=== PATIENT | male | born 1945 | race Caucasian/White ===

== ENCOUNTER 2018-05-18 17:16 | Emergency (ER) | payer MEDICARE, SELFPAY ==
[2018-05-18 17:18] VITALS: BP 196/70; PULSE 91; RESP 22; TEMP 36.6; O2SAT 100; BMI 36.6
--- NOTE | 2018-05-18 17:28 | RAD_ITS ---
STUDY: X-RAY - RIGHT RADIUS AND ULNA REASON FOR EXAM: Male, 72 years old. Dogbite. TECHNIQUE: 2 view(s) of the forearm. COMPARISON: None. FINDINGS: Extensive lacerations and soft tissue air is seen consistent with the history of lacerations from dog bites. Normal visualized radius. Normal visualized ulna. There is no demonstrated acute fracture. No radiopaque foreign bodies. RAD/Forearm 2 Views IMPRESSION: Normal x-ray examination of the radius and ulna. Extensive soft tissue air from dog bites. Electronically Signed: Apolinar Salcido MD at 18:46 EDT , Service support ,
--- NOTE | 2018-05-18 17:28 | RAD_ITS ---
STUDY: X-RAY - RIGHT HAND REASON FOR EXAM: Male, 72 years old. Multiple dog bites. TECHNIQUE: 3 view(s) of the hand. COMPARISON: None. FINDINGS: Normal radiocarpal articulation. Normal distal radioulnar joint. Normal visualized carpal bones. Normal carpal articulations Normal carpometacarpal articulation of the thumb. Normal second through fifth carpometacarpal joints. Normal metacarpi. Normal metacarpophalangeal joint of the thumb. Normal interphalangeal joint of the thumb. Normal proximal and distal phalanges of the thumb. Normal metacarpophalangeal joints of the second through fifth fingers. Normal proximal and distal interphalangeal joints of the second through fifth fingers. Normal phalanges of the second through fifth fingers. Soft tissue air is seen consistent with the history of dog bites. No radiopaque foreign bodies. RAD/Hand Min 3 Views IMPRESSION: No fractures or dislocations. Electronically Signed: Apolinar Salcido MD at 18:48 EDT , Service support ,
[2018-05-18] MEDS: Morphine 4 MG/ML Syringe IV ×2 (17:31→21:48)
[2018-05-18] MEDS: Ondansetron 4 MG/2 ML Vial IV (17:32)
[2018-05-18 17:36] VITALS: BP 171/82; PULSE 86; RESP 16
--- NOTE | 2018-05-18 17:43 | RAD_ITS ---
STUDY: X-RAY - LEFT HAND REASON FOR EXAM: Male, 72 years old. Multiple dog bites with puncture wounds in tears. TECHNIQUE: 3 view(s) of the hand. COMPARISON: None. FINDINGS: Normal radiocarpal articulation. Normal distal radioulnar joint. Normal visualized carpal bones. Normal carpal articulations Normal carpometacarpal articulation of the thumb. Normal second through fifth carpometacarpal joints. Normal metacarpi. Normal metacarpophalangeal joint of the thumb. Normal interphalangeal joint of the thumb. Normal proximal and distal phalanges of the thumb. Normal metacarpophalangeal joints of the second through fifth fingers. Mild degenerative changes of the interphalangeal joints. Normal phalanges of the second through fifth fingers. Soft tissue injury around the wrist without underlying foreign body. RAD/Hand Min 3 Views IMPRESSION: Soft tissue injury around the wrist without underlying fracture, dislocation or foreign body. Electronically Signed: Cynthia Ta MD at 20:08 EDT , Service support ,
--- NOTE | 2018-05-18 17:43 | RAD_ITS ---
STUDY: X-RAY - LEFT RADIUS AND ULNA REASON FOR EXAM: Male, 72 years old. Multiple dog bites. TECHNIQUE: 2 view(s) of the forearm. COMPARISON: None. FINDINGS: Extensive soft tissue air is seen consistent with a history of dog bites. No radiopaque foreign bodies are seen. Normal visualized radius. Normal visualized ulna. RAD/Forearm 2 Views IMPRESSION: Normal x-ray examination of the radius and ulna. Extensive soft tissue air. Electronically Signed: Apolinar Salicdo MD at 18:49 EDT , Service support ,
--- NOTE | 2018-05-18 17:49 | ED.RN ---
UNABLE TO ENTER ADACEL ORDER INTO [facility]. MED GIVEN ADACEL 0.5ML LOT [id number], EXP 07/15/2020. LEFT DELT. VACCINE INFORMATION SHEET GIVEN.
[2018-05-18 19:28] VITALS: BP 173/84; PULSE 80; RESP 16; O2SAT 98
[2018-05-18 20:30] VITALS: BP 165/82; PULSE 86; RESP 16; O2SAT 97
[2018-05-18 21:00] VITALS: BP 168/68; PULSE 90; RESP 18; O2SAT 96
--- NOTE | 2018-05-18 21:43 | ED.VISSUMM ---
- ER Visit Summary Date of Service: 05/18/18 Chief Complaint: Dog bites History of Present Illness: The patient is a 72 M with multiple dog bites. A pit bull in his neighborhood attacked him. He put up his forearms and the dog bit his bilateral arms. He is unsure of his tetanus status. Denies any numbness or weakness. Physical Examination: Blood pressure 196/70. Otherwise vitals unremarkable. Afebrile. Alert and oriented. No acute distress, but he appears uncomfortable. Bilateral upper extremities are neurovascularly intact distally. No gross deformities. He has multiple abrasions and lacerations. Left arm reveals a dorsal forearm laceration, approximately 5 cm in length. He also has multiple smaller abrasions over his left forearm and wrist. Right arm shows a 7 cm laceration transverse across his dorsal right wrist. He also has a 5 cm laceration over distal third of his dorsal forearm. He has 2 smaller lacerations over his volar forearm measuring 2 cm and 3 cm approximately. He also has multiple abrasions over his right forearm and wrist. Test Results: X-rays of his forearms and hands were unremarkable for fracture. He does have soft tissue injury. Emergency Department Course and Treatment: Tetanus was updated. Patient was treated with morphine. He also received a dose of Ancef IV. High risk of infection, neurovascular injury, and other complications discussed. Wounds were closed with saline and surgical cleanser using a fruit washer. There was some delay in obtaining x-ray results. Once his x-rays were negative, I anesthetized his left forearm laceration. This was closed loosely with 3 simple interrupted sutures. His abrasions were also cleaned. They were otherwise left open. Dressings applied and antibiotic ointment applied. Right forearm lacerations, on further inspection revealed extensor tendon rupture. This was closed loosely with 1 suture. His volar lacerations were left open. The more proximal laceration over his dorsal forearm was closed with 3 sutures, loosely. Wounds were covered with nonadherent dressings. Patient will need operative washout, tendon repair, and further surgical care. He was discussed with Dr. Kelly. Nonstick dressings applied. The patient was splinted with fingers in extension and wrist extended to about 20?. Patient tolerated this well and was neurovascular intact distally afterwards. Patient treated with Ancef. He received a prescription for Percocet and Augmentin. He should call Dr. Kelly's office tomorrow for follow-up and operative care [phone]. Return for increased pain, bleeding, or any other complications. If he has trouble following up or any other complications, he should return immediately. Do not wait for follow-up. Treatment Plan: As above Disposition: Discharged Impression: 1. Dog bite bilateral arms 2. Right wrist extensor digitorum tendon laceration This note was generated with [employer] dictation software. It may contain incorrect words, spelling, and punctuation that were not noted in review of the chart prior to signing ED Disposition - Plan for ED Patient: Disposition: Home or Assisted Living Chief Complaint: Bite Instructions: ED Bite Dog Prescriptions: Oxycodone HCl/Acetaminophen [Percocet 5/325] 1 tab PO Q6H PRN PRN 3 Days #12 tab PRN Reason: Pain Amox/Clavulanate Tablet [Augmentin Tablet] 875 mg PO Q12H #20 tab Additional Instructions: Call for follow-up with Dr. Kelly in the morning. [phone]. You will need to be seen right away for operative washout of your wounds and extensor tendon repair.
--- NOTE | 2018-05-18 21:48 | ED.DCSUM_ITS ---
- ER Visit Summary Date of Service: 05/18/18 Chief Complaint: Dog bites History of Present Illness: The patient is a 72 M with multiple dog bites. A pit bull in his neighborhood attacked him. He put up his forearms and the dog bit his bilateral arms. He is unsure of his tetanus status. Denies any numbness or weakness. Physical Examination: Blood pressure 196/70. Otherwise vitals unremarkable. Afebrile. Alert and oriented. No acute distress, but he appears uncomfortable. Bilateral upper extremities are neurovascularly intact distally. No gross deformities. He has multiple abrasions and lacerations. Left arm reveals a dorsal forearm laceration, approximately 5 cm in length. He also has multiple smaller abrasions over his left forearm and wrist. Right arm shows a 7 cm laceration transverse across his dorsal right wrist. He also has a 5 cm laceration over distal third of his dorsal forearm. He has 2 smaller lacerations over his volar forearm measuring 2 cm and 3 cm approximately. He also has multiple abrasions over his right forearm and wrist. Test Results: X-rays of his forearms and hands were unremarkable for fracture. He does have soft tissue injury. Emergency Department Course and Treatment: Tetanus was updated. Patient was treated with morphine. He also received a dose of Ancef IV. High risk of infection, neurovascular injury, and other complications discussed. Wounds were closed with saline and surgical cleanser using a cake washer. There was some delay in obtaining x-ray results. Once his x-rays were negative , I anesthetized his left forearm laceration. This was closed loosely with 3 simple interrupted sutures. His abrasions were also cleaned. They were otherwise left open. Dressings applied and antibiotic ointment applied. Right forearm lacerations, on further inspection revealed extensor tendon rupture. This was closed loosely with 1 suture. His volar lacerations were left open. The more proximal laceration over his dorsal forearm was closed with 3 sutures, loosely. Wounds were covered with nonadherent dressings. Patient will need operative washout, tendon repair, and further surgical care. He was discussed with Dr. Kelly. Nonstick dressings applied. The patient was splinted with fingers in extension and wrist extended to about 20?. Patient tolerated this well and was neurovascular intact distally afterwards. Patient treated with Ancef. He received a prescription for Percocet and Augmentin. He should call Dr. Kelly's office tomorrow for follow-up and operative care [phone]. Return for increased pain, bleeding, or any other complications. If he has trouble following up or any other complications, he should return immediately. Do not wait for follow-up. Treatment Plan: As above Disposition: Discharged Impression: 1. Dog bite bilateral arms 2. Right wrist extensor digitorum tendon laceration This note was generated with [employer] dictation software. It may contain incorrect words, spelling, and punctuation that were not noted in review of the chart prior to signing ED Disposition - Plan for ED Patient: Disposition: Home or Assisted Living Chief Complaint: Bite Instructions: ED Bite Dog Prescriptions: Oxycodone HCl/Acetaminophen [Percocet 5/325] 1 tab PO Q6H PRN PRN 3 Days #12 tab PRN Reason: Pain Amox/Clavulanate Tablet [Augmentin Tablet] 875 mg PO Q12H #20 tab Additional Instructions: Call for follow-up with Dr. Kelly in the morning. [phone]. You will need to be seen right away for operative washout of your wounds and extensor tendon repair.
[2018-05-18] MEDS: Cefazolin 1 GM/50 ML BAG IV (21:51)
--- NOTE | 2018-05-18 21:51 | DCINST.ED_ITS ---
ED Disposition - Plan for ED Patient: Chief Complaint: Bite Instructions: ED Bite Dog Prescriptions: Oxycodone HCl/Acetaminophen [Percocet 5/325] 1 tab PO Q6H PRN PRN 3 Days #12 tab PRN Reason: Pain Amox/Clavulanate Tablet [Augmentin Tablet] 875 mg PO Q12H #20 tab Additional Instructions: Call for follow-up with Dr. Kelly in the morning. [phone]. You will need to be seen right away for operative washout of your wounds and extensor tendon repair.
[2018-05-18] MEDS: HYDROcodone Bitartrate/Apap 5/325 Tablet PO (23:04)
[2018-05-18 23:05] VITALS: BP 150/75; PULSE 96; RESP 16; O2SAT 95
== END 2018-05-18 23:06 | disposition home or self-care (01) ==
PROVIDERS: Emergency Provider Emergency Medicine; Family Provider Family Medicine; PCP Family Medicine
DX: S66.329A Laceration of extensor muscle, fascia and tendon of unspecified finger at wrist and hand level, initial encounter (principal); S51.812A Laceration without foreign body of left forearm, initial encounter; S51.811A Laceration without foreign body of right forearm, initial encounter; S50.812A Abrasion of left forearm, initial encounter; S50.811A Abrasion of right forearm, initial encounter; W54.0XXA Bitten by dog, initial encounter; Y93.9 Activity, unspecified; Y92.89 Other specified places as the place of occurrence of the external cause; J45.909 Unspecified asthma, uncomplicated; Z79.899 Other long term (current) drug therapy
CPT/HCPCS: 12005; 73090; 73130; 90715; 96365; 96375; 96376; 99285; J2405

== ENCOUNTER → 2018-08-27 20:18 | Outpatient (CLI) | payer MEDICARE, SELFPAY | PROVIDERS: Family Provider Family Medicine; PCP Family Medicine; Referring Provider Family Medicine; Visit Provider Family Medicine | DX: J02.9 Acute pharyngitis, unspecified (principal) | CPT/HCPCS: 87070 ==

== ENCOUNTER → 2018-09-01 18:09 | Outpatient (CLI) | payer MEDICARE, SELFPAY | PROVIDERS: Family Provider Family Medicine; PCP Family Medicine; Referring Provider Otolaryngology; Visit Provider Otolaryngology | DX: B37.0 Candidal stomatitis (principal) | CPT/HCPCS: 87070; 87205 ==

== ENCOUNTER 2019-04-04 17:39 | Emergency (ER) | payer MEDICARE, SELFPAY ==
[2019-04-04 17:41] VITALS: BP 161/82; PULSE 75; RESP 15; TEMP 36.4; O2SAT 98; BMI 38.2
--- NOTE | 2019-04-04 17:49 | CT_ITS ---
STUDY: CT ABDOMEN AND PELVIS WITH CONTRAST REASON FOR EXAM: Male, 73 years old. Left lower quadrant pain. RADIATION DOSAGE (If Supplied By Facility): CTDIvol = ( 22.06 ) mGy, DLP = ( 1429.37 ) mGycm TECHNIQUE: Transaxial images were obtained from the dome of the diaphragm to the symphysis pubis without oral contrast. 100ML IV Isovue 300 was administered. Sagittal and coronal images were reconstructed. Individualized dose optimization techniques were used for this CT. COMPARISON: None. FINDINGS: The visualized lung bases are unremarkable. The visualized portions of the heart are within normal limits. Normal liver. There are surgical clips in the gallbladder fossa consistent with a prior cholecystectomy. Normal spleen. There is diffuse atrophy of the pancreas. Normal bilateral adrenal glands. There is mild cortical atrophy of the right kidney, consistent with chronic medical renal disease. There is mild cortical atrophy of the left kidney, consistent with chronic medical renal disease. Normal visualized stomach. Normal small intestine. Normal colon. The appendix is visualized and appears normal. There is diffuse atherosclerotic calcification of the abdominal aorta, without a demonstrated aneurysm. Normal inferior vena cava. Normal retroperitoneum. Normal urinary bladder. Normal visualized prostate gland. Normal abdominal wall. There are diffuse degenerative changes of the visualized lumbar spine. CT/Abdomen/Pelvis W IV Cont ONLY IMPRESSION: 1. No evidence of acute intra-abdominal process or focal inflammation. No evidence of bowel wall dilatation or air-fluid levels to suggest ileus versus obstruction. Normal appendix. Electronically Signed: Ace Kirby DO at 19:32 EDT , Service support ,
--- NOTE | 2019-04-04 17:52 | ED.DCSUM_ITS ---
- ER Visit Summary Date of Service: 04/04/19 Chief Complaint: Abdominal pain History of Present Illness: The patient is a 73 M with reported history of Crohn's disease who presents to the emergency department abdominal pain. Patient states that his symptoms began today. He states that he went out for lunch with his family at about noon. He states he had prime rib and salad. About 2 hours later, he began having sharp pain in his left lower quadrant. He states it hurts to move. He denies any diarrhea. He has been moving his bowels normally. He is noticed no blood in his bowel movement. The patient is only on Bentyl for his Crohn's. He does have a history of COPD but is not on home oxygen. He has had prior cholecystectomy, but no other abdominal surgery. He does not follow with GI, but does follow with his physician at the [facility]. Physical Examination: Vital signs reviewed General: Well-nourished, well-developed Head: Normocephalic, atraumatic Eyes: Pupils equal and reactive, extraocular muscles intact Neck, supple, no lymphadenopathy Heart: Regular rate and rhythm Respiratory: No distress, clear bilaterally Abdomen: Soft, mildly distended, tender in the left lower quadrant without rebound or guarding, no peritoneal signs Back: Nontender Extremities: Nontender, no edema, no cords Skin: Normal color no rash Neuro: Alert and oriented, no focal or lateralizing deficits Test Results: [] Emergency Department Course and Treatment: Patient states he has a history of Crohn's, but he is on no immunosuppressive agents. He has had no diarrhea, vomiting, or change in bowel habits. His pain was better acute after eating in his left lower quadrant. However, given his age and tenderness I did obtain imaging. Labs are obtained were unremarkable. Imaging shows really no acute abnormalities. With analgesics and antiemetics, his pain is improved and he is resting comfortably. His repeat exam is soft and nontender. There is a significant amount of stool burden on his CT. I do not suspect acute diverticulitis. At this time. I am going to treat the patient with antispasmodics and magnesium citrate. He is comfortable with this plan of care and will be discharged home. Treatment Plan: [] Disposition: Discharge Impression: 1. Left lower quadrant pain of unclear etiology This note was generated with [employer] software. It may contain incorrect words, spelling, and punctuation that were not noted in review of the chart prior to signing ED Disposition - Plan for ED Patient: Instructions: ED Abdominal Pain Unkn Cause Prescriptions: Dicyclomine HCl [Bentyl] 20 mg PO TIDAC #20 cap Docusate Sodium [Colace] 100 mg PO DAILY #20 cap Referrals: Cale Ansari MD [Primary Care Provider] -
[2019-04-04] MEDS: Morphine 4 MG/ML Syringe IV (18:14)
[2019-04-04] MEDS: 0.9% Normal Saline 1,000 ML 1000 ML IV (18:14)
[2019-04-04] MEDS: Ondansetron 4 MG/2 ML Vial IV (18:15)
[2019-04-04 18:17] LABS: Absolute Neutrophil Count 7.7 X10^3/uL (2.0-7.7); Basophil# 0.04 X10^3/uL; Basophil% 0.4 % (0-1); Eosinophil# 0.21 X10^3/uL; Eosinophils% 2.1 % (0-5); Hematocrit 42.9 % (40-54); Hemoglobin 14.7 g/dl (13.0-16.5); Lymphocyte % 13.7 % (19-41); Mean Corp Hgb Conc 34.3 g/gl (32-36); Mean Corpuscular Volume 90.5 fL (80-94); Mean Platelet Vol. 9.6 fl (6.2-12.0); Monocyte# 0.79 X10^3/uL; Monocyte% 7.8 % (0-10); Neutrophil # 7.73 X10^3/uL (2.7-7.7); Neutrophil % 75.8 % (47-70); Platelet Count 193 K/mm3 (150-450); RBC Distribution Width CV 12.8 % (11.6-14.6); RBC Distribution Width SD 42.2 fl (35.1-43.9); Red Blood Count 4.74 M/mm3 (4.6-6.2); White Blood Count 10.2 K/mm3 (4.4-11.0)
[2019-04-04 18:18] LABS: POSITIVE COUNT NO; POSITIVE DIFFERENTIAL NO; POSITIVE MORPHOLOGY NO
[2019-04-04 18:33] LABS: ALB/GLOB Ratio 1.1 RATIO (0.9-2.4); AST(SGOT) 17 U/L (15-37); Alanine Aminotransfer ALT/SGPT 29 U/L (16-61); Alkaline Phosphatase 105 U/L (45-117); Anion Gap 5 (5-15); BUN 21 mg/dL (7-18); BUN/Creat Ratio 18.6 RATIO (10-20); Calcium,Total 8.8 mg/dL (8.5-10.1); Chloride 106 mmol/L (98-107); Creatinine, Serum 1.13 mg/dL (0.70-1.30); EST Glomerular Filtration Rate 68 mL/min (>60); Est Glom Filt Rate - Afr Amer 82 mL/min (>60); Estimated Creatinine Clearance 61.91 ml/min; Globulin 3.7 g/dL (2.2-4.2); Glucose 96 mg/dL (74-106); Protein, Total 7.7 g/dL (6.4-8.2); Sodium Level 139 mmol/L (136-145)
[2019-04-04] MEDS: Magnesium Citrate 300 ML PO (19:45)
[2019-04-04 19:46] VITALS: BP 145/68; PULSE 64; RESP 18; O2SAT 96
[2019-04-04 19:49] VITALS: PULSE 68
== END 2019-04-04 19:51 | disposition home or self-care (01) ==
LOC: ED 18:00
PROVIDERS: Emergency Provider Emergency Medicine; Family Provider Family Medicine; PCP Family Medicine
DX: R10.32 Left lower quadrant pain (principal); K50.90 Crohn's disease, unspecified, without complications; K21.9 Gastro-esophageal reflux disease without esophagitis; J44.9 Chronic obstructive pulmonary disease, unspecified; Z79.899 Other long term (current) drug therapy; Z87.891 Personal history of nicotine dependence
CPT/HCPCS: 74177; 80053; 85025; 96361; 96374; 96375; 99284; J7030; Q9967; A4216; J2405

== ENCOUNTER → 2019-05-08 11:08 | Outpatient (CLI) | payer MEDICARE, SELFPAY ==
[2019-05-08 11:46] LABS: Hematocrit 42.2 % (40-54); Hemoglobin 14.1 g/dl (13.0-16.5); Mean Corp Hgb Conc 33.4 g/gl (32-36); Mean Corpuscular Hgb 30.5 pg (27.0-32.0); Mean Corpuscular Volume 91.1 fL (80-94); Mean Platelet Vol. 9.9 fl (6.2-12.0); Platelet Count 182 K/mm3 (150-450); RBC Distribution Width CV 13.3 % (11.6-14.6); RBC Distribution Width SD 43.7 fl (35.1-43.9); Red Blood Count 4.63 M/mm3 (4.6-6.2); White Blood Count 9.5 K/mm3 (4.4-11.0)
[2019-05-08 11:47] LABS: Scan Indicated on CBC? Y/N NO
== END ==
PROVIDERS: Family Provider Family Medicine; PCP Family Medicine; Referring Provider Internal Medicine Pulmonary Disease; Visit Provider Internal Medicine Pulmonary Disease
DX: J45.909 Unspecified asthma, uncomplicated (principal); T78.40XA Allergy, unspecified, initial encounter; K50.90 Crohn's disease, unspecified, without complications
CPT/HCPCS: 36415; 85027

== ENCOUNTER → 2019-07-10 11:18 | Outpatient (CLI) | payer MEDICARE, SELFPAY ==
[2019-07-10 13:17] LABS: Absolute Lymphocyte Count 0.98 X10^3/uL (0.83-4.51); Absolute Neutrophil Count 7.8 X10^3/uL (2.0-7.7); Basophil# 0.07 X10^3/uL; Basophil% 0.7 % (0-1); Eosinophil# 0.08 X10^3/uL; Eosinophils% 0.9 % (0-5); Hematocrit 41.5 % (40-54); Hemoglobin 13.7 g/dL (13.0-16.5); Lymphocyte # 0.98 X10^3/ul (4.0); Lymphocyte % 10.4 % (19-41); Mean Corpuscular Hgb 30.8 pg (27.0-32.0); Mean Corpuscular Volume 93.3 fL (80-94); Mean Platelet Vol. 10.4 fl (6.2-12.0); Monocyte# 0.36 X10^3/uL; Monocyte% 3.8 % (0-10); NRBC Flagged by Analyzer 0 % (0-5); Neutrophil # 7.81 X10^3/uL (2.7-7.7); Neutrophil % 83.3 % (47-70); Platelet Count 206 K/mm3 (150-450); RBC Distribution Width CV 13.1 % (11.6-14.6); RBC Distribution Width SD 44.3 fl (35.1-43.9); Red Blood Count 4.45 M/mm3 (4.6-6.2); White Blood Count 9.4 K/mm3 (4.4-11.0)
== END ==
PROVIDERS: Family Provider Family Medicine; PCP Family Medicine; Referring Provider Internal Medicine Pulmonary Disease; Visit Provider Internal Medicine Pulmonary Disease
DX: J45.909 Unspecified asthma, uncomplicated (principal)
CPT/HCPCS: 36415; 85025

== ENCOUNTER → 2019-09-08 12:15 | Outpatient (CLI) | payer MEDICARE, SELFPAY ==
[2019-09-08 12:58] LABS: Absolute Neutrophil Count 7.3 X10^3/uL (2.0-7.7); Basophil# 0.09 X10^3/uL; Eosinophil# 0.18 X10^3/uL; Eosinophils% 1.9 % (0-5); Hematocrit 44.3 % (40-54); Hemoglobin 14.7 g/dL (13.0-16.5); Lymphocyte % 11.9 % (19-41); Mean Corp Hgb Conc 33.2 g/dL (32-36); Mean Corpuscular Hgb 30.7 pg (27.0-32.0); Mean Corpuscular Volume 92.5 fL (80-94); Mean Platelet Vol. 10.2 fl (6.2-12.0); Monocyte# 0.57 X10^3/uL; Monocyte% 6.1 % (0-10); NRBC Flagged by Analyzer 0 % (0-5); Neutrophil # 7.27 X10^3/uL (2.7-7.7); Neutrophil % 78.3 % (47-70); Platelet Count 195 K/mm3 (150-450); RBC Distribution Width CV 12.8 % (11.6-14.6); RBC Distribution Width SD 43.5 fl (35.1-43.9); Red Blood Count 4.79 M/mm3 (4.6-6.2); White Blood Count 9.3 K/mm3 (4.4-11.0)
[2019-09-08 13:10] LABS: Anion Gap 3 (5-15); BUN 23 mg/dL (7-18); BUN/Creat Ratio 20.2 RATIO (10-20); Calcium,Total 8.7 mg/dL (8.5-10.1); Chloride 111 mmol/L (98-107); Creatinine, Serum 1.14 mg/dL (0.70-1.30); EST Glomerular Filtration Rate 67 mL/min (>60); Est Glom Filt Rate - Afr Amer 81 mL/min (>60); Glucose 119 mg/dL (74-106); Potassium 4.1 mmol/L (3.5-5.1); Sodium Level 142 mmol/L (136-145)
== END ==
PROVIDERS: Family Provider Family Medicine; PCP Family Medicine; Referring Provider Family Medicine; Visit Provider Family Medicine
DX: K57.92 Diverticulitis of intestine, part unspecified, without perforation or abscess without bleeding (principal); K50.90 Crohn's disease, unspecified, without complications
CPT/HCPCS: 36415; 80048; 85025

== ENCOUNTER → 2019-09-08 12:46 | Outpatient (CLI) | payer MEDICARE, SELFPAY ==
--- NOTE | 2019-09-08 12:52 | CT_ITS ---
STUDY: CT ABDOMEN AND PELVIS WITH CONTRAST REASON FOR EXAM: Male, 73 years old. Left lower quadrant pain. History of Crohn's disease. RADIATION DOSAGE (If Supplied By Facility): CTDIvol = ( 19.96 ) mGy, DLP = ( 1262.78 ) mGycm TECHNIQUE: Transaxial images were obtained from the dome of the diaphragm to the symphysis pubis with oral contrast. 100mL ml of Isovue 300 contrast was administered. Sagittal and coronal images were reconstructed. Individualized dose optimization techniques were used for this CT. COMPARISON: None. FINDINGS: The visualized lung bases are clear. The visualized portions of the heart and pericardium are within normal limits. The patient is status post cholecystectomy. The liver is within normal limits. There are no suspicious hepatic lesions. The spleen is normal in size. The pancreas is within normal limits. The adrenal glands are within normal limits. There are no renal or ureteral stones. There is no hydronephrosis. There are no focal renal lesions. Normal visualized stomach. There is no bowel obstruction or inflammation. The appendix is visualized and appears normal. The aorta is normal in caliber. There are atherosclerotic calcifications in the aorta. There is no abdominal or pelvic free air, free fluid, fluid collection or lymphadenopathy. The urinary bladder is thick-walled. There are no destructive osseous lesions. CT/Abdomen/Pelvis WITH Contrast IMPRESSION: Thick-walled urinary bladder. Clinical correlation is recommended to evaluate for cystitis. No bowel obstruction or inflammation. Normal appendix. Normal kidneys. No hydronephrosis. Electronically Signed: Michele Grande, at 15:54 EDT Tel , Service support ,
== END ==
PROVIDERS: Family Provider Family Medicine; PCP Family Medicine; Referring Provider Family Medicine; Visit Provider Family Medicine
DX: K57.92 Diverticulitis of intestine, part unspecified, without perforation or abscess without bleeding (principal); K50.90 Crohn's disease, unspecified, without complications
CPT/HCPCS: 36415; 74177; 80048; 85025; Q9967

== ENCOUNTER → 2019-10-13 08:32 | Outpatient (CLI) | payer MEDICARE, SELFPAY ==
--- NOTE | 2019-10-13 08:36 | RAD_ITS ---
STUDY: X-RAY - ESOPHAGUS (BARIUM SWALLOW) WITH FLUOROSCOPY REASON FOR EXAM: Male, 74 years old. Dysphagia for solids. TECHNIQUE: 20 fluoroscopic view(s) of the esophagus were obtained following swallowing of barium. FLUOROSCOPY TIME (if supplied): (0:24) minutes/seconds. COMPARISON: None. FINDINGS: There is no demonstrated esophageal foreign body. There is evidence of a small Zenker's diverticulum at the origin of the esophagus. Normal gastroesophageal junction, without a demonstrated hiatal hernia. The patient ingested a 12 mm tablet of barium without any difficulty. There is atherosclerotic calcification of the aortic arch with tortuosity of the descending aorta. Normal visualized pulmonary parenchyma. There are degenerative changes of the visualized thoracic spine. RAD/Esophagus Only IMPRESSION: Small Zenker's diverticulum at the origin of the esophagus. Electronically Signed: Abhishek Lemus, at 9:33 EST , Service support ,
== END ==
PROVIDERS: Family Provider Family Medicine; PCP Family Medicine; Referring Provider Family Medicine; Visit Provider Family Medicine
DX: K22.5 Diverticulum of esophagus, acquired (principal)
CPT/HCPCS: 74220

== ENCOUNTER → 2019-10-20 10:51 | Outpatient (CLI) | payer MEDICARE, SELFPAY ==
[2019-10-20 12:22] LABS: Absolute Lymphocyte Count 2.26 X10^3/uL (0.83-4.51); Absolute Neutrophil Count 4.3 X10^3/uL (2.0-7.7); Basophil# 0.09 X10^3/uL; Basophil% 1.1 % (0-1); Eosinophil# 0.42 X10^3/uL; Eosinophils% 5.3 % (0-5); Hematocrit 44.4 % (40-54); Hemoglobin 14.5 g/dL (13.0-16.5); Lymphocyte # 2.26 X10^3/ul (4.0); Lymphocyte % 28.6 % (19-41); Mean Corp Hgb Conc 32.7 g/dL (32-36); Mean Corpuscular Hgb 30.6 pg (27.0-32.0); Mean Corpuscular Volume 93.7 fL (80-94); Mean Platelet Vol. 10.2 fl (6.2-12.0); Monocyte# 0.75 X10^3/uL; Monocyte% 9.5 % (0-10); NRBC Flagged by Analyzer 0 % (0-5); Neutrophil # 4.34 X10^3/uL (2.7-7.7); Platelet Count 214 K/mm3 (150-450); RBC Distribution Width CV 12.9 % (11.6-14.6); Red Blood Count 4.74 M/mm3 (4.6-6.2); White Blood Count 7.9 K/mm3 (4.4-11.0)
[2019-10-24 13:32] LABS: Immunoglobulin E 213 IU/mL (6-495)
== END ==
PROVIDERS: Family Provider Family Medicine; PCP Family Medicine; Referring Provider Internal Medicine Pulmonary Disease; Visit Provider Internal Medicine Pulmonary Disease
DX: J45.909 Unspecified asthma, uncomplicated (principal)
CPT/HCPCS: 36415; 82785; 85025

== ENCOUNTER 2019-11-12 11:15 | Outpatient (RCR) | payer MEDICARE, SELFPAY ==
--- NOTE | 2019-11-12 12:02 | HP.PTEVAL ---
Patient's Visit Information LIBRADO GUILLEN is a 74 year old M referred to Physical Therapy by Cale King MD with a diagnosis of vertigo. Date of Evaluation: 11/12/19 Physical Therapist: Barrington Childers, DPT, OCS, CSCS - Visit Plan Frequency: 1x/Week Duration: 4-6 Weeks Plan: weekly x 2-4 as needed for. monitor positional, I treated with Wilber hannon and instruction today on management and minimizing head movement. May need other vestibular if dizzy persists without positive HD. Pt is to call prior to next visit if dizzyness worsens and should be checked for positional. - Subjective Findings: Saw chiropractor on Saturday who stretched him, when he rolled over on his side things started spinning and disorienting. Lasted that hour. Sitting still was OK but tried to pick something up off the floor and spun again. His brother picked him up and felt better. Went home but hard to walk without dizzyness. Went to Dr. King that day and sent for therapy. Pelion better the next morning. Moving head every half hour all day and came out of it. Leaning forward or bending forward can be disoriented. Currently feeling well. Pelion a little off yesterday bending forward disorenting temporarily. No diagnostics at doctor office. Activities back to normal. Sleep OK. - Pain PIÑA Pain Intensity (Out of 10): N/A Comment: pressure at times. - Objective Walks and trasnfers I into PT today. cervical ROM is WFL adn without dizzyness today. Walking VOR not dizzy or challenging for patient. - R hallpike jenny. + L hallpike for up torsional nystagmus 10 seconds. Treated with L parvez - Balance Scores Functional Gait Assessment Score: 29 % Disability: 3.3400 - Goals Goal 1:: abolish vertigo with head movements Goal Time Frame: 2-4 Weeks Goal 2:: - hallpike jenny testing. Goal Time Frame: 2-4 Weeks Goal 3:: Pt feel 100% back to normal Goal Time Frame: 4-6 Weeks Goal 4:: <10% DHI disability Goal Time Frame: 2-4 Weeks - Rehabilitation Potential Physical Therapy Diagnosis: L BPPV Rehabilitation Potential: Good - Anticipated Interventions Patient/Client Instruction: Educate patient on: Condition, Plan of Care For the Purpose of:: To increase tolerance to activity/condition/position Comment: positional treatments adn other vestibular if needed. For the Purpose of:: To increase tolerance to activity/condition/position, To improve ability of physical actions for home/community/work/leisure Thank you for the opportunity to evaluate your patient. For Medicare and Medicare HMO plans, please review the plan of care and approve it. It will need to be FAXED BACK to us at [phone] for Medicare purposes. For Medicare only, by signing this I certify the plan of care. Please let me know if there are questions or concerns regarding this plan of care. Physician Signature: Date:
--- NOTE | 2020-01-01 07:35 | HP.PT.NRP ---
HP - Discharge Summary (1) - Patient Information LIBRADO GUILLEN was seen in my office for initial evaluation on 11/12/19. The following Plan of Care was established for this patient: Initial Frequency: 1x/Week Initial Duration: 4-6 Weeks - Anticipated Interventions Patient/Client Instruction: Educate patient on: Condition, Plan of Care For the Purpose of:: To increase tolerance to activity/condition/position For the Purpose of:: To increase tolerance to activity/condition/position, To improve ability of physical actions for home/community/work/leisure This patient was last seen in our office 11/12/19. Pertinent comments regarding their Physical therapy will appear below: Pt seen one visit of positional treatment. she cancelled her f/u visit due to illness adn neglected to reschedule. At this point, it has been nearly 6 weeks and I will discontinue due to nonattendance. At this point I will be discontinuing this patient from physical therapy. I would be happy to see this patient again in the future if found appropriate by the physician. Thank you! Barrington Childers, DPT, OCS, CSCS
== END 2019-11-12 19:00 | disposition home or self-care (01) ==
LOC: PT 11:15
PROVIDERS: Family Provider Family Medicine; PCP Family Medicine; Referring Provider Family Medicine; Visit Provider Family Medicine
DX: R42 Dizziness and giddiness (principal)
CPT/HCPCS: 97161

== ENCOUNTER 2019-11-28 14:33 | Emergency (ER) | payer MEDICARE, SELFPAY ==
[2019-11-28 14:34] VITALS: BP 173/107; PULSE 86; RESP 16; TEMP 36.8; O2SAT 98; BMI 37.7
[2019-11-28 14:48] VITALS: BP 155/76; PULSE 76; RESP 18; O2SAT 96
--- NOTE | 2019-11-28 14:57 | CT_ITS ---
STUDY: CT BRAIN WITHOUT CONTRAST REASON FOR EXAM: Male, 74 years old. HEAD PRESSURE, PAIN X 2 WEEKS RADIATION DOSAGE (If Supplied By Facility): CTDIvol = ( 44.99 ) mGy, DLP = ( 829.85 ) mGycm TECHNIQUE: Transaxial CT imaging of the brain was performed without administration of intravenous contrast material. Individualized dose optimization techniques were used for this CT. COMPARISON: Report from 11/01/2010 (images not available). FINDINGS: Normal soft tissue structures. Normal calvarium. There is mild cerebral atrophy with widening of the extra-axial spaces and ventricular dilatation. There are areas of decreased attenuation within the white matter tracts of the supratentorial brain, consistent with microvascular disease changes. There is a small round hyperdense extra-axial lesion of the right frontal region measuring 1.1 x 1.1 cm without significant mass effect, likely correlating to probable meningioma described on prior CT report. Expected mild overlying bony remodeling. Normal basal ganglia and thalami. Normal brainstem. Normal cerebellum. There is no intracranial hemorrhage. There are no findings of an acute ischemic infarction. There is atherosclerosis of the carotid siphons and vertebral arteries. There is mucoperiosteal inflammatory disease of the paranasal sinuses consistent with moderate chronic sinusitis. There is soft tissue density in the right external auditory canal, likely representing cerumen. CT/Brain/Head without Contrast IMPRESSION: 1. No acute intracranial hemorrhage or mass effect. Electronically Signed: Zen Parker MD ([place]) at 15:42 EST , Service support ,
[2019-11-28] MEDS: DiphenhydrAMINE 50 MG/ML Syringe 25 MG IV (15:45)
[2019-11-28] MEDS: 0.9% Normal Saline 1,000 ML 999 ML IV (15:47)
[2019-11-28] MEDS: Metoclopramide 10 MG/2 ML Vial IV (15:47)
--- NOTE | 2019-11-28 16:34 | ED.DCSUM_ITS ---
- ER Visit Summary Date of Service: 11/28/19 Chief Complaint: Headache History of Present Illness: The patient is a 74 M who presents with a headache. He said this headache for 2 weeks. He describes a continuous throbbing in his head. Denies any falls or trauma. He has had nausea but no vomiting. He st ates at that time when it started he was having vertigo. He had an Conor maneuver done which helped his symptoms. He his dizziness is now gone but he still has this headache. He has meclizine as needed and he was also put on Augmentin at home. He has no history of migraines. He denies any fevers or any other recent illnesses. He denies any neck pain. Physical Examination: Vital signs reviewed. He does have some bilateral mastoid tenderness to palpation. HEENT exam unremarkable. Heart is regular rate and rhythm without murmurs. Lungs are clear to auscultation. Abdomen is soft and nontender. Extremities reveal no edema. Skin exam normal. Neurologic exam normal. Test Results: CT scan of the head is normal. Emergency Department Course and Treatment: Patient was given Reglan and Benadryl and IV fluids. He states his headache was unchanged so I gave him some Toradol. His blood pressure is 155 systolic. I do not feel that this is the cause. I see no infectious causes for the patient's pain. I feel he can be discharged to use [id number] medications such as Tylenol, Aleve or ibuprofen for his headache at home. He will call his doctor on Saturday for follow-up. Treatment Plan: [] Disposition: Discharge Impression: Headache This note was generated with [employer] dictation software. It may contain incorrect words, spelling, and punctuation that were not noted in review of the chart prior to signing ED Disposition - Plan for ED Patient: Referrals: Cale Raymundo MD [Primary Care Provider] -
--- NOTE | 2019-11-28 16:35 | ED.DEP ---
ED Disposition - Plan for ED Patient: Disposition: Home or Assisted Living Instructions: HEADACHE, Unspecified Referrals: Cale Raymundo MD [Primary Care Provider] -
[2019-11-28] MEDS: Ketorolac 30 MG/ML Syringe IV (16:40)
[2019-11-28 16:42] VITALS: BP 147/80; PULSE 67; RESP 16; O2SAT 98
[2019-11-28 17:14] VITALS: BP 157/78; PULSE 65; RESP 16; O2SAT 98
== END 2019-11-28 17:15 | disposition home or self-care (01) ==
PROVIDERS: Emergency Provider Emergency Medicine; Family Provider Family Medicine; PCP Family Medicine
DX: R51 Headache (principal)
CPT/HCPCS: 70450; 96361; 96374; 96375; 99282; J7030; A4216

== ENCOUNTER 2019-11-30 22:11 | Emergency (ER) | payer MEDICARE, SELFPAY ==
[2019-11-30 22:12] VITALS: BP 162/91; PULSE 93; RESP 20; TEMP 37.1; O2SAT 98; BMI 37.7
--- NOTE | 2019-11-30 22:48 | EKG12_ITS ---
Test Reason : DYSRHYTHMIA Blood Pressure : / mmHG Vent. Rate : 076 BPM Atrial Rate : 076 BPM P-R Int : 152 ms QRS Dur : 086 ms QT Int : 380 ms P-R-T Axes : 060 050 048 degrees QTc Int : 427 ms Normal sinus rhythm Normal ECG Confirmed by NASEEM LOVELL, ALISIA ([id number]), electronic news gathering editor SAM GUILLEN ([id number]) on 12/03/2019 10:30:39 AM Referred By: BB Confirmed By:ALISIA GUSMAN MD
--- NOTE | 2019-11-30 22:48 | RAD_ITS ---
HISTORY: C/O SOB SINCE 2229 EXAMINATION/TECHNIQUE: XR Chest 2 Views: COMPARISON: 04/12/2015 FINDINGS: Cardiac telemetry leads in place. No significant change. Normal heart size. Prominent lung volumes. No vascular congestion, pleural effusion, or acute pulmonary infiltration. No pneumothorax. Atherosclerotic thoracic aorta. Right axillary surgical clips. RAD/Chest PA and Lateral IMPRESSION: No acute cardiopulmonary disease. at 0042 Reported and signed by: Pedro Soto MD Electronically Signed: Pedro Soto, at 0:41 EST Tel , Service support ,
--- NOTE | 2019-11-30 22:49 | ED.VIS.GEN ---
History of Present Illness Chief Complaint: General Illness Detail of Chief Complaint: ilia smolly; see below Informant: Patient Timing: Intermittent, Lasts - minutes Quality: chills Location: from my legs up my body to the top of my stomach Current Severity: Mild Maximum Severity: Severe Worsened by: lying supine/reclined Relieved by: sitting up Associated Symptoms: sob. headache. Narrative: Patient presents complaining of multiple symptoms. He was started on Humira around for Crohn's and states since sometime shortly thereafter he has been having headaches off and on that are bifrontal/temporal, usually more prominent on one side than the other, today it is more prominent on the right. Saw his doctor for it relatively recently, was told he might have a sinus infection put on amoxicillin which she is now taking. He was seen here in the ER 2 days ago for the headaches and had a CT of his head that was negative, and given some medication at that time that took the headache away. Yesterday he had no headache. Today it came back while he was driving, relatively gradually, no thunderclap or loss of consciousness. He has had no focal neurologic symptoms with this, photophobia, vision changes, or vomiting. He does feel nauseated now but does not know if that is associated with a headache or not. He presents not necessarily for that, but for the other symptoms that developed today. He states when he lies back, even if not totally supine, he gets chills that go up his abdomen. They start in his legs. Cannot tell if it actually feels tingly or not, but if it does it is bilateral and symmetric and mild. He does not have any focal weakness when this occurs. He feels short of breath lying back as well, almost to the point of choking/gasping. When he sits up the symptoms resolve. He denies having any discomfort in his chest. The chills go up to his upper abdomen. He denies feeling any Crohn's pain, but states it feels like it wants to flareup but it is not. He has a history of reflux, and states this does not feel like his reflux symptoms have, he has had those off-and-on for years. He denies any pain in his jaw, neck, back when the symptoms occur. Denies any loss of consciousness or near syncope. He noticed he had some mild vertiginous symptomatology a few minutes ago when he got up to move around. Denies any ear pain, ringing, earache, or other upper respiratory infection symptoms. He denies having a cough. Denies any history of heart problems, swelling in his legs, he has asthma but states that does not feel like a factor here. - Past Medical History (1) GERD (gastroesophageal reflux disease) Status: Chronic (2) Bronchial asthma Status: Chronic (3) Crohn's disease Status: Chronic Past Medical History - Allergies and Home Meds Allergies/Adverse Reactions: Allergies escitalopram Adverse Reaction (Verified 11/30/19 22:14) Other SUICIDAL IDEATION Primary Care Physician: Cale Raymundo MD [Primary Care Provider] - Surgical History: cholecystectomy Smoking Status: Former smoker Alcohol: None Review of Systems General: Reports: Malaise. Denies: Chills, Fever, Sweats Eyes: Denies: Visual changes - bilaterally, Diplopia ENT: Denies: Bilateral ear pain, Rhinorrhea, Sore throat Cardiovascular: Denies: Chest pain, Palpitations Respiratory: Reports: Dyspnea, Orthopnea. Denies: Cough, Sputum, Dyspnea on exertion, Paroxysmal nocturnal dyspnea Gastrointestinal: Reports: Nausea. Denies: Abdominal pain, Vomiting, Diarrhea, Melena, Hematochezia Genitourinary: Denies: Dysuria, Hematuria, Frequency Musculoskeletal: Denies: Neck pain, Back pain, Swelling, Extremity Pain Skin: Denies: Rash, Wounds Neurological: Reports: Headache, Parasthesia. Denies: Weakness, Numbness Endocrine: Denies: Polyuria, Polydipsia, Heat intolerance, Cold intolerance Hematologic: Denies: Easy bruising, Easy bleeding Physical Exam Vital Signs/Narrative: Vital Signs Temp Pulse Resp BP Pulse Ox 11/30/19 22:12 98.7 F 93 20 H 162/91 H 98 Inital Vital Signs reviewed: Yes General: Well nourished, Well developed, Obese - trunkal, No Acute Distress Head: Normocephalic, Atraumatic Eyes: Perrl, EOMI ENT: Moist mucous membranes, No rhinorrhea, TM's clear. Negative for: Nasal congestion, Sinus tenderness Neck: Supple, Nontender, No lymphadenopathy, No JVD Cardiovascular: Regular rate, Regular rhythm, No murmurs, Normal S1, Normal S2. Negative for: Tachycardia Respiratory: No distress, CTA bilaterally, Chest nontender Abdomen: Soft, Nontender, Nondistended, Normal bowel sounds. Negative for: Pulsatile mass Back: Nontender, Normal Inspection. Negative for: CVA tenderness Extremities: Nontender, No edema. Negative for: Calf Tenderness Skin: Normal color, No rash, No Trauma Neurological: Alert, Oriented x3, Cranial nerves II-XII grossly intact, Normal Strength, Normal Sensation, Normal DTR, Normal Gait Psychological: Normal affect, Normal Mood Diagnostic/Tx/Re-eval Impressions Chest X-Ray 11/30/19 22:48 IMPRESSION: No acute cardiopulmonary disease. at 0042 Reported and signed by: Pedro Soto MD Electronically Signed: Pedro Soto, at 0:41 EST Tel , Service support , 11/30/19 22:48 Chest PA and Lateral [RAD] Stat Laboratory Results 11/30/19 11/30/19 11/30/19 23:15 23:15 23:15 WBC 7.3 RBC 4.35 L Hgb 13.3 Hct 39.7 L MCV 91.3 MCH 30.6 MCHC 33.5 RDW Std Deviation 42.2 RDW Coeff of Sandra 12.7 Plt Count 174 MPV 10.0 Immature Gran % (Auto) 0.500 Neut % (Auto) 59.6 Lymph % (Auto) 25.5 [place] % (Auto) 10.0 Eos % (Auto) 3.6 Baso % (Auto) 0.8 Absolute Neuts (auto) 4.3 Absolute Lymphs (auto) 1.86 Nucleated RBC % 0 Sodium 142 Potassium 3.8 Chloride 112 H Carbon Dioxide 27.0 Anion Gap 3 L BUN 19 H Creatinine 1.07 Estim Creat Clear Calc 64.43 Est GFR (MDRD) Af Amer 87 Est GFR (MDRD) Non-Af 72 BUN/Creatinine Ratio 17.8 Glucose 120 H Calcium 8.8 Total Bilirubin 0.30 AST 16 ALT 35 Alkaline Phosphatase 81 Troponin I < 0.015 B-Natriuretic Peptide 56.9 Total Protein 6.9 Albumin 3.5 Globulin 3.4 Albumin/Globulin Ratio 1.0 Lipase 132 - Rhythm Strip Rhythm Strip: Sinus Rhythm Rate: 75 Ectopy: None - EKG Initial EKG Interpretation: Sinus Rhythm, No Acute Injury Pattern - normal EKG Prior: Unchanged - Medical Decision Making Labs and chest x-ray and EKG are all very normal including BNP. There is no sign of a pleural effusion. Low BNP in double digits and rules out acute congestive heart failure as cause for his symptoms. There is no electrical alternans, low voltage, or cardiomegaly on his chest x-ray, which is unchanged compared with his prior with regards to the cardiac shadow. Therefore, I gave him a GI cocktail and an injection of Bentyl. He states all of his symptoms resolved and even with lying down he feels much better without dyspnea. For this reason I do not think he needs to have testing for pulmonary embolus or other acute cardiopulmonary pathology right now. His headaches sound like they may be a side effect of Humira, which is described but less frequently, it is possible that the respiratory symptoms could be a side effect of the Humira as well. I do not think he is having a Crohn's exacerbation, his stools have been normal without any blood, he has no diarrhea, and he has no abdominal tenderness, so no CT is indicated at this time. He is reassured advised to follow-up with his doctor, and continue taking his omeprazole. ED Disposition - Plan for ED Patient: Disposition: Home or Assisted Living Diagnosis: Spasm of bowel, Headache, Dyspnea Instructions: ABDOMINAL PAIN, Unkown Cause, (Male) Referrals: Cale Raymundo MD [Primary Care Provider] - 3-5 Days Additional Instructions: Headaches may be a side effect of the Humira, short shallow breathing has also been described; the abdominal symptoms are probably unrelated, but if these are recurrent, follow-up with your doctor.
[2019-11-30] MEDS: Ondansetron 4 MG/2 ML Vial IV (23:18)
[2019-11-30 23:25] LABS: Absolute Lymphocyte Count 1.86 X10^3/uL (0.83-4.51); Absolute Neutrophil Count 4.3 X10^3/uL (2.0-7.7); Basophil# 0.06 X10^3/uL; Basophil% 0.8 % (0-1); Eosinophil# 0.26 X10^3/uL; Eosinophils% 3.6 % (0-5); Hematocrit 39.7 % (40-54); Hemoglobin 13.3 g/dL (13.0-16.5); Lymphocyte # 1.86 X10^3/ul (4.0); Lymphocyte % 25.5 % (19-41); Mean Corp Hgb Conc 33.5 g/dL (32-36); Mean Corpuscular Hgb 30.6 pg (27.0-32.0); Mean Corpuscular Volume 91.3 fL (80-94); Monocyte# 0.73 X10^3/uL; NRBC Flagged by Analyzer 0 % (0-5); Neutrophil # 4.34 X10^3/uL (2.7-7.7); Neutrophil % 59.6 % (47-70); Platelet Count 174 K/mm3 (150-450); RBC Distribution Width CV 12.7 % (11.6-14.6); RBC Distribution Width SD 42.2 fl (35.1-43.9); Red Blood Count 4.35 M/mm3 (4.6-6.2); White Blood Count 7.3 K/mm3 (4.4-11.0)
[2019-11-30 23:42] LABS: AST(SGOT) 16 U/L (15-37); Alanine Aminotransfer ALT/SGPT 35 U/L (16-61); Albumin, Serum 3.5 g/dL (3.2-5.0); Alkaline Phosphatase 81 U/L (45-117); Anion Gap 3 (5-15); BUN 19 mg/dL (7-18); BUN/Creat Ratio 17.8 RATIO (10-20); Calcium,Total 8.8 mg/dL (8.5-10.1); Chloride 112 mmol/L (98-107); Creatinine, Serum 1.07 mg/dL (0.70-1.30); EST Glomerular Filtration Rate 72 mL/min (>60); Est Glom Filt Rate - Afr Amer 87 mL/min (>60); Estimated Creatinine Clearance 64.43 ml/min; Globulin 3.4 g/dL (2.2-4.2); Glucose 120 mg/dL (74-106); Lipase 132 U/L (73-393); Potassium 3.8 mmol/L (3.5-5.1); Protein, Total 6.9 g/dL (6.4-8.2); Sodium Level 142 mmol/L (136-145)
[2019-11-30 23:52] LABS: BNP,B-Type NATRIURETIC PEPTIDE 56.9 pg/mL (0-100)
[2019-12-01 00:40] VITALS: PULSE 72; RESP 12; O2SAT 97
[2019-12-01] MEDS: Mag Hydrox/Al Hydrox/Simeth 30 ML UDC PO (00:40)
[2019-12-01] MEDS: Dicyclomine 20 MG/2 ML Vial 10 MG IM (00:41)
[2019-12-01 01:43] VITALS: BP 131/69; PULSE 70; RESP 13; O2SAT 97
== END 2019-12-01 01:44 | disposition home or self-care (01) ==
PROVIDERS: Emergency Provider Emergency Medicine; Family Provider Family Medicine; PCP Family Medicine
DX: R19.8 Other specified symptoms and signs involving the digestive system and abdomen (principal); R51 Headache; R06.00 Dyspnea, unspecified; K21.9 Gastro-esophageal reflux disease without esophagitis; K50.90 Crohn's disease, unspecified, without complications; J45.909 Unspecified asthma, uncomplicated; Z90.49 Acquired absence of other specified parts of digestive tract; Z87.891 Personal history of nicotine dependence
CPT/HCPCS: 71046; 80053; 83690; 83880; 84484; 85025; 93005; 96372; 96374; 99285; A4216; J2405

== ENCOUNTER 2019-12-02 01:35 | Emergency (ER) | payer MEDICARE, SELFPAY ==
[2019-12-02 01:36] VITALS: BP 177/82; PULSE 81; RESP 18; TEMP 36.6; O2SAT 99; BMI 38.0
--- NOTE | 2019-12-02 01:50 | CT_ITS ---
STUDY: CT ABDOMEN AND PELVIS WITH CONTRAST REASON FOR EXAM: Male, 74 years old. ABDOMEN PAIN -- HX:CROHN''S,ASTHMA,GERD AND CHOLECYSTECTOMY -- * PT HAD PRIOR INJECTION AT ANOTHER HOSPITAL YESTERDAY THAT WE WERE NOT INFORMED ABOUT RADIATION DOSAGE (If Supplied By Facility): CTDIvol = ( 18.64 ) mGy, DLP = ( 1342.29 ) mGycm TECHNIQUE: Transaxial images were obtained from the dome of the diaphragm to the symphysis pubis without oral contrast. IV 100mL Isovue-300 was administered. Sagittal and coronal images were reconstructed. Individualized dose optimization techniques were used for this CT. COMPARISON: 09/08/2019. FINDINGS: There is mild posterior dependent lower lobe atelectasis, remainder of the lung bases are clear. The visualized portions of the heart are within normal limits. Normal liver. There are surgical clips in the gallbladder fossa consistent with a prior cholecystectomy. Normal spleen. Normal pancreas. Normal bilateral adrenal glands. There is a punctate stone versus early accumulation of contrast within the renal collecting system within the middle pole of the right kidney measuring 3 mm in the upper pole of the left kidney measuring 2.7 mm. There is minimal nonspecific bilateral perinephric stranding. Remainder bilateral kidneys within normal limits. The stomach is decompressed otherwise unremarkable. No hiatal hernia. Normal small intestine. There is increased fecal debris within the colon consistent with constipation. The appendix is visualized and appears normal. There is diffuse atherosclerotic calcification of the abdominal aorta, without a demonstrated aneurysm. Normal inferior vena cava. Normal retroperitoneum. Urinary bladder is opacified with contrast with multiple urinary bladder diverticuli present. Normal visualized prostate gland. Normal abdominal wall. Diffuse osteopenia along with mild degenerative disease of the spine, more severe at L4-L5. CT/Abdomen/Pelvis W IV Cont ONLY IMPRESSION: Constipation. No acute appendicitis or bowel obstruction. Status post cholecystectomy, remainder of abdominal viscera are unremarkable. Urinary bladder diverticuli, remainder of the exam unremarkable. Electronically Signed: Ary García MD at 3:02 EST , Service support ,
[2019-12-02] MEDS: Ondansetron 4 MG/2 ML Vial IV (02:01)
[2019-12-02] MEDS: 0.9% Normal Saline 1,000 ML 1000 ML IV (02:01)
[2019-12-02] MEDS: Morphine 4 MG/ML Syringe IV (02:01)
[2019-12-02 02:13] LABS: Absolute Lymphocyte Count 1.73 X10^3/uL (0.83-4.51); Absolute Neutrophil Count 5.2 X10^3/uL (2.0-7.7); Basophil# 0.05 X10^3/uL; Basophil% 0.6 % (0-1); Eosinophils% 2.5 % (0-5); Hematocrit 40.8 % (40-54); Hemoglobin 13.6 g/dL (13.0-16.5); Lymphocyte # 1.73 X10^3/ul (4.0); Lymphocyte % 21.8 % (19-41); Mean Corp Hgb Conc 33.3 g/dL (32-36); Mean Corpuscular Hgb 30.5 pg (27.0-32.0); Mean Corpuscular Volume 91.5 fL (80-94); Monocyte# 0.73 X10^3/uL; Monocyte% 9.2 % (0-10); NRBC Flagged by Analyzer 0 % (0-5); Neutrophil # 5.21 X10^3/uL (2.7-7.7); Neutrophil % 65.5 % (47-70); Platelet Count 185 K/mm3 (150-450); RBC Distribution Width CV 12.9 % (11.6-14.6); RBC Distribution Width SD 42.8 fl (35.1-43.9); Red Blood Count 4.46 M/mm3 (4.6-6.2)
[2019-12-02 02:32] LABS: Anion Gap 4 (5-15); BUN 21 mg/dL (7-18); Calcium,Total 8.9 mg/dL (8.5-10.1); Chloride 112 mmol/L (98-107); Creatinine, Serum 1.31 mg/dL (0.70-1.30); EST Glomerular Filtration Rate 57 mL/min (>60); Est Glom Filt Rate - Afr Amer 69 mL/min (>60); Estimated Creatinine Clearance 52.63 ml/min; Glucose 100 mg/dL (74-106); Sodium Level 142 mmol/L (136-145)
--- NOTE | 2019-12-02 03:44 | ED.DCSUM_ITS ---
History of Present Illness Chief Complaint: Abd Pain Narrative: Patient presenting for evaluation secondary to abdominal pain. Patient reports that he has a underlying history of Crohn's disease and is on Humira. He states that over the course of the last couple of days he has been dealing with left lower quadrant abdominal pain. It is a continuous type sharp pain. Patient reports that he was actually just up at the emergency department at the [facility], and had a work-up that included a head CT, laboratory work-up, and an abdominal ultrasound and he reports that he was discharged at 9 PM. He reports that his pain is severe and worse, and is continuing in his left lower quadrant. He denies any fevers. He denies any nausea or vomiting. He denies any diarrhea or blood in his stools. Patient does have a past history of cholecystectomy. Review of systems otherwise negative. Past Medical History - Allergies and Home Meds Allergies/Adverse Reactions: Allergies escitalopram Adverse Reaction (Verified 12/02/19 01:48) Other SUICIDAL IDEATION Primary Care Physician: Cale Raymundo MD [Primary Care Provider] - Past Medical History: - - GERD, Crohn's Surgical History: cholecystectomy Smoking Status: Never smoker Review of Systems All systems negative except as indicated General: Denies: Chills, Fever, Sweats Eyes: Denies: Visual changes - bilaterally, Diplopia ENT: Denies: Rhinorrhea, Sore throat Cardiovascular: Denies: Chest pain, Palpitations Respiratory: Denies: Dyspnea, Cough, Dyspnea on exertion Gastrointestinal: Reports: Abdominal pain Genitourinary: Denies: Dysuria, Hematuria, Frequency Musculoskeletal: Denies: Back pain, Extremity Pain Skin: Denies: Rash, Wounds Neurological: Reports: Headache Physical Exam Vital Signs/Narrative: Vital Signs Temp Pulse Resp BP Pulse Ox 12/02/19 01:36 97.8 F 81 18 177/82 H 99 Inital Vital Signs reviewed: Yes General: Well nourished, Well developed, Obese Head: Normocephalic, Atraumatic Eyes: Perrl, EOMI ENT: Moist mucous membranes, No rhinorrhea Neck: Supple, Nontender Cardiovascular: Regular rate, Regular rhythm, No murmurs Respiratory: No distress, CTA bilaterally, Chest nontender Abdomen: Tender, Guarding - With palpation of the left lower quadrant, no evidence of rebound tenderness or diffuse rigidity Back: Nontender, Normal Inspection Extremities: Nontender, Edema - Bilateral lower extremity nonpitting edema Skin: Normal color, No rash Neurological: Alert, Oriented x3, Cranial nerves II-XII grossly intact, Normal Strength, Normal Sensation Psychological: Normal affect, Normal Mood Diagnostic/Tx/Re-eval - Medical Decision Making Patient presented for evaluation secondary to abdominal pain. Pain was addressed with morphine and Zofran. CBC and chemistry found to be unremarkable. CT abdomen and pelvis was performed with IV contrast. Patient did tell me that he did not have CT imaging of his abdomen and had not had any contrast load, but his CT of his abdomen shows a large amount of contrast within his bladder which would be consistent with getting a contrast load. CT does not demonstrate any evidence of inflammatory changes abscess or acute pathology and does show some evidence of constipation. Patient was continuing to complain of a significant amount of pain on repeat evaluation at 345 and was given a milligram of Dilaudid and magnesium citrate. Repeat evaluation of the patient at 445 shows him to have improvement of his abdominal pain. Abdominal exam is benign, and shows no reproducible pain at this time. Patient at this point I feel is appropriate for discharge. I reviewed his prescription reporting record which is unremarkable he will be sent home with a short course of Percocet for treatment of his pain. He reports that he has laxatives at home I recommended that he start taking those daily until he starts having a daily soft stool. I recommended follow-up with primary care. Patient understands signs and symptoms for which to return. Disposition: Home ED Disposition - Plan for ED Patient: Disposition: Home or Assisted Living Diagnosis: Abdominal pain, Constipation, History of Crohn's disease Instructions: ABDOMINAL PAIN, Unkown Cause, (Male) Prescriptions: Oxycodone HCl/Acetaminophen [Percocet 5/325] 1 tab PO Q6H PRN PRN 3 Days #12 tab PRN Reason: Pain Prescription Printed Referrals: Cale Raymundo MD [Primary Care Provider] - 1-2 Days if not improving
[2019-12-02] MEDS: HYDROmorphone 1 MG/ML Syringe IV (03:45)
[2019-12-02 03:48] VITALS: BP 173/93; PULSE 81; RESP 20; O2SAT 98
[2019-12-02 04:49] VITALS: BP 142/85; PULSE 80; RESP 16; O2SAT 96
[2019-12-02] MEDS: Magnesium Citrate 300 ML PO (04:50)
== END 2019-12-02 06:42 | disposition home or self-care (01) ==
PROVIDERS: Emergency Provider Emergency Medicine; Family Provider Family Medicine; PCP Family Medicine
DX: K59.00 Constipation, unspecified (principal); K50.90 Crohn's disease, unspecified, without complications; R10.32 Left lower quadrant pain; E66.9 Obesity, unspecified; Z68.38 Body mass index [BMI] 38.0-38.9, adult; K21.9 Gastro-esophageal reflux disease without esophagitis; Z90.49 Acquired absence of other specified parts of digestive tract
CPT/HCPCS: 74177; 80048; 85025; 96361; 96374; 96375; 99285; J7030; Q9967; A4216; J2405

== ENCOUNTER 2019-12-03 22:23 | Emergency (ER) | payer MEDICARE, SELFPAY ==
[2019-12-02 01:36] VITALS: BMI 38.0
[2019-12-03 22:24] VITALS: BP 179/91; PULSE 110; RESP 16; TEMP 36.4; O2SAT 94; BMI 38.2
--- NOTE | 2019-12-03 22:34 | ED.RN ---
PT PRESENTS WITH MEDICATION BOTTLES, OT HAS 8 PERCOCET TABLETS AND 60 NAPROXEN. MEDICATIONS PLACED IN BELONGINGS BAG.
--- NOTE | 2019-12-03 22:41 | ED.DCSUM_ITS ---
- ER Visit Summary Date of Service: 12/03/19 Chief Complaint: Abdominal pain, suicidal ideation History of Present Illness: The patient is a 74 M presenting with abdominal pain. Patient has a history of Crohn's disease and has had daily pain. He was seen in the ED yesterday. He was told he had constipation. He was given magnesium citrate and Percocet. He had a normal bowel movement today. He states this afternoon the pain became severe. He states he had a pistol and was considering suicide. He called his brother who called the police. He states his pain has now subsided. He would like to speak to a counselor. Physical Examination: Vitals are stable. Patient is afebrile. Alert no acute distress. HEENT exam is unremarkable. Neck is supple. Lungs are clear and equal bilaterally. Heart is regular rate and rhythm. Abdomen is soft mild lower quadrant tenderness with no guarding or rebound Extremities are unremarkable. Skin is warm and dry. No focal neurologic deficit. Depressed affect Remainder of exam is unremarkable. Emergency Department Course and Treatment: CBC, chemistries unremarkable. Urinalysis unremarkable. Tox positive for opiates. Alcohol negative. Patient states his pain is at his baseline level and is no worse than usual. Discussed with the counseling center for evaluation. Disposition: Per counseling center Impression: Abdominal pain, suicidal ideation This note was generated with [email or web address] dictation software. It may contain incorrect words, spelling, and punctuation that were not noted in review of the chart prior to signing ED Disposition - Plan for ED Patient: Referrals: Cale Raymundo MD [Primary Care Provider] -
[2019-12-03 23:05] LABS: Absolute Lymphocyte Count 1.82 X10^3/uL (0.83-4.51); Absolute Neutrophil Count 5.3 X10^3/uL (2.0-7.7); Basophil# 0.06 X10^3/uL; Basophil% 0.7 % (0-1); Eosinophil# 0.23 X10^3/uL; Eosinophils% 2.8 % (0-5); Hematocrit 39.9 % (40-54); Hemoglobin 13.4 g/dL (13.0-16.5); Lymphocyte # 1.82 X10^3/ul (4.0); Lymphocyte % 22.1 % (19-41); Mean Corp Hgb Conc 33.6 g/dL (32-36); Mean Corpuscular Hgb 30.3 pg (27.0-32.0); Mean Corpuscular Volume 90.3 fL (80-94); Mean Platelet Vol. 9.6 fl (6.2-12.0); Monocyte# 0.79 X10^3/uL; Monocyte% 9.6 % (0-10); NRBC Flagged by Analyzer 0 % (0-5); Neutrophil # 5.29 X10^3/uL (2.7-7.7); Neutrophil % 64.3 % (47-70); Platelet Count 182 K/mm3 (150-450); RBC Distribution Width CV 12.6 % (11.6-14.6); RBC Distribution Width SD 41.4 fl (35.1-43.9); Red Blood Count 4.42 M/mm3 (4.6-6.2); White Blood Count 8.2 K/mm3 (4.4-11.0)
[2019-12-03 23:16] LABS: Anion Gap 4 (5-15); BUN 22 mg/dL (7-18); BUN/Creat Ratio 19.6 RATIO (10-20); Chloride 109 mmol/L (98-107); Creatinine, Serum 1.12 mg/dL (0.70-1.30); EST Glomerular Filtration Rate 69 mL/min (>60); Est Glom Filt Rate - Afr Amer 83 mL/min (>60); Estimated Creatinine Clearance 61.56 ml/min; Glucose 117 mg/dL (74-106); Potassium 3.9 mmol/L (3.5-5.1); Sodium Level 141 mmol/L (136-145)
[2019-12-03 23:39] LABS: Bacteria 0 SEEN /hpf (None Seen); White Blood Cells 0 SEEN /hpf (0-5)
[2019-12-03 23:42] LABS: Color, Urine Yellow (Yellow); Glucose, Dipstick Normal (Normal); Ketone-Dipstick 5 mg/dl (Negative); Leukocyte Esterase-Dipstick Negative /ul (Negative); Nitrite-Dipstick Negative (Negative); Occult Blood-Urine Negative /ul (Negative); Protein-Dipstick Negative (Negative); Urine Bilirubin Dipstick Negative (Negative); Urine Clarity Clear (Clear); Urine Urobilinogen Normal (Normal)
[2019-12-03 23:47] VITALS: RESP 14
[2019-12-03 23:54] LABS: Amphetamine Urine VISTA NEGATIVE (<1000 ng/mL); Barbiturate Urine VISTA NEGATIVE (< 200 ng/mL); Benzodiazepine Urine VISTA NEGATIVE (< 200 ng/mL); Cocaine Urine VISTA NEGATIVE (< 300 ng/mL); Ecstacy Urine VISTA NEGATIVE (< 500 ng/mL); Methadone Urine VISTA NEGATIVE (< 300 ng/mL); PCP Urine VISTA NEGATIVE (< 25 ng/mL); THC Urine VISTA NEGATIVE (< 50 ng/mL); Vista UDS pH Range 6
[2019-12-03 23:55] LABS: Hyaline Cast 0-5 SEEN /lpf (0-5); Mucous, Urine 3+ /hpf (<or=2+); Red Blood Cells-Urine 0-5 SEEN /hpf (0-5); Squamous Epithelial Cells - UA 0-5 SEEN /hpf (0-5)
[2019-12-04] VITALS (11 sets, daily range): BP systolic 140–155; BP diastolic 68–81; PULSE 75–86; RESP 14–18; O2SAT 95–99
--- NOTE | 2019-12-04 00:47 | ED.RN ---
ATTEMPTED TO FIND TRANSPORTATION [facility] 0030 - 0037 [facility] WE WOULDN[facility]T HAVE ANYONE TILL MORNING [facility] 0040 - 0044 ETA 1 1/2 HOURS
--- NOTE | 2019-12-04 08:01 | NURSING ---
CALLED [facility]. ADRIAN WILL CALL US BACK.
--- NOTE | 2019-12-04 08:03 | NURSING ---
VICTORINO CAMPBELL, CALLED BACK. PATIENT HAS TO GO TO [facility].
[2019-12-04] MEDS: AMOXICILLIN 500 MG CAPSULE PO (10:04)
[2019-12-04] MEDS: Naproxen 500 MG Tablet PO (10:04)
[2019-12-04] MEDS: Pantoprazole Sodium 20 MG Tablet PO (10:04)
--- NOTE | 2019-12-04 10:09 | NURSING ---
KRISTINE, [facility], CALLED. PATIENT ACCEPTED AND THEY ARE WORKING ON HIS TRANSPORTATION
--- NOTE | 2019-12-04 10:32 | ED.RN ---
PT UPDATED ON STATUS. [facility] ACCEPTED PT AND WORKING ON TRANSPORT
[2019-12-04] MEDS: predniSONE 1 MG Tablet 4 MG PO (10:33)
--- NOTE | 2019-12-04 14:54 | NURSING ---
[facility] IS ATTEMPTING TO GET A RIDE FOR THE PATIENT.
--- NOTE | 2019-12-04 15:23 | NURSING ---
TANNA JONAH COMING TO TRANSPORT PATIENT TO [facility]
== END 2019-12-04 16:43 ==
LOC: ED 22:44
PROVIDERS: Emergency Provider Emergency Medicine; Family Provider Family Medicine; PCP Family Medicine
DX: R10.30 Lower abdominal pain, unspecified (principal); R45.851 Suicidal ideations
CPT/HCPCS: 80048; 80307; 80320; 81001; 85025; 99285; A4216; G0480

== ENCOUNTER 2019-12-12 21:16 | Emergency (ER) | payer MEDICARE, SELFPAY ==
[2019-12-12 21:18] VITALS: BP 148/93; PULSE 81; RESP 16; TEMP 36.1; O2SAT 98; BMI 36.4
--- NOTE | 2019-12-12 22:10 | ED.DCSUM_ITS ---
History of Present Illness Chief Complaint: Abd Pain Informant: Patient - Abdominal Pain/Flank Pain Onset: Days - 3 Context: Gradual Onset Timing: Continuous Quality: Burning, Cramping Location: Epigastric - and toward periumbilical area Current Severity: Mild Maximum Severity: Moderate Worsened by: Food - quickly after eating Relieved by: - - dicyclomine helps a little - Nausea/Vomiting/Emesis GI Symptom: Nausea. Negative for: Vomiting Severity: Mild - Diarrhea/Melena/Hematochezia GI Symptom: - - normal BMs, soft, formed; last BM this AM. Negative for: Diarrhea, Melena, Hematochezia Associated Symptoms: Negative for: Dysuria, Hematuria, Urgency Narrative: Patient was here for abdominal pain and seen by myself a week or 2 ago, he states that this is somewhat different than that. He also had a different pain still this past week, that felt more like his Crohn's pain, which was a wrenching pain in his lower abdomen. He was admitted to [facility] in [place] for that and discharged earlier this week about 4 or 5 days ago. He states they mainly treated him with dicyclomine. He is on prednisone daily and he does not think they change that. He states he had no changes in his bowel movements throughout that time they have been fairly normal, he has had no blood or diarrhea. He states that is no different now. He tried Mylanta, Pepto- Bismol, and not get any relief with this pain. Even after taking his PPI that he has been taking every day, 5 minutes later his abdomen feels burning but diffusely. - Past Medical History (1) Crohn's disease Status: Chronic (2) GERD (gastroesophageal reflux disease) Status: Chronic Past Medical History - Allergies and Home Meds Allergies/Adverse Reactions: Allergies No Known Allergies Allergy (Verified 12/12/19 21:17) Primary Care Physician: Cale Raymundo MD [Primary Care Provider] - Surgical History: cholecystectomy Smoking Status: Never smoker Alcohol: None Review of Systems General: Denies: Chills, Fever, Sweats Eyes: Denies: Visual changes - bilaterally, Diplopia ENT: Denies: Bilateral ear pain, Rhinorrhea, Sore throat Cardiovascular: Denies: Chest pain, Palpitations Respiratory: Denies: Dyspnea, Cough, Dyspnea on exertion Gastrointestinal: Reports: Abdominal pain, Nausea - mild. Denies: Vomiting, Diarrhea, Constipation, Melena, Hematochezia Genitourinary: Denies: Dysuria, Hematuria, Frequency Musculoskeletal: Denies: Neck pain, Back pain, Swelling, Extremity Pain Skin: Denies: Rash, Wounds Neurological: Denies: Headache, Weakness, Numbness Physical Exam Vital Signs/Narrative: Vital Signs Temp Pulse Resp BP Pulse Ox 12/12/19 21:18 96.9 F L 81 16 148/93 H 98 Inital Vital Signs reviewed: Yes General: Well nourished, Well developed, Obese - trunkal, No Acute Distress - well-appearing Head: Normocephalic, Atraumatic Eyes: Perrl, EOMI ENT: Moist mucous membranes, No rhinorrhea Neck: Supple, Nontender Cardiovascular: Regular rate, Regular rhythm, No murmurs Respiratory: No distress, CTA bilaterally, Chest nontender Abdomen: Soft, Nondistended, Normal bowel sounds, Tender - mild epigast, mid- abd, LUQ; nonfocal. no lower abd tend or RUQ.. Negative for: Guarding, Rebound tenderness, Pulsatile mass Back: Nontender, Normal Inspection. Negative for: CVA tenderness Extremities: Nontender, No edema Skin: Normal color, No rash Neurological: Alert, Oriented x3, Cranial nerves II-XII grossly intact, Normal Strength, Normal Sensation, Normal Gait Psychological: Normal affect, Normal Mood Diagnostic/Tx/Re-eval Laboratory Tests 12/12/19 12/12/19 Range/Units 22:30 22:30 WBC 8.6 (4.4-11.0) K/mm3 RBC 4.48 L (4.6-6.2) M/mm3 Hgb 14.0 (13.0-16.5) g/dL Hct 41.8 (40-54) % MCV 93.3 (80-94) fL MCH 31.3 (27.0-32.0) pg MCHC 33.5 (32-36) g/dL RDW Std Deviation 43.8 (35.1-43.9) fl RDW Coeff of Sandra 12.8 (11.6-14.6) % Plt Count 196 (150-450) K/mm3 MPV 10.0 (6.2-12.0) fl Immature Gran % (Auto) 0.600 (0.0-0.9) % Neut % (Auto) 60.9 (47-70) % Lymph % (Auto) 25.9 (19-41) % [place] % (Auto) 8.6 (0-10) % Eos % (Auto) 3.3 (0-5) % Baso % (Auto) 0.7 (0-1) % Absolute Neuts (auto) 5.3 (2.0-7.7) X10^3/uL Absolute Lymphs (auto) 2.23 (0.83-4.51) X10^3/uL Nucleated RBC % 0 (0-5) % Sodium 142 (136-145) mmol/L Potassium 4.3 (3.5-5.1) mmol/L Chloride 110 H (98-107) mmol/L Carbon Dioxide 28.0 (21.0-32.0) mmol/L Anion Gap 4 L (5-15) BUN 20 H (7-18) mg/dL Creatinine 1.12 (0.70-1.30) mg/dL Estim Creat Clear Calc 61.56 ml/min Est GFR (MDRD) Af Amer 83 (>60) mL/min Est GFR (MDRD) Non-Af 69 (>60) mL/min BUN/Creatinine Ratio 17.9 (10-20) RATIO Glucose 108 H (74-106) mg/dL Calcium 9.2 (8.5-10.1) mg/dL Total Bilirubin 0.30 (0.20-1.00) mg/dL AST 21 (15-37) U/L ALT 44 (16-61) U/L Alkaline Phosphatase 82 (45-117) U/L Total Protein 7.1 (6.4-8.2) g/dL Albumin 3.9 (3.2-5.0) g/dL Globulin 3.2 (2.2-4.2) g/dL Albumin/Globulin Ratio 1.2 (0.9-2.4) RATIO Lipase 93 (73-393) U/L - Medical Decision Making Labs are normal. He was given a GI cocktail and a small dose of IV Phenergan, his symptoms are resolved afterwards and he feels much better. I do not think he needs another CT scan which did not show anything significant a week or so ago. He agrees with this plan of having him follow-up, he is due to see his [facility] doctor in less than 1 week. I do not think he needs any new prescriptions. ED Disposition - Plan for ED Patient: Disposition: Home or Assisted Living Diagnosis: Epigastric abdominal pain Instructions: GASTRITIS vs. ULCER, DIET, [place] (Adult) Referrals: Cale Raymundo MD [Primary Care Provider] - [facility] appointment (Or your [facility] doctor) Additional Instructions: May try a bland diet to see if that helps with your pain. See attached instructions.
[2019-12-12 22:31] VITALS: BP 103/75; PULSE 63; RESP 17; O2SAT 97
[2019-12-12 22:34] LABS: Absolute Lymphocyte Count 2.23 X10^3/uL (0.83-4.51); Absolute Neutrophil Count 5.3 X10^3/uL (2.0-7.7); Basophil# 0.06 X10^3/uL; Basophil% 0.7 % (0-1); Eosinophil# 0.28 X10^3/uL; Eosinophils% 3.3 % (0-5); Hematocrit 41.8 % (40-54); Lymphocyte # 2.23 X10^3/ul (4.0); Lymphocyte % 25.9 % (19-41); Mean Corp Hgb Conc 33.5 g/dL (32-36); Mean Corpuscular Hgb 31.3 pg (27.0-32.0); Mean Corpuscular Volume 93.3 fL (80-94); Monocyte# 0.74 X10^3/uL; Monocyte% 8.6 % (0-10); NRBC Flagged by Analyzer 0 % (0-5); Neutrophil # 5.25 X10^3/uL (2.7-7.7); Neutrophil % 60.9 % (47-70); Platelet Count 196 K/mm3 (150-450); RBC Distribution Width CV 12.8 % (11.6-14.6); RBC Distribution Width SD 43.8 fl (35.1-43.9); Red Blood Count 4.48 M/mm3 (4.6-6.2); White Blood Count 8.6 K/mm3 (4.4-11.0)
[2019-12-12] MEDS: proMETHazine 25 MG/ML Syringe 6.25 MG IV (22:47)
[2019-12-12] MEDS: Mag Hydrox/Al Hydrox/Simeth 30 ML UDC PO (22:49)
[2019-12-12 22:54] LABS: ALB/GLOB Ratio 1.2 RATIO (0.9-2.4); AST(SGOT) 21 U/L (15-37); Alanine Aminotransfer ALT/SGPT 44 U/L (16-61); Albumin, Serum 3.9 g/dL (3.2-5.0); Alkaline Phosphatase 82 U/L (45-117); Anion Gap 4 (5-15); BUN 20 mg/dL (7-18); BUN/Creat Ratio 17.9 RATIO (10-20); Calcium,Total 9.2 mg/dL (8.5-10.1); Chloride 110 mmol/L (98-107); Creatinine, Serum 1.12 mg/dL (0.70-1.30); EST Glomerular Filtration Rate 69 mL/min (>60); Est Glom Filt Rate - Afr Amer 83 mL/min (>60); Estimated Creatinine Clearance 61.56 ml/min; Globulin 3.2 g/dL (2.2-4.2); Glucose 108 mg/dL (74-106); Lipase 93 U/L (73-393); Potassium 4.3 mmol/L (3.5-5.1); Protein, Total 7.1 g/dL (6.4-8.2); Sodium Level 142 mmol/L (136-145)
[2019-12-13 00:01] VITALS: BP 113/79; PULSE 66; RESP 16
== END 2019-12-13 00:03 | disposition home or self-care (01) ==
PROVIDERS: Emergency Provider Emergency Medicine; PCP Family Medicine
DX: R10.13 Epigastric pain (principal); K50.90 Crohn's disease, unspecified, without complications; K21.9 Gastro-esophageal reflux disease without esophagitis; Z90.49 Acquired absence of other specified parts of digestive tract
CPT/HCPCS: 80053; 83690; 85025; 96374; 99284; A4216

== ENCOUNTER 2019-12-23 21:46 | Emergency (ER) | payer MEDICARE, SELFPAY ==
[2019-12-23 21:48] VITALS: BP 158/65; PULSE 99; RESP 18; TEMP 36.6; O2SAT 97; BMI 35.3
--- NOTE | 2019-12-23 22:13 | ED.RN ---
PT STATED THAT HIS PAIN HAD LET UP AND THAT HE WAS LEAVING.
== END 2019-12-23 22:13 | disposition home or self-care (01) ==
LOC: ED 22:16
PROVIDERS: Emergency Provider Emergency Medicine; PCP Family Medicine
DX: R69 Illness, unspecified (principal); Z53.21 Procedure and treatment not carried out due to patient leaving prior to being seen by health care provider
CPT/HCPCS: 99281

== ENCOUNTER 2019-12-24 07:55 | Emergency (ER) | payer MEDICARE, SELFPAY ==
[2019-12-23 21:48] VITALS: BMI 35.3
[2019-12-24 07:57] VITALS: BP 160/90; PULSE 79; RESP 25; TEMP 36.6; O2SAT 99; BMI 34.4
--- NOTE | 2019-12-24 08:18 | EKG12_ITS ---
Test Reason : CP Blood Pressure : / mmHG Vent. Rate : 091 BPM Atrial Rate : 091 BPM P-R Int : 136 ms QRS Dur : 086 ms QT Int : 358 ms P-R-T Axes : 065 049 043 degrees QTc Int : 440 ms Sinus rhythm with Premature supraventricular complexes Nonspecific ST abnormality Abnormal ECG Confirmed by NASEEM LOVELL, ALISIA ([id number]), graphics editor ALYSSA LONG ([id number]) on 12/29/2019 7:53:29 AM Referred By: KELSI Confirmed By:ALISIA GUSMAN MD
[2019-12-24 08:27] LABS: Absolute Lymphocyte Count 1.35 X10^3/uL (0.83-4.51); Absolute Neutrophil Count 4.6 X10^3/uL (2.0-7.7); Basophil# 0.06 X10^3/uL; Basophil% 0.9 % (0-1); Eosinophil# 0.34 X10^3/uL; Eosinophils% 4.9 % (0-5); Hematocrit 39.6 % (40-54); Hemoglobin 13.7 g/dL (13.0-16.5); Lymphocyte # 1.35 X10^3/ul (4.0); Lymphocyte % 19.3 % (19-41); Mean Corp Hgb Conc 34.6 g/dL (32-36); Mean Corpuscular Volume 89.6 fL (80-94); Mean Platelet Vol. 10.1 fl (6.2-12.0); Monocyte# 0.66 X10^3/uL; Monocyte% 9.4 % (0-10); NRBC Flagged by Analyzer 0 % (0-5); Neutrophil # 4.56 X10^3/uL (2.7-7.7); Neutrophil % 65.2 % (47-70); Platelet Count 179 K/mm3 (150-450); RBC Distribution Width CV 12.5 % (11.6-14.6); RBC Distribution Width SD 40.8 fl (35.1-43.9); Red Blood Count 4.42 M/mm3 (4.6-6.2)
--- NOTE | 2019-12-24 08:27 | ED.VIS.GEN ---
History of Present Illness Chief Complaint: Chest Pain Informant: Patient Onset: Weeks Timing: Intermittent Narrative: Patient is a 74-year-old male with history of Crohn's disease presenting for recurrent epigastric abdominal pain. Patient initially triaged as chest pain however he points to his epigastric region as the area of his pain. He states that is part of his chest. This is his fifth visit for the same abdominal pain this month. In addition patient was just discharged from the [facility] 3 days ago where he was evaluated for the pain. At that time he had a colonoscopy and an EGD. No source of his pain was because found. Patient came to our ER last night but left before being seen because he had to wait 20 minutes in the waiting room. He then went to [facility] where he was given a shot of pain meds and sent home. He did not have any blood work at that time. Patient states he continues to have intermittent spasms of epigastric pain. He states they are excruciating and sharp. They seem be brought on whenever he eats. He had another spasm this morning which is what brought him back to the emergency room. He is tried taking Bentyl and constipation medicine with no improvement of his symptoms. Of note, on 1 of his visits on 12/03/2019, patient says that he was suicidal from the pain and was actually transferred to [facility] for psychiatric evaluation as well. Patient denies any change in the characteristics of his pain. He states he is on chronic prednisone therapy because of his Crohn's, 4 mg a day. He denies any shortness of breath, leg swelling or difficulty breathing. He denies any urinary symptoms. He states his bowel movements have been normal especially since his colonoscopy. He did have some polyps removed and biopsies taken but he does not know from where. Past Medical History - Allergies and Home Meds Allergies/Adverse Reactions: Allergies No Known Allergies Allergy (Verified 12/24/19 08:00) Primary Care Physician: Cale Raymundo MD [Primary Care Provider] - Past Medical History: - - Crohn's disease, asthma Surgical History: cholecystectomy Smoking Status: Unknown if ever smoked Review of Systems General: Denies: Chills, Fever, Sweats Eyes: Denies: Visual changes - bilaterally, Diplopia ENT: Denies: Rhinorrhea, Sore throat Cardiovascular: Reports: Chest pain. Denies: Palpitations Respiratory: Denies: Dyspnea, Cough, Dyspnea on exertion Gastrointestinal: Reports: Abdominal pain, Nausea. Denies: Vomiting, Diarrhea, Melena, Hematochezia Genitourinary: Denies: Dysuria, Hematuria, Frequency Musculoskeletal: Denies: Back pain, Extremity Pain Skin: Denies: Rash, Wounds Neurological: Denies: Headache, Weakness, Numbness Physical Exam Vital Signs/Narrative: Vital Signs Temp Pulse Resp BP Pulse Ox 12/24/19 07:57 97.9 F 79 25 H 160/90 H 99 Inital Vital Signs reviewed: Yes General: Well nourished, Well developed, No Acute Distress Head: Normocephalic, Atraumatic Eyes: Perrl, EOMI ENT: No rhinorrhea, Dry mucous membranes Neck: Supple, Nontender Cardiovascular: Regular rate, Regular rhythm, No murmurs Respiratory: No distress, CTA bilaterally, Chest nontender Abdomen: Soft, Nondistended, Normal bowel sounds, Tender - Epigastric region, significant tenderness with even light palpation. Negative for: Rebound tenderness Back: Nontender, Normal Inspection Extremities: Nontender, No edema Skin: Normal color, No rash Neurological: Alert, Oriented x3, Cranial nerves II-XII grossly intact, Normal Strength, Normal Sensation Psychological: Normal affect, Normal Mood, - - anxious Diagnostic/Tx/Re-eval Chest X-Ray - ED: 2 View, Read by ED Physician, Read by Radiologist, No Acute Disease Clinical Impression(s) from Imaging Studies Chest X-Ray 12/24/19 08:45 IMPRESSION: Hyperinflation. The lungs are clear. Electronically Signed: Abhishek Allan, at 9:00 EST , Service support , Laboratory Data 12/24/19 12/24/19 12/24/19 08:15 08:15 08:20 WBC 7.0 RBC 4.42 L Hgb 13.7 Hct 39.6 L MCV 89.6 MCH 31.0 MCHC 34.6 RDW Std Deviation 40.8 RDW Coeff of Sandra 12.5 Plt Count 179 MPV 10.1 Immature Gran % (Auto) 0.300 Neut % (Auto) 65.2 Lymph % (Auto) 19.3 [place] % (Auto) 9.4 Eos % (Auto) 4.9 Baso % (Auto) 0.9 Absolute Neuts (auto) 4.6 Absolute Lymphs (auto) 1.35 Nucleated RBC % 0 Sodium 142 Potassium 3.7 Chloride 113 H Carbon Dioxide 24.0 Anion Gap 5 BUN 15 Creatinine 1.26 Estim Creat Clear Calc 54.72 Est GFR (MDRD) Af Amer 72 Est GFR (MDRD) Non-Af 60 BUN/Creatinine Ratio 11.9 Glucose 104 Lactic Acid 1.4 Calcium 9.1 Total Bilirubin 0.60 AST 26 ALT 51 Alkaline Phosphatase 88 Troponin I < 0.015 Total Protein 7.0 Albumin 3.7 Globulin 3.3 Albumin/Globulin Ratio 1.1 - Rhythm Strip Rhythm Strip: Sinus Rhythm Rate: 91 Ectopy: None - EKG Initial EKG Interpretation: Sinus Rhythm, - - Normal sinus rhythm at a rate of 91 Normal intervals Normal axis Nonspecific T wave changes No change prior to prior EKG on 11/30/2019 - Medical Decision Making Is evaluated for recurrent episodes abdominal pain. He describes them as spasms. He appears nontoxic in no acute distress however he is anxious about his pain. He is initially treated with Pepcid and Zofran. On my reevaluation he states he is feeling better. Patient recently had a negative CT abdomen and pelvis as well as a recent colonoscopy and EGD. He has had a very thorough GI work-up for this exact same abdominal pain. I do not think repeat imaging is indicated. Chest x-ray is obtained to look for free air under the diaphragm as he did have a recent colonoscopy/EGD. This is not show any acute process. EKG and troponin are normal. EKG was obtained per protocol because patient is she states he had a chest pain. Patient has a follow-up appointment with his GI doctor in 2 weeks. He is instructed to follow-up with his PCP in the next few days. Patient goes on to comment that his pain seems to be better when someone is in the room and worse when he is alone. I do wonder if there is a psychiatric component to his pain. He will be started on Sucralfate in case there is a component of gastritis or ulcer that is causing his pain. Lactate is normal. I do not suspect mesenteric ischemia or other emergent causes of his abdominal pain at this time. I think he is stable for outpatient follow-up. Patient is counseled on signs and symptoms requiring return to the emergency room. Patient verbalizes agreement and understand this plan. Patient discharged home in stable and improved condition. ED Disposition - Plan for ED Patient: Disposition: Home or Assisted Living Diagnosis: Epigastric abdominal pain of unknown etiology Instructions: EPIGASTRIC PAIN (Uncertain cause) Prescriptions: Sucralfate [Carafate] 1 gm PO 4X/DAY #28 tab Prescription Printed Referrals: Cale Raymundo MD [Primary Care Provider] - Additional Instructions: Your work-up was normal today. As you recently had a CT of your abdomen as well as scoping I do not think a repeat CT is needed. The exact cause of your pain is not clear. It is very important that you continue to follow-up with your GI specialist as well as your primary care doctor. Please call your primary care doctor today to arrange follow-up in the next 2 days. You will be started on another medication to hopefully help with your pain. Please take it as prescribed. Continue take all other medications prescribed.
[2019-12-24] MEDS: Ondansetron 4 MG/2 ML Vial IV (08:34)
[2019-12-24] MEDS: 0.9% Normal Saline 1,000 ML 999 ML IV (08:34)
--- NOTE | 2019-12-24 08:45 | RAD_ITS ---
STUDY: X-RAY CHEST REASON FOR EXAM: Male, 74 years old. CHEST PAIN STERNAL WITH RADIATION TO EPIGASTRIC. DESCRIBED SPASM -- HX ASTHMA TECHNIQUE: PA and lateral views of the chest. COMPARISON: Comparison is made with prior study dated November 30, 2019. FINDINGS: EKG lead projects are seen. Once again, surgical clips are seen in the right axillary region. Hyperinflation. The lungs are clear. There is no demonstrated pleural abnormality. Normal size heart. Normal mediastinum and miguel. Normal visualized pulmonary arteries. There is atherosclerotic calcification of the aortic arch with tortuosity. Normal visualized thoracic spine. Normal visualized ribs, clavicles, and shoulders. There is no demonstrated abnormality of the visualized soft tissue structures of the upper abdomen. RAD/Chest PA and Lateral IMPRESSION: Hyperinflation. The lungs are clear. Electronically Signed: Abhishek Lemus, at 9:00 EST , Service support ,
[2019-12-24 08:57] LABS: ALB/GLOB Ratio 1.1 RATIO (0.9-2.4); AST(SGOT) 26 U/L (15-37); Alanine Aminotransfer ALT/SGPT 51 U/L (16-61); Albumin, Serum 3.7 g/dL (3.2-5.0); Alkaline Phosphatase 88 U/L (45-117); Anion Gap 5 (5-15); BUN 15 mg/dL (7-18); BUN/Creat Ratio 11.9 RATIO (10-20); Calcium,Total 9.1 mg/dL (8.5-10.1); Chloride 113 mmol/L (98-107); Creatinine, Serum 1.26 mg/dL (0.70-1.30); EST Glomerular Filtration Rate 60 mL/min (>60); Est Glom Filt Rate - Afr Amer 72 mL/min (>60); Estimated Creatinine Clearance 54.72 ml/min; Globulin 3.3 g/dL (2.2-4.2); Glucose 104 mg/dL (74-106); Potassium 3.7 mmol/L (3.5-5.1); Sodium Level 142 mmol/L (136-145)
[2019-12-24 08:58] LABS: Lactic Acid 1.4 mmol/L (0.4-1.9)
[2019-12-24] MEDS: Famotidine 200 MG/20 ML MDV 20 MG in 0.9% Normal Saline (Pres. free 8 ML 300 MG IV (09:01)
[2019-12-24 09:06] VITALS: BP 133/68; PULSE 62; RESP 16; O2SAT 97
[2019-12-24 10:45] VITALS: BP 126/78; PULSE 62; RESP 18; TEMP 36.6
== END 2019-12-24 10:46 | disposition home or self-care (01) ==
PROVIDERS: Emergency Provider Emergency Medicine; PCP Family Medicine
DX: R10.13 Epigastric pain (principal); K50.90 Crohn's disease, unspecified, without complications; J45.909 Unspecified asthma, uncomplicated; Z79.52 Long term (current) use of systemic steroids
CPT/HCPCS: 71046; 80053; 83605; 84484; 85025; 93005; 96361; 96374; 96375; 99284; J7030; A4216; J2405; J3490

== ENCOUNTER 2019-12-25 16:55 | Emergency (ER) | payer MEDICARE, SELFPAY ==
[2019-12-24 07:57] VITALS: BMI 34.4
[2019-12-25 16:56] VITALS: BP 143/70; PULSE 63; RESP 16; TEMP 36.5; O2SAT 99; BMI 34.9
--- NOTE | 2019-12-25 17:12 | ED.VIS.GEN ---
History of Present Illness Chief Complaint: Abd Pain Informant: Patient Onset: Weeks Context: Sudden Onset Timing: Intermittent Quality: Colicky pain Location: Neurolysed and left lower quadrant most severe Current Severity: Mild Maximum Severity: Severe Worsened by: Nothing Relieved by: Nothing Associated Symptoms: Nothing Narrative: Patient is a 74-year-old male who presents with abdominal pain. He was seen by Dr. Andujar. He was offered pain medicine. He is presently on dicyclomine. He went to his PCP. His PCP sent him to the emergency room. This is his eighth visit this month alone. He had a 3-day stay at the [facility]. He underwent colonoscopy with polypectomy and biopsies. He has had multiple CAT scans. Patient states no one is told him why he is having abdominal pain. He denies fever, chills night sweats. He denies weight gain or weight loss. He does report nausea with severe pain. Had no vomiting or diarrhea. Denies constipation. Nu[place] black or maroon stool. He does report flatus. He is status post cholecystectomy. He denies cardiac or respiratory symptoms. Prior similar symptoms: Yes Recent Illness/Hospitalization: Yes - Past Medical History (1) Bronchial asthma Status: Chronic (2) Crohn's disease Status: Chronic (3) GERD (gastroesophageal reflux disease) Status: Chronic Past Medical History - Allergies and Home Meds Allergies/Adverse Reactions: Allergies No Known Allergies Allergy (Verified 12/24/19 08:00) Primary Care Physician: Raheel Whiteside Chi, MD [Primary Care Provider] - Prior records reviewed: Yes Surgical History: cholecystectomy, - - Colonoscopy Lives: Alone Smoking Status: Former smoker Alcohol: None Drugs: None Review of Systems General: Denies: Chills, Fever, Sweats Eyes: Denies: Visual changes - bilaterally, Blurred Vision - bilaterally, Diplopia ENT: Denies: Rhinorrhea, Sore throat Cardiovascular: Denies: Chest pain, Palpitations Respiratory: Denies: Dyspnea, Cough, Dyspnea on exertion Gastrointestinal: Reports: Abdominal pain, Nausea. Denies: Vomiting, Diarrhea, Constipation, Melena, Hematochezia Genitourinary: Denies: Dysuria, Hematuria, Frequency Musculoskeletal: Denies: Myalgias, Arthralgias, Neck pain, Back pain, Swelling, Extremity Pain Skin: Denies: Rash, Wounds Neurological: Denies: Headache, Weakness, Numbness Psych: Denies: Depression, Anxiety Hematologic: Denies: Easy bruising Physical Exam Vital Signs/Narrative: Vital Signs Temp Pulse Resp BP Pulse Ox 12/25/19 16:56 97.7 F L 63 16 143/70 H 99 Inital Vital Signs reviewed: Yes General: Well nourished, Well developed, No Acute Distress Head: Normocephalic, Atraumatic Eyes: Perrl, EOMI ENT: Moist mucous membranes, No rhinorrhea Neck: Supple, Nontender Cardiovascular: Regular rate, Regular rhythm, No murmurs Respiratory: No distress, CTA bilaterally, Chest nontender Abdomen: Soft, Nontender, Normal bowel sounds. Negative for: Nondistended, Hepatomegaly, Splenomegaly Back: Nontender, Normal Inspection Extremities: Nontender, No edema Skin: Normal color, No rash Neurological: Alert, Oriented x3, Cranial nerves II-XII grossly intact, Normal Strength, Normal Sensation Psychological: Normal affect, Normal Mood Diagnostic/Tx/Re-eval Chest X-Ray - ED: Read by ED Physician, - - Interpretation under diagnostic testing. 12/25/19 17:36 Acute Abdomen Inc Chest [RAD] Stat Laboratory Results 12/25/19 12/25/19 17:15 17:15 WBC 7.8 RBC 4.58 L Hgb 13.7 Hct 41.2 MCV 90.0 MCH 29.9 MCHC 33.3 RDW Std Deviation 41.2 RDW Coeff of Sandra 12.7 Plt Count 180 MPV 10.2 Immature Gran % (Auto) 0.400 Neut % (Auto) 72.4 H Lymph % (Auto) 17.9 L [place] % (Auto) 6.7 Eos % (Auto) 1.8 Baso % (Auto) 0.8 Absolute Neuts (auto) 5.7 Absolute Lymphs (auto) 1.40 Nucleated RBC % 0 Sodium 143 Potassium 3.9 Chloride 114 H Carbon Dioxide 20.0 L Anion Gap 9 BUN 24 H Creatinine 1.18 Estim Creat Clear Calc 58.43 Est GFR (MDRD) Af Amer 78 Est GFR (MDRD) Non-Af 64 BUN/Creatinine Ratio 20.3 H Glucose 98 Calcium 9.4 CBC and basic metabolic panel are unremarkable and essentially unchanged. Three-view x-ray of the abdomen was interpreted by me as unremarkable. There is massive gas pattern. There are surgical clips noted secondary to cholecystectomy. There is no calcification aorta or enlargement the aorta. The osseous structures appear normal. The bladder is full. - Medical Decision Making Since patient has history of Crohn's will obtain baseline blood work. Since he has had multiple CAT scans recent colonoscopy and no etiology is known patient was informed that 50% at times when the patient comes in with abdominal pain the cause may not be known. He is upset because a physician does not examine him when he has pain. He is presently not having severe pain. His work-up was unremarkable. Prior records were reviewed. Since he has had extensive work-up with no etiology he was discharged to follow-up with his primary care physician. ED Disposition - Plan for ED Patient: Disposition: Home or Assisted Living Diagnosis: Abdominal pain of unknown etiology Instructions: ABDOMINAL PAIN, Unkown Cause, (Male) Referrals: Raheel Whiteside Chi, MD [Primary Care Provider] - As Needed
[2019-12-25 17:29] LABS: Absolute Neutrophil Count 5.7 X10^3/uL (2.0-7.7); Basophil# 0.06 X10^3/uL; Basophil% 0.8 % (0-1); Eosinophil# 0.14 X10^3/uL; Eosinophils% 1.8 % (0-5); Hematocrit 41.2 % (40-54); Hemoglobin 13.7 g/dL (13.0-16.5); Lymphocyte % 17.9 % (19-41); Mean Corp Hgb Conc 33.3 g/dL (32-36); Mean Corpuscular Hgb 29.9 pg (27.0-32.0); Mean Platelet Vol. 10.2 fl (6.2-12.0); Monocyte# 0.52 X10^3/uL; Monocyte% 6.7 % (0-10); NRBC Flagged by Analyzer 0 % (0-5); Neutrophil # 5.66 X10^3/uL (2.7-7.7); Neutrophil % 72.4 % (47-70); Platelet Count 180 K/mm3 (150-450); RBC Distribution Width CV 12.7 % (11.6-14.6); RBC Distribution Width SD 41.2 fl (35.1-43.9); Red Blood Count 4.58 M/mm3 (4.6-6.2); White Blood Count 7.8 K/mm3 (4.4-11.0)
--- NOTE | 2019-12-25 17:36 | RAD_ITS ---
STUDY: X-RAY - ACUTE ABDOMINAL SERIES REASON FOR EXAM: Male, 74 years old. Flareup of left lower quadrant pain. Pain every day recently worsening. TECHNIQUE: Single view of the chest. Supine, and erect view(s) of the abdomen were obtained. COMPARISON: Chest, December 24, 2019. CT of the abdomen and pelvis, December 02, 2019 FINDINGS: The lungs are clear and expanded. Normal size heart. Normal mediastinum and miguel. Normal visualized pulmonary arteries. There is atherosclerotic calcification of the aortic arch with tortuosity. There is a non-specific bowel gas pattern. . Air and feces are seen throughout nondistended colon. There is no small bowel dilatation or evidence of obstruction. No free air. The soft tissue structures of the abdomen and pelvis are unremarkable. Surgical clips are seen in the right upper quadrant. There are diffuse degenerative changes of the visualized lumbar spine. RAD/Acute Abdomen Inc Chest IMPRESSION: 1. No acute cardiopulmonary disease. 2. No evidence of acute intra-abdominal process. Electronically Signed: Tyshawn Silva DO at 17:56 EST Tel [phone], Service support ,
[2019-12-25 17:45] LABS: Anion Gap 9 (5-15); BUN 24 mg/dL (7-18); BUN/Creat Ratio 20.3 RATIO (10-20); Calcium,Total 9.4 mg/dL (8.5-10.1); Chloride 114 mmol/L (98-107); Creatinine, Serum 1.18 mg/dL (0.70-1.30); EST Glomerular Filtration Rate 64 mL/min (>60); Est Glom Filt Rate - Afr Amer 78 mL/min (>60); Estimated Creatinine Clearance 58.43 ml/min; Glucose 98 mg/dL (74-106); Potassium 3.9 mmol/L (3.5-5.1); Sodium Level 143 mmol/L (136-145)
[2019-12-25 18:06] VITALS: BP 148/80; PULSE 74; RESP 16
--- NOTE | 2019-12-25 18:06 | ED.RN ---
IV DC'ED, CATHETER INTACT, SMALL GAUZE DRESSING PLACED. WHEN DISCHARGING PATIENT HE STATES I FEEL SORRY FOR THIS HOSPITAL, A RADHA COMES IN HERE IN SO MUCH PAIN AND YOU GUYS SAY THERE AIN'T NOTHING YOU CAN DO! THIS RN ASKED THE PAIN HIS PAIN LEVEL 0/10, TO WHICH HE STATES ZERO. THIS RN TOLD PATIENT TO FOLLOW UP WITH HIS PRIMARY CARE RN AND HIS CATEGORY DIRECTOR. PATIENT AMBULATES OUT OF ROOM WITHOUT DIFFICULTY.
== END 2019-12-25 18:09 | disposition home or self-care (01) ==
PROVIDERS: Emergency Provider Emergency Medicine; PCP Family Medicine Geriatric Medicine
DX: R10.32 Left lower quadrant pain (principal); K50.90 Crohn's disease, unspecified, without complications; K21.9 Gastro-esophageal reflux disease without esophagitis; J45.909 Unspecified asthma, uncomplicated; Z90.49 Acquired absence of other specified parts of digestive tract; Z87.891 Personal history of nicotine dependence
CPT/HCPCS: 74022; 80048; 85025; 99285; J7030

== ENCOUNTER → 2019-12-28 12:08 | Outpatient (CLI) | payer MEDICARE, SELFPAY ==
[2019-12-25 16:56] VITALS: BMI 34.9
== END ==
PROVIDERS: PCP Family Medicine Geriatric Medicine; Referring Provider Internal Medicine Gastroenterology; Visit Provider Internal Medicine Gastroenterology
DX: K50.10 Crohn's disease of large intestine without complications (principal)

== ENCOUNTER → 2020-06-14 09:53 | Outpatient (CLI) | payer MEDICARE, SELFPAY ==
[2020-06-14 12:43] LABS: Anion Gap 3 (5-15); BUN 24 mg/dL (7-18); BUN/Creat Ratio 27.2 RATIO (10-20); Calcium,Total 8.3 mg/dL (8.5-10.1); Chloride 107 mmol/L (98-107); Creatinine, Serum 0.88 mg/dL (0.70-1.30); EST Glomerular Filtration Rate 90 mL/min (>60); Est Glom Filt Rate - Afr Amer 109 mL/min (>60); Glucose 83 mg/dL (74-106); PSA,Total - Annual Screen 2.78 ng/mL (0.00-4.00); Potassium 4.3 mmol/L (3.5-5.1); Sodium Level 141 mmol/L (136-145)
== END ==
PROVIDERS: PCP Family Medicine; Referring Provider Family Medicine
DX: N40.1 Benign prostatic hyperplasia with lower urinary tract symptoms (principal); R33.8 Other retention of urine; R60.0 Localized edema
CPT/HCPCS: 36415; 80048; 84153; G0103

== ENCOUNTER → 2020-06-27 09:12 | Outpatient (CLI) | payer MEDICARE, SELFPAY ==
[2020-06-27 09:48] LABS: Absolute Lymphocyte Count 1.54 X10^3/uL (0.83-4.51); Absolute Neutrophil Count 6.5 X10^3/uL (2.0-7.7); Basophil# 0.05 X10^3/uL; Basophil% 0.6 % (0-1); Eosinophil# 0.07 X10^3/uL; Eosinophils% 0.8 % (0-5); Hematocrit 41.5 % (40-54); Hemoglobin 13.5 g/dL (13.0-16.5); Lymphocyte # 1.54 X10^3/ul (4.0); Mean Corp Hgb Conc 32.5 g/dL (32-36); Mean Corpuscular Hgb 32.2 pg (27.0-32.0); Mean Platelet Vol. 9.7 fl (6.2-12.0); Monocyte# 0.62 X10^3/uL; Monocyte% 6.8 % (0-10); NRBC Flagged by Analyzer 0 % (0-5); Neutrophil # 6.45 X10^3/uL (2.7-7.7); Neutrophil % 71.1 % (47-70); Platelet Count 124 K/mm3 (150-450); RBC Distribution Width CV 13.6 % (11.6-14.6); RBC Distribution Width SD 49.5 fl (35.1-43.9); Red Blood Count 4.19 M/mm3 (4.6-6.2); White Blood Count 9.1 K/mm3 (4.4-11.0)
[2020-06-27 10:41] LABS: Anion Gap 5 (5-15); BUN 21 mg/dL (7-18); BUN/Creat Ratio 20.8 RATIO (10-20); Calcium,Total 8.7 mg/dL (8.5-10.1); Chloride 107 mmol/L (98-107); Creatinine, Serum 1.01 mg/dL (0.70-1.30); EST Glomerular Filtration Rate 77 mL/min (>60); Est Glom Filt Rate - Afr Amer 93 mL/min (>60); Glucose 153 mg/dL (74-106); Sodium Level 141 mmol/L (136-145)
== END ==
PROVIDERS: PCP Family Medicine; Referring Provider Podiatrist Foot & Ankle Surgery; Visit Provider Podiatrist Foot & Ankle Surgery
DX: R60.9 Edema, unspecified (principal)
CPT/HCPCS: 36415; 80048; 85025

== ENCOUNTER → 2020-07-11 | Outpatient (CLI) | payer MEDICARE, SELFPAY ==
--- NOTE | 2020-07-11 14:42 | VDLE_ITS ---
Reason For Study: Swelling RIGHT LEFT CFV is compressible, spontaneous, phasic, GSV is normal. competent and demonstrates normal CFV is compressible, spontaneous, phasic, augmentation. competent, and demonstrates normal Procedure augmentation. Exam performed in department. FV is compressible, spontaneous, phasic, Pt sent to pharmacy for Eliquis perscription. competent and demonstrates normal A preliminary report was called and/or faxed augmentation. to Dr. King. POP V is compressible, spontaneous, phasic, competent and demonstrates normal augmentation. T/P Trunk is compressible. PTV is compressible. LT PerV is compressible. Lt GastrocV is dilated and non compressible consistent with acute DVT. Interpretation Summary Acute deep vein thrombosis is noted in the left gastrocnemius vein. The remainder of the left lower extremity deep venous system is patent and compressible. Valvular competence appears intact within the proximal deep venous system on the left . The left great saphenous vein appears patent and compressible segmentally. Ordering Physician: Cale King Referring Physician: Cale King Performed By: Marissa Joshi, JEFFY, RVT
== END | disposition home or self-care (01) ==
LOC: CVS 14:41
PROVIDERS: PCP Family Medicine; Referring Provider Family Medicine; Visit Provider Family Medicine
DX: M79.89 Other specified soft tissue disorders (principal); D69.6 Thrombocytopenia, unspecified
CPT/HCPCS: 36415; 80053; 85025; 93971

== ENCOUNTER → 2020-07-11 | Outpatient (CLI) | payer MEDICARE, SELFPAY ==
[2020-07-11 15:33] LABS: Absolute Lymphocyte Count 1.09 X10^3/uL (0.83-4.51); Absolute Neutrophil Count 10.7 X10^3/uL (2.0-7.7); Basophil# 0.08 X10^3/uL; Basophil% 0.6 % (0-1); Eosinophil# 0.02 X10^3/uL; Eosinophils% 0.2 % (0-5); Hemoglobin 14.2 g/dL (13.0-16.5); Lymphocyte # 1.09 X10^3/ul (4.0); Lymphocyte % 8.3 % (19-41); Mean Corp Hgb Conc 31.6 g/dL (32-36); Mean Corpuscular Hgb 31.4 pg (27.0-32.0); Mean Corpuscular Volume 99.6 fL (80-94); Mean Platelet Vol. 9.7 fl (6.2-12.0); Monocyte# 0.88 X10^3/uL; Monocyte% 6.7 % (0-10); NRBC Flagged by Analyzer 0 % (0-5); Neutrophil # 10.65 X10^3/uL (2.7-7.7); Neutrophil % 80.7 % (47-70); Platelet Count 189 K/mm3 (150-450); RBC Distribution Width CV 13.4 % (11.6-14.6); RBC Distribution Width SD 49.1 fl (35.1-43.9); Red Blood Count 4.52 M/mm3 (4.6-6.2); White Blood Count 13.2 K/mm3 (4.4-11.0)
[2020-07-11 16:36] LABS: AST(SGOT) 25 U/L (15-37); Alanine Aminotransfer ALT/SGPT 97 U/L (16-61); Albumin, Serum 3.6 g/dL (3.2-5.0); Alkaline Phosphatase 86 U/L (45-117); Anion Gap 7 (5-15); BUN 19 mg/dL (7-18); BUN/Creat Ratio 19.2 RATIO (10-20); Calcium,Total 8.8 mg/dL (8.5-10.1); Chloride 105 mmol/L (98-107); Creatinine, Serum 0.99 mg/dL (0.70-1.30); EST Glomerular Filtration Rate 79 mL/min (>60); Est Glom Filt Rate - Afr Amer 95 mL/min (>60); Globulin 3.7 g/dL (2.2-4.2); Glucose 115 mg/dL (74-106); Potassium 4.2 mmol/L (3.5-5.1); Protein, Total 7.3 g/dL (6.4-8.2); Sodium Level 141 mmol/L (136-145)
== END | disposition home or self-care (01) ==
LOC: MFPLAB 14:17
PROVIDERS: PCP Family Medicine; Referring Provider Family Medicine; Visit Provider Family Medicine
DX: D69.6 Thrombocytopenia, unspecified (principal)
CPT/HCPCS: 36415; 80053; 85025

== ENCOUNTER → 2020-10-28 12:46 | Outpatient (CLI) | payer MEDICARE, SELFPAY ==
--- NOTE | 2020-10-28 12:48 | VDLE_ITS ---
Reason For Study: DVT RIGHT LEFT GSV is normal. GSV is normal. CFV is compressible, spontaneous, phasic, CFV is compressible, spontaneous, phasic, competent and demonstrates normal competent, and demonstrates normal augmentation. augmentation. FV is compressible, spontaneous, phasic, FV is compressible, spontaneous, phasic, competent and demonstrates normal competent and demonstrates normal augmentation. augmentation. POP V is compressible, spontaneous, phasic, POP V is compressible, spontaneous, phasic, competent and demonstrates normal competent and demonstrates normal augmentation. augmentation. T/P Trunk is compressible. T/P Trunk is compressible. PTV is compressible. PTV is compressible. RT PerV is compressible. LT PerV is compressible. Procedure This is a venous duplex using B-mode, color flow and spectral Doppler. Exam performed in department. Compared to 07/11/2020. A preliminary report was called and/or faxed to Christine. Interpretation Summary Deep veins of the lower extremities are bilaterally patent and compressible segmentally. There is no evidence of deep vein thrombosis on either side. Valvular competence appears intact within the proximal deep venous systems bilaterally. The great saphenous veins appear bilaterally patent and compressible segmentally. Ordering Physician: Cale King Referring Physician: Cale King Performed By: Chantelle Davis RVT
== END ==
PROVIDERS: PCP Family Medicine; Referring Provider Family Medicine; Visit Provider Family Medicine
DX: I82.409 Acute embolism and thrombosis of unspecified deep veins of unspecified lower extremity (principal); M79.662 Pain in left lower leg; M79.661 Pain in right lower leg
CPT/HCPCS: 93970

== ENCOUNTER → 2020-11-11 14:43 | Outpatient (CLI) | payer MEDICARE, SELFPAY ==
--- NOTE | 2020-11-11 14:46 | RAD_ITS ---
STUDY: X-RAY - ABDOMEN/PELVIS REASON FOR EXAM: Male, 75 years old. left lower quadrant pain, hx of crohn''s disease. TECHNIQUE: 2 COMPARISON: 25 December 2019 FINDINGS: Normal visualized lung bases. There is cholecystectomy. There is an unremarkable bowel gas pattern. There is no demonstrated free abdominal air. The visualized liver, spleen and kidneys are grossly normal in size and morphology. Normal soft tissue structures. Normal visualized osseous structures. RAD/Abd Inc Decub and/or Erect IMPRESSION: Normal x-ray examination of the abdomen and pelvis. Electronically Signed: Richard Orellana, at 16:48 EST Tel , Service support ,
== END ==
PROVIDERS: PCP Family Medicine; Referring Provider Family Medicine; Visit Provider Family Medicine
DX: R10.32 Left lower quadrant pain (principal)
CPT/HCPCS: 74019

== ENCOUNTER → 2021-02-03 14:14 | Outpatient (CLI) | payer MEDICARE, SELFPAY | PROVIDERS: PCP Family Medicine; Referring Provider Internal Medicine Gastroenterology; Visit Provider Internal Medicine Gastroenterology | DX: Z11.59 Encounter for screening for other viral diseases (principal) | CPT/HCPCS: 87635; C9803; U0002 ==

== ENCOUNTER → 2021-04-04 12:07 | Outpatient (CLI) | payer MEDICARE, SELFPAY ==
--- NOTE | 2021-04-04 13:29 | VDLE_ITS ---
Reason For Study: Leg swelling RIGHT LEFT GSV is normal. GSV is normal. CFV is compressible, spontaneous, phasic, CFV is compressible, spontaneous, phasic, competent and demonstrates normal competent, and demonstrates normal augmentation. augmentation. FV is compressible, spontaneous, phasic, FV is compressible, spontaneous, phasic, competent and demonstrates normal competent and demonstrates normal augmentation. augmentation. POP V is compressible, spontaneous, phasic, POP V is compressible, spontaneous, phasic, competent and demonstrates normal competent and demonstrates normal augmentation. augmentation. T/P Trunk is compressible. T/P Trunk is compressible. PTV is compressible. PTV is compressible. RT PerV is compressible. LT PerV is compressible. Procedure This is a venous duplex using B-mode, color flow and spectral Doppler. Exam performed in department. A preliminary report was called and/or faxed to Zackary. VL/Venous Duplex US - Elliott Extrem Interpretation Summary Deep veins of the lower extremities are bilaterally patent and compressible seg mentally. There is no evidence of deep vein thrombosis on either side. Valvular competence appears in tact within the proximal deep venous systems bilaterally. The great saphenous veins appear bila terally patent and compressible segmentally. Ordering Physician: Cale Raymundo Referring Physician: Cale King Performed By: Chantelle Davis RVT
[2021-04-04 15:45] LABS: AST(SGOT) 21 U/L (15-37); Alanine Aminotransfer ALT/SGPT 48 U/L (16-61); Albumin, Serum 3.6 g/dL (3.2-5.0); Alkaline Phosphatase 97 U/L (45-117); Anion Gap 4 (5-15); BUN 21 mg/dL (7-18); BUN/Creat Ratio 19.8 RATIO (10-20); Calcium,Total 8.9 mg/dL (8.5-10.1); Chloride 109 mmol/L (98-107); Creatinine, Serum 1.06 mg/dL (0.70-1.30); EST Glomerular Filtration Rate 73 mL/min (>60); Est Glom Filt Rate - Afr Amer 88 mL/min (>60); Globulin 3.7 g/dL (2.2-4.2); Glucose 92 mg/dL (74-106); Magnesium 2.2 mg/dL (1.6-2.6); Potassium 3.8 mmol/L (3.5-5.1); Protein, Total 7.3 g/dL (6.4-8.2); Sodium Level 139 mmol/L (136-145); Thyroid Stim Hormone (TSH) 1.95 uIU/mL (0.358-3.74)
== END ==
PROVIDERS: Family Medicine; PCP Family Medicine; Referring Provider Family Medicine; Visit Provider Family Medicine
DX: M79.89 Other specified soft tissue disorders (principal); R25.2 Cramp and spasm
CPT/HCPCS: 36415; 80053; 83735; 84443; 93970

== ENCOUNTER 2021-04-19 20:11 | Observation (INO) | payer OTHER, MEDICARE, SELFPAY ==
[2021-04-19] VITALS (9 sets, daily range): BP systolic 110–192; BP diastolic 61–81; PULSE 73–93; RESP 16–20; TEMP 35.9–36.9; O2SAT 95–99; BMI 17.0; BMI 35.6
--- NOTE | 2021-04-19 20:14 | ED.RN ---
CALLED FOR EKG PER RN REQUEST, PULLED OLD EKGS FOR
--- NOTE | 2021-04-19 20:25 | EKG12_ITS ---
Test Reason : CP Blood Pressure : / mmHG Vent. Rate : 088 BPM Atrial Rate : 088 BPM P-R Int : 146 ms QRS Dur : 084 ms QT Int : 366 ms P-R-T Axes : 058 049 044 degrees QTc Int : 442 ms Sinus rhythm with Premature atrial complexes Otherwise normal ECG Confirmed by NASEEM LOVELL, ALISIA ([id number]), editorial manager PHOENIX RÍOS ([id number]) on 04/20/2021 11:31:58 AM Referred By: KENYATTA Confirmed By:ALISIA GUSMAN MD
--- NOTE | 2021-04-19 20:27 | EDS_ITS ---
HPI History of Present Illness Chief Complaint: Chest Pain Detail of Chief Complaint: Patient presents with chest pain x4 days Informant: patient Onset/Context/Timing Timing: Continuous Quality: Positive for Aching Current Severity: 10 Maximum Severity: /10 Worsened By: Nothing Narrative Narrative: Patient presents with chest discomfort that started 4 days ago. Patient initially thought it was heartburn he has been using Mylanta which seems to help the discomfort a little bit but never goes away. He describes pain in both sides of the chest and describes it as a achy pain. Said no nausea or vomiting. Does describe some shortness of breath. Has had a mild cough. Pain does not radiate into the arm or neck or jaw. Prior Similar Symptoms: No PE Risk Factors: Positive for Prior DVT or PE PFSH PFSH Medical History (Updated 04/19/21 @ 21:[address] Camilo Ge, DO) Asthma Crohn's disease IBS (irritable bowel syndrome) Home Medications fluticasone furoate-vilanterol [Breo Ellipta 200-25 Mcg INH] 1 ea IH DAILY 04/04/19 [History Last Taken Unknown] albuterol sulfate 1 puff INHALATION Q4H PRN PRN 11/30/19 [History Last Taken Unknown] prednisone 4 mg PO DAILY 11/30/19 [History Last Taken Unknown] omeprazole 40 mg PO DAILY 04/19/21 [History Last Taken Unknown] polyethylene glycol 3350 17 g PO DAILY 04/19/21 [History Last Taken Unknown] Allergy/AdvReac Type Severity Reaction Status Date / Time No Known Allergies Allergy Verified 04/19/21 20:14 Surgical History (Updated 04/19/21 @ 20:16 by Rosi Krueger) Hx of cholecystectomy Social History Smoking Status: Former smoker ROS ROS ED Review of Systems ROS Unobtainable: other Constitutional Constitutional ED: Reports lethargy; Denies chills, fever(s), sweats or weight loss Eyes Eyes: Denies blurry vision, change in vision or diplopia ENT ENT ED: Denies rhinorrhea or sore throat Cardiovascular Cardiovascular: Reports chest pain; Denies orthopnea or racing heartbeat Respiratory/Chest Respiratory/Chest: Reports cough, dyspnea and dyspnea on exertion; Denies orthopnea or sputum Gastrointestinal Gastrointestinal: Denies abdominal pain, diarrhea, nausea or vomiting Genitourinary Genitourinary ED: Denies dysuria, hematuria or urinary frequency Musculoskeletal Musculoskeletal: Denies arthralgias, back pain, myalgias or neck pain Integumentary Denies abscess, Abrasions or rash Neurologic Neurologic: Denies headache(s) or weakness Psychiatric Psychiatric: Denies anxiety, depression or suicidal thoughts Endocrine Endocrinology: Denies polydipsia, polyphagia or polyuria Hematologic/Lymphatic Hematologic/Lymphatic: Denies easy bleeding, easy bruising or lymphadenopathy Allergic/Immunologic Allergic/Immunologic ED: Denies mouth swelling, tongue swelling or urticaria EXAM Physical Exam Const Vital Signs: 04/19/21 20:11 04/19/21 20:14 04/19/21 20:30 Temperature 97 F L 97 F L Temperature Source Temporal Temporal Pulse Rate 93 93 Respiratory Rate 20 H 20 H Blood Pressure 192/81 H 192/81 H Blood Pressure Mean 118 118 Pulse Ox 98 98 98 Oxygen Delivery Method Room Air Room Air Room Air 04/19/21 20:41 04/19/21 21:15 Temperature Temperature Source Pulse Rate 85 85 Respiratory Rate 18 Blood Pressure 192/81 H 110/61 Blood Pressure Mean 77 Pulse Ox 95 Oxygen Delivery Method Room Air Positive well nourished and well developed General Appearance ED: well developed and NAD HEENT Reports TM's clear and moist mucous membranes normocephalic and atraumatic; Negative for trauma or tenderness Tympanic Membrane ED: Yes TM's clear Eyes PERRL and EOMs intact bilaterally General Eye ED: Negative for pale conjunctiva or scleral icterus Neck no lymphadenopathy, supple and no JVD General: Negative for tenderness Chest Wall inspection of chest normal and palpation of chest normal Chest: Negative for tenderness Resp normal respiratory effort and clear to auscultation bilaterally Effort and Inspection: Negative for respiratory distress or pain with movement Auscultation: Negative for rhonchi, wheezes or diminished lung sounds Cardio regular rate, regular rhythm, S1 normal heart sound, S2 normal heart sound and no murmurs Peripheral Pulses: pulses 2+ throughout GI normal to inspection, nondistended, normoactive bowel sounds, soft to palpation, non-tender, non-distended and no masses Back/Spine no CVA tenderness and no thoracic nor lumbar tenderness Extremity normal to inspection General Extremety ED: Negative for edema General Extremity: Negative for edema Neuro oriented x3, CN's II-XII intact bilaterally, no sensory deficits noted and gait normal Sensorium / Orientation: awake, alert, oriented to person, oriented to place and oriented to time Motor Exam: strength 5/5 throughout and strength abnormal Psych mental status grossly normal Skin no rashes or lesions noted and no wounds Heart Score History: Moderately Suspicious ECG: Normal Age: >/= 65 years Risk Factors: 1 or 2 Risk Factors Troponin: </= Normal Limit Score: 4 MDM MDM MDM Narrative Medical decision making narrative: Patient placed on a disease education specialist on arrival an IV line established. Patient was given aspirin. Patient received 1 sublingual nitroglycerin which dropped his blood pressure from the 190 systolic though 110 systolic range. Patient's chest pressure resolved with 1 nitro. Patient stated that his discomfort started to come back and get an inch of Nitropaste placed the anterior chest wall. Lab Data Attestation: I reviewed the patient's lab results. Labs: Laboratory Results - last 24 hr 04/19/21 04/19/21 04/19/21 20:20 20:20 20:20 WBC 10.5 RBC 4.82 Hgb 15.0 Hct 44.9 MCV 93.2 MCH 31.1 MCHC 33.4 RDW Std Deviation 43.8 RDW Coeff of Sandra 12.8 Plt Count 230 MPV 9.9 Immature Gran % (Auto) 0.600 Neut % (Auto) 73.4 H Lymph % (Auto) 15.9 L [place] % (Auto) 7.0 Eos % (Auto) 2.3 Baso % (Auto) 0.8 Absolute Neuts (auto) 7.7 Absolute Lymphs (auto) 1.66 Nucleated RBC % 0 D-Dimer Quant (PE/DVT) 0.66 H* Sodium 142 Potassium 4.2 Chloride 107 Carbon Dioxide 29.0 Anion Gap 6 BUN 23 H Creatinine 1.50 H Estim Creat Clear Calc 33.49 Est GFR (MDRD) Af Amer 59 L Est GFR (MDRD) Non-Af 49 L BUN/Creatinine Ratio 15.3 Glucose 112 H Calcium 9.4 Troponin I < 0.015 Radiography Chest X-Ray - ED: 1 View Diagnostic Testing: . Pain interpreted by myself as no acute disease process. EKG Initial EKG: Comments: This rhythm with a ventricular rate of 80 bpm occasional PACs. Prior EKG tracings: available for review Prior: Unchanged Discharge Plan Dx/Rx/DC Orders Clinical Impression: Chest pain Disposition Disposition: Acute Care Hospital [facility]
[2021-04-19] MEDS: Nitroglycerin SL (ED/IMG/CATH) 0.4 MG TABLET SL (20:41)
[2021-04-19] MEDS: Aspirin 81 MG TAB.CHEW 324 MG PO (20:41)
[2021-04-19] MEDS: 0.9% Normal Saline 1,000 ML 150 ML IV (20:41)
[2021-04-19 20:48] LABS: Absolute Lymphocyte Count 1.66 X10^3/uL (0.83-4.51); Absolute Neutrophil Count 7.7 X10^3/uL (2.0-7.7); Basophil# 0.08 X10^3/uL; Basophil% 0.8 % (0-1); Eosinophil# 0.24 X10^3/uL; Eosinophils% 2.3 % (0-5); Hematocrit 44.9 % (40-54); Lymphocyte # 1.66 X10^3/ul (0.83-4.51); Lymphocyte % 15.9 % (19-41); Mean Corp Hgb Conc 33.4 g/dL (32-36); Mean Corpuscular Hgb 31.1 pg (27.0-32.0); Mean Corpuscular Volume 93.2 fL (80-94); Mean Platelet Vol. 9.9 fl (6.2-12.0); Monocyte# 0.73 X10^3/uL; NRBC Flagged by Analyzer 0 % (0-5); Neutrophil % 73.4 % (47-70); Platelet Count 230 K/mm3 (150-450); RBC Distribution Width CV 12.8 % (11.6-14.6); RBC Distribution Width SD 43.8 fl (35.1-43.9); Red Blood Count 4.82 M/mm3 (4.6-6.2); White Blood Count 10.5 K/mm3 (4.4-11.0)
[2021-04-19 20:58] LABS: Anion Gap 6 (5-15); BUN 23 mg/dL (7-18); BUN/Creat Ratio 15.3 RATIO (10-20); Calcium,Total 9.4 mg/dL (8.5-10.1); Chloride 107 mmol/L (98-107); EST Glomerular Filtration Rate 49 mL/min (>60); Est Glom Filt Rate - Afr Amer 59 mL/min (>60); Estimated Creatinine Clearance 33.49 ml/min; Glucose 112 mg/dL (74-106); Potassium 4.2 mmol/L (3.5-5.1); Sodium Level 142 mmol/L (136-145)
--- NOTE | 2021-04-19 21:03 | RAD_ITS ---
HISTORY: chest pain EXAMINATION/TECHNIQUE: XR Chest 1 View: Portable upright AP chest x-ray COMPARISON: 12/25/19 FINDINGS: LINES/DEVICES: None. LUNGS: No consolidation, edema or effusion. No pneumothorax. MEDIASTINUM AND CARDIOVASCULAR STRUCTURES: Cardiac silhouette not enlarged. Central airways and mediastinal contour are unremarkable. BONES AND SOFT TISSUES: No acute bony abnormalities. RAD/Chest 1 View (Portable) IMPRESSION: No radiographic evidence of acute cardiopulmonary disease. at 2154 Reported and signed by: Mitchell Foster MD Electronically Signed: Mitchell Foster MD at 21:53 EDT Tel , Service support ,
[2021-04-19 21:04] LABS: D-Dimer Quantitative (DVT/PE) 0.66 FEU/ug/m (0.27-0.49)
[2021-04-19] MEDS: Nitroglycerin Oint 1 INCH PACKET TD (21:24)
--- NOTE | 2021-04-19 21:33 | HP.PCM.HOS_ITS ---
[facility] - General General Date of Admission: 04/19/21 Date of Service: 04/19/21 Chief Complaint: Chest pain. [facility] Narrative LIBRADO GUILLEN, is a 75 M with past medical history as mentioned below presented to the emergency room because of chest pain. Symptoms started 3 days ago with chest pain, across his chest, squeezing type pain, 7 out of 10 in severity, constant, associated with shortness of breath as well as mild cough and no aggravating or relieving factors. He mentioned that the pain has been constant and persistent since the start. Initially, he thought it might be due to reflux disease and he took Mylanta which helped only for short relief, but the pain came back. Upon arrival to ED, blood pressure was high elevated, was given sublingual nitro and blood pressure improved and his chest pain improved as well. Currently, blood pressure stable, other vital signs are stable. Routine blood work was remarkable for BUN of 23 and creatinine of 1.50. D-dimer was 0.66 and it is normal when adjusted to age. Chest x-ray showed no acute findings. EKG revealed normal sinus rhythm with PACs, no acute acute changes. First troponin is negative. Patient is being admitted for chest pain for evaluation also found to have mild acute kidney injury. [facility] Medical History (Updated 04/19/21 @ 21:[address] Jeannine Rivera MD) Asthma Crohn's disease IBS (irritable bowel syndrome) Home Medications fluticasone furoate-vilanterol [Breo Ellipta 200-25 Mcg INH] 1 ea IH DAILY 04/04/19 [History Last Taken Unknown] albuterol sulfate 1 puff INHALATION Q4H PRN PRN 11/30/19 [History Last Taken Unknown] prednisone 4 mg PO DAILY 11/30/19 [History Last Taken Unknown] omeprazole 40 mg PO DAILY 04/19/21 [History Last Taken Unknown] polyethylene glycol 3350 17 g PO DAILY 04/19/21 [History Last Taken Unknown] Allergy/AdvReac Type Severity Reaction Status Date / Time No Known Allergies Allergy Verified 04/19/21 20:14 no significant family history Surgical History Hx of cholecystectomy Social History Smoking Status: Former smoker ROS Constitutional Constitutional: Denies anorexia, chills, fatigue, fever(s) or malaise Eyes Eyes: Denies blurry vision, change in eye color, change in vision, double vision or eye pain ENT HEENT: Denies ear pain, epistaxis, headache(s), nasal congestion, post nasal drip or sore throat Cardiovascular Cardiovascular: Reports chest pain and dyspnea on exertion; Denies edema, lightheadedness, orthopnea, palpitations, paroxysmal nocturnal dyspnea or syncope Respiratory/Chest Respiratory/Chest: Reports cough, dyspnea and shortness of breath with exertion; Denies hemoptysis, productive cough or wheezing Gastrointestinal Gastrointestinal: Denies abdominal pain, constipation, diarrhea, hematemesis, hematochezia, melena, nausea or vomiting Genitourinary Genitourinary: Denies burning urination, dysuria, hematuria, urinary hesitancy or urinary urgency Musculoskeletal Musculoskeletal: Denies arthralgias, back pain, joint pain, joint swelling, myalgias or neck pain Neurologic Neurologic: Denies confusion, dizziness, focal weakness, headache(s), numbness, paresthesias, seizures, tingling or tremor(s) Psychiatric Psychiatric: Denies anxiety, depression, hallucinations, homicidal ideation or suicidal ideation Endocrine Endocrinology: Denies change in body appearance, cold intolerance, heat intolerance, polydipsia or polyuria Hematologic/Lymphatic Hematologic/Lymphatic: Denies easy bleeding, easy bruising or lymphadenopathy Allergic/Immunologic Allergic/Immunologic: Denies itchy eyes, rhinitis, throat swelling, tongue swelling, hives, urticaria or wheezing Vital Signs Vital Signs Vital Signs: 04/19/21 20:11 04/19/21 20:14 04/19/21 20:30 Temperature 97 F L 97 F L Temperature Source Temporal Temporal Pulse Rate 93 93 Respiratory Rate 20 H 20 H Blood Pressure 192/81 H 192/81 H Blood Pressure Mean 118 118 Pulse Ox 98 98 98 Oxygen Delivery Method Room Air Room Air Room Air 04/19/21 20:41 04/19/21 21:15 04/19/21 21:24 Temperature Temperature Source Pulse Rate 85 85 80 Respiratory Rate 18 Blood Pressure 192/81 H 110/61 110/61 Blood Pressure Mean 77 Pulse Ox 95 Oxygen Delivery Method Room Air 04/19/21 21:25 Temperature 98.4 F Temperature Source Oral Pulse Rate 80 Respiratory Rate 16 Blood Pressure 110/61 Blood Pressure Mean 77 Pulse Ox 96 Oxygen Delivery Method Room Air Weight Weight: 119 lb Body Mass Index (BMI) 17.0 Physical Exam Const alert, oriented x3, no apparent distress and no limitations General Appearance: cooperative, comfortable and well kempt HEENT normocephalic, head/scalp atraumatic and moist oral mucous membranes Head and Scalp: normocephalic and atraumatic Eyes PERRL, EOMs intact bilaterally, conjunctivae normal and no scleral icterus General Eye: normal appearance of both eyes Periorbital: periorbital findings normal Neck no lymphadenopathy, supple, no meningeal signs, no JVD and no carotid bruits General: trachea midline Thyroid: thyroid normal Resp normal respiratory effort, normal air movement and clear to auscultation bilaterally Auscultation: Negative for crackles, rales, rhonchi or wheezes Cardio regular rate, regular rhythm, S1 normal heart sound, S2 normal heart sound, no murmurs and no JVD Peripheral Pulses: pulses 2+ throughout GI normal to inspection, nondistended, normoactive bowel sounds, soft to palpation, non-tender and non-distended; Negative for hepatosplenomegaly Auscultation: normoactive bowel sounds Extremity normal to inspection, full ROM and no clubbing, cyanosis or edema Skin no rashes or lesions noted, no wounds and no petechiae Neuro oriented x3, CN's II-XII intact bilaterally and moves all extremities Sensorium / Orientation: alert Speech: speech normal Motor Exam: strength 5/5 throughout Psych mental status grossly normal, affect normal and denies hallucinations Lab / Micro Data Result Diagrams: 04/19/21 20:20 04/19/21 20:20 Labs: Laboratory Results - last 24 hr 04/19/21 04/19/21 04/19/21 20:20 20:20 20:20 WBC 10.5 RBC 4.82 Hgb 15.0 Hct 44.9 MCV 93.2 MCH 31.1 MCHC 33.4 RDW Std Deviation 43.8 RDW Coeff of Sandra 12.8 Plt Count 230 MPV 9.9 Immature Gran % (Auto) 0.600 Neut % (Auto) 73.4 H Lymph % (Auto) 15.9 L [place] % (Auto) 7.0 Eos % (Auto) 2.3 Baso % (Auto) 0.8 Absolute Neuts (auto) 7.7 Absolute Lymphs (auto) 1.66 Nucleated RBC % 0 D-Dimer Quant (PE/DVT) 0.66 H* Sodium 142 Potassium 4.2 Chloride 107 Carbon Dioxide 29.0 Anion Gap 6 BUN 23 H Creatinine 1.50 H Estim Creat Clear Calc 33.49 Est GFR (MDRD) Af Amer 59 L Est GFR (MDRD) Non-Af 49 L BUN/Creatinine Ratio 15.3 Glucose 112 H Calcium 9.4 Troponin I < 0.015 Assessment & Plan Assessment/Plan (1) JUAN PABLO (acute kidney injury): (2) Chest pain: (3) Bronchial asthma: (4) Crohn's disease: (5) GERD (gastroesophageal reflux disease): PLAN: This is a 75 years old male patient presented to the emergency room because of chest pain and he is being admitted for evaluation and also found to have mild acute kidney injury. #1 chest pain: Risk factors are age and being a former smoker. No family history of premature CAD. Patient has been on prednisone for a long time. Initial EKG was unremarkable, no acute ischemic changes. Chest x-ray reviewed a s above. Troponin is negative. D-dimer was 0.66 which is elevated but age- adjusted D-dimer is 0.73 which is normal to his age. Patient is not tachycardic or hypoxic. Plan: Admit to PCU for observation, cardiac monitoring, serial cardiac enzymes, sublingual nitro as needed for chest pain, Tylenol as needed, Zofran as needed, IV fluids, lipid profile, nuclear stress test tomorrow morning cardiac enzymes are negative. #2 mild acute kidney injury: BUN has been slightly elevated at baseline but creatinine has been normal, admission creatinine is 1.50. Plan: Gentle IV fluids for hydration, input output chart, repeat BMP tomorrow morning. #3 elevated blood pressure: Without history of hypertension. Upon arrival to ED, blood pressure was in the 190 systolic. After nitroglycerin, blood pressure is down to 110 systolic, slightly improved. Plan to monitor, IV hydralazine as needed. #4 bronchial asthma: Stable, on room air. Chest x-ray was unremarkable. Patient has been on long-term steroids for more than 20 years. Plan for albuterol as needed, continue Breo Ellipta, continue prednisone daily. #5 Crohn's disease: Stable, no acute issues. #6 GERD: Continue PPI. #6 DVT prophylaxis: Subcu heparin. This note was generated with LogRhythmation software. It may contain incorrect words, spelling, and punctuation that were not noted in checking the note before signing. Visit Charges OBSV E&M: 16746 Initial observation care L3
[2021-04-19] MEDS: Heparin Injection (Vial) 5,000 UNIT/ML VIAL 5000 UNIT SC (22:40)
--- NOTE | 2021-04-19 23:26 | EKG12_ITS ---
Test Reason : AM EKG Blood Pressure : / mmHG Vent. Rate : 069 BPM Atrial Rate : 069 BPM P-R Int : 166 ms QRS Dur : 096 ms QT Int : 388 ms P-R-T Axes : 061 049 050 degrees QTc Int : 415 ms Normal sinus rhythm Normal ECG When compared with ECG of 19-APR-2021 22:29, MANUAL COMPARISON REQUIRED, DATA IS UNCONFIRMED Confirmed by JOHN LOVELL, JERICA ([id number]), editor house organ PHOENIX RÍOS ([id number]) on 04/21/2021 10:24:58 AM Referred By: LUIS Confirmed By:JERICA LOPEZ MD
[2021-04-20] VITALS (8 sets, daily range): BP systolic 123–137; BP diastolic 63–74; PULSE 64–88; RESP 18–20; TEMP 36.1–36.8; O2SAT 96–99
[2021-04-20 02:30] LABS: Anion Gap 3 (5-15); BUN 24 mg/dL (7-18); BUN/Creat Ratio 19.5 RATIO (10-20); Calcium,Total 8.6 mg/dL (8.5-10.1); Chloride 111 mmol/L (98-107); Cholesterol 158 mg/dL (200); Creatinine, Serum 1.23 mg/dL (0.70-1.30); EST Glomerular Filtration Rate 61 mL/min (>60); Est Glom Filt Rate - Afr Amer 74 mL/min (>60); Estimated Creatinine Clearance 55.23 ml/min; Glucose 124 mg/dL (74-106); High Density Lipoprotein 43 mg/dL; Potassium 3.9 mmol/L (3.5-5.1); Sodium Level 142 mmol/L (136-145); Triglycerides 77 mg/dL; Very Low Density Lipoprotein 15 mg/dL (5-40)
--- NOTE | 2021-04-20 05:55 | EKG12_ITS ---
Test Reason : ADM EKG Blood Pressure : / mmHG Vent. Rate : 078 BPM Atrial Rate : 078 BPM P-R Int : 162 ms QRS Dur : 086 ms QT Int : 380 ms P-R-T Axes : 058 045 044 degrees QTc Int : 433 ms Normal sinus rhythm Normal ECG When compared with ECG of 24-DEC-2019 07:55, Premature supraventricular complexes are no longer Present ST elevation has replaced ST depression in Anterior leads Confirmed by JOHN LOVELL, JERICA ([id number]), acquisition editor PHOENIX RÍOS ([id number]) on 04/21/2021 10:25:26 AM Referred By: LUIS Confirmed By:JERICA LOPEZ MD
[2021-04-20] MEDS: 0.9% Normal Saline 1,000 ML 100 ML IV (06:39)
--- NOTE | 2021-04-20 06:56 | EKG12_ITS ---
Test Reason : Blood Pressure : / mmHG Vent. Rate : 061 BPM Atrial Rate : 061 BPM P-R Int : 158 ms QRS Dur : 094 ms QT Int : 410 ms P-R-T Axes : 050 051 050 degrees QTc Int : 412 ms Normal sinus rhythm Normal ECG Confirmed by NASEEM LOVELL, ALISIA ([id number]), fan mail editor PHOENIX RÍOS ([id number]) on 04/21/2021 10:33:14 AM Referred By: RUBIA Confirmed By:ALISIA GSUMAN MD
[2021-04-20] MEDS: Albuterol 2.5 MG/3 ML VIAL.NEB. INHALATION ×2 (07:12→13:00)
[2021-04-20] MEDS: oxyCODONE 5 MG Tablet PO (09:22)
[2021-04-20] MEDS: Pantoprazole Sodium 40 MG Tablet PO (09:22)
[2021-04-20] MEDS: predniSONE 1 MG Tablet 4 MG PO (11:24)
[2021-04-20] MEDS: Polyethylene Glycol 3350 17 GM PACKET PO (11:24)
--- NOTE | 2021-04-20 13:39 | PCM.DC ---
Discharge Instructions Diet Discharge Diet: No restrictions Activity Discharge Activity: Return to Normal Activity Follow Up Care Please Follow Up With: Primary care provider When: On your scheduled appointment March 28, 2021. Test Results: Test results from this visit will be discussed in further detail at your follow-up appointment, if applicable. Discharge Plan Admission Admit Date/Time: 04/19/21 21:31 Primary Reason for Your Visit: Chest pain Attending Provider: Barrington Rasmussen Primary Care Provider: Cale King Instructions Patient Instructions: ED Chest Pain, Noncardiac, ED GERD (Adult), ED Chest Pain, Uncertain Cause Discharge Orders/Prescriptions Prescriptions: Continued Breo Ellipta 1 EACH blister with device 1 ea IH DAILY RF: 0 albuterol sulfate 2.5 MG/3ML solution for nebulization 1 puff inhalation Q4H PRN PRN (Reason: Sob &/Or Wheezing) RF: 0 prednisone 1 MG tablet 4 mg PO DAILY RF: 0 polyethylene glycol 3350 17 gram Powder In Packet 17 g PO DAILY RF: 0 omeprazole 40 mg Capsule,Delayed Release(Dr/Ec) 40 mg PO BID RF: 0 bisacodyl 5 mg Tablet 10 mg PO DAILY RF: 0 mesalamine 400 mg Capsule,Delayed Release(Dr/Ec) 2,400 mg PO DAILY RF: 0 Referrals / Follow Up: Cale King MD [Primary Care Provider] - Disposition Disposition (needs filled in before D/C Order can be placed): Home, self care
--- NOTE | 2021-04-20 13:42 | PCM.DC.SUM ---
Providers Date of Admission: 04/19/21 Date of Discharge: 04/20/21 Primary Care Physician: Dr. Cale King MD Reason For Visit: CHEST PAIN Diagnosis Discharge Diagnosis (1) JUAN PABLO (acute kidney injury): Status: Acute Code(s): N17.9 - Acute kidney failure, unspecified (2) Chest pain: Status: Acute Code(s): R07.9 - Chest pain, unspecified (3) Bronchial asthma: Status: Chronic Code(s): J45.909 - Unspecified asthma, uncomplicated (4) Crohn's disease: Status: Chronic Code(s): K50.90 - Crohn's disease, unspecified, without complications (5) GERD (gastroesophageal reflux disease): Status: Chronic Code(s): K21.9 - Gastro-esophageal reflux disease without esophagitis Medications at Discharge Home Medications Breo Ellipta 1 ea IH DAILY 04/04/19 albuterol sulfate 1 puff INHALATION Q4H PRN PRN 11/30/19 prednisone 4 mg PO DAILY 11/30/19 bisacodyl 10 mg PO DAILY 04/19/21 mesalamine 2,400 mg PO DAILY 04/19/21 omeprazole 40 mg PO BID 04/19/21 polyethylene glycol 3350 17 g PO DAILY 04/19/21 Hospital Course Summary of Care Provided Minutes Spent on Discharge: 35 Hospital Course: 1) Chest pain Patient endorses a mild chest pain, which he reports feels more like heartburn, which he does have a history of. Patient already on max dose of PPI. Initial EKG was unremarkable, no acute ischemic changes. Chest x-ray reviewed demonstrates no acute cardiopulmonary disease. Troponin is negative. Lipid panel within normal limits. D-dimer was 0.66 which is elevated but age-adjusted D-dimer is 0.73 which is normal to his age. Stress test negative. Plan; follow-up with primary care provider on your scheduled appointment on March 28, 2021 for refractory GERD. 2) Acute kidney injury Currently 1.23, down from admission. 3) Elevated blood pressure Elevated on admission, currently stable. 4) Bronchial asthma: Stable. Patient has been on long-term steroids for more than 20 years. Plan; continue Brio Ellipta, steroids, albuterol. 5) Crohn's disease Stable, no acute issues. 6) GERD Continue PPI. Follow-up with primary care provider as above for refractory GERD. Physical Exam Narrative Patient is a 75-year-old male comfortably resting in bed, alert and oriented x3. Patient reports no change or progression in symptoms from admission. Patient does endorse mild chest pain, but she feels it is more like heartburn which she does have a history of. Denies shortness of breath, sputum production, hemoptysis, leg pain, palpitations, fever, chills, N/V/D. Const alert, oriented x3 and no apparent distress HEENT normocephalic, head/scalp atraumatic and hearing grossly normal bilaterally Eyes PERRL and EOMs intact bilaterally Neck no lymphadenopathy, supple and no JVD Resp normal respiratory effort, no retractions, no use of accessory muscles and clear to auscultation bilaterally Cardio regular rate and regular rhythm GI normal to inspection, nondistended, normoactive bowel sounds, soft to palpation, non-tender and non-distended Extremity normal to inspection, full ROM and no clubbing, cyanosis or edema Skin no rashes or lesions noted and no wounds Neuro CN's II-XII intact bilaterally Psych affect normal ABG / Lab / Microbiology Data Result Diagrams: 04/19/21 20:20 04/20/21 02:05 Laboratory: Laboratory Results - last 24 hr 04/19/21 04/19/21 04/19/21 20:20 20:20 20:20 WBC 10.5 RBC 4.82 Hgb 15.0 Hct 44.9 MCV 93.2 MCH 31.1 MCHC 33.4 RDW Std Deviation 43.8 RDW Coeff of Sandra 12.8 Plt Count 230 MPV 9.9 Immature Gran % (Auto) 0.600 Neut % (Auto) 73.4 H Lymph % (Auto) 15.9 L [place] % (Auto) 7.0 Eos % (Auto) 2.3 Baso % (Auto) 0.8 Absolute Neuts (auto) 7.7 Absolute Lymphs (auto) 1.66 Nucleated RBC % 0 D-Dimer Quant (PE/DVT) 0.66 H* Sodium 142 Potassium 4.2 Chloride 107 Carbon Dioxide 29.0 Anion Gap 6 BUN 23 H Creatinine 1.50 H Estim Creat Clear Calc 33.49 Est GFR (MDRD) Af Amer 59 L Est GFR (MDRD) Non-Af 49 L BUN/Creatinine Ratio 15.3 Glucose 112 H Calcium 9.4 Troponin I < 0.015 Triglycerides Cholesterol LDL Cholesterol VLDL Cholesterol HDL Cholesterol 04/19/21 04/19/21 04/20/21 20:20 23:05 02:05 WBC RBC Hgb Hct MCV MCH MCHC RDW Std Deviation RDW Coeff of Sandra Plt Count MPV Immature Gran % (Auto) Neut % (Auto) Lymph % (Auto) [place] % (Auto) Eos % (Auto) Baso % (Auto) Absolute Neuts (auto) Absolute Lymphs (auto) Nucleated RBC % D-Dimer Quant (PE/DVT) Sodium 142 Potassium 3.9 Chloride 111 H Carbon Dioxide 28.0 Anion Gap 3 L BUN 24 H Creatinine 1.23 Estim Creat Clear Calc 55.23 Est GFR (MDRD) Af Amer 74 Est GFR (MDRD) Non-Af 61 BUN/Creatinine Ratio 19.5 Glucose 124 H Calcium 8.6 Troponin I < 0.015 < 0.015 Triglycerides Cancelled 77 Cholesterol Cancelled 158 LDL Cholesterol Cancelled 100 VLDL Cholesterol Cancelled 15 HDL Cholesterol Cancelled 43 Radiography Diagnostic Testing: Radiology Impression Chest X-Ray 04/19/21 21:03 IMPRESSION: No radiographic evidence of acute cardiopulmonary disease. at 2154 Reported and signed by: Mitchell Foster MD Electronically Signed: Mitchell Foster MD at 21:53 EDT Tel , Service support , D/C Instructions Discharge Diet: No restrictions Discharge Activity: Return to Normal Activity Please Follow Up With: Primary care provider When: On your scheduled appointment March 28, 2021. Meaningful Use Info Meaningful Use Diagnoses (Choose all that apply): None applicable Discharge Plan Admission Admit Date/Time: 04/19/21 21:31 Primary Reason for Your Visit: Chest pain Attending Provider: Barrington Rasmussen Primary Care Provider: Cale King Instructions Patient Instructions: ED Chest Pain, Noncardiac, ED Chest Pain, Uncertain Cause, ED GERD (Adult) Discharge Orders/Prescriptions Prescriptions: Continued Breo Ellipta 1 EACH blister with device 1 ea IH DAILY RF: 0 albuterol sulfate 2.5 MG/3ML solution for nebulization 1 puff inhalation Q4H PRN PRN (Reason: Sob &/Or Wheezing) RF: 0 prednisone 1 MG tablet 4 mg PO DAILY RF: 0 polyethylene glycol 3350 17 gram Powder In Packet 17 g PO DAILY RF: 0 omeprazole 40 mg Capsule,Delayed Release(Dr/Ec) 40 mg PO BID RF: 0 bisacodyl 5 mg Tablet 10 mg PO DAILY RF: 0 mesalamine 400 mg Capsule,Delayed Release(Dr/Ec) 2,400 mg PO DAILY RF: 0 Referrals / Follow Up: Cale King MD [Primary Care Provider] - Disposition Disposition (needs filled in before D/C Order can be placed): Home, self care
--- NOTE | 2021-04-20 13:48 | STRESSREP ---
Stress Test Report Regadenoson myocardial perfusion stress test. Indication; 75-year-old patient presented with symptoms of chest pain Has negative series of troponin I Patient had a history of Crohn's disease, irritable bowel syndrome and gastroesophageal reflux disease. Stress protocol: Resting EKG demonstrates. Normal sinus rhythm. 0.4 mg of regadenoson was infused per usual protocol followed by rapid intravenous saline flush injection continuous EKG monitoring was performed. The maximum heart rate attained was 100 bpm which was 68% of maximum predicted heart . Stress EKG normal sinus, no significant change from the resting EKG, with maximum heart rate of 100 bpm. Arrhythmia: No arrhythmia demonstrated Symptoms: Patient had no symptoms of chest pain Blood pressure at rest: 124/68 mmHg, blood pressure at the end of stress 144/62 mmHg Myocardial perfusion protocol. 15 mCi ]of Technetium 99m Sestamibi was injected at rest. [ 0.4 mg ]of Regadenoson was infused per usual protocol peak infusion 45 mCi ]of Technetium 99m sestamibi was injected. Stress images were obtained stress and rest images were reconstructed and compared in the short axis vertical and horizontal long axis. Gated images were also obtained Perfusion SPECT analysis: Review of the images demonstrate normal uptake of sestamibi at rest, post stress images demonstrate similar uptake of sestamibi to the resting images, homogeneous tracer uptake With no evidence of reversible myocardial ischemia. Reduced tracer uptake in the inferior myocardium consistent with attenuation artifact Gated SPECT analysis: The gated ejection fraction is 71%, normal left ventricular wall motion and normal LV systolic function Conclusion: Negative regadenoson sestamibi myocardial perfusion study for reversible myocardial ischemia Normal LV systolic function Kati Mauricio MD,FACC,[facility]
[2021-04-20] MEDS: Heparin Injection (Vial) 5,000 UNIT/ML VIAL 5000 UNIT SC (14:31)
== END 2021-04-20 13:41 | disposition home or self-care (01) ==
LOC: ED 21:22 → PCU 22:17
PROVIDERS: Admitting Provider Hospitalist; Emergency Provider Emergency Medicine; PCP Family Medicine
DX: R07.89 Other chest pain (principal); J45.909 Unspecified asthma, uncomplicated; N17.9 Acute kidney failure, unspecified; K50.90 Crohn's disease, unspecified, without complications; K21.9 Gastro-esophageal reflux disease without esophagitis; Z86.718 Personal history of other venous thrombosis and embolism; Z79.52 Long term (current) use of systemic steroids; Z79.899 Other long term (current) drug therapy; Z79.51 Long term (current) use of inhaled steroids; Z87.891 Personal history of nicotine dependence; R03.0 Elevated blood-pressure reading, without diagnosis of hypertension; I49.1 Atrial premature depolarization
CPT/HCPCS: 36415; 71045; 78452; 80048; 80061; 84484; 85025; 85379; 93005; 93017; 94640; 96360; 96361; 96372; 99218; 99284; A9500; J7030; A4216; G0378; J2785

== ENCOUNTER → 2021-08-01 15:08 | Outpatient (CLI) | payer MEDICARE, SELFPAY ==
[2021-08-01 18:08] LABS: PSA,Total - Annual Screen 5.68 ng/mL (0.00-4.00)
== END ==
PROVIDERS: PCP Family Medicine; Visit Provider Family Medicine
DX: Z12.5 Encounter for screening for malignant neoplasm of prostate (principal)
CPT/HCPCS: 36415; 84153; G0103

== ENCOUNTER 2021-08-07 02:48 | Emergency (ER) | payer OTHER, MEDICARE, SELFPAY ==
[2021-08-07 02:49] VITALS: BP 162/73; PULSE 87; RESP 16; TEMP 36.6; O2SAT 98; BMI 35.9
--- NOTE | 2021-08-07 03:14 | CT_ITS ---
STUDY: CT ABDOMEN AND PELVIS WITH CONTRAST REASON FOR EXAM: Male, 75 years old. Left lower quadrant abdominal pain RADIATION DOSAGE (If Supplied By Facility): CTDIvol = ( 21.68 ) mGy, DLP = ( 1286.17 ) mGycm TECHNIQUE: Transaxial images were obtained from the dome of the diaphragm to the symphysis pubis without oral contrast. IV 100mL Isovue-370 was administered. Sagittal and coronal images were reconstructed. Individualized dose optimization techniques were used for this CT. COMPARISON: 12/02/2019 FINDINGS: The visualized lung bases are unremarkable. The visualized portions of the heart are within normal limits. Normal liver. There are surgical clips in the gallbladder fossa consistent with a prior cholecystectomy. Normal spleen. Normal pancreas. Normal bilateral adrenal glands. Normal right kidney. Normal left kidney. Normal visualized stomach. Normal small intestine. There are areas of chronic mesenteric haziness. There is focal fat haziness anterior to the distal descending colon. The appendix is visualized and appears normal. Normal abdominal aorta. Normal inferior vena cava. Normal retroperitoneum. Normal urinary bladder. Normal visualized prostate gland. Normal abdominal wall. Lumbar spine degenerative disease most prominent at L4-5. CT/Abdomen/Pelvis W IV Cont ONLY IMPRESSION: Focal fat haziness anterior to the distal descending colon suggests epiploic appendagitis. Electronically Signed: Markus Forrest MD at 5:13 EDT Tel , Service support ,
--- NOTE | 2021-08-07 03:15 | EDS_ITS ---
HPI HPI - GI History of Present Illness Chief Complaint: Abd Pain Narrative Narrative: Patient presents with left-sided abdominal pain that has had for over 24 hours. He states his symptoms began Saturday evening at around midnight. He thought that it would go away, but it has worsened. His pain and tender to touch in the left lower quadrant of his abdomen. He denies other symptoms. No dysuria or hematuria. No fevers or chills. He may be slightly nauseated but has not vomited. He has past medical history of Crohn disease. [facility] Medical History (Updated 08/07/21 @ 06:52 by Zane Ulloa MD) Asthma Chest pain Crohn's disease Former smoker GERD (gastroesophageal reflux disease) IBS (irritable bowel syndrome) Sleep apnea Home Medications Breo Ellipta 1 ea IH DAILY 04/04/19 [History Last Taken 04/19/21 09:00] albuterol sulfate 1 puff INHALATION Q4H PRN PRN 11/30/19 [History Last Taken Unknown] prednisone 4 mg PO DAILY 11/30/19 [History Last Taken 04/19/21] bisacodyl 10 mg PO DAILY 04/19/21 [History Last Taken Unknown] mesalamine 2,400 mg PO DAILY 04/19/21 [History Last Taken 04/19/21] omeprazole 40 mg PO BID 04/19/21 [History Last Taken 04/19/21 16:00] polyethylene glycol 3350 17 g PO DAILY 04/19/21 [History Last Taken 04/19/21] hydrocodone-acetaminophen 1 tab PO Q6H PRN 3 Days #12 tab 08/07/21 [Rx Last T aken Unknown] Allergy/AdvReac Type Severity Reaction Status Date / Time ibuprofen AdvReac Upset Verified 08/07/21 02:52 Stomach Surgical History Hx of cholecystectomy Social History Smoking Status: Former smoker ROS ROS ED ROS Narrative Constitutional: No fever, no chills. HEENT: No sore throat. No neck pain. No loss of vision. No rhinorrhea. Cardiovascular: No chest pain. No palpitations. No pedal edema. Respiratory: No cough, no shortness of breath. Abdominal: Left lower quadrant abdominal pain. Slight nausea. No vomiting. Genitourinary: No dysuria. No hematuria. Musculoskeletal: No myalgias. No arthralgias. Neurologic: No headaches. No dizziness. No lightheadedness. Skin: No rash. No change in color. Psychiatric: No depression. No anxiety. EXAM Physical Exam Narrative Exam Narrative: Afebrile. Vital signs noted. HEENT: Normocephalic. Atraumatic. PERRL, EOMI. Neck soft and supple. No point tenderness or step off. Cardiovascular: Regular rate and rhythm. No murmurs, rubs, or gallops appreciated. Respiratory: No tachypnea. Lungs clear to auscultation bilaterally. Gastrointestinal: Abdomen soft, with tenderness to palpation in the left lower quadrant to suprapubic area, with normoactive bowel sounds. No rebound or guarding. Neurological: Awake. Alert. Nonfocal, nonlateralizing. Skin: No rash. Normal color. No pallor. Musculoskeletal: No pedal edema. Full range of motion extremities. Const Vital Signs: 08/07/21 02:49 08/07/21 06:08 Temperature 97.9 F Temperature Source Oral Pulse Rate 87 75 Respiratory Rate 16 16 Blood Pressure 162/73 H 133/67 H Blood Pressure Mean 102 89 Pulse Ox 98 98 Oxygen Delivery Method Room Air Room Air Positive obese Nutritional Appearance: obese MDM MDM MDM Narrative Medical decision making narrative: Comprehensive work-up was pursued. Baseline laboratory work shows normal white count of 9.5, hemoglobin stable at 14.8. He has normal platelet count of 192. His electrolytes show chloride slightly elevated at 111 with a sodium of 141, normal. Glucose appropriately elevated at 98. Lactic acid is normal at 1.1. Lipase is slightly low at 52. LFTs are grossly unremarkable. CT of the abdomen and pelvis with IV contrast was obtained. His CT shows focal fat haziness anterior to the distal descending colon suggesting epiploic appendagitis. Upon repeat examination, patient is having pain whenever he moves. He was redosed morphine. I did discuss the patient with the hospitalist for possible observation, but there are no available beds. And rediscussion with the patient, as this is a self-limiting entity, he will be given a prescription for 3 days worth of [place] tablets to help control his pain. He will be discharged home in stable condition. Return instructions to the emergency department were reviewed. Lab Data Attestation: I reviewed the patient's lab results. Labs: Laboratory Results - last 24 hr 08/07/21 08/07/21 08/07/21 02:59 02:59 03:30 WBC 9.5 RBC 4.83 Hgb 14.8 Hct 44.5 MCV 92.1 MCH 30.6 MCHC 33.3 RDW Std Deviation 43.2 RDW Coeff of Sandra 12.8 Plt Count 192 MPV 10.7 Immature Gran % (Auto) 0.500 Neut % (Auto) 62.7 Lymph % (Auto) 24.1 [place] % (Auto) 8.2 Eos % (Auto) 3.6 Baso % (Auto) 0.9 Absolute Neuts (auto) 6.0 Absolute Lymphs (auto) 2.29 Nucleated RBC % 0 Sodium 141 Potassium 3.8 Chloride 111 H Carbon Dioxide 22.0 Anion Gap 8 BUN 18 Creatinine 1.06 Estim Creat Clear Calc 64.09 Est GFR (MDRD) Af Amer 88 Est GFR (MDRD) Non-Af 73 BUN/Creatinine Ratio 17.0 Glucose 98 Lactic Acid 1.1 Calcium 8.6 Total Bilirubin 0.60 AST 21 ALT 33 Alkaline Phosphatase 99 Total Protein 7.1 Albumin 3.2 Globulin 3.9 Albumin/Globulin Ratio 0.8 L Lipase 52 L Urine Color Urine Clarity Urine pH Ur Specific [place] Urine Protein Urine Glucose (UA) Urine Ketones Urine Occult Blood Urine Nitrite Urine Bilirubin Urine Urobilinogen Ur Leukocyte Esterase Urine RBC Urine WBC Ur Squamous Epith Cells Urine Bacteria Urine Mucus 08/07/21 05:19 WBC RBC Hgb Hct MCV MCH MCHC RDW Std Deviation RDW Coeff of Sandra Plt Count MPV Immature Gran % (Auto) Neut % (Auto) Lymph % (Auto) [place] % (Auto) Eos % (Auto) Baso % (Auto) Absolute Neuts (auto) Absolute Lymphs (auto) Nucleated RBC % Sodium Potassium Chloride Carbon Dioxide Anion Gap BUN Creatinine Estim Creat Clear Calc Est GFR (MDRD) Af Amer Est GFR (MDRD) Non-Af BUN/Creatinine Ratio Glucose Lactic Acid Calcium Total Bilirubin AST ALT Alkaline Phosphatase Total Protein Albumin Globulin Albumin/Globulin Ratio Lipase Urine Color Yellow Urine Clarity Clear Urine pH 5.0 Ur Specific [place] 1.010 Urine Protein Negative Urine Glucose (UA) Normal Urine Ketones Negative Urine Occult Blood Negative Urine Nitrite Negative Urine Bilirubin Negative Urine Urobilinogen Normal Ur Leukocyte Esterase Negative Urine RBC 0 SEEN Urine WBC 0 SEEN Ur Squamous Epith Cells 0 SEEN Urine Bacteria 0 SEEN Urine Mucus 0 SEEN Radiography Diagnostic Testing: Radiology Impression Abdomen/Pelvis CT 08/07/21 03:14 IMPRESSION: Focal fat haziness anterior to the distal descending colon suggests epiploic appendagitis. Electronically Signed: Markus Forrest MD at 5:13 EDT Tel , Service support , Discharge Plan Triage Chief Complaint: Abd Pain ED Provider: Zane Ulloa Dx/Rx/DC Orders Clinical Impression: Abdominal pain, Epiploic appendagitis Instructions: Anatomy of the Digestive System, ED Understanding Colitis, ED Abdominal Pain Unkn Cause Male... Prescriptions: New hydrocodone-acetaminophen 2.5-325 mg tablet 1 tab PO Q6H PRN (Reason: pain) 3 Days Qty: 12 RF: 0 No Action Breo Ellipta 1 EACH blister with device 1 ea IH DAILY RF: 0 albuterol sulfate 2.5 MG/3ML solution for nebulization 1 puff inhalation Q4H PRN PRN (Reason: Sob &/Or Wheezing) RF: 0 prednisone 1 MG tablet 4 mg PO DAILY RF: 0 polyethylene glycol 3350 17 gram Powder In Packet 17 g PO DAILY RF: 0 omeprazole 40 mg Capsule,Delayed Release(Dr/Ec) 40 mg PO BID RF: 0 bisacodyl 5 mg Tablet 10 mg PO DAILY RF: 0 mesalamine 400 mg Capsule,Delayed Release(Dr/Ec) 2,400 mg PO DAILY RF: 0 Primary Care Provider: Cale King Referrals: Cale King MD [Primary Care Provider] -
[2021-08-07 03:24] LABS: Absolute Lymphocyte Count 2.29 X10^3/uL (0.83-4.51); Basophil# 0.09 X10^3/uL; Basophil% 0.9 % (0-1); Eosinophil# 0.34 X10^3/uL; Eosinophils% 3.6 % (0-5); Hematocrit 44.5 % (40-54); Hemoglobin 14.8 g/dL (13.0-16.5); Lymphocyte # 2.29 X10^3/ul (0.83-4.51); Lymphocyte % 24.1 % (19-41); Mean Corp Hgb Conc 33.3 g/dL (32-36); Mean Corpuscular Hgb 30.6 pg (27.0-32.0); Mean Corpuscular Volume 92.1 fL (80-94); Mean Platelet Vol. 10.7 fl (6.2-12.0); Monocyte# 0.78 X10^3/uL; Monocyte% 8.2 % (0-10); NRBC Flagged by Analyzer 0 % (0-5); Neutrophil # 5.97 X10^3/uL (2.7-7.7); Neutrophil % 62.7 % (47-70); POSITIVE COUNT YES; Platelet Count 192 K/mm3 (150-450); RBC Distribution Width CV 12.8 % (11.6-14.6); RBC Distribution Width SD 43.2 fl (35.1-43.9); Red Blood Count 4.83 M/mm3 (4.6-6.2); White Blood Count 9.5 K/mm3 (4.4-11.0)
[2021-08-07 03:25] LABS: Differential Indicated SCAN CRITERIA MET
[2021-08-07] MEDS: Ondansetron 4 MG/2 ML Vial IV (03:25)
[2021-08-07] MEDS: 0.9% Normal Saline 1,000 ML 1000 ML IV (03:25)
[2021-08-07] MEDS: Morphine 4 MG/ML Syringe IV ×2 (03:26→06:05)
[2021-08-07 03:41] LABS: ALB/GLOB Ratio 0.8 RATIO (0.9-2.4); AST(SGOT) 21 U/L (15-37); Alanine Aminotransfer ALT/SGPT 33 U/L (16-61); Albumin, Serum 3.2 g/dL (3.2-5.0); Alkaline Phosphatase 99 U/L (45-117); Anion Gap 8 (5-15); BUN 18 mg/dL (7-18); Calcium,Total 8.6 mg/dL (8.5-10.1); Chloride 111 mmol/L (98-107); Creatinine, Serum 1.06 mg/dL (0.70-1.30); EST Glomerular Filtration Rate 73 mL/min (>60); Est Glom Filt Rate - Afr Amer 88 mL/min (>60); Estimated Creatinine Clearance 64.09 ml/min; Globulin 3.9 g/dL (2.2-4.2); Glucose 98 mg/dL (74-106); Lipase 52 U/L (73-393); Potassium 3.8 mmol/L (3.5-5.1); Protein, Total 7.1 g/dL (6.4-8.2); Sodium Level 141 mmol/L (136-145)
[2021-08-07 03:56] LABS: Lactic Acid 1.1 mmol/L (0.4-1.9)
[2021-08-07 05:42] LABS: Bacteria 0 SEEN /hpf (None Seen); Mucous, Urine 0 SEEN /hpf (<or=2+); Red Blood Cells-Urine 0 SEEN /hpf (0-5); Squamous Epithelial Cells - UA 0 SEEN /hpf (0-5); White Blood Cells 0 SEEN /hpf (0-5)
[2021-08-07 05:43] LABS: Color, Urine Yellow (Yellow); Glucose, Dipstick Normal (Normal); Ketone-Dipstick Negative (Negative); Leukocyte Esterase-Dipstick Negative /ul (Negative); Nitrite-Dipstick Negative (Negative); Occult Blood-Urine Negative /ul (Negative); Protein-Dipstick Negative (Negative); Urine Bilirubin Dipstick Negative (Negative); Urine Clarity Clear (Clear); Urine Urobilinogen Normal (Normal)
[2021-08-07 06:08] VITALS: BP 133/67; PULSE 75; RESP 16; O2SAT 98
== END 2021-08-07 07:11 | disposition home or self-care (01) ==
LOC: ED 04:40
PROVIDERS: Emergency Provider Emergency Medicine; PCP Family Medicine
DX: K63.89 Other specified diseases of intestine (principal); K21.9 Gastro-esophageal reflux disease without esophagitis; K50.90 Crohn's disease, unspecified, without complications; Z79.52 Long term (current) use of systemic steroids; Z79.899 Other long term (current) drug therapy; Z87.891 Personal history of nicotine dependence
CPT/HCPCS: 74177; 80053; 81001; 83605; 83690; 85025; 96361; 96374; 96375; 96376; 99284; J7030; Q9967; A4216; J2405

== ENCOUNTER → 2021-09-01 12:47 | Outpatient (CLI) | payer MEDICARE, SELFPAY | PROVIDERS: PCP Family Medicine; Referring Provider Internal Medicine Pulmonary Disease; Visit Provider Internal Medicine Pulmonary Disease | DX: R05.9 Cough, unspecified (principal); J32.9 Chronic sinusitis, unspecified; R06.00 Dyspnea, unspecified | CPT/HCPCS: 87635; C9803; U0005; U0003 ==

== ENCOUNTER → 2021-09-14 11:27 | Outpatient (CLI) | payer MEDICARE, SELFPAY ==
[2021-09-14 15:45] LABS: Absolute Lymphocyte Count 1.69 X10^3/uL (0.83-4.51); Absolute Neutrophil Count 6.5 X10^3/uL (2.0-7.7); Basophil# 0.08 X10^3/uL; Basophil% 0.9 % (0-1); Eosinophil# 0.21 X10^3/uL; Eosinophils% 2.3 % (0-5); Hematocrit 40.9 % (40-54); Hemoglobin 13.4 g/dL (13.0-16.5); Lymphocyte # 1.69 X10^3/ul (0.83-4.51); Lymphocyte % 18.2 % (19-41); Mean Corp Hgb Conc 32.8 g/dL (32-36); Mean Corpuscular Hgb 31.3 pg (27.0-32.0); Mean Corpuscular Volume 95.6 fL (80-94); Mean Platelet Vol. 9.9 fl (6.2-12.0); Monocyte# 0.74 X10^3/uL; NRBC Flagged by Analyzer 0 % (0-5); Neutrophil # 6.49 X10^3/uL (2.7-7.7); Neutrophil % 69.7 % (47-70); Platelet Count 209 K/mm3 (150-450); RBC Distribution Width CV 13.1 % (11.6-14.6); RBC Distribution Width SD 45.7 fl (35.1-43.9); Red Blood Count 4.28 M/mm3 (4.6-6.2); White Blood Count 9.3 K/mm3 (4.4-11.0)
[2021-09-14 15:58] LABS: ALB/GLOB Ratio 0.8 RATIO (0.9-2.4); AST(SGOT) 40 U/L (15-37); Alanine Aminotransfer ALT/SGPT 83 U/L (16-61); Albumin, Serum 3.1 g/dL (3.2-5.0); Alkaline Phosphatase 122 U/L (45-117); Anion Gap 3 (5-15); BUN 19 mg/dL (7-18); BUN/Creat Ratio 17.8 RATIO (10-20); Chloride 108 mmol/L (98-107); Creatinine, Serum 1.07 mg/dL (0.70-1.30); EST Glomerular Filtration Rate 72 mL/min (>60); Est Glom Filt Rate - Afr Amer 87 mL/min (>60); Glucose 109 mg/dL (74-106); Potassium 4.5 mmol/L (3.5-5.1); Protein, Total 7.1 g/dL (6.4-8.2); Sodium Level 140 mmol/L (136-145)
[2021-09-14 16:11] LABS: Vitamin B12 500 pg/mL (211-911)
== END ==
PROVIDERS: PCP Family Medicine; Referring Provider Family Medicine; Visit Provider Family Medicine
DX: K14.6 Glossodynia (principal)
CPT/HCPCS: 36415; 80053; 82607; 85025

== ENCOUNTER → 2021-09-20 10:45 | Outpatient (CLI) | payer MEDICARE, SELFPAY ==
--- NOTE | 2021-09-20 10:48 | CT_ITS ---
STUDY: CT ABDOMEN AND PELVIS WITH CONTRAST REASON FOR EXAM: Male, 76 years old. Generalized abdominal pain. RADIATION DOSAGE (If Supplied By Facility): CTDIvol = ( 24.68 ) mGy, DLP = ( 1264.29 ) mGycm TECHNIQUE: Transaxial images were obtained from the dome of the diaphragm to the symphysis pubis with oral contrast. Oral and amp; IV Gastrografin and amp; 100mL Isovue-300 was administered. Sagittal and coronal images were reconstructed. Individualized dose optimization techniques were used for this CT. COMPARISON: Comparison is made with prior study dated 08/07/2021. FINDINGS: The visualized lung bases are unremarkable. The visualized portions of the heart are within normal limits. There is decreased attenuation of the liver consistent with steatosis. There are surgical clips in the gallbladder fossa consistent with a prior cholecystectomy. Normal spleen. There is diffuse atrophy of the pancreas. Normal bilateral adrenal glands. Normal right kidney. Normal left kidney. Normal visualized stomach. Normal small intestine. Normal colon. The appendix is visualized and appears normal. There is diffuse atherosclerotic calcification of the abdominal aorta and its major visceral branches, without a demonstrated aneurysm. Normal inferior vena cava. Normal retroperitoneum. Minimal residual increased markings in the left of the mesentery anterior to the distal descending colon. Diffuse bladder wall thickening. There is evidence of a 1.4 cm x 1.5 cm diverticulum along the posterior right side of the bladder base. The prostate measures 4.9 cm x 4.4 cm. Normal abdominal wall. There are degenerative changes of the visualized lumbar spine. CT/Abdomen/Pelvis WITH Contrast IMPRESSION: Fatty infiltration of the liver. Bladder wall thickening. Minimal residual haziness in the mesenteric fat anterior to the distal descending colon. Electronically Signed: Abhishek Lemus MD at 13:46 EDT , Service support ,
[2021-09-20 12:00] LABS: Absolute Lymphocyte Count 1.43 X10^3/uL (0.83-4.51); Absolute Neutrophil Count 3.9 X10^3/uL (2.0-7.7); Basophil# 0.09 X10^3/uL; Basophil% 1.4 % (0-1); Eosinophil# 0.27 X10^3/uL; Eosinophils% 4.3 % (0-5); Hematocrit 41.5 % (40-54); Hemoglobin 13.8 g/dL (13.0-16.5); Lymphocyte # 1.43 X10^3/ul (0.83-4.51); Lymphocyte % 22.7 % (19-41); Mean Corp Hgb Conc 33.3 g/dL (32-36); Mean Corpuscular Hgb 31.2 pg (27.0-32.0); Mean Corpuscular Volume 93.9 fL (80-94); Mean Platelet Vol. 9.9 fl (6.2-12.0); Monocyte# 0.62 X10^3/uL; Monocyte% 9.8 % (0-10); NRBC Flagged by Analyzer 0 % (0-5); Neutrophil # 3.85 X10^3/uL (2.7-7.7); Neutrophil % 61.2 % (47-70); Platelet Count 223 K/mm3 (150-450); RBC Distribution Width CV 12.9 % (11.6-14.6); RBC Distribution Width SD 44.3 fl (35.1-43.9); Red Blood Count 4.42 M/mm3 (4.6-6.2); White Blood Count 6.3 K/mm3 (4.4-11.0)
[2021-09-20 12:43] LABS: Anion Gap 6 (5-15); BUN 17 mg/dL (7-18); BUN/Creat Ratio 14.2 RATIO (10-20); Calcium,Total 9.2 mg/dL (8.5-10.1); Chloride 109 mmol/L (98-107); EST Glomerular Filtration Rate 63 mL/min (>60); Est Glom Filt Rate - Afr Amer 76 mL/min (>60); Glucose 101 mg/dL (74-106); Potassium 4.2 mmol/L (3.5-5.1); Sodium Level 141 mmol/L (136-145)
== END ==
PROVIDERS: PCP Family Medicine; Referring Provider Family Medicine; Visit Provider Family Medicine
DX: K76.0 Fatty (change of) liver, not elsewhere classified (principal); N40.0 Benign prostatic hyperplasia without lower urinary tract symptoms; R10.9 Unspecified abdominal pain
CPT/HCPCS: 36415; 74177; 80048; 85025; Q9967

== ENCOUNTER → 2021-09-29 | Outpatient (CLI) | payer MEDICARE, SELFPAY | END | disposition home or self-care (01) | LOC: LABSPEC 15:33 | PROVIDERS: PCP Family Medicine; Referring Provider Otolaryngology; Visit Provider Otolaryngology | DX: K14.6 Glossodynia (principal) | CPT/HCPCS: 87070; 87205 ==

== ENCOUNTER → 2021-10-03 13:43 | Outpatient (CLI) | payer MEDICARE, SELFPAY ==
--- NOTE | 2021-10-03 13:46 | US_ITS ---
STUDY: SCROTUM ULTRASOUND REASON FOR EXAM: Male, 76 years old. Groin pain. TECHNIQUE: Ultrasound evaluation of the scrotum was performed with color Doppler and static go-scale imaging. COMPARISON: None. FINDINGS: RIGHT TESTICLE INTRATESTICULAR: There is a normal size of the right testicle. The right testicle measures 3.4 cm x 2.7 cm x 1.9 cm. There is a heterogeneous echotexture. There is normal arterial and normal venous vascularity. There is no demonstrated right testicular mass or cyst. EXTRATESTICULAR: The epididymis is normal in size. The epididymis head measures 0.6 cm x 1 cm x 0.7 cm. There is normal vascularity of the epididymis. There is no demonstrated epididymal cystic structure. There is no demonstrated hydrocele. There is no demonstrated varicocele. There is no demonstrated extratesticular mass or cyst. LEFT TESTICLE INTRATESTICULAR: There is a normal size of the left testicle. The left testicle measures 3 cm x 2.2 cm x 1.8 cm. There is a heterogeneous echotexture. There is normal arterial and normal venous vascularity. There is no demonstrated left testicular mass or cyst. EXTRATESTICULAR: The epididymis is normal in size. The epididymis head measures 0.8 cm x 1.1 cm x 0.9 cm. There is normal vascularity of the epididymis. There is no demonstrated epididymal cystic structure. There is no demonstrated hydrocele. There is no demonstrated varicocele. There is no demonstrated extratesticular mass or cyst. Incidental note is made of a left inguinal hernia. US/Testicular with Arterial Flow IMPRESSION: Heterogeneous appearance of both testicles. Left-sided inguinal hernia. Electronically Signed: Abhishek Lemus MD at 15:29 EST , Service support ,
== END ==
PROVIDERS: PCP Family Medicine; Referring Provider Family Medicine; Visit Provider Family Medicine
DX: N50.819 Testicular pain, unspecified (principal); K40.90 Unilateral inguinal hernia, without obstruction or gangrene, not specified as recurrent
CPT/HCPCS: 76870; 93976

== ENCOUNTER → 2021-10-26 14:10 | Outpatient (CLI) | payer MEDICARE, SELFPAY ==
[2021-10-26 14:52] LABS: Absolute Lymphocyte Count 2.15 X10^3/uL (0.83-4.51); Absolute Neutrophil Count 4.6 X10^3/uL (2.0-7.7); Basophil# 0.11 X10^3/uL; Basophil% 1.4 % (0-1); Eosinophil# 0.51 X10^3/uL; Eosinophils% 6.3 % (0-5); Hematocrit 44.7 % (40-54); Hemoglobin 14.7 g/dL (13.0-16.5); Lymphocyte # 2.15 X10^3/ul (0.83-4.51); Lymphocyte % 26.4 % (19-41); Mean Corp Hgb Conc 32.9 g/dL (32-36); Mean Corpuscular Hgb 30.6 pg (27.0-32.0); Mean Corpuscular Volume 93.1 fL (80-94); Mean Platelet Vol. 9.2 fl (6.2-12.0); Monocyte# 0.73 X10^3/uL; NRBC Flagged by Analyzer 0 % (0-5); Neutrophil # 4.59 X10^3/uL (2.7-7.7); Neutrophil % 56.3 % (47-70); Platelet Count 216 K/mm3 (150-450); RBC Distribution Width CV 12.9 % (11.6-14.6); RBC Distribution Width SD 43.9 fl (35.1-43.9); White Blood Count 8.1 K/mm3 (4.4-11.0)
== END ==
PROVIDERS: PCP Family Medicine; Visit Provider Internal Medicine Pulmonary Disease
DX: J45.50 Severe persistent asthma, uncomplicated (principal)
CPT/HCPCS: 36415; 85025

== ENCOUNTER 2021-11-26 09:47 | Emergency (ER) | payer MEDICARE, SELFPAY ==
[2021-11-26] VITALS (8 sets, daily range): BP systolic 147–208; BP diastolic 75–87; PULSE 74–90; RESP 10–20; TEMP 36.6; O2SAT 94–99; BMI 35.6
--- NOTE | 2021-11-26 10:23 | EKG12_ITS ---
Test Reason : CP Blood Pressure : / mmHG Vent. Rate : 089 BPM Atrial Rate : 089 BPM P-R Int : 152 ms QRS Dur : 084 ms QT Int : 362 ms P-R-T Axes : 070 056 068 degrees QTc Int : 440 ms Normal sinus rhythm Nonspecific ST abnormality Abnormal ECG Confirmed by NASEEM LOVELL, ALISAI ([id number]), material expeditor KRYSTIN CORTÉS ([id number]) on 11/29/2021 10:35:08 AM Referred By: MIHAI Confirmed By:ALISIA GUSMAN MD
--- NOTE | 2021-11-26 10:25 | RAD_ITS ---
STUDY: X-RAY CHEST REASON FOR EXAM: Male, 76 years old. Chest pain TECHNIQUE: Single AP portable view of the chest. COMPARISON: 04/19/2021. FINDINGS: Mild hypoventilatory changes and elevation of the right hemidiaphragm. No focal infiltrate is seen. There is no demonstrated pleural abnormality. Normal size heart. Normal mediastinum and miguel. Normal visualized pulmonary arteries. There is atherosclerotic calcification of the aortic arch. No demonstrated acute osseous changes. There is no demonstrated abnormality of the visualized soft tissue structures of the upper abdomen. RAD/Chest 1 View (Portable) IMPRESSION: No active pulmonary disease. Electronically Signed: Willie Meneses, at 10:50 EST Tel , Service support ,
[2021-11-26 10:32] LABS: Absolute Lymphocyte Count 1.78 X10^3/uL (0.83-4.51); Absolute Neutrophil Count 3.1 X10^3/uL (2.0-7.7); Basophil# 0.06 X10^3/uL; Eosinophil# 0.27 X10^3/uL; Eosinophils% 4.7 % (0-5); Hematocrit 43.5 % (40-54); Hemoglobin 14.7 g/dL (13.0-16.5); Lymphocyte # 1.78 X10^3/ul (0.83-4.51); Lymphocyte % 31.1 % (19-41); Mean Corp Hgb Conc 33.8 g/dL (32-36); Mean Corpuscular Hgb 30.4 pg (27.0-32.0); Mean Corpuscular Volume 90.1 fL (80-94); Monocyte# 0.52 X10^3/uL; Monocyte% 9.1 % (0-10); NRBC Flagged by Analyzer 0 % (0-5); Neutrophil # 3.06 X10^3/uL (2.7-7.7); Neutrophil % 53.4 % (47-70); Platelet Count 208 K/mm3 (150-450); RBC Distribution Width CV 12.6 % (11.6-14.6); RBC Distribution Width SD 41.7 fl (35.1-43.9); Red Blood Count 4.83 M/mm3 (4.6-6.2); White Blood Count 5.7 K/mm3 (4.4-11.0)
[2021-11-26 10:44] LABS: Anion Gap 6 (5-15); BUN 16 mg/dL (7-18); BUN/Creat Ratio 14.2 RATIO (10-20); Calcium,Total 9.3 mg/dL (8.5-10.1); Chloride 110 mmol/L (98-107); Creatinine, Serum 1.13 mg/dL (0.70-1.30); EST Glomerular Filtration Rate 67 mL/min (>60); Est Glom Filt Rate - Afr Amer 82 mL/min (>60); Estimated Creatinine Clearance 59.22 ml/min; Glucose 91 mg/dL (74-106); Potassium 3.7 mmol/L (3.5-5.1); Sodium Level 142 mmol/L (136-145); Troponin-I HS 17 pg/mL (3.0-78.0)
[2021-11-26 10:46] LABS: D-Dimer Quantitative (DVT/PE) 3.29 FEU/ug/m (0.27-0.49)
[2021-11-26 10:51] LABS: BNP,B-Type NATRIURETIC PEPTIDE 30.3 pg/mL (0-100)
--- NOTE | 2021-11-26 10:55 | CT_ITS ---
STUDY: CTA CHEST REASON FOR EXAM: Male, 76 years old. Chest pain RADIATION DOSAGE (If Supplied By Facility): CTDIvol = ( 12.59 ) mGy, DLP = ( 487.19 ) mGycm TECHNIQUE: The examination was performed with the intravenous administration of IV 100mL Isovue-370. Post-processing of the angiographic images was performed, with multiplanar reformation and 3D reconstruction. Individualized dose optimization techniques were used for this CT. COMPARISON: None. FINDINGS: Normal enhancement of the main pulmonary artery and right and left pulmonary arteries. Normal enhancement of the bilateral peripheral pulmonary arteries. There is no demonstrated pulmonary embolism. There is atherosclerotic calcification of the aortic arch. There is no demonstrated aortic dissection. Normal heart and pericardium. Normal mediastinum. Normal hilar regions. Normal visualized trachea and bronchi. There are no pulmonary infiltrates. 5 mm right lower lobe nodule. There are no pleural effusions. Normal chest wall structures. No demonstrated acute osseous changes. No demonstrated acute process in the visualized upper abdomen. Status post cholecystectomy. CT/CTA Chest W/WO Contrast IMPRESSION: 1. No evidence of pulmonary embolism or aortic dissection. 2. No mass, adenopathy or focal acute infiltrate. 3. 5 mm right lower lobe nodule for which follow-up exam in one year is recommended. Electronically Signed: Willie Meneses, at 12:53 EST Tel , Service support ,
--- NOTE | 2021-11-26 10:55 | ED.VIS.DYS ---
HPI History of Present Illness Chief Complaint: Shortness of Breath Narrative Narrative: 76-year-old male presenting with chest pain which feels like burning. He admits to some dyspepsia. Patient has a history of GERD. He does not have chest pressure or sharp pleuritic chest pain. Patient admits to some shortness of breath as well. He describes is worse with ambulation. He has a history of asthma and is on 5 mg of prednisone daily. Patient states he had an asthma exacerbation about a month ago and was on a prednisone burst of 40 mg p.o. daily x4 days. Patient states he recently had his Covid booster shot and since then he has had this chest pain and shortness of breath. Patient denies fever, chills, nausea, vomiting. Patient has not had COVID-19 previously. Patient has no history of cardiac disease. He does have history of DVT but does not have history of PE. He states he believes his DVT was due to sedentary lifestyle. This was not provoked. Patient previously on blood thinners but is no longer on these. PFSH [facility] Medical History Asthma BPH (benign prostatic hyperplasia) Chest pain Crohn's disease Former smoker GERD (gastroesophageal reflux disease) History of DVT (deep vein thrombosis) IBS (irritable bowel syndrome) Sleep apnea Home Medications Breo Ellipta 1 ea IH DAILY 04/04/19 [History Last Taken 04/19/21 09:00] albuterol sulfate 1 puff INHALATION Q4H PRN PRN 11/30/19 [History Last Taken Unknown] bisacodyl 10 mg PO DAILY 04/19/21 [History Last Taken Unknown] mesalamine 2,400 mg PO DAILY 04/19/21 [History Last Taken 04/19/21] omeprazole 40 mg PO BID 04/19/21 [History Last Taken 04/19/21 16:00] polyethylene glycol 3350 17 g PO DAILY 04/19/21 [History Last Taken 04/19/21] prednisone 50 mg PO DAILY 5 Days #25 tab 11/26/21 [Rx Last Taken Unknown] Allergy/AdvReac Type Severity Reaction Status Date / Time adalimumab [From Humira] Allergy Mild itching Verified 11/26/21 09:50 ibuprofen AdvReac Upset Verified 11/26/21 09:50 Stomach Family History Mother CHF (congestive heart failure) Father Cancer unsure Surgical History History of colonoscopy (~06/2021) Hx of cholecystectomy Social History Smoking Status: Former smoker ROS ROS ED Constitutional Constitutional ED: Denies chills, fever(s) or sweats Eyes Eyes: Denies blurry vision or change in vision ENT ENT ED: Denies ear pain or sore throat Cardiovascular Cardiovascular: Reports chest pain; Denies palpitations or racing heartbeat Respiratory/Chest Respiratory/Chest: Reports dyspnea; Denies cough or sputum Gastrointestinal Gastrointestinal: Reports other Details: Dyspepsia ; Denies abdominal pain, constipation, diarrhea, nausea or vomiting Genitourinary Genitourinary ED: Denies dysuria, hematuria or urinary frequency Musculoskeletal Musculoskeletal: Denies arthralgias, myalgias or neck pain Integumentary Denies abscess, Abrasions or rash Neurologic Neurologic: Denies headache(s), paresthesias or weakness Psychiatric Psychiatric: Denies anxiety, depression, suicidal ideation or suicidal thoughts Endocrine Endocrinology: Denies polydipsia or polyuria EXAM Physical Exam Const Vital Signs: 11/26/21 09:48 11/26/21 09:50 11/26/21 09:56 Temperature 97.9 F 97.9 F Temperature Source Temporal Temporal Pulse Rate 90 90 Respiratory Rate 20 H 20 H Respiratory Effort Short of Breath Labored Respiratory Depth Normal Respiratory Pattern Blood Pressure 208/86 H 208/86 H Blood Pressure Mean 126 126 Pulse Ox 99 99 Oxygen Delivery Method Room Air Room Air Room Air 11/26/21 10:28 11/26/21 10:47 11/26/21 11:03 Temperature Temperature Source Pulse Rate 79 80 Respiratory Rate 16 Respiratory Effort Respiratory Depth Respiratory Pattern Normal Blood Pressure 147/87 H Blood Pressure Mean 107 Pulse Ox 95 96 Oxygen Delivery Method Room Air Room Air 11/26/21 12:00 Temperature Temperature Source Pulse Rate 81 Respiratory Rate 12 Respiratory Effort Respiratory Depth Respiratory Pattern Blood Pressure Blood Pressure Mean Pulse Ox 94 Oxygen Delivery Method Room Air Positive well nourished General Appearance ED: Negative for pallor HEENT Reports moist mucous membranes atraumatic Eyes PERRL and EOMs intact bilaterally Neck no lymphadenopathy and supple Resp normal respiratory effort Auscultation: wheezes scattered wheezes Cardio regular rhythm GI non-tender and non-distended Palpation: soft Neuro oriented x3 and CN's II-XII intact bilaterally Sensorium / Orientation: alert Psych mental status grossly normal Thought Process: normal thought process Skin General Skin Exam: Negative for jaundice or pallor Lesions: no lesions Rashes: no rashes MDM MDM MDM Narrative Medical decision making narrative: Patient presenting with dyspepsia, chest pain, shortness of breath. He is found to be having scattered wheezes on examination. He has a history of asthma. Was given Solu-Medrol and breathing treatments. EKG is obtained which shows a sinus rhythm at 89 bpm without sign of ischemic change. Chest x-ray on my interpretation shows no acute cardiopulmonary process and radiologist does agree. Patient CBC shows a white blood cell count of 5.7. Patient not lymphopenic or leukopenic. Hemoglobin hematocrit are stable. Renal function and electrolytes are normal. High-sensitivity troponin is 17. Delta troponin is 16 and therefore this is unlikely ACS. BNP is 30. Patient found to have elevated D-dimer at 3.29. CTA of the chest was negative except for 5 mm pulmonary nodule which needs follow-up in 1 year. Patient's wheezing is improved after treatments. We will send him home with a prednisone burst since his work-up is ultimately negative. Impression: 1. Pulmonary nodule 2. Asthma exacerbation 3. Chest pain noncardiac Lab Data Attestation: I reviewed the patient's lab results. Labs: Laboratory Results - last 24 hr 11/26/21 11/26/21 11/26/21 10:05 10:05 10:05 WBC 5.7 RBC 4.83 Hgb 14.7 Hct 43.5 MCV 90.1 MCH 30.4 MCHC 33.8 RDW Std Deviation 41.7 RDW Coeff of Sandra 12.6 Plt Count 208 MPV 10.0 Immature Gran % (Auto) 0.700 Neut % (Auto) 53.4 Lymph % (Auto) 31.1 [place] % (Auto) 9.1 Eos % (Auto) 4.7 Baso % (Auto) 1.0 Absolute Neuts (auto) 3.1 Absolute Lymphs (auto) 1.78 Nucleated RBC % 0 D-Dimer Quant (PE/DVT) 3.29 H* Sodium 142 Potassium 3.7 Chloride 110 H Carbon Dioxide 26.0 Anion Gap 6 BUN 16 Creatinine 1.13 Estim Creat Clear Calc 59.22 Est GFR (MDRD) Af Amer 82 Est GFR (MDRD) Non-Af 67 BUN/Creatinine Ratio 14.2 Glucose 91 Calcium 9.3 Troponin I High Sens 17 B-Natriuretic Peptide 11/26/21 11/26/21 10:05 12:05 WBC RBC Hgb Hct MCV MCH MCHC RDW Std Deviation RDW Coeff of Sandra Plt Count MPV Immature Gran % (Auto) Neut % (Auto) Lymph % (Auto) [place] % (Auto) Eos % (Auto) Baso % (Auto) Absolute Neuts (auto) Absolute Lymphs (auto) Nucleated RBC % D-Dimer Quant (PE/DVT) Sodium Potassium Chloride Carbon Dioxide Anion Gap BUN Creatinine Estim Creat Clear Calc Est GFR (MDRD) Af Amer Est GFR (MDRD) Non-Af BUN/Creatinine Ratio Glucose Calcium Troponin I High Sens 16 B-Natriuretic Peptide 30.3 Radiography Diagnostic Testing: Clinical Impression(s) from Imaging Studies Chest X-Ray 11/26/21 10:25 IMPRESSION: No active pulmonary disease. Electronically Signed: Willie Gideon, at 10:50 EST Tel , Service support , Chest CTA 11/26/21 10:55 IMPRESSION: 1. No evidence of pulmonary embolism or aortic dissection. 2. No mass, adenopathy or focal acute infiltrate. 3. 5 mm right lower lobe nodule for which follow-up exam in one year is recommended. Electronically Signed: Willie Meneses, at 12:53 EST Tel , Service support , Discharge Plan Triage Chief Complaint: Shortness of Breath ED Provider: Rudolph Bernal Dx/Rx/DC Orders Instructions: ED Asthma, Acute (Adult), ED Chest Pain, Noncardiac Prescriptions: New prednisone 10 mg tablet 50 mg PO DAILY 5 Days Qty: 25 RF: 0 No Action Breo Ellipta 1 EACH blister with device 1 ea IH DAILY RF: 0 albuterol sulfate 2.5 MG/3ML solution for nebulization 1 puff inhalation Q4H PRN PRN (Reason: Sob &/Or Wheezing) RF: 0 polyethylene glycol 3350 17 gram Powder In Packet 17 g PO DAILY RF: 0 omeprazole 40 mg Capsule,Delayed Release(Dr/Ec) 40 mg PO BID RF: 0 bisacodyl 5 mg Tablet 10 mg PO DAILY RF: 0 mesalamine 400 mg Capsule,Delayed Release(Dr/Ec) 2,400 mg PO DAILY RF: 0 Primary Care Provider: Cale Raymundo Referrals: Cale Raymundo MD [Primary Care Provider] - Disposition Disposition: Home, Self Care
[2021-11-26] MEDS: Ipratropium/Albuterol Sulfate 3 ML AMPUL.NEB INHALATION (11:02)
[2021-11-26] MEDS: Albuterol 2.5 MG/3 ML VIAL.NEB. INHALATION (11:02)
[2021-11-26] MEDS: MethylPREDNISolone 125 MG/2 ML Vial IV (11:39)
[2021-11-26 12:28] LABS: Troponin-I HS 16 pg/mL (3.0-78.0)
== END 2021-11-26 13:37 | disposition home or self-care (01) ==
PROVIDERS: Emergency Provider Student in an Organized Health Care Education/Training Program; PCP Family Medicine; Visit Provider Student in an Organized Health Care Education/Training Program
DX: J45.901 Unspecified asthma with (acute) exacerbation (principal); K50.90 Crohn's disease, unspecified, without complications; R91.1 Solitary pulmonary nodule; R07.89 Other chest pain; R06.02 Shortness of breath; K21.9 Gastro-esophageal reflux disease without esophagitis; Z79.899 Other long term (current) drug therapy; Z86.718 Personal history of other venous thrombosis and embolism; Z87.891 Personal history of nicotine dependence
CPT/HCPCS: 71045; 71275; 80048; 83880; 84484; 85025; 85379; 87426; 93005; 94640; 96374; 99285; Q9967; A4216

== ENCOUNTER 2021-12-26 13:01 | Emergency (ER) | payer OTHER, SELFPAY ==
[2021-12-26 13:02] VITALS: BP 186/72; PULSE 99; RESP 18; TEMP 36; O2SAT 99; BMI 35.9
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
[2021-12-26] MEDS: Diphth,Pertuss(Acell),Tet Vac 0.5 ML Vial IM (14:25)
[2021-12-26] MEDS: Lidocaine 1% (20 ml mdv) 20 ML Vial 8 ML INFILT (14:25)
== END 2021-12-26 23:59 | disposition home or self-care (01) ==
PROVIDERS: Emergency Provider Emergency Medicine; PCP Family Medicine; Visit Provider Emergency Medicine
DX: S51.812A Laceration without foreign body of left forearm, initial encounter (principal); W26.8XXA Contact with other sharp object(s), not elsewhere classified, initial encounter; Y93.89 Activity, other specified; Y99.8 Other external cause status; Y92.818 Other transport vehicle as the place of occurrence of the external cause; J45.909 Unspecified asthma, uncomplicated; K21.9 Gastro-esophageal reflux disease without esophagitis; K58.9 Irritable bowel syndrome, unspecified; Z79.51 Long term (current) use of inhaled steroids; Z79.899 Other long term (current) drug therapy; Z87.891 Personal history of nicotine dependence
CPT/HCPCS: 12002; 90471; 90715; 99285

== ENCOUNTER 2022-01-31 12:11 | Outpatient (CLI) | payer OTHER, MEDICARE, SELFPAY ==
--- NOTE | 2022-01-31 12:31 | RAD_ITS ---
STUDY: X-RAY CHEST REASON FOR EXAM: Male, 76 years old. ASTHMA TECHNIQUE: PA and lateral views of the chest. COMPARISON: 11/26/2021 FINDINGS: Status post right axillary lymph node dissection. The lungs are clear and expanded. There is no demonstrated pleural abnormality. Normal size heart. Normal mediastinum and miguel. Normal visualized pulmonary arteries. Normal visualized aortic arch and descending thoracic aorta. Normal visualized thoracic spine. Normal visualized ribs, clavicles, and shoulders. There is no demonstrated abnormality of the visualized soft tissue structures of the upper abdomen. RAD/Chest PA and Lateral IMPRESSION: Normal x-ray examination of the chest. Electronically Signed: Tomás Murphy MD at 13:52 EST ,
[2022-01-31 15:07] LABS: Absolute Neutrophil Count 5.1 X10^3/uL (2.0-7.7); Basophil% 1.4 % (0-1); Eosinophil# 0.26 X10^3/uL; Eosinophils% 3.5 % (0-5); Hematocrit 44.7 % (40-54); Hemoglobin 14.9 g/dL (13.0-16.5); Mean Corp Hgb Conc 33.3 g/dL (32-36); Mean Corpuscular Hgb 31.4 pg (27.0-32.0); Mean Corpuscular Volume 94.1 fL (80-94); Monocyte# 0.75 X10^3/uL; Monocyte% 10.2 % (0-10); NRBC Flagged by Analyzer 0 % (0-5); Neutrophil # 5.07 X10^3/uL (2.7-7.7); Neutrophil % 69.2 % (47-70); Platelet Count 218 K/mm3 (150-450); RBC Distribution Width CV 13.1 % (11.6-14.6); RBC Distribution Width SD 45.1 fl (35.1-43.9); Red Blood Count 4.75 M/mm3 (4.6-6.2); White Blood Count 7.3 K/mm3 (4.4-11.0)
[2022-01-31 15:35] LABS: ALB/GLOB Ratio 1.1 RATIO (0.9-2.4); AST(SGOT) 24 U/L (15-37); Alanine Aminotransfer ALT/SGPT 44 U/L (16-61); Albumin, Serum 3.8 g/dL (3.2-5.0); Alkaline Phosphatase 112 U/L (45-117); Anion Gap 6 (5-15); BUN 21 mg/dL (7-18); BUN/Creat Ratio 19.8 RATIO (10-20); Calcium,Total 8.9 mg/dL (8.5-10.1); Chloride 108 mmol/L (98-107); Creatinine, Serum 1.06 mg/dL (0.70-1.30); EST Glomerular Filtration Rate 73 mL/min (>60); Est Glom Filt Rate - Afr Amer 88 mL/min (>60); Ferritin 49 ng/mL (26-388); Globulin 3.6 g/dL (2.2-4.2); Glucose 71 mg/dL (74-106); Magnesium 2.5 mg/dL (1.6-2.6); Potassium 3.9 mmol/L (3.5-5.1); Protein, Total 7.4 g/dL (6.4-8.2); Sodium Level 140 mmol/L (136-145); Thyroid Stim Hormone (TSH) 1.89 uIU/mL (0.358-3.74)
== END 2022-01-31 23:59 | disposition home or self-care (01) ==
PROVIDERS: PCP Family Medicine; Referring Provider Family Medicine; Visit Provider Family Medicine
DX: J45.909 Unspecified asthma, uncomplicated (principal); R25.2 Cramp and spasm
CPT/HCPCS: 36415; 71046; 80053; 82728; 83735; 84443; 85025

== ENCOUNTER 2022-02-16 08:50 | Outpatient (CLI) | payer MEDICARE, SELFPAY ==
--- NOTE | 2022-02-16 08:53 | RAD_ITS ---
STUDY: X-RAY - ESOPHAGUS (BARIUM SWALLOW) WITH FLUOROSCOPY REASON FOR EXAM: Male, 76 years old. His anchors diverticulum follow-up. Dysphagia. TECHNIQUE: 17 view(s) of the esophagus were obtained following swallowing of barium. FLUOROSCOPY TIME (if supplied): (27 seconds) minutes/seconds COMPARISON: None. FINDINGS: There is no demonstrated esophageal foreign body. There is evidence of a 7 mm x 5 mm is increased diverticulum in the proximal portion of the esophagus. Normal gastroesophageal junction, without a demonstrated hiatal hernia. There is atherosclerotic calcification of the aortic arch with tortuosity of the descending aorta. Normal visualized pulmonary parenchyma. Normal visualized osseous structures of the thorax. RAD/Esophagus Dual Contrast IMPRESSION: 7 mm x 5 mm Zenker''s diverticulum in the proximal esophagus. This is enlarged as compared to prior study. Electronically Signed: Abhishek Lemus MD at 9:53 EDT ,
== END 2022-02-16 23:59 | disposition home or self-care (01) ==
LOC: RAD 08:52
PROVIDERS: PCP Family Medicine; Referring Provider Otolaryngology; Visit Provider Otolaryngology
DX: K22.9 Disease of esophagus, unspecified (principal)
CPT/HCPCS: 74221

== ENCOUNTER 2022-03-29 12:26 | Emergency (ER) | payer OTHER, SELFPAY ==
[2022-03-29 12:27] VITALS: BP 135/85; PULSE 104; RESP 24; TEMP 36.1; O2SAT 98; BMI 36.2
[2022-03-29 13:55] VITALS: BP 156/82; PULSE 71; RESP 18; TEMP 36.7; O2SAT 99
--- NOTE | 2022-03-29 14:18 | RAD_ITS ---
STUDY: X-RAY - SOFT TISSUE NECK REASON FOR EXAM: Male, 76 years old. Gagging TECHNIQUE: 2 view(s) of the neck were obtained. COMPARISON: None. FINDINGS: Normal visualized nasopharynx, oropharynx, hypopharynx. Normal epiglottis. Normal visualized subglottic tracheal air column. Normal prevertebral soft tissue structures. There are degenerative changes of the cervical spine with cervical spondylosis. There is no demonstrated radiopaque foreign body. There are atherosclerotic calcifications of the carotid arteries. RAD/Neck for Soft Tissue IMPRESSION: No acute abnormality is seen. Electronically Signed: Abhishek Lemus MD at 15:04 EDT ,
[2022-03-29 14:26] VITALS: BP 158/72; PULSE 71; RESP 18; O2SAT 98
[2022-03-29] MEDS: Morphine 4 MG/ML Syringe IM (14:36)
[2022-03-29 15:52] VITALS: BP 158/72; PULSE 72; O2SAT 98
--- NOTE | 2022-03-29 16:13 | ED.VIS.GI ---
HPI HPI - GI History of Present Illness Chief Complaint: Other, Pain/Inj Narrative Narrative: 76-year-old male presenting with throat pain. He states he had surgery with Dr. Lofton earlier this week at [facility] and states that he tried to operate on a Zenker diverticulum and some ulcerations in the throat. Patient states that he failed miserably. He was on [place] initially but states he had trouble swallowing the pills and then after calling the doctor's office today he was given hydrocodone syrup which he states he gagged on immediately after trying to swallow it. He has been having difficulty eating but has been able to eat yogurt at home. He states that yogurt is usually ending the pills. He does believe that the liquid was difficult for him to swallow. He does not have any shortness of breath. He states that he is constantly bringing up secretions however. [facility] Medical History Asthma BPH (benign prostatic hyperplasia) Chest pain Crohn's disease Former smoker GERD (gastroesophageal reflux disease) History of DVT (deep vein thrombosis) IBS (irritable bowel syndrome) Sleep apnea Zenkers diverticulum Home Medications Breo Ellipta 1 ea IH DAILY 04/04/19 [History Last Taken 04/19/21 09:00] albuterol sulfate 1 puff INHALATION Q4H PRN PRN 11/30/19 [History Last Taken Unknown] bisacodyl 10 mg PO DAILY 04/19/21 [History Last Taken Unknown] mesalamine 2,400 mg PO DAILY 04/19/21 [History Last Taken 04/19/21] omeprazole 40 mg PO BID 04/19/21 [History Last Taken 04/19/21 16:00] polyethylene glycol 3350 17 g PO DAILY 04/19/21 [History Last Taken 04/19/21] hydrocodone-acetaminophen 1 tab PO Q6H PRN 3 Days #12 tab 03/29/22 [Rx Last Taken Unknown] Allergy/AdvReac Type Severity Reaction Status Date / Time adalimumab [From Humira] Allergy Mild itching Verified 12/26/21 13:03 ibuprofen AdvReac Upset Verified 12/26/21 13:03 Stomach Family History Mother CHF (congestive heart failure) Father Cancer unsure Surgical History History of colonoscopy (~06/2021) Hx of cholecystectomy Social History Smoking Status: Former smoker ROS ROS ED Constitutional Constitutional ED: Denies chills or fever(s) ENT ENT ED: Reports sore throat; Denies rhinorrhea Cardiovascular Cardiovascular: Denies chest pain or palpitations Respiratory/Chest Respiratory/Chest: Denies cough or dyspnea Gastrointestinal Gastrointestinal: Denies abdominal pain, nausea or vomiting Genitourinary Genitourinary ED: Denies dysuria or hematuria Musculoskeletal Musculoskeletal: Denies arthralgias or myalgias Integumentary Denies abscess or rash Neurologic Neurologic: Denies headache(s) or weakness Psychiatric Psychiatric: Denies anxiety or depression EXAM Physical Exam Const Vital Signs: 03/29/22 12:27 03/29/22 13:52 03/29/22 13:55 Temperature 97 F L 98.0 F Temperature Source Temporal Temporal Pulse Rate 104 H 71 Respiratory Rate 24 H 18 Respiratory Effort Normal Non-Labored Respiratory Pattern Normal Blood Pressure 135/85 H 156/82 H Blood Pressure Mean 101 106 Pulse Ox 98 99 Oxygen Delivery Method Room Air Room Air 03/29/22 14:26 03/29/22 15:52 Temperature Temperature Source Pulse Rate 71 72 Respiratory Rate 18 Respiratory Effort Respiratory Pattern Blood Pressure 158/72 H 158/72 H Blood Pressure Mean 100 Pulse Ox 98 98 Oxygen Delivery Method Room Air Positive well nourished General Appearance ED: NAD; Negative for pallor HEENT Reports moist mucous membranes HEENT Narrative: No stridor. Airway patent. Tolerating his own secretions. No crepitance palpated throughout the throat and neck. normocephalic and atraumatic Eyes PERRL and EOMs intact bilaterally Neck no lymphadenopathy and supple Cardio regular rate and regular rhythm GI non-tender and non-distended Auscultation: normoactive bowel sounds Palpation: soft Neuro CN's II-XII intact bilaterally, moves all extremities and no sensory deficits noted Sensorium / Orientation: oriented to person, oriented to place and oriented to time Psych mental status grossly normal and thought process normal Skin General Skin Exam: Negative for jaundice or pallor Lesions: no lesions Rashes: no rashes MDM MDM MDM Narrative Medical decision making narrative: Patient given a shot of IM morphine for pain and this did significantly help his pain. I obtained a soft tissue x-ray of the neck which on my interpretation shows no acute abnormality. The radiologist agree. I do have concern that the patient's liquid hydrocodone which is a very thin liquid was difficult to him to swallow. I do not believe it was allergic because he is taking [place] pills. He states that the pills are hard to swallow but not as hard as a liquid. He states that he has 3 pills left and has a whole bottle of hydrocodone liquid. He will be given a prescription for [place] for when his 3 pills are finished. I did recommend that he try and mix his liquid hydrocodone with something thicker so that he can swallow with ease. He states he can mix it with yogurt as he has been tolerating this. If he cannot tolerate this he can tolerate pills and will be given a prescription to use as needed. He will follow-up with surgery. Impression: 1. Postop wound check?pain Lab Data Attestation: I reviewed the patient's lab results. Radiography Diagnostic Testing: Clinical Impression(s) from Imaging Studies Soft Tissue Neck X-Ray 03/29/22 14:18 IMPRESSION: No acute abnormality is seen. Electronically Signed: Abhishek Lemus MD at 15:04 EDT , Discharge Plan Triage Chief Complaint: Other, Pain/Inj ED Provider: Rudolph Bernal Dx/Rx/DC Orders Instructions: ED Post Op Wound Check, General Prescriptions: New hydrocodone-acetaminophen 5-325 mg tablet 1 tab PO Q6H PRN (Reason: pain) 3 Days Qty: 12 RF: 0 No Action Breo Ellipta 1 EACH blister with device 1 ea IH DAILY RF: 0 albuterol sulfate 2.5 MG/3ML solution for nebulization 1 puff inhalation Q4H PRN PRN (Reason: Sob &/Or Wheezing) RF: 0 polyethylene glycol 3350 17 gram Powder In Packet 17 g PO DAILY RF: 0 omeprazole 40 mg Capsule,Delayed Release(Dr/Ec) 40 mg PO BID RF: 0 bisacodyl 5 mg Tablet 10 mg PO DAILY RF: 0 mesalamine 400 mg Capsule,Delayed Release(Dr/Ec) 2,400 mg PO DAILY RF: 0 Primary Care Provider: Cale Raymundo Referrals: Cale Raymundo MD [Primary Care Provider] - Disposition Disposition: Home, Self Care Discharge Date/Time: 03/29/22 15:53
== END 2022-03-29 15:53 | disposition home or self-care (01) ==
PROVIDERS: Emergency Provider Student in an Organized Health Care Education/Training Program; PCP Family Medicine; Visit Provider Student in an Organized Health Care Education/Training Program
DX: R07.0 Pain in throat (principal); K50.90 Crohn's disease, unspecified, without complications; G89.18 Other acute postprocedural pain; J45.909 Unspecified asthma, uncomplicated; K21.9 Gastro-esophageal reflux disease without esophagitis; Z79.899 Other long term (current) drug therapy; Z87.891 Personal history of nicotine dependence
CPT/HCPCS: 70360; 96372; 99285

== ENCOUNTER → 2022-08-08 | Outpatient (CLI) | payer MEDICARE, SELFPAY | END | disposition home or self-care (01) | PROVIDERS: PCP Family Medicine; Visit Provider Family Medicine | DX: R39.9 Unspecified symptoms and signs involving the genitourinary system (principal) | CPT/HCPCS: 87086 ==

== ENCOUNTER 2022-10-12 18:41 | Emergency (ER) | payer MEDICARE, SELFPAY ==
--- NOTE | 2022-10-12 18:40 | EKG12_ITS ---
Test Reason : CP Blood Pressure : / mmHG Vent. Rate : 081 BPM Atrial Rate : 081 BPM P-R Int : 150 ms QRS Dur : 084 ms QT Int : 366 ms P-R-T Axes : 051 065 064 degrees QTc Int : 425 ms Normal sinus rhythm Normal ECG Confirmed by JOHN LOVELL, JERICA ([id number]), video editor PHOENIX RÍOS ([id number]) on 10/16/2022 7:29:29 AM Referred By: KENYATTA Confirmed By:JERICA LOPEZ MD
[2022-10-12 18:42] VITALS: BP 173/84; PULSE 91; RESP 18; TEMP 36.2; O2SAT 97; BMI 36.3
--- NOTE | 2022-10-12 18:58 | EDS_ITS ---
HPI <KEILY Javed - Last Filed: 10/12/22 20:58> History of Present Illness Chief Complaint: Chest Pain Narrative Narrative: 77-year-old male with history of Crohn's disease, asthma, acid reflux, irritable bowel syndrome presents to the emergency department with ongoing chest pain. Patient states that this chest pain is chronic however he has been under a great deal of stress and is here to rule out anything wrong with his heart. Patient's lost his twin brother 3 days ago, patient is dealing with the , patient states that he is having periods of uncontrollable crying, stress. He states that his chest pain has been getting worse secondary to the stress and he is here for evaluation. He denies any diaphoresis, shortness of breath. Patient states he has had this chest pain before and usually acid reflux however he is just nervous because of all the stress he is under. PFS <KEILY Javed - Last Filed: 10/12/22 20:58> [facility] Medical History Asthma BPH (benign prostatic hyperplasia) Chest pain Crohn's disease Former smoker GERD (gastroesophageal reflux disease) History of DVT (deep vein thrombosis) IBS (irritable bowel syndrome) Sleep apnea Zenkers diverticulum Home Medications fluticasone furoate 200 mcg-vilanterol 25 mcg/dose inhalation powder (Breo Ellipta) 1 ea IH DAILY 04/04/19 [History Last Taken 04/19/21 09:00] albuterol sulfate 2.5 mg/3 mL (0.083 %) solution for nebulization 1 puff inhalation Q4H PRN PRN Sob &/Or Wheezing 11/30/19 [History Last Taken Unknown] bisacodyl 5 mg tablet 10 mg PO DAILY constipation 04/19/21 [History Last Taken Unknown] mesalamine 400 mg capsule,delayed release 2,400 mg PO DAILY Crohns 04/19/21 [History Last Taken 04/19/21] omeprazole 40 mg capsule,delayed release 40 mg PO BID reflux 04/19/21 [History Last Taken 04/19/21 16:00] polyethylene glycol 3350 17 gram oral powder packet 17 g PO DAILY constipation 04/19/21 [History Last Taken 04/19/21] hydrocodone-acetaminophen 5-325mg 5mg-325mg 1 tab PO Q6H PRN pain 3 days #12 tabs 03/29/22 [Rx Last Taken Unknown] Allergy/AdvReac Type Severity Reaction Status Date / Time adalimumab [From Humira] Allergy itching Verified 10/12/22 18:42 ibuprofen AdvReac Upset Verified 10/12/22 18:42 Stomach Family History Mother CHF (congestive heart failure) Father Cancer unsure Surgical History History of colonoscopy (~06/2021) Hx of cholecystectomy Social History Smoking Status: Former smoker ROS <KEILY Javed - Last Filed: 10/12/22 20:58> ROS ED ROS Narrative Constitutional: Negative for fever, chills, weight loss, weakness Eyes: Negative for vision loss, vision change, double vision ENT: Negative for any sore throat, ear pain, congestion Cardiovascular: Negative for any tightness, palpitations. Positive chest pain Respiratory: Negative for any cough, sputum production, hemoptysis, dyspnea, dyspnea on exertion, orthopnea Gastrointestinal: Negative for any abdominal pain, nausea, vomiting, diarrhea, constipation, blood in stool, blood in vomit. Positive epigastric pain : Negative for any urinary frequency, dysuria, retention, blood in urine Muscle skeletal: Negative for any muscle joint pain, stiffness, myalgias, arthralgias, neck pain, back pain Neurological: Negative for any headache, syncope, numbness or tingling, dizziness Skin: Negative for any rashes, lumps, itching, abrasions, lacerations Psychiatric: Negative for any depression, anxiety, stress, suicidal ideation, homicidal ideation Hematologic: Negative for any easy bruising, excessive bruising, easy bleeding Allergies: Negative for any eczema, hives, rash EXAM <KEILY Javed - Last Filed: 10/12/22 20:58> Physical Exam Narrative Exam Narrative: Vital signs reviewed. HEET: Head normocephalic atraumatic, TMs clear bilaterally. Posterior pharynx is clear, moist mucous membranes. Nares clear bilaterally. Neck: Supple with no lymphadenopathy or tenderness. No signs of meningismus, negative jolt sign. Cardiac: Regular rate and rhythm no murmurs gallops or rubs, equal peripheral pulses bilaterally. Respiratory: Lungs clear to auscultation bilaterally, slight expiratory wheeze the lower lobe on the left. No chest tenderness. Abdomen: Soft, nontender, nondistended. No abdominal bruit or pulsatile masses. No hepatosplenomegaly Extremities: No peripheral edema, no signs of gross trauma or deformity. Active full range of motion of all extremities. Neuro: Cranial nerves II through XII intact, no focal neurological deficits. Skin: Clean dry and intact with no rash, purpura, petechiae, vesicles or pustules. Backs/flank: No CVA tenderness, no midline spinal tenderness, no deformity. Psych: Normal mood and affect. No SI, HI or acute psychosis. Const Vital Signs: 10/12/22 18:42 10/12/22 19:05 10/12/22 19:48 Temperature 97.1 F L Temperature Source Temporal Pulse Rate 91 79 Respiratory Rate 18 12 Blood Pressure 173/84 H 134/64 H Blood Pressure Mean 113 87 Pulse Ox 97 99 98 Oxygen Delivery Method Room Air Room Air Room Air 10/12/22 20:03 10/12/22 21:13 Temperature Temperature Source Pulse Rate 78 73 Respiratory Rate 11 L 9 L Blood Pressure 134/64 H 121/67 H Blood Pressure Mean 87 85 Pulse Ox 98 100 Oxygen Delivery Method Room Air Room Air <Dr. Camilo Ge DO - Last Filed: 10/12/22 21:44> Physical Exam Const Vital Signs: 10/12/22 18:42 10/12/22 19:05 10/12/22 19:48 Temperature 97.1 F L Temperature Source Temporal Pulse Rate 91 79 Respiratory Rate 18 12 Blood Pressure 173/84 H 134/64 H Blood Pressure Mean 113 87 Pulse Ox 97 99 98 Oxygen Delivery Method Room Air Room Air Room Air 10/12/22 20:03 10/12/22 21:13 Temperature Temperature Source Pulse Rate 78 73 Respiratory Rate 11 L 9 L Blood Pressure 134/64 H 121/67 H Blood Pressure Mean 87 85 Pulse Ox 98 100 Oxygen Delivery Method Room Air Room Air MDM <KEILY Javed - Last Filed: 10/12/22 20:58> [facility] Lab Data Labs: Laboratory Results - last 24 hr 10/12/22 10/12/22 10/12/22 18:50 18:50 18:50 WBC 8.3 RBC 4.70 Hgb 14.5 Hct 44.6 MCV 94.9 H MCH 30.9 MCHC 32.5 RDW Std Deviation 45.2 H RDW Coeff of Sandra 12.9 Plt Count 206 MPV 9.8 Immature Gran % (Auto) 0.800 Neut % (Auto) 70.7 H Lymph % (Auto) 19.1 Whitfield % (Auto) 8.9 Eos % (Auto) 0.0 Baso % (Auto) 0.5 Absolute Neuts (auto) 5.8 Absolute Lymphs (auto) 1.58 Nucleated RBC % 0 D-Dimer Quant (PE/DVT) Sodium 144 Potassium 4.1 Chloride 110 H Carbon Dioxide 26.0 Anion Gap 8 BUN 21 H Creatinine 1.10 Estim Creat Clear Calc 59.91 Est GFR (MDRD) Af Amer 84 Est GFR (MDRD) Non-Af 69 BUN/Creatinine Ratio 19.1 Glucose 108 H Calcium 9.0 Total Bilirubin 0.40 Direct Bilirubin 0.16 AST 26 ALT 53 Alkaline Phosphatase 97 Troponin I High Sens 16 B-Natriuretic Peptide 23.1 Total Protein 7.3 Albumin 3.7 Globulin 3.6 Lipase 65 L 10/12/22 10/12/22 19:27 21:14 WBC RBC Hgb Hct MCV MCH MCHC RDW Std Deviation RDW Coeff of Sandra Plt Count MPV Immature Gran % (Auto) Neut % (Auto) Lymph % (Auto) Whitfield % (Auto) Eos % (Auto) Baso % (Auto) Absolute Neuts (auto) Absolute Lymphs (auto) Nucleated RBC % D-Dimer Quant (PE/DVT) 0.56 H* Sodium Potassium Chloride Carbon Dioxide Anion Gap BUN Creatinine Estim Creat Clear Calc Est GFR (MDRD) Af Amer Est GFR (MDRD) Non-Af BUN/Creatinine Ratio Glucose Calcium Total Bilirubin Direct Bilirubin AST ALT Alkaline Phosphatase Troponin I High Sens 17 B-Natriuretic Peptide Total Protein Albumin Globulin Lipase Radiography Diagnostic Testing: Clinical Impression(s) from Imaging Studies Chest X-Ray 10/12/22 19:15 IMPRESSION: No acute disease. Electronically Signed: Otis Moulton MD at 19:34 EST , Treatment and Re-Evaluation Narrative: Patient appears well, patient appears nontoxic, vital signs are stable. Patient presents to the emergency department with complaints of chest pain that is chronic for him however over the last few days, he has been very stressed and he is concerned. Patient did receive a full cardiac work-up. Patient's CBC was unremarkable, patient's chemistries were unremarkable, patient's troponin was 16 which is negative, repeat will be drawn. Patient did receive a D-dimer, this was 0.56, with age adjustment, this is negative. He did receive a two-view chest x-ray, this was negative for any acute process, patient's EKG shows normal sinus rhythm. There is no indication of any ACS, NC, PE. Patient will receive a second troponin. If this is negative he will be able to be discharged. He will be instructed to return for any worsening symptoms. He is instructed to follow-up with his PCP. <Dr. Camilo Ge, DO - Last Filed: 10/12/22 21:44> [facility] Narrative Medical decision making narrative: I have personally performed a face to face assessment of the patient and have reviewed the ALEXSANDER Note. I performed a substantive portion of the visit including all aspects of the following. My gardner findings include: History is [patient presents with chest discomfort off and on over the last several days. Patient states that his twin brother 2 nights ago and he has been very upset. Patient developed chest pain when he found out his brother . Patient had more chest pain at the weight yesterday. Chest pain just would not go away and seemed different than his heartburn so he comes in for evaluation. Patient also has had some aching in his legs and his sister told him to get checked for blood clots. Patient has no history of PE or DVT. Patient with no history of coronary artery disease. Pain really does not seem to radiate anywhere. He just describes a pain in the center of his chest. He denies shortness of breath.] Exam is [HEENT-PERRLA, EOMI. Cranial nerves II through XII grossly intact. TMs clear. Mucous membranes moist. No adenopathy. Cardiovascular-regular rate and rhythm without murmur or ectopy Lungs-clear to auscultation, chest wall stable without crepitus or subcu emphysema Abdomen-normoactive bowel sounds, soft, nontender, no rebound or rigidity, no peritoneal signs. Extremities-intact ?4, normal range of motion, normal pulses, atraumatic] Medical Decison Making [patient's work-up essentially unremarkable. Patient had a normal initial troponin followed by a normal delta troponin. His D-dimer also was normal.] Do not feel he is having acute coronary syndrome. His heart score is a 2. I feel he safe for discharge. Patient to follow-up with his primary care physician in 3 to 5 days as needed. Other additions or changes: [None] Lab Data Labs: Laboratory Results - last 24 hr 10/12/22 10/12/22 10/12/22 18:50 18:50 18:50 WBC 8.3 RBC 4.70 Hgb 14.5 Hct 44.6 MCV 94.9 H MCH 30.9 MCHC 32.5 RDW Std Deviation 45.2 H RDW Coeff of Sandra 12.9 Plt Count 206 MPV 9.8 Immature Gran % (Auto) 0.800 Neut % (Auto) 70.7 H Lymph % (Auto) 19.1 Whitfield % (Auto) 8.9 Eos % (Auto) 0.0 Baso % (Auto) 0.5 Absolute Neuts (auto) 5.8 Absolute Lymphs (auto) 1.58 Nucleated RBC % 0 D-Dimer Quant (PE/DVT) Sodium 144 Potassium 4.1 Chloride 110 H Carbon Dioxide 26.0 Anion Gap 8 BUN 21 H Creatinine 1.10 Estim Creat Clear Calc 59.91 Est GFR (MDRD) Af Amer 84 Est GFR (MDRD) Non-Af 69 BUN/Creatinine Ratio 19.1 Glucose 108 H Calcium 9.0 Total Bilirubin 0.40 Direct Bilirubin 0.16 AST 26 ALT 53 Alkaline Phosphatase 97 Troponin I High Sens 16 B-Natriuretic Peptide 23.1 Total Protein 7.3 Albumin 3.7 Globulin 3.6 Lipase 65 L 10/12/22 10/12/22 19:27 21:14 WBC RBC Hgb Hct MCV MCH MCHC RDW Std Deviation RDW Coeff of Sandra Plt Count MPV Immature Gran % (Auto) Neut % (Auto) Lymph % (Auto) Whitfield % (Auto) Eos % (Auto) Baso % (Auto) Absolute Neuts (auto) Absolute Lymphs (auto) Nucleated RBC % D-Dimer Quant (PE/DVT) 0.56 H* Sodium Potassium Chloride Carbon Dioxide Anion Gap BUN Creatinine Estim Creat Clear Calc Est GFR (MDRD) Af Amer Est GFR (MDRD) Non-Af BUN/Creatinine Ratio Glucose Calcium Total Bilirubin Direct Bilirubin AST ALT Alkaline Phosphatase Troponin I High Sens 17 B-Natriuretic Peptide Total Protein Albumin Globulin Lipase Radiography Chest X-Ray - ED: 1 View Diagnostic Testing: Clinical Impression(s) from Imaging Studies Chest X-Ray 10/12/22 19:15 IMPRESSION: No acute disease. Electronically Signed: Otis Moulton MD at 19:34 EST , 1 view chest x-ray obtained interpreted by myself no acute disease process. Radiology in agreement. EKG Initial EKG: Attestation: I personally reviewed and interpreted this EKG as follows: Comments: Sinus rhythm with a rate of 81 bpm with no acute ST segment changes Discharge Plan Triage Chief Complaint: Chest Pain ED Midlevel Provider: Markus Hugo ED Provider: Camilo Ge Dx/Rx/DC Orders Clinical Impression: Chest pain, Gastroesophageal reflux disease, Anxiety Instructions: ED Anxiety Reaction, ED Chest Pain, Uncertain Cause Prescriptions: No Action Breo Ellipta 1 EACH blister with device 1 ea IH DAILY albuterol sulfate 2.5 MG/3ML solution for nebulization 1 puff inhalation Q4H PRN PRN (Reason: Sob &/Or Wheezing) polyethylene glycol 3350 17 gram Powder In Packet 17 g PO DAILY omeprazole 40 mg Capsule,Delayed Release(Dr/Ec) 40 mg PO BID bisacodyl 5 mg Tablet 10 mg PO DAILY mesalamine 400 mg Capsule,Delayed Release(Dr/Ec) 2,400 mg PO DAILY hydrocodone-acetaminophen 5-325 mg tablet 1 tab PO Q6H PRN (Reason: pain) 3 Days Qty: 12 0RF Primary Care Provider: Marlene Corea Referrals: Marlene Corea, DO [Primary Care Provider] - Activity Restrictions/Additional Instructions: Please return for any worsening symptoms. You had a negative chest pain work-up today. Best of luck in the upcoming weeks Disposition Disposition: Home, Self Care
[2022-10-12 19:05] VITALS: O2SAT 99
[2022-10-12] MEDS: Mag Hydrox/Al Hydrox/Simeth 30 ML UDC PO (19:06)
[2022-10-12 19:11] LABS: Absolute Lymphocyte Count 1.58 X10^3/uL (0.83-4.51); Absolute Neutrophil Count 5.8 X10^3/uL (2.0-7.7); Basophil# 0.04 X10^3/uL; Basophil% 0.5 % (0-1); Hematocrit 44.6 % (40-54); Hemoglobin 14.5 g/dL (13.0-16.5); Lymphocyte # 1.58 X10^3/ul (0.83-4.51); Lymphocyte % 19.1 % (19-41); Mean Corp Hgb Conc 32.5 g/dL (32-36); Mean Corpuscular Hgb 30.9 pg (27.0-32.0); Mean Corpuscular Volume 94.9 fL (80-94); Mean Platelet Vol. 9.8 fl (6.2-12.0); Monocyte# 0.74 X10^3/uL; Monocyte% 8.9 % (0-10); NRBC Flagged by Analyzer 0 % (0-5); Neutrophil # 5.84 X10^3/uL (2.7-7.7); Neutrophil % 70.7 % (47-70); Platelet Count 206 K/mm3 (150-450); RBC Distribution Width CV 12.9 % (11.6-14.6); RBC Distribution Width SD 45.2 fl (35.1-43.9); White Blood Count 8.3 K/mm3 (4.4-11.0)
--- NOTE | 2022-10-12 19:15 | RAD_ITS ---
EXAM: XR CHEST, 2 VIEWS CLINICAL INDICATION: chest pain TECHNIQUE: Frontal and lateral views of the chest. This report was created using [employer] report generation technology. COMPARISON: January 31, 2022 FINDINGS: LUNGS AND PLEURAL SPACES: Unremarkable. No consolidation or edema. No pneumothorax. No effusion. HEART: Unremarkable. Cardiac silhouette not enlarged. MEDIASTINUM: Central airways and mediastinal contour are unremarkable. BONES/JOINTS: Unremarkable. SOFT TISSUES: Unremarkable. VASCULATURE: Atherosclerotic calcifications of the nonenlarged thoracic aortic arch. UPPER ABDOMEN: Grouping of surgical clips project over the right upper quadrant and also the peripheral aspect of the right upper hemithorax. RAD/Chest PA and Lateral IMPRESSION: No acute disease. Electronically Signed: Otis Moulton MD at 19:34 EST ,
[2022-10-12] MEDS: Famotidine 200 MG/20 ML MDV 20 MG in 0.9% Normal Saline (Pres. free 8 ML 300 MG IV (19:25)
[2022-10-12 19:31] LABS: AST(SGOT) 26 U/L (15-37); Alanine Aminotransfer ALT/SGPT 53 U/L (16-61); Albumin, Serum 3.7 g/dL (3.2-5.0); Alkaline Phosphatase 97 U/L (45-117); Anion Gap 8 (5-15); BUN 21 mg/dL (7-18); BUN/Creat Ratio 19.1 RATIO (10-20); Bilirubin, Direct 0.16 mg/dL (0.00-0.30); Chloride 110 mmol/L (98-107); EST Glomerular Filtration Rate 69 mL/min (>60); Est Glom Filt Rate - Afr Amer 84 mL/min (>60); Estimated Creatinine Clearance 59.91 ml/min; Globulin 3.6 g/dL (2.2-4.2); Glucose 108 mg/dL (74-106); Lipase 65 U/L (73-393); Potassium 4.1 mmol/L (3.5-5.1); Protein, Total 7.3 g/dL (6.4-8.2); Sodium Level 144 mmol/L (136-145); Troponin-I HS (w/2H Reflex) 16 pg/mL (3.0-78.0)
[2022-10-12 19:48] VITALS: BP 134/64; PULSE 79; RESP 12; O2SAT 98
[2022-10-12 19:48] LABS: BNP,B-Type NATRIURETIC PEPTIDE 23.1 pg/mL (0-100)
[2022-10-12 20:03] VITALS: BP 134/64; PULSE 78; RESP 11; O2SAT 98
[2022-10-12 20:16] LABS: D-Dimer Quantitative (DVT/PE) 0.56 FEU/ug/m (0.27-0.49)
[2022-10-12 21:07] LABS: Reflex Troponin-HS? (from REC) Y
[2022-10-12 21:13] VITALS: BP 121/67; PULSE 73; RESP 9; O2SAT 100
[2022-10-12 21:40] LABS: Troponin-I HS 17 pg/mL (3.0-78.0)
[2022-10-12 21:45] VITALS: BP 121/71; PULSE 70; RESP 12; O2SAT 98
== END 2022-10-12 21:51 | disposition home or self-care (01) ==
PROVIDERS: Nurse Practitioner; Emergency Provider Emergency Medicine; PCP Family Medicine; Visit Provider Emergency Medicine
DX: R07.9 Chest pain, unspecified (principal); K50.90 Crohn's disease, unspecified, without complications; F41.9 Anxiety disorder, unspecified; K21.9 Gastro-esophageal reflux disease without esophagitis; Z87.891 Personal history of nicotine dependence; J45.909 Unspecified asthma, uncomplicated; G89.29 Other chronic pain; Z63.4 Disappearance and death of family member
CPT/HCPCS: 71046; 80048; 80076; 83690; 83880; 84484; 85025; 85379; 93005; 96374; 99285; A4216; J3490

== ENCOUNTER 2023-01-07 12:29 | Emergency (ER) | payer OTHER, SELFPAY ==
[2023-01-07 12:30] VITALS: BP 153/83; PULSE 81; RESP 18; TEMP 36.4; O2SAT 97; BMI 34.2
--- NOTE | 2023-01-07 13:18 | EKG12_ITS ---
Test Reason : CP Blood Pressure : / mmHG Vent. Rate : 074 BPM Atrial Rate : 074 BPM P-R Int : 162 ms QRS Dur : 084 ms QT Int : 376 ms P-R-T Axes : 047 052 053 degrees QTc Int : 417 ms Normal sinus rhythm Normal ECG Confirmed by NASEEM LOVELL, ALISIA ([id number]), editor school photograph PHOENIX RÍOS ([id number]) on 01/08/2023 10:17:56 AM Referred By: MENA/RENNY Confirmed By:ALISIA GUSMAN MD
[2023-01-07 13:29] VITALS: BP 139/80; PULSE 76; RESP 15; O2SAT 98
--- NOTE | 2023-01-07 13:30 | RAD_ITS ---
STUDY: X-RAY CHEST REASON FOR EXAM: Male, 77 years old. Chest pain, shortness of breath TECHNIQUE: PA and lateral views of the chest. COMPARISON: Comparison is made with prior study dated 10/12/2002. FINDINGS: EKG electrodes are seen. Surgical clips are once again seen in the upper lateral right chest wall. There has been no change. The lungs are clear and expanded. There is no demonstrated pleural abnormality. Normal size heart. Normal mediastinum and miguel. Normal visualized pulmonary arteries. There is atherosclerotic calcification of the aortic arch with tortuosity. Normal visualized thoracic spine. Normal visualized ribs, clavicles, and shoulders. Surgical clips are seen in the right upper quadrant. RAD/Chest PA and Lateral IMPRESSION: Stable examination. Electronically Signed: Abhishek Lemus MD at 13:45 EST ,
[2023-01-07 13:40] LABS: Absolute Lymphocyte Count 1.07 X10^3/uL (0.83-4.51); Basophil# 0.01 X10^3/uL; Basophil% 0.1 % (0-1); Hematocrit 42.6 % (40-54); Hemoglobin 14.5 g/dL (13.0-16.5); Lymphocyte # 1.07 X10^3/ul (0.83-4.51); Lymphocyte % 13.9 % (19-41); Mean Corpuscular Hgb 31.9 pg (27.0-32.0); Mean Corpuscular Volume 93.8 fL (80-94); Mean Platelet Vol. 9.6 fl (6.2-12.0); Monocyte# 0.53 X10^3/uL; Monocyte% 6.9 % (0-10); NRBC Flagged by Analyzer 0 % (0-5); Neutrophil # 6.02 X10^3/uL (2.7-7.7); Neutrophil % 78.4 % (47-70); Platelet Count 187 K/mm3 (150-450); RBC Distribution Width CV 12.8 % (11.6-14.6); RBC Distribution Width SD 44.3 fl (35.1-43.9); Red Blood Count 4.54 M/mm3 (4.6-6.2); White Blood Count 7.7 K/mm3 (4.4-11.0)
[2023-01-07 13:53] LABS: Anion Gap 3 (5-15); BUN 17 mg/dL (7-18); BUN/Creat Ratio 16.5 RATIO (10-20); Calcium,Total 9.3 mg/dL (8.5-10.1); Chloride 110 mmol/L (98-107); Creatinine, Serum 1.03 mg/dL (0.70-1.30); EST Glomerular Filtration Rate 75 mL/min (>60); Est Glom Filt Rate - Afr Amer 91 mL/min (>60); Estimated Creatinine Clearance 63.98 ml/min; Glucose 112 mg/dL (74-106); Potassium 4.4 mmol/L (3.5-5.1); Sodium Level 142 mmol/L (136-145); Troponin-I HS 10 pg/mL (3.0-78.0)
--- NOTE | 2023-01-07 15:19 | EDS_ITS ---
HPI History of Present Illness Chief Complaint: Chest Pain Informant: patient Onset/Context/Timing Onset: Weeks (1) Timing: Continuous (for past 4 days) Quality: Positive for Indigestion Location: Substernal (and epigastric) Current Severity: Mild Maximum Severity: Moderate Worsened By: Eating and - (food) Relieved By: Antacids (Were helping but not now) Narrative Narrative: Patient presents with chest discomfort, he states this feels like his reflux. Has been having this off and on for 1 week, but constant for the past 4 days, worse when he eats, nonpleuritic. Starts in his epigastrium and radiates up into both sides of his chest. No other radiation. No significant dyspnea, no palpitations or syncope/near syncope, no leg swelling. No orthopnea. Lying down does not necessarily make it worse but eating does. He has been on a PPI twice daily, he has a history of reflux, and states 3 weeks ago at the [place] he had surgery/procedure for a Zenker diverticulum. He states he does not think this is related to that, he was having issues swallowing high in the esophagus/throat with that, and he states that has been going fine. All of this discomfort is lower. [facility] Medical History Asthma BPH (benign prostatic hyperplasia) Chest pain Crohn's disease Former smoker GERD (gastroesophageal reflux disease) History of DVT (deep vein thrombosis) IBS (irritable bowel syndrome) Sleep apnea Zenkers diverticulum Home Medications fluticasone furoate 200 mcg-vilanterol 25 mcg/dose inhalation powder (Breo Ellipta) 1 ea IH DAILY 04/04/19 [History Last Taken 04/19/21 09:00] albuterol sulfate 2.5 mg/3 mL (0.083 %) solution for nebulization 1 puff inhala tion Q4H PRN PRN Sob &/Or Wheezing 11/30/19 [History Last Taken Unknown] bisacodyl 5 mg tablet 10 mg PO DAILY constipation 04/19/21 [History Last Taken Unknown] mesalamine 400 mg capsule,delayed release 2,400 mg PO DAILY Crohns 04/19/21 [History Last Taken 04/19/21] omeprazole 40 mg capsule,delayed release 40 mg PO BID reflux 04/19/21 [History Last Taken 04/19/21 16:00] polyethylene glycol 3350 17 gram oral powder packet 17 g PO DAILY constipation 04/19/21 [History Last Taken 04/19/21] hydrocodone-acetaminophen 5-325mg 5mg-325mg 1 tab PO Q6H PRN pain 3 days #12 tabs 03/29/22 [Rx Last Taken Unknown] Allergy/AdvReac Type Severity Reaction Status Date / Time adalimumab [From Humira] Allergy itching Verified 01/07/23 12:30 ibuprofen AdvReac Upset Verified 01/07/23 12:30 Stomach Family History Mother CHF (congestive heart failure) Father Cancer unsure Surgical History History of colonoscopy (~06/2021) Hx of cholecystectomy Social History Smoking Status: Former smoker ROS ROS ED Constitutional Constitutional ED: Denies chills or fever(s) Eyes Eyes: Denies change in vision or diplopia ENT ENT ED: Denies rhinorrhea or sore throat Cardiovascular Cardiovascular: Reports chest pain; Denies palpitations Respiratory/Chest Respiratory/Chest: Denies cough or dyspnea Gastrointestinal Gastrointestinal: Reports abdominal pain; Denies diarrhea, nausea or vomiting Genitourinary Genitourinary ED: Denies dysuria or hematuria Musculoskeletal Musculoskeletal: Denies back pain or neck pain Integumentary Denies abscess or rash Neurologic Neurologic: Denies headache(s), paresthesias or weakness Psychiatric Psychiatric: Denies anxiety or suicidal thoughts EXAM Physical Exam Const Vital Signs: 01/07/23 12:30 01/07/23 12:51 01/07/23 13:29 Temperature 97.5 F L Temperature Source Temporal Pulse Rate 81 76 Respiratory Rate 18 15 Respiratory Effort Normal Non-Labored Blood Pressure 153/83 H 139/80 H Blood Pressure Mean 106 99 Pulse Ox 97 98 Oxygen Delivery Method Room Air Room Air 01/07/23 15:42 Temperature Temperature Source Pulse Rate Respiratory Rate Respiratory Effort Blood Pressure 147/69 H Blood Pressure Mean Pulse Ox Oxygen Delivery Method Positive well nourished and well developed General Appearance ED: well developed and NAD HEENT Reports moist mucous membranes normocephalic and atraumatic Eyes PERRL and EOMs intact bilaterally Neck full ROM and supple Resp normal respiratory effort and clear to auscultation bilaterally Cardio regular rate, regular rhythm and no murmurs Rate: Negative for tachycardic GI non-distended GI Narrative: Mild epigastric tenderness, no guarding or rebound, no pulsatile mass. Auscultation: normoactive bowel sounds Palpation: soft Back/Spine no CVA tenderness General Back: other FROM Extremity normal to inspection General Extremety ED: Negative for edema, pulses abnormal or tenderness General Extremity: Negative for edema or pulses abnormal Neuro oriented x3, CN's II-XII intact bilaterally and no sensory deficits noted Sensorium / Orientation: awake and alert Motor Exam: strength 5/5 throughout Psych mental status grossly normal Skin no rashes or lesions noted and no wounds MDM MDM MDM Narrative Medical decision making narrative: Patient's work-up is negative, with consistent discomfort for the past 4 days and a negative troponin and a normal EKG I feel confident telling this patient h e is not having acute coronary syndrome. Chest x-ray 2 views of my interpretation normal, no sign of a pneumomediastinum radiology in agreement. He was given a GI cocktail this helped a little, I recommend follow-up with GI he is comfortable with that plan Lab Data Attestation: I reviewed the patient's lab results. Labs: Laboratory Results - last 24 hr 01/07/23 01/07/23 12:50 12:50 WBC 7.7 RBC 4.54 L Hgb 14.5 Hct 42.6 MCV 93.8 MCH 31.9 MCHC 34.0 RDW Std Deviation 44.3 H RDW Coeff of Sandra 12.8 Plt Count 187 MPV 9.6 Immature Gran % (Auto) 0.700 Neut % (Auto) 78.4 H Lymph % (Auto) 13.9 L [place] % (Auto) 6.9 Eos % (Auto) 0.0 Baso % (Auto) 0.1 Absolute Neuts (auto) 6.0 Absolute Lymphs (auto) 1.07 Nucleated RBC % 0 Sodium 142 Potassium 4.4 Chloride 110 H Carbon Dioxide 29.0 Anion Gap 3 L BUN 17 Creatinine 1.03 Estim Creat Clear Calc 63.98 Est GFR (MDRD) Af Amer 91 Est GFR (MDRD) Non-Af 75 BUN/Creatinine Ratio 16.5 Glucose 112 H Calcium 9.3 Troponin I High Sens 10 Radiography Diagnostic Testing: Clinical Impression(s) from Imaging Studies Chest X-Ray 01/07/23 13:30 IMPRESSION: Stable examination. Electronically Signed: Abhishek Lemus MD at 13:45 EST , Rhythm Strip Rhythm Strip: Sinus Rhythm Rate: 70 Ectopy: None EKG Initial EKG: Attestation: I personally reviewed and interpreted this EKG as follows: Interpretation: Sinus Rhythm and No Acute Injury Pattern Comments: normal EKG Prior EKG tracings: available for review Prior: Unchanged Discharge Plan Triage Chief Complaint: Chest Pain Other Complaint: Shortness of Breath ED Provider: Zurdo Alcala Dx/Rx/DC Orders Clinical Impression: Chest pain, GERD (gastroesophageal reflux disease) Instructions: ED GERD (Adult) Prescriptions: No Action Breo Ellipta 1 EACH blister with device 1 ea IH DAILY albuterol sulfate 2.5 MG/3ML solution for nebulization 1 puff inhalation Q4H PRN PRN (Reason: Sob &/Or Wheezing) polyethylene glycol 3350 17 gram Powder In Packet 17 g PO DAILY omeprazole 40 mg Capsule,Delayed Release(Dr/Ec) 40 mg PO BID bisacodyl 5 mg Tablet 10 mg PO DAILY mesalamine 400 mg Capsule,Delayed Release(Dr/Ec) 2,400 mg PO DAILY hydrocodone-acetaminophen 5-325 mg tablet 1 tab PO Q6H PRN (Reason: pain) 3 Days Qty: 12 0RF Primary Care Provider: Marlene Corea Referrals: Marlene Corea DO [Primary Care Provider] - Geovani Ramirez DO [Med Staff - Active Staff] - As soon as possible Disposition Disposition: Home, Self Care Discharge Date/Time: 01/07/23 15:45
[2023-01-07 15:42] VITALS: BP 147/69
[2023-01-07] MEDS: Mag Hydrox/Al Hydrox/Simeth 30 ML UDC PO (15:42)
== END 2023-01-07 15:45 | disposition home or self-care (01) ==
PROVIDERS: Emergency Provider Emergency Medicine; PCP Family Medicine; Visit Provider Emergency Medicine
DX: R07.9 Chest pain, unspecified (principal); K21.9 Gastro-esophageal reflux disease without esophagitis; G47.30 Sleep apnea, unspecified; Z86.718 Personal history of other venous thrombosis and embolism; Z87.891 Personal history of nicotine dependence
CPT/HCPCS: 71046; 80048; 84484; 85025; 93005; 99285; A4216

== ENCOUNTER → 2023-04-25 | Outpatient (CLI) | payer OTHER, SELFPAY ==
[2023-04-25 18:23] LABS: Absolute Lymphocyte Count 1.38 X10^3/uL (0.83-4.51); Absolute Neutrophil Count 6.9 X10^3/uL (2.0-7.7); Basophil# 0.03 X10^3/uL; Basophil% 0.3 % (0-1); Hematocrit 44.7 % (40-54); Hemoglobin 14.1 g/dL (13.0-16.5); Lymphocyte # 1.38 X10^3/ul (0.83-4.51); Lymphocyte % 15.5 % (19-41); Mean Corp Hgb Conc 31.5 g/dL (32-36); Mean Corpuscular Hgb 30.8 pg (27.0-32.0); Mean Corpuscular Volume 97.6 fL (80-94); Mean Platelet Vol. 10.4 fl (6.2-12.0); Monocyte# 0.57 X10^3/uL; Monocyte% 6.4 % (0-10); NRBC Flagged by Analyzer 0 % (0-5); Neutrophil # 6.85 X10^3/uL (2.7-7.7); Neutrophil % 77.2 % (47-70); Platelet Count 208 K/mm3 (150-450); RBC Distribution Width CV 12.8 % (11.6-14.6); RBC Distribution Width SD 45.7 fl (35.1-43.9); Red Blood Count 4.58 M/mm3 (4.6-6.2); White Blood Count 8.9 K/mm3 (4.4-11.0)
[2023-04-25 18:45] LABS: Vitamin B12 353 pg/mL (211-911); Vitamin D,25 Hydroxy 34.4 ng/mL
[2023-04-25 19:11] LABS: ALB/GLOB Ratio 1.1 RATIO (0.9-2.4); AST(SGOT) 19 U/L (15-37); Alanine Aminotransfer ALT/SGPT 34 U/L (16-61); Albumin, Serum 3.8 g/dL (3.2-5.0); Alkaline Phosphatase 82 U/L (45-117); Anion Gap 6 (5-15); BUN 18 mg/dL (7-18); BUN/Creat Ratio 16.1 RATIO (10-20); Calcium,Total 8.8 mg/dL (8.5-10.1); Chloride 109 mmol/L (98-107); Creatinine, Serum 1.12 mg/dL (0.70-1.30); EST Glomerular Filtration Rate 68 mL/min (>60); Est Glom Filt Rate - Afr Amer 82 mL/min (>60); Globulin 3.5 g/dL (2.2-4.2); Glucose 98 mg/dL (74-106); Magnesium 2.5 mg/dL (1.6-2.6); Potassium 4.6 mmol/L (3.5-5.1); Protein, Total 7.3 g/dL (6.4-8.2); Sodium Level 142 mmol/L (136-145)
== END | disposition home or self-care (01) ==
LOC: MFPLAB 15:11
PROVIDERS: PCP Family Medicine; Visit Provider Family Medicine
DX: R25.2 Cramp and spasm (principal)
CPT/HCPCS: 36415; 80053; 82306; 82607; 83735; 84443; 85025

== ENCOUNTER → 2023-04-30 | Outpatient (CLI) | payer MEDICARE, SELFPAY ==
--- NOTE | 2023-04-30 13:01 | VDLE_ITS ---
Reason For Study: Pain in right leg RIGHT LEFT GSV is normal. CFV is compressible, spontaneous, phasic, CFV is compressible, spontaneous, phasic, competent, and demonstrates normal competent and demonstrates normal augmentation. augmentation. FV is compressible, spontaneous, phasic, competent and demonstrates normal augmentation. POP V is compressible, spontaneous, phasic, competent and demonstrates normal augmentation. T/P Trunk is compressible. PTV is compressible. RT PerV is compressible. SoleusV is partially compressible with bright intraluminal echoes and venous flow. Procedure This is a venous duplex using B-mode, color flow and spectral Doppler. Exam performed in department. A preliminary report was called and/or faxed to Dr. Conklin. 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 Possible component of acute d isease cannot be determined. No evidence for more proximal extension. Patent and compressible right great saphenous vein Normal flow patterns left common femoral vein Ordering Physician: Valerie Conklin Referring Physician: Marlene Corea Performed By: Ilda Reyes RVT and Student
== END | disposition home or self-care (01) ==
LOC: CVS 12:59
PROVIDERS: PCP Family Medicine; Referring Provider Family Medicine; Visit Provider Family Medicine
DX: M79.604 Pain in right leg (principal)
CPT/HCPCS: 93971

== ENCOUNTER 2023-12-09 13:27 | Emergency (ER) | payer OTHER, SELFPAY ==
[2023-12-09 13:29] VITALS: BP 223/88; PULSE 104; RESP 22; TEMP 35.9; O2SAT 94; BMI 35.3
--- NOTE | 2023-12-09 13:31 | EKG12_ITS ---
Test Reason : CP Blood Pressure : / mmHG Vent. Rate : 091 BPM Atrial Rate : 091 BPM P-R Int : 146 ms QRS Dur : 086 ms QT Int : 360 ms P-R-T Axes : 060 062 058 degrees QTc Int : 442 ms Normal sinus rhythm Nonspecific ST abnormality Abnormal ECG Confirmed by JOHN LOVELL, JERICA ([id number]), editor house organ PHOENIX RÍOS ([id number]) on 12/11/2023 9:10:16 AM Referred By: KENYATTA/TESSIE Confirmed By:JERICA LOPEZ MD
--- NOTE | 2023-12-09 13:31 | RAD_ITS ---
STUDY: X-RAY CHEST REASON FOR EXAM: Male, 78 years old. Chest pain TECHNIQUE: Single AP portable view of the chest. COMPARISON: Comparison is made with prior study of January 07, 2023. FINDINGS: EKG electrodes are seen. Surgical clips are once again seen in the upper lateral right side of the chest wall. The lungs are clear and expanded. There is no demonstrated pleural abnormality. Normal size heart. Normal mediastinum and miguel. Normal visualized pulmonary arteries. There is atherosclerotic calcification of the aortic arch with tortuosity. Normal visualized thoracic spine. Normal visualized ribs, clavicles, and shoulders. There is no demonstrated abnormality of the visualized soft tissue structures of the upper abdomen. RAD/Chest 1 View (Portable) IMPRESSION: Stable examination. No acute abnormality is seen. Electronically Signed: Abhishek Lemus MD at 14:31 EST ,
[2023-12-09 13:53] LABS: Absolute Lymphocyte Count 1.54 X10^3/uL (0.83-4.51); Basophil# 0.04 X10^3/uL; Basophil% 0.4 % (0-1); Hematocrit 44.6 % (40-54); Hemoglobin 14.7 g/dL (13.0-16.5); Lymphocyte # 1.54 X10^3/ul (0.83-4.51); Lymphocyte % 16.4 % (19-41); Mean Corpuscular Hgb 30.8 pg (27.0-32.0); Mean Corpuscular Volume 93.5 fL (80-94); Mean Platelet Vol. 9.8 fl (6.2-12.0); Monocyte# 0.67 X10^3/uL; Monocyte% 7.2 % (0-10); NRBC Flagged by Analyzer 0 % (0-5); Neutrophil # 7.04 X10^3/uL (2.7-7.7); Neutrophil % 75.1 % (47-70); Platelet Count 194 K/mm3 (150-450); RBC Distribution Width CV 12.9 % (11.6-14.6); RBC Distribution Width SD 44.6 fl (35.1-43.9); Red Blood Count 4.77 M/mm3 (4.6-6.2); White Blood Count 9.4 K/mm3 (4.4-11.0)
--- NOTE | 2023-12-09 14:03 | EX.ED.DYSGE1 ---
HPI <CANDACE Don - Last Filed: 12/09/23 16:38> History of Present Illness Chief Complaint: Chest Pain Narrative Narrative: 78 old male with PMH of asthma, Crohn's disease, remote DVT presents with sharp left-sided chest pain lasting about 4 seconds that occurred an hour prior to arrival. After the sharp pain resolved he felt pressure in his left arm. He had no associated shortness of breath, nausea, vomiting, or diaphoresis. No chest pain since that clinical event. No history of similar symptoms. No exertional or pleuritic pain. He has chronic cough and wheezing from asthma but denies increase in symptoms. No recent fever or chills. No leg pain or swelling. Has a remote history of left leg DVT in 2018 from immobility and was on anticoagulation for several months. PFSH <CANDACE Don - Last Filed: 12/09/23 16:38> [facility] Medical History Asthma BPH (benign prostatic hyperplasia) Chest pain Crohn's disease Former smoker GERD (gastroesophageal reflux disease) History of DVT (deep vein thrombosis) IBS (irritable bowel syndrome) Sleep apnea Zenkers diverticulum Home Medications fluticasone furoate 200 mcg-vilanterol 25 mcg/dose inhalation powder (Breo Ellipta) 1 ea IH DAILY 04/04/19 [History Last Taken 04/19/21 09:00] albuterol sulfate 2.5 mg/3 mL (0.083 %) solution for nebulization 1 puff inhalation Q4H PRN PRN Sob &/Or Wheezing 11/30/19 [History Last Taken Unknown] bisacodyl 5 mg tablet 10 mg PO DAILY constipation 04/19/21 [History Last Taken Unknown] mesalamine 400 mg capsule,delayed release 2,400 mg PO DAILY Crohns 04/19/21 [History Last Taken 04/19/21] omeprazole 40 mg capsule,delayed release 40 mg PO BID reflux 04/19/21 [History Last Taken 04/19/21 16:00] polyethylene glycol 3350 17 gram oral powder packet 17 g PO DAILY constipation 04/19/21 [History Last Taken 04/19/21] hydrocodone-acetaminophen 5-325mg 5mg-325mg 1 tab PO Q6H PRN pain 3 days #12 tabs 03/29/22 [Rx Last Taken Unknown] Allergy/AdvReac Type Severity Reaction Status Date / Time adalimumab [From Humira] Allergy itching Verified 12/09/23 13:28 ibuprofen AdvReac Upset Verified 12/09/23 13:28 Stomach Family History Mother CHF (congestive heart failure) Father Cancer unsure Surgical History History of colonoscopy (~06/2021) Hx of cholecystectomy Social History Smoking Status: Former smoker ROS <CANDACE Don - Last Filed: 12/09/23 16:38> ROS ED ROS Narrative Constitutional: Negative for fever, chills, malaise. CVS: Positive for chest pain. Negative for palpitations, syncope. Respiratory: Negative for shortness of breath, cough, orthopnea. GI: Negative for abdominal pain, nausea, vomiting. EXAM <CANDACE Don - Last Filed: 12/09/23 16:38> Physical Exam Narrative Exam Narrative: CONST: Patient sitting in no acute distress. EYES: Normal inspection. NECK: Normal inspection. RESP: No respiratory distress, CTAB. CVS: Regular rate and rhythm, no murmur, no gallop. ABD: Soft and nontender, no guarding or rebound, nondistended. SKIN: Color normal, no rash, warm, dry, intact. EXTREMITIES: Normal appearance, no pedal edema. NEURO: Oriented x4. PSYCH: Normal affect. Const Vital Signs: 12/09/23 13:29 12/09/23 14:07 12/09/23 14:07 Temperature 96.7 F L Temperature Source Temporal Pulse Rate 104 H 80 Respiratory Rate 22 H Blood Pressure 223/88 H 158/90 H Blood Pressure Mean 133 112 Pulse Ox 94 98 Oxygen Delivery Method Room Air Room Air Room Air 12/09/23 16:36 Temperature Temperature Source Pulse Rate Respiratory Rate Blood Pressure 140/76 H Blood Pressure Mean 97 Pulse Ox Oxygen Delivery Method <Dr. Rudi Best DO - Last Filed: 12/10/23 00:10> Physical Exam Const Vital Signs: 12/09/23 13:29 12/09/23 14:07 12/09/23 14:07 Temperature 96.7 F L Temperature Source Temporal Pulse Rate 104 H 80 Respiratory Rate 22 H Blood Pressure 223/88 H 158/90 H Blood Pressure Mean 133 112 Pulse Ox 94 98 Oxygen Delivery Method Room Air Room Air Room Air 12/09/23 16:36 Temperature Temperature Source Pulse Rate Respiratory Rate Blood Pressure 140/76 H Blood Pressure Mean 97 Pulse Ox Oxygen Delivery Method [facility] <CANDACE Don - Last Filed: 12/09/23 16:38> [facility] Narrative Medical decision making narrative: Patient had sharp left-sided chest pain lasting seconds and now has left hand pressure. This occurred at rest. He appears well and nontoxic. He was hypertensive and tachycardic in triage but when rechecked vital signs are normal. He has a normal cardiopulmonary exam. Abdomen soft and nontender. No lower extremity edema or calf tenderness. Distal pulses intact. EKG is sinus rhythm with no ischemic changes and troponin x 2 negative. Basic labs unremarkable. D-dimer negative. CXR shows no acute process. His heart score is 3 making him lower risk. Patient has not had a reoccurrence of pain while here and is comfortable following up outpatient for stress test at the [place]. If the symptoms return or worsen he should be seen again in the ER. He was discharged in stable condition. Differential: GERD, ACS, PE Lab Data Attestation: I reviewed the patient's lab results. Labs: Laboratory Results - last 24 hr 12/09/23 12/09/23 12/09/23 13:40 14:24 15:44 WBC 9.4 RBC 4.77 Hgb 14.7 Hct 44.6 MCV 93.5 MCH 30.8 MCHC 33.0 RDW Std Deviation 44.6 H RDW Coeff of Sandra 12.9 Plt Count 194 MPV 9.8 Immature Gran % (Auto) 0.900 Neut % (Auto) 75.1 H Lymph % (Auto) 16.4 L [place] % (Auto) 7.2 Eos % (Auto) 0.0 Baso % (Auto) 0.4 Absolute Neuts (auto) 7.0 Absolute Lymphs (auto) 1.54 Nucleated RBC % 0 D-Dimer Quant (PE/DVT) 0.47 Sodium 142 Potassium 4.1 Chloride 109 H Carbon Dioxide 24.0 Anion Gap 9 BUN 26 H Creatinine 1.14 Estim Creat Clear Calc 69.10 Est GFR (MDRD) Af Amer 80 Est GFR (MDRD) Non-Af 66 BUN/Creatinine Ratio 22.8 H Glucose 102 Calcium 9.1 Troponin I High Sens 14 15 Radiography Diagnostic Testing: Clinical Impression(s) from Imaging Studies Chest X-Ray 12/09/23 13:31 IMPRESSION: Stable examination. No acute abnormality is seen. Electronically Signed: Abhishek Lemus MD at 14:31 EST , <Dr. Rudi Best, DO - Last Filed: 12/10/23 00:10> [facility] Lab Data Labs: Laboratory Results - last 24 hr 12/09/23 12/09/23 12/09/23 13:40 14:24 15:44 WBC 9.4 RBC 4.77 Hgb 14.7 Hct 44.6 MCV 93.5 MCH 30.8 MCHC 33.0 RDW Std Deviation 44.6 H RDW Coeff of Sandar 12.9 Plt Count 194 MPV 9.8 Immature Gran % (Auto) 0.900 Neut % (Auto) 75.1 H Lymph % (Auto) 16.4 L [place] % (Auto) 7.2 Eos % (Auto) 0.0 Baso % (Auto) 0.4 Absolute Neuts (auto) 7.0 Absolute Lymphs (auto) 1.54 Nucleated RBC % 0 D-Dimer Quant (PE/DVT) 0.47 Sodium 142 Potassium 4.1 Chloride 109 H Carbon Dioxide 24.0 Anion Gap 9 BUN 26 H Creatinine 1.14 Estim Creat Clear Calc 69.10 Est GFR (MDRD) Af Amer 80 Est GFR (MDRD) Non-Af 66 BUN/Creatinine Ratio 22.8 H Glucose 102 Calcium 9.1 Troponin I High Sens 14 15 Radiography Chest X-Ray - ED: Read by ED Physician Diagnostic Testing: Clinical Impression(s) from Imaging Studies Chest X-Ray 12/09/23 13:31 IMPRESSION: Stable examination. No acute abnormality is seen. Electronically Signed: Abhishek Lemus MD at 14:31 EST , I have personally reviewed the patient's chest x-ray. Chest x-ray is unremarkable for pulmonary edema, pneumothorax, pneumonia or focal cardiopulmonary abnormality. Treatment and Re-Evaluation :: ED attending note: I evaluated the patient in conjunction with the ALEXSANDER. I agree with his/her statements and above findings. I have personally performed a face to face assessment of the patient and have reviewed the ALEXSANDER Note. I performed a substantive portion of the visit including all aspects of the following. I personally saw the patient performed chart review, physical exam, reviewed labs, imaging (if obtained), and formulated a treatment and management plan. Brief history: 78-year-old male here with transient sharp chest pain. It is not pressure-like is not exertional without associated shortness of breath. Notes history of DVT but denies any other PE risk factors. Patient denies sudden onset of pain, no tearing sensation, no migratory symptoms, no new numbness, weakness or loss of sensation. Patient denies family history or personal history of Connective tissue disorders (Marfan's Syndrome, Naveen Danlos etc) no recent illnesses. Pain has resolved and has not returned Exam: Nursing triage notes reviewed, Vital signs reviewed Constitutional: please see mdm HENT: MMM Eyes: Pupils equal round and reactive to light, Extraocular muscles intact Neck: No stridor, no JVD, full neck ROM Lungs: Clear to auscultation, No wheezing or rales. No increased work of breathing, no conversational dyspnea, no accessory muscle use, no nasal flaring. No respiratory distress noted Heart: Regular rate and rhythm, No murmurs, No rubs and No gallops, 2+ distal pulses (radial, femoral, posterior tibial) in all extremities Abdomen: Soft, there is no tenderness, rigidity, rebound or guarding, no obvious peritoneal signs, no palpable pulsatile abdominal masses, no auscultated abdominal bruit : No CVAT Extremities: No edema Neuro: No focal neurological deficits, cranial nerves II through XII intact, 5/5 strength in all extremities. Intact sensation to light touch in all extremities, 2+ reflexes bilateral patella dens. Normal gait. No ataxia. Skin: No rash or lesions noted MDM/plan: Chief Complaint: Chest pain External records reviewed: No recent cardiac catheterizations, stress test or echocardiograms noted in the Factors affecting care: IBS, Zenker's diverticulum, Crohn's disease Social determinants of health: Denies tobacco use, cocaine or methamphetamine History obtained from others: None Consults: None MDM narrative: Patient was initially hypertensive but his blood pressure resolved without intervention. We obtained a broad lab and imaging workup to further elucidate the etiology patient complaints I considered the following differential diagnosis: Patient's initial EKG was nonischemic, was normal sinus rhythm, normal axis, normal intervals, no STEMI. Initial D-dimer negative making VTE less likely, initial troponin was negative, CBC without significant anemia or leukocytosis, BMP without significant acute kidney injury. Patient's heart score is low risk. He was comfortable asymptomatic with low risk heart score and negative troponin he is a candidate for outpatient evaluation. Will await second troponin and make final disposition decision based on the study if it is normal we will likely discharge patient with outpatient follow-up with his primary care physician for prompt stress testing. PE less likely given low risk Wells score. Aortic dissection is thought to be less likely given no sudden ripping or tearing pain, migratory pain, palpable pulse inequalities, no focal neurologic deficits concurrent with chest pain. Chance of dissection less than 11/1999. Pericarditis less likely given no pathognomonic EKG changes (no diffuse ST elevations, MO depressions). GI etiology (i.e. Boerhaave syndrome) less likely given no chest or neck crepitus, no vomiting or forced retching. Shared decision making: I will have a discussion with the patient and or visitors regarding risk/benefits of further testing or admission. They will be made aware of of the risk/benefits inherent in this decision they will be given the opportunity to voice understanding. Discharge Plan Triage Chief Complaint: Chest Pain ED Midlevel Provider: Beata Blancas ED Provider: Rudi Best Dx/Rx/DC Orders Clinical Impression: Atypical chest pain Instructions: Chest Pain [facility] Prescriptions: No Action Breo Ellipta 1 EACH blister with device 1 ea IH DAILY albuterol sulfate 2.5 MG/3ML solution for nebulization 1 puff inhalation Q4H PRN PRN (Reason: Sob &/Or Wheezing) polyethylene glycol 3350 17 gram Powder In Packet 17 g PO DAILY omeprazole 40 mg Capsule,Delayed Release(Dr/Ec) 40 mg PO BID bisacodyl 5 mg Tablet 10 mg PO DAILY mesalamine 400 mg Capsule,Delayed Release(Dr/Ec) 2,400 mg PO DAILY hydrocodone-acetaminophen 5-325 mg tablet 1 tab PO Q6H PRN (Reason: pain) 3 Days Qty: 12 0RF Primary Care Provider: Marlene Corea Referrals: Marlene Corea, DO [Primary Care Provider] - Activity Restrictions/Additional Instructions: Please follow-up for an outpatient stress test. In the meantime if symptoms worsen return to the ER for reevaluation. Disposition Disposition: Home, Self Care Discharge Date/Time: 12/09/23 16:37 Capacity <CANDACE Don - Last Filed: 12/09/23 16:38> Legal Respooler Reflex Medical hold order details:: IF a medical hold is selected below, a suggested order for a MEDICAL HOLD will reflex upon signing the document. Next of kin: [place] law dictates a PRIORITY LIST for identifying legal decision-maker/legal next of kin in the following order (LNOK): 1st: The patient?s legal guardian, if any 2nd: The patient's spouse (if status is questionable, consult Risk Management) 3rd: The patient?s adult child(davis) (majority, if multiple children) 4th: The patient?s parents 5th: The patient?s adult siblings (majority, if multiple children siblings)
[2023-12-09 14:07] VITALS: BP 158/90; PULSE 80; O2SAT 98
[2023-12-09 14:14] LABS: Anion Gap 9 (5-15); BUN 26 mg/dL (7-18); BUN/Creat Ratio 22.8 RATIO (10-20); Calcium,Total 9.1 mg/dL (8.5-10.1); Chloride 109 mmol/L (98-107); Creatinine, Serum 1.14 mg/dL (0.70-1.30); EST Glomerular Filtration Rate 66 mL/min (>60); Est Glom Filt Rate - Afr Amer 80 mL/min (>60); Glucose 102 mg/dL (74-106); Potassium 4.1 mmol/L (3.5-5.1); Sodium Level 142 mmol/L (136-145); Troponin-I HS (w/2H Reflex) 14 pg/mL (3.0-78.0)
[2023-12-09 14:37] LABS: D-Dimer Quantitative (DVT/PE) 0.47 FEU/ug/m (0.27-0.49)
--- OUTSIDE RECORDS SUMMARY | 2023-12-09 15:02 | XMS RPT_ITS | CCD ---
Author Name Unknown Address [address] [place] [address] Organization [facility] Care Team Providers Care Trim Technician Name Role Phone LANZINGER JR, TOLU DONALDSON Unavailable Unav ailable LANZINGER JR, TOLU DONALDSON Unavailable Unav ailable LANZINGER JR, TOLU DONALDSON Unavailable Unav ailable LANZINGER JR, TOLU DONALDSON Unavailable Unav ailable LANZINGER JR, TOLU DONALDSON Unavailable Unav ailable GURAN, YURI Unavailable Unavailable LANZINGER JR, TOLU DONALDSON Unavailable Unav ailable LANZINGER JR, TOLU DONALDSON Unavailable Unav ailable LANZINGER JR, TOLU DONALDSON Unavailable Unav ailable LANZINGER JR, TOLU DONALDSON Unavailable Unav ailable LANZINGER JR, TOLU DONALDSON Unavailable Unav ailable LANZINGER JR, TOLU DONALDSON Unavailable Unav ailable LANZINGER JR, TOLU DONALDSON Unavailable Unav ailable LANZINGER JR, TOLU DONALDSON Unavailable Unav ailable LANZINGER, TOLU Unavailable Unavailable [facility] Unavailable Unavailable Ansari, Shannan H Unavailable Unavailable LANZINGER, TOLU Unavailable Unavailable Ansari, Shannan H Unavailable Unavailable LANZINGER, TOLU Unavailable Unavailable LANZINGER, TOLU Unavailable Unavailable Ansari, Shannan H Unavailable Unavailable LANZINGER, TOLU Unavailable Unavailable LANZINGER, TOLU Unavailable Unavailable Ansari, Shannan H Unavailable Unavailable LANZINGER, TOLU Unavailable Unavailable LANZINGER, TOLU Unavailable Unavailable Ansari, Shannan H Unavailable Unavailable LANZINGER, TOLU Unavailable Unavailable [facility] Unavailable Unavailable Ansari, Shannan H Unavailable Unavailable GURAN, YURI Unavailable Unavailable LANZINGER, TOLU Unavailable Unavailable Ansari, Shannan H Unavailable Unavailable LANZINGER, TOLU Unavailable Unavailable IMCA Unavailable Unavailable Ansari, Shannan H Unavailable Unavailable LANZINGER, TOLU Unavailable Unavailable LANZINGER, TOLU Unavailable Unavailable Ansari, Shannan H Unavailable Unavailable LANZINGER, TOLU Unavailable Unavailable LANZINGER, TOLU Unavailable Unavailable Ansari, Shannan H Unavailable Unavailable DOMINIQUE HERRERA Attending Unavailable SCHINNER, SHANNAN E Consulting Unavailable DOMINIQUE HERRERA Admitting Unavailable DOMINIQUE HERRERA Primary Care Unavailable PROVIDER, UNKNOWN Consulting Unavailable DOMINIQUE HERRERA Attending Unavailable DOMINIQUE HERRERA Admitting Unavailable LATIA SHANNAN E Consulting Unavailable DOMINIQUE HERRERA Primary Care Unavailable PROVIDER, UNKNOWN Consulting Unavailable DOMINIQUE HERRERA Attending Unavailable DOMINIQUE HERRERA Admitting Unavailable LATIA SHANNAN E Consulting Unavailable DOMINIQUE HERRERA Primary Care Unavailable PROVIDER, UNKNOWN Consulting Unavailable Allergies Allergy Classification Reported Allergen(s) Allergy Type Date of Onset Reaction(s) Facility (1 source) Ibuprofen Drug Allergy [facility] Repository Problems Active Problems Problem Classification Problem Date Documented Date Episodic/Chronic Esophageal disorders (3 sources) Disease of esophagus, unspecified; Translations: [Disease of esophagus, unspecified] Onset: 03-16-2022 Episodic External cause codes: Natural/environment (2 sources) Bitten by dog, subsequent encounter; Translations: [Bitten by dog, initial encounter] Onset: 05-21-2018 Other nervous system disorders (1 source) Other lesions of median nerve, right upper limb; Translations: [Other lesions of median nerve, right upper limb] Onset: 07-08-2018 Chronic Other nervous system disorders (1 source) Carpal tunnel syndrome, right upper limb; Translations: [Carpal tunnel syndrome, right upper limb] Onset: 08-29-2018 Chronic Residual codes; unclassified (1 source) Other specified postprocedural states Onset: 11-05-2018 Episodic Residual codes; unclassified (1 source) Other specified postprocedural states; Translations: [Other specified postprocedural states] Onset: 11-05-2018 Unclassified (2 sources) Unknown / UNK(Unknown) Onset: 05-22-2018 Past or Other Problems Problem Classification Problem Date Documented Da te Episodic/Chronic Open wounds of extremities (4 sources) Open bite of right forearm, subsequent encounter; Translations: [Laceration without foreign body of right forearm, initial encounter] Onset: 05-21-2018 Episodic Open wounds of extremities (1 source) Open bite of left forearm, initial encounter; Translations: [Open bite of left forearm, initial encounter] Onset: 05-21-2018 Episodic Other connective tissue disease (1 source) Other synovitis and tenosynovitis, right hand; Translations: [Other synovitis and tenosynovitis, right hand] Onset: 07-08-2018 Episodic Other connective tissue disease (1 source) Pain in right arm; Translations: [Pain in right arm] Onset: 08-15-2018 Episodic Results Test Name Value Interpretation Reference Range Facil ity Encounters Encounter Date Encounter Type Care Provider Facility Start: 03-27-2022 End: 03-27-2022 ambulatory DOMINIQUE Slade [facility] Start: 03-16-2022 End: 03-16-2022 ambulatory DOMINIQUE Slade [facility] Start: 02-21-2022 End: 02-21-2022 ambulatory DOMINIQUE Slade [facility] Start: 11-05-2018 End: 11-05-2018 Patient encounter procedure TOLU KELLY JR [facility] Start: 10-23-2018 End: 10-23-2018 Evaluation and management of inpatient TOLU KELLY Facility:[facility] Start: 10-23-2018 End: 10-23-2018 Patient encounter procedure TOLU KELLY JR [facility] Start: 08-15-2018 End: 08-15-2018 Patient encounter procedure TOLU ANIKA MELVITOD SANTAMARIA [facility] Start: 07-08-2018 End: 07-08-2018 Patient encounter procedure TOLU KELLY JR [facility] Start: 06-10-2018 End: 06-10-2018 Patient encounter procedure TOLU DONALDSON MELVITOD SANTAMARIA [facility] Start: 06-06-2018 Patient encounter procedure TOLU ROIBN Facility:[facility] Start: 05-23-2018 End: 05-23-2018 Evaluation and management of inpatient TOLU KELLY Facility:[facility] Start: 05-23-2018 End: 05-23-2018 Patient encounter procedure TOLU KELLY JR [facility] Start: 05-22-2018 End: 05-22-2018 Patient encounter procedure TOLU KELLY JR [facility] Start: 05-21-2018 End: 05-21-2018 Patient encounter procedure TOLU KELLY JR [facility] Procedures Date Procedure Procedure Detail Performing Clinician Start: 05-04-2021 Ecg routine ecg w/le ast 12 lds i&r only Payers Date Payer Category Payer Unknown [id number] 2.16.8 [id number] 1945 Unknown [id number] 2.16.8 [id number] 1945 Unknown [id number] 2.16.8 [id number] 1947 Unknown [id number] 2.16.8 [id number] 1947 Unknown [id number] 2.16.8 [id number] 1947 Unknown [id number] 2.16.8 [id number] 1947 Unknown [id number] 2.16.8 [id number] 1947 Unknown [id number] 2.16.8 [id number] 1947 Unknown [id number] 2.16.8 [id number] 1947 Unknown [id number] 2.16.8 [id number] 1947 Unknown [id number] 2.16.84 [id number] 1945 Unknown [id number] 2.16.84 [id number] 1945 Unknown [id number] 2.16.84 [id number] Private Health Insurance [id number] Unknown [id number] Unknown [id number] Summary Purpose Family History No Family History Records FoundNo Family History Records FoundNo Family History Records FoundNo Family History Records FoundNo Family History Records Found Advance Directives No Advanced Directives Records FoundNo Advanced Directives Records FoundNo Advanced Directives Records FoundNo Advanced Directives Records FoundNo Advanced Directives Records Found Procedure Findings Note HNO ID: [id number]: Donald Kelly Jr.Service: Hand SurgeryAuthor Type: PhysicianType: Operative ReportFiled: 10/23/2018 2:09 PMNote Text:OPERATIVE NOTESURGERY DATE: 10/23/2018Incision/Procedure Start Time: 1353Incision Close/Procedure End Time: 1405Surgeon(s)/Proceduralist(s) and Mail Weigher(s):Robin/ Shnatel PGY-2Procedures:Right Carpal Tunnel Release, CPT 17721Tboulvtdhf: MAC and LocalFindings: See belowEstimated Blood Loss: Minimal mlsSpecimens: NoneComplications: NonePreop Diagnosis: Right Carpal Tunnel SyndromePostop Diagnosis: SameCLINICAL SCENARIO: This is a 73 year oldwep-evzo-oct male, who presented [facility] office with signs and symptoms consistent with right carpal tunnelsyndrome. I did offer her right carpal tunnel release. I explained therisks, benefits, options, and potential complications of surgery. Heunderstood these risks and agreed to proceed.DETAILS OF OPERATION: The patient's right palm was marked with indelibleink in the preoperative holding area. He w (more content not included)... Additional Source Comments (unrecognized sect ion and content) No Status Records FoundNo Status Records FoundNo Status Records FoundNo Status Records FoundNo Status Records Found INFORMATION SOURCE (unrecogn ized section and content) DATE CREATED AUTHOR AUTHOR'S ORGANIZ ATION 11/17/2018 [facility] DATE CREATED AUTHOR AUTHOR'S ORGANIZ ATION 07/16/2020 [facility] DATE CREATED AUTHOR AUTHOR'S ORGANIZ ATION 12/26/2021 [facility] DATE CREATED AUTHOR AUTHOR'S ORGANIZ ATION 03/28/2022 [facility] FOR RECORDS PERTAINING TO PATIENTS WHO ARE OR HAVE BEEN ENROLLED IN A CHEMICAL DEPENDENCY/SUBSTANCEABUSE PROGRAM, SOME INFORMATION MAY BE OMITTED. This clinical summary was aggregated from multiple sources. Caution should be exercised in using it in the provision of clinical care. This summary normalizes information from multiple sources, and as a consequence, information in this document may materially change the coding, format and clinical context of patient data. In addition, data may be omitted in some cases. CLINICAL DECISIONS SHOULD BE BASED ON THE PRIMARY CLINICAL RECORDS. [facility]. provides no warranty or guarantee of the accuracy or completeness of information in this document.
[2023-12-09 15:52] LABS: Reflex Troponin-HS? (from REC) Y
[2023-12-09 16:29] LABS: Troponin-I HS 15 pg/mL (3.0-78.0)
[2023-12-09 16:36] VITALS: BP 140/76
== END 2023-12-09 16:37 | disposition home or self-care (01) ==
PROVIDERS: Physician Assistant; Emergency Provider Emergency Medicine; PCP Family Medicine; Visit Provider Emergency Medicine
DX: R07.89 Other chest pain (principal); G47.30 Sleep apnea, unspecified; Z86.718 Personal history of other venous thrombosis and embolism; Z87.891 Personal history of nicotine dependence
CPT/HCPCS: 71045; 80048; 84484; 85025; 85379; 93005; 99284; A4216

== ENCOUNTER 2024-06-03 18:37 | Emergency (ER) | payer OTHER, SELFPAY ==
[2024-06-03 18:38] VITALS: BP 192/77; PULSE 86; RESP 22; TEMP 36.1; O2SAT 99; BMI 36.3
--- NOTE | 2024-06-03 18:42 | EKG12_ITS ---
Test Reason : CP Blood Pressure : / mmHG Vent. Rate : 080 BPM Atrial Rate : 080 BPM P-R Int : 160 ms QRS Dur : 082 ms QT Int : 372 ms P-R-T Axes : 049 053 053 degrees QTc Int : 429 ms Normal sinus rhythm Normal ECG Confirmed by PHIL LOVELL, DAMIAN ([id number]), editorial manager PHOENIX RÍOS ([id number]) on 06/10/2024 10:34:04 A M Referred By: IMELDA Confirmed By:AJIT VILLARREAL MD
[2024-06-03 18:53] LABS: Absolute Lymphocyte Count 1.69 X10^3/uL (0.83-4.51); Absolute Neutrophil Count 6.9 X10^3/uL (2.0-7.7); Basophil# 0.05 X10^3/uL; Basophil% 0.5 % (0-1); Hematocrit 42.7 % (40-54); Hemoglobin 14.3 g/dL (13.0-16.5); Lymphocyte # 1.69 X10^3/ul (0.83-4.51); Lymphocyte % 17.8 % (19-41); Mean Corp Hgb Conc 33.5 g/dL (32-36); Mean Corpuscular Hgb 30.2 pg (27.0-32.0); Mean Corpuscular Volume 90.1 fL (80-94); Mean Platelet Vol. 9.3 fl (6.2-12.0); Monocyte# 0.84 X10^3/uL; Monocyte% 8.8 % (0-10); NRBC Flagged by Analyzer 0 % (0-5); Neutrophil # 6.86 X10^3/uL (2.7-7.7); Neutrophil % 72.3 % (47-70); Platelet Count 211 K/mm3 (150-450); RBC Distribution Width CV 12.9 % (11.6-14.6); RBC Distribution Width SD 42.5 fl (35.1-43.9); Red Blood Count 4.74 M/mm3 (4.6-6.2); White Blood Count 9.5 K/mm3 (4.4-11.0)
--- NOTE | 2024-06-03 18:55 | RAD_ITS ---
STUDY: XR Chest 1 View 06/03/2024 6:54 PM REASON FOR EXAM: Male, 78 years old. chest pain COMPARISON: 12.09.23 TECHNIQUE: XR Chest 1 View FINDINGS: There is no demonstrated pleural abnormality. Normal heart size. Normal mediastinum. Normal miguel. Prominent appearing increased interstitial lung markings. Normal visualized pulmonary arteries. There is atherosclerotic calcification of the aortic arch with tortuosity. There are diffuse degenerative changes of the visualized thoracic spine. There is degenerative osteoarthritis of the bilateral shoulders. There are no acute findings of the upper abdomen. RAD/Chest 1 View (Portable) IMPRESSION: There are no acute findings. Electronically Signed: Lefty Laguna MD at 20:24 EDT ,
[2024-06-03 19:02] LABS: Prothrombin Time (Protime)PT. 13.2 SECONDS (11.7-14.9)
[2024-06-03 19:11] LABS: Anion Gap 2 (5-15); BUN 18 mg/dL (7-18); Calcium,Total 9.3 mg/dL (8.5-10.1); Chloride 107 mmol/L (98-107); EST Glomerular Filtration Rate 62 mL/min (>60); Est Glom Filt Rate - Afr Amer 76 mL/min (>60); Estimated Creatinine Clearance 66.46 ml/min; Glucose 86 mg/dL (74-106); Potassium 4.2 mmol/L (3.5-5.1); Sodium Level 140 mmol/L (136-145); Troponin-I HS (w/2H Reflex) 10 pg/mL (3.0-78.0)
--- NOTE | 2024-06-03 19:40 | EDS_ITS ---
HPI History of Present Illness Chief Complaint: Chest Pain Informant: patient Narrative Narrative: 78-year-old male presenting to the emergency room for evaluation of chest pain. Patient notes a history of Crohn's and asthma. He states he was getting ready to make dinner he developed a sharp zinging like pain first on the left side of his chest and then his lower midsternal region. He states that it would last seconds and go away but it kept coming on. About mcc to the hospital it resolved. It lasted less than 30 minutes. He states he did not feel particular short of breath or sweaty. Notes a history of reflux and states that this seems somewhat different than his reflux which seems to be more upper chest. He states he maybe had something like this a year ago and has not had it since. Patient takes daily prednisone as well as Nexium. He is also on mesalamine. [facility] Medical History Zenkers diverticulum BPH (benign prostatic hyperplasia) History of DVT (deep vein thrombosis) GERD (gastroesophageal reflux disease) Former smoker Sleep apnea Chest pain Asthma IBS (irritable bowel syndrome) Crohn's disease Home Medications ?Medication ?Instructions ?Recorded ?Last Taken ?Type fluticasone furoate 200 1 ea IH DAILY 04/04/19 04/19/21 09:00 History mcg-vilanterol 25 mcg/dose inhalation powder (Breo Ellipta) albuterol sulfate 2.5 mg/3 mL 1 puff inhalation Q4H PRN PRN Sob 11/30/19 Unknown History (0.083 %) solution for nebulization &/Or Wheezing bisacodyl 5 mg tablet 10 mg PO DAILY constipation 04/19/21 Unknown History mesalamine 400 mg capsule,delayed 2,400 mg PO DAILY Crohns 04/19/21 04/19/21 History release omeprazole 40 mg capsule,delayed 40 mg PO BID reflux 04/19/21 04/19/21 16:00 History release polyethylene glycol 3350 17 gram 17 g PO DAILY constipation 04/19/21 04/19/21 History oral powder packet hydrocodone-acetaminophen 5-325mg 1 tab PO Q6H PRN pain 3 days #12 03/29/22 Unknown Rx 5mg-325mg tabs Allergy/AdvReac Type Severity Reaction Status Date / Time adalimumab (From Humira) Allergy itching Verified 06/03/24 18:38 Family History Mother CHF (congestive heart failure) Father Cancer unsure Surgical History History of colonoscopy (~06/2021) Hx of cholecystectomy Social History Smoking Status: Former smoker ROS ROS ED Constitutional Constitutional ED: Denies chills, fever(s) or weight loss Eyes Eyes: Denies change in vision or diplopia ENT ENT ED: Denies ear pain, rhinorrhea or sore throat Cardiovascular Cardiovascular: Reports chest pain; Denies orthopnea, palpitations or racing heartbeat Respiratory/Chest Respiratory/Chest: Denies cough, dyspnea or orthopnea Gastrointestinal Gastrointestinal: Denies abdominal pain, diarrhea, nausea or vomiting Genitourinary Genitourinary ED: Denies dysuria, hematuria or urinary frequency Musculoskeletal Musculoskeletal: Denies arthralgias or myalgias Integumentary Denies abscess or rash Neurologic Neurologic: Denies headache(s) or weakness Psychiatric Psychiatric: Denies anxiety, depression, suicidal ideation or suicidal thoughts Endocrine Endocrinology: Denies polydipsia, polyphagia or polyuria Allergic/Immunologic Allergic/Immunologic ED: Denies mouth swelling, tongue swelling or urticaria EXAM Physical Exam Const Vital Signs: 06/03/24 18:38 06/03/24 18:42 06/03/24 18:48 Temperature 97 F L Temperature Source Temporal Pulse Rate 86 Respiratory Rate 22 H Respiratory Effort Short of Breath Blood Pressure 192/77 H Blood Pressure Mean 115 Pulse Ox 99 Oxygen Delivery Method Room Air Room Air 06/03/24 19:50 06/03/24 20:00 06/03/24 21:00 Temperature Temperature Source Pulse Rate 72 71 66 Respiratory Rate 10 L 16 14 Respiratory Effort Blood Pressure 141/69 H 114/74 121/76 H Blood Pressure Mean 93 87 91 Pulse Ox 96 97 98 Oxygen Delivery Method Room Air Room Air Room Air 06/03/24 21:22 Temperature 98.2 F Temperature Source Pulse Rate 76 Respiratory Rate 18 Respiratory Effort Blood Pressure 118/64 Blood Pressure Mean 82 Pulse Ox 97 Oxygen Delivery Method Positive well nourished and well developed General Appearance ED: well developed HEENT Reports normocephalic, head/scalp atraumatic and moist mucous membranes Eyes PERRL and EOMs intact bilaterally Neck no lymphadenopathy, supple and no JVD Resp normal respiratory effort and clear to auscultation bilaterally Cardio regular rate, regular rhythm and no murmurs GI normal to inspection, nondistended, normoactive bowel sounds and non-tender Palpation: soft Back/Spine no CVA tenderness and normal ROM Extremity normal to inspection General Extremety ED: Negative for edema General Extremity: Negative for edema Neuro oriented x3 and CN's II-XII intact bilaterally Sensorium / Orientation: alert Motor Exam: strength 5/5 throughout Psych mental status grossly normal Mood & Affect: Negative for depressed or tearful Skin no rashes or lesions noted and no wounds MDM MDM MDM Narrative Medical decision making narrative: Differential diagnosis includes but not limited to PE ACS pneumothorax GERD esophageal spasm pleurisy pleural effusion. Initial EKG demonstrates a normal sinus rhythm at a rate of 80 bpm. CBC shows white count 9.5 hemoglobin 14.3 platelet count 211. 2 sets of cardiac enzymes are normal at 10 each. Glucose is 86. My independent interpretation of the chest x-ray is no acute process. Based on the patient's clinical description and the fact that he has remained asymptomatic I doubt that this is pulmonary embolism or dissection. Not seeing evidence of ACS. I think his symptoms are pretty atypical could be related to reflux. Will have him follow-up with primary care History & Record Review Discussion w/independent historian: Patient Lab Data Attestation: I reviewed the patient's lab results. Labs: Laboratory Results - last 24 hr 06/03/24 06/03/24 18:46 20:47 WBC 9.5 RBC 4.74 Hgb 14.3 Hct 42.7 MCV 90.1 MCH 30.2 MCHC 33.5 RDW Std Deviation 42.5 RDW Coeff of Sandra 12.9 Plt Count 211 MPV 9.3 Immature Gran % (Auto) 0.600 Neut % (Auto) 72.3 H Lymph % (Auto) 17.8 L Green % (Auto) 8.8 Eos % (Auto) 0.0 Baso % (Auto) 0.5 Absolute Neuts (auto) 6.9 Absolute Lymphs (auto) 1.69 Nucleated RBC % 0 PT 13.2 INR 1.0 Sodium 140 Potassium 4.2 Chloride 107 Carbon Dioxide 31.0 Anion Gap 2 L BUN 18 Creatinine 1.20 Estim Creat Clear Calc 66.46 Est GFR (MDRD) Af Amer 76 Est GFR (MDRD) Non-Af 62 BUN/Creatinine Ratio 15.0 Glucose 86 Calcium 9.3 Troponin I High Sens 10 10 Radiography Diagnostic Testing: Clinical Impression(s) from Imaging Studies Chest X-Ray 06/03/24 18:55 IMPRESSION: There are no acute findings. Electronically Signed: Lefty Laguna MD at 20:24 EDT , EKG Initial EKG: Attestation: I personally reviewed and interpreted this EKG as follows: Comments: Normal sinus rhythm ventricular rate of [address] segments Discharge Plan Triage Chief Complaint: Chest Pain ED Provider: Alexx Carlton Dx/Rx/DC Orders Clinical Impression: Chest pain, GERD (gastroesophageal reflux disease) Instructions: ED Chest Pain, Uncertain Cause Prescriptions: No Action Breo Ellipta 1 EACH blister with device 1 ea IH DAILY albuterol sulfate 2.5 MG/3ML solution for nebulization 1 puff inhalation Q4H PRN PRN (Reason: Sob &/Or Wheezing) polyethylene glycol 3350 17 gram Powder In Packet 17 g PO DAILY omeprazole 40 mg Capsule,Delayed Release(Dr/Ec) 40 mg PO BID bisacodyl 5 mg Tablet 10 mg PO DAILY mesalamine 400 mg Capsule,Delayed Release(Dr/Ec) 2,400 mg PO DAILY hydrocodone-acetaminophen 5-325 mg tablet 1 tab PO Q6H PRN (Reason: pain) 3 Days Qty: 12 0RF Primary Care Provider: Jaycob Yang Referrals: Jaycob Yang MD [Primary Care Provider] - 1 Week Print Language: Montserratian Disposition Disposition: Home, Self Care Discharge Date/Time: 06/03/24 21:25
[2024-06-03 19:50] VITALS: BP 141/69; PULSE 72; RESP 10; O2SAT 96
[2024-06-03 20:00] VITALS: BP 114/74; PULSE 71; RESP 16; O2SAT 97
[2024-06-03 20:49] LABS: Reflex Troponin-HS? (from REC) Y
[2024-06-03 21:00] VITALS: BP 121/76; PULSE 66; RESP 14; O2SAT 98
[2024-06-03 21:12] LABS: Troponin-I HS 10 pg/mL (3.0-78.0)
[2024-06-03 21:22] VITALS: BP 118/64; PULSE 76; RESP 18; TEMP 36.8; O2SAT 97
== END 2024-06-03 21:25 | disposition home or self-care (01) ==
PROVIDERS: Emergency Provider Emergency Medicine; PCP Family Medicine; Visit Provider Emergency Medicine
DX: R07.9 Chest pain, unspecified (principal); K21.9 Gastro-esophageal reflux disease without esophagitis; Z79.899 Other long term (current) drug therapy; Z87.891 Personal history of nicotine dependence
CPT/HCPCS: 71045; 80048; 84484; 85025; 85610; 93005; 99284; J7030; A4216

== ENCOUNTER → 2024-06-30 | Outpatient (CLI) | payer OTHER, SELFPAY ==
--- NOTE | 2024-07-02 13:27 | STRESSREP_ITS ---
Stress Test Report Date: 06/30/2024 Procedure: Pharmacologic stress nuclear imaging study Indications: Chest pain Consent: Per the patient Procedure: The patient underwent pharmacologic (Regadenoson) evaluation with a peak heart rate of 89 beats per minute (61%predicted maximal heart rate) and a peak blood pressure of 126/68 mmHg. The baseline ECG demonstrated normal sinus rhythm. EKG during lexiscan infusion revealed no significant ischemic changes. EKG post infusion revealed no significant ischemic changes [There were no cardiac dysrhythmias pretest, during pharmacologic infusion, or recovery]. [There was no complaint of chest discomfort during pharmacologic infusion or recovery]. The examination was discontinued secondary to completion of protocol. Impression: 1. Lexiscan stress test test is negative for Lexiscan infusion induced EKG changes of ischemia. 2. Lexiscan stress test test is negative for Lexiscan infusion induced chest pain. 3. Results of the nuclear portion of the test is as below Myocardial perfusion imaging study: Technique: The patient was injected with 14.2 millicuries of technetium 99m Cardiolite and subsequently rest SPECT Cardiolite nuclear imaging was obtained in the horizontal long, vertical long, and short axis views. The patient underwent pharmacologic [Regadenoson 0.4mg] evaluation. Please see above for details. The patient was injected with 44.6 millicuries of technetium 99m Cardiolite and subsequently stress SPECT Cardiolite nuclear imaging was obtained in the horizontal long, vertical long, and short axis views. A gated Cardiolite study at peak stress was obtained. Interpretation: Rest and stress SPECT Cardiolite nuclear imaging status post realignment, normalization, and attenuation correction demonstrate no evidence of significant ischemia or infarction. Gated images reveal no significant regional wall motion abnormalities. The reported LVEF is 69%. Impression: 1. There is no evidence of significant ischemia or infarction. 2. Estimated ejection fraction is 69%. This note was generated with [employer] software. It may contain incorrect words, spelling, and punctuation that were not noted in checking the note before signing.
== END | disposition home or self-care (01) ==
PROVIDERS: PCP Family Medicine; Referring Provider Internal Medicine; Visit Provider Internal Medicine
DX: R07.89 Other chest pain (principal)
CPT/HCPCS: 78452; 93017; A9500; A4216; J2785

== ENCOUNTER → 2024-11-03 | Outpatient (CLI) | payer OTHER, SELFPAY | END | disposition home or self-care (01) | PROVIDERS: PCP Family Medicine; Referring Provider Family Medicine; Visit Provider Family Medicine | DX: R39.9 Unspecified symptoms and signs involving the genitourinary system (principal) | CPT/HCPCS: 87086 ==

== ENCOUNTER 2025-02-03 14:31 | Emergency (ER) | payer OTHER, SELFPAY ==
[2025-02-03 14:31] VITALS: BP 192/72; PULSE 74; RESP 14; TEMP 36.6; O2SAT 98; BMI 36.1
--- NOTE | 2025-02-03 14:34 | ED.RN ---
PT DID NOT WANT TO WAIT
== END 2025-02-03 14:34 | disposition left against medical advice (07) ==
LOC: ED 14:38
PROVIDERS: PCP Family Medicine
DX: Z53.21 Procedure and treatment not carried out due to patient leaving prior to being seen by health care provider (principal)

== ENCOUNTER 2025-03-08 14:06 | Day surgery (SDC) | payer OTHER, SELFPAY ==
[2025-03-08] VITALS (12 sets, daily range): BP systolic 107–167; BP diastolic 67–92; PULSE 74–96; RESP 16–18; TEMP 36.1–37.1; O2SAT 96–99; BMI 35.3
--- NOTE | 2025-03-08 14:27 | EX.ED.DYSGE1 ---
HPI History of Present Illness Chief Complaint: Foreign Body Informant: patient Onset/Context/Timing Onset: Today (Approximately 40 minutes prior to arrival) Context: Sudden Onset Timing: Continuous Quality: Feels like something is stuck Location: Throat Worsened by: Swallowing Relieved by: Nothing Narrative Narrative: Patient presents with esophageal food impaction that occurred today. Patient states he was eating lunch approximately 40 minutes prior to arrival. Patient states he was eating some chicken and it felt like it got stuck in his throat. Patient states it still feels like it is stuck. Patient states he is unable to swallow water. Patient states he feels the water going part way down and then he has to spit it back up. Patient denies any difficulty breathing. Patient denies any fevers or chills. Patient denies any chest pain. Patient states he has a history of Zenker's diverticulum and had surgery. Patient states that they opened it up but did not remove it. [facility] Medical History Zenkers diverticulum BPH (benign prostatic hyperplasia) History of DVT (deep vein thrombosis) GERD (gastroesophageal reflux disease) Former smoker Sleep apnea Chest pain Asthma IBS (irritable bowel syndrome) Crohn's disease Home Medications ?Medication ?Instructions ?Recorded ?Last Taken ?Type fluticasone furoate 200 1 ea IH DAILY 04/04/19 04/19/21 09:00 History mcg-vilanterol 25 mcg/dose inhalation powder (Breo Ellipta) albuterol sulfate 2.5 mg/3 mL 1 puff inhalation Q4H PRN PRN Sob 11/30/19 Unknown History (0.083 %) solution for nebulization &/Or Wheezing bisacodyl 5 mg tablet 10 mg PO DAILY constipation 04/19/21 Unknown History mesalamine 400 mg capsule,delayed 2,400 mg PO DAILY Crohns 04/19/21 04/19/21 History release omeprazole 40 mg capsule,delayed 40 mg PO BID reflux 04/19/21 04/19/21 16:00 History release polyethylene glycol 3350 17 gram 17 g PO DAILY constipation 04/19/21 04/19/21 History oral powder packet hydrocodone-acetaminophen 5-325mg 1 tab PO Q6H PRN pain 3 days #12 03/29/22 Unknown Rx 5mg-325mg tabs Allergy/AdvReac Type Severity Reaction Status Date / Time adalimumab (From Humira) Allergy itching Verified 03/08/25 14:11 Family History Mother CHF (congestive heart failure) Father Cancer unsure Surgical History History of colonoscopy (~06/2021) Hx of cholecystectomy Social History Smoking Status: Former smoker ROS ROS ED Constitutional Constitutional ED: Denies chills or fever(s) Eyes Eyes: Denies blurry vision or change in vision ENT ENT ED: Denies rhinorrhea or sore throat Cardiovascular Cardiovascular: Denies chest pain or palpitations Respiratory/Chest Respiratory/Chest: Denies cough or dyspnea Gastrointestinal Gastrointestinal: Denies nausea or vomiting Genitourinary Genitourinary ED: Denies dysuria or hematuria Musculoskeletal Musculoskeletal: Denies back pain or neck pain Integumentary Denies abscess or rash Neurologic Neurologic: Denies headache(s) or weakness Allergic/Immunologic Allergic/Immunologic ED: Denies mouth swelling or urticaria EXAM Physical Exam Const Vital Signs: 03/08/25 14:08 03/08/25 14:19 Temperature 97.9 F Temperature Source Temporal Pulse Rate 96 Respiratory Rate 18 Respiratory Effort Normal Non-Labored Blood Pressure 167/78 H Blood Pressure Mean 107 Pulse Ox 96 Oxygen Delivery Method Room Air Positive well nourished and well developed Constitutional Narrative: BMI is 35.3 General Appearance ED: well developed and NAD HEENT Reports moist mucous membranes Neck supple and no JVD Resp normal respiratory effort and clear to auscultation bilaterally Cardio regular rate and regular rhythm GI non-tender and non-distended Palpation: soft Neuro oriented x3, CN's II-XII intact bilaterally and no sensory deficits noted Sensorium / Orientation: alert Motor Exam: strength 5/5 throughout Psych mental status grossly normal MDM MDM MDM Narrative Medical decision making narrative: Patient was given a dose of glucagon here. Treatment and Re-Evaluation :: Patient had no improvement of his symptoms after glucagon. Case was discussed with Dr. Ramirez. He will take patient to the endoscopy for removal of the esophageal food impaction. Patient understands and is agreeable with the plan. All questions were answered. Discharge Plan Triage Chief Complaint: Foreign Body ED Provider: Barrington Sanchez Dx/Rx/DC Orders Clinical Impression: Esophageal obstruction due to food impaction, Crohn's disease Prescriptions: No Action Breo Ellipta 1 EACH blister with device 1 ea IH DAILY albuterol sulfate 2.5 MG/3ML solution for nebulization 1 puff inhalation Q4H PRN PRN (Reason: Sob &/Or Wheezing) polyethylene glycol 3350 17 gram Powder In Packet 17 g PO DAILY omeprazole 40 mg Capsule,Delayed Release(Dr/Ec) 40 mg PO BID bisacodyl 5 mg Tablet 10 mg PO DAILY mesalamine 400 mg Capsule,Delayed Release(Dr/Ec) 2,400 mg PO DAILY hydrocodone-acetaminophen 5-325 mg tablet 1 tab PO Q6H PRN (Reason: pain) 3 Days Qty: 12 0RF Primary Care Provider: Jaycob Yang Referrals: Jaycob Yang MD [Primary Care Provider] - Print Language: Slovenian
[2025-03-08] MEDS: Glucagon 1 MG/ML Syringe IV (14:31)
--- NOTE | 2025-03-08 16:37 | PRE.ANES_ITS ---
ASA Classification* ASA Classification ASA Classification: 2 and E Assessment & Plan Anesthesia* Anesthesia Assessment Anesthesia Assessment: Discussed sedation and/or anesthesia options, risks, benefits, and alternatives with patient/parents/legal guardian/POA. Questions invited. The patient/parents/legal guardian/POA seems to understand and agrees to proceed with anesthesia plan. Reviewed the physical assessment, medical history, allergy history and patient home medications list prior to surgery/procedure/anesthetic and documented any changes. Performed airway and anesthesia risk assessments. Anesthesia Type Anesthesia Type: MAC Anesthesia Focused Assessment* Temperature: 98.7 F Pulse Rate: 78 Blood Pressure: 158/68 Respiratory Rate: 16 Pulse Ox: 99 Airway Assessment Mouth opens: >3 cm Mallampati Score: II Focused Labs Anesthesia Preop lab: CBC WBC 9.5 K/mm3 (4.4-11.0) 06/03/24 18:46 06/03/24 RBC 4.74 M/mm3 (4.6-6.2) 06/03/24 18:46 06/03/24 Hgb 14.3 g/dL (13.0-16.5) 06/03/24 18:46 06/03/24 Hct 42.7 % (40-54) 06/03/24 18:46 06/03/24 Plt Count 211 K/mm3 (150-450) 06/03/24 18:46 06/03/24 CHEMISTRY Potassium 4.2 mmol/L (3.5-5.1) 06/03/24 18:46 06/03/24 Sodium 140 mmol/L (136-145) 06/03/24 18:46 06/03/24 Magnesium 2.5 mg/dL (1.6-2.6) 04/25/23 15:12 04/25/23 BUN 18 mg/dL (7-18) 06/03/24 18:46 06/03/24 Creatinine 1.20 mg/dL (0.70-1.30) 06/03/24 18:46 06/03/24 Glucose 86 mg/dL (74-106) 06/03/24 18:46 06/03/24 TSH 1.10 uIU/mL (0.358-3.74) 04/25/23 15:12 COAG PT 13.2 SECONDS (11.7-14.9) 06/03/24 18:46 Pre-Assessment Diagnosis/Proposed Procedure Planned Operative Procedure(s): EGD, remove FB Esophagous Anesthesia History 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 When Was Last Pacemaker Check QUESTION #4 FULL TEXT: You/Your Family Experience fever (hyperthermia) with Anesthesia Last Oral Intake Last Oral intake: Last Oral Intake NPO since 13:30 03/08/25 16:10 Meds taken in AM with sips of water? Meds patient instructed to take am of surgery PONV PONV - transit authority police officer: PONV - transit authority police officer Female HX of Motion Sickness HX of N/V After Surgery Non-Smoker Duration of Surgery greater than 60 minutes Number of Risk Factors PONV Score Height & Weight Height & Weight: Anesthesia: Height & Weight Height 5 ft 10 in 03/08/25 16:10 Weight: 111.6 kg 03/08/25 16:10 Body Mass Index (BMI) 35.3 03/08/25 16:10 Respiratory Assessment Respiratory Assessment - transit authority police officer: Respiratory Tract Infection Hx - transit authority police officer Hx Respiratory Tract Infection No 03/08/25 16:10 STOP Sleep Apnea STOP Sleep Apnea - transit authority police officer: STOP Sleep Apnea - transit authority police officer Hx Hypertension No 04/19/21 22:38 Hx Sleep Apnea Yes 03/08/25 16:10 CPAP Yes 03/08/25 16:10 BIPAP No 03/08/25 16:10 Do you snore loudly (louder than talking or can be heard Do you often feel tired/ fatigued/ sleepy during daytime? Has anyone observed you stop breathing during sleep? STOP Results Positive 03/08/25 16:10 QUESTION #5 FULL TEXT : Do you snore loudly (louder than talking or can be heard through closed doors)? Tobacco Use History Tobacco Use History - transit authority police officer: Tobacco Use History - transit authority police officer Tobacco Use Smoking Status Former smoker 03/08/25 14:34 Hx Tobacco Use No 12/25/19 17:02 Years Smoking Packs Smoked per Day Smoking Cessation Date was No - quit smoking greater 03/08/25 14:34 within the last 15 years than 15 years ago Hx Smoking Cessation Date 04/18/94 03/08/25 14:34 Hx Smoking Cessation No 03/08/25 14:34 Counseling Hematologic Medial History Hematologic Hx - transit authority police officer: Hematologic Medical Hx - documentation coordinator Hx of Blood Transfusion Hx of Transfusion in last 3 Months Date of Last Transfusion (if within last 3 months) Ever experience any problems with transfusion(s)? Specify any problems Hx of Preganancy in last 3 Months Nurse Filling Out Transfusion & Questions: Date: Time: Patient unable to answer at this time (ie. confused, unrespo /Reproduction History /Reproductive History - transit authority police officer: /Reproductive Hx- transit authority police officer Hx Now No 03/08/25 16:10 Gestational Age (in weeks): EDC: Hx Hx Para Hx Section SAB No 03/08/25 16:10 PFS Medical History Zenkers diverticulum BPH (benign prostatic hyperplasia) History of DVT (deep vein thrombosis) GERD (gastroesophageal reflux disease) Former smoker Sleep apnea Chest pain Asthma IBS (irritable bowel syndrome) Crohn's disease Home Medications ?Medication ?Instructions ?Recorded ?Last Taken ?Type fluticasone furoate 200 1 ea IH DAILY 04/04/1904/19 09:00 History mcg-vilanterol 25 mcg/dose inhalation powder (Breo Ellipta) albuterol sulfate 2.5 mg/3 mL 1 puff inhalation Q4H MN N PRN Sob 11/30/19 Unknown History (0.083 %) solution for nebulization &/Or Wheezing bisacodyl 5 mg tablet 10 mg PO DAILY constipation 04/19/21 Unknown History mesalamine 400 mg capsule,delayed 2,400 mg PO DAILY Cr ohns 04/19/21 04/19/21 History release omeprazole 40 mg capsule,delayed 40 mg PO BID reflux 0 04/19/21 04/19/21 16:00 History release polyethylene glycol 3350 17 gram 17 g PO DAILY constip ation 04/19/21 04/19/21 History oral powder packet hydrocodone-acetaminophen 5-325mg 1 tab PO Q6H PRN david n 3 days #12 03/29/22 Unknown Rx 5mg-325mg tabs Allergy/AdvReac Type Severity Reaction Status Date / Time adalimumab (From Humira) Allergy itching Verified 03/08/25 14:11 Family History Mother CHF (congestive heart failure) Father Cancer unsure Surgical History History of colonoscopy (~06/2021) Hx of cholecystectomy Social History Smoking Status: Former smoker Review of Systems (Anesthesia) ROS Narrative System reviewed and no additional complaints, except as documented.
--- NOTE | 2025-03-08 16:55 | ED.RN ---
REPORT CALLED TO OR NURSE ROSAURA AT THIS TIME.
[2025-03-08] MEDS: Ipratropium/Albuterol Sulfate 3 ML AMPUL.NEB INHALATION (17:17)
--- NOTE | 2025-03-08 17:26 | PCM.HP.STD ---
HPI - General General Date of Admission: 03/08/25 Date of Service: 03/08/25 Chief Complaint: food impaction HPI Narrative LIBRADO GUILLEN, is a 79 M who presents with esophageal food impaction that occurred today. Patient states he was eating lunch approximately 40 minutes prior to arrival. Patient states he was eating some chicken and it felt like it got stuck in his throat. Patient states it still feels like it is stuck. Patient states he is unable to swallow water. Patient states he feels the water going part way down and then he has to spit it back up. Patient denies any difficulty breathing. Patient denies any fevers or chills. Patient denies any chest pain. Patient states he has a history of Zenker's diverticulum and had surgery. Patient states that they opened it up but did not remove it. [facility] Medical History Zenkers diverticulum BPH (benign prostatic hyperplasia) History of DVT (deep vein thrombosis) GERD (gastroesophageal reflux disease) Former smoker Sleep apnea Chest pain Asthma IBS (irritable bowel syndrome) Crohn's disease Home Medications ?Medication ?Instructions ?Recorded ?Last Taken ?Type fluticasone furoate 200 1 ea IH DAILY 04/04/19 04/19/21 09:00 History mcg-vilanterol 25 mcg/dose inhalation powder (Breo Ellipta) albuterol sulfate 2.5 mg/3 mL 1 puff inhalation Q4H PRN PRN Sob 11/30/19 Unknown History (0.083 %) solution for nebulization &/Or Wheezing bisacodyl 5 mg tablet 10 mg PO DAILY constipation 04/19/21 Unknown History mesalamine 400 mg capsule,delayed 2,400 mg PO DAILY Crohns 04/19/21 04/19/21 History release omeprazole 40 mg capsule,delayed 40 mg PO BID reflux 04/19/21 04/19/21 16:00 History release polyethylene glycol 3350 17 gram 17 g PO DAILY constipation 04/19/21 04/19/21 History oral powder packet hydrocodone-acetaminophen 5-325mg 1 tab PO Q6H PRN pain 3 days #12 03/29/22 Unknown Rx 5mg-325mg tabs Allergy/AdvReac Type Severity Reaction Status Date / Time adalimumab (From Humira) Allergy itching Verified 03/08/25 14:11 Family History Mother CHF (congestive heart failure) Father Cancer unsure Surgical History History of colonoscopy (~06/2021) Hx of cholecystectomy Social History Smoking Status: Former smoker ROS Constitutional Constitutional: Denies fatigue, fever(s), poor appetite, weight gain or weight loss Gastrointestinal Gastrointestinal: Denies belching, bloating, change in bowel habits, change in stool character, chewing difficulty, coffee ground emesis, constipation, cramping, diarrhea, dyspepsia, dysphagia, early satiety, excessive flatus, fecal incontinence, heartburn, hematemesis, hematochezia, hemorrhoids, loose stools, melena, nausea, odynophagia, rectal bleeding, tenesmus, vomiting or weight changes Vital Signs Vital Signs Vital Signs: 03/08/25 14:08 03/08/25 14:19 03/08/25 15:11 Temperature 97.9 F Temperature Source Temporal Pulse Rate 96 85 Respiratory Rate 18 16 Respiratory Effort Normal Non-Labored Blood Pressure 167/78 H 126/73 H Blood Pressure Mean 107 90 Blood Pressure Source Blood Pressure Position Blood Pressure Location Pulse Ox 96 99 Oxygen Delivery Method Room Air Room Air 03/08/25 16:10 03/08/25 16:16 03/08/25 16:37 Temperature 98.7 F 98.7 F 98.7 F Temperature Source Oral Pulse Rate 74 78 78 Respiratory Rate 16 16 16 Respiratory Effort Blood Pressure 155/68 H 158/68 H 158/68 H Blood Pressure Mean 97 98 Blood Pressure Source Monitor Blood Pressure Position Semi-Fowlers Blood Pressure Location Right Arm Pulse Ox 97 99 99 Oxygen Delivery Method Room Air Weight Weight: 246 lb 0.574 oz Body Mass Index (BMI) 35.3 Physical Exam Const alert, oriented x3, no apparent distress and healthy appearing General Appearance: cooperative GI normal to inspection, nondistended, normoactive bowel sounds, soft to palpation, non-tender and non-distended Percussion: normal to percussion Rectal Exam: deferred Assessment & Plan Assessment/Plan (1) Esophageal obstruction due to food impaction: PLAN: Patient will undergo EGD with food impaction removal and possible esophageal dilation. He was explained alternatives, risk and benefits include understanding bleeding, infection, sepsis, perforation, need for charge and . He will have an ASA of 3..
--- NOTE | 2025-03-08 18:25 | OP.EGD_ITS ---
Patient Name: Vipul Ansari Procedure Date: 03/08/2025 5:48 PM Date of : 1945 Age: 79 Procedure: Upper GI endoscopy Indications: Foreign body in the esophagus Providers: Geovani Ramirez DO Medicines: Monitored Anesthesia Care Patient Profile: This is a 79 year old male. Refer to note in patient chart for documentation of history and physical. Patient has symptoms of dysphagia with solids. Complications: No immediate complications. Procedure: Pre-Anesthesia Assessment: - Prior to the procedure, a History and Physical was performed, and patient medications and allergies were reviewed. The patient is competent. The risks and benefits of the procedure and the sedation options and risks were discussed with the patient. All questions were answered and informed consent was obtained. Patient identification and proposed procedure were verified by the physician in the pre-procedure area. Mental Status Examination: alert and oriented. Airway Examination: normal oropharyngeal airway and neck mobility. Respiratory Examination: clear to auscultation. CV Examination: normal. Prophylactic Antibiotics: The patient does not require prophylactic antibiotics. Prior Anticoagulants: The patient has taken no anticoagulant or antiplatelet agents except for NSAID medication. ASA Grade Assessment: III - A patient with severe systemic disease. After reviewing the risks and benefits, the patient was deemed in satisfactory condition to undergo the procedure. The anesthesia plan was to use monitored anesthesia care (MAC). Immediately prior to administration of medications, the patient was re-assessed for adequacy to receive sedatives. The heart rate, respiratory rate, oxygen saturations, blood pressure, adequacy of pulmonary ventilation, and response to care were monitored throughout the procedure. The physical status of the patient was re-assessed after the procedure. After obtaining informed consent, the endoscope was passed under direct vision. Throughout the procedure, the patient's blood pressure, pulse, and oxygen saturations were monitored continuously. The gastroscope was introduced through the mouth, and advanced to the second part of duodenum. The upper GI endoscopy was accomplished without difficulty. The patient tolerated the procedure well. Scope In: 6:09:13 PM Scope Out: 6:20:47 PM Total Procedure Duration Time 0 hours 11 minutes 34 seconds Findings: Food was found at the cricopharyngeus. Removal was accomplished with a regular forceps and Nunez net. A non-bleeding Zenker's diverticulum with a large opening, impacted food and no stigmata of recent bleeding was found. The exam of the esophagus was otherwise normal. No gross lesions were noted in the stomach. No gross lesions were noted in the entire examined duodenum. Impression: - Food at the cricopharyngeus. Removal was successful. - Zenker's diverticulum. - No gross lesions in the stomach. - No gross lesions in the entire examined duodenum. Recommendation: - Discharge patient to home. - Resume previous diet. - Continue present medications. Procedure Code(s): --- Professional --- 03017, Esophagogastroduodenoscopy, flexible, transoral; with removal of foreign body(s) CPT copyright 2021 [employer]. All rights reserved. The codes documented in this report are preliminary and upon vessel traffic officer review may be revised to meet current compliance requirements. Geovani Ramirez DO 03/08/2025 6:24:36 PM This report has been signed electronically. Number of Addenda: 0 Note Initiated On: 03/08/2025 5:48 PM
--- NOTE | 2025-03-08 18:25 | OP.CCLET_ITS ---
03/08/2025 Jaycob Yang Md Re : Upper GI endoscopy procedure for Vipul Ansari Dear Trey This procedure was performed on Saturday, March 08, 2025. My impressions and recommendations are as follows: Impressions : - Food at the cricopharyngeus. Removal was successful. - Zenker's diverticulum. - No gross lesions in the stomach. - No gross lesions in the entire examined duodenum. Recommendations : - Discharge patient to home. - Resume previous diet. - Continue present medications. My findings are described in the full procedure note, which is enclosed. If I can be of further assistance, please feel free to contact me at . Sincerely, Geovani Ramirez, 03/08/2025 6:24:36 PM This report has been signed electronically.
--- NOTE | 2025-03-08 18:29 | PCM.POST.ANE ---
Anesthesia: Postop Eval I Current Vital Signs Temperature: 97.6 F Pulse Rate: 82 Blood Pressure: 131/67 Respiratory Rate: 16 Pulse Ox: 98 Oxygen Delivery Method: Room Air Assessment Airway patent: Yes Spontaneous unlabored respirations: Yes Mental status: Awake and Calm nausea: No Vomiting: No Anesthesia Complication: No Fluid Hydration Crystalloid volume administer (ml): 10 Total IV fluid infused: 10 Progress Note Anesthesia document: Postop Eval 1 completed: Yes
--- NOTE | 2025-03-08 18:30 | PCM.POSTANE2 ---
Anesthesia Postop Eval I Sum Postop Eval Completion status Anesthesia document: Postop Eval 1 completed: Yes Anesthesia Postop Eval I Summary Anesthesia Postop Eval I Summary: Anesthesia Postop Eval I: Assessment Summary Airway patent Yes 03/08/25 18:30 Spontaneous unlabored Yes 03/08/25 18:30 respirations Mental status Awake,Calm 03/08/25 18:30 nausea No 03/08/25 18:30 Vomiting No 03/08/25 18:30 Anesthesia Postop Eval I: Fluid Summary Crystalloid volume administer 10 03/08/25 18:30 (ml) Colloids volume administered ( ml) Blood Product volume administered (ml) Total IV fluid infused 10 03/08/25 18:30 Anesthesia Postop Eval I: Summary Notes Anesthesia Complication No 03/08/25 18:30 Anesthesia Complication Comment: Post-operative progress note Anesthesia: Postop Eval II Evaluation Mental status: Awake Pain Level: 0 nausea: No Vomiting: No
== END 2025-03-08 19:00 | disposition home or self-care (01) ==
LOC: ED 16:14 → EN 16:34 → ACINP 16:35
PROVIDERS: Emergency Provider Emergency Medicine; PCP Family Medicine; Referring Provider Family Medicine; Visit Provider Internal Medicine Gastroenterology
PROC: 0DJ08ZZ Inspection of Upper Intestinal Tract, Via Natural or Artificial Opening Endoscopic (ICD-10-PCS; CPT 43235; principal; 2025-03-08 16:40)
DX: K22.2 Esophageal obstruction (principal); K50.90 Crohn's disease, unspecified, without complications; K22.5 Diverticulum of esophagus, acquired; K21.9 Gastro-esophageal reflux disease without esophagitis; Z79.899 Other long term (current) drug therapy; Z87.891 Personal history of nicotine dependence
CPT/HCPCS: 43247; 94640; 99284; A4216; J1610

== ENCOUNTER → 2025-05-19 | Outpatient (CLI) | payer MEDICARE, SELFPAY | END | disposition home or self-care (01) | LOC: LABSPEC 15:13 | PROVIDERS: PCP Family Medicine | DX: J02.9 Acute pharyngitis, unspecified (principal) | CPT/HCPCS: 87070 ==

== ENCOUNTER → 2025-05-27 | Outpatient (CLI) | payer MEDICARE, SELFPAY ==
[2025-05-27 18:38] LABS: AST(SGOT) 28 U/L (<=37); Alanine Aminotransfer ALT/SGPT 43 U/L (<=46); Albumin, Serum 4.2 g/dL (3.4-4.8); Alkaline Phosphatase 93 U/L (40-129); Anion Gap 13 (5-15); BUN 17 mg/dL (4-19); BUN/Creat Ratio 18.9 RATIO (10-20); Calcium,Total 9.3 mg/dL (7.6-11.0); Carbon Dioxide 20.6 mmol/L (21.0-32.0); Chloride 106 mmol/L (98-108); Globulin 2.9 g/dL (2.2-4.2); Glucose 105 mg/dL (70-99); Potassium 4.1 mmol/L (3.3-5.1)
[2025-05-27 18:53] LABS: Hematocrit 42.1 % (40-54); Hemoglobin 14.1 g/dL (13.0-16.5); Immature Granulocytes Count 0.130 X10^3/uL (0.0-0.0); Mean Corp Hgb Conc 33.5 g/dL (32-36); Mean Corpuscular Volume 95.0 fL (80-94); Mean Platelet Vol. 9.8 fl (6.2-12.0); NRBC Flagged by Analyzer 0 % (0-5); Platelet Count 235 K/mm3 (150-450); RBC Distribution Width CV 13.7 % (11.6-14.6); RBC Distribution Width SD 47.3 fl (35.1-43.9); Red Blood Count 4.43 M/mm3 (4.6-6.2); White Blood Count 9.0 K/mm3 (4.4-11.0)
[2025-06-01 02:07] LABS: Zinc, Plasma or Serum 71 ug/dL (44-115)
== END | disposition home or self-care (01) ==
LOC: MFPLAB 15:19
PROVIDERS: PCP Family Medicine; Referring Provider Family Medicine; Visit Provider Family Medicine
DX: R53.83 Other fatigue (principal)
CPT/HCPCS: 36415; 80053; 84443; 84630; 85025

== ENCOUNTER 2025-05-31 07:23 | Emergency (ER) | payer OTHER, SELFPAY ==
[2025-05-31 07:25] VITALS: BP 143/72; PULSE 94; RESP 18; TEMP 36.6; O2SAT 98; BMI 35.3
[2025-05-31] MEDS: 0.9% Normal Saline (1000mL) 1,000 ML 999 ML IV ×2 (07:56→09:18)
[2025-05-31 08:06] LABS: Hematocrit 42.0 % (40-54); Hemoglobin 14.1 g/dL (13.0-16.5); Immature Granulocytes Count 0.090 X10^3/uL (0.0-0.0); Mean Corp Hgb Conc 33.6 g/dL (32-36); Mean Corpuscular Volume 94.0 fL (80-94); Mean Platelet Vol. 9.3 fl (6.2-12.0); NRBC Flagged by Analyzer 0 % (0-5); Platelet Count 219 K/mm3 (150-450); RBC Distribution Width CV 13.6 % (11.6-14.6); RBC Distribution Width SD 46.4 fl (35.1-43.9); Red Blood Count 4.47 M/mm3 (4.6-6.2); White Blood Count 7.5 K/mm3 (4.4-11.0)
[2025-05-31 08:26] LABS: Red Blood Cells-Urine 0 SEEN /hpf (0-5); Squamous Epithelial Cells - UA 0 SEEN /hpf (0-5)
[2025-05-31 08:46] LABS: Color, Urine Yellow (Yellow); Glucose, Dipstick Normal (Normal); Ketone-Dipstick Negative (Negative); Leukocyte Esterase-Dipstick Negative /ul (Negative); Nitrite-Dipstick Negative (Negative); Occult Blood-Urine Negative /ul (Negative); Protein-Dipstick 30 mg/dl (Negative); Specific Gravity, Urine 1.020 (1.002-1.030); Urine Bilirubin Dipstick Negative (Negative)
[2025-05-31 09:03] LABS: AST(SGOT) 35 U/L (<=37); Alanine Aminotransfer ALT/SGPT 41 U/L (<=46); Albumin, Serum 4.0 g/dL (3.4-4.8); Alkaline Phosphatase 90 U/L (40-129); Anion Gap 14 (5-15); BUN 14 mg/dL (4-19); BUN/Creat Ratio 13.6 RATIO (10-20); Calcium,Total 9.0 mg/dL (7.6-11.0); Carbon Dioxide 16.6 mmol/L (21.0-32.0); Chloride 107 mmol/L (98-108); Estimated Creatinine Clearance 73.06 ml/min (50-250); Globulin 2.9 g/dL (2.2-4.2); Glucose 109 mg/dL (70-99); Potassium 3.9 mmol/L (3.3-5.1)
[2025-05-31] MEDS: BMX LIQUID 180 ML 10 ML PO (09:18)
[2025-05-31 09:41] LABS: Mucous, Urine 2+ /hpf (<or=2+)
[2025-05-31 11:25] VITALS: BP 138/77; PULSE 74; RESP 16; O2SAT 99
[2025-05-31 11:55] VITALS: BP 138/77; PULSE 74; RESP 16; TEMP 36.6; O2SAT 99
== END 2025-05-31 11:55 | disposition home or self-care (01) ==
PROVIDERS: Emergency Provider Emergency Medicine; PCP Family Medicine; Visit Provider Emergency Medicine
DX: B37.0 Candidal stomatitis (principal); Z87.891 Personal history of nicotine dependence
CPT/HCPCS: 80053; 81001; 85025; 96360; 96361; 99283; A4216

== ENCOUNTER → 2025-06-04 | Outpatient (CLI) | payer MEDICARE, SELFPAY ==
[2025-06-04 18:20] LABS: AST(SGOT) 41 U/L (<=37); Alanine Aminotransfer ALT/SGPT 53 U/L (<=46); Albumin, Serum 4.1 g/dL (3.4-4.8); Alkaline Phosphatase 79 U/L (40-129); Anion Gap 13 (5-15); BUN 20 mg/dL (4-19); BUN/Creat Ratio 17.7 RATIO (10-20); Calcium,Total 9.2 mg/dL (7.6-11.0); Carbon Dioxide 21.4 mmol/L (21.0-32.0); Chloride 106 mmol/L (98-108); Globulin 2.9 g/dL (2.2-4.2); Glucose 92 mg/dL (70-99); Potassium 3.8 mmol/L (3.3-5.1); Vitamin B12 393 pg/mL (180-914)
[2025-06-04 18:25] LABS: FOLATES,SERUM (FOLIC ACID) 8.44 ng/mL (4.60-34.80)
[2025-06-08 13:08] LABS: Vitamin D 1,25-Dihydroxy 58.6 pg/mL (24.8-81.5)
[2025-06-08 14:11] LABS: Vitamin D,25 Hydroxy 23.5 ng/mL (30-100)
[2025-06-08 16:09] LABS: Zinc, Plasma or Serum 106 ug/dL (44-115)
== END | disposition home or self-care (01) ==
LOC: MFPLAB 13:52
PROVIDERS: PCP Family Medicine; Referring Provider Family Medicine; Visit Provider Family Medicine
DX: K50.90 Crohn's disease, unspecified, without complications (principal)
CPT/HCPCS: 36415; 80053; 82306; 82607; 82652; 82746; 84630

== ENCOUNTER 2025-06-08 17:39 | Observation (INO) | payer OTHER, SELFPAY ==
[2025-06-08 17:44] VITALS: BP 135/81; PULSE 78; RESP 20; TEMP 36.6; O2SAT 99; BMI 35.9
--- NOTE | 2025-06-08 18:36 | ED.VIS.LOWEX ---
HPI History of Present Illness HPI Narrative: Patient presents with bilateral foot pain that has been getting worse over the past 3 weeks. Patient states it is gradually getting worse. Patient states his feet feel like they are . Patient describes the pain as sharp. Patient states it is worse with weightbearing. 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 Patient states he was started on gabapentin. Patient states he took 1 dose of that. Patient states he went home and took a nap. Patient states that when he woke up he felt disoriented and weak. Patient denies any trauma or injury. Chief Complaint: Lower Extremity Injury Onset/Context/Timing Onset: Weeks (3) Context: Gradual Onset Quality of Pain: Sharp Location: Bilateral feet Worsened by: Nothing Relieved by: Nothing Associated Symptoms Associated Symptoms: Positive for Parasthesia; Negative for Weakness or Loss of Funtion [facility] Medical History Zenkers diverticulum BPH (benign prostatic hyperplasia) History of DVT (deep vein thrombosis) GERD (gastroesophageal reflux disease) Former smoker Sleep apnea Chest pain Asthma IBS (irritable bowel syndrome) Crohn's disease Home Medications ?Medication ?Instructions ?Recorded ?Last Taken ?Type benralizumab 10 mg/0.5 mL 30 mg subcut Q8W 05/29/25 04/06/25 History subcutaneous syringe (Fasenra) polyethylene glycol 3350 17 4 g PO ONCE 05/29/25 05/30/25 History gram/dose oral powder (Miralax) vedolizumab 300 mg intravenous mg .Route 05/29/25 05/03/25 History solution (Entyvio) albuterol sulfate 90 mcg/actuation 2 inh inhalation Q4H PRN shortness 05/31/25 05/17/25 History breath activated powder inhaler of breath bisacodyl 5 mg tablet 5 mg PO DAILY 05/31/25 05/30/25 History clotrimazole 10 mg alexandra 10 mg mucous membrane 4X/DAY 05/31/25 Unknown History dicyclomine 20 mg tablet 20 mg PO 4X/DAY 05/31/25 05/31/25 History diphenhydramine HCl 12.5 mg/5 mL 6.25 mg PO BID 05/31/25 Unknown History oral liquid esomeprazole magnesium 40 mg 40 mg PO DAILY 05/31/25 05/31/25 History capsule,delayed release famotidine 20 mg tablet (Acid 20 mg PO DAILY 05/31/25 05/30/25 History Controller) fluconazole 100 mg tablet 100 mg PO Q24H 05/31/25 Unknown History fluconazole 200 mg tablet 200 mg PO DAILY 10 days #10 tabs 05/31/25 Unknown Rx ipratropium bromide 42 mcg (0.06 2 spray intranasal TID PRN allergy 05/31/25 05/30/25 History %) nasal spray symptoms lidocaine HCl 2 % mucosal solution 2.5 ml PO BID 05/31/25 Unknown History (Lidocaine Viscous) prednisone 1 mg tablet 4 mg PO DAILY 05/31/25 05/30/25 History ibuprofen 600 mg tablet 600 mg PO Q8H PRN PRN pain #20 06/08/25 Unknown Rx TABLETS Allergy/AdvReac Type Severity Reaction Status Date / Time adalimumab (From Humira) Allergy itching Verified 06/08/25 17:43 Family History Mother CHF (congestive heart failure) Father Cancer unsure Surgical History History of colonoscopy (~06/2021) Hx of cholecystectomy Social History Smoking Status: Former smoker ROS ROS ED Constitutional Constitutional ED: Denies chills or fever(s) Eyes Eyes: Reports blurry vision; Denies diplopia ENT ENT ED: Denies rhinorrhea or sore throat Cardiovascular Cardiovascular: Denies chest pain or palpitations Respiratory/Chest Respiratory/Chest: Denies cough or dyspnea Gastrointestinal Gastrointestinal: Denies nausea or vomiting Genitourinary Genitourinary ED: Denies dysuria or hematuria Musculoskeletal Musculoskeletal: Denies back pain or neck pain Integumentary Denies abscess or rash Neurologic Neurologic: Reports headache(s); Denies weakness Allergic/Immunologic Allergic/Immunologic ED: Denies mouth swelling or urticaria EXAM Physical Exam Const Vital Signs: 06/08/25 17:44 06/08/25 19:40 06/08/25 21:00 Temperature 98 F Temperature Source Oral Pulse Rate 78 78 70 Respiratory Rate 20 H 18 Blood Pressure 135/81 H 119/68 138/70 H Blood Pressure Mean 99 85 92 Pulse Ox 99 96 98 Oxygen Delivery Method Room Air 06/08/25 21:38 Temperature 98.6 F Temperature Source Pulse Rate 70 Respiratory Rate 18 Blood Pressure 138/70 H Blood Pressure Mean 92 Pulse Ox 98 Oxygen Delivery Method Positive well nourished and well developed General Appearance ED: well developed and NAD HEENT Reports moist mucous membranes Neck full ROM and supple Resp normal respiratory effort and clear to auscultation bilaterally Cardio regular rate and regular rhythm GI non-tender and non-distended Palpation: soft Extremity Extremity Narrative: There is mild tenderness and edema of the bilateral feet. There is no erythema or warmth. There is no discharge or drainage. There is good range of motion of the feet. Sensation was intact to light touch in all digits. Capillary refill was less than 2 seconds in all digits. Pedal pulses are equal bilaterally. General Extremety ED: Yes weight-bearing difficulty General Extremity: weight-bearing difficulty Neuro oriented x3, CN's II-XII intact bilaterally, moves all extremities and no sensory deficits noted Sensorium / Orientation: alert Motor Exam: strength 5/5 throughout Skin no wounds MDM MDM MDM Narrative Medical decision making narrative: Differential diagnosis includes arthritis, neuropathy, electrolyte abnormality, fracture, and tendinitis. X-rays of the bilateral foot will be obtained to assess for fracture and degenerative arthritis. CBC will be obtained to assess for leukocytosis and anemia. Basic metabolic profile will be obtained to assess for electrolyte abnormality renal function. Sed rate and CRP will be obtained to assess for acute phase reactants. Lab Data Attestation: I reviewed the patient's lab results. Lab results narrative: CBC was reviewed and was within normal. Basic metabolic profile was reviewed and was within normal limits. C-reactive protein was reviewed and was less than 3.0. Sed rate was reviewed and was normal at 15. Urinalysis was reviewed. There is no evidence of urinary tract infection or hematuria. Labs: Laboratory Results - last 24 hr 06/08/25 06/08/25 18:44 20:26 WBC 10.0 RBC 4.14 L Hgb 13.3 Hct 38.2 L MCV 92.3 MCH 32.1 H MCHC 34.8 RDW Std Deviation 45.4 H RDW Coeff of Sandra 13.3 Plt Count 191 MPV 9.2 Immature Gran % (Auto) 0.800 Neut % (Auto) 75.9 H Lymph % (Auto) 14.7 L [place] % (Auto) 8.2 Eos % (Auto) 0.0 Baso % (Auto) 0.4 Absolute Neuts (auto) 7.6 Absolute Lymphs (auto) 1.48 Nucleated RBC % 0 ESR 15 Sodium 140 Potassium 4.2 Chloride 107 Carbon Dioxide 21.9 Anion Gap 11 BUN 17 Creatinine 1.00 Estim Creat Clear Calc 78.09 Est GFR (MDRD) Non-Af 78 BUN/Creatinine Ratio 17.3 Glucose 90 Calcium 9.2 C-React Prot Ext Range < 3.00 Urine Color Yellow Urine Clarity Clear Urine pH 5.0 Ur Specific [place] 1.025 Urine Protein Negative Urine Glucose (UA) Normal Urine Ketones 5 H Urine Occult Blood Negative Urine Nitrite Negative Urine Bilirubin Negative Urine Urobilinogen Normal Ur Leukocyte Esterase Negative Urine RBC 0 SEEN Urine WBC 0 SEEN Ur Squamous Epith Cells 0 SEEN Urine Bacteria 0 SEEN Urine Mucus 0 SEEN Radiography Diagnostic Testing: Clinical Impression(s) from Imaging Studies Foot X-Ray 06/08/25 18:50 IMPRESSION: No acute osseous abnormality of either foot. Moderate osteoarthritis bilaterally. Reading Location: [facility] Foot X-Ray 06/08/25 18:50 IMPRESSION: No acute osseous abnormality of either foot. Moderate osteoarthritis bilaterally. Reading Location: [facility] X-rays of the left foot were obtained. There are 3 views. On my independent interpretation, there is no acute fracture. There is no dislocation. There is no soft tissue swelling. Radiologist also interpreted the x-rays and agrees. X-rays of the right foot were obtained. There are 3 views. On my independent interpretation, there is no acute fracture. There is no dislocation. There is no soft tissue swelling. Radiologist also interpreted the x-rays and agrees. Treatment and Re-Evaluation Narrative: Patient was given a dose of morphine and Zofran here. Patient was advised of his findings. Patient was instructed to ice and elevate his feet. Patient was given a prescription for a short course of ibuprofen. Patient was instructed to follow-up with his primary care physician in 5 to 7 days. Patient was instructed to return if worse in any way. Patient understood and was agreeable with the plan. All questions were answered. Prior to discharge, the patient felt that he was unsafe to take care of himself at home. Patient was able to ambulate but states his feet were very painful when he ambulated. Patient is concerned that he may fall at home. Case was discussed with the hospitalist. He will admit the patient for observation. Patient understood and was agreeable with the plan. All questions were answered. Discharge Plan Dx/Rx/DC Orders Clinical Impression: Adult failure to thrive, Bilateral foot pain, Elevated blood pressure reading Disposition Disposition: Acute Care Hospital [facility]
--- NOTE | 2025-06-08 18:50 | RAD_ITS ---
PROCEDURE: FOOT MIN 3 VIEWS 06/08/2025 REASON FOR EXAM: INJURY/PAIN TECHNIQUE: FOOT MIN 3 VIEWS COMPARISON: None FINDINGS: No acute fracture or traumatic malalignment in either foot. Joint space narrowing and osteophyte formation at the 1st metatarsophalangeal joints and throughout the interphalangeal joints bilaterally. Bone mineral density is subjectively normal. Vascular calcifications in the right ankle soft tissues.. RAD/Foot min 3 Views IMPRESSION: No acute osseous abnormality of either foot. Moderate osteoarthritis bilateral ly. Reading Location: [id number]
--- NOTE | 2025-06-08 18:50 | RAD_ITS ---
PROCEDURE: FOOT MIN 3 VIEWS 06/08/2025 REASON FOR EXAM: INJURY/PAIN TECHNIQUE: FOOT MIN 3 VIEWS COMPARISON: None FINDINGS: No acute fracture or traumatic malalignment in either foot. Joint space narrowing and osteophyte formation at the 1st metatarsophalangeal joints and throughout the interphalangeal joints bilaterally. Bone mineral density is subjectively normal. Vascular calcifications in the right ankle soft tissues.. RAD/Foot min 3 Views IMPRESSION: No acute osseous abnormality of either foot. Moderate osteoarthritis bilateral ly. Reading Location: [id number]
[2025-06-08 18:54] LABS: Hematocrit 38.2 % (40-54); Hemoglobin 13.3 g/dL (13.0-16.5); Immature Granulocytes Count 0.080 X10^3/uL (0.0-0.0); Mean Corp Hgb Conc 34.8 g/dL (32-36); Mean Corpuscular Volume 92.3 fL (80-94); Mean Platelet Vol. 9.2 fl (6.2-12.0); NRBC Flagged by Analyzer 0 % (0-5); Platelet Count 191 K/mm3 (150-450); RBC Distribution Width CV 13.3 % (11.6-14.6); RBC Distribution Width SD 45.4 fl (35.1-43.9); Red Blood Count 4.14 M/mm3 (4.6-6.2); White Blood Count 10.0 K/mm3 (4.4-11.0)
[2025-06-08 19:14] LABS: Anion Gap 11 (5-15); BUN 17 mg/dL (4-19); BUN/Creat Ratio 17.3 RATIO (10-20); CRP < 3.00 mg/L (0.0-3.0); Calcium,Total 9.2 mg/dL (7.6-11.0); Carbon Dioxide 21.9 mmol/L (21.0-32.0); Chloride 107 mmol/L (98-108); Estimated Creatinine Clearance 78.09 ml/min (50-250); Glucose 90 mg/dL (70-99); Potassium 4.2 mmol/L (3.3-5.1)
[2025-06-08 19:40] VITALS: BP 119/68; PULSE 78; O2SAT 96
[2025-06-08 20:32] LABS: Mucous, Urine 0 SEEN /hpf (<or=2+); Red Blood Cells-Urine 0 SEEN /hpf (0-5); Squamous Epithelial Cells - UA 0 SEEN /hpf (0-5)
[2025-06-08 20:34] LABS: Color, Urine Yellow (Yellow); Glucose, Dipstick Normal (Normal); Ketone-Dipstick 5 mg/dl (Negative); Leukocyte Esterase-Dipstick Negative /ul (Negative); Nitrite-Dipstick Negative (Negative); Occult Blood-Urine Negative /ul (Negative); Protein-Dipstick Negative (Negative); Specific Gravity, Urine 1.025 (1.002-1.030); Urine Bilirubin Dipstick Negative (Negative)
[2025-06-08 21:00] VITALS: BP 138/70; PULSE 70; RESP 18; O2SAT 98
[2025-06-08 21:38] VITALS: BP 138/70; PULSE 70; RESP 18; TEMP 37; O2SAT 98
--- NOTE | 2025-06-08 21:38 | HP.PCM.HOS_ITS ---
[facility] - General General Date of Admission: 06/08/25 Date of Service: 06/08/25 Chief Complaint: Pain in Feet with Inability to Ambulate. 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 Crohn's disease (with B-12 level of 515 pg/mLthis admission); with patient started on gabapentin earlier today, history of DVT, history of Zenker's diverticulum, history of esophageal obstruction due to food impaction, history of epiploic appendagitis, history of cholecystectomy,history of bronchial asthma; on as needed albuterol, BPH, history of IBS; of constipation-type; on polyethylene glycol, history of oral thrush; on fluconazole plus clotrimazole, GERD; on famotidine and esomeprazole and OA; on ibuprofen every 8 hours as needed who presents to [facility] ER complaining of pain in both of his feet with inability to ambulate. Mr. Guillen reports his symptoms began ~3 weeks prior to admission with the gradual-onset of progressively worsening bilateral foot pain that is made worse with weight-bearing and walking. He states the pain from his heels up through his arches and into his toes. He denies associated injury to his feet, recent trauma or similar previous episodes. He states he was recently evaluated by his physician at the [facility], started on gabapentin for presumed neuropathic pain in his feet with patient was taking his first dose and then waking up feeling worse with dizziness and disorientation in addition to ongoing unrelenting pain in his feet so he decided to come in for further evaluation and treatment. He was treated with ondansetron IV plus morphine IV in the ER with continued pain and feeling unsafe to go home with patient subsequently requesting admission to the ER physician with called and made to the hospitalist service. He underwent x- rays of both feet in the ER which were negative for acute fracture, dislocation or soft tissue swelling. He also had a CRP less than 3 and an ESR of 15 with no leukocytosis or obvious signs of infection. He admits to nausea and severe bilateral foot pain made worse with activity but not fully relieved by rest. He denies associated fever, chills, vomiting, diarrhea, constipation, abdominal pain, chest pain, palpitations, heart racing, shortness of breath, cough, headache or rash. In the ER he was diagnosed with severe Bilateral Foot Pain; presumably due to Severe Neuropathy with no signs of acute traumatic injury or infection but causing Generalized Weakness with Ambulatory Dysfunction and he was then admitted to the general medical floor under observation status for a stay that is expected to be less than 2 midnights. [facility] Medical History (Updated 06/09/25 @ 04:[address] Diomedes Fitzpatrick, DO) Depression Former smoker CPAP (continuous positive airway pressure) dependence Zenkers diverticulum BPH (benign prostatic hyperplasia) History of DVT (deep vein thrombosis) GERD (gastroesophageal reflux disease) Former smoker Sleep apnea Chest pain Asthma IBS (irritable bowel syndrome) Crohn's disease Home Medications ?Medication ?Instructions ?Recorded ?Last Taken ?Type benralizumab 10 mg/0.5 mL 30 mg subcut Q8W 05/29/25 History subcutaneous syringe (Fasenra) polyethylene glycol 3350 17 4 g PO ONCE 05/29/2505/30 History gram/dose oral powder (Miralax) vedolizumab 300 mg intravenous mg .Route 05/29/2508/19 History solution (Entyvio) albuterol sulfate 90 mcg/actuation 2 inh inhalation Q4 H PRN shortness 05/31/25 05/17/25 History breath activated powder inhaler of breath bisacodyl 5 mg tablet 5 mg PO QODAY 05/31/2505/30 History dicyclomine 20 mg tablet 20 mg PO 4X/DAY 05/31/2506/18 History esomeprazole magnesium 40 mg 40 mg PO DAILY 05/31/25 0 05/31/25 History capsule,delayed release famotidine 20 mg tablet (Acid 20 mg PO QHS 05/31/25 History Controller) ipratropium bromide 42 mcg (0.06 2 spray intranasal TI D PRN allergy 05/31/25 05/30/25 History %) nasal spray symptoms prednisone 1 mg tablet 4 mg PO DAILY 05/31/2505/30 History fluticasone furoate 200 1 inh inhalation DAILY 06/08 Unknown History mcg-vilanterol 25 mcg/dose inhalation powder (Breo Ellipta) ibuprofen 600 mg tablet 600 mg PO Q8H PRN PRN pain # 20 06/08/25 Unknown Rx TABLETS Allergy/AdvReac Type Severity Reaction Status Date / Time adalimumab (From Humira) Allergy itching Verified 06/08/25 17:43 Family History Mother CHF (congestive heart failure) Father Cancer unsure Surgical History History of colonoscopy (~06/2021) Hx of cholecystectomy Social History Smoking Status: Former smoker ROS ROS Narrative Review of Systems: Constitutional: Patient denies fever or chills. Eyes: Patient denies changes in vision or discharge from eyes. ENT: Patient denies runny nose, sore throat or ear pain. Resp: Patient denies shortness of breath or cough. CV: Patient denies chest pain, palpitations, heart racing or LE edema. GI: Patient admits to nausea but he denies vomiting, abdominal pain, diarrhea or constipation. : Patient denies dysuria or hematuria. MSK: Patient admits to severe bilateral foot pain as per HPI. Skin: Patient denies rash, abscess, wounds or jaundice. Psych: Patient denies symptoms of uncontrolled depression or anxiety. Neuro: Patient admits to bilateral foot pain as per HPI but he denies headache or focal neurologic deficits. Allergy: Patient denies lip swelling, tongue swelling or urticaria. Hematology: Patient denies easy bleeding or easy bruisability. Endocrinology: Patient denies polyuria, polydipsia, polyphagia or heat/cold intolerance. 14 point ROS otherwise negative except for positives noted above in HPI. Vital Signs Vital Signs Vital Signs: 06/08/25 17:44 06/08/25 19:40 Temperature 98 F Temperature Source Oral Pulse Rate 78 78 Respiratory Rate 20 H Blood Pressure 135/81 H 119/68 Blood Pressure Mean 99 85 Pulse Ox 99 96 Oxygen Delivery Method Room Air Weight Weight: 250 lb 7.122 oz Body Mass Index (BMI) 35.9 Physical Exam Const alert and oriented x3 Constitutional Narrative: Obese with mild distress noted made worse with activity. General Appearance: cooperative HEENT normocephalic, head/scalp atraumatic, hearing grossly normal bilaterally and moist oral mucous membranes Eyes PERRL and EOMs intact bilaterally Neck no lymphadenopathy, supple and no JVD Resp normal respiratory effort, no retractions, no use of accessory muscles and clear to auscultation bilaterally Cardio regular rate and regular rhythm GI normal to inspection, nondistended, normoactive bowel sounds, soft to palpation, non-tender and non-distended GI Narrative: Obese. Extremity Extremity Narrative: Patient is complaining of bilateral foot pain with no signs of trauma, infection or acute dislocation. Skin Skin Narrative: Patient has no evidence of rash, abscess, wounds or jaundice. Neuro oriented x3, CN's II-XII intact bilaterally, moves all extremities and no focal motor deficits Neuro Narrative: Patient is complaining of bilateral foot pain with no signs of trauma, infection or acute dislocation. Sensorium / Orientation: awake, alert, oriented to person, oriented to place and oriented to time Speech: speech normal Psych affect normal Results Medical Records Data Attestation: I reviewed the patient's medical records Lab / Micro Data Attestation: I reviewed the patient's lab results. 06/08/25 18:44 06/08/25 18:44 Labs: Laboratory Results - last 24 hr 06/08/25 18:44: WBC 10.0, RBC 4.14 L, Hgb 13.3, Hct 38.2 L, MCV 92.3, MCH 32.1 H , MCHC 34.8, RDW Std Deviation 45.4 H, RDW Coeff of Sandra 13.3, Plt Count 191, MPV 9.2, Immature Gran % (Auto) 0.800, Neut % (Auto) 75.9 H, Lymph % (Auto) 14.7 L, [place] % (Auto) 8.2, Eos % (Auto) 0.0, Baso % (Auto) 0.4, Absolute Neuts (auto) 7.6, Absolute Lymphs (auto) 1.48, Nucleated RBC % 0, ESR 15, Sodium 140, Potassium 4.2, Chloride 107, Carbon Dioxide 21.9, Anion Gap 11, BUN 17, Creatinine 1.00, Estim Creat Clear Calc 78.09, Est GFR (MDRD) Non-Af 78, BUN/Creatinine Ratio 17.3, Glucose 90, Calcium 9.2, C-React Prot Ext Range < 3.00 06/08/25 20:26: Urine Color Yellow, Urine Clarity Clear, Urine pH 5.0, Ur Specific [place] 1.025, Urine Protein Negative, Urine Glucose (UA) Normal, Urine Ketones 5 H, Urine Occult Blood Negative, Urine Nitrite Negative, Urine Bilirubin Negative, Urine Urobilinogen Normal, Ur Leukocyte Esterase Negative, Urine RBC 0 SEEN, Urine WBC 0 SEEN, Ur Squamous Epith Cells 0 SEEN, Urine Bacteria 0 SEEN, Urine Mucus 0 SEEN Imaging Radiology Impression Foot X-Ray 06/08/25 18:50 IMPRESSION: No acute osseous abnormality of either foot. Moderate osteoarthritis bilaterally. Reading Location: [facility] Foot X-Ray 06/08/25 18:50 IMPRESSION: No acute osseous abnormality of either foot. Moderate osteoarthritis bilaterally. Reading Location: [id number] Assessment & Plan Assessment/Plan (1) Bilateral foot pain: (2) Neuropathy: (3) Adverse drug reaction: QUALIFIERS: Encounter type: initial encounter Qualified Code(s): T50.905A - Adverse effect of unspecified drugs, medicaments and biological substances, initial encounter (4) Generalized weakness: (5) Ambulatory dysfunction: (6) Obesity (BMI 30-39.9): (7) History of Crohn's disease: PLAN: Plan 1. Bilateral foot pain; presumably due to severe neuropathy (not from B-12 deficiency with level of 515 pg/mL present on admission) with patient recently started on gabapentin with subsequent Adverse Drug Reaction - Admit to general medical floor under observation status. Hold gabapentin in case of adverse drug reaction worsening his symptoms. Start pregabalin 50 mg p.o. 3 times daily and titrate as needed to control symptoms. Give acetaminophen as needed for [id number] (level 1-5/10) pain or fever. Give morphine IV as needed for severe (level 6-10/10) pain. 2. Generalized Weakness with Ambulatory Dysfunction attributable to #1 - PT/OT and Case Management consult and treat on rounds in a.m. as patient may likely require rehabilitation, with help appreciated advance. 3. Obesity (class II); with BMI of 35.9 this admission plus FABIANO; on CPAP adding to the burden of disease outlined #1 & #2 - Weight loss will be recommended. Check TSH. Maintain nocturnal CPAP as before. This complicates his case and may hamper recovery. 4. History of Crohn's disease; on benralizumab, vedolizumab and prednisone adding to the medical complexity of #1 - #3 - Resume home regimen to prevent acute flare. 5. History of DVT - Noted. Check D-dimer. 6. History of bronchial asthma; on as needed albuterol - Stable with no evidence of acute flare at this time. Continue as needed albuterol. 7. History of Zenker's diverticulum - Noted with no complaints related to this issue at this time. 8. History of esophageal obstruction due to food impaction - Noted. 9. History of epiploic appendagitis - Noted. 10. History of cholecystectomy - Noted. 11. BPH - Stable. 12. History of IBS; of constipation-type; on polyethylene glycol - Continue present therapy. 13. History of oral thrush; on fluconazole plus clotrimazole - Maintain current treatment. 14. GERD; on famotidine and esomeprazole - Resume H2-ambrosio and PPI. 15. OA; on ibuprofen every 8 hours as needed - We will follow pain regimen and scales outlined in #1. 16. DVT prophylaxis - Enoxaparin 40 mg subcu daily. Total time: Approximately (but not less than) 70 minutes. Charges/Coding Visit Charges OBSV E&M: 09867 Observ/hosp same date L2
--- NOTE | 2025-06-08 21:58 | CASEMGMT ---
Care Management Face to Face with patient for initial transition planning/care coordination assessment in the ED. This service writer introduced self and role at [facility]. Patient alert and oriented. Patient willing to participate in assessment and is able to answer all questions appropriately. Care providers, pharmacy, and demographics verified. Admitting Diagnosis: Bilateral foot pain; presumably due to severe neuropathy Other diagnosis history: Crohn's disease, neuropathy in feet, DVT, GERD PCP: Trey Specialists: none [facility]erred [facility]acy: [facility] Insurance: [place] Prescription Benefit: yes Living Will/HPOA: yes, but not on file. Believes sisterTiana, is primary with daughter, Fredrick, as secondary. States sister intends to bring in documents. LNOK: sisterTiana. DaughterFredrick. Living Arrangements: lives alone in a one story home with one step to enter; independent with all ADLs/IADLs, but that has been decreasing over the last 3 weeks with increasing foot pain. Transportation: patient drives. DME: CPAP HHC: none SNF/Rehab: none Community Resources: none Patient goals: Patient wishes to discharge home with possible HHC desired. Patient denies any further needs or concerns at this time. Disposition Plan: admission to acute; RN CM/SW to follow for discharge planning needs that may arise. Randa Hamm, [employer] STATISTICAL PROGRAMMER, PATIENT CARE DIRECTOR
--- OUTSIDE RECORDS SUMMARY | 2025-06-08 22:25 | XMS RPT_ITS | CCD ---
Author Organization [facility] ion [facility] Care Team Providers Care Cable Assembler Name Role Phone LANZINGER , TONIO DONALDSON Unavailable Unav ailable LANZINGER JR, TONIO DONALDSON Unavailable Unav ailable LANZINGER JR, TONIO DONALDSON Unavailable Unav ailable LANZINGER JR, TONIO DONALDSON Unavailable Unav ailable LANZINGER JR, TONIO DONALDSON Unavailable Unav ailable GURAN, BRIDGET Unavailable Unavailable LANZINGER JR, TONIO DONALDSON Unavailable Unav ailable LANZINGER JR, TONIO DONALDSON Unavailable Unav ailable LANZINGER JR, TONIO DONALDSON Unavailable Unav ailable LANZINGER JR, TONIO DONALDSON Unavailable Unav ailable LANZINGER JR, TONIO DONALDSON Unavailable Unav ailable LANZINGER JR, TONIO DONALDSON Unavailable Unav ailable LANZINGER JR, TONIO DONALDSON Unavailable Unav ailable LANZINGER JR, TONIO DONALDSON Unavailable Unav ailable LANZINGER, TONIO Unavailable Unavailable IMCA Unavailable Unavailable Guillen, Shannan H Unavailable Unavailable LANZINGER, TONIO Unavailable Unavailable Guillen, Shannan H Unavailable Unavailable LANZINGER, TONIO Unavailable Unavailable LANZINGER, TONIO Unavailable Unavailable Guillen, Shannan H Unavailable Unavailable LANZINGER, TONIO Unavailable Unavailable LANZINGER, TONIO Unavailable Unavailable Guillen, Shannan H Unavailable Unavailable LANZINGER, TONIO Unavailable Unavailable LANZINGER, TONIO Unavailable Unavailable Guillen, Shannan H Unavailable Unavailable LANZINGER, TONIO Unavailable Unavailable IMCA Unavailable Unavailable Guillen, Shannan H Unavailable Unavailable GURAN, BRIDGET Unavailable Unavailable LANZINGER, TONIO Unavailable Unavailable Guillen, Shannan H Unavailable Unavailable LANZINGER, TONIO Unavailable Unavailable IMCA Unavailable Unavailable Guillen, Shannan H Unavailable Unavailable LANZINGER, TONIO Unavailable Unavailable LANZINGER, TONIO Unavailable Unavailable Guillen, Shannan H Unavailable Unavailable LANZINGER, TONIO Unavailable Unavailable LANZINGER, TONIO Unavailable Unavailable Guillen, Shannan H Unavailable Unavailable DOMINIQUE HERRERA Attending Unavailable SHANNAN RAYMUNDO Consulting Unavailable JAVIER, DOMINIQUE C Admitting Unavailable JAVIER, DOMINIQUE C Primary Care Unavailable PROVIDER, UNKNOWN Consulting Unavailable JAVIER, DOMINIQUE C Attending Unavailable JAVIER, DOMINIQUE C Admitting Unavailable SCHINNER, SHANNAN E Consulting Unavailable JAVIER, DOMINIQUE C Primary Care Unavailable PROVIDER, UNKNOWN Consulting Unavailable JAVIER, DOMINIQUE C Attending Unavailable JAVIER, DOMINIQUE C Admitting Unavailable SCHINNER, SHANNAN E Consulting Unavailable JAVIER, DOMINIQUE C Primary Care Unavailable PROVIDER, UNKNOWN Consulting Unavailable DO Marlene Corea Primary Care Provider [phone] Dr. He Diaz Attending Provider Jaycob Yang MD Primary Care Provider [phone] SHANNAN GUILLEN Primary Care Unavailable MALOU VILLAGOMEZ Attending Unavailable GREG CADENA DO Attending Unavailable PHYSICIAN, NOT RECORDED Primary Care Unavaila eulogio Yang MD, Jaycob Primary Care Provider [phone] Katerin LOVELL, Dr. Valerie Deutsch Attending Provider [phone] Valerie Conklin MD Referring Provider Provider, Ed Physician Emergency Provider Jaycob Cornell MD Primary Care Provider [phone] Provider, Ed Physician Attending Provider Jaycob Cornell MD Referring Provider [phone] Dr. Barrington Sanchez DO Emergency Provider [phone] Dr. Geovani Ramirez DO Attending Provider Dr. Geovani Ramirez DO Other Provider [phone] Barrington Mclaughlin Attending Provider Barrington Mclaughlin Referring Provider Jaycob Yang MD Attending Provider [phone] Lashawn Gutierrez Attending Provider Dr. Lewis Turpin DO Emergency Provider [phone] Lewis Turpin Attending Unavailable Trey, Chalon Primary Care Unavailable Geovani Ramirez Attending Unavailable Trey, Jaycob Referring Unavailable Trey, Chalon Primary Care Unavailable Holguin, Eric Attending Unavailable Barrington Holguin Referring Unavailable Trey, Chalon Primary Care Unavailable TreyAlenaon Attending Unavailable Trey, Chalon Referring Unavailable Trey, Chalon Primary Care Unavailable Provider, Ed Physician Attending Unavailab le Trey, Chalon Primary Care Unavailable Trey, Chalon Primary Care Unavailable Jane Resendizadee Attending Unavailabl e Downs, Parwaiz Referring Unavailable Trey, Chalon Primary Care Unavailable NagaJane shermanadee Attending Unavailabl e Downs, Parwaiz Consulting Unavailable Downs, Parwaiz Referring Unavailable Friend, Geovani Consulting Unavailable Friend, Geovani Attending Unavailable Trey, Chalon Referring Unavailable Trey, Chalon Primary Care Unavailable Lashawn Castillo Attending Unavailable Trey, Chalon Referring Unavailable Trey, Chalon Primary Care Unavailable Trey, Chalon Attending Unavailable Trey, Chalon Referring Unavailable Trey, Chalon Primary Care Unavailable Trey, Chalon Primary Care Unavailable Jolliff, Valerie S Attending Unavailable Jolliff, Valerie S Referring Unavailable Trey, Chalon Primary Care Unavailable Downs, Parwaiz Attending Unavailable Downs, Parwaiz Referring Unavailable Barrington Sanchez Attending Unavailable Trey, Chalon Primary Care Unavailable Allergies Allergy Classification Reported Allergen(s) Allergy Type Date of Onset Reaction(s) Facility (15 sources) adalimumab; Translations: [ADALIMUMAB] Drug Allergy 1 Itching [facility] (8 sources) Ibuprofen; Translations: [IBUPROFEN] Drug Allergy 1 GI Upset [facility] (1 source) Ibuprofen Drug Allergy [facility] (2 sources) azaTHIOprine; Translations: [AZATHIOPRINE] Drug Allergy 4 GI Upset, Vomiting [facility] (2 sources) Escitalopram; Translations: [ESCITALOPRAM] Drug Allergy 0 Other: See Comments [facility] (1 source) adalimumab Drug Allergy 5 [facility] Medications Current Medications Medication Drug Class(es) Dates Sig (Normalized) Sig (Original) acetaminophen 24 mg/ml / codeine phosphate 2.4 mg/ml oral solution (1 source) Opioid Agonist take 5 mL by mouth every eight hours as needed acetaminophen with codeine (ACETAMINOPHEN-CODE INE) 120 mg-12 mg /5 mL (5 mL) Take 5 mL by mouth every 8 hours as needed. Active 200 actuat albuterol 0.09 mg/actuat dry powder inhaler (18 sources) beta2-Adrenergic Agonist Start: 05-31-2025 Albuterol Sulfate 90 mcg/actuation aerosol powdr breath activated Active 2 NMA INHALATION Q4H as needed for shortness of breath May 31, 2025 12:00am Start: 11-30-2019 take 1 puff(s) by in halation every four hours as needed Albuterol Sulfate Active 1 PUFF INHALATION EVERY 4 HOURS NEEDED November 30, 2019 12:00am Start: 07-19-2016 End: 05-29-2025 Albuterol Sulfate 2.5 MG/3ML solution for nebulization Discontinued 1 NMA INHALATION EVERY 4 HOURS NEEDED as needed for Sob &/Or Wheezing November 30, 2019 1:00am May 29, 2025 1:05pm take 2 puff(s) by in halation every six hours as needed for wheezing albuterol HFA (PROVENTIL HFA, VENTOLIN HFA) 90 mcg/actuation inhaler Inhale 2 Puffs as instructed every 6 hours as needed for wheezing/shortness of breath. Active ALBUTEROL INHALA TION Inhale 2 Puffs as instructed as needed. Active aluminum hydroxide 80 mg/ml / magnesium hydroxide 80 mg/ml / simethicone 8 mg/ml oral suspension (1 source) take 10 mL by mouth every six hours as needed aluminum & magnesium hydroxide-simethicone (MAALOX PLUS EXTRA STRENGTH) 400-400-40 mg/5 mL suspension Take 10 mL by mouth every 6 hours as needed (heartburn/indigestion). Active 1 ml benralizumab 30 mg/ml prefilled syringe (1 source) Interleukin-5 Receptor alpha-directed Cytolytic Antibody benralizumab (FASENR A) 30 mg/mL injection Inject 30 mg subcutaneously every 8 weeks. Active Benralizumab (3 sources) Start: Benralizumab (Fasenra) 10 mg/0.5 mL syringe Active 30 mg SC every 8 weeks May 29, 2025 12:00am start week 16 of treatment bisacodyl 5 mg delayed release oral tablet (16 sources) Stimulant Laxative Start: take 1 tablet by mouth once daily Bisacodyl 5 mg tablet Active 5 mg PO DAILY May 31, 2025 12:00am Start: 04-19-2021 End: 05-29-2025 take 2 tablets by mouth once daily Bisacodyl 5 mg Tablet Discontinued 10 mg PO DAILY April 19, 2021 12:00am May 29, 2025 1:05pm constipation Start: 04-19-2021 take 10 mg by mouth once daily Bisacodyl Active 10 MG PO DAILY April 18, 2021 11:00pm budesonide 0.25 mg/ml inhalation suspension (2 sources) Corticosteroid Start: 07-19-2016 budesonide (PU LMICORT) 0.5 mg/2 mL nebulizer solution Use 2 mL via nebulizer twice daily. 07/19/2016 Active budesonide, ente fabio coated (ENTOCORT EC) 3 mg 24 hr capsule Take 3 mg by mouth once daily. 3 capsules by mouth every day for 30 days then, 2 capsules by mouth every day for 30 days then, 1 capsule by mouth every day for 30 days for Crohn's disease. Active cetirizine hydrochloride 10 mg oral tablet (1 source) Histamine-1 Receptor Antagonist Start: 10-02-2004 ZYRTEC 10MG TABLET NEEDED 0 0 10/02/2004 Active clotrimazole 10 mg oral lozenge (2 sources) Azole Antifungal Start: 05-31-2025 Clotrimazole 10 mg alexandra Active 10 mg MUCOUS MEM 4 TIMES DAILY May 31, 2025 12:00am dicyclomine hydrochloride 20 mg oral tablet (6 sources) Anticholinergic Start: 05-31-2025 take 1 tablet by mouth four times daily Dicyclomine 20 mg tablet Active 20 mg PO 4 TIMES DAILY May 31, 2025 12:00am Start: 05-29-2025 End: 05-31-2025 take 1 capsule by mouth twice daily Dicyclomine 10 mg capsule Discontinued 10 mg PO TWICE A DAY May 29, 2025 12:00am May 31, 2025 9:27am take 1 tablet by elzbieta th every six hours as needed dicyclomine (BENTYL) 20 mg tablet Take 20 mg by mouth four times a day as needed (abdominal pain). Active diphenhydrAMINE hydrochloride 2.5 mg/ml oral solution (2 sources) Histamine-1 Receptor Antagonist Start: 05-31-2025 take 6.25 mg by mouth twice daily Diphenhydramine Hcl 12.5 mg/5 mL liquid Active 6.25 mg PO TWICE A DAY May 31, 2025 12:00am escitalopram 5 mg oral tablet (1 source) Serotonin Reuptake Inhibitor take 1 tablet by mouth once daily escitalopram oxalate (LEXAPRO) 5 mg tablet Take 5 mg by mouth once daily. Active esomeprazole 40 mg delayed release oral capsule (3 sources) Proton Pump Inhibitor Start: 05-31-2025 take 1 capsule by mouth once daily Esomeprazole Magnesium 40 mg capsule,delayed release(DR/EC) Active 40 mg PO DAILY May 31, 2025 12:00am take [address] [facility] twice daily before mealtime esomeprazole (NEXIUM) 40 mg capsule Take 40 mg by mouth two times a day before meals. Active famotidine 20 mg oral tablet (3 sources) Histamine-2 Receptor Antagonist Start: 05-31-2025 take 1 tablet by mouth once daily Famotidine (Acid Controller) 20 mg tablet Active 20 mg PO DAILY May 31, 2025 12:00am End: 08-17-2024 take 1 tablet by mouth once daily at bedtime famotidine (PEPCID) 20 mg tablet Take 20 mg by mouth daily at bedtime. 08/17/2024 Discontinued (Discontinued by Patient) fluconazole 100 mg oral tablet (4 sources) Azole Antifungal Start: 05-31-2025 take 1 tablet by mouth every twenty-four hours Fluconazole 100 mg tablet Active 100 mg PO Q24H May 31, 2025 12:00am Start: 05-31-2025 take 1 tablet by elzbieta once daily Fluconazole 200 mg tablet Active 200 mg PO DAILY 10 10 0 May 31, 2025 12:00am Fluticasone Furoate-Vilanterol (14 sources) Corticosteroid, beta2-Adrenergic Agonist Start: 04-04-2019 take 1 dose by inhalation once daily Fluticasone Furoate-Vilanterol (Breo Ellipta) 1 EACH blister with device Active 1 EACH IH DAILY April 04, 2019 5:49pm Start: 04-04-2019 End: 05-31-2025 take 1 dose by inhalation once daily Fluticasone Furoate-Vilanterol (Breo Ellipta) 1 EACH blister with device Discontinued 1 NMA IH DAILY April 04, 2019 12:00am May 31, 2025 9:30am Start: 04-04-2019 take 1 dose by inhal ation once daily Fluticasone Furoate-Vilanterol (Breo Ellipta) 1 EACH blister with device Active 1 NMA IH DAILY April 04, 2019 12:00am Start: 04-04-2019 take 1 dose by inhal ation once daily Fluticasone Furoate-Vilanterol (Breo Ellipta) 1 EACH blister with device Active 1 EACH IH DAILY April 03, 2019 11:00pm Start: 04-04-2019 take 1 dose by inhal ation once daily Fluticasone Furoate-Vilanterol (Breo Ellipta) 1 EACH blister with device Active 1 EACH IH DAILY April 04, 2019 12:00am fluticasone-edel nterol (BREO ELLIPTA) 200-25 mcg/dose inhaler Inhale 1 Inhalation as instructed once daily. Active ipratropium bromide 0.042 mg/actuat metered dose nasal spray (2 sources) Anticholinergic Start: 05-31-2025 Ipratropium [place] 42 mcg (0.06 %) spray,non-aerosol Active 2 NMA INTRANASAL THREE TIMES A DAY as needed for allergy symptoms May 31, 2025 12:00am Lidocaine (2 sources) Antiarrhythmic, Amide Local Anesthetic Start: 05-31-2025 take 1 mL by mouth twice daily Lidocaine Hcl (Lidocaine Viscous) 2 % solution Active 2.5 mL PO TWICE A DAY May 31, 2025 12:00am mesalamine (7 sources) Aminosalicylate Start: 04-19-2021 take 2400 mg by mouth once daily Mesalamine Active 2400 MG PO DAILY April 19, 2021 10:30pm Start: 04-19-2021 take 2400 mg by mout h once daily Mesalamine Active 2400 MG PO DAILY April 18, 2021 11:00pm Start: 04-19-2021 take 2400 mg by mout h once daily Mesalamine Active 2400 MG PO DAILY April 19, 2021 12:00am Mesalamine (LIAL DA) 1.2 gram EC tablet Take 2,400 mg by mouth two times a day with meals. Active nystatin 315808 unt/ml oral suspension (2 sources) Polyene Antifungal Start: 05-29-2025 Nystatin 10 0,000 unit/mL suspension Active 712500 U BUCCAL .qid 250 7 0 May 29, 2025 12:00am June 04, 2025 12:00am By mouth 4 times daily; swish in the mouth and retain for as long as possible (several minutes) before swallowing- once symptoms resolve continue to use for 48 hours polyethylene glycol 3350 03804 mg powder for oral solution (17 sources) Osmotic Laxative Start: 05-29-2025 Polyethylene Glycol 3350 (Miralax) 17 gram/dose powder Active 4 g PO ONCE May 29, 2025 12:00am Start: 04-19-2021 End: 05-29-2025 take 17 g by mouth once daily Polyethylene Glycol 3350 17 gram Powder In Packet Discontinued 17 g PO DAILY April 19, 2021 12:00am May 29, 2025 1:04pm constipation polyethylene gly col 3350 17 gram packet Take 17 g by mouth two times a day. Dissolve dose in 4 - 8 ounces of liquid and take as directed. Active predniSONE 1 mg oral tablet (20 sources) Start: 05-31-2025 take 4 tablets by mouth once daily Prednisone 1 mg tablet Active 4 mg PO DAILY May 31, 2025 12:00am Start: 05-29-2025 End: 05-31-2025 Prednisone 20 mg tablet Disc ontinued 40 mg PO As Directed May 29, 2025 12:00am May 31, 2025 9:29am Start: 11-30-2019 End: 10-10-2021 take 4 tablets by mouth once daily Prednisone 1 MG tablet Discontinued 4 mg PO DAILY November 30, 2019 1:00am October 10, 2021 2:08pm inflammation Start: 11-30-2019 End: 10-10-2021 take 4 mg by mouth once daily Prednisone Discontinued 4 MG PO DAILY November 30, 2019 12:00am October 10, 2021 1:08pm Start: 07-19-2016 take 1 tablet by elzbieta th once daily predniSONE (DELTASONE) 10 mg tablet Take 1 tablet by mouth once daily. 18 tablet 0 07/19/2016 Active Start: 04-12-2015 End: 08-13-2016 take 3 tablets by mouth once daily Prednisone 20 MG tablet Discontinued 60 mg PO DAILY April 12, 2015 12:00am August 13, 2016 9:11am Start: 04-12-2015 End: 08-13-2016 take 60 mg by mouth once daily Prednisone Discontinued 60 MG PO DAILY April 11, 2015 11:00pm August 13, 2016 8:11am vedolizumab 300 mg injection (3 sources) Integrin Receptor Antagonist Start: 05-29-2025 Vedolizumab (Entyvio ) 300 mg recon soln Active mg .Route May 29, 2025 12:00am every 8 weeks Completed/Discontinued Medications Medication Drug Class(es) Dates Sig (Normalized) Sig (Original) acetaminophen 325 mg / HYDROcodone bitartrate 5 mg oral tablet (20 sources) Opioid Agonist Start: 03-29-2022 End: 05-29-2025 Hydrocodone-Acetamino phen 5-325 mg tablet Discontinued 1 {tbl} PO EVERY 6 HOURS as needed for pain 12 3 0 March 29, 2022 May 29, 2025 1:04pm Postoperative pain Other acute postprocedural pain Start: 03-29-2022 take 1 tablet by elzbieta th every six hours Hydrocodone-Acetaminophen Active 1 TABLE T PO EVERY 6 HOURS 12 3 March 29, 2022 Start: 08-07-2021 End: 10-10-2021 Hydrocodone-Acetaminophen 5- 325 mg tablet Discontinued 1 {tbl} PO EVERY 6 HOURS NEEDED as needed for Pain 12 3 0 August 07, 2021 October 10, 2021 2:08pm Abdominal pain Unspecified abdominal pain Start: 08-07-2021 End: 10-10-2021 Hydrocodone-Acetaminophen 2. 5-325 mg tablet Discontinued 1 {tbl} PO EVERY 6 HOURS as needed for pain 12 3 0 August 07, 2021 October 10, 2021 2:08pm Epiploic appendagitis Other specified diseases of intestine Start: 08-07-2021 End: 10-10-2021 take 1 tablet by mouth every six hours as needed Hydrocodone-Acetaminophen Discontinued 1 TABLET PO EVERY 6 HOURS NEEDED 10 27August 07, 2021 October 10, 2021 1:08pm Start: 08-07-2021 End: 10-10-2021 take 1 tablet by mouth every six hours Hydrocodone-Acetaminophen Discontinued 1 TABLET PO EVERY 6 HOURS 12 August 07, 2021 October 10, 2021 1:08pm acetaminophen 325 mg / oxyCODONE hydrochloride 5 mg oral tablet (13 sources) Opioid Agonist Start: 12-02-2019 End: 12-05-2019 Oxycodone-Acetaminophen 1 TABLET tablet Discontinued 1 {tbl} PO EVERY 6 HOURS NEEDED as needed for Pain 12 3 0 December 02, 2019 December 04, 2019 1:00am December 05, 2019 1:09am Abdominal pain Unspecified abdominal pain Start: 12-02-2019 End: 12-05-2019 take 1 tablet by mouth every six hours as needed Oxycodone-Acetaminophen Discontinued 1 TABLET PO EVERY 6 HOURS NEEDED 12 3 December 02, 2019 December 05, 2019 12:09am gabapentin 300 mg oral capsule (1 source) Anti-epileptic Agent End: 08-17-2024 take 1 capsule by mouth three times daily gabapentin (NEURONTIN) 300 mg capsule Take 300 mg by mouth three times daily. 08/17/2024 Discontinued (Discontinued by Patient) meloxicam 15 mg oral tablet (1 source) Nonsteroidal Anti-inflammatory Drug Start: 07-08-2018 End: 08-17-2024 take 1 tablet by mouth once daily at mealtime meloxicam (MOBIC) 15 mg tablet Take 1 tablet by mouth daily with food. 30 tablet 07/08/2018 08/17/2024 Discontinued (Discontinued by Patient) Mesalamine 400 mg Capsule,Delayed Release(Dr/Ec) (7 sources) Start: 04-19-2021 End: 05-29-2025 Mesalamine 400 mg Capsule,Delayed Release(Dr/Ec) Discontinued 2400 mg PO DAILY April 19, 2021 12:00am May 29, 2025 1:13pm Crohns Start: 04-19-2021 Mesalamine 400 mg Capsule,Delayed Release(Dr/Ec) Active 2400 mg PO DAILY April 19, 2021 12:00am Crohns Start: 04-19-2021 Mesalamine 400 mg Capsule,Delayed Release(Dr/Ec) Active 2400 mg PO DAILY April 19, 2021 12:00am Mesalamine 400 mg capsule,delayed release(DR/EC) (3 sources) Start: 05-29-2025 End: 05-31-2025 Mesalamine 400 mg capsule,delayed release(DR/EC) Discontinued 2400 mg PO DAILY May 29, 2025 1:04pm May 31, 2025 9:30am Crohns Start: 05-29-2025 Mesalamine 400 mg capsule,delayed release(DR/EC) Active 2400 mg PO DAILY May 29, 2025 1:04pm Crohns omeprazole 40 mg delayed release oral capsule (14 sources) Proton Pump Inhibitor Start: 04-19-2021 End: 05-29-2025 take 1 capsule by mouth twice daily Omeprazole 40 mg Capsule,Delayed Release(Dr/Ec) Discontinued 40 mg PO TWICE A DAY April 19, 2021 12:00am May 29, 2025 1:04pm reflux Start: 05-18-2018 take 2 capsules by m outh twice daily omeprazole (PRILOSEC) 20 mg capsule Take 40 mg by mouth twice daily. 05/18/2018 Active raNITIdine 300 mg oral tablet (1 source) Histamine-2 Receptor Antagonist Start: 07-03-2016 End: 08-17-2024 take 1 tablet by mouth once daily at bedtime Ranitidine HCl (ZANTAC) 300 mg tablet Take 1 tablet by mouth daily at bedtime. 30 tablet 6 07/03/2016 08/17/2024 Discontinued (Discontinued by Patient) Problems Active Problems Problem Classification Problem Date Documented Da te Episodic/Chronic Abdominal pain (20 sources) Epigastric pain; Translations: [Epigastric pain] Onset: 4 12-14-2019 Episodic Acute and unspecified renal failure (14 sources) Injury of kidney; Translations: [Acute kidney failure, unspecified] Onset: 4 04-19-2021 Episodic Anxiety disorders (12 sources) Anxiety; Translations: [Anxiety disorder, unspecified] Onset: 4 10-20-2022 Chronic Asthma (17 sources) Asthma; Translations: [Unspecified asthma, uncomplicated] Onset: 6 Resolved: 6 11-30-2019 Chronic Esophageal disorders (20 sources) Gastroesophageal reflux disease; Translations: [Gastro-esophageal reflux disease without esophagitis] Onset: 6 12-02-2019 Chronic Esophageal disorders (3 sources) Disease of esophagus, unspecified; Translations: [Disease of esophagus, unspecified] Onset: 2 Episodic External cause codes: Natural/environment (2 sources) Bitten by dog, subsequent encounter; Translations: [Bitten by dog, initial encounter] Onset: 8 Headache; including migraine (14 sources) Headache; Translations: [Headache] Onset: 4 12-02-2019 Episodic Malaise and fatigue (1 source) Other fatigue; Translations: [Other fatigue] Onset: 5 Episodic Mycoses (7 sources) Candidiasis of mouth; Translations: [Candidal stomatitis] Onset: 5 05-29-2025 Episodic Open wounds of extremities (20 sources) Open bite of right forearm, subsequent encounter; Translations: [Laceration without foreign body of right forearm, initial encounter] Onset: 8 01-03-2022 Episodic Other gastrointestinal disorders (14 sources) Bowel spasm; Translations: [Irritable bowel syndrome without diarrhea] Onset: 4 12-02-2019 Chronic Other gastrointestinal disorders (20 sources) Epiploic appendagitis; Translations: [Other specified diseases of intestine] Onset: 4 08-07-2021 Episodic Other gastrointestinal disorders (14 sources) History of Crohns disease; Translations: [Personal history of other diseases of the digestive system] Onset: 4 12-03-2019 Episodic Other gastrointestinal disorders (14 sources) Constipation; Translations: [Constipation, unspecified] Onset: 4 12-03-2019 Episodic Other injuries and conditions due to external causes (12 sources) Obstruction of esophagus; Translations: [Food in esophagus causing other injury, initial encounter] 03-08-2025 Episodic Other injuries and conditions due to external causes (1 source) Food in esophagus causing other injury, initial encounter; Translations: [Food in esophagus causing other injury, initial encounter] Onset: 5 Episodic Other lower respiratory disease (14 sources) Dyspnea; Translations: [Dyspnea, unspecified] Onset: 4 12-02-2019 Episodic Other nervous system disorders (1 source) Other lesions of median nerve, right upper limb; Translations: [Other lesions of median nerve, right upper limb] Onset: 8 Chronic Other nervous system disorders (1 source) Carpal tunnel syndrome, right upper limb; Translations: [Carpal tunnel syndrome, right upper limb] Onset: 8 Chronic Other nervous system disorders (1 source) Disorder of right median nerve; Translations: [Other lesions of median nerve, right upper limb] Onset: 8 07-08-2018 Chronic Other nervous system disorders (1 source) Carpal tunnel syndrome of right wrist; Translations: [Carpal tunnel syndrome, right upper limb] Onset: 8 08-29-2018 Chronic Other nervous system disorders (13 sources) Postoperative pain ; Translations: [Other acute postprocedural pain] Onset: 4 03-29-2022 Episodic Other nutritional; endocrine; and metabolic disorders (1 source) Obese class II; Translations: [Obesity, unspecified] Onset: 8 05-23-2018 Chronic Other screening for suspected conditions (not mental disorders or infectious disease) (1 source) Patient encounter status; Translations: [Encounter for screening for malignant neoplasm of colon] 08-17-2024 Episodic Other upper respiratory infections (1 source) Acute pharyngitis, unspecified; Translations: [Acute pharyngitis, unspecified] Onset: 5 Episodic Regional enteritis and ulcerative colitis (15 sources) Crohn's disease; Translations: [Crohn's disease, unspecified, without complications] Onset: 4 11-30-2019 Chronic Residual codes; unclassified (1 source) Other specified postprocedural states Onset: 8 Episodic Residual codes; unclassified (1 source) Procedure and treatment not carried out due to patient leaving prior to being seen by health care provider; Translations: [Procedure and treatment not carried out due to patient leaving prior to being seen by health care provider] Onset: 5 Episodic Residual codes; unclassified (1 source) Other specified postprocedural states; Translations: [Other specified postprocedural states] Onset: 8 Unclassified (2 sources) Unknown / UNK(Unknown) Onset: 8 Unclassified (1 source) Food entering into or through a natural orifice, initial encounter; Translations: [Food entering into or through a natural orifice, initial encounter] Onset: 5 Past or Other Problems Problem Classification Problem Date Documented Date Episodic/Chronic Genitourinary symptoms and ill-defined conditions (1 source) Unspecified symptoms and signs involving the genitourinary system; Translations: [Unspecified symptoms and signs involving the genitourinary system] Onset: 02-16-2025 Episodic Nonspecific chest pain (20 sources) Chest pain; Translations: [Chest pain, unspecified] Onset: 06-19-2024 04-19-2021 Episodic Open wounds of extremities (2 sources) Open bite of left forearm, initial encounter; Translations: [Dog bite of forearm] Onset: 05-21-2018 05-21-2018 Episodic Other connective tissue disease (1 source) Other synovitis and tenosynovitis, right hand; Translations: [Other synovitis and tenosynovitis, right hand] Onset: 07-08-2018 Episodic Other connective tissue disease (1 source) Pain in right arm; Translations: [Pain in right arm] Onset: 08-15-2018 Episodic Other connective tissue disease (1 source) Extensor tenosynovitis of wrist; Translations: [Other synovitis and tenosynovitis, right forearm] Onset: 07-08-2018 07-08-2018 Episodic Other lower respiratory disease (1 source) Dyspnea on exertion; Translations: [Other forms of dyspnea] Onset: 05-09-2016 05-09-2016 Episodic Results Test Name Value Interpretation Reference Range Facility Basic Metabolic Profile (BMP )on 06-08-2025 BUN/CRE 17.3 RATIO Normal 10-20 [facility] Comment on above: Performed By: #### L 101.9900, L500.2500, L501.6710, L100.0100 ####[facility] [address] [place], [address] Calcium [Mass/Vol] 9.2 mg/dL Normal 7.6-11.0 [facility] Comment on above: Performed By: #### L 101.9900, L500.2500, L501.6710, L100.0100 ####[facility] [address] [place], [address] Chloride [Moles/Vol] 107 mmol/L Normal 98-108 [facility] Comment on above: Performed By: #### L 101.9900, L500.2500, L501.6710, L100.0100 ####[facility] [address] [place], [address] CO2 [Moles/Vol] 21.9 mmol/L Normal 21.0-32.0 [facility] Comment on above: Performed By: #### L 101.9900, L500.2500, L501.6710, L100.0100 ####[facility] [address] [place], [address] Creatinine [Mass/Vol] 1.00 mg/dL Normal 0.70-1.20 [facility] Comment on above: Performed By: #### L 101.9900, L500.2500, L501.6710, L100.0100 ####[facility] [address] [place], [address] ECRCL 78.09 ml/min Normal 50-250 [facility] Comment on above: Performed By: #### L 101.9900, L500.2500, L501.6710, L100.0100 ####[facility] [address] [place], [address] GAP 11 Normal 5-15 [facility] Comment on above: Performed By: #### L 101.9900, L500.2500, L501.6710, L100.0100 ####[facility] [address] [place], [address] GFR/1.73 sq M.predicted among non-blacks MDRD (S/P/Bld) [Vol rate/Area] 78 mL/min/{1.73_m2} Normal >60 [facility] Comment on above: Result Comment: mL/m in/1.73m2 CKD-EPI Creatinine Equation (2020) Performed By: #### L 101.9900, L500.2500, L501.6710, L100.0100 ####[facility] [address] [place], [address] Glucose [Mass/Vol] 90 mg/dL Normal 70-99 [facility] Comment on above: Performed By: #### L 101.9900, L500.2500, L501.6710, L100.0100 ####[facility] [address] [place], [address] Potassium [Moles/Vol] 4.2 mmol/L Normal 3.3-5.1 [facility] Comment on above: Result Comment: Hemo lysis present, Results??could be affected. ?? Performed By: #### L 101.9900, L500.2500, L501.6710, L100.0100 ####[facility] [address] [place], [address] Sodium [Moles/Vol] 140 mmol/L Normal 133-145 [facility] Comment on above: Performed By: #### L 101.9900, L500.2500, L501.6710, L100.0100 ####[facility] [address] [place], [address] Urea nitrogen [Mass/Vol] 17 mg/dL Normal 4-19 [facility] Comment on above: Performed By: #### L 101.9900, L500.2500, L501.6710, L100.0100 ####[facility] [address] [place], [address] CBC W/Diff, Automatedon 07-1 -2024 Absolute Lymph 1.48 X10 3/uL Normal 0.83-4.51 [facility] Comment on above: Performed By: #### L 101.9900, L500.2500, L501.6710, L100.0100 ####[facility] [address] [place], [address] Absolute Neut 7.6 X10 3/uL Normal 2.0-7.7 [facility] Comment on above: Performed By: #### L 101.9900, L500.2500, L501.6710, L100.0100 ####[facility] [address] [place], [address] Basophils/100 WBC (Bld) 0.4 % Normal 0-1 [facility] Comment on above: Performed By: #### L 101.9900, L500.2500, L501.6710, L100.0100 ####[facility] [address] [place], [address] Eosinophils/100 WBC (Bld) 0.0 % Normal 0-5 [facility] Comment on above: Performed By: #### L 101.9900, L500.2500, L501.6710, L100.0100 ####[facility] [address] [place], [address] Erythrocyte distribution width (RBC) [Ratio] 13.3 % Normal 11.6-14.6 [facility] Comment on above: Performed By: #### L 101.9900, L500.2500, L501.6710, L100.0100 ####[facility] [address] [place], [address] Hematocrit (Bld) [Volume fraction] 38.2 % Low 40-54 [facility] Comment on above: Performed By: #### L 101.9900, L500.2500, L501.6710, L100.0100 ####[facility] [address] [place], [address] Hemoglobin (Bld) [Mass/Vol] 13.3 g/dL Normal 13.0-16.5 [facility] Comment on above: Performed By: #### L 101.9900, L500.2500, L501.6710, L100.0100 ####[facility] [address] [place], [address] IG% 0.800 Normal 0.0-0.9 [facility] Comment on above: Result Comment: IG% - Immature Granulocytes (promyelocytes, myelocytes and metamyelocytes) > 1% indicates that a LEFT SHIFT is Present. Performed By: #### L 101.9900, L500.2500, L501.6710, L100.0100 ####[facility] [address] [place], [address] Lymphocytes/100 WBC (Bld) 14.7 % Low 19-41 [facility] Comment on above: Performed By: #### L 101.9900, L500.2500, L501.6710, L100.0100 ####[facility] [address] [place], [address] MCH (RBC) [Entitic mass] 32.1 pg High 27.0-32.0 [facility] Comment on above: Performed By: #### L 101.9900, L500.2500, L501.6710, L100.0100 ####[facility] [address] [place], [address] MCHC (RBC) [Mass/Vol] 34.8 g/dL Normal 32-36 [facility] Comment on above: Performed By: #### L 101.9900, L500.2500, L501.6710, L100.0100 ####[facility] [address] [place], [address] MCV (RBC) [Entitic vol] 92.3 fL Normal 80-94 [facility] Comment on above: Performed By: #### L 101.9900, L500.2500, L501.6710, L100.0100 ####[facility] [address] [place], [address] Monocytes/100 WBC (Bld) 8.2 % Normal 0-10 [facility] Comment on above: Performed By: #### L 101.9900, L500.2500, L501.6710, L100.0100 ####[facility] [address] [place], [address] Neutrophils/100 WBC (Bld) 75.9 % High 47-70 [facility] Comment on above: Performed By: #### L 101.9900, L500.2500, L501.6710, L100.0100 ####[facility] [address] [place], [address] Nucleated RBC (Bld) [#/Vol] 0 10*3/uL Normal 0-5 [facility] Comment on above: Performed By: #### L 101.9900, L500.2500, L501.6710, L100.0100 ####[facility] [address] [place], [address] Platelet mean volume (Bld) [Entitic vol] 9.2 fL Normal 6.2-12.0 [facility] Comment on above: Performed By: #### L 101.9900, L500.2500, L501.6710, L100.0100 ####[facility] [address] [place], [address] Platelets (Bld) [#/Vol] 191 10*3/uL Normal 150-450 [facility] Comment on above: Performed By: #### L 101.9900, L500.2500, L501.6710, L100.0100 ####[facility] [address] [place], [address] RBC (Bld) [#/Vol] 4.14 10*6/uL Low 4.6-6.2 [facility] Comment on above: Performed By: #### L 101.9900, L500.2500, L501.6710, L100.0100 ####[facility] [address] [place], [address] RDW SD 45.4 fl High 35.1-43.9 [facility] Comment on above: Performed By: #### L 101.9900, L500.2500, L501.6710, L100.0100 ####[facility] [address] [place], [address] WBC (Bld) [#/Vol] 10.0 10*3/uL Normal 4.4-11.0 [facility] Comment on above: Performed By: #### L 101.9900, L500.2500, L501.6710, L100.0100 ####[facility] [address] [place], [address] CRPon 06-08-2025 C-REACTIVE PROT < 3.00 Normal 0.0-3.0 [facility] Comment on above: Performed By: #### L 101.9900, L500.2500, L501.6710, L100.0100 ####[facility] [address] [place], [address] Erythrocyte Sed Rateon 06-08 SED RATE 15 mm/hr Normal 0-20 [facility] Comment on above: Performed By: #### L 101.9900, L500.2500, L501.6710, L100.0100 ####[facility] [address] [place], [address] Foot min 3 Viewson Foot min 3 Views [facility] Imaging Services [address] [place] [address] Foot min 3 Views MR#: [id number] Acct: [id number] Name: MINDYLIBRADO D Rep #: [id number] : 1945 M 79 From: Gunnar Rooney MD PCP: Dr. Jaycob Yang MD Status: [facility] ER Study: Foot min 3 Views Date of Exam: 06/08/25 Exam# [id number] Ordering Dr: Barrington Sanchez DO PROCEDURE: FOOT MIN 3 VIEWS 06/08/2025 REASON FOR EXAM: INJURY/PAIN TECHNIQUE: FOOT MIN 3 VIEWS COMPARISON: None FINDINGS: No acute fracture or traumatic malalignment in either foot. Joint space narrowing and osteophyte formation at the 1st metatarsophalangeal joints and throughout the interphalangeal joints bilaterally. Bone mineral density is subjectively normal. Vascular calcifications in the right ankle soft tissues.. RAD/Foot min 3 Views IMPRESSION: No acute osseous abnormality of either foot. Moderate osteoarthritis bilaterally. Reading Location: [id number] CC: Dr. Jaycob Yang MD; Dr. Barrington Sanchez DO Heat Treat Inspector: Signed Normal [facility] Foot min 3 Views [facility] Imaging Services [address] [place], [place] [address] Foot min 3 Views MR#: [id number] Acct: [id number] Name: LIBRADO GUILLEN Rep #: [id number] : 1945 79 From: Gunnar Rooney MD PCP: Dr. Jaycob Yang MD Status: REG ER Study: Foot min 3 Views Date of Exam: 06/08/25 Exam# [id number] Ordering Dr: Barrington Sanchez DO PROCEDURE: FOOT MIN 3 VIEWS 06/08/2025 REASON FOR EXAM: INJURY/PAIN TECHNIQUE: FOOT MIN 3 VIEWS COMPARISON: None FINDINGS: No acute fracture or traumatic malalignment in either foot. Joint space narrowing and osteophyte formation at the 1st metatarsophalangeal joints and throughout the interphalangeal joints bilaterally. Bone mineral density is subjectively normal. Vascular calcifications in the right ankle soft tissues.. RAD/Foot min 3 Views IMPRESSION: No acute osseous abnormality of either foot. Moderate osteoarthritis bilaterally. Reading Location: [id number] CC: Dr. Jaycob Yang MD; Dr. Barrington Sanchez DO Heat Treat Inspector: Signed Normal [facility] Urinalysis, Completeon 06-08 BACTERIA 0 SEEN Normal None Seen [facility] Comment on above: Order Comment: CLEAN CATCH Performed By: #### L 400.0001 #### [facility] [address] [place], [address] EPI,SQUAMOUS 0 SEEN Normal 0-5 [facility] Comment on above: Order Comment: CLEAN CATCH Performed By: #### L 400.0001 #### [facility] [address] [place], [address] Mucus Ql (Urine sed) 0 SEEN Normal [facility] Comment on above: Order Comment: CLEAN CATCH Performed By: #### L 400.0001 #### [facility] [address] [place], [address] RBC 0 SEEN Normal 0-5 [facility] Comment on above: Order Comment: CLEAN CATCH Performed By: #### L 400.0001 #### [facility] [address] [place], [address] WBC 0 SEEN Normal 0-5 [facility] Comment on above: Order Comment: CLEAN CATCH Performed By: #### L 400.0001 #### [facility] [address] [place], [address] Vitamin D 1,25-Dihydroxyon 0 06-08-2025 VIT D 1,25 DIHY 58.6 pg/mL Normal 24.8-81.5 [facility] Comment on above: Order Comment: Order Date: 06/04/25Order Info: [id number] - [id number] Result Comment: Perf ormed at: [address] [id number] Health Type Technician: Jamari Mariee MD, Phone: [phone] Performed By: #### L 500.4051, L5484.4544, W3863.6957 ####[facility] [address] [place], [address] Vitamin D,25 Hydroxyon 06-08 Vitamin D 25-OH 23.5 ng/mL Low 30-100 [facility] Comment on above: Order Comment: CARRINGTON Watson ADD VITD TO BLOOD DRAWN 06/04/25 PER Order Date: 06/04/25Order Info: [id number] - CMPOrder Info: [id number] - FOLS Result Comment: Ankita min D Status Deficiency: <20 ng/mL (50nmol/L) Insufficiency: 20-30 ng/mL (50-75 nmol/L) Sufficiency: 30-100 ng/mL (75-250 nmol/L) Toxicity: >100 ng/mL (>250 nmol/L) Performed By: #### L 506.0200, L503.0106, L506.1001 ####[facility] [address] [place], [place], [address] Zinc, Plasma or Serumon 05-25 ZINC,PLASMA/SER 106 ug/dL Normal 44-115 [facility] Comment on above: Order Comment: Test( s) 451260-Axcy, Plasma or Serumwas developed and its performance characteristicsdetermined by [employer]. It has not been cleared or approvedby the Food and Drug Administration. Result Comment: Dete ction Limit = 5 Performed at: [address] [id number] Health Type Technician: Jamari Mariee MD, Phone: [phone] Performed By: #### L 500.4050, L3300.9900, L3300.0960 ####[facility] [address] [place], [place], [address] Comprehensive Metabolic Prof ilon 06-04-2025 Albumin [Mass/Vol] 4.1 g/dL Normal 3.4-4.8 [facility] Comment on above: Order Comment: Order Date: 06/04/25Order Info: [id number] - CMPOrder Info: [id number] - FOLS Performed By: #### L 500.4050, L3300.9900, L3300.0960 ####[facility] [address] [place], [place], [address] Albumin/Globulin [Mass ratio] 1.4 {ratio} Normal 0.9-2.4 [facility] Comment on above: Order Comment: Order Date: 06/04/25Order Info: [id number] - CMPOrder Info: [id number] - FOLS Performed By: #### L 500.4050, L3300.9900, L3300.0960 ####[facility] [address] [place], [address] ALK PHOS 79 U/L Normal 40-129 [facility] Comment on above: Order Comment: Order Date: 06/04/25Order Info: [id number] - CMPOrder Info: [id number] - FOLS Performed By: #### L 500.4050, L3300.9900, L3300.0960 ####[facility] [address] [place], [address] ALT [Catalytic activity/Vol] 53 U/L High <=46 [facility] Comment on above: Order Comment: Order Date: 06/04/25Order Info: 86-1 - CMPOrder Info: 2284-8 - FOLS Performed By: #### L 500.4050, L3300.9900, L3300.0960 ####[facility] [address] [place], [address] AST [Catalytic activity/Vol] 41 U/L High <=37 [facility] Comment on above: Order Comment: Order Date: 06/04/25Order Info: 07- - CMPOrder Info: 2284-8 - FOLS Performed By: #### L 500.4050, L3300.9900, L3300.0960 ####[facility] [address] [place], [address] Bilirubin [Mass/Vol] 0.31 mg/dL Normal 0.00-1.30 [facility] Comment on above: Order Comment: Order Date: 06/04/25Order Info: 0786-1 - CMPOrder Info: 2284-8 - FOLS Performed By: #### L 500.4050, L3300.9900, L3300.0960 ####[facility] [address] [place], [address] BUN/CRE 17.7 RATIO Normal 10-20 [facility] Comment on above: Order Comment: Order Date: 06/04/25Order Info: [id number] - CMPOrder Info: 2284-8 - FOLS Performed By: #### L 500.4050, L3300.9900, L3300.0960 ####[facility] [address] [place], [address] Calcium [Mass/Vol] 9.2 mg/dL Normal 7.6-11.0 [facility] Comment on above: Order Comment: Order Date: 06/04/25Order Info: 785- - CMPOrder Info: 2284-8 - FOLS Performed By: #### L 500.4050, L3300.9900, L3300.0960 ####[facility] [address] [place], [address] Chloride [Moles/Vol] 106 mmol/L Normal 98-108 [facility] Comment on above: Order Comment: Order Date: 06/04/25Order Info: 785-11 - CMPOrder Info: [id number] - FOLS Performed By: #### L 500.4050, L3300.9900, L3300.0960 ####[facility] [address], [address] CO2 [Moles/Vol] 21.4 mmol/L Normal 21.0-32.0 [facility] Comment on above: Order Comment: Order Date: 06/04/25Order Info: 07 - CMPOrder Info: 2284-8 - FOLS Performed By: #### L 500.4050, L3300.9900, L3300.0960 ####[facility] [address] [place], [address] Creatinine [Mass/Vol] 1.10 mg/dL Normal 0.70-1.20 [facility] Comment on above: Order Comment: Order Date: 06/04/25Order Info: 07- - CMPOrder Info: [id number] - FOLS Performed By: #### L 500.4050, L3300.9900, L3300.0960 ####[facility] [address] [place], [address] GAP 13 Normal 5-15 [facility] Comment on above: Order Comment: Order Date: 06/04/25Order Info: 0786-1 - CMPOrder Info: 228-8 - FOLS Performed By: #### L 500.4050, L3300.9900, L3300.0960 ####[facility] [address] [place], [address] GFR/1.73 sq M.predicted among non-blacks MDRD (S/P/Bld) [Vol rate/Area] 69 mL/min/{1.73_m2} Normal >60 [facility] Comment on above: Order Comment: Order Date: 06/04/25Order Info: 0786- - CMPOrder Info: 228-8 - FOLS Result Comment: mL/m in/1.73m2 CKD-EPI Creatinine Equation (2020) Performed By: #### L 500.4050, L3300.9900, L3300.0960 ####[facility] [address] [place], [address] Globulin (S) [Mass/Vol] 2.9 g/dL Normal 2.2-4.2 [facility] Comment on above: Order Comment: Order Date: 06/04/25Order Info: 0786- - CMPOrder Info: 2284-8 - FOLS Performed By: #### L 500.4050, L3300.9900, L3300.0960 ####[facility] [address] [place], [address] Glucose [Mass/Vol] 92 mg/dL Normal 70-99 [facility] Comment on above: Order Comment: Order Date: 06/04/25Order Info: 0786-1 - CMPOrder Info: 2284-8 - FOLS Performed By: #### L 500.4050, L3300.9900, L3300.0960 ####[facility] [address] [place], [address] Potassium [Moles/Vol] 3.8 mmol/L Normal 3.3-5.1 [facility] Comment on above: Order Comment: Order Date: 06/04/25Order Info: 0786-1 - CMPOrder Info: 2284-8 - FOLS Performed By: #### L 500.4050, L3300.9900, L3300.0960 ####[facility] [address] [place], [address] Sodium [Moles/Vol] 141 mmol/L Normal 133-145 [facility] Comment on above: Order Comment: Order Date: 06/04/25Order Info: 0786- - CMPOrder Info: 2284-8 - FOLS Performed By: #### L 500.4050, L3300.9900, L3300.0960 ####[facility] [address] [place], [address] T PROT 6.9 g/dL Normal 5.9-8.4 [facility] Comment on above: Order Comment: Order Date: 06/04/25Order Info: 0786- - CMPOrder Info: 2284-8 - FOLS Performed By: #### L 500.4050, L3300.9900, L3300.0960 ####[facility] [address] [place], [address] Urea nitrogen [Mass/Vol] 20 mg/dL High 4-19 [facility] Comment on above: Order Comment: Order Date: 06/04/25Order Info: 0786-1 - CMPOrder Info: 2284-8 - FOLS Performed By: #### L 500.4050, L3300.9900, L3300.0960 ####[facility] [address] [place], [address] Folates,Serum (Folic Acid)on 06-04-2025 FOLATES,SERUM 8.44 ng/mL Normal 4.60-34.80 [facility] Comment on above: Order Comment: N Performed By: #### L 506.0200, L503.0106, L506.1001 ####[facility] [address] [place], [address] Vitamin B12on 06-04-2025 Cobalamin (Vitamin B12) [Mass/Vol] 393 pg/mL Normal 180-914 [facility] Comment on above: Order Comment: Order Date: 06/04/25Order Info: 0786-1 - CMPOrder Info: 2284-8 - FOLS Performed By: #### L 506.0200, L503.0106, L506.1001 ####[facility] [address] [place], [address] Zinc, Plasma or Serumon ZINC,PLASMA/SER 71 ug/dL Normal 44-115 [facility] Comment on above: Order Comment: Test( s) 452202-Rmkz, Plasma or Serum was developed and its performance characteristics determined by [employer]. It has not been cleared or approved by the Food and Drug Administration. Result Comment: Dete ction Limit = 5 Performed at: [address] [id number] Health Type Technician: Jamari Mariee MD, Phone: [phone] Performed By: #### L 100.0100, L3300.9900, L501.9590 #### [facility] [address] [place], [place], [address] Absolute lymphocyte countOrd ered By: Lewis Turpin on 05-31-2025 Lymphocytes Auto (Unsp spec) [#/Vol] 2.10 10*3/uL 0.83-4.51 [facility] Absolute neutrophil countOrd ered By: Lewis Turpin on 05-31-2025 Neutrophils (Bld) [#/Vol] 4.5 10*3/uL 2.0-7.7 [facility] Anion gap in Serum or Plasma Ordered By: Lewis Turpin on 05-31-2025 Anion gap [Moles/Vol] 14 mmol/L 5-15 [facility] Automated lymphocyte count a s percentage of total leukocytesOrdered By: Lewis Turpin on 05-31-2025 Lymphocytes/100 WBC Auto (Unsp spec) 28.0 % 19-41 [facility] BUN/creatinine ratioOrdered By: Lewis Turpin on 05-31-2025 Urea nitrogen/Creatinine [Mass ratio] 13.6 mg/mg 10-20 [facility] Basophil percentageOrdered B y: Lewis Turpin on 05-31-2025 Basophils/100 WBC (Bld) 0.8 % 0-1 [facility] Bilirubin Test strip Ql (U)O rdered By: Lewis Turpin on 05-31-2025 Bilirubin Ql (U) Negative Negative [facility] Bilirubin, totalOrdered By: Lewis Turpin on 05-31-2025 Bilirubin [Mass/Vol] 0.63 mg/dL 0.00-1.30 [facility] CBC W/Diff, Automatedon Absolute Lymph 2.10 X10 3/uL Normal 0.83-4.51 [facility] Comment on above: Performed By: #### L 500.4050, L100.0100 #### [facility] [address] [place], [address] Absolute Neut 4.5 X10 3/uL Normal 2.0-7.7 [facility] Comment on above: Performed By: #### L 500.4050, L100.0100 #### [facility] [address] [place], [address] Basophils/100 WBC (Bld) 0.8 % Normal 0-1 [facility] Comment on above: Performed By: #### L 500.4050, L100.0100 #### [facility] [address] [place], [address] Eosinophils/100 WBC (Bld) 0.0 % Normal 0-5 [facility] Comment on above: Performed By: #### L 500.4050, L100.0100 #### [facility] [address] [place], [address] Erythrocyte distribution width (RBC) [Ratio] 13.6 % Normal 11.6-14.6 [facility] Comment on above: Performed By: #### L 500.4050, L100.0100 #### [facility] [address] [place], [address] Hematocrit (Bld) [Volume fraction] 42.0 % Normal 40-54 [facility] Comment on above: Performed By: #### L 500.4050, L100.0100 #### [facility] [address] [place], [address] Hemoglobin (Bld) [Mass/Vol] 14.1 g/dL Normal 13.0-16.5 [facility] Comment on above: Performed By: #### L 500.4050, L100.0100 #### [facility] [address] [place], [address] IG% 1.200 High 0.0-0.9 [facility] Comment on above: Result Comment: IG% - Immature Granulocytes (promyelocytes, myelocytes and metamyelocytes) > 1% indicates that a LEFT SHIFT is Present. Performed By: #### L 500.4050, L100.0100 #### [facility] [address] [place], [address] Lymphocytes/100 WBC (Bld) 28.0 % Normal 19-41 [facility] Comment on above: Performed By: #### L 500.4050, L100.0100 #### [facility] [address] [place], [address] MCH (RBC) [Entitic mass] 31.5 pg Normal 27.0-32.0 [facility] Comment on above: Performed By: #### L 500.4050, L100.0100 #### [facility] [address] [place], [address] MCHC (RBC) [Mass/Vol] 33.6 g/dL Normal 32-36 [facility] Comment on above: Performed By: #### L 500.4050, L100.0100 #### [facility] [address] [place], [address] MCV (RBC) [Entitic vol] 94.0 fL Normal 80-94 [facility] Comment on above: Performed By: #### L 500.4050, L100.0100 #### [facility] [address] [place], [address] Monocytes/100 WBC (Bld) 9.6 % Normal 0-10 [facility] Comment on above: Performed By: #### L 500.4050, L100.0100 #### [facility] [address] [place], [address] Neutrophils/100 WBC (Bld) 60.4 % Normal 47-70 [facility] Comment on above: Performed By: #### L 500.4050, L100.0100 #### [facility] [address] [place], [address] Nucleated RBC (Bld) [#/Vol] 0 10*3/uL Normal 0-5 [facility] Comment on above: Performed By: #### L 500.4050, L100.0100 #### [facility] [address] [place], [address] Platelet mean volume (Bld) [Entitic vol] 9.3 fL Normal 6.2-12.0 [facility] Comment on above: Performed By: #### L 500.4050, L100.0100 #### [facility] [address] [place], [address] Platelets (Bld) [#/Vol] 219 10*3/uL Normal 150-450 [facility] Comment on above: Performed By: #### L 500.4050, L100.0100 #### [facility] [address] [place], [address] RBC (Bld) [#/Vol] 4.47 10*6/uL Low 4.6-6.2 [facility] Comment on above: Performed By: #### L 500.4050, L100.0100 #### [facility] [address] [place], [address] RDW SD 46.4 fl High 35.1-43.9 [facility] Comment on above: Performed By: #### L 500.4050, L100.0100 #### [facility] [address] [place], [address] WBC (Bld) [#/Vol] 7.5 10*3/uL Normal 4.4-11.0 [facility] Comment on above: Performed By: #### L 500.4050, L100.0100 #### [facility] [address] [place], [address] Carbon dioxide, total [Moles /volume] in Central venous bloodOrdered By: Lewis Turpin on 05-31-2025 CO2 [Moles/Vol] 16.6 mmol/L Low 21.0-32.0 [facility] Chloride assayOrdered By: Kenneth Turpin on 05-31-2025 Chloride [Moles/Vol] 107 mmol/L 98-108 [facility] Comprehensive Metabolic Prof ilon 05-31-2025 Albumin [Mass/Vol] 4.0 g/dL Normal 3.4-4.8 [facility] Comment on above: Performed By: #### L 500.4050, L100.0100 #### [facility] [address] [place], [address] Albumin/Globulin [Mass ratio] 1.4 {ratio} Normal 0.9-2.4 [facility] Comment on above: Performed By: #### L 500.4050, L100.0100 #### [facility] [address] [place], [address] ALK PHOS 90 U/L Normal 40-129 [facility] Comment on above: Performed By: #### L 500.4050, L100.0100 #### [facility] [address] [place], [address] ALT [Catalytic activity/Vol] 41 U/L Normal <=46 [facility] Comment on above: Performed By: #### L 500.4050, L100.0100 #### [facility] [address] [place], [address] AST [Catalytic activity/Vol] 35 U/L Normal <=37 [facility] Comment on above: Result Comment: Hemo lysis present, Results??could be affected. ?? Performed By: #### L 500.4050, L100.0100 #### [facility] [address] [place], [address] Bilirubin [Mass/Vol] 0.63 mg/dL Normal 0.00-1.30 [facility] Comment on above: Performed By: #### L 500.4050, L100.0100 #### [facility] [address] [place], [address] BUN/CRE 13.6 RATIO Normal 10-20 [facility] Comment on above: Performed By: #### L 500.4050, L100.0100 #### [facility] [address] [place], [address] Calcium [Mass/Vol] 9.0 mg/dL Normal 7.6-11.0 [facility] Comment on above: Performed By: #### L 500.4050, L100.0100 #### [facility] [address] [place], [address] Chloride [Moles/Vol] 107 mmol/L Normal 98-108 [facility] Comment on above: Performed By: #### L 500.4050, L100.0100 #### [facility] [address] [place], [address] CO2 [Moles/Vol] 16.6 mmol/L Low 21.0-32.0 [facility] Comment on above: Performed By: #### L 500.4050, L100.0100 #### [facility] [address] [place], [address] Creatinine [Mass/Vol] 1.06 mg/dL Normal 0.70-1.20 [facility] Comment on above: Performed By: #### L 500.4050, L100.0100 #### [facility] [address] [place], [address] ECRCL 73.06 ml/min Normal 50-250 [facility] Comment on above: Performed By: #### L 500.4050, L100.0100 #### [facility] [address] [place], [address] GAP 14 Normal 5-15 [facility] Comment on above: Performed By: #### L 500.4050, L100.0100 #### [facility] [address] [place], [address] GFR/1.73 sq M.predicted among non-blacks MDRD (S/P/Bld) [Vol rate/Area] 72 mL/min/{1.73_m2} Normal >60 [facility] Comment on above: Result Comment: mL/m in/1.73m2 CKD-EPI Creatinine Equation (2020) Performed By: #### L 500.4050, L100.0100 #### [facility] [address] [place], [address] Globulin (S) [Mass/Vol] 2.9 g/dL Normal 2.2-4.2 [facility] Comment on above: Performed By: #### L 500.4050, L100.0100 #### [facility] [address] [place], [address] Glucose [Mass/Vol] 109 mg/dL High 70-99 [facility] Comment on above: Performed By: #### L 500.4050, L100.0100 #### [facility] [address] [place], [address] Potassium [Moles/Vol] 3.9 mmol/L Normal 3.3-5.1 [facility] Comment on above: Result Comment: Hemo lysis present, Results??could be affected. ?? Performed By: #### L 500.4050, L100.0100 #### [facility] [address] [place], [address] Sodium [Moles/Vol] 138 mmol/L Normal 133-145 [facility] Comment on above: Performed By: #### L 500.4050, L100.0100 #### [facility] [address] [place], [address] T PROT 7.0 g/dL Normal 5.9-8.4 [facility] Comment on above: Performed By: #### L 500.4050, L100.0100 #### [facility] [address] [place], [address] Urea nitrogen [Mass/Vol] 14 mg/dL Normal 4-19 [facility] Comment on above: Performed By: #### L 500.4050, L100.0100 #### [facility] [address] [place], [address] Emergency Department Summary on 05-31-2025 Emergency Department Summary [facility] Medical Records Department [address] [place] [address] Emergency Department Summary 05/31/25 MR#: [id number] Acct: [id number] Name: LIBRADO GUILLEN Rep #: [id number] : 1945 79 From: Lewis Turpin DO PCP: Dr. Jaycob Yang MD Status:REG ER Location: ED HPI History of Present Illness Chief Complaint: Other, Pain/Inj Narrative Narrative: Patient is a 79-year-old male with past medical history of Crohn's, IBS, asthma, GERD, Zenker's diverticulum who presents to the emergency department chief complaint of oral thrush with pain in his mouth. He states that this has been going on since last week and notes that he originally went to the ears nose and throat had a nurse practitioner and states he really did not know what he was looking at he states that he sent him home and he states that the neck several days his pain is severe to the [facility] the emergency department and he states that the doctor there said require you. This is an emergency room go see your doctor he states that he followed up with his PCP and he was given some medication with fungal properties as well as lidocaine as he states that his lips and his tongue on fire and he could not take the pain anymore therefore he came here for further evaluation management [facility] Medical History Zenkers diverticulum BPH (benign prostatic hyperplasia) History of DVT (deep vein thrombosis) GERD (gastroesophageal reflux disease) Former smoker Sleep apnea Chest pain Asthma IBS (irritable bowel syndrome) Crohn's disease Home Medications ???Medication ???Instructions ???Recorded ???Last Taken ???Type benralizumab 10 mg/0.5 mL 30 mg subcut Q8W 05/29/25 04/06/25 History subcutaneous syringe (Fasenra) nystatin 100,000 unit/mL oral 400,000 unit (4 mL) buccal .qid 7 05/29/25 Unknown Rx suspension days #250 mL polyethylene glycol 3350 17 4 g PO ONCE 05/29/25 05/30/25 Hist ory gram/dose oral powder (Miralax) vedolizumab 300 mg intravenous mg .Route 05/29/25 05/03/25 Histor y solution (Entyvio) albuterol sulfate 90 mcg/actuation 2 inh inhalation Q4H PRN shortne ss 05/31/25 05/17/25 History breath activated powder inhaler of breath bisacodyl 5 mg tablet 5 mg PO DAILY 05/31/25 05/30/25 Hi story clotrimazole 10 mg alexandra 10 mg mucous membrane 4X/DAY 05/31 Unknown History dicyclomine 20 mg tablet 20 mg PO 4X/DAY 05/31/25 05/31/25 History diphenhydramine HCl 12.5 mg/5 mL 6.25 mg PO BID 05/31/25 Unknown Hi story oral liquid esomeprazole magnesium 40 mg 40 mg PO DAILY 05/31/25 05/31/25 H istory capsule,delayed release famotidine 20 mg tablet (Acid 20 mg PO DAILY 05/31/25 05/30/25 H istory Controller) fluconazole 100 mg tablet 100 mg PO Q24H 05/31/25 Unknown Hi story fluconazole 200 mg tablet 200 mg PO DAILY 10 days #10 tabs 0 05/31/25 Unknown Rx ipratropium bromide 42 mcg (0.06 2 spray intranasal TID PRN allergy 05/31/25 05/30/25 History %) nasal spray symptoms lidocaine HCl 2 % mucosal solution 2.5 ml PO BID 05/31/25 Unknown H istory (Lidocaine Viscous) prednisone 1 mg tablet 4 mg PO DAILY 05/31/25 05/30/25 Hi story Allergy/AdvReac Type Severity Reaction Status Date / Time adalimumab (From Humira) Allergy itching Verified 05/31/25 07:28 Family History Mother CHF (congestive heart failure) Father Cancer unsure Surgical History History of colonoscopy ( 06/2021) Hx of cholecystectomy Social History Smoking Status: Former smoker ROS ROS ED ROS Narrative Constitutional: Denies fever, chills, headaches, lightness, dizziness Eyes, ears, nose, throat: Complains of thrush and pain in his mouth as noted above denies change in vision double vision blurry vision Cardiovascular: Denies chest pain Respiratory: Shortness of breath Abdomen: Denies nausea vomit diarrhea : Denies urinary symptoms Neurological: Denies numbness, wheeze, tingling Musculoskeletal: Denies back pain Skin: Denies any rashes or lesions EXAM Physical Exam Narrative Exam Narrative: General: Patient lying in bed did appear to be uncomfortable secondary to pain of his mouth Head: Atraumatic, normocephalic Eyes, ears, nose and throat: Patient has what appears to be thrush on his tongue and along the back posterior pharynx Neck: Soft, supple, trachea midline Cardiovascular: Regular rate and rhythm Respiratory: Clear to auscultation bilaterally Extremities: +5/5 strength of the bilateral upper and lower extremities Neurological: Patient follow commands knew that she was at [facility] years 2024 Skin: Wa (more content not included)... Normal [facility] Eosinophil percentageOrdered By: Lewis Turpin on 05-31-2025 Eosinophils/100 WBC (Bld) 0.0 % 0-5 [facility] Erythrocyte distribution wid th ratioOrdered By: Lewis Turpin on 05-31-2025 Erythrocyte distribution width (RBC) [Ratio] 13.6 % 11.6-14.6 [facility] Erythrocyte distribution wid th standard deviationOrdered By: Lewis Turpin on 05-31-2025 Erythrocyte distribution width (RBC) [Ratio] 46.4 fl High 35.1-43.9 [facility] Glomerular filtration rate ( GFR) estimation/1.73 sq m using serum, plasma, or whole bOrdered By: Lewis Turpin on 05-31-2025 GFR/1.73 sq M.predicted among non-blacks MDRD (S/P/Bld) [Vol rate/Area] 72 mL/min/{1.73_m2} >60 [facility] Comment on above: mL/min/1.73m2 CKD-EP I Creatinine Equation (2020) Hematocrit Auto (Bld) [Volum e fraction]Ordered By: Lewis Turpin on 05-31-2025 Hematocrit (Bld) [Volume fraction] 42.0 % 40-54 [facility] Hemoglobin measurementOrdere d By: Lewis Turpin on 05-31-2025 Hemoglobin (Bld) [Mass/Vol] 14.1 g/dL 13.0-16.5 [facility] Hyaline casts LM.LPF (Urine sed) [#/Area]Ordered By: Lewis Turpin on 05-31-2025 Hyaline casts (Urine sed) [#/Area] 0 /[LPF] 0-5 [facility] Immature granulocytes/100 WB C Auto (Bld)Ordered By: Lewis Turpin on 05-31-2025 Immature granulocytes/100 WBC (Bld) 1.200 % High 0.0-0.9 [facility] Comment on above: IG% - Immature Granu locytes (promyelocytes, myelocytes and metamyelocytes) > 1% indicates that a LEFT SHIFT is Present. Ketones Test strip Ql (U)Ord ered By: Lewis Turpin on 05-31-2025 Ketones Ql (U) Negative Negative [facility] - Chemistry and C hemistry - challengeOrdered By: Lewis Turpin on 05-31-2025 AST [Catalytic activity/Vol] 35 U/L <38 [facility] Comment on above: Hemolysis present, R esults could be affected. MCV (mean corpuscular volume ) determinationOrdered By: Lewis Turpin on 05-31-2025 MCV (RBC) [Entitic vol] 94.0 fL 80-94 [facility] Mean corpuscular hemoglobin (MCH) determinationOrdered By: Lewis Turpin on 05-31-2025 MCH (RBC) [Entitic mass] 31.5 pg 27.0-32.0 [facility] Mean corpuscular hemoglobin concentration (MCHC) determinationOrdered By: Lewis Turpin on 05-31-2025 MCHC (RBC) [Mass/Vol] 33.6 g/dL 32-36 [facility] Mean platelet volume determi nationOrdered By: Lewis Turpin on 05-31-2025 Platelet mean volume (Bld) [Entitic vol] 9.3 fL 6.2-12.0 [facility] Microscopic analysis of urin e for red blood cells (RBC)Ordered By: Lewis Turpin on 05-31-2025 Microscopic analysis of urine for red blood cells (RBC) 0 SEEN /hpf 0-5 [facility] Monocyte percentageOrdered B y: Lewis Turpin on 05-31-2025 Monocytes/100 WBC (Bld) 9.6 % 0-10 [facility] Mucus LM Ql (Urine sed)Order ed By: Lewis Turpin on 05-31-2025 Mucus Ql (Urine sed) 2+ /hpf [facility] Neutrophil percentageOrdered By: Lewis Turpin on 05-31-2025 Neutrophils/100 WBC (Bld) 60.4 % 47-70 [facility] Nitrite Test strip Ql (U)Ord ered By: Lewis Turpin on 05-31-2025 Nitrite Ql (U) Negative Negative [facility] Nucleated red blood cell per centageOrdered By: Lewis Turpin on 05-31-2025 Nucleated RBC/100 WBC (Bld) [Ratio] 0 % 0-5 [facility] Platelet countOrdered By: Kenneth Turpin on 05-31-2025 Platelets (Bld) [#/Vol] 219 10*3/uL 150-450 [facility] Potassium measurement (mass/ volume)Ordered By: Lewis Turpin on 05-31-2025 Potassium (Unsp spec) [Mass/Vol] 3.9 mmol/L 3.3-5.1 [facility] Comment on above: Hemolysis present, R esults could be affected. Protein Test strip Ql (U)Ord ered By: Lewis Turpin on 05-31-2025 Protein Ql (U) 30 mg/dl High Negative [facility] RBC Auto (Bld) [#/Vol]Ordere d By: Lewis Turpin on 05-31-2025 RBC (Bld) [#/Vol] 4.47 10*6/uL Low 4.6-6.2 [facility] Serum creatinine measurement (mass/volume)Ordered By: Lewis Turpin on 05-31-2025 Creatinine [Mass/Vol] 1.06 mg/dL 0.70-1.20 [facility] Serum globulin measurementOr dered By: Lewis Turpin on 05-31-2025 Globulin (S) [Mass/Vol] 2.9 g/dL 2.2-4.2 [facility] Serum glucose measurement (m ass/volume)Ordered By: Lewis Turpin on 05-31-2025 Glucose [Mass/Vol] 109 mg/dL High 70-99 [facility] Serum or plasma alanine alston otransferase (ALT) measurementOrdered By: Lewis Turpin on 05-31-2025 ALT [Catalytic activity/Vol] 41 U/L <47 [facility] Serum or plasma albumin rell urement (mass/volume)Ordered By: Lewis Turpin on 05-31-2025 Albumin [Mass/Vol] 4.0 g/dL 3.4-4.8 [facility] Serum or plasma albumin/glob ulin mass ratioOrdered By: Lewis Turpin on 05-31-2025 Albumin/Globulin [Mass ratio] 1.4 {ratio} 0.9-2.4 [facility] Serum or plasma alkaline carlin sphatase measurementOrdered By: Lewis Turpin on 05-31-2025 ALP [Catalytic activity/Vol] 90 U/L 40-129 [facility] Serum or plasma calcium rell urement (mass/volume)Ordered By: Lewis Turpin on 05-31-2025 Calcium [Mass/Vol] 9.0 mg/dL 7.6-11.0 [facility] Serum or plasma urea nitroge n measurement (mass/volume)Ordered By: Lewis Turpin on 05-31-2025 Urea nitrogen [Mass/Vol] 14 mg/dL 4-19 [facility] Sodium levelOrdered By: Remy Turpin on 05-31-2025 Sodium [Moles/Vol] 138 mmol/L 133-145 [facility] Squamous epithelial cells de tection in urine sediment by light microscopyOrdered By: Lewis Turpin on 05-31-2025 Epithelial cells.squamous LM Ql (Urine sed) 0 SEEN /hpf 0-5 [facility] Total proteinOrdered By: Richard Turpin on 05-31-2025 Protein [Mass/Vol] 7.0 g/dL 5.9-8.4 [facility] Urinalysis, Completeon 05-31 CAST,HYALINE 0-5 SEEN Normal 0-5 [facility] Comment on above: Order Comment: CLEAN CATCH Performed By: #### L 400.0001 #### [facility] [address] [place], [place], [id number] Mucus Ql (Urine sed) 2+ /hpf Normal [facility] Comment on above: Order Comment: CLEAN CATCH Performed By: #### L 400.0001 #### [facility] [address] [place], [place], [id number] BACTERIA RARE Normal None Seen [facility] Comment on above: Order Comment: CLEAN CATCH Performed By: #### L 400.0001 #### [facility] [address] [place], [address] WBC 0-5 SEEN Normal 0-5 [facility] Comment on above: Order Comment: CLEAN CATCH Performed By: #### L 400.0001 #### [facility] [facility] [address] [place], [address] EPI,SQUAMOUS 0 SEEN Normal 0-5 [facility] Comment on above: Order Comment: CLEAN CATCH Performed By: #### L 400.0001 #### [facility] [address] [place], [address] RBC 0 SEEN Normal 0-5 [facility] Comment on above: Order Comment: CLEAN CATCH Performed By: #### L 400.0001 #### [facility] [address] [place], [place], [address] Urine clarityOrdered By: Richard Turpin on 05-31-2025 Clarity (U) Clear Clear [facility] Urine color determinationOrd ered By: Lewis Turpin on 05-31-2025 Color (U) Yellow Yellow [facility] Urine glucose detectionOrder ed By: Lewis Turpin on 05-31-2025 Glucose Ql (U) Normal mg/dl Normal [facility] Urine leukocyte esterase det ection by dipstickOrdered By: Lewis Turpin on 05-31-2025 Leukocyte esterase Test strip Ql (U) Negative Negative [facility] Urine pHOrdered By: Lewis richey on 05-31-2025 pH (U) 6.0 [pH] 5.0 - 8.0 [facility] Urine sediment bacteria coun t by microscopy (number/high power field)Ordered By: Lewis Turpin on 05-31-2025 Bacteria LM.HPF (Urine sed) [#/Area] RARE /hpf None Seen [facility] Urine specific gravity measu rementOrdered By: Lewis Turpin on 05-31-2025 Specific gravity (U) [Rel density] 1.020 1.002-1.03 0 [facility] Urine urobilinogen measureme ntOrdered By: Lewis Turpin on 05-31-2025 Urobilinogen Ql (U) Normal mg/dl Normal [facility] White blood cell (WBC) count Ordered By: Lewis Turpin on 05-31-2025 WBC (Bld) [#/Vol] 7.5 10*3/uL 4.4-11.0 [facility] White blood cell countOrdere d By: Lewis Turpin on 05-31-2025 White blood cell count 0-5 SEEN /hpf 0-5 [facility] Urgent Care Visit Reporton 0 05-29-2025 Urgent Care Visit Report [facility] [address], [address] [place] [address] OFFICE VISIT Date of Service: 05/29/25 MR#: [id number] Acct: [id number] Name: LIBRADO GUILLEN Rep #: [id number] : 1945 Provider: KEILY Castillo Age/Sex: 79/M Location: [facility] Status: Signed Intake Vital Signs 03/08/25 16:10 05/29/25 13:13 Height 5 ft 10 in BP 122/78 H Position Sitting Respiration 17 Pulse 81 Temp 98.1 F Pulse Oximetry (%) 97 Oxygen Delivery Method room air Intake Visit Reasons: CONCERN FOR THRUSH Accompanied by: Self Allergies adalimumab (From Humira) Allergy (Verified 05/29/25 13:13) itching Medications ???Medication ???Instructions ???Recorded ???Confirmed ???Type fluticasone furoate 200 1 ea IH DAILY 04/04/19 12/26/21 Hi story mcg-vilanterol 25 mcg/dose inhalation powder (Breo Ellipta) benralizumab 10 mg/0.5 mL 30 mg subcut Q8W 05/29/25 History subcutaneous syringe (Fasenra) dicyclomine 10 mg capsule 10 mg PO BID 05/29/25 History mesalamine 400 mg capsule,delayed 2,400 mg PO DAILY Crohns 05/29/25 History release nystatin 100,000 unit/mL oral 400,000 unit (4 mL) buccal .qid 7 05/29/25 05/29/25 Rx suspension days #250 mL polyethylene glycol 3350 17 4 g PO ONCE 05/29/25 History gram/dose oral powder (Miralax) prednisone 20 mg tablet 40 mg PO DIRECTED 05/29/25 His tory vedolizumab 300 mg intravenous mg .Route 05/29/25 History solution (Entyvio) Have you fallen in the past year?: No Nurse's Note: Patient has concerns for thrush. Patient states he has had this since May 14 and was put on a dose of medication. Patient states it didn't help him. [facility] Medical History [place] diverticulum BPH (benign prostatic hyperplasia) History of DVT (deep vein thrombosis) GERD (gastroesophageal reflux disease) Former smoker Sleep apnea Chest pain Asthma IBS (irritable bowel syndrome) Crohn's disease Surgical History History of colonoscopy ( 06/2021) Hx of cholecystectomy Family History Mother CHF (congestive heart failure) Father Cancer unsure Social History Smoking Status: Former smoker HPI HPI Details: LIBRADO GUILLEN, is a 79 M who presents to the office today for thrush -states was given Diflucan for oral thrush and it did not get rid of it -on doxycycline currently- states for his bowels -on Breo inhaler- states is compliant with rinsing mouth after use -no fever, chills or difficulty swallowing -tongue is sore ROS Const Constitutional: Positive for other (ROS negative x6 except what was placed in HPI) Exam Const General: cooperative and no acute distress Orientation: alert and oriented x3 HENMT Other: -oral mucosa and lips dry -tongue with thick white coating- not easily scrapped off with gloved finger- appears to be confined to tongue Resp Effort Inspection: normal respiratory effort, able to speak in complete sentences and symmetric chest movement Auscultation: Bilateral: Clear to Auscultation, Left: Clear to Auscultation and Right: Clear to Auscultation Cardio Rate: regular rate Rhythm: regular rhythm Heart Sounds: S1 normal and S2 normal GI Auscultation: normal bowel sounds Palpation: soft and no hepatosplenomegaly Neuro General: patient alert, patient awake and patient oriented x3 Extrem General: normal to inspection and full ROM Psych Appearance: grossly normal Mental Status: mental status grossly normal Attitude: cooperative Thought Process: normal Thought Content: normal Judgment: judgment good Coding Level of Care Code Off vis,est,level 3 Diagnoses Oral thrush B37.0 Assessment and Plan Assessment and Plan (1) Oral thrush: Status: Acute Plan: -stay well hydrated- good oral care -nystatin as instructed -while on atb should take an otc probiotic or eat a yogurt daily -Please follow up with your Primary Care Physician for ongoing chronic problems. If symptoms change or worsen, please present to Emergency Room for further evaluation 1. See visit diagnoses, disposition, and orders. 2. Reviewed and updated medication list; Discussed probable diagnosis, test results if available in office today and management options with patient/guardian: agreed to the medical plan above 3. Education provided regarding visit today, see after visit summary. Instruction provided in the use of fluids, vaporizer, acetaminophen, and/or other OTC medication for symptom control. Explained use of antibiotics only for proven or strongly suspected bacterial infections. 4. Preventio (more content not included)... Normal [facility] Absolute lymphocyte countOrd ered By: Jaycob Yang on 05-27-2025 Lymphocytes Auto (Unsp spec) [#/Vol] 2.04 10*3/uL 0.83-4.51 [facility] Absolute neutrophil countOrd ered By: Jaycob Yang on 05-27-2025 Neutrophils (Bld) [#/Vol] 5.8 10*3/uL 2.0-7.7 [facility] Anion gap in Serum or Plasma Ordered By: Jaycob Yang on 05-27-2025 Anion gap [Moles/Vol] 13 mmol/L 5-15 [facility] Automated lymphocyte count a s percentage of total leukocytesOrdered By: Jaycob Yang on 05-27-2025 Lymphocytes/100 WBC Auto (Unsp spec) 22.8 % 19-41 [facility] BUN/creatinine ratioOrdered By: Jaycob Yang on 05-27-2025 Urea nitrogen/Creatinine [Mass ratio] 18.9 mg/mg 10-20 [facility] Basophil percentageOrdered B y: Jaycob Yang on 05-27-2025 Basophils/100 WBC (Bld) 0.9 % 0-1 [facility] Bilirubin, totalOrdered By: Jaycob Yang on 05-27-2025 Bilirubin [Mass/Vol] 0.42 mg/dL 0.00-1.30 [facility] CBC W/Diff, Automatedon Absolute Lymph 2.04 X10 3/uL Normal 0.83-4.51 [facility] Comment on above: Order Comment: Order Date: 05/27/25 Order Info: 0184-1 - CBCD Performed By: #### L 100.0100, L3300.9900, L501.9520 #### [facility] [address] [place], [address] Absolute Neut 5.8 X10 3/uL Normal 2.0-7.7 [facility] Comment on above: Order Comment: Order Date: 05/27/25 Order Info: 0184-1 - CBCD Performed By: #### L 100.0100, L3300.9900, L501.9520 #### [facility] [address] [place], [address] Basophils/100 WBC (Bld) 0.9 % Normal 0-1 [facility] Comment on above: Order Comment: Order Date: 05/27/25 Order Info: 0184-1 - CBCD Performed By: #### L 100.0100, L3300.9900, L501.9520 #### [facility] [address] [place], [address] Eosinophils/100 WBC (Bld) 0.0 % Normal 0-5 [facility] Comment on above: Order Comment: Order Date: 05/27/25 Order Info: 0184-1 - CBCD Performed By: #### L 100.0100, L3300.9900, L501.9520 #### [facility] [address] [place], [address] Erythrocyte distribution width (RBC) [Ratio] 13.7 % Normal 11.6-14.6 [facility] Comment on above: Order Comment: Order Date: 05/27/25 Order Info: 0184-1 - CBCD Performed By: #### L 100.0100, L3300.9900, L501.9520 #### [facility] [address] [place], [address] Hematocrit (Bld) [Volume fraction] 42.1 % Normal 40-54 [facility] Comment on above: Order Comment: Order Date: 05/27/25 Order Info: 0184-1 - CBCD Performed By: #### L 100.0100, L3300.9900, L501.9520 #### [facility] [address] [place], [address] Hemoglobin (Bld) [Mass/Vol] 14.1 g/dL Normal 13.0-16.5 [facility] Comment on above: Order Comment: Order Date: 05/27/25 Order Info: 0184- - CBCD Performed By: #### L 100.0100, L3300.9900, L501.9520 #### [facility] [address] [place], [address] IG% 1.500 High 0.0-0.9 [facility] Comment on above: Order Comment: Order Date: 05/27/25 Order Info: 0184-1 - CBCD Result Comment: IG% - Immature Granulocytes (promyelocytes, myelocytes and metamyelocytes) > 1% indicates that a LEFT SHIFT is Present. Performed By: #### L 100.0100, L3300.9900, L501.9520 #### [facility] [address] [place], [address] Lymphocytes/100 WBC (Bld) 22.8 % Normal 19-41 [facility] Comment on above: Order Comment: Order Date: 05/27/25 Order Info: 0184-1 - CBCD Performed By: #### L 100.0100, L3300.9900, [id number] #### [facility] [address] [place], [address] MCH (RBC) [Entitic mass] 31.8 pg Normal 27.0-32.0 [facility] Comment on above: Order Comment: Order Date: 05/27/25 Order Info: 0184-1 - CBCD Performed By: #### L 100.0100, L3300.9900, L501.9520 #### [facility] [address] [place], [address] MCHC (RBC) [Mass/Vol] 33.5 g/dL Normal 32-36 [facility] Comment on above: Order Comment: Order Date: 05/27/25 Order Info: 0184-1 - CBCD Performed By: #### L 100.0100, L3300.9900, L501.9520 #### [facility] [address] [place], [address] MCV (RBC) [Entitic vol] 95.0 fL High 80-94 [facility] Comment on above: Order Comment: Order Date: 05/27/25 Order Info: 0184-1 - CBCD Performed By: #### L 100.0100, L3300.9900, L501.9520 #### [facility] [address] [place], [address] Monocytes/100 WBC (Bld) 9.6 % Normal 0-10 [facility] Comment on above: Order Comment: Order Date: 05/27/25 Order Info: 0184-1 - CBCD Performed By: #### L 100.0100, L3300.9900, [id number] #### [facility] [address] [place], [address] Neutrophils/100 WBC (Bld) 65.2 % Normal 47-70 [facility] Comment on above: Order Comment: Order Date: 05/27/25 Order Info: 0184-1 - CBCD Performed By: #### L 100.0100, L3300.9900, L501.9520 #### [facility] [address] [place], [address] Nucleated RBC (Bld) [#/Vol] 0 10*3/uL Normal 0-5 [facility] Comment on above: Order Comment: Order Date: 05/27/25 Order Info: 0184-1 - CBCD Performed By: #### L 100.0100, L3300.9900, L501.9520 #### [facility] [address] [place], [address] Platelet mean volume (Bld) [Entitic vol] 9.8 fL Normal 6.2-12.0 [facility] Comment on above: Order Comment: Order Date: 05/27/25 Order Info: 0184-1 - CBCD Performed By: #### L 100.0100, L3300.9900, [id number] #### [facility] [address] [place], [address] Platelets (Bld) [#/Vol] 235 10*3/uL Normal 150-450 [facility] Comment on above: Order Comment: Order Date: 05/27/25 Order Info: 0184-1 - CBCD Performed By: #### L 100.0100, L3300.9900, [id number] #### [facility] [address] [place], [address] RBC (Bld) [#/Vol] 4.43 10*6/uL Low 4.6-6.2 [facility] Comment on above: Order Comment: Order Date: 05/27/25 Order Info: 0184-1 - CBCD Performed By: #### L 100.0100, L3300.9900, [id number] #### [facility] [address] [place], [address] RDW SD 47.3 fl High 35.1-43.9 [facility] Comment on above: Order Comment: Order Date: 05/27/25 Order Info: 0184-1 - CBCD Performed By: #### L 100.0100, L3300.9900, [id number] #### [facility] [address] [place], [address] WBC (Bld) [#/Vol] 9.0 10*3/uL Normal 4.4-11.0 [facility] Comment on above: Order Comment: Order Date: 05/27/25 Order Info: 0184-1 - CBCD Performed By: #### L 100.0100, L3300.9900, L501.9520 #### [facility] [address] [place], [address] Carbon dioxide, total [Moles /volume] in Central venous bloodOrdered By: Jaycob Yang on 05-27-2025 CO2 [Moles/Vol] 20.6 mmol/L Low 21.0-32.0 [facility] Chloride assayOrdered By: Jessica Yang on 05-27-2025 Chloride [Moles/Vol] 106 mmol/L 98-108 [facility] Comprehensive Metabolic Prof ilon 05-27-2025 Albumin [Mass/Vol] 4.2 g/dL Normal 3.4-4.8 [facility] Comment on above: Order Comment: Order Date: 05/27/25Order Info: 0786-1 - CMPOrder Info: 3016-3 - TSH Performed By: #### M 100.1000 #### [facility] [address] [place], [address] Albumin/Globulin [Mass ratio] 1.5 {ratio} Normal 0.9-2.4 [facility] Comment on above: Order Comment: Order Date: 05/27/25Order Info: 0786-1 - CMPOrder Info: 3016-3 - TSH Performed By: #### M 100.1000 #### [facility] [address] [place], [address] ALK PHOS 93 U/L Normal 40-129 [facility] Comment on above: Order Comment: Order Date: 05/27/25Order Info: 0786-1 - CMPOrder Info: 6-3 - TSH Performed By: #### M 100.1000 #### [facility] [address] [place], [address] ALT [Catalytic activity/Vol] 43 U/L Normal <=46 [facility] Comment on above: Order Comment: Order Date: 05/27/25Order Info: 86-1 - CMPOrder Info: 6-3 - TSH Performed By: #### M 100.1000 #### [facility] [address] [place], [address] AST [Catalytic activity/Vol] 28 U/L Normal <=37 [facility] Comment on above: Order Comment: Order Date: 05/27/25Order Info: 86-1 - CMPOrder Info: 6-3 - TSH Performed By: #### M 100.1000 #### [facility] [address] [place], [address] Bilirubin [Mass/Vol] 0.42 mg/dL Normal 0.00-1.30 [facility] Comment on above: Order Comment: Order Date: 05/27/25Order Info: 86-1 - CMPOrder Info: 6-3 - TSH Performed By: #### M 100.1000 #### [facility] [address] [place], [address] BUN/CRE 18.9 RATIO Normal 10-20 [facility] Comment on above: Order Comment: Order Date: 05/27/25Order Info: 0786-1 - CMPOrder Info: 3016-3 - TSH Performed By: #### M 100.1000 #### [facility] [address] [place], [address] Calcium [Mass/Vol] 9.3 mg/dL Normal 7.6-11.0 [facility] Comment on above: Order Comment: Order Date: 05/27/25Order Info: 0786-1 - CMPOrder Info: 6-3 - TSH Performed By: #### M 100.1000 #### [facility] [address] [place], [address] Chloride [Moles/Vol] 106 mmol/L Normal 98-108 [facility] Comment on above: Order Comment: Order Date: 05/27/25Order Info: 785-1 - CMPOrder Info: 3015-3 - TSH Performed By: #### M 100.1000 #### [facility] [address] [place], [address] CO2 [Moles/Vol] 20.6 mmol/L Low 21.0-32.0 [facility] Comment on above: Order Comment: Order Date: 05/27/25Order Info: 785-1 - CMPOrder Info: 3015-3 - TSH Performed By: #### M 100.1000 #### [facility] [address] [place], [address] Creatinine [Mass/Vol] 0.92 mg/dL Normal 0.70-1.20 [facility] Comment on above: Order Comment: Order Date: 05/27/25Order Info: 785- - CMPOrder Info: 3015-3 - TSH Performed By: #### M 100.1000 #### [facility] [address] [place], [address] GAP 13 Normal 5-15 [facility] Comment on above: Order Comment: Order Date: 05/27/25Order Info: 86-1 - CMPOrder Info: 6-3 - TSH Performed By: #### M 100.1000 #### [facility] [address] [place], [address] GFR/1.73 sq M.predicted among non-blacks MDRD (S/P/Bld) [Vol rate/Area] 86 mL/min/{1.73_m2} Normal >60 [facility] Comment on above: Order Comment: Order Date: 05/27/25Order Info: 86-1 - CMPOrder Info: 3016-3 - TSH Result Comment: mL/m in/1.73m2 CKD-EPI Creatinine Equation (2020) Performed By: #### M 100.1000 #### [facility] [address] [place], [address] Globulin (S) [Mass/Vol] 2.9 g/dL Normal 2.2-4.2 [facility] Comment on above: Order Comment: Order Date: 05/27/25Order Info: 86-1 - CMPOrder Info: 3 - TSH Performed By: #### M 100.1000 #### [facility] [address] [place], [address] Glucose [Mass/Vol] 105 mg/dL High 70-99 [facility] Comment on above: Order Comment: Order Date: 05/27/25Order Info: 785-1 - CMPOrder Info: 3016-01 - TSH Performed By: #### M 100.1000 #### [facility] [address] [place], [address] Potassium [Moles/Vol] 4.1 mmol/L Normal 3.3-5.1 [facility] Comment on above: Order Comment: Order Date: 05/27/25Order Info: 785-1 - CMPOrder Info: 3016-01 - TSH Performed By: #### M 100.1000 #### [facility] [address] [place], [address] Sodium [Moles/Vol] 140 mmol/L Normal 133-145 [facility] Comment on above: Order Comment: Order Date: 05/27/25Order Info: 07-1 - CMPOrder Info: 3 - TSH Performed By: #### M 100.1000 #### [facility] [address] [place], [address] T PROT 7.1 g/dL Normal 5.9-8.4 [facility] Comment on above: Order Comment: Order Date: 05/27/25Order Info: 0786-1 - CMPOrder Info: 3016- - TSH Performed By: #### M 100.1000 #### [facility] [address] [place], [place], [address] Urea nitrogen [Mass/Vol] 17 mg/dL Normal 4-19 [facility] Comment on above: Order Comment: Order Date: 05/27/25Order Info: 0786-1 - CMPOrder Info: [id number] - TSH Performed By: #### M 100.1000 #### [facility] [address] [place], [place], [address] Eosinophil percentageOrdered By: Jaycob Yang on 05-27-2025 Eosinophils/100 WBC (Bld) 0.0 % 0-5 [facility] Erythrocyte distribution wid th ratioOrdered By: Jaycob Yang on 05-27-2025 Erythrocyte distribution width (RBC) [Ratio] 13.7 % 11.6-14.6 [facility] Erythrocyte distribution wid th standard deviationOrdered By: Jaycob Yang on 05-27-2025 Erythrocyte distribution width (RBC) [Ratio] 47.3 fl High 35.1-43.9 [facility] Glomerular filtration rate ( GFR) estimation/1.73 sq m using serum, plasma, or whole bOrdered By: Jaycob Yang on 05-27-2025 GFR/1.73 sq M.predicted among non-blacks MDRD (S/P/Bld) [Vol rate/Area] 86 mL/min/{1.73_m2} >60 [facility] Comment on above: mL/min/1.73m2 CKD-EP I Creatinine Equation (2020) Hematocrit Auto (Bld) [Volum e fraction]Ordered By: Jaycob Yang on 05-27-2025 Hematocrit (Bld) [Volume fraction] 42.1 % 40-54 [facility] Hemoglobin measurementOrdere d By: Jaycob Yang on 05-27-2025 Hemoglobin (Bld) [Mass/Vol] 14.1 g/dL 13.0-16.5 [facility] Immature granulocytes/100 WB C Auto (Bld)Ordered By: Jaycob Yang on 05-27-2025 Immature granulocytes/100 WBC (Bld) 1.500 % High 0.0-0.9 [facility] Comment on above: IG% - Immature Granu locytes (promyelocytes, myelocytes and metamyelocytes) > 1% indicates that a LEFT SHIFT is Present. Laboratory - Chemistry and C hemistry - challengeOrdered By: Jaycob Yang on 05-27-2025 AST [Catalytic activity/Vol] 28 U/L <38 [facility] MCV (mean corpuscular volume ) determinationOrdered By: Jaycob Yang on 05-27-2025 MCV (RBC) [Entitic vol] 95.0 fL High 80-94 [facility] Mean corpuscular hemoglobin (MCH) determinationOrdered By: Jaycob Yang on 05-27-2025 MCH (RBC) [Entitic mass] 31.8 pg 27.0-32.0 [facility] Mean corpuscular hemoglobin concentration (MCHC) determinationOrdered By: Jaycob Yang on 05-27-2025 MCHC (RBC) [Mass/Vol] 33.5 g/dL 32-36 [facility] Mean platelet volume determi nationOrdered By: Jaycob Yang on 05-27-2025 Platelet mean volume (Bld) [Entitic vol] 9.8 fL 6.2-12.0 [facility] Monocyte percentageOrdered B y: Jaycob Yang on 05-27-2025 Monocytes/100 WBC (Bld) 9.6 % 0-10 [facility] Neutrophil percentageOrdered By: Jaycob Yang on 05-27-2025 Neutrophils/100 WBC (Bld) 65.2 % 47-70 [facility] Nucleated red blood cell per centageOrdered By: Jaycob Yang on 05-27-2025 Nucleated RBC/100 WBC (Bld) [Ratio] 0 % 0-5 [facility] Platelet countOrdered By: Jessica Yang on 05-27-2025 Platelets (Bld) [#/Vol] 235 10*3/uL 150-450 [facility] Potassium measurement (mass/ volume)Ordered By: Jaycob Yang on 05-27-2025 Potassium (Unsp spec) [Mass/Vol] 4.1 mmol/L 3.3-5.1 [facility] RBC Auto (Bld) [#/Vol]Ordere d By: Jaycob Yang on 05-27-2025 RBC (Bld) [#/Vol] 4.43 10*6/uL Low 4.6-6.2 [facility] Serum creatinine measurement (mass/volume)Ordered By: Jaycob Yang on 05-27-2025 Creatinine [Mass/Vol] 0.92 mg/dL 0.70-1.20 [facility] Serum globulin measurementOr dered By: Jaycob Yang on 05-27-2025 Globulin (S) [Mass/Vol] 2.9 g/dL 2.2-4.2 [facility] Serum glucose measurement (m ass/volume)Ordered By: Jaycob Yang on 05-27-2025 Glucose [Mass/Vol] 105 mg/dL High 70-99 [facility] Serum or plasma alanine alston otransferase (ALT) measurementOrdered By: Jaycob Yang on 05-27-2025 ALT [Catalytic activity/Vol] 43 U/L <47 [facility] Serum or plasma albumin rell urement (mass/volume)Ordered By: Jaycob Yang on 05-27-2025 Albumin [Mass/Vol] 4.2 g/dL 3.4-4.8 [facility] Serum or plasma albumin/glob ulin mass ratioOrdered By: Jaycob Yang on 05-27-2025 Albumin/Globulin [Mass ratio] 1.5 {ratio} 0.9-2.4 [facility] Serum or plasma alkaline carlin sphatase measurementOrdered By: Jaycob Yang on 05-27-2025 ALP [Catalytic activity/Vol] 93 U/L 40-129 [facility] Serum or plasma calcium rell urement (mass/volume)Ordered By: Jaycob Yang on 05-27-2025 Calcium [Mass/Vol] 9.3 mg/dL 7.6-11.0 [facility] Serum or plasma urea nitroge n measurement (mass/volume)Ordered By: Jaycob Yang on 05-27-2025 Urea nitrogen [Mass/Vol] 17 mg/dL 4-19 [facility] Serum or plasma zinc measure ment (mass/volume)Ordered By: Jaycob Yang on 05-27-2025 Zinc [Mass/Vol] 71 ug/dL 44-115 [facility] Comment on above: Detection Limit = 5P erformed at: - [facility] [address] [place], [place] [id number] Director: Jamari Mariee MD, Phone: [phone] Sodium levelOrdered By: Alena Hanke on 05-27-2025 Sodium [Moles/Vol] 140 mmol/L 133-145 [facility] TSH DL <= 0.005 mIU/L QnOrde red By: Jaycob Hanke on 05-27-2025 TSH Qn 2.650 uIU/mL 0.300-4.20 0 [facility] Thyroid Stim Hormone (TSH)on 05-27-2025 TSH 2.650 uIU/mL Normal 0.300-4.20 0 [facility] Comment on above: Order Comment: Order Date: 05/27/25 Order Info: [id number] - CMP Order Info: [id number] - TSH Performed By: #### L 100.0100, L3300.9900, L501.9520 #### [facility] Laboratory [address] [place], [place], [id number] Total proteinOrdered By: Cassia joey Hanke on 05-27-2025 Protein [Mass/Vol] 7.1 g/dL 5.9-8.4 [facility] White blood cell (WBC) count Ordered By: Jaycob Trey on 05-27-2025 WBC (Bld) [#/Vol] 9.0 10*3/uL 4.4-11.0 [facility] Culture, Throaton 05-21-2025 CUT Normal throat mariajose isolated. No beta-hemolytic streptococcus isolated. Normal [facility] Comment on above: Performed By: #### M 100.1000 #### [facility] [address] [place], [address] Throat specimen bacteria jose ntification by cultureOrdered By: Barrington Holguin on 05-19-2025 Bacteria identified Cx Nom (Throat) streptococcus isolated. [facility] EGD Reporton 03-08-2025 EGD Report [facility] Medical Records Department [address] [place] [address] EGD Report MR#: [id number] Acct: [id number] Name: LIBRADO GUILLEN Rep #: [id number] : 1945 79 From: Geovani Ramirez DO PCP: Dr. Jaycob Yang MD Status:[facility] Patient Name: Librado Guillen Procedure Date: 03/08/2025 5:48 PM Date of : 1945 Age: 79 Procedure: Upper GI endoscopy Indications: Foreign body in the esophagus Providers: Geovani Ramirez DO Medicines: Monitored Anesthesia Care Patient Profile: This is a 79 year old male. Refer to note in patient chart for documentation of history and physical. Patient has symptoms of dysphagia with solids. Complications: No immediate complications. Procedure: Pre-Anesthesia Assessment: - Prior to the procedure, a History and Physical was performed, and patient medications and allergies were reviewed. The patient is competent. The risks and benefits of the procedure and the sedation options and risks were discussed with the patient. All questions were answered and informed consent was obtained. Patient identification and proposed procedure were verified by the physician in the pre-procedure area. Mental Status Examination: alert and oriented. Airway Examination: normal oropharyngeal airway and neck mobility. Respiratory Examination: clear to auscultation. CV Examination: normal. Prophylactic Antibiotics: The patient does not require prophylactic antibiotics. Prior Anticoagulants: The patient has taken no anticoagulant or antiplatelet agents except for NSAID medication. ASA Grade Assessment: III - A patient with severe systemic disease. After reviewing the risks and benefits, the patient was deemed in satisfactory condition to undergo the procedure. The anesthesia plan was to use monitored anesthesia care (MAC). Immediately prior to administration of medications, the patient was re-assessed for adequacy to receive sedatives. The heart rate, respiratory rate, oxygen saturations, blood pressure, adequacy of pulmonary ventilation, and response to care were monitored throughout the procedure. The physical status of the patient was re-assessed after the procedure. After obtaining informed consent, the endoscope was passed under direct vision. Throughout the procedure, the patient's blood pressure, pulse, and oxygen saturations were monitored continuously. The gastroscope was introduced through the mouth, and advanced to the second part of duodenum. The upper GI endoscopy was accomplished without difficulty. The patient tolerated the procedure well. Scope In: 6:09:13 PM Scope Out: 6:20:47 PM Total Procedure Duration Time 0 hours 11 minutes 34 seconds Findings: Food was found at the cricopharyngeus. Removal was accomplished with a regular forceps and Nunez net. A non-bleeding Zenker's diverticulum with a large opening, impacted food and no stigmata of recent bleeding was found. The exam of the esophagus was otherwise normal. No gross lesions were noted in the stomach. No gross lesions were noted in the entire examined duodenum. Impression: - Food at the cricopharyngeus. Removal was successful. - Zenker's diverticulum. - No gross lesions in the stomach. - No gross lesions in the entire examined duodenum. Recommendation: - Discharge patient to home. - Resume previous diet. - Continue present medications. Procedure Code(s): --- Professional --- 78008, Esophagogastroduodenoscopy, flexible, transoral; with removal of foreign body(s) CPT copyright 2021 [employer]. All rights reserved. The codes documented in this report are preliminary and upon locker attendant review may be revised to meet current compliance requirements. Geovani Ramirez DO 03/08/2025 6:24:36 PM This report has been signed electronically. Number of Addenda: 0 Note Initiated On: 03/08/2025 5:48 PM 03/08/25 1824 Date Geovani Thomas Signature: Date (if indicated) CC: Dr. Jaycob Yang MD; Geovani Ramirez DO Date Dictated: 03/08/25 1748 Date Transcribed: Heat Treat Inspector: HALEY Signed Normal [facility] Emergency Department Summary on 03-08-2025 Emergency Department Summary [facility] Medical Records Department [address] [place] [address] Emergency Department Summary 03/08/25 MR#: [id number] Acct: [id number] Name: LIBRADO GUILLEN Rep #: [id number] : 1945 79 From: Barrington Sanchez DO PCP: Dr. Jaycob Yang MD Status:DEP [facility] Location: EN HPI History of Present Illness Chief Complaint: Foreign Body Informant: patient Onset/Context/Timing Onset: Today (Approximately 40 minutes prior to arrival) Context: Sudden Onset Timing: Continuous Quality: Feels like something is stuck Location: Throat Worsened by: Swallowing Relieved by: Nothing Narrative Narrative: Patient presents with esophageal food impaction that occurred today. Patient states he was eating lunch approximately 40 minutes prior to arrival. Patient states he was eating some chicken and it felt like it got stuck in his throat. Patient states it still feels like it is stuck. Patient states he is unable to swallow water. Patient states he feels the water going part way down and then he has to spit it back up. Patient denies any difficulty breathing. Patient denies any fevers or chills. Patient denies any chest pain. Patient states he has a history of Zenker's diverticulum and had surgery. Patient states that they opened it up but did not remove it. [facility] Medical History Zenkers diverticulum BPH (benign prostatic hyperplasia) History of DVT (deep vein thrombosis) GERD (gastroesophageal reflux disease) Former smoker Sleep apnea Chest pain Asthma IBS (irritable bowel syndrome) Crohn's disease Home Medications ???Medication ???Instructions ???Recorded ???Last Taken ???Type fluticasone furoate 200 1 ea IH DAILY 04/04/19 04/19/21 09 :00 History mcg-vilanterol 25 mcg/dose inhalation powder (Breo Ellipta) albuterol sulfate 2.5 mg/3 mL 1 puff inhalation Q4H PRN PRN Sob 11/30/19 Unknown History (0.083 %) solution for nebulization /Or Wheezing bisacodyl 5 mg tablet 10 mg PO DAILY constipation Unknown History mesalamine 400 mg capsule,delayed 2,400 mg PO DAILY Crohns 04/19/21 04/19/21 History release omeprazole 40 mg capsule,delayed 40 mg PO BID reflux 04/19/2104/19 16:00 History release polyethylene glycol 3350 17 gram 17 g PO DAILY constipation 1 04/19/21 History oral powder packet hydrocodone-acetaminophen 5-325mg 1 tab PO Q6H PRN pain 3 days #12 03/29/22 Unknown Rx 5mg-325mg tabs Allergy/AdvReac Type Severity Reaction Status Date / Time adalimumab (From Humira) Allergy itching Verified 03/08/25 14:11 Family History Mother CHF (congestive heart failure) Father Cancer unsure Surgical History History of colonoscopy ( 06/2021) Hx of cholecystectomy Social History Smoking Status: Former smoker ROS ROS ED Constitutional Constitutional ED: Denies chills or fever(s) Eyes Eyes: Denies blurry vision or change in vision ENT ENT ED: Denies rhinorrhea or sore throat Cardiovascular Cardiovascular: Denies chest pain or palpitations Respiratory/Chest Respiratory/Chest: Denies cough or dyspnea Gastrointestinal Gastrointestinal: Denies nausea or vomiting Genitourinary Genitourinary ED: Denies dysuria or hematuria Musculoskeletal Musculoskeletal: Denies back pain or neck pain Integumentary Denies abscess or rash Neurologic Neurologic: Denies headache(s) or weakness Allergic/Immunologic Allergic/Immunologic ED: Denies mouth swelling or urticaria EXAM Physical Exam Const Vital Signs: 03/08/25 14:08 03/08/25 14:19 Temperature 97.9 F Temperature Source Temporal Pulse Rate 96 Respiratory Rate 18 Respiratory Effort Normal Non-Labored Blood Pressure 167/78 H Blood Pressure Mean 107 Pulse Ox 96 Oxygen Delivery Method Room Air Positive well nourished and well developed Constitutional Narrative: BMI is 35.3 General Appearance ED: well developed and NAD HEENT Reports moist mucous membranes Neck supple and no JVD Resp normal respiratory effort and clear to auscultation bilaterally Cardio regular rate and regular rhythm GI non-tender and non-distended Palpation: soft Neuro oriented x3, CN's II-XII intact bilaterally and no sensory deficits noted Sensorium / Orientation: alert Motor Exam: strength 5/5 throughout Psych mental status grossly normal MDM MDM MDM Narrative Medical decision making narrative: Patient was given a dose of glucagon here. Treatment and Re-Evaluation :: Patient had no improvement of his symptoms after glucagon. Case was discussed with Dr. Ramirez. He (more content not included)... [facility] MR/[email or web address].ANEon 03-08-2025 MR/POSTOP.[facility] Medical Records Department [address] [place] [address] Anesthesia Postop Eval I 03/08/25 1829 MR#: [id number] Acct: [id number] Name: LIBRADO GUILLEN Rep #: [id number] : 1945 79 From: Barry Kline MD PCP: Dr. Jaycob Yang MD Status:REG [facility] Y Race: C Location: [place] [address] Anesthesia: Postop Eval I Current Vital Signs Temperature: 97.6 F Pulse Rate: 82 Blood Pressure: 131/67 Respiratory Rate: 16 Pulse Ox: 98 Oxygen Delivery Method: Room Air Assessment Airway patent: Yes Spontaneous unlabored respirations: Yes Mental status: Awake and Calm nausea: No Vomiting: No Anesthesia Complication: No Fluid Hydration Crystalloid volume administer (ml): 10 Total IV fluid infused: 10 Progress Note Anesthesia document: Postop Eval 1 completed: Yes 03/08/251829 Date [facility]line [facility] Signature: Date CC: Signed [facility] MR/[id number] 03-08-2025 MR/POSTOPAN2 [facility] Medical Records Department [address] [place] [address] Anesthesia Postop Eval II 03/08/251829 MR#: [id number] Acct: [id number] Name: LIBRADO GUILLEN Rep #: [id number] : 1945 79 From: Barry Kline MD PCP: Dr. Jaycob Yang MD Status:REG SDC Y Race: C Location: [facility] Anesthesia Postop Eval I Sum Postop Eval Completion status Anesthesia document: Postop Eval 1 completed: Yes Anesthesia Postop Eval I Summary Anesthesia Postop Eval I Summary: Anesthesia Postop Eval I: Assessment Summary Airway patent Yes 03/08/25 18:30 Spontaneous unlabored Yes 03/08/25 18:30 respirations Mental status Awake,Calm 03/08/25 18:30 nausea No 03/08/25 18:30 Vomiting No 03/08/25 18:30 Anesthesia Postop Eval I: Fluid Summary Crystalloid volume administer 10 03/08/25 18:30 (ml) Colloids volume administered ( ml) Blood Product volume administered (ml) Total IV fluid infused 10 03/08/25 18:30 Anesthesia Postop Eval I: Summary Notes Anesthesia Complication No 03/08/25 18:30 Anesthesia Complication Comment: Post-operative progress note Anesthesia: Postop Eval II Evaluation Mental status: Awake Pain Level: 0 nausea: No Vomiting: No 03/08/25 1830 Date Barry Kline MD Cosigner Signature: Date CC: Signed Normal [facility] .Auto Diffon 02-03-2025 Basophil, Absolute 0.0 10 3/mcL Normal 0.0-0.2 [facility] Comment on above: Performed By: #### G , YOEL, ADIFF, ANEU, TROPHS, LIP, CMP, CBC #### [facility] [address] [place], [place] [address] Basophils/100 WBC (Bld) 0.3 % Normal 0.0-2.5 [facility] Comment on above: Performed By: #### G , YOEL, ADIFF, ANEU, TROPHS, LIP, CMP, CBC #### [address] [address] Eosinophil, Absolute 0.0 10 3/mcL Normal 0.0-0.7 [facility] Comment on above: Performed By: #### G , YOEL, ADIFF, ANEU, TROPHS, LIP, CMP, CBC #### [address] [address] Eosinophils/100 WBC (Bld) 0.0 % Normal 0.0-7.0 [facility] Comment on above: Performed By: #### G , YOEL, ADIFF, ANEU, TROPHS, LIP, CMP, CBC #### [address] [address] Lymphocyte, Absolute 1.3 10 3/mcL Normal 0.9-4.3 [facility] Comment on above: Performed By: #### G , YOEL, ADIFF, ANEU, TROPHS, LIP, CMP, CBC #### [address] [address] Lymphocytes/100 WBC (Bld) 15.5 % Low 20.0-40.0 [facility] Comment on above: Performed By: #### G , YOEL, ADIFF, ANEU, TROPHS, LIP, CMP, CBC #### [address] [address] Monocyte, Absolute 0.6 10 3/mcL Normal 0.1-1.4 [facility] Comment on above: Performed By: #### G , YOEL, ADIFF, ANEU, TROPHS, LIP, CMP, CBC #### [address] [address] Monocytes/100 WBC (Bld) 7.2 % Normal 2.0-13.0 [facility] Comment on above: Performed By: #### G , YOEL, ADIFF, ANEU, TROPHS, LIP, CMP, CBC #### [address] [address] Neutrophils/100 WBC (Bld) 77.0 % High 50.0-75.0 [facility] Comment on above: Performed By: #### G YOEL YANES, ADANDREW, ANEU, TROPHS, LIP, CMP, CBC #### [address] [address] .GFRon 02-03-2025 Estimated Glomerular Filtration Rate 67 ml/min/1.73sqm Normal [facility] Comment on above: Result Comment: Stages of Chronic Kidney Disease (CKD) Stage Description eGFR(ml/min/1.73 sq.m.) CKD 1 Normal kidney function or >=90 normal kindney function with possible kidney damage (ex. Proteinuria) CKD 2 Kidney damage with mild loss 60-89 of kidney function CKD 3a Mild to moderate loss of kidney 45-59 function CKD 3b Moderate to severe loss of 30-44 of kindey function CKD 4 Severe loss of kidney function 15-29 CKD 5 Kidney failure <15 Note: (go live 2024) the eGFR calculation was updated to the 2020 CKD-EPI creatinine equation without a race factor to calculate the eGFR results. Performed By: #### G YOEL YANES, GIOVANA, ANEU, TROPHS, LIP, CMP, CBC #### [address] [address] .MDWon 02-03-2025 Monocyte Distribution Width 18.09 Normal 0.00-20.00 [facility] Comment on above: Result Comment: For ED adult patients suspected of sepsis, MDW<=20.0 does not rule out sepsis or risk of sepsis Performed By: #### G YOEL YANES, GIOVANA, ANEU, TROPHS, LIP, CMP, CBC #### [address] [address] .NEUABSon 02-03-2025 Neutrophil, Absolute 6.3 10 3/mcL Normal 2.3-8.1 [facility] Comment on above: Performed By: #### G YOEL YANES, ADIFF, ANEU, TROPHS, LIP, CMP, CBC #### [address] [address] CBCon 02-03-2025 Erythrocyte distribution width (RBC) [Ratio] 13.4 % Normal 11.5-15.5 [facility] Comment on above: Performed By: #### G YOEL YANES, GIOVANA, ANEU, TROPHS, LIP, CMP, CBC #### [place] [address] Hematocrit (Bld) [Volume fraction] 40.4 % Normal 40.0-52.0 [facility] Comment on above: Performed By: #### G YOEL YANES, GIOVANA, ANEU, TROPHS, LIP, CMP, CBC #### [place] [address] Hgb 14.2 G/dL Normal 13.0-17.5 [facility] Comment on above: Performed By: #### G YOEL YANES, GIOVANA, ANEU, TROPHS, LIP, CMP, CBC #### [place] [address] MCH (RBC) [Entitic mass] 32.1 pg Normal 27.0-33.0 [facility] Comment on above: Performed By: #### G YOEL YANES ADIFF, ANEU, TROPHS, LIP, CMP, CBC #### [place] [address] MCHC 35.1 G/dL Normal 32.0-36.0 [facility] Comment on above: Performed By: #### G YOEL YANES, GIOVANA, ANEU, TROPHS, LIP, CMP, CBC #### [place] [address] MCV (RBC) [Entitic vol] 91.3 fL Normal 81.0-100.0 [facility] Comment on above: Performed By: #### G YOEL YANES, GIOVANA, ANEU, TROPHS, LIP, CMP, CBC #### [place] [address] Platelet 190 10 3/mcL Normal 150-450 [facility] Comment on above: Performed By: #### G YOEL YANES, ADIFF, ANEU, TROPHS, LIP, CMP, CBC #### [address] [address] Platelet mean volume (Bld) [Entitic vol] 7.5 fL Normal 6.4-10.5 [facility] Comment on above: Performed By: #### G YOEL YANES, ADIFF, ANEU, TROPHS, LIP, CMP, CBC #### [address] [address] RBC 4.42 10 6/mcL Low 4.50-6.00 [facility] Comment on above: Performed By: #### G YOEL YANES, ABDIFATAHIFF, ANEU, TROPHS, LIP, CMP, CBC #### [address] [address] WBC 8.2 10 3/mcL Normal 4.5-10.8 [facility] Comment on above: Performed By: #### G YOEL YANES, ABDIFATAHIFF, ANEU, TROPHS, LIP, CMP, CBC #### [address] [address] CMPon 02-03-2025 Albumin Level 4.0 G/dL Normal 3.4-4.8 [facility] Comment on above: Performed By: #### G YOEL YANES, GIOVANA, ANEU, TROPHS, LIP, CMP, CBC #### [address] [address] Albumin/Globulin [Mass ratio] 1.2 {ratio} Normal 1.1-2.5 [facility] Comment on above: Performed By: #### G YOEL YANES, GIOVANA, ANEU, TROPHS, LIP, CMP, CBC #### [address] [address] ALP [Catalytic activity/Vol] 100 U/L Normal 40-135 [facility] Comment on above: Performed By: #### G YOEL YANES, ABDIFATAHIFF, ANEU, TROPHS, LIP, CMP, CBC #### [address] [address] ALT [Catalytic activity/Vol] 47 U/L Normal 16-63 [facility] Comment on above: Performed By: #### G YOEL YANES, GIOVANA, ANEU, TROPHS, LIP, CMP, CBC #### [address] [address] AST [Catalytic activity/Vol] 22 U/L Normal 10-40 [facility] Comment on above: Performed By: #### G YOEL YANES, GIOVANA, ANEU, TROPHS, LIP, CMP, CBC #### [address] [address] Bili Total 0.5 mg/dL Normal 0.2-1.0 [facility] Comment on above: Result Comment: Use of this assay is not recommended for patients undergoing treatment with eltrombopag due to the potential for falsely elevated results. Performed By: #### G YOEL YANES, GIOVANA, ANEU, TROPHS, LIP, CMP, CBC #### [place] [address] BUN/Creatinine Ratio 14 ratio Normal 7-27 [facility] Comment on above: Performed By: #### G YOEL YANES ADIFF, ANEU, TROPHS, LIP, CMP, CBC #### [address] [address] Calcium [Mass/Vol] 8.9 mg/dL Normal 8.4-10.[address] [facility] Comment on above: Performed By: #### G YOEL YANES ADIFF, ANEU, TROPHS, LIP, CMP, CBC #### [address] [address] Chloride [Moles/Vol] 107 mmol/L Normal 98-107 [facility] Comment on above: Performed By: #### G YOEL YANES ADIFF, ANEU, TROPHS, LIP, CMP, CBC #### [address] [address] CO2 [Moles/Vol] 27 mmol/L Normal 23-31 [facility] Comment on above: Performed By: #### G YOEL YANES, ADIFF, ANEU, TROPHS, LIP, CMP, CBC #### [address] [address] Creatinine [Mass/Vol] 1.13 mg/dL Normal 0.70-1.30 [facility] Comment on above: Result Comment: Test ing performed on Siemens Dimension EXL analyzer using a modified kinetic Henrry technique. Performed By: #### G YOEL YANES, ABDIFATAHIFF, ANEU, TROPHS, LIP, CMP, CBC #### [address] [address] Electrolyte Balance 6.0 mEq/L Normal 4.0-15.0 [facility] Comment on above: Performed By: #### G YOEL YANES, GIOVANA, ANEU, TROPHS, LIP, CMP, CBC #### [address] [address] Globulin 3.3 G/dL Normal 1.5-3.8 [facility] Comment on above: Performed By: #### G YOEL YANES, GIOVANA, ANEU, TROPHS, LIP, CMP, CBC #### [address] [address] Glucose [Mass/Vol] 106 mg/dL Normal 83-[address] [facility] Comment on above: Performed By: #### G YOEL YANES, GIOVANA, ANEU, TROPHS, LIP, CMP, CBC #### [address] [address] Potassium [Moles/Vol] 4.3 mmol/L Normal 3.5-5.1 [facility] Comment on above: Performed By: #### G YOEL YANES, GIOVANA, ANEU, TROPHS, LIP, CMP, CBC #### [address] [address] Sodium [Moles/Vol] 140 mmol/L Normal 136-[address] [facility] Comment on above: Performed By: #### G YOEL YANES, ABDIFATAHIFF, ANEU, TROPHS, LIP, CMP, CBC #### [address] [address] Total Protein 7.3 G/dL Normal 6.4-8.2 [facility] Comment on above: Performed By: #### G YOEL YANES, GIOVANA, ANEU, TROPHS, LIP, CMP, CBC #### [facility] [address] [place], [place] [address] Urea nitrogen [Mass/Vol] 16 mg/dL Normal 7-18 [facility] Comment on above: Performed By: #### G YOEL YANES, GIOVANA, ANEU, TROPHS, LIP, CMP, CBC #### [facility] [address] [place], [place] [address] CT ABD/PELVIS W/ IV CONTRAST ONLYon 02-03-2025 CT ABD/PELVIS W/ IV CONTRAST ONLY ORIGINAL EXAMINATION: CT OF THE ABDOMEN AND PELVIS WITH CONTRAST 02/03/2025 5:08 pm TECHNIQUE: CT of the abdomen and pelvis was performed with the administration of intravenous contrast. Multiplanar reformatted images are provided for review. Automated exposure control, iterative reconstruction, and/or weight based adjustment of the mA/kV was utilized to reduce the radiation dose to as low as reasonably achievable. COMPARISON: CT abdomen-pelvis 12/26/2019 HISTORY: ORDERING SYSTEM PROVIDED HISTORY: Reason for Exam: pain FINDINGS: Lower Chest: Visualized lower thorax demonstrates no consolidation or pleural effusion. Organs: The liver demonstrates no biliary duct dilatation or gross mass. There is diffuse hypoattenuation of the liver compatible with steatosis. Correlation with clinical findings may be useful. Prior cholecystectomy noted. The common bile duct is grossly normal in caliber. There are multiple clips at the liver hilum with partially obscuring metallic streak artifact. Pancreas demonstrates moderate diffuse volume loss and fatty replacement, without gross mass, ductal dilatation or inflammatory process. Spleen is normal in size. Adrenal glands are normal in size. The kidneys enhance symmetrically without evidence of hydronephrosis. There are no gross renal calculi. Ureters are normal in caliber bilaterally. GI/Bowel: Stomach is decompressed and suboptimally evaluated. The duodenum is grossly within normal limits. Small bowel and colon are normal in caliber. Appendix is normal in caliber without gross wall thickening or inflammatory change. There is no ascites. Pelvis: The urinary bladder demonstrates mild diffuse wall thickening, and small diverticuli again seen. Prostate gland appears normal size. Seminal vesicles are grossly normal in morphology. Peritoneum/Retroperitoneum: Aorta is normal in caliber without acute abnormality. There are moderate calcified plaques of the aorta. Bones/Soft Tissues: Osseous structures are intact with degenerative changes. There is no evidence of obstructive uropathy. Kidneys demonstrate no hydronephrosis or renal calculi. IMPRESSION: 1. No acute intra-abdominal or pelvic process. 2. Hepatic steatosis. Correlation with clinical findings may be useful. 3. Mild diffuse urinary bladder wall thickening and small diverticuli again seen. Correlation with clinical findings and follow-up urinalysis may be useful to exclude cystitis. Interpreted by: Igor Bennett Preliminary Report By: Igor Bennett Electronically signed By Igor Bennett Dictated Date: 02/03/2025 5:11:36 PM Prelim Date: 02/03/2025 5:28:58 PM Sign Date: 02/03/2025 5:28:58 PM Ordering Provider: SUNNY CRUZ Normal [facility] LIPon 02-03-2025 Lipase Level 16 U/L Normal 16-77 [facility] Comment on above: Performed By: #### G YOEL YANES, GIOVANA, ANEU, TROPHS, LIP, CMP, CBC #### [id number] [place], [place] [address] [facility] 02-03-2025 High Sensitivity Troponin I 10 ng/L Normal 0-76 [facility] Comment on above: Result Comment: High Sensitive Troponin I Reference Ranges: Female: 0-51 ng/L Male: 0-76 ng/L Testing performed on Cognea using a homogeneous sandwich chemiluminescent immunoassay based on FLIP4NEW technology. Performed By: #### G YOEL YANES, GIOVANA, UMBERTO, TROPHS, LIP, CMP, CBC #### [id number] [place], [place] [address] [facility] 02-03-2025 Color (U) Yellow Normal [facility] Comment on above: Performed By: #### U A ####[facility] [place], [place] [address] Glucose (U) [Mass/Vol] Negative Normal Negative [facility] Comment on above: Performed By: #### U A ####[address] [place] [address] Ketones Ql (U) Negative Normal Negative [facility] Comment on above: Performed By: #### U A ####[address] [place] [address] UA Appear Clear Normal Clear [facility] Comment on above: Performed By: #### U A ####[address] [place] [address] UA Blood Negative Normal Negative [facility] Comment on above: Performed By: #### U A ####[address] [place] [address] UA Leuk Est Negative Normal Negative [facility] Comment on above: Performed By: #### U A ####[address] [place] [address] UA Nitrite Negative Normal Negative [facility] Comment on above: Performed By: #### U A ####[address] [place] [address] UA pH 7.5 Normal 5.0 - 8.0 [facility] Comment on above: Performed By: #### U A ####[address] [address] UA Protein Negative Normal Negative [facility] Comment on above: Performed By: #### U A ####[address] [place] [address] UA Spec Grav 1.015 Normal 1.015-1.02 5 [facility] Comment on above: Performed By: #### U A ####[address] [place] [address] UA Specimen Type Clean Catch Normal [facility] Comment on above: Performed By: #### U A ####[address] [place] [address] UA Urobilinogen 0.2 E.U./dL Normal 0.2-1.0 [facility] Comment on above: Performed By: #### U A ####[address] [place] [address] Urobilinogen (U) [Mass/Vol] Negative Normal Negative [facility] Comment on above: Performed By: #### U A ####[facility] [place], [place] [address] XR CHEST 1 VIEWon 02-03-2025 XR CHEST 1 VIEW ORIGINAL EXAMINATION: ONE XRAY VIEW OF THE CHEST 02/03/2025 4:47 pm COMPARISON: Radiograph of the chest December 26, 2019 HISTORY: ORDERING SYSTEM PROVIDED HISTORY: Reason for Exam: chest pain FINDINGS: Cardiomediastinal silhouette is unchanged in size. Low lung volumes. Costophrenic angles are unchanged. No radiographic pneumothorax. No focal consolidation. Similar appearing vascular and interstitial markings. IMPRESSION: Low lung volumes. Interpreted by: Maximiliano Lopez Preliminary Report By: Maximiliano Lopez Electronically signed By Maximiliano Lopez Dictated Date: 02/03/2025 4:54:43 PM Prelim Date: 02/03/2025 4:55:32 PM Sign Date: 02/03/2025 4:55:32 PM Ordering Provider: SUNNY CRUZ Normal [facility] SURGICAL PATHOLOGYon 025 CASE REPORT Normal [facility] Comment on above: Order Comment: Speci men Type: TISSUE SPECIMEN Ordering Facility: [facility] Address: ATTN: [place] [address] Result Comment: Surg ica Pathology Report Case: [id number] Authorizing Provider: Gloria Moses MD Collected: 12/10/2024 10:46 AM Ordering Location: [facility] Received: 12/11/2024 10:32 AM [facility] Pathologist: Lorenzo Marinelli MD Specimen: Esophagogastric Junction, Biopsy, Gastroesophageal SP-CL [id number] Performed By: #### S #### [facility] [place] [facility] CLIA [id number] [address] [place] [address] [place] CLINICAL HISTORY 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 due for surveillance. Hx of Zenker's repair. Persistent GERD and dypepsia despite max acid supression. R/O Patel's. Normal [facility] Comment on above: Order Comment: Speci men Type: TISSUE SPECIMEN Ordering Facility: [facility] Address: ATTN: LABORATORY, [place] [address] Performed By: #### S #### [facility] [place] [facility] CLIA [id number] [address] [place] [address] [place] FINAL DIAGNOSIS Normal [facility] Comment on above: Order Comment: Speci men Type: TISSUE SPECIMEN Ordering Facility: [facility] Address: ATTN: LABORATORY, [place] [address] Result Comment: A. E sophagogastric junction, biopsy: -Squamo-gastric junctional mucosa with reactive epithelial changes -Negative for intestinal metaplasia Performed By: #### S #### [facility] [place] [facility] CLIA [id number] [address] [place] [address] [place] FINAL PERFORMING LAB Normal [facility] Comment on above: Order Comment: Speci men Type: TISSUE SPECIMEN Ordering Facility: [facility] Address: ATTN: LABORATORY, [place] [address] Result Comment: Diag nostic interpretation performed at: [facility], [address] [place] [address] CLIA# [id number] Keypunch Operator: Anton Mclean MD Performed By: #### S #### [facility] [place] [facility] CLIA [id number] [address] [place] [address] [place] GROSS DESCRIPTION Normal [facility] Comment on above: Order Comment: Speci men Type: TISSUE SPECIMEN Ordering Facility: [facility] Address: ATTN: LABORATORY, [place] [address] Result Comment: A. E sophagogastric Junction, Biopsy Received in formalin are multiple pieces of wray, soft tissue aggregating to 1.6 x 0.6 x 0.1 cm. Totally submitted in two cassettes. Gross examination performed at [facility], [address] [place] [address] December 11, 2024 10:57 AM Performed By: #### S #### [facility] [place] [facility] CLIA [id number] [address] [address] [place] Urine Cultureon 11-04-2024 [facility] Order Date: 11/03/24 Order Info: 630-4 - CUUR Culture exhibits no growth. Normal [facility] Comment on above: Performed By: #### M 100.1000 #### [facility] [place], [address] Urine cultureOrdered By: Valerie Conklin on 11-03-2024 Bacteria identified Cx Nom (U) Culture exhibits no growth. [facility] CNOVon 08-17-2024 CNOV Office Visit (GENSWS ) LIBRADO GUILLEN ([id number]) 1945 Date Time Provider Department 08/17/24 11:00 AM MALOU VILLAGOMEZ During your visit today, we recorded the following information about you: Temperature Pulse Blood pressure Weight 97.1 degrees 84/minute 122/80 117.6 kg Height 1.778 m Malou Villagomez APRN.CNP 08/17/2024 11:42 AM Signed HISTORY AND PHYSICAL Librado Guillen : 1945 REFERRING PHYSICIAN[facility] CHIEF COMPLAINT: Patient presents with: Consult: EGD and colonoscopy consultation. HPI: Librado is a 78 year old male referred for endoscopy. Librado notes continued reflux symptoms despite PPI, hx of barretts with HGD s/p RFA. Librado denies abdominal pain. Librado notes diarrhea. D/t crohns but well controlled with mesalamine Librado denies constipation. Librado denies a change in bowel habits. Librado denies melena. Librado denies bright red blood per rectum. Librado denies hemorrhoids. Hx of Crohn's Dx- PO mesalamine BID Jonas was supposed to complete colonoscopy at the end of June, however his ride fell through and it was never completed. Librado notes heartburn. 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 Jonas refers he had this procedure done 3 times and the final time they had to enter through the neck. He still refers difficulty swallowing +Having retrosternal burning pain Librado denies a history of ulcers/ peptic ulcer disease. Jonas presented to [facility] ED for CP. Cardiac work up was negative. Had stress test with completed 06/30/24 no evidence of ischemia. EF is 69% Jonas follows with Dr. Arriola for asthma. Denies recent exacerbations, rescue inhaler, wheezing, SOB, recent hospitalizations Denies family history of colon issues. Librado has undergone prior endoscopy. EGD 09/2022 @ [facility] COL[facility] 07/2021 @ [facility] - Ascending colon: HP - Descending colon: TA - Descending biopsy: nonspecific focal colitis Current Outpatient Medications Medication Sig benralizumab (FASENRA) 30 mg/mL injection Inject 30 mg subcutaneously every 8 weeks. dicyclomine (BENTYL) 20 mg tablet Take 20 mg by mouth four times a day as needed (abdominal pain). escitalopram oxalate (LEXAPRO) 5 mg tablet Take 5 mg by mouth once daily. esomeprazole (NEXIUM) 40 mg capsule Take 40 mg by mouth two times a day before meals. Mesalamine (LIALDA) 1.2 gram EC tablet Take 2,400 mg by mouth two times a day with meals. predniSONE (DELTASONE) 1 mg tablet Take 4 mg by mouth once daily. fluticasone-vilanterol (BREO ELLIPTA) 200-25 mcg/dose inhaler Inhale 1 Inhalation as instructed once daily. albuterol HFA (PROVENTIL HFA, VENTOLIN HFA) 90 mcg/actuation inhaler Inhale 2 Puffs as instructed every 6 hours as needed for wheezing/shortness of breath. Bisacodyl (DULCOLAX) 5 mg tab Take 10 mg by mouth as needed for constipation. budesonide, enteric coated (ENTOCORT EC) 3 mg 24 hr capsule Take 3 mg by mouth once daily. 3 capsules by mouth every day for 30 days then, 2 capsules by mouth every day for 30 days then, 1 capsule by mouth every day for 30 days for Crohn's disease. polyethylene glycol 3350 17 gram packet Take 17 g by mouth two times a day. Dissolve dose in 4 - 8 ounces of liquid and take as directed. aluminum AND magnesium hydroxide-simethicone (MAALOX PLUS EXTRA STRENGTH) 400-400-40 mg/5 mL suspension Take 10 mL by mouth every 6 hours as needed (heartburn/indigestion). acetaminophen with codeine (ACETAMINOPHEN-CODEINE) 120 mg-12 mg /5 mL (5 mL) Take 5 mL by mouth every 8 hours as needed. omeprazole (PRILOSEC) 20 mg capsule Take 40 mg by mouth twice daily. albuterol (PROVENTIL) 2.5 mg /3 mL (0.083 %) nebulizer solution Use 3 mL via nebulizer every 4 hours. predniSONE (DELTASONE) 10 mg tablet Take 1 tablet by mouth once daily. (Patient taking differently: Take 5 mg by mouth once daily.) budesonide (PULMICORT) 0.5 mg/2 mL nebulizer solution Use 2 mL via nebulizer twice daily. ALBUTEROL INHALATION Inhale 2 Puffs as instructed as needed. ZYRTEC 10MG TABLET NEEDED No current facility-administered medications for this visit. 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 Normal [facility] Stress Reporton 07-02-2024 Stress Report [facility] [address] [place] [address] MR#: [id number] Acct: [id number] Name: LIBRADO GUILLEN Rep #: [id number] : 1945 78 From: Caron Resendiz MD Primary Care: Dr. Jaycob Yang MD Status: REG CLI Referring Dr: Elia Downs MD Sex: Naomi Slade Stress Test Report Date: 06/30/2024 Procedure: Pharmacologic stress nuclear imaging study Indications: Chest pain Consent: Per the patient Procedure: The patient underwent pharmacologic (Regadenoson) evaluation with a peak heart rate of 89 beats per minute (61%predicted maximal heart rate) and a peak blood pressure of 126/68 mmHg. The baseline ECG demonstrated normal sinus rhythm. EKG during lexiscan infusion revealed no significant ischemic changes. EKG post infusion revealed no significant ischemic changes [There were no cardiac dysrhythmias pretest, during pharmacologic infusion, or recovery]. [There was no complaint of chest discomfort during pharmacologic infusion or recovery]. The examination was discontinued secondary to completion of protocol. Impression: 1. Lexiscan stress test test is negative for Lexiscan infusion induced EKG changes of ischemia. 2. Lexiscan stress test test is negative for Lexiscan infusion induced chest pain. 3. Results of the nuclear portion of the test is as below Myocardial perfusion imaging study: Technique: The patient was injected with 14.2 millicuries of technetium 99m Cardiolite and subsequently rest SPECT Cardiolite nuclear imaging was obtained in the horizontal long, vertical long, and short axis views. The patient underwent pharmacologic [Regadenoson 0.4mg] evaluation. Please see above for details. The patient was injected with 44.6 millicuries of technetium 99m Cardiolite and subsequently stress SPECT Cardiolite nuclear imaging was obtained in the horizontal long, vertical long, and short axis views. A gated Cardiolite study at peak stress was obtained. Interpretation: Rest and stress SPECT Cardiolite nuclear imaging status post realignment, normalization, and attenuation correction demonstrate no evidence of significant ischemia or infarction. Gated images reveal no significant regional wall motion abnormalities. The reported LVEF is 69%. Impression: 1. There is no evidence of significant ischemia or infarction. 2. Estimated ejection fraction is 69%. This note was generated with Kranem software. It may contain incorrect words, spelling, and punctuation that were not noted in checking the note before signing. 07/02/24 1338 Date Nagapradee Nagajothi MD CC: Dr. Jaycob Yang MD; Elia Downs MD Date Dictated: 07/02/241326 Date Transcribed: 07/02/241326 Heat Treat Inspector: JIM Signed Normal [facility] Absolute lymphocyte countOrd ered By: ED PROVIDER on 12-09-2023 Lymphocytes Auto (Unsp spec) [#/Vol] 1.54 10*3/uL 0.83-4.51 [facility] Basophil percentageOrdered B y: ED PROVIDER on 12-09-2023 Basophils/100 WBC (Bld) 0.4 % 0-1 [facility] Chloride [Moles/Vol] 109 mmol/L 98-107 [facility] Eosinophils/100 WBC (Bld) 0.0 % 0-5 [facility] Glucose [Mass/Vol] 102 mg/dL 74-106 [facility] Comment on above: Fasting Glucose resu lt from 100 to 125 mg/dL suggests IMPAIRED HOMEOSTASIS per A.D.A. criteria. Neutrophils (Bld) [#/Vol] 7.0 10*3/uL 2.0-7.7 [facility] Neutrophils/100 WBC (Bld) 75.1 % 47-70 [facility] Potassium [Moles/Vol] 4.1 mmol/L 3.5-5.1 [facility] [place] [facility] Sodium [Moles/Vol] 142 mmol/L 136-145 [facility] WBC (Bld) [#/Vol] 9.4 10*3/uL 4.4-11.0 [facility] Blood erythrocytes count (nu mber/volume)Ordered By: ED PROVIDER on 12-09-2023 RBC (Bld) [#/Vol] 4.77 10*6/uL 4.6-6.2 [facility] Blood hemoglobin measurement (mass/volume)Ordered By: ED PROVIDER on 12-09-2023 Hemoglobin (Bld) [Mass/Vol] 14.7 g/dL 13.0-16.5 [facility] Blood lymphocytes/100 leukoc ytesOrdered By: ED PROVIDER on 12-09-2023 Lymphocytes/100 WBC (Bld) 16.4 % 19-41 [facility] Blood monocytes/100 leukocyt esOrdered By: ED PROVIDER on 12-09-2023 Monocytes/100 WBC (Bld) 7.2 % 0-10 [facility] Blood platelet mean volumeOr dered By: ED PROVIDER on 12-09-2023 Platelet mean volume (Bld) [Entitic vol] 9.8 fL 6.2-12.0 [facility] Determination of erythrocyte mean corpuscular volume (MCV)Ordered By: ED PROVIDER on 12-09-2023 MCV (RBC) [Entitic vol] 93.5 fL 80-94 [facility] Hematocrit Auto (Bld) [Volum e fraction]Ordered By: ED PROVIDER on 12-09-2023 Hematocrit (Bld) [Volume fraction] 44.6 % 40-54 [facility] Laboratory - Chemistry and C hemistry - challengeOrdered By: ED PROVIDER on 12-09-2023 CO2 [Moles/Vol] 24.0 mmol/L 21.0-32.0 [facility] Urea nitrogen/Creatinine [Mass ratio] 22.8 mg/mg 10-20 [facility] Laboratory - Hematology and Cell countsOrdered By: ED PROVIDER on 12-09-2023 Erythrocyte distribution width (RBC) [Entitic vol] 44.6 fL 35.1-43.9 [facility] Erythrocyte distribution width (RBC) [Ratio] 12.9 % 11.6-14.6 [facility] Immature granulocytes/100 WBC (Bld) 0.900 % 0.0-0.9 [facility] Comment on above: IG% - Immature Granu locytes (promyelocytes, myelocytes and metamyelocytes) > 1% indicates that a LEFT SHIFT is Present. MCH (RBC) [Entitic mass] 30.8 pg 27.0-32.0 [facility] Nucleated RBC/100 WBC (Bld) [Ratio] 0 % 0-5 [facility] MCHC Auto (RBC) [Mass/Vol]Or dered By: ED PROVIDER on 12-09-2023 MCHC (RBC) [Mass/Vol] 33.0 g/dL 32-36 [facility] [place] [facility] No Panel InformationOrdered By: ED PROVIDER on 12-09-2023 Troponin I High Sensitivity 15 pg/mL 3.0-78.0 [facility] Comment on above: Please Note: New [place] t Units and Gender Specific Reference Ranges. For more information see Policy Stat Procedure [place] High Sensitivity Troponin (TNIH) and attachments. Estimated Creatinine Clearance Calc 69.10 ml/min [facility] Estimated GFR (MDRD) Amer 80 mL/min >60 [facility] Comment on above: GFR Calc Estimated GFR (MDRD) Non-Af Amer 66 mL/min >60 [facility] Comment on above: Non- GFR Calc No Panel InformationOrdered By: Beata Blancas on 12-09-2023 D-Dimer Quantitative (PE/DVT) 0.47 FEU/ug/m 0.27-0.49 [facility] Comment on above: NORMAL D-Dimer level (<0.50) indicates no DVT or PE. Platelets bldOrdered By: ED PROVIDER on 12-09-2023 Platelets (Bld) [#/Vol] 194 10*3/uL 150-450 [facility] Serum or plasma calcium rell urement (mass/volume)Ordered By: ED PROVIDER on 12-09-2023 Calcium [Mass/Vol] 9.1 mg/dL 8.5-10.1 [facility] Serum or plasma creatinine m easurement (mass/volume)Ordered By: ED PROVIDER on 12-09-2023 Creatinine [Mass/Vol] 1.14 mg/dL 0.70-1.30 [facility] [place] [facility] Comment on above: The validity of the calculated GFR & GFRAA in patients over 70 years has not been determined. Clinical correlation is essential. Serum or plasma urea nitroge n measurement (mass/volume)Ordered By: ED PROVIDER on 12-09-2023 Urea nitrogen [Mass/Vol] 26 mg/dL 7-18 [facility] Thin prep Papanicolaou smear with manual screeningOrdered By: ED PROVIDER on 12-09-2023 Thin prep Papanicolaou smear with manual screening 9 5-15 [facility] Absolute lymphocyte countOrd ered By: Marlene Corea on 04-25-2023 Lymphocytes Auto (Unsp spec) [#/Vol] 1.38 10*3/uL 0.83-4.51 [facility] Basophil percentageOrdered B y: Marlene Corea on 04-25-2023 Basophils/100 WBC (Bld) 0.3 % 0-1 [facility] Bilirubin [Mass/Vol] 0.40 mg/dL 0.20-1.00 [facility] Comment on above: For patients on eltr ombopag therapy, use of Dimension [place] TBIL is not recommended. Chloride [Moles/Vol] 109 mmol/L 98-107 [facility] Eosinophils/100 WBC (Bld) 0.0 % 0-5 [facility] Glucose [Mass/Vol] 98 mg/dL 74-106 [facility] Neutrophils (Bld) [#/Vol] 6.9 10*3/uL 2.0-7.7 [facility] Neutrophils/100 WBC (Bld) 77.2 % 47-70 [facility] Potassium [Moles/Vol] 4.6 mmol/L 3.5-5.1 [facility] [place] [facility] Protein [Mass/Vol] 7.3 g/dL 6.4-8.2 [facility] Sodium [Moles/Vol] 142 mmol/L 136-145 [facility] WBC (Bld) [#/Vol] 8.9 10*3/uL 4.4-11.0 [facility] Blood erythrocytes count (nu mber/volume)Ordered By: Marlene Corea on 04-25-2023 RBC (Bld) [#/Vol] 4.58 10*6/uL 4.6-6.2 [facility] Blood hemoglobin measurement (mass/volume)Ordered By: Marlene Corea on 04-25-2023 Hemoglobin (Bld) [Mass/Vol] 14.1 g/dL 13.0-16.5 [facility] Blood lymphocytes/100 leukoc ytesOrdered By: Marlene Corea on 04-25-2023 Lymphocytes/100 WBC (Bld) 15.5 % 19-41 [facility] Blood monocytes/100 leukocyt esOrdered By: Marlene Corea on 04-25-2023 Monocytes/100 WBC (Bld) 6.4 % 0-10 [facility] Blood platelet mean volumeOr dered By: Marlene Corea on 04-25-2023 Platelet mean volume (Bld) [Entitic vol] 10.4 fL 6.2-12.0 [facility] Determination of erythrocyte mean corpuscular volume (MCV)Ordered By: Marlene Corea on 04-25-2023 MCV (RBC) [Entitic vol] 97.6 fL 80-94 [facility] Hematocrit Auto (Bld) [Volum e fraction]Ordered By: Marlene Corea on 04-25-2023 Hematocrit (Bld) [Volume fraction] 44.7 % 40-54 [facility] Laboratory - Chemistry and C hemistry - challengeOrdered By: Marlene Corea on 04-25-2023 ALP [Catalytic activity/Vol] 82 U/L 45-117 [facility] ALT [Catalytic activity/Vol] 34 U/L 16-61 [facility] CO2 [Moles/Vol] 27.0 mmol/L 21.0-32.0 [facility] Cobalamin (Vitamin B12) [Mass/Vol] 353 pg/mL 211-911 [facility] Globulin (S) [Mass/Vol] 3.5 g/dL 2.2-4.2 [facility] Magnesium [Mass/Vol] 2.5 mg/dL 1.6-2.6 [facility] [facility] Urea nitrogen/Creatinine [Mass ratio] 16.1 mg/mg 10-20 [facility] Laboratory - Hematology and Cell countsOrdered By: Marlene Corea on 04-25-2023 Erythrocyte distribution width (RBC) [Entitic vol] 45.7 fL 35.1-43.9 [facility] Erythrocyte distribution width (RBC) [Ratio] 12.8 % 11.6-14.6 [facility] Immature granulocytes/100 WBC (Bld) 0.600 % 0.0-0.9 [facility] Comment on above: IG% - Immature Granu locytes (promyelocytes, myelocytes and metamyelocytes) > 1% indicates that a LEFT SHIFT is Present. MCH (RBC) [Entitic mass] 30.8 pg 27.0-32.0 [facility] Nucleated RBC/100 WBC (Bld) [Ratio] 0 % 0-5 [facility] MCHC Auto (RBC) [Mass/Vol]Or dered By: Marlene Corea on 04-25-2023 MCHC (RBC) [Mass/Vol] 31.5 g/dL 32-36 [facility] No Panel InformationOrdered By: Marlene Corea on 04-25-2023 Estimated GFR (MDRD) Amer 82 mL/min >60 [facility] Comment on above: GFR Calc Estimated GFR (MDRD) Non-Af Amer 68 mL/min >60 [facility] Comment on above: Non- GFR Calc Thyroid Stimulating Hormone (TSH) 1.10 uIU/mL 0.358-3.74 [facility] Vitamin D 25-Hydroxy 34.4 ng/mL [facility] Comment on above: Vitamin D 25(OH) Sta tus Range Deficiency <20 ng/mL (50nmol/L) Insufficiency 20 - 30 ng/mL (50 - 75 nmol/L) Sufficiency 30 - 100 ng/mL (75 - 250 nmol/L) Toxicity >100 ng/mL (>250 nmol/L) Platelets bldOrdered By: Nestor Corea on 04-25-2023 Platelets (Bld) [#/Vol] 208 10*3/uL 150-450 [facility] Serum or plasma albumin rell urement (mass/volume)Ordered By: Marlene Corea on 04-25-2023 Albumin [Mass/Vol] 3.8 g/dL 3.2-5.0 [facility] Serum or plasma albumin/glob ulin mass ratioOrdered By: Marlene Corea on 04-25-2023 Albumin/Globulin [Mass ratio] 1.1 {ratio} 0.9-2.4 [facility] Serum or plasma calcium rell urement (mass/volume)Ordered By: Marlene Corea on 04-25-2023 Calcium [Mass/Vol] 8.8 mg/dL 8.5-10.1 [facility] Serum or plasma creatinine m easurement (mass/volume)Ordered By: Marlene Corea on 04-25-2023 Creatinine [Mass/Vol] 1.12 mg/dL 0.70-1.30 [facility] Comment on above: The validity of the calculated GFR & GFRAA in patients over 70 years has not been determined. Clinical correlation is essential. Serum or plasma urea nitroge n measurement (mass/volume)Ordered By: Marlene Corea on 04-25-2023 Urea nitrogen [Mass/Vol] 18 mg/dL 7-18 [facility] Thin prep Papanicolaou smear with manual screeningOrdered By: Marlene Corea on 04-25-2023 Thin prep Papanicolaou smear with manual screening 19 U/L 15-37 [facility] Thin prep Papanicolaou smear with manual screening 6 5-15 [facility] Absolute lymphocyte countOrd ered By: Dr. Alcala on 01-07-2023 Lymphocytes Auto (Unsp spec) [#/Vol] 1.07 10*3/uL 0.83-4.51 [facility] Basophil percentageOrdered B y: Dr. Alcala on 01-07-2023 Basophils/100 WBC (Bld) 0.1 % 0-1 [facility] Chloride [Moles/Vol] 110 mmol/L 98-107 [facility] Eosinophils/100 WBC (Bld) 0.0 % 0-5 [facility] Glucose [Mass/Vol] 112 mg/dL 74-106 [facility] Comment on above: Fasting Glucose resu lt from 100 to 125 mg/dL suggests IMPAIRED HOMEOSTASIS per A.D.A. criteria. Neutrophils (Bld) [#/Vol] 6.0 10*3/uL 2.0-7.7 [facility] Neutrophils/100 WBC (Bld) 78.4 % 47-70 [facility] Potassium [Moles/Vol] 4.4 mmol/L 3.5-5.1 [facility] Sodium [Moles/Vol] 142 mmol/L 136-145 [facility] WBC (Bld) [#/Vol] 7.7 10*3/uL 4.4-11.0 [facility] Blood erythrocytes count (nu mber/volume)Ordered By: Dr. Alcala on 01-07-2023 RBC (Bld) [#/Vol] 4.54 10*6/uL 4.6-6.2 [facility] Blood hemoglobin measurement (mass/volume)Ordered By: Dr. Alcala on 01-07-2023 Hemoglobin (Bld) [Mass/Vol] 14.5 g/dL 13.0-16.5 [facility] Blood lymphocytes/100 leukoc ytesOrdered By: Dr. Alcala on 01-07-2023 Lymphocytes/100 WBC (Bld) 13.9 % 19-41 [facility] Blood monocytes/100 leukocyt esOrdered By: Dr. Alcala on 01-07-2023 Monocytes/100 WBC (Bld) 6.9 % 0-10 [facility] Blood platelet mean volumeOr dered By: Dr. Alcala on 01-07-2023 Platelet mean volume (Bld) [Entitic vol] 9.6 fL 6.2-12.0 [facility] Determination of erythrocyte mean corpuscular volume (MCV)Ordered By: Dr. Alcala on 01-07-2023 MCV (RBC) [Entitic vol] 93.8 fL 80-94 [facility] Hematocrit Auto (Bld) [Volum e fraction]Ordered By: Dr. Alcala on 01-07-2023 Hematocrit (Bld) [Volume fraction] 42.6 % 40-54 [facility] Laboratory - Chemistry and C hemistry - challengeOrdered By: Dr. Alcala on 01-07-2023 CO2 [Moles/Vol] 29.0 mmol/L 21.0-32.0 [facility] Urea nitrogen/Creatinine [Mass ratio] 16.5 mg/mg 10-20 [facility] Laboratory - Hematology and Cell countsOrdered By: Dr. Alcala on 01-07-2023 Erythrocyte distribution width (RBC) [Entitic vol] 44.3 fL 35.1-43.9 [facility] Erythrocyte distribution width (RBC) [Ratio] 12.8 % 11.6-14.6 [facility] Immature granulocytes/100 WBC (Bld) 0.700 % 0.0-0.9 [facility] Comment on above: IG% - Immature Granu locytes (promyelocytes, myelocytes and metamyelocytes) > 1% indicates that a LEFT SHIFT is Present. MCH (RBC) [Entitic mass] 31.9 pg 27.0-32.0 [facility] Nucleated RBC/100 WBC (Bld) [Ratio] 0 % 0-5 [facility] MCHC Auto (RBC) [Mass/Vol]Or dered By: Dr. Alcala on 01-07-2023 MCHC (RBC) [Mass/Vol] 34.0 g/dL 32-36 [facility] No Panel InformationOrdered By: Dr. Alcala on 01-07-2023 Estimated Creatinine Clearance Calc 63.98 ml/min [facility] Estimated GFR (MDRD) Amer 91 mL/min >60 [facility] Comment on above: GFR Calc Estimated GFR (MDRD) Non-Af Amer 75 mL/min >60 [facility] Comment on above: Non- GFR Calc Troponin I High Sensitivity 10 pg/mL 3.0-78.0 [facility] Comment on above: Please Note: New [place] t Units and Gender Specific Reference Ranges. For more information see Policy Stat Procedure [place] High Sensitivity Troponin (TNIH) and attachments. Platelets bldOrdered By: Dr. Alcala on 01-07-2023 Platelets (Bld) [#/Vol] 187 10*3/uL 150-450 [facility] Serum or plasma calcium rell urement (mass/volume)Ordered By: Dr. Alcala on 01-07-2023 Calcium [Mass/Vol] 9.3 mg/dL 8.5-10.1 [facility] Serum or plasma creatinine m easurement (mass/volume)Ordered By: Dr. Alcala on 01-07-2023 Creatinine [Mass/Vol] 1.03 mg/dL 0.70-1.30 [facility] Comment on above: The validity of the calculated GFR & GFRAA in patients over 70 years has not been determined. Clinical correlation is essential. Serum or plasma urea nitroge n measurement (mass/volume)Ordered By: Dr. Alcala on 01-07-2023 Urea nitrogen [Mass/Vol] 17 mg/dL 7-18 [facility] Thin prep Papanicolaou smear with manual screeningOrdered By: Dr. Alcala on 01-07-2023 Thin prep Papanicolaou smear with manual screening 3 5-15 [facility] Absolute lymphocyte countOrd ered By: Markus Hugo on 10-12-2022 Lymphocytes Auto (Unsp spec) [#/Vol] 1.58 10*3/uL 0.83-4.51 [facility] Basophil percentageOrdered B y: Markus Hugo on 10-12-2022 Basophils/100 WBC (Bld) 0.5 % 0-1 [facility] Bilirubin [Mass/Vol] 0.40 mg/dL 0.20-1.00 [facility] Comment on above: For patients on eltr ombopag therapy, use of Dimension [place] TBIL is not recommended. Chloride [Moles/Vol] 110 mmol/L 98-107 [facility] Eosinophils/100 WBC (Bld) 0.0 % 0-5 [facility] Glucose [Mass/Vol] 108 mg/dL 74-106 [facility] Comment on above: Fasting Glucose resu lt from 100 to 125 mg/dL suggests IMPAIRED HOMEOSTASIS per A.D.A. criteria. Neutrophils (Bld) [#/Vol] 5.8 10*3/uL 2.0-7.7 [facility] Neutrophils/100 WBC (Bld) 70.7 % 47-70 [facility] Potassium [Moles/Vol] 4.1 mmol/L 3.5-5.1 [facility] Protein [Mass/Vol] 7.3 g/dL 6.4-8.2 [facility] Sodium [Moles/Vol] 144 mmol/L 136-145 [facility] WBC (Bld) [#/Vol] 8.3 10*3/uL 4.4-11.0 [facility] Blood erythrocytes count (nu mber/volume)Ordered By: Markus Hugo on 10-12-2022 RBC (Bld) [#/Vol] 4.70 10*6/uL 4.6-6.2 [facility] Blood hemoglobin measurement (mass/volume)Ordered By: Markus Hugo on 10-12-2022 Hemoglobin (Bld) [Mass/Vol] 14.5 g/dL 13.0-16.5 [facility] Blood lymphocytes/100 leukoc ytesOrdered By: Markus Hugo on 10-12-2022 Lymphocytes/100 WBC (Bld) 19.1 % 19-41 [facility] Blood monocytes/100 leukocyt esOrdered By: Markus Hugo on 10-12-2022 Monocytes/100 WBC (Bld) 8.9 % 0-10 [facility] Blood platelet mean volumeOr dered By: Markus Hugo on 10-12-2022 Platelet mean volume (Bld) [Entitic vol] 9.8 fL 6.2-12.0 [facility] Determination of erythrocyte mean corpuscular volume (MCV)Ordered By: Markus Hugo on 10-12-2022 MCV (RBC) [Entitic vol] 94.9 fL 80-94 [facility] Direct bilirubinOrdered By: Markus Hugo on 10-12-2022 Bilirubin.direct [Mass/Vol] 0.16 mg/dL 0.00-0.30 [facility] Hematocrit Auto (Bld) [Volum e fraction]Ordered By: Markus Hugo on 10-12-2022 Hematocrit (Bld) [Volume fraction] 44.6 % 40-54 [facility] Laboratory - Chemistry and C hemistry - challengeOrdered By: Markus Hugo on 10-12-2022 ALP [Catalytic activity/Vol] 97 U/L 45-117 [facility] ALT [Catalytic activity/Vol] 53 U/L 16-61 [facility] CO2 [Moles/Vol] 26.0 mmol/L 21.0-32.0 [facility] Globulin (S) [Mass/Vol] 3.6 g/dL 2.2-4.2 [facility] Lipase [Catalytic activity/Vol] 65 U/L 73-393 [facility] Natriuretic peptide B (Bld) [Mass/Vol] 23.1 pg/mL 0-100 [facility] Urea nitrogen/Creatinine [Mass ratio] 19.1 mg/mg 10-20 [facility] Laboratory - Hematology and Cell countsOrdered By: Markus Hugo on 10-12-2022 Erythrocyte distribution width (RBC) [Entitic vol] 45.2 fL 35.1-43.9 [facility] Erythrocyte distribution width (RBC) [Ratio] 12.9 % 11.6-14.6 [facility] Immature granulocytes/100 WBC (Bld) 0.800 % 0.0-0.9 [facility] Comment on above: IG% - Immature Granu locytes (promyelocytes, myelocytes and metamyelocytes) > 1% indicates that a LEFT SHIFT is Present. MCH (RBC) [Entitic mass] 30.9 pg 27.0-32.0 [facility] Nucleated RBC/100 WBC (Bld) [Ratio] 0 % 0-5 [facility] MCHC Auto (RBC) [Mass/Vol]Or dered By: Markus Hugo on 10-12-2022 MCHC (RBC) [Mass/Vol] 32.5 g/dL 32-36 [facility] No Panel InformationOrdered By: Markus Hugo on 10-12-2022 Troponin I High Sensitivity 17 pg/mL 3.0-78.0 [facility] Comment on above: Please Note: New [place] t Units and Gender Specific Reference Ranges. For more information see Policy Stat Procedure [place] High Sensitivity Troponin (TNIH) and attachments. D-Dimer Quantitative (PE/DVT) 0.56 FEU/ug/m 0.27-0.49 [facility] Comment on above: CRITICAL VALUE VERIF IED. CALLED TO JUDITH STUBBS RN [id number] Ar Cotto.RESULTS READ BACK BY SAME . D-Dimer ELEVATED (>0.49): Additional studies and clinicalassessments are indicated to conclude diagnosis of:Deep Vein Thrombosis (DVT) or Pulmonary Embolism (PE) Estimated Creatinine Clearance Calc 59.91 ml/min [facility] Estimated GFR (MDRD) Amer 84 mL/min >60 [facility] Comment on above: GFR Calc Estimated GFR (MDRD) Non-Af Amer 69 mL/min >60 [facility] Comment on above: Non- GFR Calc Platelets bldOrdered By: Selene Hugo on 10-12-2022 Platelets (Bld) [#/Vol] 206 10*3/uL 150-450 [facility] Serum or plasma albumin rell urement (mass/volume)Ordered By: Markus Hugo on 10-12-2022 Albumin [Mass/Vol] 3.7 g/dL 3.2-5.0 [facility] Serum or plasma calcium rell urement (mass/volume)Ordered By: Markus Hugo on 10-12-2022 Calcium [Mass/Vol] 9.0 mg/dL 8.5-10.1 [facility] Serum or plasma creatinine m easurement (mass/volume)Ordered By: Markus Hugo on 10-12-2022 Creatinine [Mass/Vol] 1.10 mg/dL 0.70-1.30 [facility] Comment on above: The validity of the calculated GFR & GFRAA in patients over 70 years has not been determined. Clinical correlation is essential. Serum or plasma urea nitroge n measurement (mass/volume)Ordered By: Markus Hugo on 10-12-2022 Urea nitrogen [Mass/Vol] 21 mg/dL 06-11 [facility] Thin prep Papanicolaou smear with manual screeningOrdered By: Markus Hugo on 10-12-2022 Thin prep Papanicolaou smear with manual screening 26 U/L 15 [facility] Thin prep Papanicolaou smear with manual screening 8 5-15 [facility] CBC + DIFFon 03-16-2022 Baso # 0.00 x10EE3/UL Normal 0.00 - 0.10 [facility] Comment on above: Performed By: #### 2 [id number] #### [facility],[address] [place] [address]24 Basophils/100 WBC (Bld) 0.3 % Normal 0.0 - 2.0 [facility] Comment on above: Performed By: #### 2 11241 #### [facility],[address] [place] [address] CBC + DIFF Normal [facility] Comment on above: Result Comment: CBC- COMPLETE BLOOD COUNT Performed By: #### 2 43677 #### [facility],[address] [place] [address] 89462 EO # 0.00 x10EE3/UL Normal 0.00 - 0.50 [facility] Comment on above: Performed By: #### 2 25186 #### [facility],[address] [place] [address] 63202 Eosinophils/100 WBC (Bld) 0.0 % Normal 0.0 - 7.0 [facility] Comment on above: Performed By: #### 2 97911 #### [facility],[address] [place] [address] 47053 Erythrocyte distribution width (RBC) [Ratio] 13.0 % Normal 12.0 - 15.6 [facility] Comment on above: Performed By: #### 2 55764 #### [facility],[address] [place] [address] Hematocrit (Bld) [Volume fraction] 41.6 % Normal 40.0 - 52.0 [facility] Comment on above: Performed By: #### 2 14588 #### [facility],[address] [place] [address] Hemoglobin (Bld) [Mass/Vol] 14.3 g/dL Normal 13.0 - 17.5 [facility] Comment on above: Performed By: #### 2 97155 #### [facility],[address] [place] [address] Lymph # 1.70 x10EE3/UL Normal 0.80 - 2.80 [facility] Comment on above: Performed By: #### 2 33390 #### [place] [address] Lymphocytes/100 WBC (Bld) 25.0 % Normal 20.0 - 45.0 [facility] Comment on above: Performed By: #### 2 19267 #### [facility],[address] [place] [address] MANUAL DIFF N/A Normal [facility] Comment on above: Performed By: #### 2 61149 #### [place] [address] MCH (RBC) [Entitic mass] 31 pg Normal 27 - 33 [facility] Comment on above: Performed By: #### 2 30608 #### [place] [address] MCHC 34 X10 3 Normal 32 - 36 [facility] Comment on above: Performed By: #### 2 25534 #### [place] [address] MCV (RBC) [Entitic vol] 91 fL Normal 81 - 98 [facility] Comment on above: Performed By: #### 2 36322 #### [place] [address] [place] # 0.60 x10EE3/UL Normal 0.20 - 1.00 [facility] Comment on above: Performed By: #### 2 78895 #### [facility],[address] [place] [address]74 MONOS % 8.6 % Normal 0.0 - 10.0 [facility] Comment on above: Performed By: #### 2 96314 #### [facility],[address] [place] [address] Morphology Jeronimo (Bld) [Interp] N/A Normal [facility] Comment on above: Performed By: #### 2 16021 #### [facility],[address] [place] [address] Neut # 4.40 x10EE3/UL Normal 1.50 - 7.10 [facility] Comment on above: Performed By: #### 2 16705 #### [facility],[address] [place] [address] Neutrophils/100 WBC (Bld) 66.1 % Normal 46.0 - 76.0 [facility] Comment on above: Performed By: #### 2 69144 #### [facility],[address] [place] [address] PLATELET 209 x10EE3/UL Normal 150 - 450 [facility] Comment on above: Performed By: #### 2 49412 #### [facility],[address] [place] [address] Platelet mean volume (Bld) [Entitic vol] 8.2 fL Normal 6.4 - 10.5 [facility] Comment on above: Result Comment: AUTO MATED DIFFERENTIAL Performed By: #### 2 60817 #### [place] [id number] RBC 4.59 x 10EE6/UL Normal 4.50 - 6.00 [facility] Comment on above: Performed By: #### 2 81832 #### [facility],[address] [place], [place] [id number] WBC 6.7 x 10EE3/UL Normal 4.5 - 10.8 [facility] Comment on above: Performed By: #### 2 46049 #### [facility],[address] [place] [address] 42046 CMP with eGFRon 03-16-2022 AGE 76 years Normal [facility] Comment on above: Performed By: #### 2 61483 #### [facility],[address] [place] [address] 65339 Albumin [Mass/Vol] 3.6 g/dL Normal 3.4 - 5.0 [facility] Comment on above: Performed By: #### 2 11032 #### [facility],[address] [place] [address] Albumin/Globulin [Mass ratio] 1.1 {ratio} Normal 0.9 - 1.6 [facility] Comment on above: Performed By: #### 2 24496 #### [facility],[address] [place] [address] 67667 ALK PHOS 100 U/L Normal 46 - 116 [facility] Comment on above: Performed By: #### 2 52055 #### [facility],[address] [place] [address] 52646 ALT [Catalytic activity/Vol] 34 U/L Normal 16 - 63 [facility] Comment on above: Performed By: #### 2 16769 #### [facility],[address] [place] [address] 64938 Anion gap [Moles/Vol] 11 mmol/L Normal 10 - 20 [facility] Comment on above: Performed By: #### 2 52296 #### [facility],[address] [place] [address] 62731 AST [Catalytic activity/Vol] 20 U/L Normal 15 - 37 [facility] Comment on above: Performed By: #### 2 92904 #### [facility],[address] [place] [address] 69264 B/C RATIO 16 ratio Normal 0 - 30 [facility] Comment on above: Performed By: #### 2 82706 #### [facility],[address] [place], [place] [id number] Bilirubin [Mass/Vol] 0.7 mg/dL Normal 0.2 - 1.0 [facility] Comment on above: Performed By: #### 2 73486 #### [facility],[address] [place] [address] Calcium [Mass/Vol] 8.6 mg/dL Normal 8.5 - 10.1 [facility] Comment on above: Performed By: #### 2 78272 #### [facility],[address] [place] [address] Chloride [Moles/Vol] 105 mmol/L Normal 98 - 107 [facility] Comment on above: Performed By: #### 2 19654 #### [facility],[address] [place] [address] CMP with eGFR Normal [facility] Comment on above: Result Comment: COMP REHENSIVE METABOLIC PANEL Performed By: #### 2 37646 #### [facility],[address] [place] [address] CO2 [Moles/Vol] 28.0 mmol/L Normal 21.0 - 32.0 [facility] Comment on above: Performed By: #### 2 97150 #### [facility],[address] [place], [place] [id number] Creatinine [Mass/Vol] 1.11 mg/dL Normal 0.70 - 1.30 [facility] Comment on above: Performed By: #### 2 82994 #### [facility],[address] [place], [place] [id number] GFR/1.73 sq M.predicted among non-blacks MDRD (S/P/Bld) [Vol rate/Area] mL/min/{1.73_m2} Normal 60 - 999 [facility] Comment on above: Performed By: #### 2 74549 #### [facility],[address] [place] [address] 74299 Result Comment: ACCO RDING TO THE NATIONAL KIDNEY DISEASE EDUCATION PROGRAM(NKDE), A NORMAL eGFR IS A VALUE GREATER THAN OR EQUAL TO 60 ML/MIN/1.73 SQ METERS. CHRONIC KIDNEY DISEASE: <60mL/MIN/1.73 SQ METERS KIDNEY FAILURE: <15mL/MIN/1.73 SQ METERS THIS TEST SHOULD ONLY BE USED FOR PATIENTS 18 YEARS OF AGE AND OLDER. Globulin (S) [Mass/Vol] 3.3 g/dL Normal 1.5 - 3.8 [facility] Comment on above: Performed By: #### 2 56070 #### [facility],[address] [place] [address] 47227 Glucose [Mass/Vol] 96 mg/dL Normal 74 - 106 [facility] Comment on above: Performed By: #### 2 79970 #### [facility],[address] [place] [address] 34784 Potassium [Moles/Vol] 4.0 mmol/L Normal 3.5 - 5.1 [facility] Comment on above: Performed By: #### 2 81142 #### [facility],[address] [place] [address] 37722 Protein [Mass/Vol] 6.9 g/dL Normal 6.4 - 8.2 [facility] Comment on above: Performed By: #### 2 79124 #### [facility],[address] [place] [address] 24416 Sodium [Moles/Vol] 140 mmol/L Normal 136 - 145 [facility] Comment on above: Performed By: #### 2 37428 #### [facility],[address] [place] [address] 82671 Urea nitrogen [Mass/Vol] 18 mg/dL Normal 7 - 18 [facility] Comment on above: Performed By: #### 2 10107 #### [facility],[address] [place] [address] 55723 CBC + DIFFon 02-21-2022 Baso # 0.00 x10EE3/UL Normal 0.00 - 0.10 [facility] Comment on above: Performed By: #### 2 93610 #### [facility],[address] [place] [address] 21621 Basophils/100 WBC (Bld) 0.2 % Normal 0.0 - 2.0 [facility] Comment on above: Performed By: #### 2 97319 #### [facility],[address] [place] [address] 46156 CBC + DIFF Normal [facility] Comment on above: Result Comment: CBC- COMPLETE BLOOD COUNT Performed By: #### 2 75751 #### [facility],[address] [place] [address] 11186 EO # 0.00 x10EE3/UL Normal 0.00 - 0.50 [facility] Comment on above: Performed By: #### 2 69074 #### [facility],[address] [place] [address] 62274 Eosinophils/100 WBC (Bld) 0.0 % Normal 0.0 - 7.0 [facility] Comment on above: Performed By: #### 2 90191 #### [facility],[address] [place] [address] 39009 Erythrocyte distribution width (RBC) [Ratio] 13.2 % Normal 12.0 - 15.6 [facility] Comment on above: Performed By: #### 2 10882 #### [facility],[address] [place] [address] 23393 Hematocrit (Bld) [Volume fraction] 41.4 % Normal 40.0 - 52.0 [facility] Comment on above: Performed By: #### 2 98975 #### [facility],[address] [place] [address] 97238 Hemoglobin (Bld) [Mass/Vol] 14.0 g/dL Normal 13.0 - 17.5 [facility] Comment on above: Performed By: #### 2 82445 #### [facility],[address] [place] [address] Lymph # 1.40 x10EE3/UL Normal 0.80 - 2.80 [facility] Comment on above: Performed By: #### 2 56752 #### [facility],[address] [place] [address] Lymphocytes/100 WBC (Bld) 24.1 % Normal 20.0 - 45.0 [facility] Comment on above: Performed By: #### 2 18641 #### [facility],[address] [place] [address] MANUAL DIFF N/A Normal [facility] Comment on above: Performed By: #### 2 34953 #### [facility],[address] [place] [address] MCH (RBC) [Entitic mass] 31 pg Normal 27 - 33 [facility] Comment on above: Performed By: #### 2 68171 #### [facility],[address] [place] [address] MCHC 34 X10 3 Normal 32 - 36 [facility] Comment on above: Performed By: #### 2 45918 #### [facility],[address] [place] [address] MCV (RBC) [Entitic vol] 91 fL Normal 81 - 98 [facility] Comment on above: Performed By: #### 2 66194 #### [facility],[address] [place] [address] [place] # 0.50 x10EE3/UL Normal 0.20 - 1.00 [facility] Comment on above: Performed By: #### 2 94686 #### [facility],[address] [place] [address] MONOS % 8.6 % Normal 0.0 - 10.0 [facility] Comment on above: Performed By: #### 2 23144 #### [facility],[address] [place] [address] 09777 Morphology Jeronimo (Bld) [Interp] N/A Normal [facility] Comment on above: Performed By: #### 2 36129 #### [facility],[address] [place] [address] 32139 Neut # 4.00 x10EE3/UL Normal 1.50 - 7.10 [facility] Comment on above: Performed By: #### 2 48694 #### [facility],[address] [place] [address] 46959 Neutrophils/100 WBC (Bld) 67.1 % Normal 46.0 - 76.0 [facility] Comment on above: Performed By: #### 2 02071 #### [address] [address] PLATELET 202 x10EE3/UL Normal 150 - 450 [facility] Comment on above: Performed By: #### 2 65510 #### [facility],[address] [place] [address] 28867 Platelet mean volume (Bld) [Entitic vol] 8.0 fL Normal 6.4 - 10.5 [facility] Comment on above: Result Comment: AUTO MATED DIFFERENTIAL Performed By: #### 2 74180 #### [facility],[address] [place] [address] 45039 RBC 4.54 x 10EE6/UL Normal 4.50 - 6.00 [facility] Comment on above: Performed By: #### 2 18859 #### [facility],[address] [place] [address] 75396 WBC 5.9 x 10EE3/UL Normal 4.5 - 10.8 [facility] Comment on above: Performed By: #### 2 67477 #### [facility],[address] [place] [address] 43755 CHEST 2 VIEWSon 02-21-2022 CHEST 2 VIEWS [place] [address] Patient: LIBRADO GUILLEN Phone#: : [phone] Age: 76 Gender: M Pt. Type: Out Account: [id number] Location: Ordering: DOMINIQUE HERRERA Exam Date: 02/21/2022/11:19 Family Phys: SHANNAN RAYMUNDO Charge Code: 618681 Physician: Haralson Order #: [id number] DLP Dose#: PROCEDURE: X-RAY CHEST 2 VIEWS COMPARISON: None. INDICATIONS: Pre-operative evaluation. FINDINGS: LUNGS: Normal. No significant pulmonary parenchymal abnormalities. VASCULATURE: Normal. Unremarkable pulmonary vasculature. CARDIAC: Normal. No cardiac silhouette abnormality or cardiomegaly. MEDIASTINUM: Aortic calcifications PLEURA: Normal. No effusion or pleural thickening. BONES: Normal. No fracture or visible bony lesion. OTHER: Surgical clips project at the right upper thorax. Surgical clips in the right upper quadrant. CONCLUSION: No acute disease. Dictated by: Leigh Ann Sal MD on 02/21/2022 at 11:29 Approved by: Leigh Ann Sal MD on 02/21/2022 at 11:31 Normal [facility] CMP with eGFRon 02-21-2022 AGE 76 years Normal [facility] Comment on above: Performed By: #### 2 31226 #### [facility],[address] [place] [address] 52844 Albumin [Mass/Vol] 3.5 g/dL Normal 3.4 - 5.0 [facility] Comment on above: Performed By: #### 2 19518 #### [facility],[address] [place] [address] 22523 Albumin/Globulin [Mass ratio] 1.0 {ratio} Normal 0.9 - 1.6 [facility] Comment on above: Performed By: #### 2 43188 #### [facility],[address] [place] [address] 02932 ALK PHOS 101 U/L Normal 46 - 116 [facility] Comment on above: Performed By: #### 2 55526 #### [facility],[address] [place] [address] 11800 ALT [Catalytic activity/Vol] 38 U/L Normal 16 - 63 [facility] Comment on above: Performed By: #### 2 19372 #### [facility],[address] [place] [address] 72601 Anion gap [Moles/Vol] 11 mmol/L Normal 10 - 20 [facility] Comment on above: Performed By: #### 2 40781 #### [facility],[address] [place] [address] AST [Catalytic activity/Vol] 22 U/L Normal 15 - 37 [facility] Comment on above: Performed By: #### 2 83599 #### [facility],[address] [place], [place] [address] B/C RATIO 18 ratio Normal 0 - 30 [facility] Comment on above: Performed By: #### 2 82959 #### [facility],[address] [place] [address] 41773 Bilirubin [Mass/Vol] 0.5 mg/dL Normal 0.2 - 1.0 [facility] Comment on above: Performed By: #### 2 79966 #### [facility],[address] [place] [address] 07831 Calcium [Mass/Vol] 8.9 mg/dL Normal 8.5 - 10.1 [facility] Comment on above: Performed By: #### 2 74185 #### [facility],[address] [place] [address] 94751 Chloride [Moles/Vol] 106 mmol/L Normal 98 - 107 [facility] Comment on above: Performed By: #### 2 93654 #### [facility],[address] [place] [address] 27918 CMP with eGFR Normal [facility] Comment on above: Result Comment: COMP REHENSIVE METABOLIC PANEL Performed By: #### 2 54004 #### [facility],[address] [place] [address] 45755 CO2 [Moles/Vol] 28.1 mmol/L Normal 21.0 - 32.0 [facility] Comment on above: Performed By: #### 2 93283 #### [facility],[address] [place] [address] 71573 Creatinine [Mass/Vol] 1.13 mg/dL Normal 0.70 - 1.30 [facility] Comment on above: Performed By: #### 2 58626 #### [facility],[address] [place], [place] [address] GFR/1.73 sq M.predicted among non-blacks MDRD (S/P/Bld) [Vol rate/Area] mL/min/{1.73_m2} Normal 60 - 999 [facility] Comment on above: Performed By: #### 2 85264 #### [facility],[address] [place] [address] Result Comment: ACCO RDING TO THE NATIONAL KIDNEY DISEASE EDUCATION PROGRAM(NKDE), A NORMAL eGFR IS A VALUE GREATER THAN OR EQUAL TO 60 ML/MIN/1.73 SQ METERS. CHRONIC KIDNEY DISEASE: <60mL/MIN/1.73 SQ METERS KIDNEY FAILURE: <15mL/MIN/1.73 SQ METERS THIS TEST SHOULD ONLY BE USED FOR PATIENTS 18 YEARS OF AGE AND OLDER. Globulin (S) [Mass/Vol] 3.5 g/dL Normal 1.5 - 3.8 [facility] Comment on above: Performed By: #### 2 33587 #### [facility],[address] [place] [address] 17141 Glucose [Mass/Vol] 106 mg/dL Normal 74 - 106 [facility] Comment on above: Performed By: #### 2 43626 #### [facility],[address] [place] [address] 29503 Potassium [Moles/Vol] 3.8 mmol/L Normal 3.5 - 5.1 [facility] Comment on above: Performed By: #### 2 32289 #### [facility],[address] [place] [address] 53949 Protein [Mass/Vol] 7.0 g/dL Normal 6.4 - 8.2 [facility] Comment on above: Performed By: #### 2 67086 #### [facility],[address] [place] [address] 23108 Sodium [Moles/Vol] 141 mmol/L Normal 136 - 145 [facility] Comment on above: Performed By: #### 2 99806 #### [facility],[address] [place] [address] 74507 Urea nitrogen [Mass/Vol] 20 mg/dL High 7 - 18 [facility] Comment on above: Performed By: #### 2 45908 #### [facility],[address] [place] [address] 02531 Absolute lymphocyte counton 01-31-2022 Lymphocytes Auto (Unsp spec) [#/Vol] 1.10 10*3/uL 0.83-4.51 [facility] Work Phone: Basophil percentageon 2021 Basophils/100 WBC (Bld) 1.4 % 0-1 [facility] Work Phone: Bilirubin [Mass/Vol] 0.50 mg/dL 0.20-1.00 [facility] Work Phone: Comment on above: For patients on eltr ombopag therapy, use of Dimension [place] TBIL is not recommended. Chloride [Moles/Vol] 108 mmol/L 98-107 [facility] Work Phone: Eosinophils/100 WBC (Bld) 3.5 % 0-5 [facility] Work Phone: Glucose [Mass/Vol] 71 mg/dL 74-106 [facility] Work Phone: Neutrophils (Bld) [#/Vol] 5.1 10*3/uL 2.0-7.7 [facility] Work Phone: Neutrophils/100 WBC (Bld) 69.2 % 47-70 [facility] Work Phone: Potassium [Moles/Vol] 3.9 mmol/L 3.5-5.1 [facility] Work Phone: Protein [Mass/Vol] 7.4 g/dL 6.4-8.2 [facility] Work Phone: Sodium [Moles/Vol] 140 mmol/L 136-145 [facility] Work Phone: WBC (Bld) [#/Vol] 7.3 10*3/uL 4.4-11.0 [facility] Work Phone: Blood erythrocytes count (nu mber/volume)on 01-31-2022 RBC (Bld) [#/Vol] 4.75 10*6/uL 4.6-6.2 [facility] Work Phone: Blood hemoglobin measurement (mass/volume)on 01-31-2022 Hemoglobin (Bld) [Mass/Vol] 14.9 g/dL 13.0-16.5 [facility] Work Phone: Blood lymphocytes/100 leukoc yteson 01-31-2022 Lymphocytes/100 WBC (Bld) 15.0 % 19-41 [facility] Work Phone: Blood monocytes/100 leukocyt eson 01-31-2022 Monocytes/100 WBC (Bld) 10.2 % 0-10 [facility] Work Phone: [phone] Blood platelet mean volumeon 01-31-2022 Platelet mean volume (Bld) [Entitic vol] 10.0 fL 6.2-12.0 [facility] Work Phone: Determination of erythrocyte mean corpuscular volume (MCV)on 01-31-2022 MCV (RBC) [Entitic vol] 94.1 fL 80-94 [facility] Work Phone: Hematocrit Auto (Bld) [Volum e fraction]on 01-31-2022 Hematocrit (Bld) [Volume fraction] 44.7 % 40-54 [facility] Work Phone: Laboratory - Chemistry and C hemistry - challengeon 01-31-2022 ALP [Catalytic activity/Vol] 112 U/L 45-117 [facility] Work Phone: ALT [Catalytic activity/Vol] 44 U/L 16-61 [facility] Work Phone: CO2 [Moles/Vol] 26.0 mmol/L 21.0-32.0 [facility] Work Phone: Globulin (S) [Mass/Vol] 3.6 g/dL 2.2-4.2 [facility] Work Phone: Magnesium [Mass/Vol] 2.5 mg/dL 1.6-2.6 [facility] Work Phone: Urea nitrogen/Creatinine [Mass ratio] 19.8 mg/mg 10-20 [facility] Work Phone: Laboratory - Hematology and Cell countson 01-31-2022 Erythrocyte distribution width (RBC) [Entitic vol] 45.1 fL 35.1-43.9 [facility] Work Phone: Erythrocyte distribution width (RBC) [Ratio] 13.1 % 11.6-14.6 [facility] Work Phone: Immature granulocytes/100 WBC (Bld) 0.700 % 0.0-0.9 [facility] Work Phone: Comment on above: IG% - Immature Granu locytes (promyelocytes, myelocytes and metamyelocytes) > 1% indicates that a LEFT SHIFT is Present. MCH (RBC) [Entitic mass] 31.4 pg 27.0-32.0 [facility] Work Phone: Nucleated RBC/100 WBC (Bld) [Ratio] 0 % 0-5 [facility] Work Phone: MCHC Auto (RBC) [Mass/Vol]on 01-31-2022 MCHC (RBC) [Mass/Vol] 33.3 g/dL 32-36 [facility] Work Phone: No Panel Informationon 01-31 Estimated GFR (MDRD) Amer 88 mL/min >60 [facility] Work Phone: Comment on above: GFR Calc Estimated GFR (MDRD) Non-Af Amer 73 mL/min >60 [facility] Work Phone: Comment on above: Non- GFR Calc Thyroid Stimulating Hormone (TSH) 1.89 uIU/mL 0.358-3.74 [facility] Work Phone: Platelets bldon 01-31-2022 Platelets (Bld) [#/Vol] 218 10*3/uL 150-450 [facility] Work Phone: Serum or plasma albumin rell urement (mass/volume)on 01-31-2022 Albumin [Mass/Vol] 3.8 g/dL 3.2-5.0 [facility] Work Phone: Serum or plasma albumin/glob ulin mass ratioon 01-31-2022 Albumin/Globulin [Mass ratio] 1.1 {ratio} 0.9-2.4 [facility] Work Phone: Serum or plasma calcium rell urement (mass/volume)on 01-31-2022 Calcium [Mass/Vol] 8.9 mg/dL 8.5-10.1 [facility] Work Phone: Serum or plasma creatinine m easurement (mass/volume)on 01-31-2022 Creatinine [Mass/Vol] 1.06 mg/dL 0.70-1.30 [facility] Work Phone: Comment on above: The validity of the calculated GFR & GFRAA in patients over 70 years has not been determined. Clinical correlation is essential. Serum or plasma ferritin james surement (mass/volume)on 01-31-2022 Ferritin [Mass/Vol] 49 ng/mL 26-388 [facility] Work Phone: Serum or plasma urea nitroge n measurement (mass/volume)on 01-31-2022 Urea nitrogen [Mass/Vol] 21 mg/dL 7-18 [facility] Work Phone: Thin prep Papanicolaou smear with manual screeningon 01-31-2022 Thin prep Papanicolaou smear with manual screening 24 U/L 15-37 [facility] Work Phone: Thin prep Papanicolaou smear with manual screening 6 5-15 [facility] Work Phone: Absolute lymphocyte counton 11-26-2021 Lymphocytes Auto (Unsp spec) [#/Vol] 1.78 10*3/uL 0.83-4.51 [facility] Work Phone: Basophil percentageon 2021 Basophils/100 WBC (Bld) 1.0 % 0-1 [facility] Work Phone: Chloride [Moles/Vol] 110 mmol/L 98-107 [facility] Work Phone: Eosinophils/100 WBC (Bld) 4.7 % 0-5 [facility] Work Phone: Glucose [Mass/Vol] 91 mg/dL 74-106 [facility] Work Phone: Comment on above: Please note revised GLUCOSE reference range effective 2017. Neutrophils (Bld) [#/Vol] 3.1 10*3/uL 2.0-7.7 [facility] Work Phone: Neutrophils/100 WBC (Bld) 53.4 % 47-70 [facility] Work Phone: Potassium [Moles/Vol] 3.7 mmol/L 3.5-5.1 [facility] Work Phone: Sodium [Moles/Vol] 142 mmol/L 136-145 [facility] Work Phone: WBC (Bld) [#/Vol] 5.7 10*3/uL 4.4-11.0 [facility] Work Phone: Blood erythrocytes count (nu mber/volume)on 11-26-2021 RBC (Bld) [#/Vol] 4.83 10*6/uL 4.6-6.2 [facility] Work Phone: Blood hemoglobin measurement (mass/volume)on 11-26-2021 Hemoglobin (Bld) [Mass/Vol] 14.7 g/dL 13.0-16.5 [facility] Work Phone: Blood lymphocytes/100 leukoc yteson 11-26-2021 Lymphocytes/100 WBC (Bld) 31.1 % 19-41 [facility] Work Phone: Blood monocytes/100 leukocyt eson 11-26-2021 Monocytes/100 WBC (Bld) 9.1 % 0-10 [facility] Work Phone: Blood platelet mean volumeon 11-26-2021 Platelet mean volume (Bld) [Entitic vol] 10.0 fL 6.2-12.0 [facility] Work Phone: Determination of erythrocyte mean corpuscular volume (MCV)on 11-26-2021 MCV (RBC) [Entitic vol] 90.1 fL 80-94 [facility] Work Phone: Hematocrit Auto (Bld) [Volum e fraction]on 11-26-2021 Hematocrit (Bld) [Volume fraction] 43.5 % 40-54 [facility] Work Phone: Laboratory - Chemistry and C hemistry - challengeon 11-26-2021 CO2 [Moles/Vol] 26.0 mmol/L 21.0-32.0 [facility] Work Phone: Natriuretic peptide B (Bld) [Mass/Vol] 30.3 pg/mL 0-100 [facility] Work Phone: Urea nitrogen/Creatinine [Mass ratio] 14.2 mg/mg 10-20 [facility] Work Phone: Laboratory - Hematology and Cell countson 11-26-2021 Erythrocyte distribution width (RBC) [Entitic vol] 41.7 fL 35.1-43.9 [facility] Work Phone: Erythrocyte distribution width (RBC) [Ratio] 12.6 % 11.6-14.6 [facility] Work Phone: Immature granulocytes/100 WBC (Bld) 0.700 % 0.0-0.9 [facility] Work Phone: Comment on above: IG% - Immature Granu locytes (promyelocytes, myelocytes and metamyelocytes) > 1% indicates that a LEFT SHIFT is Present. MCH (RBC) [Entitic mass] 30.4 pg 27.0-32.0 [facility] Work Phone: Nucleated RBC/100 WBC (Bld) [Ratio] 0 % 0-5 [facility] Work Phone: MCHC Auto (RBC) [Mass/Vol]on 11-26-2021 MCHC (RBC) [Mass/Vol] 33.8 g/dL 32-36 [facility] Work Phone: No Panel Informationon 11-26 Troponin I High Sensitivity 16 pg/mL 3.0-78.0 [facility] Work Phone: Comment on above: Please Note: New [place] t Units and Gender Specific Reference Ranges. For more information see Policy Stat Procedure [place] High Sensitivity Troponin (TNIH) and attachments. SARS-CoV-2 Antigen (Rapid) [facility] Work Phone: D-Dimer Quantitative (PE/DVT) 3.29 FEU/ug/m 0.27-0.49 [facility] Work Phone: Comment on above: D-Dimer ELEVATED (>0 .49): Additional studies and clinicalassessments are indicated to conclude diagnosis of:Deep Vein Thrombosis (DVT) or Pulmonary Embolism (PE)CRITICAL VALUE VERIFIED. CALLED TO PEDRO KIM11/26/21 Rosana Jean.RESULTS READ BACK BY SAME . Estimated Creatinine Clearance Calc 59.22 ml/min [facility] Work Phone: Estimated GFR (MDRD) Amer 82 mL/min >60 [facility] Work Phone: Comment on above: GFR Calc Estimated GFR (MDRD) Non-Af Amer 67 mL/min >60 [facility] Work Phone: Comment on above: Non- GFR Calc Platelets bldon 11-26-2021 Platelets (Bld) [#/Vol] 208 10*3/uL 150-450 [facility] Work Phone: Serum or plasma calcium rell urement (mass/volume)on 11-26-2021 Calcium [Mass/Vol] 9.3 mg/dL 8.5-10.1 [facility] Work Phone: Serum or plasma creatinine m easurement (mass/volume)on 11-26-2021 Creatinine [Mass/Vol] 1.13 mg/dL 0.70-1.30 [facility] Work Phone: Comment on above: The validity of the calculated GFR & GFRAA in patients over 70 years has not been determined. Clinical correlation is essential. Serum or plasma urea nitroge n measurement (mass/volume)on 11-26-2021 Urea nitrogen [Mass/Vol] 16 mg/dL 7-18 [facility] Work Phone: Thin prep Papanicolaou smear with manual screeningon 11-26-2021 Thin prep Papanicolaou smear with manual screening 6 5-15 [facility] Work Phone: BMPon 05-04-2021 Anion gap [Moles/Vol] 6 mmol/L Normal 5-16 [facility] Comment on above: Order Comment: Campu s: M Performed By: #### L 500.23076, L500.39601 #### [facility] [address] [place] [address] Calcium [Mass/Vol] 9.6 mg/dL Normal 8.5-10.5 [facility] Comment on above: Order Comment: Campu s: M Result Comment: NOTE NEW NORMAL RANGE DUE TO REAGENT CHANGE Performed By: #### L 500.10115, L500.61003 #### [facility] [address] [place] [id number] Chloride [Moles/Vol] 109 mmol/L High 98-107 [facility] Comment on above: Order Comment: Campu s: M Performed By: #### L 500.95814, L500.91545 #### [facility] [address] [place] [id number] CO2 [Moles/Vol] 26.0 mmol/L Normal 21-32 [facility] Comment on above: Order Comment: Campu s: M Performed By: #### L 500.05020, L500.44232 #### [facility] [address] [place] [address] Creatinine [Mass/Vol] 1.04 mg/dL Normal 0.5-1.4 [facility] Comment on above: Order Comment: Campu s: M Result Comment: NOTE NEW NORMAL RANGE DUE TO REAGENT CHANGE Patients receiving either N-Acetylcysteine (NAC) or Metamizole prior to venipuncture, may have falsely depressed results. Performed By: #### L 500.33128, L5.27897 #### [facility] [address] [place] [address] Glucose [Mass/Vol] 102 mg/dL High 70-100 [facility] Comment on above: Order Comment: Campu s: M Result Comment: 70-1 00- Normal Fasting; 100-125 Impaired Fasting; greater than 126 on more than one result- Diabetes. ADA guidelines. Results may be falsely elevated after the administration of Sulfapyridine. Results may be falsely depressed after the administration of Sulfasalazine. Performed By: #### L 500.53394, L500.90483 #### [facility] [place] [id number] Potassium [Moles/Vol] 4.4 mmol/L Normal 3.5-5.1 [facility] Comment on above: Order Comment: Campu s: M Performed By: #### L 500.19295, L500.09850 #### [facility] [address] [place] [address] Sodium [Moles/Vol] 141 mmol/L Normal 136-145 [facility] Comment on above: Order Comment: Campu s: M Performed By: #### L 500.42113, L500.62103 #### [facility] [address] [place] [address] Urea nitrogen [Mass/Vol] 24 mg/dL Normal 7-26 [facility] Comment on above: Order Comment: Campu s: M Performed By: #### L 500.79293, L500.63176 #### [facility] [address] [place] [address] Urea nitrogen/Creatinine [Mass ratio] 23 mg/mg Normal 15-24 [facility] Comment on above: Order Comment: Campu s: M Performed By: #### L 500.86427, L500.55182 #### [facility] [address] [place] [address] CBC W/DIFFon 05-04-2021 BASO ABS 0.10 K/CU MM Normal 0-0.2 [facility] Comment on above: Order Comment: Campu s: M Performed By: #### L 200.67423 #### [facility] [address] [place] [address] Basophils/100 WBC (Bld) 0.9 % Normal 0-2 [facility] Comment on above: Order Comment: Campu s: M Performed By: #### L 200.13691 #### [facility] [address] [place] [address] EOS ABS 0.20 K/CU MM Normal 0-0.5 [facility] Comment on above: Order Comment: Campu s: M Performed By: #### L 200.30995 #### [facility] [address] [place] [address] Eosinophils/100 WBC (Bld) 1.7 % Normal 0-5 [facility] Comment on above: Order Comment: Campu s: M Performed By: #### L 200.41169 #### [facility] [address] [place] [address] Erythrocyte distribution width (RBC) [Ratio] 13.0 % Normal 11-14.5 [facility] Comment on above: Order Comment: Campu s: M Performed By: #### L 200.41311 #### [facility] [address] [place] [address] Hematocrit (Bld) [Volume fraction] 42.8 % Normal 41.0-53.0 [facility] Comment on above: Order Comment: Campu s: M Performed By: #### L 200.80679 #### [facility] [address] [place] [address] Hemoglobin (Bld) [Mass/Vol] 14.2 g/dL Normal 13.5-17.5 [facility] Comment on above: Order Comment: Campu s: M Performed By: #### L 200.77886 #### [facility] [address] [place] [address] IMMATR GRAN ABS 0.10 K/CU MM Normal Less than 2 [facility] Comment on above: Order Comment: Campu s: M Performed By: #### L 200.09207 #### [facility] [address] [place] [address] IMMATURE GRAN % 0.8 % Normal Less than 2 [facility] Comment on above: Order Comment: Campu s: M Performed By: #### L [id number] #### [facility] [address] [place] [address] LYMPH ABS 1.10 K/CU MM Normal 0.9-4.4 [facility] Comment on above: Order Comment: Campu s: M Performed By: #### L [id number] #### [facility] [address] [place] [address] Lymphocytes/100 WBC (Bld) 11.9 % Low 20-40 [facility] Comment on above: Order Comment: Campu s: M Performed By: #### L [id number] #### [facility] [address] [place] [address] MCHC (RBC) [Mass/Vol] 33.2 g/dL Normal 32.0-36.0 [facility] Comment on above: Order Comment: Campu s: M Performed By: #### L [id number] #### [facility] [address] [place] [address] MCV (RBC) [Entitic vol] 92.8 fL Normal 80.0-99.0 [facility] Comment on above: Order Comment: Campu s: M Performed By: #### L [id number] #### [facility] [address] [place] [address] MONO ABS 0.50 K/CU MM Normal 0.1-1.1 [facility] Comment on above: Order Comment: Campu s: M Performed By: #### L [id number] #### [facility] [address] [place] [address] Monocytes/100 WBC (Bld) 6.0 % Normal 2-10 [facility] Comment on above: Order Comment: Campu s: M Performed By: #### L [id number] #### [facility] [address] [place] [address] NEUTROPHIL ABS 7.00 K/CU MM Normal 2.0-8.3 [facility] Comment on above: Order Comment: Campu s: M Performed By: #### L [id number] #### [facility] [address] [place] [address] Neutrophils/100 WBC (Bld) 78.7 % High 45-75 [facility] Comment on above: Order Comment: Campu s: M Performed By: #### L [id number] #### [facility] [address] [place] [address] Nucleated RBC/100 WBC (Bld) [Ratio] 0.0 % Normal Less than 1 [facility] Comment on above: Order Comment: Campu s: M Performed By: #### L [id number] #### [facility] [address] [place] [address] Platelet mean volume (Bld) [Entitic vol] 9.8 fL Normal 9.4-12.4 [facility] Comment on above: Order Comment: Campu s: M Performed By: #### L [id number] #### [facility] [address] [place] [address] PLT 199 K/CU MM Normal 150-450 [facility] Comment on above: Order Comment: Campu s: M Performed By: #### L [id number] #### [facility] [address] [place] [address] RBC 4.61 M/CU MM Normal 4.50-6.00 [facility] Comment on above: Order Comment: Campu s: M Performed By: #### L [id number] #### [facility] [address] [place] [address] WBC 8.9 K/CUMM Normal 4.5-11.0 [facility] Comment on above: Order Comment: Campu s: M Performed By: #### L [id number] #### [facility] [address] [place] [address] EKGon 05-04-2021 Electrocardiogram Procedure Date and T tesfaye: 05/04/21 1534 Test Reason : REPEAT Blood Pressure : / mmHG Vent. Rate : 072 BPM Atrial Rate : 072 BPM P-R Int : 170 ms QRS Dur : 080 ms QT Int : 394 ms P-R-T Axes : 050 037 048 degrees QTc Int : 431 ms Normal sinus rhythm Normal ECG When compared with ECG of 04-MAY-2021 12:41, No significant change was found Confirmed by PEACE GRIGSBY A. ([id number]) on 05/04/2021 10:25:42 PM Referred By: Parish Henry Confirmed By:Denis GRIGSBY M.D.FACC Frankie DDandT: 05/04/21 1534 TDandT: [facility] [address] MEDICAL REC #: [id number] [place] [address] ADMIT DATE: DISCHARGE DATE: ATTENDING PHY: Yohana Franz,Emergency Physi ELECTROCARDIOGRAM REPORT CLB cc: [facility] PATIENT NAME: [facility] [address] [place] MEDICAL REC #: [id number] [place] [address] ADMIT DATE: DISCHARGE DATE: ATTENDING PHY: Yohana Franz,Emergency Physi ELECTROCARDIOGRAM REPORT Normal [facility] Electrocardiogram Procedure Date and T tesfaye: 05/04/21 1241 Test Reason : STAT Blood Pressure : / mmHG Vent. Rate : 077 BPM Atrial Rate : 077 BPM P-R Int : 148 ms QRS Dur : 088 ms QT Int : 376 ms P-R-T Axes : 030 047 044 degrees QTc Int : 425 ms Normal sinus rhythm Normal ECG No previous ECGs available Confirmed by PEACE GRIGSBY A. ([id number]) on 05/04/2021 10:04:49 PM Referred By: Parish Henry Confirmed By:Denis GRIGSBY M.D.FACC Frankie DDandT: 05/04/21 1241 TDandT: [facility] PATIENT NAME: LIBRADO GUILLEN [facility] [address] MEDICAL REC #: [id number] [place] [address] ADMIT DATE: DISCHARGE DATE: ATTENDING PHY: Yohana Franz,Emergency Physi ELECTROCARDIOGRAM REPORT CLB cc: [facility] PATIENT [facility]: [facility] MEDICAL REC #: [id number] [place] [address] ADMIT DATE: DISCHARGE DATE: ATTENDING PHY: Yohana Franz,Emergency Physi ELECTROCARDIOGRAM REPORT Normal [facility] Susan 05-04-2021 EMERGENCY PHYSICIAN REPORT This is a preliminary report only, as the practitioner review and authentication has not occurred. Normal [facility] ER PHYSICIAN ASSESSMENT RECORDS : FlexChartData Event Time: 05/04/2021 13:15 Status: Signed [facility] Librado Guillen [[id number]] Attending Physician / 1945 Chart (V2b) Chart created at 05/04/2021 13:08 by Parish Henry Chart closed at 05/04/2021 16:28 Entry in Emergency Department at 05/04/2021 12:24, departure at 05/04/2021 16:54 Patient Name: Librado Guillen Record Number: [id number] Date: 05/04/2021 13:08 Entered Department at: 05/04/2021 12:24 Patient Seen at: 05/04/2021 12:37 Historian: Patient PCP: ABILIO OLVERA Chief Complaint:CP/LIGHTHEADED/ NO HX OF COVID Triage Note reviewed and Initial Vital Signs reviewed. Pulse: 77. Respiratory Rate: 18. Blood-pressure: 157/74. Oxygen Saturation: 96% room air; Normal. History of Present Illness: 75-Year-old male sent here for further evaluation. Over the last several months patient have been having what he calls GERD. He gets some pain in the chest somewhat sharp in nature. He has been seen by his doctors the [facility]. He is on PPI. He states that the only thing he knows that really gives him some relief is Pepto-Bismol. This is a symptoms that he has very regularly. Today he was going for outpatient lab at the [facility] and when he got there he started get dizzy and [facility] PATIENT NAME: LIBRADO GUILLEN [address] [facility] 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 He felt weak as if he might pass out. He was having this chest discomfort. They called EMS to bring him here to the emergency department. He was admitted at [place] several weeks ago for his chest pain. He states that he had a stress test done while there and that was negative. No history of CAD. Review of Systems. All other systems reviewed and negative.. Past History, Medications, Allergies, Social History and Family History reviewed in nurses note. Past Medical History:No history of: CAD, NIDDM, High Cholesterol or Hypertension. Crohns disease Medications: Reviewed RN Note. OMEPRAZOLE 40MG BID, BISACODYL 5MG DELAYED-RELEASE TABLET - PO BID, POLYETHYLENE GLYCOL DAILY, PREDNISONE 4MG PO DAILY, FLUTIC INHALER DAILY, ALBUTEROL INHALER PRN, ESCITALOPRAM 5MG PO DAILY, MESALAMINE 1200MG EC 2 TABS ONCE DAILY Allergies: Reviewed RN Note No Known Allergies Social History: Reviewed RN Note. Tobacco: None. Family History: Reviewed RN Note Physical Examination: General: Alert; Patient sitting up in the bed. Looks well and jovial. Neck: Supple Respiratory: No Resp Distress and Normal Breath Sounds Cardio-Vascular: RRR Abdomen: Non-tender and Soft Extremity: No edema Neurological: Alert, Oriented X3 and No Gross Weakness Skin: Warm and Dry Psychological: Mood/Affect Normal CBC W/DIFF, information as of 05/04/2021, 12:33 pm 92.8 [facility] PATIENT NAME: LIBRADO GUILLEN [facility] [address] MEDICAL REC #: [id number] [place] [address] EMERGENCY DEPARTMENT REPORT EMERGENCY DEPARTMENT PHYSICIAN / 14.2 / 8.9 andgt;------andlt; 199 / 42.8 / N:78.7* BASO ABS: 0.10 K/Cu Mm; BASOPHIL %: 0.9 %; EOS ABS: 0.20 K/Cu Mm; EOSINOPHIL %: 1.7 %; IMMATR GRAN ABS: 0.10 K/Cu Mm; IMMATURE GRAN %: 0.8 %; LYMPH %: 11.9 %; LYMPH ABS: 1.10 K/Cu Mm; MCHC: 33.2 Gm/Dl; MONO ABS: 0.50 K/Cu Mm; MONOCYTE %: 6.0 %; MPV: 9.8; NEUTROPHIL ABS: 7.00 K/Cu Mm; NRBC: 0.0 %; RBC: 4.61 M/Cu Mm; RDW: 13.0 BMP, information as of 05/04/2021, 12:38 pm 141 --------+--------+--------an nini; 102* Anion Gap = 6 4.4 BUN/CREA: 23; CALCIUM TOTAL: 9.6 Mg/Dl TROPONIN I, information as of 05/04/2021, 12:33 pm TROPONIN I: Less Than 2.5 Pg/Ml TROPONIN I, information as of 05/04/2021, 1:18 pm TROPONIN I: Less Than 2.5 Pg/Ml Cardiogram: Interpreted by me. Rate: 77 bpm. Rate NormalRhythm Sinus RhythmAxis NormalIntervals NormalQRS NormalST/T Normal Interpretation: Normal. Comparison: No old Cardiogram available for comparison Repeat: Unchanged: Interpretation: Normal sinus rhythm, heart 72, intervals are reviewed, no acute signs of ischemia. No acute change in previous Monitor / Rhythm Strip: NSR Medical Decision Making 75-Year-old gentleman sent in for evaluation as he had episode of lightheadedness and dizziness. He is been having some chest pain this has been going on for several months. He was admitted to another facility several weeks ago he said had cardiac testing that was unremarkable. Right now he feels back to where he is his baseline. Is placed on satellite project site monitor. Has been in sinus rhythm. Cardiac testing here included EKG x2 which has been sinus rhythm without ischemic findings (more content not included)... Normal [facility] GFR ESTon 05-04-2021 IF AMER Greater than 60 Normal [facility] Comment on above: Order Comment: Polo s: M Performed By: #### L 500.58963, L500.19290 #### [facility] [address] [place] [address] IF non-AFR AMER Greater than 60 Normal [facility] Comment on above: Order Comment: Polo s: M Performed By: #### L 500.69553, L500.97671 #### [facility] [address] [place] [address] TROPONIN Ion 05-04-2021 Troponin I.cardiac [Mass/Vol] 2.5 ng/mL Normal 0-54 [facility] Comment on above: Order Comment: Polo s: M Result Comment: NOTE NEW NORMAL RANGE DUE TO REAGENT CHANGE This assay uses different antibodies than our current assay, and assays, even by the same food tester may recognize different regions of the antibody and cannot be used interchangeably. Expect results of this assay to run higher than the previous assay. Performed By: #### L 550.19449 #### [facility] [address] [place] [id number] Troponin I.cardiac [Mass/Vol] 2.5 ng/mL Normal 0-54 [facility] Comment on above: Order Comment: Polo s: M Result Comment: NOTE NEW NORMAL RANGE DUE TO REAGENT CHANGE This assay uses different antibodies than our current assay, and assays, even by the same food tester may recognize different regions of the antibody and cannot be used interchangeably. Expect results of this assay to run higher than the previous assay. Performed By: #### L 550.23541 #### [facility] [address] [place], [place] [id number] MRI SPINE LUMBAR W/O CONTRAS Ton 01-04-2020 MRI SPINE LUMBAR W/O CONTRAST ORIGINAL Lumbar spine MR 01/04/2020 4:28 PM INDICATION: low back pain COMPARISON: No TECHNIQUE: 1. Sagittal T1-weighted images. 2. Sagittal T2-weighted images with and without fat saturation. 3. Axial T1-weighted images. 4. Axial T2-weighted images. FINDINGS: There are 5 lumbar type vertebral bodies for the purposes of this dictation. Alignment is within normal limits. The individual vertebral bodies are intact. There is disc desiccation and disc space narrowing, most prominently at L4-L5 where there are degenerative endplate changes. The tip of the conus is at the L1-L2 level. Air is no abnormal signal within the visualized spinal cord. There is no stenosis. Specific findings by level: L2-L3: There is a mild posterior disc bulge with a small annular tear. L3-L4: There is a mild posterior disc bulge. L4-L5: There is mild spondylosis. There is a small annular tear. L5-S1: There is a mild posterior disc bulge. IMPRESSION: Multilevel degenerative changes, generally mild and most prominent at L4-L5. No stenosis at any level. Interpreted By: Remy Harkins MD Preliminary Report By: Remy Harkins MD Electronically Signed By: Remy Harkins MD Dictated Date: 01/04/2020 4:38:36 PM Prelim Date: 01/04/2020 4:38:36 PM Sign Date: 01/04/2020 4:42:29 PM Ordering Provider:Philippe Whal [facility] ([place]) Rona 12-29-2019 EFRA Mcdowell MICRO - Microbiology PROCEDURE: Urine Culture [*1] SOURCE: Urine, Clean Catch BODY SITE: COLLECTED DATE/TIME: 12/26/2019 15:33 EST RECEIVED DATE/TIME: 12/27/2019 17:05 EST START DATE/TIME: 12/27/2019 17:06 EST FREE TEXT SOURCE: FINAL REPORTS Final Report [] Verified Date/Time/Personnel: 12/29/2019 07:37 EST No growth at 48 hours. PRELIMINARY REPORTS Preliminary Report [] Verified Date/Time/Personnel: 12/28/2019 07:42 EST No growth to date Performing Locations *1: This test was performed at: [facility], [address] [place] [address], [address] , [facility] ([place]) Comment on above: Performed By: #### C GIOVANA RIZVI, ANEU #### [address] [address] #### TROP, LIP, CMP, GFR #### [address] [address] .Auto Diffon 12-26-2019 Ammonia (P) [Mass/Vol] 0.60 10 3/mcL Normal 0.15-1.00 [facility] ([place]) Comment on above: Performed By: #### GIOVANA SILVEIRA, ANEU #### [address] [address] #### TROP, LIP, CMP, GFR, LAC #### [address] [address] Basophils (Bld) [#/Vol] 0.10 10 3/mcL Normal 0.00-0.19 [facility] ([place]) Comment on above: Performed By: #### GIOVANA SILVEIRA, ANEU #### [place] [address] #### TROP, LIP, CMP, GFR, LAC #### [address] [address] Basophils/100 WBC (Bld) 1.3 % Normal 0.0-2.5 [facility] ([place]) Comment on above: Performed By: #### GIOVANA SILVEIRA, ANEU #### [address] [address] #### TROP, LIP, CMP, GFR, LAC #### [address] [address] Eosinophils (Bld) [#/Vol] 0.40 10 3/mcL Normal 0.00-0.40 [facility] ([place]) Comment on above: Performed By: #### C BC, ADIFF, ANEU #### [address] [address] #### TROP, LIP, CMP, GFR, LAC #### [address] [address] Eosinophils/100 WBC (Bld) 5.3 % Normal 0.0-7.0 [facility] ([place]) Comment on above: Performed By: #### C BC, ADIFF, ANEU #### [place] [address] #### TROP, LIP, CMP, GFR, LAC #### [address] [address] Lymphocytes (Bld) [#/Vol] 1.90 10 3/mcL Normal 0.77-3.85 [facility] ([place]) Comment on above: Performed By: #### C BC, ADIFF, ANEU #### [place] [address] #### TROP, LIP, CMP, GFR, LAC #### [address] [address] Lymphocytes/100 WBC (Bld) 26.5 % Normal 10.0-50.0 [facility] ([place]) Comment on above: Performed By: #### C BC, ADIFF, ANEU #### [place] [address] #### TROP, LIP, CMP, GFR, LAC #### [address] [address] Monocytes/100 WBC (Bld) 8.4 % Normal 1.7-13.0 [facility] ([place]) Comment on above: Performed By: #### C BC, ADIFF, ANEU #### [place] [address] #### TROP, LIP, CMP, GFR, LAC #### [address] [address] Neutrophils/100 WBC (Bld) 58.5 % Normal 37.0-80.0 [facility] ([place]) Comment on above: Performed By: #### C GIOVANA RIZVI, ANEU #### [place] [address] [address] #### TROP, LIP, CMP, GFR, LAC #### [address] [address] .GFRon 12-26-2019 GFR Non- 60 ml/min/1.73sqm Normal [facility] ([place]) Comment on above: Result Comment: GFR Population mean for , Non- Americans Ages 20-29 = 116 mL/min/1.73 sq.m. Ages 30-39 = 107 mL/min/1.73 sq.m. Ages 40-49 = 99 mL/min/1.73 sq.m. Ages 50-59 = 93 mL/min/1.73 sq.m. Ages 60-69 = 85 mL/min/1.73 sq.m. Ages 70+ = 75 mL/min/1.73 sq.m. Chronic Kidney Disease: Less than 60 mL/min/1.73 square meters End Stage Renal Disease: Less than 15 mL/min/1.73 square meters Performed By: #### C GIOVANA RIZVI, ANEU #### [place] [address] [address] #### TROP, LIP, CMP, GFR #### [address] [address] GFR 72 ml/min/1.73sqm Normal [facility] ([place]) Comment on above: Result Comment: GFR Population mean for , Non- Americans Ages 20-29 = 116 mL/min/1.73 sq.m. Ages 30-39 = 107 mL/min/1.73 sq.m. Ages 40-49 = 99 mL/min/1.73 sq.m. Ages 50-59 = 93 mL/min/1.73 sq.m. Ages 60-69 = 85 mL/min/1.73 sq.m. Ages 70+ = 75 mL/min/1.73 sq.m. Chronic Kidney Disease: Less than 60 mL/min/1.73 square meters End Stage Renal Disease: Less than 15 mL/min/1.73 square meters Performed By: #### C BC, ADIFF, ANEU #### [place] [address] #### TROP, LIP, CMP, GFR #### [place] [address] .NEUABSon 12-26-2019 Neutrophils (Bld) [#/Vol] 4.20 10 3/mcL Normal 2.85-6.16 [facility] ([place]) Comment on above: Performed By: #### C BC, ADIFF, ANEU #### [place] [address] #### TROP, LIP, CMP, GFR, LAC #### [place] [address] .Urinalysis Microscopic (AO) on 12-26-2019 RBC (U) [#/Vol] None Seen Normal None Seen [facility] ([place]) Comment on above: Performed By: #### C BC, ADIFF, ANEU #### [place] [address] #### TROP, LIP, CMP, GFR #### [place] [address] UA Mucous 2+ /hpf Normal [facility] ([place]) Comment on above: Performed By: #### C BC, ADIFF, ANEU #### [place] [address] #### TROP, LIP, CMP, GFR #### [place] [address] UA Squam Epithelial None Seen Normal None Seen [facility] ([place]) Comment on above: Performed By: #### C BC, ADIFF, ANEU #### [place] [address] #### TROP, LIP, CMP, GFR #### [place] [address] UA WBC 0-5 Abnormal None Seen [facility] ([place]) Comment on above: Performed By: #### C BC, ADIFF, ANEU #### [address] [address] #### TROP, LIP, CMP, GFR #### [address] [address] CBCon 12-26-2019 Erythrocyte distribution width (RBC) [Ratio] 13.1 % Normal 11.5-14.5 [facility] ([place]) Comment on above: Performed By: #### C BC, ADIFF, ANEU #### [place] [address] #### TROP, LIP, CMP, GFR, LAC #### [place] [address] Hematocrit (Bld) [Volume fraction] 43.1 % Normal 42.0-52.0 [facility] ([place]) Comment on above: Performed By: #### C DMITRI, ADIFF, ANEU #### [place] [address] #### TROP, LIP, CMP, GFR, LAC #### [place] [address] Hemoglobin (Bld) [Mass/Vol] 14.8 G/dL Normal 14.0-18.0 [facility] ([place]) Comment on above: Performed By: #### C BC, ADIFF, ANEU #### [place] [address] #### TROP, LIP, CMP, GFR, LAC #### [place] [address] MCH (RBC) [Entitic mass] 31.6 pg High 27.0-31.2 [facility] ([place]) Comment on above: Performed By: #### C BC, ADIFF, ANEU #### [place] [address] #### TROP, LIP, CMP, GFR, LAC #### [address] [address] MCHC (RBC) [Mass/Vol] 34.5 G/dL Normal 31.8-35.4 [facility] ([place]) Comment on above: Performed By: #### C BC, ADIFF, ANEU #### [place] [address] #### TROP, LIP, CMP, GFR, LAC #### [address] [address] MCV (RBC) [Entitic vol] 91.7 fL Normal 80.0-94.0 [facility] ([place]) Comment on above: Performed By: #### C BC, ADIFF, ANEU #### [place] [address] #### TROP, LIP, CMP, GFR, LAC #### [address] [address] Platelet mean volume (Bld) [Entitic vol] 8.5 fL Normal 7.4-10.4 [facility] ([place]) Comment on above: Performed By: #### C BC, ADIFF, ANEU #### [place] [address] #### TROP, LIP, CMP, GFR, LAC #### [address] [address] Platelets (Bld) [#/Vol] 180 10 3/mcL Normal 130-400 [facility] ([place]) Comment on above: Performed By: #### C BC, ADIFF, ANEU #### [place] [address] #### TROP, LIP, CMP, GFR, LAC #### [address] [address] RBC (Bld) [#/Vol] 4.70 10 6/mcL Normal 4.04-6.13 [facility] ([place]) Comment on above: Performed By: #### C BC, ADIFF, ANEU #### [place] [address] #### TROP, LIP, CMP, GFR, LAC #### [address] [address] WBC (Bld) [#/Vol] 7.20 10 3/mcL Normal 4.60-10.80 [facility] ([place]) Comment on above: Performed By: #### C BC, ADIFF, ANEU #### [address] [address] #### TROP, LIP, CMP, GFR, LAC #### [address] [address] CMPon 12-26-2019 Albumin [Mass/Vol] 4.2 G/dL Normal 3.4-4.8 [facility] ([place]) Comment on above: Performed By: #### C BC, ADIFF, ANEU #### [place] [address] #### TROP, LIP, CMP, GFR #### [address] [address] Albumin/Globulin [Mass ratio] 1.4 {ratio} Normal 1.1-2.5 [facility] ([place]) Comment on above: Performed By: #### C BC, ADIFF, ANEU #### [place] [address] #### TROP, LIP, CMP, GFR #### [address] [address] ALP [Catalytic activity/Vol] 103 U/L Normal 40-135 [facility] ([place]) Comment on above: Performed By: #### C BC, ADIFF, ANEU #### [place] [address] #### TROP, LIP, CMP, GFR #### [address] [address] ALT [Catalytic activity/Vol] 70 U/L High 10-35 [facility] ([place]) Comment on above: Performed By: #### C BC, ADIFF, ANEU #### [place] [address] #### TROP, LIP, CMP, GFR #### [address] [address] AST [Catalytic activity/Vol] 38 U/L Normal 10-40 [facility] ([place]) Comment on above: Performed By: #### C BC, ADIFF, ANEU #### [address] [address] #### TROP, LIP, CMP, GFR #### [address] [address] Bili Total 0.7 mg/dL Normal 0.2-1.0 [facility] ([place]) Comment on above: Performed By: #### C BC, ADIFF, ANEU #### [place] [address] #### TROP, LIP, CMP, GFR #### [address] [address] Calcium [Mass/Vol] 9.1 mg/dL Normal 8.4-10.2 [facility] ([place]) Comment on above: Performed By: #### C BC, ADIFF, ANEU #### [place] [address] #### TROP, LIP, CMP, GFR #### [address] [address] Chloride [Moles/Vol] 106 mmol/L Normal 98-107 [facility] ([place]) Comment on above: Performed By: #### C BC, ADIFF, ANEU #### [place] [address] #### TROP, LIP, CMP, GFR #### [address] [address] CO2 [Moles/Vol] 26 mmol/L Normal 23-31 [facility] ([place]) Comment on above: Performed By: #### C BC, ADIFF, ANEU #### [address] [address] #### TROP, LIP, CMP, GFR #### [address] [address] Creatinine [Mass/Vol] 1.20 mg/dL Normal 0.70-1.30 [facility] ([place]) Comment on above: Performed By: #### C BC, ADIFF, ANEU #### [address] [place] [address] #### TROP, LIP, CMP, GFR #### [address] [address] Electrolyte Balance 13.0 mEq/L Normal [facility] ([place]) Comment on above: Performed By: #### C BC, ADIFF, ANEU #### [address] [address] #### TROP, LIP, CMP, GFR #### [address] [address] Globulin (S) [Mass/Vol] 3.1 G/dL Normal [facility] ([place]) Comment on above: Performed By: #### C BC, ADIFF, ANEU #### [place] [address] #### TROP, LIP, CMP, GFR #### [address] [address] Glucose [Mass/Vol] 105 mg/dL Normal 83-110 [facility] ([place]) Comment on above: Performed By: #### C BC, ADIFF, ANEU #### [address] [address] #### TROP, LIP, CMP, GFR #### [address] [address] Potassium [Moles/Vol] 4.2 mmol/L Normal 3.5-5.1 [facility] ([place]) Comment on above: Performed By: #### C BC, ADIFF, ANEU #### [place] [id number] #### TROP, LIP, CMP, GFR #### [address] [address] Protein [Mass/Vol] 7.3 G/dL Normal 6.4-8.2 [facility] ([place]) Comment on above: Performed By: #### C BC, ADIFF, ANEU #### [address] [address] #### TROP, LIP, CMP, GFR #### [address] [address] Sodium [Moles/Vol] 145 mmol/L Normal 136-145 [facility] ([place]) Comment on above: Performed By: #### C BC, ADIFF, ANEU #### [address] [address] #### TROP, LIP, CMP, GFR #### [address] [address] Urea nitrogen [Mass/Vol] 19 mg/dL High 7-18 [facility] ([place]) Comment on above: Performed By: #### C BC, ADIFF, ANEU #### [address] [address] #### TROP, LIP, CMP, GFR #### [address] [address] Urea nitrogen/Creatinine [Mass ratio] 16 ratio Normal 7-27 [facility] ([place]) Comment on above: Performed By: #### C BC, ADIFF, ANEU #### [address] [address] #### TROP, LIP, CMP, GFR #### [address] [address] [address] ABD/PELVIS W/ IV CONTRAST ONLYon 12-26-2019 CT ABD/PELVIS W/ IV CONTRAST ONLY ORIGINAL CT ABD/PELVIS W/ IV CONTRAST ONLY CLINICAL STATEMENT: painhistory of Crohn's. Generalized abdominal pain. COMPARISON: None TECHNIQUE: Axial images were obtained from the lung bases through the pubic symphysis after the administration of IV contrast. Coronal reformatted images were generated from the axial dataset. This exam was performed according to our departmental dose optimization program, and includes the following measures where applicable: automated exposure control, adjustment of the mAs and/or kVp according to patient size and/or exam, and an iterative reconstruction algorithm. Findings: the included lung bases are clear. The heart is normal in size. The spleen, adrenal glands, kidneys, and pancreas are within normal limits. There are post surgical changes of a cholecystectomy. The liver is decreased in attenuation with normal size and contour, consistent with hepatic steatosis. There is an indeterminant 1 cm RIGHT hepatic lobe hypodensity (image 66 of series 3). Multiple bladder diverticula are seen. There is asymmetric thickening of the anterior RIGHT lateral urinary bladder fundal wall. The small bowel is nondilated without wall thickening. The large bowel is nondilated without wall thickening. The appendix is normal. No free intraperitoneal fluid or air is identified. The aorta is normal in caliber. There are atherosclerotic calcifications of the aorta. There is no lymphadenopathy. There is mild haziness of the root of the small bowel mesentery. The prostate is unremarkable. Phleboliths are seen within the pelvis. There is no visible fracture or aggressive osseous lesion. There are multilevel degenerative changes of the visualized spine. IMPRESSION: 1. No acute finding. 2. Asymmetric wall thickening of the RIGHT anterolateral urinary bladder wall superiorly. Correlation with urinalysis and cystoscopy is recommended. 3. Indeterminate RIGHT hepatic lobe hypodensity. Further evaluation with nonemergent MRI of the liver is recommended. 4. Haziness within the root of the small bowel mesentery may represent panniculitis. Continued surveillance is recommended to evaluate for underlying lymphoproliferative disease. I have personally reviewed the images of this examination and agree with the resident's findings and interpretation. Interpreted By: Latanya Jackson MD Preliminary Report By: Jason Beauchamp MD Electronically Signed By: Latanya Jackson MD Dictated Date: 12/26/2019 3:09:17 PM Prelim Date: 12/26/2019 3:14:14 PM Sign Date: 12/26/2019 4:29:03 PM Ordering Provider:Paddy Wahl [facility] ([place]) Perkins 12-26-2019 Lactic Acid Lvl 1.1 mmol/L Normal 0.4-2.0 [facility] ([place]) Comment on above: Performed By: #### C BCGIOVANA, ANEU #### [address] [address] #### TROP, LIP, CMP, GFR #### [address] [address] Lactic Acid Lvl 2.4 mmol/L High 0.4-2.0 [facility] ([place]) Comment on above: Performed By: #### C BC, ADIFF, ANEU #### [address] [address] #### TROP, LIP, CMP, GFR #### [address] [address] LIPon 12-26-2019 Lipase Level 81 U/L Normal 73-393 [facility] ([place]) Comment on above: Performed By: #### C BC, ADIFF, ANEU #### [address] [address] #### TROP, LIP, CMP, GFR #### [place] [address] TROPon 12-26-2019 Troponin I.cardiac [Mass/Vol] 0.027 ng/mL Normal 0.000-0.04 0 [facility] ([place]) Comment on above: Result Comment: Trop onin I reference range: 0.00-0.040 ng/mL Negative and non-diagnostic. >0.040 ng/mL Consistent with cardiac damage, increased clinical risk and possibility of myocardial infarction. Serial measurements, a rise & fall in test results, clinical history, appropriate symptoms and/or ECG changes may help assess possibility of MO. *Other non-acute coronary syndrome conditions such as CHF, myocarditis, pulmonary emboli, sepsis and cardiac surgery could result in myocardial damage and increased troponin levels. Performed By: #### C BC, ADIFF, ANEU #### [place] [address] #### TROP, LIP, CMP, GFR #### [place] [address] UA 12-26-2019 Color (U) Dark yellow Normal [facility] ([place]) Comment on above: Performed By: #### C BC, ADIFF, ANEU #### [address] [address] #### TROP, LIP, CMP, GFR #### [place] [address] Glucose (U) [Mass/Vol] Negative Normal Negative [facility] ([place]) Comment on above: Performed By: #### C BC, ADIFF, ANEU #### [place] [id number] #### TROP, LIP, CMP, GFR #### [place] [address] Ketones Ql (U) >=160 Abnormal Negative [facility] ([place]) Comment on above: Performed By: #### C BC, ADIFF, ANEU #### [address] [address] #### TROP, LIP, CMP, GFR #### [place] [address] UA Appear Slightly Cloudy Abnormal Clear [facility] ([place]) Comment on above: Performed By: #### C BC, ADIFF, ANEU #### [place] [address] #### TROP, LIP, CMP, GFR #### [place] [address] UA Blood Trace Abnormal Negative [facility] ([place]) Comment on above: Performed By: #### C BC, ADIFF, ANEU #### [place] [address] #### TROP, LIP, CMP, GFR #### [place] [address] UA Leuk Est Negative Normal Negative [facility] ([place]) Comment on above: Performed By: #### C BC, ADIFF, ANEU #### [place] [address] #### TROP, LIP, CMP, GFR #### [place] [address] UA Nitrite Negative Normal Negative [facility] ([place]) Comment on above: Performed By: #### C BC, ADIFF, ANEU #### [place] [address] #### TROP, LIP, CMP, GFR #### [place] [address] UA pH 7.5 Normal 5.0 - 8.0 [facility] ([place]) Comment on above: Performed By: #### C BC, ADIFF, ANEU #### [place] [address] #### TROP, LIP, CMP, GFR #### [address] [address] UA Protein Negative Normal Negative [facility] ([place]) Comment on above: Performed By: #### C BC, ADIFF, ANEU #### [address] [address] #### TROP, LIP, CMP, GFR #### [place] [address] UA Spec Grav 1.015 Normal 1.015-1.02 5 [facility] ([place]) Comment on above: Performed By: #### C BC, ADIFF, ANEU #### [place] [address] #### TROP, LIP, CMP, GFR #### [place] [address] UA Specimen Type Clean Catch Normal [facility] ([place]) Comment on above: Performed By: #### C BC, ADIFF, ANEU #### [place] [address] #### TROP, LIP, CMP, GFR #### [place] [address] UA Urobilinogen 0.2 E.U./dL Normal 0.2-1.0 [facility] ([place]) Comment on above: Performed By: #### C BC, ADIFF, ANEU #### [place] [address] #### TROP, LIP, CMP, GFR #### [place] [address] Urobilinogen Qn (U) Small Abnormal Negative [facility] ([place]) Comment on above: Performed By: #### C BC, ADIFF, ANEU #### [place] [address] #### TROP, LIP, CMP, GFR #### [place] [address] XR CHEST 1 VIEWon 12-26-2019 XR CHEST 1 VIEW ORIGINAL XR CHEST 1 VIEW CLINICAL STATEMENT: chest pain. COMPARISON: None FINDINGS: Exam is limited by patient body habitus. The heart is enlarged. There are bibasilar hypoventilatory changes. The lungs are otherwise predominantly clear. No overt central vascular congestion, large pleural effusion or pneumothorax. No acute osseous abnormality. IMPRESSION: Bibasilar atelectasis. Interpreted By: Latanya Jackson MD Preliminary Report By: Latanya Jackson MD Electronically Signed By: Latanya Jackson MD Dictated Date: 12/26/2019 3:11:20 PM Prelim Date: 12/26/2019 3:11:20 PM Sign Date: 12/26/2019 3:12:24 PM Ordering Provider:Paddy Wahl [facility] ([place]) .Auto Diffon 12-16-2019 Ammonia (P) [Mass/Vol] 0.90 10 3/mcL Normal 0.15-1.00 [facility] ([place]) Comment on above: Performed By: #### C GIOVANA RIZVI, ANEU #### [place] [address] #### TROP, LIP, CMP, GFR #### [address] [address] Basophils (Bld) [#/Vol] 0.20 10 3/mcL High 0.00-0.19 [facility] ([place]) Comment on above: Performed By: #### C GIOVANA RIZVI, ANEU #### [place] [address] #### TROP, LIP, CMP, GFR #### [address] [address] Basophils/100 WBC (Bld) 2.1 % Normal 0.0-2.5 [facility] ([place]) Comment on above: Performed By: #### C BC ADANDREW, ANEU #### [place] [address] #### TROP, LIP, CMP, GFR #### [address] [address] Eosinophils (Bld) [#/Vol] 0.30 10 3/mcL Normal 0.00-0.40 [facility] ([place]) Comment on above: Performed By: #### C BC, ADIFF, ANEU #### [address] [address] #### TROP, LIP, CMP, GFR #### [address] [address] Eosinophils/100 WBC (Bld) 3.0 % Normal 0.0-7.0 [facility] ([place]) Comment on above: Performed By: #### C BC, ADIFF, ANEU #### [place] [address] #### TROP, LIP, CMP, GFR #### [address] [address] Lymphocytes (Bld) [#/Vol] 2.20 10 3/mcL Normal 0.77-3.85 [facility] ([place]) Comment on above: Performed By: #### C BC, ADIFF, ANEU #### [place] [address] #### TROP, LIP, CMP, GFR #### [address] [address] Lymphocytes/100 WBC (Bld) 21.5 % Normal 10.0-50.0 [facility] ([place]) Comment on above: Performed By: #### C BC, ADIFF, ANEU #### [place] [address] #### TROP, LIP, CMP, GFR #### [address] [address] Monocytes/100 WBC (Bld) 8.4 % Normal 1.7-13.0 [facility] ([place]) Comment on above: Performed By: #### C BC, ADIFF, ANEU #### [place] [address] #### TROP, LIP, CMP, GFR #### [address] [address] Neutrophils/100 WBC (Bld) 65.0 % Normal 37.0-80.0 [facility] ([place]) Comment on above: Performed By: #### C BC, ADIFF, ANEU #### [address] [address] #### TROP, LIP, CMP, GFR #### [address] [address] .GFRon 12-16-2019 GFR 78 ml/min/1.73sqm Normal [facility] ([place]) Comment on above: Result Comment: GFR Population mean for , Non- Americans Ages 20-29 = 116 mL/min/1.73 sq.m. Ages 30-39 = 107 mL/min/1.73 sq.m. Ages 40-49 = 99 mL/min/1.73 sq.m. Ages 50-59 = 93 mL/min/1.73 sq.m. Ages 60-69 = 85 mL/min/1.73 sq.m. Ages 70+ = 75 mL/min/1.73 sq.m. Chronic Kidney Disease: Less than 60 mL/min/1.73 square meters End Stage Renal Disease: Less than 15 mL/min/1.73 square meters Performed By: #### C BC, ADIFF, ANEU #### [address] [address] #### TROP, LIP, CMP, GFR #### [address] [address] GFR Non- 64 ml/min/1.73sqm Normal [facility] ([place]) Comment on above: Result Comment: GFR Population mean for , Non- Americans Ages 20-29 = 116 mL/min/1.73 sq.m. Ages 30-39 = 107 mL/min/1.73 sq.m. Ages 40-49 = 99 mL/min/1.73 sq.m. Ages 50-59 = 93 mL/min/1.73 sq.m. Ages 60-69 = 85 mL/min/1.73 sq.m. Ages 70+ = 75 mL/min/1.73 sq.m. Chronic Kidney Disease: Less than 60 mL/min/1.73 square meters End Stage Renal Disease: Less than 15 mL/min/1.73 square meters Performed By: #### C BC, ADIFF, ANEU #### [place] [address] #### TROP, LIP, CMP, GFR #### [address] [address] .NEUABSon 12-16-2019 Neutrophils (Bld) [#/Vol] 6.60 10 3/mcL High 2.85-6.16 [facility] ([place]) Comment on above: Performed By: #### C GIOVANA RIZVI, ANEU #### [place] [address] #### TROP, LIP, CMP, GFR #### [address] [address] CBCon 12-16-2019 Erythrocyte distribution width (RBC) [Ratio] 13.6 % Normal 11.5-14.5 [facility] ([place]) Comment on above: Performed By: #### C GIOVANA RIZVI, ANEU #### [place] [address] #### TROP, LIP, CMP, GFR #### [place] [address] Hematocrit (Bld) [Volume fraction] 42.7 % Normal 42.0-52.0 [facility] ([place]) Comment on above: Performed By: #### C GIOVANA RIZVI, ANEU #### [place] [address] #### TROP, LIP, CMP, GFR #### [place] [address] Hemoglobin (Bld) [Mass/Vol] 14.3 G/dL Normal 14.0-18.0 [facility] ([place]) Comment on above: Performed By: #### C GIOVANA RIZVI, ANEU #### [place] [address] #### TROP, LIP, CMP, GFR #### [place] [address] MCH (RBC) [Entitic mass] 31.1 pg Normal 27.0-31.2 [facility] ([place]) Comment on above: Performed By: #### C GIOVANA RIZVI, ANEU #### [address] [address] #### TROP, LIP, CMP, GFR #### [address] [address] MCHC (RBC) [Mass/Vol] 33.5 G/dL Normal 31.8-35.4 [facility] ([place]) Comment on above: Performed By: #### C ABDIFATAH RIZVIIFF, ANEU #### [place] [address] #### TROP, LIP, CMP, GFR #### [address] [address] MCV (RBC) [Entitic vol] 92.7 fL Normal 80.0-94.0 [facility] ([place]) Comment on above: Performed By: #### GIOVANA SILVEIRA, ANEU #### [place] [address] #### TROP, LIP, CMP, GFR #### [place] [address] Platelet mean volume (Bld) [Entitic vol] 9.5 fL Normal 7.4-10.4 [facility] ([place]) Comment on above: Performed By: #### GIOVANA SILVEIRA, ANEU #### [place] [address] #### TROP, LIP, CMP, GFR #### [place] [id number] Platelets (Bld) [#/Vol] 263 10 3/mcL Normal 130-400 [facility] ([place]) Comment on above: Performed By: #### C DMITRI, ADIFF, ANEU #### [place] [address] #### TROP, LIP, CMP, GFR #### [place] [id number] RBC (Bld) [#/Vol] 4.60 10 6/mcL Normal 4.04-6.13 [facility] ([place]) Comment on above: Performed By: #### C BC, ADIFF, ANEU #### [address] [address] #### TROP, LIP, CMP, GFR #### [address] [address] WBC (Bld) [#/Vol] 10.20 10 3/mcL Normal 4.60-10.80 [facility] ([place]) Comment on above: Performed By: #### C BC, ADIFF, ANEU #### [place] [address] #### TROP, LIP, CMP, GFR #### [address] [address] CMPon 12-16-2019 Albumin [Mass/Vol] 3.9 G/dL Normal 3.4-4.8 [facility] ([place]) Comment on above: Performed By: #### C BC, ADIFF, ANEU #### [place] [address] #### TROP, LIP, CMP, GFR #### [address] [address] Albumin/Globulin [Mass ratio] 1.3 {ratio} Normal 1.1-2.5 [facility] ([place]) Comment on above: Performed By: #### C BC, ADIFF, ANEU #### [place] [address] #### TROP, LIP, CMP, GFR #### [address] [address] ALP [Catalytic activity/Vol] 84 U/L Normal 40-135 [facility] ([place]) Comment on above: Performed By: #### C BC, ADIFF, ANEU #### [place] [address] #### TROP, LIP, CMP, GFR #### [address] [address] ALT [Catalytic activity/Vol] 59 U/L High 10-35 [facility] ([place]) Comment on above: Performed By: #### C BC, ADIFF, ANEU #### [address] [address] #### TROP, LIP, CMP, GFR #### [address] [address] AST [Catalytic activity/Vol] 25 U/L Normal 10-40 [facility] ([place]) Comment on above: Performed By: #### C BC, ADIFF, ANEU #### [address] [address] #### TROP, LIP, CMP, GFR #### [address] [address] Bili Total 0.4 mg/dL Normal 0.2-1.0 [facility] ([place]) Comment on above: Performed By: #### C BC, ADIFF, ANEU #### [address] [address] #### TROP, LIP, CMP, GFR #### [address] [address] Calcium [Mass/Vol] 9.1 mg/dL Normal 8.4-10.2 [facility] ([place]) Comment on above: Performed By: #### C BC, ADIFF, ANEU #### [address] [address] #### TROP, LIP, CMP, GFR #### [address] [address] Chloride [Moles/Vol] 106 mmol/L Normal 98-107 [facility] ([place]) Comment on above: Performed By: #### C BC, ADIFF, ANEU #### [address] [address] #### TROP, LIP, CMP, GFR #### [address] [address] CO2 [Moles/Vol] 31 mmol/L Normal 23-31 [facility] ([place]) Comment on above: Performed By: #### C BC, ADIFF, ANEU #### [address] [address] #### TROP, LIP, CMP, GFR #### [address] [address] Creatinine [Mass/Vol] 1.12 mg/dL Normal 0.70-1.30 [facility] ([place]) Comment on above: Performed By: #### C BC, ADIFF, ANEU #### [address] [address] #### TROP, LIP, CMP, GFR #### [address] [address] Electrolyte Balance 7.0 mEq/L Normal [facility] ([place]) Comment on above: Performed By: #### C BC, ADIFF, ANEU #### [address] [address] #### TROP, LIP, CMP, GFR #### [address] [address] Globulin (S) [Mass/Vol] 3.0 G/dL Normal [facility] ([place]) Comment on above: Performed By: #### C BC, ADIFF, ANEU #### [address] [address] #### TROP, LIP, CMP, GFR #### [address] [address] Glucose [Mass/Vol] 113 mg/dL High 83-110 [facility] ([place]) Comment on above: Performed By: #### C BC, ADIFF, ANEU #### [address] [address] #### TROP, LIP, CMP, GFR #### [address] [address] Potassium [Moles/Vol] 4.8 mmol/L Normal 3.5-5.1 [facility] ([place]) Comment on above: Performed By: #### C BC, ADIFF, ANEU #### [address] [address] #### TROP, LIP, CMP, GFR #### [address] [address] Protein [Mass/Vol] 6.9 G/dL Normal 6.4-8.2 [facility] ([place]) Comment on above: Performed By: #### C BC, ADIFF, ANEU #### [address] [address] #### TROP, LIP, CMP, GFR #### [address] [address] Sodium [Moles/Vol] 144 mmol/L Normal 136-145 [facility] ([place]) Comment on above: Performed By: #### C BC, ADIFF, ANEU #### [address] [address] #### TROP, LIP, CMP, GFR #### [address] [address] Urea nitrogen [Mass/Vol] 16 mg/dL Normal 7-18 [facility] ([place]) Comment on above: Performed By: #### C BC, ADIFF, ANEU #### [place] [address] #### TROP, LIP, CMP, GFR #### [address] [address] Urea nitrogen/Creatinine [Mass ratio] 14 ratio Normal 7-27 [facility] ([place]) Comment on above: Performed By: #### C BC, ADIFF, ANEU #### [address] [address] #### TROP, LIP, CMP, GFR #### [address] [address] LIPon 12-16-2019 Lipase Level 76 U/L Normal 73-393 [facility] ([place]) Comment on above: Performed By: #### C BC, ADIFF, ANEU #### [address] [address] #### TROP, LIP, CMP, GFR #### [address] [address] TROPon 12-16-2019 Troponin I.cardiac [Mass/Vol] ng/mL Normal 0.000-0.04 0 [facility] ([place]) Comment on above: Result Comment: Trop onin I reference range: 0.00-0.040 ng/mL Negative and non-diagnostic. >0.040 ng/mL Consistent with cardiac damage, increased clinical risk and possibility of myocardial infarction. Serial measurements, a rise & fall in test results, clinical history, appropriate symptoms and/or ECG changes may help assess possibility of MO. *Other non-acute coronary syndrome conditions such as CHF, myocarditis, pulmonary emboli, sepsis and cardiac surgery could result in myocardial damage and increased troponin levels. Performed By: #### C BC, ADIFF, ANEU #### [facility] [address] [place], [place] [address] #### TROP, LIP, CMP, GFR #### [address] [address] CNOVon 11-05-2018 CNOV Office Visit ([id number]) ----LIBRADO GUILLEN ([id number]) 1945 [facility] Izaszuevml74/12/18 9:45 AM TONIO TERAN JR [id number] During your visit today, we recorded the following information about you: Respiration Weight Height 14/minute 116.1 kg 1.778 Moy Mckinney Tech 11/13/2018 3:30 PM SignedREVIEW OF SYSTEMS:GENERAL: Well developed, well nourished. No acute distressPAIN: Negative for pain, history of chronic pain or current treatment forchronic pain conditionsCARDIOVASCULAR: Negative for chest pain, leg swelling and palpations.MSK: Negative for joint pain, swelling, back pain, muscle pain.SKIN: Negative for lesions, rash, itching, metal sensitivityNEURO: Negative for seizure, trauma, numbness/tingling of extremities.ENDOCRINE: Negative for Diabetes Type 1 and Type 2HEMATOLOGY: Negative for excessive bleeding, clots, bleeding disorders.Tonio Teran MD 11/13/2018 3:30 PM SignedPatient presents with:Surgical Followup: Right CTSPROCEDURERight carpal tunnel releaseHISTORY OF PRESENT ILLNESSLibrado Guillen presents for post operative follow up 2 weeks from surgery.Current Concerns: nonePain control:well controlledCurrently taking pain medication:NoFever, chills or other signs of infection: noPHYSICAL EXAMINATIONno erythema, cellulitis or drainageIncision lines are intact, no drainage noted. Scars are maturing nicely andSutures removed without difficulty. Patient tolerated procedure wellROM: not testedSensation:Normal sensationBrisk cap refillIMAGINGnoneASSESSMENT AND PLAN:Carpal tunnel syndrome of right wrist (primary encounter diagnosis)S/p carpal tunnel releaseExam shows routine improvement of the right wrist following right carpal tunnelrelease. Follow restrictions for next 1 week. Advised patient that sorenesswill be there over the next few months. Return to see me as needed.Pt education provided on lifting restrictionsPatient was instructed to call the office with any questions and/or concerns -Scribe Attestation Statement:Scribe Statement: I, James Mittal, am scribing for, and in the presence ofAngela Akbar: James Mittal C linician Attestation Statement: The information in this document, created bythe medical management trainer for me, accurately reflects the services I personallyperformed and the decisions made by me. I have reviewed and approved thisdocument for accuracy.JAVIER Akbarlease note: This note has been produced using speech recognition software andmay contain errors related to that system including grammar, punctuation,spelling, gender and words and phrases that may be inappropriate.Referring Provider: TONIO TERAN JR [[id number]]Allergies As of Date: 11/05/2018(No Known Allergies)Date Reviewed: 11/05/2018Reviewed by: Moy Carreon (Tech) - Fully AssessedReason for Visit: Surgical Followup [104] Cmt: Right CTSPrimary Visit Diagnosis:Carpal tunnel syndrome of right wrist [G56.01] Other Visit Diagnosis:S/P carpal tunnel release [Z98.890]Prescriptions as of 11/05/2018 Sig: ACETAMINOPHEN 120 MG-CODEINE * Take 5 mL by mouth every 8 ho* ALBUTEROL SULFATE 2.5 MG/3 ML* Use 3 mL via nebulizer every * ALBUTEROL INHALATION Inhale 2 Puffs as instructed * BUDESONIDE 0.5 MG/2 ML SUSPEN* Use 2 mL via nebulizer twice * FLUTICASONE 200 MCG-VILANTERO* Inhale 1 Inhalation as instru* GABAPENTIN 300 MG CAPSULE Take 300 mg by mouth three ti* MELOXICAM 15 MG TABLET Take 1 tablet by mouth daily * OMEPRAZOLE 20 MG CAPSULE,LIDA* Take 40 mg by mouth twice chelsey* PREDNISONE 10 MG TABLET Take 1 tablet by mouth once d* Patient taking differently: Take 5 mg by mouth once daily* RANITIDINE 300 MG TABLET Take 1 tablet by mouth daily * Patient taking differently: Take 300 mg by mouth as neede* * ZYRTEC 10 MG TABLET NEEDEDProblem List As Of Date 11/05/2018 Noted Resolved Asthma, severe persistent [J45.50] INVALID FOR*05/09/2016 Asthma [J45.909] INVALID FOR*05/09/2016 Uncomplicated severe persistent asthma [J45.50] INVALID FOR* Dyspnea on exertion [R06.09] INVALID FOR* GERD (gastroesophageal reflux disease) [K21.9] INVALID FOR* Asthma [J45.909] INVALID FOR* Laceration of right forearm with tendon involve*INVALID FOR* Dog bite of left forearm [S51.852A, W54.0XXA] INVALID FOR* Forearm laceration involving tendon, right, ini*INVALID FOR* More... 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 S/P carpal tunnel release [Z98.890] INVALID FOR*Disposition: Return if symptoms worsen or fail to improve.Follow-up and Disposition History RecordedEncounter Number: [id number] Status:Closed by TONIO TERAN MD on 11/13/18 [facility] PROGRESSon 11-05-2018 Protein mass conc HNO ID: [id number] thor: Tonio Teran Jr.Service: (none)Author Type: PhysicianType: Progress NotesFiled: 11/13/2018 3:30 PMNote Text:Patient presents with:Surgical Followup: Right CTSPROCEDURERight carpal tunnel releaseHISTORY OF PRESENT ILLNESSLibrado Guillen presents for post operative follow up 2 weeks fromsurgery.Current Concerns: nonePain control:well controlledCurrently taking pain medication:NoFever, chills or other signs of infection: noPHYSICAL EXAMINATIONno erythema, cellulitis or drainageIncision lines are intact, no drainage noted. Scars are maturing nicelyand Sutures removed without difficulty. Patient tolerated procedure wellROM: not testedSensation:Normal sensationBrisk cap refillIMAGINGnoneASSESSMENT AND PLAN:Carpal tunnel syndrome of right wrist (primary encounter diagnosis)S/p carpal tunnel releaseExam shows routine improvement of the right wrist following right carpaltunnel release. Follow restrictions for next 1 week. Advised patient thatsoreness will be there over the next few months. Return to see me asneeded.Pt education provided on lifting restrictionsPatient was instructed to call the office with any questions and/orconcerns -------Scribe Attestation Statement:Scribe Statement: I, James Mittal, am scribing for, and in the presence ofLetty Akbarribe: James Mittal C linician Attestation Statement: The information in this document, createdby the medical management trainer for me, accurately reflects the services Ipersonally performed and the decisions made by me. I have reviewed andapproved this document for accuracy.Rolando Akbar note: This note has been produced using speech recognition softwareand may contain errors related to that system including grammar,punctuation, spelling, gender and words and phrases that may beinappropriate. [facility] Protein mass conc HNO ID: [id number] thor: Wendi (Tech) Gerry Granger: (none)Author Type: Monitor TechType: Progress NotesFiled: 11/13/2018 3:30 PMNote Text:REVIEW OF SYSTEMS:GENERAL: Well developed, well nourished. No acute distressPAIN: Negative for pain, history of chronic pain or current treatment forchronic pain conditionsCARDIOVASCULAR: Negative for chest pain, leg swelling and palpations.MSK: Negative for joint pain, swelling, back pain, muscle pain.SKIN: Negative for lesions, rash, itching, metal sensitivityNEURO: Negative for seizure, trauma, numbness/tingling of extremities.ENDOCRINE: Negative for Diabetes Type 1 and Type 2HEMATOLOGY: Negative for excessive bleeding, clots, bleeding disorders. [facility] ANES Asha 10-23-2018 ANES POST HNO ID: [id number] thor: Alexx OronaoService: AnesthesiologyAuthor Type: PhysicianType: Anesthesia PostOpFiled: 10/23/2018 3:01 PMNote Text:POST ANESTHESIA EVALUATION NOTESERVICE DATE: 10/23/2018SERVICE TIME: 3:01 PMDOB: 1945Vitals: 10/23/1814Temp: 36.2 ?C (97.2 ?F) 36.4 ?C (97.5 ?F) 10/23/1814P: 176/88 145/78 126/74 10/23/1814Pulse: 88 74 91 10/23/1814Resp: 16 16 20 10/23/1814SpO2: 97% 95% 95%Validated Vital Signs: YesPOST ANES STATUS: No apparent anesthetic complications. The patient isappropriately hydrated with stable respiratory and cardiovascular status.Patient has safe and adequate airway control. The patient has appropriatepain relief and no significant post operative nausea or vomiting. Thepatient has achieved baseline mental status.Intra-Operative Events: No Significant Anesthesia EventsFurther assessment by Anesthesia Service: NoneOther Remarks:SIGNATURE: Alexx Davis MD PATIENT NAME: Librado GuillenDATE: October 23, 2018 : 3:01 PM PAGER/CONTACT #: [facility] ANES PREOPon 10-23-2018 ANES PREOP HNO ID: [id number] thor: Alexx OronaoService: AnesthesiologyAuthor Type: PhysicianType: Anesthesia PreOpFiled: 10/23/2018 1:35 PMNote Text: ANESTHESIOLOGY DAY OF SURGERY NOTESERVICE DATE: 10/23/2018SERVICE TIME: 1:34 PMDOB: 1945Procedure(s) (LRB):DECOMPRESSION NERVE MEDIAN CARPAL TUNNEL (Right)Surgeon(s):Tonio Reyes (Shaun) ShantelEstimated body mass index is 36.73 kg/m? as calculated from the following: Height as of this encounter: 177.8 cm (5' 10). Weight as of this encounter: 116.1 kg (256 lb).Most recent hematocrit and potassium results:Hematocrit 38.8 07/19/2016Potassium 4.2 07/19/2016ANES DOS/PREOP NOTE:Vitals: 2BP: 176/88Pulse: 88Resp: 16Temp: 36.2 ?C (97.2 ?F)SpO2: 97%Weight: 116.1 kg (256 lb)Height: 177.8 cm (5' 10)ACTIVE PROBLEM LISTUncomplicated Severe Persistent AsthmaDyspnea On ExertionGerd (Gastroesophageal Reflux Disease)AsthmaLaceration of Right Forearm With Tendon InvolvementDog Bite of Left ForearmForearm Laceration Involving Tendon, Right, Initial EncounterObesity, Class II, Bmi 35-39.9Right Median Nerve NeuropathyExtensor Tenosynovitis of Right WristDog Bite of Right ForearmCarpal Tunnel Syndrome of Right WristPAST MEDICAL HISTORYDiagnosis Date- Asthma Asthma- Diaphragmatic hernia without mention of obstruction or gangrene Hiatal hernia- Esophageal cancer (HCC)- Esophageal reflux Gastroesophageal reflux- Unspecified sinusitis (chronic) Chronic sinusitis- Unspecified sleep apnea Sleep apnea - uses cpap at nightPAST SURGICAL HISTORYProcedure Laterality Date- PAST SURGICAL HISTORY OF 1973 gallbladder removed- PAST SURGICAL HISTORY OF 1974 right rib removed- PAST SURGICAL HISTORY OF esophageal burnings- PAST SURGICAL HISTORY OF bronchotheroplasty- PAST SURGICAL HISTORY OF Right 05/23/2018 R Forearm Laceration Involving TendonFAMILY HISTORYProblem Relation Age of Onset- Heart Mother CHF- Cancer Father lung CASocial History:Social HistorySubstance Use Topics- Smoking status: Former Smoker Packs/day: 0.50 Years: 15.00 Types: Cigarettes Quit date: 12/06/1993- Smokeless tobacco: Never Used- Alcohol use Yes Comment: SOCIAL DRINKER 1-2 DRINKS PER MONTHNo current facility-administered medications on file prior to encounter.Current Outpatient Prescriptions on File Prior to Encounter:omeprazole (PRILOSEC) 20 mg capsule Take 40 mg by mouth twice daily.fluticasone-vilanterol (BREO ELLIPTA) 200-25 mcg/dose inhaler Inhale 1Inhalation as instructed once daily.predniSONE (DELTASONE) 10 mg tablet Take 1 tablet by mouth once daily.(Patient taking differently: Take 5 mg by mouth once daily.)ZYRTEC 10MG TABLET NEEDEDgabapentin (NEURONTIN) 300 mg capsule Take 300 mg by mouth three timesdaily.meloxicam (MOBIC) 15 mg tablet Take 1 tablet by mouth daily with food.acetaminophen with codeine (ACETAMINOPHEN-CODEINE) 120 mg-12 mg /5 mL (5mL) Take 5 mL by mouth every 8 hours as needed.albuterol (PROVENTIL) 2.5 mg /3 mL (0.083 %) nebulizer solution Use 3 mLvia nebulizer every 4 hours.budesonide (PULMICORT) 0.5 mg/2 mL nebulizer solution Use 2 mL vianebulizer twice daily.Ranitidine HCl (ZANTAC) 300 mg tablet Take 1 tablet by mouth daily atbedtime. (Patient taking differently: Take 300 mg by mouth as needed.)ALBUTEROL INHALATION Inhale 2 Puffs as instructed as needed.Current Facility-Administered Medications:lidocaine 10 mg/mL (1 %) 1-2 mg injection (XYLOCAINE) 0.1-0.2 mLINTRADERMAL PRN Tonio Teran Jr.lactated ringers infusion 5-30 mL/hr INTRAVENOUS CONTINUOUS Tonio Pierre Jr.ceFAZolin iv piggyback 2 g in D5W (iso-osmotic) 100 mL (ANCEF) 2 gINTRAVENOUS Pre-Op Once Tonio Teran Jr.Allergies: ALLERGIESNo Known AllergiesDOS EXAM: Adequate NPO status: YesAnesthetic risks, benefits, alternatives, personnel and consent discussed:YesPatient agrees to proceed: YesPrevious Anesthesia: No history of adverse event.Airway Assessment: MP 3; Neck ROM: Limited Flexion and Extension; AirwayEvaluation: No significant abnormalitiesSymptoms of Sleep Apnea: NoneDentition: Dentures: bothAdditional Physical Exam:Lungs: Patient health status unchanged since recent history and physical.See history and physical for exam findings.Cardiac: Patient health status unchanged since recent history andphysical. See history and physical for exam findings.Additional Pertinent Findings: N/ABlood Products: Not anticipated for this procedure.Anesthetic Plan: MAC with SedationPain Management Plan: Parenteral or OralASA Class: 3Other Medical Problems: NoneChronic Beta Callie medication administered within 24 hours: N/AI have interviewed and examined the patient. I have reviewed the medicalrecord and/or the pre-anesthesia evaluation, pertinent labs, and testresults.Significant changes in the patient's condition since the History andPhysical, not otherwise documented in primary service progress notes: [facility] updated information obtained within 48 hours ofSurgery/Procedure.SIGNATUR E: Alexx Davis MD PATIENT NAME: Librado GuillenDATE: October 23, 2018 : 1:34 PM CSN: [id number] [facility] HISTORY PHYSICALon 8 HISTORY PHYSICAL HNO ID: [id number] thor: Nancy Justin) SedlackoService: (none)Author Type: Physician AssistantType: HANDPFiled: 10/23/2018 1:48 PMNote Text:HISTORY AND PHYSICAL EXAMINATIONLibrado Smith Ybknbr1609/17/1945SERVICE DATE: 10/23/2018SERVICE TIME: 1:13 [facility] PH[facility]IAN: SONYA NairURGEON: Surgeon(s) and Role: * Tonio Teran Jr. - Primary * Ar (Res) Shantel - Resident - AssistingANESTHESIA: Monitored Anesthesia CareDIAGNOSIS: Carpal tunnel syndrome of right wrist [G56.01]PROCEDURE: Procedure(s):DECOMPRESSION NERVE MEDIAN CARPAL TUNNEL (Right)SubjectiveCHIEF COMPLAINT: Carpal tunnel in my right handHPI: This is a 73 year old male who presents with persistent intermittentpain in the palm and wrist of the right hand. Pain increases and isaccompanied by paresthesias involving the entire hand when patient useshis computer. Pt denies weakness or difficulty grasping objects.PROBLEMS WITH ANESTHESIA:no history of adverse anesthetic eventFAMILY PROBLEMS WITH ANESTHESIA:no history of adverse anesthetic eventMETS:Climb a flight of stairs or walk up a hill (5.50 METs)FUNCTIONAL STATUS: IndependentPAST MEDICAL HISTORYDiagnosis Date- Asthma maintained on low dose Prednisone x 20 years- Patel's esophagus- Diaphragmatic hernia without mention of obstruction or gangrene Hiatal hernia- Esophageal reflux Gastroesophageal reflux- FABIANO (obstructive sleep apnea) compliant with CPAP at nightPAST SURGICAL HISTORYProcedure Laterality Date- PAST SURGICAL HISTORY OF 1973 gallbladder removed- PAST SURGICAL HISTORY OF 1974 right rib removed; TOS- PAST SURGICAL HISTORY OF Multiple EGDs for Barretts esopagus- PAST SURGICAL HISTORY OF bronchotheroplasty- PAST SURGICAL HISTORY OF Right 05/23/2018 R Forearm Laceration Involving TendonFAMILY HISTORYProblem Relation Age of Onset- Heart Mother CHF- Cancer Father lung CASocial HistorySubstance Use Topics- Smoking status: Former Smoker Packs/day: 0.50 Years: 15.00 Types: Cigarettes Quit date: 12/06/1993- Smokeless tobacco: Never Used- Alcohol use Yes Comment: SOCIAL DRINKER 1-2 DRINKS PER MONTHPrior to Admission medications as of 10/23/18 1341Medication Sig Last Dose Takingomeprazole (PRILOSEC) 20 mg capsule Take 40 mg by mouth twice daily. 10/23/2018 at 0730 Yesfluticasone-vilanterol (BREO ELLIPTA) 200-25 mcg/dose inhaler Inhale 1Inhalation as instructed once daily. 10/23/2018 at 0700 Yesalbuterol (PROVENTIL) 2.5 mg /3 mL (0.083 %) nebulizer solution Use 3 mLvia nebulizer every 4 hours. YespredniSONE (DELTASONE) 10 mg tablet Take 1 tablet by mouth once daily.Patient taking differently: Take 5 mg by mouth once daily. 10/23/2018 at 0730 YesALBUTEROL INHALATION Inhale 2 Puffs as instructed as needed. YesZYRTEC 10MG TABLET NEEDED Yesgabapentin (NEURONTIN) 300 mg capsule Take 300 mg by mouth three timesdaily.meloxicam (MOBIC) 15 mg tablet Take 1 tablet by mouth daily with food.acetaminophen with codeine (ACETAMINOPHEN-CODEINE) 120 mg-12 mg /5 mL (5mL) Take 5 mL by mouth every 8 hours as needed.budesonide (PULMICORT) 0.5 mg/2 mL nebulizer solution Use 2 mL vianebulizer twice daily.Ranitidine HCl (ZANTAC) 300 mg tablet Take 1 tablet by mouth daily atbedtime.Patient taking differently: Take 300 mg by mouth as needed.ALLERGIESNo Known AllergiesCOMPLETE REVIEW OF SYSTEMS:GENERAL: No weight loss, malaise or feversRESPIRATORY: Positive hx of asthma; maintained on low-dose Prednisone x 20years, uses maintenance Breo daily; positive for FABIANO, compliant with CPAPat nightCARDIOVASCULAR: Negative for chest pain, leg swelling, hypertension, CHFor palpitationsGI: Positive for GERD and Barretts esophagusGU: No history of dysuria, frequency or incontinenceMUSCULOSKELETAL: Negative for joint pain or swelling, back pain or musclepainPSYCH: Negative for sleep disturbance, mood disorder and recentpsychosocial stressorsENDOCRINE: Negative for cold or heat intolerance, polyuria, polydipsia andgoiterNEURO: No history of headaches, syncope, paralysis, seizures or tremorsNegative for stroke, seizures or headaches.ObjectivePHYSICAL EXAM:MENTAL STATUS: alert, oriented to person, place and timeHEENT: Normocephalic/atraumatic, no lymphadenopathy, thyroid non-tender,without palpable masses/nodules or enlargementLUNGS: Lungs clear to auscultation, Good diaphragmatic excursionCARDIAC: Normal S1 and S2; no rubs, murmurs, or gallopsABDOMEN: Abdomen soft, non-tender, BS normal, No masses or organomegalyEXTREMITIES: Extremities normal, no deformities, edema, clubbing or skindiscoloration. Good capillary refill., No ulcers; +3 tulio radial pulses; noweakness on hand grasp tulio} 332BP: 176/88Pulse: 88Resp: 16Temp: 36.2 ?C (97.2 ?F)SpO2: 97%Weight: 116.1 kg (256 lb)Height: 177.8 cm (5' 10)Body mass index is 36.73 kg/m?.SIGNATURE: Nancy Scales PA-C PATIENT NAME: Librado GuillenDATE: October 23, 2018 : 1:13 PM PAGER/CONTACT #: [facility] PT EDon 10-23-2018 PT ED HNO ID: [id number] thor: Jaja (Rn) CRUZ Clintonervice: (none)Author Type: Registered NurseType: Patient EducationFiled: 10/23/2018 1:35 PMNote Text:ONGOING PATIENT EDUCATION TOPIC Reinforced: pain scalePatient Name: Librado GuillenMRN: [id number] [facility] To LearnMotivation To Learn: EagerInstruction Provided To: PatientLearning ResponsePatient/Family Response: Verbalizes understanding of: PAINMANAGEMENT-Effective strategies to manage pain in addition to painmedicationMethod of Instruction: Individual instructionFollow-Up Plan: Complete - No need for follow-upElectronically signed by: Jaja Clinton RN [facility] HOSPon 08-29-2018 HOSP Patient:Humza Guillen DMRN: Height:5' 10(1.778 m)Weight:No patient weight recorded within the last 30 days.Outpatient Medications as of 10/23/18:gabapentin (NEURONTIN) 300 mg capsulemeloxicam (MOBIC) 15 mg tabletacetaminophen with codeine (ACETAMINOPHEN-CODEINE) 120 mg-12 mg /5 mL (5 mL)omeprazole (PRILOSEC) 20 mg capsulefluticasone-vilantero l (BREO ELLIPTA) 200-25 mcg/dose inhaleralbuterol (PROVENTIL) 2.5 mg /3 mL (0.083 %) nebulizer solutionpredniSONE (DELTASONE) 10 mg tabletbudesonide (PULMICORT) 0.5 mg/2 mL nebulizer solutionRanitidine HCl (ZANTAC) 300 mg tabletALBUTEROL INHALATIONZYRTEC 10MG TABLETAdmission/Clinic Administered Medications as of 10/23/18:lactated ringers infusionceFAZolin iv piggyback 2 g in D5W (iso-osmotic) 100 mL (ANCEF)lactated ringers infusionfentaNYL 50 mcg/mL 25 mcg injection (SUBLIMAZE)HYDROmorphone 0.5 mg injection (DILAUDID)ondansetron (PF) 4 mg injection (ZOFRAN)oxyCODONE IR 5 mg tab(s) (ROXICODONE)Problem List:Uncomplicated severe persistent asthma [J45.50]Dyspnea on exertion [R06.09]GERD (gastroesophageal reflux disease) [K21.9]Asthma [J45.909]Laceration of right forearm with tendon involvement [S51.811A, S56.921A]Dog bite of left forearm [S51.852A, W54.0XXA]Forearm laceration involving tendon, right, initial encounter [S51.811A,S56.921A]Obesity, Class II, BMI 35-39.9 [E66.9]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]Extensor tenosynovitis of right wrist [M65.841]Dog bite of right forearm [S51.851A, W54.0XXA]Carpal tunnel syndrome of right wrist [G56.01]Allergies:No Known AllergiesDate Verified:10/23/18Lab ValuesNo results within the last 30 days for the following basenames: Bill Burger progress notes entered within the past 30 days [facility] CNOVon 08-15-2018 CNOV Office Visit (AGHWG1) ----LIBRADO GUILLEN ([id number]) 1945 [facility] Time Provider Department08/15/18 9:45 AM TONIO TERAN JR AGHWG1 During your visit today, we recorded the following information about you: Respiration Weight Height 16/minute 116.1 kg 1.778 Felixchristiekaiden Moy Giraldo 08/15/2018 10:08 AM SignedREVIEW OF SYSTEMS:GENERAL: Well developed, well nourished. No acute distressPAIN: Negative for pain, history of chronic pain or current treatment forchronic pain conditionsCARDIOVASCULAR: Negative for chest pain, leg swelling and palpations.MSK: Negative for joint pain, swelling, back pain, muscle pain.SKIN: Negative for lesions, rash, itching, metal sensitivityNEURO: Negative for seizure, trauma, numbness/tingling of extremities.ENDOCRINE: Negative for Diabetes Type 1 and Type 2HEMATOLOGY: Negative for excessive bleeding, clots, bleeding disorders.Tonio Teran MD 08/15/2018 10:08 AM SignedCARPAL TUNNEL08/15/2018DOB: 1945HISTORY OF CHIEF COMPLAINT: Librado Guillen is a 72 year old male who is seeingme today for Carpal Tunnel Syndrome.HPI:Numbness and tingling in the median nerve distribution: rightDURATION: 2-6 monthsCHARACTER: IntermittentSEVERITY: ModerateTIMING: All timesDAILY ACTIVITIES: moderatelyPREVIOUS TREATMENT: NonePAST MEDICAL HISTORYDiagnosis Date- Asthma Asthma- Diaphragmatic hernia without mention of obstruction or gangrene Hiatal hernia- Esophageal cancer (HCC)- Esophageal reflux Gastroesophageal reflux- Unspecified sinusitis (chronic) Chronic sinusitis- Unspecified sleep apnea Sleep apnea - uses cpap at nightPAST SURGICAL HISTORYProcedure Laterality Date- PAST SURGICAL HISTORY OF 1973 gallbladder removed- PAST SURGICAL HISTORY OF 1974 right rib removed- PAST SURGICAL HISTORY OF esophageal burnings- PAST SURGICAL HISTORY OF bronchotheroplasty- PAST SURGICAL HISTORY OF Right 05/23/2018 R Forearm Laceration Involving TendonSocial History Marital status: Spouse name: Years of education: Number of children:Occupational HistoryOccupation Employer CommentRetiredSocial History Main Topics Smoking status: Former Smoker Packs/day: 0.50 Years: 15.00 Types: Cigarettes Quit date: 12/06/1993 Smokeless tobacco: Never Used Alcohol use: Yes Comment: SOCIAL DRINKER 1-2 DRINKS PER MONTH Drug use: NoOther Topics ConcernCaffeine Concern YesSpecial Diet NoExercise YesMedications:Current Outpatient Prescriptions:gabapentin (NEURONTIN) 300 mg capsule Take 300 mg by mouth three times daily.Disp: Rfl:acetaminophen with codeine (ACETAMINOPHEN-CODEINE) 120 mg-12 mg /5 mL (5 mL)Take 5 mL by mouth every 8 hours as needed. Disp: Rfl:omeprazole (PRILOSEC) 20 mg capsule Take 40 mg by mouth twice daily. Disp:Rfl:fluticasone-vilante rol (BREO ELLIPTA) 200-25 mcg/dose inhaler Inhale 1Inhalation as instructed once daily. Disp: Rfl:albuterol (PROVENTIL) 2.5 mg /3 mL (0.083 %) nebulizer solution Use 3 mL vianebulizer every 4 hours. Disp: Rfl: 0predniSONE (DELTASONE) 10 mg tablet Take 1 tablet by mouth once daily. (Patienttaking differently: Take 5 mg by mouth once daily.) Disp: 18 tablet Rfl: 0budesonide (PULMICORT) 0.5 mg/2 mL nebulizer solution Use 2 mL via nebulizertwice daily. Disp: Rfl:Ranitidine HCl (ZANTAC) 300 mg tablet Take 1 tablet by mouth daily at bedtime.(Patient taking differently: Take 300 mg by mouth as needed.) Disp: 30 tablet Rfl: 6ALBUTEROL INHALATION Inhale 2 Puffs as instructed as needed. Disp: Rfl:ZYRTEC 10MG TABLET NEEDED Disp: 0 Rfl: 0meloxicam (MOBIC) 15 mg tablet Take 1 tablet by mouth daily with food. Disp: 30tablet Rfl: 0No current facility-administered medications for this visit.ALLERGIESNo Known AllergiesResp 16 Ht 177.8 cm (5' 10) Wt 116.1 kg (256 lb) BMI 36.73 kg/m?PHYSICAL EXAMINATION:General: he is a well developed, well nourished malePsyche: he is alert and oriented and cooperative to our examinationSkin: Skin condition is healthy without rashes or erythema.Cadiovascular: Palpable radial pulse with brisk cap refill distallyNeck: Supple with no JVDLymph: There is no palpable epitrochlearPulmonary: There is non labored breathing. There is no evidence of cyanosis.There is no clubbing of his fingernails. he has no pursed lips.Neuro: he is alert and oriented x3. There are no focal neurologic deficits. Seesensation exam below.Head: Normocephalic and atraumaticMusculoskeletal:Hogan nd:NERVOUS SYSTEM:Tinel at wrist:negativeTinel at elbow:negativeMedian nerve compression test:postivePhalen's maneuver:postiveElbow flexion test:negativeThenar Atrophy R:negativeThenar Atrophy L:negativeSensation: Intact to light touchAPB strength:5/5Review of Studies: Nerve conduction study and EMG show a moderate right carpaltunnel syndromeAssessment:Carpal Tunnel Syndrome rightRECOMMENDATIONS:Surgery Splints: Wear splints at night.Plan:I did offer him Right carpal tunnel release. I explained the risk, benefits,and potential complications of surgery. he understands these risks and agreeswith the plan. We will schedule this at our earliest mutual convenience.Please note: This note has been produced using speech recognition software andmay contain errors related to that system including grammar, punctuation,spelling, gender and words and phrases that may be inappropriate.Referring Provider: SELF [[id number]]Allergies As of Date: 08/15/2018(No Known Allergies)Date Reviewed: 08/15/2018Reviewed by: Tonio Teran Jr. - Fully AssessedReason for Visit: Follow Up [171] Cmt: f/u status post EMG/NCSPrimary Visit Diagnosis:Carpal tunnel syndrome of right wrist [G56.01]Prescriptions as of 08/15/2018 Sig: GABAPENTIN 300 MG CAPSULE Take 300 mg by mouth three ti* ACETAMINOPHEN 120 MG-CODEINE * Take 5 mL by mouth every 8 ho* OMEPRAZOLE 20 MG CAPSULE,LIDA* Take 40 mg by mouth twice chelsey* FLUTICASONE 200 MCG-VILANTERO* Inhale 1 Inhalation as instru* ALBUTEROL SULFATE 2.5 MG/3 ML* Use 3 mL via nebulizer every * PREDNISONE 10 MG TABLET Take 1 tablet by mouth once d* Patient taking differently: Take 5 mg by mouth once daily* BUDESONIDE 0.5 MG/2 ML SUSPEN* Use 2 mL via nebulizer twice * RANITIDINE 300 MG TABLET Take 1 tablet by mouth daily * Patient taking differently: Take 300 mg by mouth as neede* ALBUTEROL INHALATION Inhale 2 Puffs as instructed * * ZYRTEC 10 MG TABLET NEEDED MELOXICAM 15 MG TABLET Take 1 tablet by mouth daily *Problem List As Of Date 08/15/2018 Noted Resolved Asthma, severe persistent [J45.50] INVALID FOR*05/09/2016 Asthma [J45.909] INVALID FOR*05/09/2016 Uncomplicated severe persistent asthma [J45.50] INVALID FOR* Dyspnea on exertion [R06.09] INVALID FOR* GERD (gastroesophageal reflux disease) [K21.9] INVALID FOR* Asthma [J45.909] INVALID FOR* Laceration of right forearm with tendon involve*INVALID FOR* Dog bite of left forearm [S51.852A, W54.0XXA] INVALID FOR* Forearm laceration involving tendon, right, ini*INVALID FOR* More... 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] INVALID FOR* Extensor tenosynovitis of right wrist [M65.841] INVALID FOR* Dog bite of right forearm [S51.851A, W54.0XXA] INVALID FOR*Disposition: Return for surgery.Follow-up and Disposition History RecordedEncounter Number: [id number] Status:Closed by TONIO TERAN MD on 08/15/18 [facility] OBSOLETEon 08-15-2018 OBSOLETE Procedure (AGSPHWG) -----LIBRADO GUILLEN ([id number]) 1945 MDate Time Provider Department08/15/18 9:00 AM BRIDGET NARANJO AGSPHWG During your visit today, we recorded the following information about you: Pulse Blood pressure Weight Height 75/minute 152/82 116.1 kg 1.778 Darlene Naranjo MD 08/15/2018 9:01 AM AddendumExplanation of EMG and NCV ProcedureNerve conduction studies (NCS) and electromyography (EMG) are utilized toevaluate damage sustained to the peripheral nervous system. NCS are performedto measure the nerve response to electrical stimulation across a given segment.EMG evaluates the passive and active electrical discharges of the muscle, asspecific nerves and roots innervate muscles of the body. Often times, more thanone muscle motor nerve and sensory nerve must be studied to determine thepresences of disease. Further, nerves are often tested in a espt-[id number], as well as, additional extremities and are crucial in isolating thearea of the spine and/or distal nerve that has been damaged so that thediagnosis and treatment of the patient can be achieved. Therefore, the musclesand nerves examined were medically necessary.Bridget Naranjo MD 08/15/2018 9:19 AM SignedPatient Name: Librado GuillenDate: August 15, 2018Patient : 1945 Patient Age: 72 year oldCC: Patient presents with:EMG: right upperVitals: BP 152/82 Pulse 75 Ht 177.8 cm (5' 10) Wt 116.1 kg (256 lb) BMI 36.73 kg/m?The HANDP completed. He had a dog bite to the right arm 10 weeks ago with surgeryto IANDD. He has been getting tingling tohte right hand waking him up at nightand pain on the dorsal side.I have reviewed the history and physical and examined the patient and there areno changes unless noted below:Heart and lungs exam benign No atrophy of APBTimeout was performed to verify patient name, , allergies and [facility]being [facility] is aware of potential risks and benefits of this procedure. Patientwishes to proceed.Procedure start time: 900Procedure end time: 915Electrodiagnostic testing was performed today was significant for moderatecarpal tunnel on the right.Full report and data will be scanned into the chart.Return if symptoms worsen or fail to improve.ASSESSMENT/PLAN:1. Right upper limb pain - ICD9: 729.5, ICD10: M79.601- NEEDLE EMG EA EXTREMTY W/PARASPINL AREA COMPLETE- MOTOR AND/SENS 5-6 NRV CNDJ PRECONF ELTRODE LIMBJohana Saucedo MA 08/15/2018 9:05 AM SignedReview of SystemsEyes: Negative for blurred vision.Respiratory: Positive for shortness of breath.?Cardiovascular: Negative for chest pain. Negative for leg swelling.Gastrointestinal: Negative for constipation, diarrhea, nausea?and vomiting.Genitourinary: Negative for dysuria.Skin: Negative for itching.Neurological: Negative for headaches. Negative for dizziness, tingling?andweakness.Endo/He me/Allergies: Positive for bruising/bleeding easily.Psychiatric/Behaviora l: Negative for depression?and suicidal ideas.ROS entered by: Rashida Burrows Provider: TONIO TERAN JR [[id number]]Allergies As of Date: 08/15/2018(No Known Allergies)Date Reviewed: 08/15/2018Reviewed by: Bridget Naranjo - Fully AssessedReason for Visit: EMG [2011] Cmt: right upperPrimary Visit Diagnosis:Right upper limb pain [M79.601]Order(s):NEEDLE EMG EA EXTREMTY W/PARASPINL AREA COMPLETE [17484SIW] Order #: [id number] MOTOR AND/SENS 5-6 NRV CNDJ PRECONF ELTRODE LIMB [69324CJS] Order #: [id number] as of 08/15/2018 Sig: GABAPENTIN 300 MG CAPSULE Take 300 mg by mouth three ti* ACETAMINOPHEN 120 MG-CODEINE * Take 5 mL by mouth every 8 ho* OMEPRAZOLE 20 MG CAPSULE,LIDA* Take 40 mg by mouth twice chelsey* FLUTICASONE 200 MCG-VILANTERO* Inhale 1 Inhalation as instru* ALBUTEROL SULFATE 2.5 MG/3 ML* Use 3 mL via nebulizer every * PREDNISONE 10 MG TABLET Take 1 tablet by mouth once d* Patient taking differently: Take 5 mg by mouth once daily* BUDESONIDE 0.5 MG/2 ML SUSPEN* Use 2 mL via nebulizer twice * RANITIDINE 300 MG TABLET Take 1 tablet by mouth daily * Patient taking differently: Take 300 mg by mouth as neede* ALBUTEROL INHALATION Inhale 2 Puffs as instructed * * ZYRTEC 10 MG TABLET NEEDED MELOXICAM 15 MG TABLET Take 1 tablet by mouth daily *Medication notes this encounter ACETAMINOPHEN 120 MG-CODEINE 12 MG/5 ML (5 ML) ORAL SOLUTION >> Navi Prince MA 08/15/2018 9:03 AM >> NAVI PRINCE MA SatAug 15, 2018 9:03 AM MELOXICAM 15 MG TABLET >> Navi Prince MA 08/15/2018 9:04 AM >> NAVI PRINCE MA SatAug 15, 2018 9:04 AM Patient states not takingProblem List As Of Date 08/15/2018 Noted Resolved Asthma, severe persistent [J45.50] INVALID FOR*05/09/2016 Asthma [J45.909] INVALID FOR*05/09/2016 Uncomplicated severe persistent asthma [J45.50] INVALID FOR* Dyspnea on exertion [R06.09] INVALID FOR* GERD (gastroesophageal reflux disease) [K21.9] INVALID FOR* Asthma [J45.909] INVALID FOR* Laceration of right forearm with tendon involve*INVALID FOR* Dog bite of left forearm [S51.852A, W54.0XXA] INVALID FOR* Forearm laceration involving tendon, right, ini*INVALID FOR* More... 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 NCS are performed to measure the nerve response to electrical stimulation across a given segment. EMG evaluates the passive and active electrical discharges of the muscle, as specific nerves and roots innervate muscles of the body. Often times, more than one muscle motor nerve and sensory nerve must be studied to determine the presences of disease. Further, nerves are often tested in a mbwy-gt-lkek comparison, as well as, additional extremities and are crucial in isolating the area of the spine and/or distal nerve that has been damaged so that the diagnosis and treatment of the patient can be achieved. Therefore, the muscles and nerves examined were medically necessary.Visit Notes:>> Navi Prince Fri Aug 15, 2018 9:04 AM Status: SignedReview of SystemsEyes: Negative for blurred vision.Respiratory: Positive for shortness of breath.?Cardiovascular: Negative for chest pain. Negative for leg swelling.Gastrointestinal: Negative for constipation, diarrhea, nausea?andvomiting.Genitouri nary: Negative for dysuria.Skin: Negative for itching.Neurological: Negative for headaches. Negative for dizziness, tingling?andweakness.Endo/He me/Allergies: Positive for bruising/bleeding easily.Psychiatric/Behaviora l: Negative for depression?and suicidal ideas.ROS entered by: KENYA Burrowsisposition: Return if symptoms worsen or fail to improve.Follow-up and Disposition History RecordedEncounter Number: [id number] Status:Closed by BRIDGET NARANJO MD on 08/15/18 [facility] PROCEDUREon 08-15-2018 Protein mass conc HNO ID: [id number] thor: Bridget Nicolas: (none)Author Type: PhysicianType: ProceduresFiled: 08/15/2018 9:19 AMNote Text:Patient Name: Librado GuillenDate: August 15, 2018Patient : 1945 Patient Age: 72 year oldCC: Patient presents with:EMG: right upperVitals: BP 152/82 Pulse 75 Ht 177.8 cm (5' 10) Wt 116.1 kg (256lb) BMI 36.73 kg/m?The HANDP completed. He had a dog bite to the right arm 10 weeks ago withsurgery to IANDD. He has been getting tingling tohte right hand waking himup at night and pain on the dorsal side.I have reviewed the history and physical and examined the patient andthere are no changes unless noted below:Heart and lungs exam benign No atrophy of APBTimeout was performed to verify patient name, , allergies and procedurebeing performed at [facility] is aware of potential risks and benefits of this procedure.Patient wishes to proceed.Procedure start time: 900Procedure end time: 915Electrodiagnostic testing was performed today was significant for moderatecarpal tunnel on the right.Full report and data will be scanned into the chart.Return if symptoms worsen or fail to improve.ASSESSMENT/PLAN:1. Right upper limb pain - ICD9: 729.5, ICD10: M79.601- NEEDLE EMG EA EXTREMTY W/PARASPINL AREA COMPLETE- MOTOR AND/SENS 5-6 NRV CNDJ PRECONF ELTRODE LIMBBridget Naranjo MD [facility] PROGRESSon 08-15-2018 Protein mass conc HNO ID: [id number] thor: Tonio Teran Jr.Service: (none)Author Type: PhysicianType: Progress NotesFiled: 08/15/2018 10:08 AMNote Text:CARPAL TUNNEL08/15/2018DOB: 1945HISTORY OF CHIEF COMPLAINT: Librado Guillen is a 72 year old male who isseeing me today for Carpal Tunnel Syndrome.HPI:Numbness and tingling in the median nerve distribution: rightDURATION: 2-6 monthsCHARACTER: IntermittentSEVERITY: ModerateTIMING: All timesDAILY ACTIVITIES: moderatelyPREVIOUS TREATMENT: NonePAST MEDICAL HISTORYDiagnosis Date- Asthma Asthma- Diaphragmatic hernia without mention of obstruction or gangrene Hiatal hernia- Esophageal cancer (HCC)- Esophageal reflux Gastroesophageal reflux- Unspecified sinusitis (chronic) Chronic sinusitis- Unspecified sleep apnea Sleep apnea - uses cpap at nightPAST SURGICAL HISTORYProcedure Laterality Date- PAST SURGICAL HISTORY OF 1973 gallbladder removed- PAST SURGICAL HISTORY OF 1974 right rib removed- PAST SURGICAL HISTORY OF esophageal burnings- PAST SURGICAL HISTORY OF bronchotheroplasty- PAST SURGICAL HISTORY OF Right 05/23/2018 R Forearm Laceration Involving TendonSocial History Marital status: Spouse name: Years of education: Number of children:Occupational HistoryOccupation Employer CommentRetiredSocial History Main Topics Smoking status: Former Smoker Packs/day: 0.50 Years: 15.00 Types: Cigarettes Quit date: 12/06/1993 Smokeless tobacco: Never Used Alcohol use: Yes Comment: SOCIAL DRINKER 1-2 DRINKS PER MONTH Drug use: NoOther Topics ConcernCaffeine Concern YesSpecial Diet NoExercise YesMedications:Current Outpatient Prescriptions:gabapentin (NEURONTIN) 300 mg capsule Take 300 mg by mouth three timesdaily. Disp: Rfl:acetaminophen with codeine (ACETAMINOPHEN-CODEINE) 120 mg-12 mg /5 mL (5mL) Take 5 mL by mouth every 8 hours as needed. Disp: Rfl:omeprazole (PRILOSEC) 20 mg capsule Take 40 mg by mouth twice daily.Disp: Rfl:fluticasone-vilanterol (BREO ELLIPTA) 200-25 mcg/dose inhaler Inhale 1Inhalation as instructed once daily. Disp: Rfl:albuterol (PROVENTIL) 2.5 mg /3 mL (0.083 %) nebulizer solution Use 3 mLvia nebulizer every 4 hours. Disp: Rfl: 0predniSONE (DELTASONE) 10 mg tablet Take 1 tablet by mouth once daily.(Patient taking differently: Take 5 mg by mouth once daily.) Disp: 18 tablet Rfl: 0budesonide (PULMICORT) 0.5 mg/2 mL nebulizer solution Use 2 mL vianebulizer twice daily. Disp: Rfl:Ranitidine HCl (ZANTAC) 300 mg tablet Take 1 tablet by mouth daily atbedtime. (Patient taking differently: Take 300 mg by mouth as needed.) Disp: 30 tablet Rfl: 6ALBUTEROL INHALATION Inhale 2 Puffs as instructed as needed. Disp: Rfl:ZYRTEC 10MG TABLET NEEDED Disp: 0 Rfl: 0meloxicam (MOBIC) 15 mg tablet Take 1 tablet by mouth daily with food.Disp: 30 tablet Rfl: 0No current facility-administered medications for this visit.ALLERGIESNo Known AllergiesResp 16 Ht 177.8 cm (5' 10) Wt 116.1 kg (256 lb) BMI 36.73 kg/m?PHYSICAL EXAMINATION:General: he is a well developed, well nourished malePsyche: he is alert and oriented and cooperative to our examinationSkin: Skin condition is healthy without rashes or erythema.Cadiovascular: Palpable radial pulse with brisk cap refill distallyNeck: Supple with no JVDLymph: There is no palpable epitrochlearPulmonary: There is non labored breathing. There is no evidence ofcyanosis. There is no clubbing of his fingernails. he has no pursed lips.Neuro: he is alert and oriented x3. There are no focal neurologicdeficits. See sensation exam below.Head: Normocephalic and atraumaticMusculoskeletal:Hogan nd:NERVOUS SYSTEM:Tinel at wrist:negativeTinel at elbow:negativeMedian nerve compression test:postivePhalen's maneuver:postiveElbow flexion test:negativeThenar Atrophy R:negativeThenar Atrophy L:negativeSensation: Intact to light touchAPB strength:5/5Review of Studies: Nerve conduction study and EMG show a moderate rightcarpal tunnel syndromeAssessment:Carpal Tunnel Syndrome rightRECOMMENDATIONS:Surgery Splints: Wear splints at night.Plan:I did offer him Right carpal tunnel release. I explained the risk,benefits, and potential complications of surgery. he understands theserisks and agrees with the plan. We will schedule this at our earliestmutual convenience.Please note: This note has been produced using speech recognition softwareand may contain errors related to that system including grammar,punctuation, spelling, gender and words and phrases that may beinappropriate. [facility] Protein mass conc HNO ID: [id number] thor: [employer]) Rip: (none)Author Type: TechnicianType: Progress NotesFiled: 08/15/2018 10:08 AMNote Text:REVIEW OF SYSTEMS:GENERAL: Well developed, well nourished. No acute distressPAIN: Negative for pain, history of chronic pain or current treatment forchronic pain conditionsCARDIOVASCULAR: Negative for chest pain, leg swelling and palpations.MSK: Negative for joint pain, swelling, back pain, muscle pain.SKIN: Negative for lesions, rash, itching, metal sensitivityNEURO: Negative for seizure, trauma, numbness/tingling of extremities.ENDOCRINE: Negative for Diabetes Type 1 and Type 2HEMATOLOGY: Negative for excessive bleeding, clots, bleeding disorders. [facility] CNOVon 07-08-2018 CNOV Office Visit (AGPOB3) ----LIBRADO GUILLEN ([id number]) 1945 MDate Time Provider Department07/08/18 8:00 AM TONIO TERAN JR AGPOB3 During your visit today, we recorded the following information about you: Respiration Weight Height 16/minute 117 kg 1.778 Lary Tang [employer] 07/08/2018 8:21 AM SignedREVIEW OF SYSTEMS:GENERAL: Well developed, well nourished. No acute distressPAIN: Pain right forearmCARDIOVASCULAR: Negative for chest pain, leg swelling and palpations.MSK: Negative for joint pain, swelling, back pain, muscle pain.SKIN: Negative for lesions, rash, itching, metal sensitivityNEURO: Trauma 4-85-00OPUAHBOJN: Negative for Diabetes Type 1 and Type 2HEMATOLOGY: Negative for excessive bleeding, clots, bleeding disorders.Tonio Teran MD 07/08/2018 8:21 AM SignedPatient presents with:Follow Up: Right wrist/forearmPROCEDUREIrriga tion and debridement right forearm laceration from dog biteHISTORY OF PRESENT ILLNESSLibrado Guillen presents for post operative follow up 6 weeks from surgery.He complains of pain on the dorsal aspect of his right hand. He has weakness aswell with the right hand. He also complains of numbness and tingling in theright hand. Sometimes this wakes him up at night and he has to shake his handout to try to get the sensation back.Current Concerns: As abovePain control: ControlledCurrently taking pain medication:NoFever, chills or other signs of infection: NonePHYSICAL EXAMINATIONNo erythema, cellulitis or drainageIncision lines are intact, no drainage noted. Scars are maturing nicelyROM: He has near full range of motion with the elbow wrist and fingersSensation:Normal sensationHe is tender to palpation over the fourth dorsal compartment at the wrist andhand.He is a positive Tinel sign over the median nerve at the wrist and positivemedian nerve compression test. He is unable to tolerate a Phalen's maneuver.Brisk cap refillIMAGINGNoneASSESSMENT AND PLAN:Dog bite of right forearm, subsequent encounter (primary encounter diagnosis)Extensor tenosynovitis of right wristRight median nerve neuropathyI believe he has an extensor tenosynovitis from the inflammation of the dogbite and surgery. He does have a wrist cock-up splint at home but this causesmore pain when he takes the splint off. He would rather avoid using the wristsplint. I also believe he's developed a median neuropathy or even carpal tunnelsyndrome from increased inflammation in the flexor tendons as a result of hisinjury. I would like to get a nerve conduction study and EMG to evaluate themedian nerve. I'll see him back once the nerve test is completed. In themeantime we will start him on meloxicam. He is already on steroids for hisasthma. I spoke with him at length about avoiding strenuous or repetitiveactivities with the right upper extremity. I'll see him back once the nervetest is completed.Pt education provided on lifting restrictionsPatient was instructed to call the office with any questions and/or concernsPlease note: This note has been produced using speech recognition software andmay contain errors related to that system including grammar, punctuation,spelling, gender and words and phrases that may be inappropriate.Referring Provider: SELF [[id number]]Allergies As of Date: 07/08/2018(No Known Allergies)Date Reviewed: 07/08/2018Reviewed by: Clover MOREL - Fully AssessedReason for Visit: Follow Up [171] Cmt: Right wrist/forearmPrimary Visit Diagnosis:Dog bite of right forearm, subsequent encounter [S51.851D, W54.0XXD] Other Visit Diagnoses:Extensor tenosynovitis of right wrist [M65.841] 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]Order(s):CONSULT TO PAIN MGT ANESTHESIA [20000301] Order #: [id number]: 1 meloxicam (MOBIC) 15 mg tabletTake 1 tablet by mouth daily with food.Disp: 30 tabletRfl: 0Prescriptions as of 07/08/2018 Sig: GABAPENTIN 300 MG CAPSULE Take 300 mg by mouth three ti* OMEPRAZOLE 20 MG CAPSULE,LIDA* Take 40 mg by mouth twice chelsey* FLUTICASONE 200 MCG-VILANTERO* Inhale 1 Inhalation as instru* ALBUTEROL SULFATE 2.5 MG/3 ML* Use 3 mL via nebulizer every * PREDNISONE 10 MG TABLET Take 1 tablet by mouth once d* Patient taking differently: Take 5 mg by mouth once daily* RANITIDINE 300 MG TABLET Take 1 tablet by mouth daily * Patient taking differently: Take 300 mg by mouth as neede* ALBUTEROL INHALATION Inhale 2 Puffs as instructed * * ZYRTEC 10 MG TABLET NEEDED MELOXICAM 15 MG TABLET Take 1 tablet by mouth daily * ACETAMINOPHEN 120 MG-CODEINE * Take 5 mL by mouth every 8 ho* BUDESONIDE 0.5 MG/2 ML SUSPEN* Use 2 mL via nebulizer twice * Patient not taking: Reported on 05/21/2018Medication notes this encounter ACETAMINOPHEN 120 MG-CODEINE 12 MG/5 ML (5 ML) ORAL SOLUTION >> Clover MOREL 07/08/2018 7:59 AM >> CLOVER SEPULVEDA Jul 08, 2018 7:59 AM No longer takingProblem List As Of Date 07/08/2018 Noted Resolved Asthma, severe persistent [J45.50] INVALID FOR*05/09/2016 Asthma [J45.909] INVALID FOR*05/09/2016 Uncomplicated severe persistent asthma [J45.50] INVALID FOR* Dyspnea on exertion [R06.09] INVALID FOR* GERD (gastroesophageal reflux disease) [K21.9] INVALID FOR* Asthma [J45.909] INVALID FOR* Laceration of right forearm with tendon involve*INVALID FOR* Dog bite of left forearm [S51.852A, W54.0XXA] INVALID FOR* Forearm laceration involving tendon, right, ini*INVALID FOR* More... 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] INVALID FOR* Extensor tenosynovitis of right wrist [M65.841] INVALID FOR* Dog bite of right forearm [S51.851A, W54.0XXA] INVALID FOR*Prescriptions ordered this encounter Disp Refills Start End MELOXICAM 15 MG TABLET 30 t* 0 07/08/2018 Route: ORAL Sig: Take 1 tablet by mouth daily with food.Disposition: Return for after nerve test.Follow-up and Disposition History RecordedEncounter Number: [id number] Status:Closed by TONIO TERAN MD on 07/08/18 [facility] PROGRESSon 07-08-2018 Protein mass conc HNO ID: [id number] thor: Tonio Teran Jr.Service: (none)Author Type: PhysicianType: Progress NotesFiled: 07/08/2018 8:21 AMNote Text:Patient presents with:Follow Up: Right wrist/forearmPROCEDUREIrriga tion and debridement right forearm laceration from dog biteHISTORY OF PRESENT ILLNESSLibrado Guillen presents for post operative follow up 6 weeks fromsurgery.He complains of pain on the dorsal aspect of his right hand. He hasweakness as well with the right hand. He also complains of numbness andtingling in the right hand. Sometimes this wakes him up at night and hehas to shake his hand out to try to get the sensation back.Current Concerns: As abovePain control: ControlledCurrently taking pain medication:NoFever, chills or other signs of infection: NonePHYSICAL EXAMINATIONNo erythema, cellulitis or drainageIncision lines are intact, no drainage noted. Scars are maturing nicelyROM: He has near full range of motion with the elbow wrist and fingersSensation:Normal sensationHe is tender to palpation over the fourth dorsal compartment at the wristand hand.He is a positive Tinel sign over the median nerve at the wrist andpositive median nerve compression test. He is unable to tolerate aPhalen's maneuver.Brisk cap refillIMAGINGNoneASSESSMENT AND PLAN:Dog bite of right forearm, subsequent encounter (primary encounterdiagnosis)Extensor tenosynovitis of right wristRight median nerve neuropathyI believe he has an extensor tenosynovitis from the inflammation of thedog bite and surgery. He does have a wrist cock-up splint at home but thiscauses more pain when he takes the splint off. He would rather avoid usingthe wrist splint. I also believe he's developed a median neuropathy oreven carpal tunnel syndrome from increased inflammation in the flexortendons as a result of his injury. I would like to get a nerve conductionstudy and EMG to evaluate the median nerve. I'll see him back once thenerve test is completed. In the meantime we will start him on meloxicam.He is already on steroids for his asthma. I spoke with him at length aboutavoiding strenuous or repetitive activities with the right upperextremity. I'll see him back once the nerve test is completed.Pt education provided on lifting restrictionsPatient was instructed to call the office with any questions and/orconcernsPlease note: This note has been produced using speech recognition softwareand may contain errors related to that system including grammar,punctuation, spelling, gender and words and phrases that may beinappropriate. [facility] Protein mass conc HNO ID: [id number] thor: Clover Tang TECHService: (none)Author Type: (none)Type: Progress NotesFiled: 07/08/2018 8:21 AMNote Text:REVIEW OF SYSTEMS:GENERAL: Well developed, well nourished. No acute distressPAIN: Pain right forearmCARDIOVASCULAR: Negative for chest pain, leg swelling and palpations.MSK: Negative for joint pain, swelling, back pain, muscle pain.SKIN: Negative for lesions, rash, itching, metal sensitivityNEURO: Trauma 4-18-99EGPCPFLOE: Negative for Diabetes Type 1 and Type 2HEMATOLOGY: Negative for excessive bleeding, clots, bleeding disorders. [facility] CNOVon 06-10-2018 CNOV Office Visit (AGPOB3) ----LIBRAD[facility]LLEN ([id number]) 1945 [facility]06/10/18 1:15 PM TONIO TERAN JR AGPOB3 During your visit today, we recorded the following information about you: Respiration Weight Height 18/minute 116.1 kg 1.778 mWmara Teran MD 06/10/2018 2:11 PM SignedPatient presents with:Surgical Followup: R Forearm DOS 05/23/2018PROCEDUREIrrigation and debridement right forearm woundHISTORY OF PRESENT ILLNESSLibrado Guillen presents for post operative follow up 2-1/2 weeks from surgery.He is doing well. He has no complaints today.Current Concerns: NonePain control: Well-controlledCurrently taking pain medication:NoFever, chills or other signs of infection: NonePHYSICAL EXAMINATIONNo erythema, cellulitis or drainageIncision lines are intact, no drainage noted. Scars are maturing nicely andSutures removed without difficulty. Patient tolerated procedure wellROM: FullSensation:Normal sensationBrisk cap refillIMAGINGNoneASSESSMENT AND PLAN:Laceration of right forearm with tendon involvement, initial encounter(primary encounter diagnosis)Dog bite of left forearm, initial encounterI want him to avoid any heavy lifting or heavy activity for another 2 weeks. Hewill then have no restrictions. I'll see him back on an as-needed basis.Pt education provided on lifting restrictionsPatient was instructed to call the office with any questions and/or concernsPlease note: This note has been produced using speech recognition software andmay contain errors related to that system including grammar, punctuation,spelling, gender and words and phrases that may be inappropriate.Referring Provider: TONIO TERAN JR [[id number]]Allergies As of Date: 06/10/2018(No Known Allergies)Date Reviewed: 06/10/2018Reviewed by: oTnio Teran Jr. - Fully AssessedReason for Visit: Surgical Followup [104] Cmt: R Forearm DOS 05/23/2018Primary Visit Diagnosis:Laceration of right forearm with tendon involvement, initial encounter [S51.811A, S56.921A] Other Visit Diagnosis:Dog bite of left forearm, initial encounter [S51.852A, W54.0XXA]Prescriptions as of 06/10/2018 Sig: ACETAMINOPHEN 120 MG-CODEINE * Take 5 mL by mouth every 8 ho* OMEPRAZOLE 20 MG CAPSULE,LIDA* Take 40 mg by mouth twice chelsey* FLUTICASONE 200 MCG-VILANTERO* Inhale 1 Inhalation as instru* ALBUTEROL SULFATE 2.5 MG/3 ML* Use 3 mL via nebulizer every * PREDNISONE 10 MG TABLET Take 1 tablet by mouth once d* Patient taking differently: Take 5 mg by mouth once daily* RANITIDINE 300 MG TABLET Take 1 tablet by mouth daily * Patient taking differently: Take 300 mg by mouth as neede* ALBUTEROL INHALATION Inhale 2 Puffs as instructed * * ZYRTEC 10 MG TABLET NEEDED BUDESONIDE 0.5 MG/2 ML SUSPEN* Use 2 mL via nebulizer twice * Patient not taking: Reported on 05/21/2018Problem List As Of Date 06/10/2018 Noted Resolved Asthma, severe persistent [J45.50] INVALID FOR*05/09/2016 Asthma [J45.909] INVALID FOR*05/09/2016 Uncomplicated severe persistent asthma [J45.50] INVALID FOR* Dyspnea on exertion [R06.09] INVALID FOR* GERD (gastroesophageal reflux disease) [K21.9] INVALID FOR* Asthma [J45.909] INVALID FOR* Laceration of right forearm with tendon involve*INVALID FOR* Dog bite of left forearm [S51.852A, W54.0XXA] INVALID FOR* Forearm laceration involving tendon, right, ini*INVALID FOR* More... Obesity, Class II, BMI 35-39.9 [E66.9] INVALID FOR*Disposition: Return if symptoms worsen or fail to improve.Follow-up and Disposition History RecordedEncounter Number: [id number] Status:Closed by TONIO TERAN MD on 06/10/18 [facility] PROGRESSon 06-10-2018 Protein mass conc HNO ID: [id number] thor: Tonio Teran Jr.Service: (none)Author Type: PhysicianType: Progress NotesFiled: 06/10/2018 2:11 PMNote Text:Patient presents with:Surgical Followup: R Forearm DOS 05/23/2018PROCEDUREIrrigation and debridement right forearm woundHISTORY OF PRESENT ILLNESSLibrado Guillen presents for post operative follow up 2-1/2 weeks fromsurgery.He is doing well. He has no complaints today.Current Concerns: NonePain control: Well-controlledCurrently taking pain medication:NoFever, chills or other signs of infection: NonePHYSICAL EXAMINATIONNo erythema, cellulitis or drainageIncision lines are intact, no drainage noted. Scars are maturing nicelyand Sutures removed without difficulty. Patient tolerated procedure wellROM: FullSensation:Normal sensationBrisk cap refillIMAGINGNoneASSESSMENT AND PLAN:Laceration of right forearm with tendon involvement, initial encounter(primary encounter diagnosis)Dog bite of left forearm, initial encounterI want him to avoid any heavy lifting or heavy activity for another 2weeks. He will then have no restrictions. I'll see him back on anas-needed basis.Pt education provided on lifting restrictionsPatient was instructed to call the office with any questions and/orconcernsPlease note: This note has been produced using speech recognition softwareand may contain errors related to that system including grammar,punctuation, spelling, gender and words and phrases that may beinappropriate. [facility] OPERATIVE NOon 05-30-2018 OPERATIVE NO HNO ID: [id number] thor: Tonio Teran Jr.Service: Hand SurgeryAuthor Type: PhysicianType: Operative ReportFiled: 05/30/2018 10:47 AMNote Text:[facility] - Operative ReportSURGEON: JAVIER DouglasATIENT NAME: LIBRADO GUILLEN DMRN: [id number] CSN: [id number] OF SURGERY: 05/23/2018DATE OF : 1945 SEX/AGE: M/72PATIENT TYPE: A HOSP SVC: OROR LOCATION: [id number] OF SURGERY: 05/23/2018SURGEON: JAVIER DouglasREOPERATIVE DIAGNOSIS: Forearm laceration involving tendon, right.POSTOPERATIVE DIAGNOSIS: Forearm laceration.PROCEDURE PERFORMED: Exploration of penetrating wound, right forearm.ETL APPLICATION DEVELOPER: Dominguez Brown MD, PGY-3.ANESTHESIA: MAC local.ESTIMATED BLOOD LOSS: Minimal.COMPLICATIONS: None.CLINICAL SUMMARY: This is a 72-year-old male, who was molded by a pitbull, sustained a laceration in the right dorsal mid forearm. Accordingto the ER report, there was a tendon injury. Clinically, the patientcould fire all of finger extensors and wrist extensors. Because of this,I did offer himexploration of penetrating wound, right forearm. I explained the risks,benefits, and potential complications of surgery. He understood theserisks and agreed to proceed.DETAILS OF OPERATION: The patient's right forearm was marked withindelible ink in the preop holding area. He was then brought to theoperating room area and placed in a supine position. A padded tourniquetwas placed in the right upper extremity. Time-out procedure performedand appropriate preop antibiotics were given. After adequate IV sedationwas given, I infiltrated the right forearm with a total 20 mL of 1:1solution of 0.5% Marcaine and 1% lidocaine plain. We then prepped anddraped the right upper extremity in a sterile fashion. We used anEsmarch bandage to exsanguinate the right upper extremity and insufflatedtourniquet to 250 mmHg. Total tourniquet time was less than 60 minutes.We then removed the sutures from his wound. There was a large wound thatextended all the way across to his dorsal forearm transversely. Weopened the wound and debrided the skin edges. The skin edges were jaggedand consistent with more of a ripping tear than a clean cut. His fourthdorsal compartment tendon sheath was exposed; however, none of thetendons were injured. We brought the finger through a full range ofmotion, and I opened the antebrachial fascia in order to expose theentirety of the tendons, and there was no injury. The second and thirdcompartments were also explored and there was no injury. The lacerationdid not cut down to the fifth or sixth dorsal compartments. The firstdorsal compartment tendon sheaths were unfettered. We then deflated thetourniquet. Hemostasis was achieved, and the wound was copiouslyirrigated. We loosely reapproximated the wound with multiple interruptedsutures of 4-0 nylon. Dry sterile dressing was applied. The patient wasplaced in a short-arm splint. All sponge and needle counts were correctat the end the case.DISPOSITION: The patient was discharged to home. He was givenprescription of pain medication and instructed to call my office orreturn to the emergency room for any increasing pain, questions, orconcerns.Tonio Teran MDOrthopedic SurgeryWDL:modlD: 05/30/2018 08:04:49T: 05/30/2018 08:20:15Job #: [id number] [facility] CNCOon 05-26-2018 CNCO Letter Text Tonio Teran MD [id number] [facility] [address], [facility] [id number] [address], [address], [facility] [id number] [facility], [address], [facility] [id number], [facility] [id number] [facility] [phone] ([id number]) akformerly [facility].org.05/26/2018Librado Guillen1945To whom it may concern:This is to certify that Librado Guillen is under my care and underwent righthand surgery on 05/23/18. Please excuse his daughter, Coby Calle, fromwork as she is assisting him in his recovery.Please feel free to contact my office if you have any questions or concerns.Thank you for your assistance in this matter.Tonio Teran MD(Electronically signed to expedite care) [facility] ANES Asha 05-23-2018 ANES POST HNO ID: [id number] thor: Nick Aggarwal TalmageService: AnesthesiologyAuthor Type: PhysicianType: Anesthesia PostOpFiled: 05/23/2018 10:01 PMNote Text:POST ANESTHESIA EVALUATION NOTESERVICE DATE: 05/23/2018SERVICE TIME: 10:01 PMDOB: 1945Vitals: 05/23/1819Temp: (!) 35.3 ?C (95.5 ?F) 36 ?C (96.8 ?F) 36.3 ?C (97.3 ?F) 05/23/1819BP: 131/72 135/71 141/78 140/73 05/23/1819Pulse: 70 71 65 65 05/23/1819Resp: 14 16 12 13 05/23/1819SpO2: 98% 99% 99% 99%Validated Vital Signs: YesPOST ANES STATUS: No apparent anesthetic complications. The patient isappropriately hydrated with stable respiratory and cardiovascular status.Patient has safe and adequate airway control. The patient has appropriatepain relief and no significant post operative nausea or vomiting. Thepatient has achieved baseline mental status.Further assessment by Anesthesia Service: NoneOther Remarks:SIGNATURE: Nick Vizcarra MD PATIENT NAME: Librado KhanTE: May 23, 2018 : 10:01 PM PAGER/CONTACT #: [phone] [facility] ANES PREOPon 05-23-2018 ANES PREOP HNO ID: [id number] thor: Nick Quispeervice: AnesthesiologyAuthor Type: PhysicianType: Anesthesia PreOpFiled: 05/23/2018 9:58 PMNote Text:POST ANESTHESIA EVALUATION NOTESERVICE DATE: 05/23/2018SERVICE TIME: 9:58 PMDOB: 1945Vitals: 05/23/1819Temp: (!) 35.3 ?C (95.5 ?F) 36 ?C (96.8 ?F) 36.3 ?C (97.3 ?F) 05/23/1819BP: 131/72 135/71 141/78 140/73 05/23/1819Pulse: 70 71 65 65 05/23/1819Resp: 14 16 12 13 05/23/1819SpO2: 98% 99% 99% 99%Validated Vital Signs: YesPOST ANES STATUS: No apparent anesthetic complications. The patient isappropriately hydrated with stable respiratory and cardiovascular status.Patient has safe and adequate airway control. The patient has appropriatepain relief and no significant post operative nausea or vomiting. Thepatient has achieved baseline mental status.Further assessment by Anesthesia Service: NoneOther Remarks:SIGNATURE: Nick Vizcarra MD PATIENT NAME: Librado KhanTE: May 23, 2018 : 9:58 PM PAGER/CONTACT #: [phone] [facility] ANES PREOP HNO ID: [id number] thor: Nick Quispeervice: AnesthesiologyAuthor Type: PhysicianType: Anesthesia PreOpFiled: 05/23/2018 4:22 PMNote Text: ANESTHESIOLOGY DAY OF SURGERY NOTESERVICE DATE: 05/23/2018SERVICE TIME: 4:18 PMDOB: 1945Procedure(s) (LRB):EXPLORATION OF PENETRATING WOUND RIGHT FOREARM (Right)POSSIBLE REPAIR RIGHT EXTENSOR TENDONS (Right)Surgeon(s):Tonio Teran Jr.Estimated body mass index is 36.73 kg/m? as calculated from the following: Height as of 05/22/18: 177.8 cm (5' 10). 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 mention of obstruction or gangrene Hiatal hernia- Esophageal cancer (HCC)- Esophageal reflux Gastroesophageal reflux- Unspecified sinusitis (chronic) Chronic sinusitis- Unspecified sleep apnea Sleep apnea - uses cpap at nightPAST SURGICAL HISTORYProcedure Laterality Date- PAST SURGICAL HISTORY OF 1973 gallbladder removed- PAST SURGICAL HISTORY OF 1974 right rib removed- PAST SURGICAL HISTORY OF esophageal burnings- PAST SURGICAL HISTORY OF bronchotheroplastyFAMILY HISTORYProblem Relation Age of Onset- Heart Mother CHF- Cancer Father lung CASocial History:Social HistorySubstance Use Topics- Smoking status: Former Smoker Packs/day: 0.50 Years: 15.00 Types: Cigarettes Quit date: 12/06/1993- Smokeless tobacco: Never Used- Alcohol use No Comment: SOCIAL DRINKER 1-2 DRINKS PER MONTHNo current facility-administered medications on file prior to encounter.Current Outpatient Prescriptions on File Prior to Encounter:albuterol (PROVENTIL) 2.5 mg /3 mL (0.083 %) nebulizer solution Use 3 mLvia nebulizer every 4 hours.predniSONE (DELTASONE) 10 mg tablet Take 1 tablet by mouth once daily.(Patient taking differently: Take 5 mg by mouth once daily.)ALBUTEROL INHALATION Inhale 2 Puffs as instructed as needed.ZYRTEC 10MG TABLET NEEDEDbudesonide (PULMICORT) 0.5 mg/2 mL nebulizer solution Use 2 mL vianebulizer twice daily. (Patient not taking: Reported on 05/21/2018)Ranitidine HCl (ZANTAC) 300 mg tablet Take 1 tablet by mouth daily atbedtime. (Patient taking differently: Take 300 mg by mouth as needed.)Current Facility-Administered Medications:ceFAZolin iv piggyback 2 g in D5W (iso-osmotic) 100 mL (ANCEF) 2 gINTRAVENOUS Pre-Op Once Tonio Teran Jr.Allergies: ALLERGIESNo Known AllergiesDOS EXAM: Adequate NPO status: YesAnesthetic risks, benefits, alternatives, personnel and consent discussed:YesPatient agrees to proceed: YesPrevious Anesthesia: No history of adverse event.Airway Assessment: MP 2; Neck ROM: Full ROM without neurologic symptoms;Airway Evaluation: Short Neck and Thick neckSymptoms of Sleep Apnea: Hypertension, Age over 50 (72 year old) and MalegenderDentition: upper bridgeAdditional Physical Exam:Lungs: Patient health status unchanged since recent history and physical.See history and physical for exam findings.Cardiac: Patient health status unchanged since recent history andphysical. See history and physical for exam findings.Additional Pertinent Findings: N/ABlood Products: Not anticipated for this procedure.Anesthetic Plan: MAC with SedationPain Management Plan: Parenteral or OralASA Class: 3Other Medical Problems: NoneChronic Beta Callie medication administered within 24 hours: N/AI have interviewed and examined the patient. I have reviewed the medicalrecord and/or the pre-anesthesia evaluation, pertinent labs, and testresults.Significant changes in the patient's condition since the History andPhysical, not otherwise documented in primary service progress notes: NoThis contains updated information obtained within 48 hours ofSurgery/Procedure.SIGNATUR E: Nick Vizcarra MD PATIENT NAME: Librado GuillenDATE: May 23, 2018 : 4:17 PM CSN: [id number] [facility] BRIEF OP NOTon 05-23-2018 BRIEF OP NOT HNO ID: [id number] thor: Tonio Teran Jr.Service: Orthopaedic SurgeryAuthor Type: PhysicianType: Brief Op NoteFiled: 05/30/2018 8:01 AMNote Text:ORTHO BRIEF OPERATIVE REPORTPATIENT NAME: Librado GuillenMRN: [id number] ID: [id number]/Procedure Date: 05/23/2018Incision/Procedure Start Time: 6:52 PMIncision Close/Procedure End Time:Surgeon(s)/Proceduralis t(s) and Manager [employer](s):Surgeon(s) and Role: * Tonio Teran Jr. - Primary * Dominguez Brown - Resident - AssistingNo Additional StaffProcedure(s): Procedure(s) (LRB):EXPLORATION OF PENETRATING WOUND RIGHT FOREARM (Right)Anesthesia: Monitored Anesthesia CarePre-Op/Pre-Procedure Diagnosis: Forearm laceration involving tendon,right, initial encounter [S51.811A, S56.921A]Post-Op/Post-Proced ure Diagnosis: Forearm laceration rightFindings: See dictated op noteEstimated Blood Loss: <50cc mlsFluids: Per anesthesiaSpecimens: NoneSpecial Medications: Ancef 2g IVDrains: NoneComplications: NonePOST OP PLAN:- Pain Control: Tramadol 50mg Q8H #9- PT/OT: Non Weight Bearing Right arm, short arm volar splint- Continue PO antibiotics- Discharge planning: Home/Self CareSIGNATURE: PATTI KolbATE: 05/23/18 : 7:19 PM PAGER/CONTACT #: [phone] [facility] NURSING PROGon 05-23-2018 Protein mass conc HNO ID: [id number] thor: Daniela (Pedro) CRUZ Welchervice: (none)Author Type: Registered NurseType: Nursing Progress NoteFiled: 05/23/2018 8:45 PMNote Text:Paged Dr. Brown multiple times to sign prescription for Tramadol. Liliane. Pt tired of waiting and decided he didn't want prescription.Prescription ripped up and discarded. [facility] HISTORY PHYSICALon 8 HISTORY PHYSICAL HNO ID: [id number] thor: Gabriela Salgado (Counter Supervisor) MeltonService: (none)Author Type: Nurse PractitionerType: HANDPFiled: 05/22/2018 11:17 AMNote Text: HISTORY AND PHYSICAL EXAMINATIONSERVICE DATE: 05/22/2018SERVICE TIME: 10:32 AMPRINOLAND [facility] PH[facility]ICIAN: Shannan Guillen MDThe patient has the following:ACTIVE PROBLEM LISTUncomplicated Severe Persistent AsthmaDyspnea On ExertionGerd (Gastroesophageal Reflux Disease)AsthmaLaceration of Right Forearm With Tendon InvolvementDog Bite of Left ForearmForearm Laceration Involving Tendon, Right, Initial EncounterSubjectiveCHIEF COMPLAINT: Dog biteHPI: This is a 72 year old male c/o above x May 18, 2018. Pt states hewas attacked by his neighbors jason. Pt states when he was attached hefell down and put his arms up in the defensive position. Pt states afterthe bite he went to the ED. Pt co bilateral forearm pain 9/10 described asa sharp and constant pain. + stiffness in right hand. Pt currently has asplint of his right forearm. Pt has a dressing on his left forearm, dryand intact, + stitches to left forarm. + stitches to right hand area. Pthad a xray done when he was taken to the ED the day of the bite. Discussedrisks and benefits with surgeon and agrees to surgical intervention.PAST MEDICAL HISTORYDiagnosis Date- Asthma Asthma- Diaphragmatic hernia without mention of obstruction or gangrene Hiatal hernia- Esophageal cancer (HCC)- Esophageal reflux Gastroesophageal reflux- Unspecified sinusitis (chronic) Chronic sinusitis- Unspecified sleep apnea Sleep apnea - uses cpap at nightPAST SURGICAL HISTORYProcedure Laterality Date- PAST SURGICAL HISTORY OF 1973 gallbladder removed- PAST SURGICAL HISTORY OF 1974 right rib removed- PAST SURGICAL HISTORY OF esophageal burnings- PAST SURGICAL HISTORY OF bronchotheroplastyFAMILY HISTORYProblem Relation Age of Onset- Heart Mother CHF- Cancer Father lung CASOCIAL HISTORY:Social History Marital status: Spouse name: Years of education: Number of children:Social History Main Topics Smoking status: Former Smoker Packs/day: 0.50 Years: 15.00 Types: Cigarettes Quit date: 12/06/1993 Smokeless tobacco: Never Used Alcohol use: No Comment: SOCIAL DRINKER 1-2 DRINKS PER MONTH Drug use: NoPrior to Admission medications as of 05/22/18 1041Medication Sig Last Dose Takingomeprazole (PRILOSEC) 20 mg capsule Take 40 mg by mouth twice daily. Taking Yesfluticasone-vilanterol (BREO ELLIPTA) 200-25 mcg/dose inhaler Inhale 1Inhalation as instructed once daily. Taking Yesalbuterol (PROVENTIL) 2.5 mg /3 mL (0.083 %) nebulizer solution Use 3 mLvia nebulizer every 4 hours. Taking YespredniSONE (DELTASONE) 10 mg tablet Take 1 tablet by mouth once daily.Patient taking differently: Take 5 mg by mouth once daily. Taking YesRanitidine HCl (ZANTAC) 300 mg tablet Take 1 tablet by mouth daily atbedtime.Patient taking differently: Take 300 mg by mouth as needed. Taking YesALBUTEROL INHALATION Inhale 2 Puffs as instructed as needed. Taking YesZYRTEC 10MG TABLET NEEDED Taking Yesbudesonide (PULMICORT) 0.5 mg/2 mL nebulizer solution Use 2 mL vianebulizer twice daily.Patient not taking: Reported on 05/21/2018 Not Takingesomeprazole (NEXIUM) 40 mg capsule Take 1 capsule by mouth once daily.Patient not taking: Reported on 05/21/2018No medication comments found.ALLERGIESNo Known AllergiesREVIEW OF SYSTEMS:PAIN ASSESSMENT: PainPain Score: 9/10Pain Location: (bilateral forearms )Description: SharpFrequency: ContinuousIntervention: MedicationGeneral: Denies fever, chills, and unexpected weight change.Neuro: Denies dizziness and headaches.Respiratory: Denies SOB and cough.+ hx of asthmaCardiovascular: Denies CP and palpitations.GI: Denies abd pain and N/V/D.: Denies dysuria and frequency.Endocrine: No history of diabetes.Hematology: Denies history of bleeding or clotting disorder.Musculoskeletal: Denies joint pain and swelling.Skin: + split to right forearm, dressing to left forearm, dry and intactObjectivePHYSICAL EXAM:VITALS:BP 147/81 Pulse 72 Temp 97.8 Resp 18 Ht 5' 10 (1.78m) Wt 256 lb(116.1kg) SpO2 97% BMI 36.73 kg/(m2).General: NAD. Cooperative.Skin: + dog bite wounds to bilateral forearms, see hpi.HEENT: Normocephalic.Cardiovascular : Normal S1 AND S2. No murmur.Lungs: CTA. No respiratory distress.Abdomen: Soft.Extremities: No edema.Neurological: Alert and oriented to person, place, and time.Pulses: radial pulses +2Assessment/Plan Forearm laceration involving tendon, rightMETS:Do moderate work around the house such as vacuuming, sweeping floors, orcarrying in groceries (3.50 METs)Do yardwork, such as raking leaves, weeding,or pushing a power mower (4.50METs)May have sob with a flight of stairs due to asthma, denies chest painANESTHESIA FINDINGS:Intubation History: No history of difficult intubationSignificant Anesthesia Considerations: NonePLANPlanned Procedure: EXPLORATION WOUND EXTREMITY PENETRATING, REPAIREXTENSOR TENDON FINGER W/O FREE GRAFTThe Following Tests/Procedures Have Been Initiated:No lab orders received or put into epicPlanned Anesthetic: MACInstructions Given to Patient:Patient given verbal and written preop instructions and voicescomprehension and compliance.SIGNATURE: Gabriela Perez APRN.CNP PATIENT NAME: Librado Smith MindyDATE: May 22, 2018 : 10:32 AM PAGER/CONTACT #: [facility] CNOVon 05-21-2018 [facility] Office Visit (AGHWG1) ----MINDYLIBRADO D ([id number]) 1945 MDate Time Provider Department05/21/18 11:15 AM TONIO TERAN JR [id number] During your visit today, we recorded the following information about you: Respiration Weight Height 12/minute 114.3 kg 1.778 [address], Tech 05/21/2018 1:21 PM SignedREVIEW OF SYSTEMS:GENERAL: Well developed, well nourished. No acute distressPAIN: Pain yesCARDIOVASCULAR: Negative for chest pain, leg swelling and palpations.MSK: Negative for joint pain, swelling, back pain, muscle pain.SKIN: Negative for lesions, rash, itching, metal sensitivityNEURO: Negative for seizure, trauma, numbness/tingling of extremities.ENDOCRINE: Negative for Diabetes Type 1 and Type 2HEMATOLOGY: Negative for excessive bleeding, clots, bleeding disorders.Tonio Teran MD 05/21/2018 1:21 PM Signed05/21/2018Name:Librado Smith DallasDate of :1945History of Chief Complaint: Librado is seeing me as a new patient today. Hecomplains of lacerations to both forearms. He was attacked by his neighbor'spit bull several days ago. He sustained multiple lacerations mostly to thedorsal aspect of bilateral forearms while he was in a defensive position. Thedog bit him several times on the dorsal aspect of the forearms. He was seen inthe emergency room the same day. His wounds were all washed out and repaired.The distal wound and his right forearm was concerning for tendon and muscleinjury. He was placed in a volar blocking splint told to follow up with metoday for definitive management. He denies any numbness or tingling in thefingers. He complains of stiffness in his right hand.PAST MEDICAL HISTORYDiagnosis Date- Asthma Asthma- Diaphragmatic hernia without mention of obstruction or gangrene Hiatal hernia- Esophageal reflux Gastroesophageal reflux- Unspecified sinusitis (chronic) Chronic sinusitis- Unspecified sleep apnea Sleep apneaPAST SURGICAL HISTORYProcedure Laterality Date- PAST SURGICAL HISTORY OF 1973 gallbladder removed- PAST SURGICAL HISTORY OF 1974 right rib removedSocial History Marital status: Spouse name: Years of education: Number of children:Social History Main Topics Smoking status: Former Smoker Packs/day: 0.50 Years: 15.00 Types: Cigarettes Quit date: 12/06/1993 Smokeless tobacco: Never Used Alcohol use: Yes Comment: SOCIAL DRINKER 1-2 DRINKS PER MONTHALLERGIESNo Known AllergiesCurrent Outpatient Prescriptions:albuterol (PROVENTIL) 2.5 mg /3 mL (0.083 %) nebulizer solution Use 3 mL vianebulizer every 4 hours. Disp: Rfl: 0predniSONE (DELTASONE) 10 mg tablet Take 1 tablet by mouth once daily. Disp: 18tablet Rfl: 0budesonide (PULMICORT) 0.5 mg/2 mL nebulizer solution Use 2 mL via nebulizertwice daily. Disp: Rfl:esomeprazole (NEXIUM) 40 mg capsule Take 1 capsule by mouth once daily. Disp:30 capsule Rfl: 6Ranitidine HCl (ZANTAC) 300 mg tablet Take 1 tablet by mouth daily at bedtime.Disp: 30 tablet Rfl: 6budesonide-formoterol (SYMBICORT) 160-4.5 mcg/actuation inhaler Inhale 2 Puffsas instructed twice daily. Disp: Rfl:TIOTROPIUM BROMIDE (SPIRIVA RESPIMAT INHALATION) Inhale as instructed. Disp:Rfl:ALBUTEROL INHALATION Inhale as instructed. Disp: Rfl:ZYRTEC 10MG TABLET NEEDED Disp: 0 Rfl: 0No current facility-administered medications for this visit.VITALSResp 12 Ht 177.8 cm (5' 10) Wt 114.3 kg (252 lb) BMI 36.16 kg/m?PHYSICAL EXAMINATION:General: he is a well developed, well nourished malePsyche: he is alert and oriented and cooperative to our examinationSkin: Skin condition is healthy without rashes or erythema.Cadiovascular: Palpable radial pulse with brisk cap refill distallyNeck: Supple with no JVDLymph: There is no palpable epitrochlearPulmonary: he has non labored breathing. There is no evidence of cyanosis.There is no clubbing of his fingernails. he has no pursed lips.Neuro: he is alert and oriented x3. There are no focal neurologic deficits. Seesensation exam below.Head: Normocephalic and atraumaticMusculoskeletal: There is Mild swelling and ecchymosis of both forearms.There are no Heberden's or Yury's nodes. There is no boutonniere orswan-neck deformity of the fingers. There is no ulnar drift of the fingers.There is no intrinsic muscular atrophy. There is a negative shoulder sign overthe thumb CMC joint. There is no dorsal subluxation of the ulnar head. He hasmultiple lacerations and bruising on the dorsal aspects of both forearms. Thereis a transverse laceration in the mid the left forearm. There are 2 transverselacerations in the right forearm one proximal and one distal. The distal woundis where the patient says the emergency room physicians saw obvious tendoninvolvement. He is able to extend his fingers and his wrist but his motion islimited secondary to pain. Sensations intact light touch distally and vascularexam is normal.Assessment:1. Dog bite of right forearm, initial encounter- APPLY FOREARM SPLINT,STATIC2. Dog bite of left forearm, initial encounter3. Laceration of right forearm with tendon involvement, initial encounter- APPLY FOREARM SPLINT,STATICPlan:I did offer him an exploration of his right forearm wound and possible repairof extensor tendons. I explained the risks, benefits and potentialcomplications of surgery. He understands these risks and agrees to proceed. Wewill schedule this at her earliest mutual convenience. We will place him in avolar blocking splint until that time.Please note: This note has been produced using speech recognition software andmay contain errors related to that system including grammar, punctuation,spelling, gender and words and phrases that may be inappropriate.Referring Provider: SELF [[id number]]Allergies As of Date: 05/21/2018(No Known Allergies)Date Reviewed: 05/21/2018Reviewed by: Tonio Teran Jr. - Fully AssessedReason for Visit: Consult [502] Cmt: r hand dog bitePrimary Visit Diagnosis:Dog bite of right forearm, initial encounter [S51.851A, W54.0XXA] Other Visit Diagnoses:Dog bite of left forearm, initial encounter [S51.852A, W54.0XXA] Laceration of right forearm with tendon involvement, initial encounter [S51.811A, S56.921A]Order(s):APPLY FOREARM SPLINT,STATIC [23236PAD] Order #: [id number] as of 05/21/2018 Sig: ALBUTEROL SULFATE 2.5 MG/3 ML* Use 3 mL via nebulizer every * PREDNISONE 10 MG TABLET Take 1 tablet by mouth once d* BUDESONIDE 0.5 MG/2 ML SUSPEN* Use 2 mL via nebulizer twice * ESOMEPRAZOLE MAGNESIUM 40 MG * Take 1 capsule by mouth once * RANITIDINE 300 MG TABLET Take 1 tablet by mouth daily * BUDESONIDE-FORMOTEROL HFA 160* Inhale 2 Puffs as instructed * SPIRIVA RESPIMAT INHALATION Inhale as instructed. ALBUTEROL INHALATION Inhale as instructed. * ZYRTEC 10 MG TABLET NEEDEDProblem List As Of Date 05/21/2018 Noted Resolved Asthma, severe persistent [J45.50] INVALID FOR*05/09/2016 Asthma [J45.909] INVALID FOR*05/09/2016 Uncomplicated severe persistent asthma [J45.50] INVALID FOR* Dyspnea on exertion [R06.09] INVALID FOR* GERD (gastroesophageal reflux disease) [K21.9] INVALID FOR* Asthma [J45.909] INVALID FOR* Laceration of right forearm with tendon involve*INVALID FOR* Dog bite of left forearm [S51.852A, W54.0XXA] INVALID FOR*Disposition: Return for surgery.Follow-up and Disposition History RecordedEncounter Number: [id number] Status:Closed by TONIO TERAN MD on 05/21/18 [facility] HOSPon 05-21-2018 HOSP Patient:Humza Guillen DMRN: Height:5' 10(1.778 m)Weight:256 lb (116.121 kg)Outpatient Medications as of 05/23/18:acetaminophen with codeine (ACETAMINOPHEN-CODEINE) 120 mg-12 mg /5 mL (5 mL)omeprazole (PRILOSEC) 20 mg capsulefluticasone-vilantero l (BREO ELLIPTA) 200-25 mcg/dose inhaleralbuterol (PROVENTIL) 2.5 mg /3 mL (0.083 %) nebulizer solutionpredniSONE (DELTASONE) 10 mg tabletbudesonide (PULMICORT) 0.5 mg/2 mL nebulizer solutionRanitidine HCl (ZANTAC) 300 mg tabletALBUTEROL INHALATIONZYRTEC 10MG TABLETAdmission/Clinic Administered Medications as of 05/23/18:ceFAZolin iv piggyback 2 g in D5W (iso-osmotic) 100 mL (ANCEF)lactated ringers infusionfentaNYL 50 mcg/mL 50 mcg injection (SUBLIMAZE)oxyCODONE IR 5 mg tab(s) (ROXICODONE)ondansetron (PF) 4 mg injection (ZOFRAN)Problem List:Uncomplicated severe persistent asthma [J45.50]Dyspnea on exertion [R06.09]GERD (gastroesophageal reflux disease) [K21.9]Asthma [J45.909]Laceration of right forearm with tendon involvement [S51.811A, S56.921A]Dog bite of left forearm [S51.852A, W54.0XXA]Forearm laceration involving tendon, right, initial encounter [S51.811A,S56.921A]Obesity, Class II, BMI 35-39.9 [E66.9]Allergies:No Known AllergiesDate Verified:05/23/18Lab ValuesNo results within the last 30 days for the following basenames: K,HCTProgress Notes ([facility]):Moy Mercado 05/21/2018 1:21 PM SignedREVIEW OF SYSTEMS:GENERAL: Well developed, well nourished. No acute distressPAIN: Pain yesCARDIOVASCULAR: Negative for chest pain, leg swelling and palpations.MSK: Negative for joint pain, swelling, back pain, muscle pain.SKIN: Negative for lesions, rash, itching, metal sensitivityNEURO: Negative for seizure, trauma, numbness/tingling of extremities.ENDOCRINE: Negative for Diabetes Type 1 and Type 2HEMATOLOGY: Negative for excessive bleeding, clots, bleeding disorders.Tonio Teran MD 05/21/2018 1:21 PM Signed05/21/2018Name:Librado Smith MillerDate of :1945History of Chief Complaint: Librado is seeing me as a new patient today. Hecomplains of lacerations to both forearms. He was attacked by his neighbor's pitbull several days ago. He sustained multiple lacerations mostly to the dorsalaspect of bilateral forearms while he was in a defensive position. The dog bithim several times on the dorsal aspect of the forearms. He was seen in theemergency room the same day. His wounds were all washed out and repaired. Thedistal wound and his right forearm was concerning for tendon and muscle injury.He was placed in a volar blocking splint told to follow up with me today fordefinitive management. He denies any numbness or tingling in the fingers. Hecomplains of stiffness in his right hand.PAST MEDICAL HISTORYDiagnosis Date- Asthma Asthma- Diaphragmatic hernia without mention of obstruction or gangrene Hiatal hernia- Esophageal reflux Gastroesophageal reflux- Unspecified sinusitis (chronic) Chronic sinusitis- Unspecified sleep apnea Sleep apneaPAST SURGICAL HISTORYProcedure Laterality Date- PAST SURGICAL HISTORY OF 1973 gallbladder removed- PAST SURGICAL HISTORY OF 1974 right rib removedSocial History Marital status: Spouse name: Years of education: Number of children:Social History Main Topics Smoking status: Former Smoker Packs/day: 0.50 Years: 15.00 Types: Cigarettes Quit date: 12/06/1993 Smokeless tobacco: Never Used Alcohol use: Yes Comment: SOCIAL DRINKER 1-2 DRINKS PER MONTHALLERGIESNo Known AllergiesCurrent Outpatient Prescriptions:albuterol (PROVENTIL) 2.5 mg /3 mL (0.083 %) nebulizer solution Use 3 mL vianebulizer every 4 hours. Disp: Rfl: 0predniSONE (DELTASONE) 10 mg tablet Take 1 tablet by mouth once daily. Disp: 18tablet Rfl: 0budesonide (PULMICORT) 0.5 mg/2 mL nebulizer solution Use 2 mL via nebulizertwice daily. Disp: Rfl:esomeprazole (NEXIUM) 40 mg capsule Take 1 capsule by mouth once daily. Disp: 30capsule Rfl: 6Ranitidine HCl (ZANTAC) 300 mg tablet Take 1 tablet by mouth daily at bedtime.Disp: 30 tablet Rfl: 6budesonide-formoterol (SYMBICORT) 160-4.5 mcg/actuation inhaler Inhale 2 Puffsas instructed twice daily. Disp: Rfl:TIOTROPIUM BROMIDE (SPIRIVA RESPIMAT INHALATION) Inhale as instructed. Disp:Rfl:ALBUTEROL INHALATION Inhale as instructed. Disp: Rfl:ZYRTEC 10MG TABLET NEEDED Disp: 0 Rfl: 0No current facility-administered medications for this visit.VITALSResp 12 Ht 177.8 cm (5' 10) Wt 114.3 kg (252 lb) BMI 36.16 kg/m?PHYSICAL EXAMINATION:General: he is a well developed, well nourished malePsyche: he is alert and oriented and cooperative to our examinationSkin: Skin condition is healthy without rashes or erythema.Cadiovascular: Palpable radial pulse with brisk cap refill distallyNeck: Supple with no JVDLymph: There is no palpable epitrochlearPulmonary: he has non labored breathing. There is no evidence of cyanosis.There is no clubbing of his fingernails. he has no pursed lips.Neuro: he is alert and oriented x3. There are no focal neurologic deficits. Seesensation exam below.Head: Normocephalic and atraumaticMusculoskeletal: There is Mild swelling and ecchymosis of both forearms.There are no Heberden's or Yury's nodes. There is no boutonniere orswan-neck deformity of the fingers. There is no ulnar drift of the fingers.There is no intrinsic muscular atrophy. There is a negative shoulder sign overthe thumb CMC joint. There is no dorsal subluxation of the ulnar head. He hasmultiple lacerations and bruising on the dorsal aspects of both forearms. Thereis a transverse laceration in the mid the left forearm. There are 2 transverselacerations in the right forearm one proximal and one distal. The distal woundis where the patient says the emergency room physicians saw obvious tendoninvolvement. He is able to extend his fingers and his wrist but his motion islimited secondary to pain. Sensations intact light touch distally and vascularexam is normal.Assessment:1. Dog bite of right forearm, initial encounter- APPLY FOREARM SPLINT,STATIC2. Dog bite of left forearm, initial encounter3. Laceration of right forearm with tendon involvement, initial encounter- APPLY FOREARM SPLINT,STATICPlan:I did offer him an exploration of his right forearm wound and possible repair ofextensor tendons. I explained the risks, benefits and potential complications ofsurgery. He understands these risks and agrees to proceed. We will schedule thisat her earliest mutual convenience. We will place him in a volar blocking splintuntil that time.Please note: This note has been produced using speech recognition software andmay contain errors related to that system including grammar, punctuation,spelling, gender and words and phrases that may be inappropriate. [facility] PROGRESSon 05-21-2018 Protein mass conc HNO ID: [id number] thor: Tonio Teran Jr.Service: (none)Author Type: PhysicianType: Progress NotesFiled: 05/21/2018 1:21 PMNote Text:05/21/2018Name:Librado GuillenDate of :1945History of Chief Complaint: Librado is seeing me as a new patient today. Hecomplains of lacerations to both forearms. He was attacked by hisAll About Baby[employer]s pit bull several days ago. He sustained multiple lacerationsmostly to the dorsal aspect of bilateral forearms while he was in adefensive position. The dog bit him several times on the dorsal aspect ofthe forearms. He was seen in the emergency room the same day. His woundswere all washed out and repaired. The distal wound and his right forearmwas concerning for tendon and muscle injury. He was placed in a volarblocking splint told to follow up with me today for definitive management.He denies any numbness or tingling in the fingers. He complains ofstiffness in his right hand.PAST MEDICAL HISTORYDiagnosis Date- Asthma Asthma- Diaphragmatic hernia without mention of obstruction or gangrene Hiatal hernia- Esophageal reflux Gastroesophageal reflux- Unspecified sinusitis (chronic) Chronic sinusitis- Unspecified sleep apnea Sleep apneaPAST SURGICAL HISTORYProcedure Laterality Date- PAST SURGICAL HISTORY OF 1973 gallbladder removed- PAST SURGICAL HISTORY OF 1974 right rib removedSocial History Marital status: Spouse name: Years of education: Number of children:Social History Main Topics Smoking status: Former Smoker Packs/day: 0.50 Years: 15.00 Types: Cigarettes Quit date: 12/06/1993 Smokeless tobacco: Never Used Alcohol use: Yes Comment: SOCIAL DRINKER 1-2 DRINKS PER MONTHALLERGIESNo Known AllergiesCurrent Outpatient Prescriptions:albuterol (PROVENTIL) 2.5 mg /3 mL (0.083 %) nebulizer solution Use 3 mLvia nebulizer every 4 hours. Disp: Rfl: 0predniSONE (DELTASONE) 10 mg tablet Take 1 tablet by mouth once daily.Disp: 18 tablet Rfl: 0budesonide (PULMICORT) 0.5 mg/2 mL nebulizer solution Use 2 mL vianebulizer twice daily. Disp: Rfl:esomeprazole (NEXIUM) 40 mg capsule Take 1 capsule by mouth once daily.Disp: 30 capsule Rfl: 6Ranitidine HCl (ZANTAC) 300 mg tablet Take 1 tablet by mouth daily atbedtime. Disp: 30 tablet Rfl: 6budesonide-formoterol (SYMBICORT) 160-4.5 mcg/actuation inhaler Inhale 2Puffs as instructed twice daily. Disp: Rfl:TIOTROPIUM BROMIDE (SPIRIVA RESPIMAT INHALATION) Inhale as instructed.Disp: Rfl:ALBUTEROL INHALATION Inhale as instructed. Disp: Rfl:ZYRTEC 10MG TABLET NEEDED Disp: 0 Rfl: 0No current facility-administered medications for this visit.VITALSResp 12 Ht 177.8 cm (5' 10) Wt 114.3 kg (252 lb) BMI 36.16 kg/m?PHYSICAL EXAMINATION:General: he is a well developed, well nourished malePsyche: he is alert and oriented and cooperative to our examinationSkin: Skin condition is healthy without rashes or erythema.Cadiovascular: Palpable radial pulse with brisk cap refill distallyNeck: Supple with no JVDLymph: There is no palpable epitrochlearPulmonary: he has non labored breathing. There is no evidence ofcyanosis. There is no clubbing of his fingernails. he has no pursed lips.Neuro: he is alert and oriented x3. There are no focal neurologicdeficits. See sensation exam below.Head: Normocephalic and atraumaticMusculoskeletal: There is Mild swelling and ecchymosis of both forearms. There are no Heberden's or Yury's nodes. There is no boutonniere orswan-neck deformity of the fingers. There is no ulnar drift of thefingers. There is no intrinsic muscular atrophy. There is a negativeshoulder sign over the thumb CMC joint. There is no dorsal subluxation ofthe ulnar head. He has multiple lacerations and bruising on the dorsalaspects of both forearms. There is a transverse laceration in the mid theleft forearm. There are 2 transverse lacerations in the right forearm oneproximal and one distal. The distal [facility]. He is able toextend his fingers and his wrist but his motion is limited secondary topain. Sensations intact light touch distally and vascular exam is normal.Assessment:1. Dog bite of right forearm, initial encounter- APPLY FOREARM SPLINT,STATIC2. Dog bite of left forearm, initial encounter3. Laceration of right forearm with tendon involvement, initial encounter- APPLY FOREARM SPLINT,STATICPlan:I did offer him an exploration of his right forearm wound and possiblerepair of extensor tendons. I explained the risks, benefits and potentialcomplications of surgery. He understands these risks and agrees toproceed. We will schedule this at her earliest mutual convenience. We willplace him in a volar blocking splint until that time.Please note: This note has been produced using speech recognition softwareand may contain errors related to that system including grammar,punctuation, spelling, gender and words and phrases that may beinappropriate. [facility] Protein mass conc HNO ID: [id number] thor: Abraham (Tech) PostService: (none)Author Type: TechnicianType: Progress NotesFiled: 05/21/2018 1:21 PMNote Text:REVIEW OF SYSTEMS:GENERAL: Well developed, well nourished. No acute distressPAIN: Pain yesCARDIOVASCULAR: Negative for chest pain, leg swelling and palpations.MSK: Negative for joint pain, swelling, back pain, muscle pain.SKIN: Negative for lesions, rash, itching, metal sensitivityNEURO: Negative for seizure, trauma, numbness/tingling of extremities.ENDOCRINE: Negative for Diabetes Type 1 and Type 2HEMATOLOGY: Negative for excessive bleeding, clots, bleeding disorders. [facility] Culture, urine Bacteria identified Cx Nom (U) Culture exhibits no growth. [facility] Work Phone: Vital Signs Date Time Vital Sign Value Performing Clinician Facility 05-31-2025 11:55-0400 Body temperature 97.9 [degF] Jaycob Yang MD Work Phone: [facility] 05-31-2025 11:55-0400 Diastolic blood pressure 77 mm[Hg] Jaycob Yang MD Work Phone: [facility] 05-31-2025 11:55-0400 Heart rate 74 /min Jaycob Yang MD Work Phone: [facility] 05-31-2025 11:55-0400 Respiratory rate 16 /min Jaycob Yang MD Work Phone: [facility] 05-31-2025 11:55-0400 SaO2% (BldA) [Mass fraction] 99 % Jaycob Yang MD Work Phone: [facility] 05-31-2025 11:55-0400 Systolic blood pressure 138 mm[Hg] Jaycob Yang MD Work Phone: [facility] 05-31-2025 07:25-0400 Body height 177.8 cm Jaycob Yang MD Work Phone: [phone] [address] 05-31-2025 07:25-0400 Body mass index (BMI) [Ratio] 35.3 kg/m2 Jaycob Yang MD Work Phone: [facility] 05-31-2025 07:25-0400 Body weight 111.76 kg Jaycob Yang MD Work Phone: [phone])[phone] [address] 05-29-2025 13:13-0400 Body temperature 98.1 [degF] Jaycob Yang MD Work Phone: 1(235)[phone] [place] [address] 05-29-2025 13:13-0400 Diastolic blood pressure 78 mm[Hg] Jaycob Yang MD Work Phone: [facility] 05-29-2025 13:13-0400 Heart rate 81 /min Jaycob Yang MD Work Phone: [facility] 05-29-2025 13:13-0400 Respiratory rate 17 /min Jaycob Yang MD Work Phone: [facility] 05-29-2025 13:13-0400 SaO2% (BldA) [Mass fraction] 97 % Jaycob Yang MD Work Phone: [facility] 05-29-2025 13:13-0400 Systolic blood pressure 122 mm[Hg] Jaycob Yang MD Work Phone: [facility] 03-08-2025 18:45-0400 Body temperature 97 [degF] Jaycob Yang MD Work Phone: [facility] 03-08-2025 18:45-0400 Diastolic blood pressure 76 mm[Hg] Jaycob Yang MD Work Phone: [facility] 03-08-2025 18:45-0400 Heart rate 76 /min Jaycob Yang MD Work Phone: [facility] 03-08-2025 18:45-0400 Respiratory rate 16 /min Jaycob Yang MD Work Phone: [facility] 03-08-2025 18:45-0400 SaO2% (BldA) [Mass fraction] 98 % Jaycob Yang MD Work Phone: [facility] 03-08-2025 18:45-0400 Systolic blood pressure 132 mm[Hg] Jaycob Yang MD Work Phone: [facility] 03-08-2025 16:10-0400 Body height 177.8 cm Jaycob Yang MD Work Phone: [facility] 03-08-2025 16:10-0400 Body mass index (BMI) [Ratio] 35.3 kg/m2 Jaycob Yang MD Work Phone: [facility] 03-08-2025 16:10-0400 Body weight 111.6 kg Jaycob Yang MD Work Phone: [facility] 02-03-2025 14:31-0400 Body height 177.8 cm Jaycob Yang MD Work Phone: [facility] 02-03-2025 14:31-0400 Body mass index (BMI) [Ratio] 36.1 kg/m2 Jaycob Yang MD Work Phone: [facility] 02-03-2025 14:31-0400 Body temperature 98 [degF] Jaycob Yang MD Work Phone: [facility] 02-03-2025 14:31-0400 Body weight 114.3 kg Jaycob Yang MD Work Phone: [facility] 02-03-2025 14:31-0400 Diastolic blood pressure 72 mm[Hg] Jaycob Yang MD Work Phone: [facility] 02-03-2025 14:31-0400 Heart rate 74 /min Jaycob Yang MD Work Phone: [facility] 02-03-2025 14:31-0400 Respiratory rate 14 /min Jaycob Yang MD Work Phone: [facility] 02-03-2025 14:31-0400 SaO2% (BldA) [Mass fraction] 98 % Jaycob Yang MD Work Phone: [facility] 02-03-2025 14:31-0400 Systolic blood pressure 192 mm[Hg] Jaycob Yang MD Work Phone: [facility] 08-17-2024 11:07-0400 Body height 177.8 cm Malou Carsonir [employer] Work Phone: [facility] 08-17-2024 11:07-0400 Body mass index (BMI) [Ratio] 37.19 kg/m2 Malou Donovan [employer] Work Phone: [facility] 08-17-2024 11:07-0400 Body temperature 97.11 [degF] Malou Donovan [employer] Work Phone: [facility] 08-17-2024 11:07-0400 Body weight 117.57 kg Malou Donovan [employer] Work Phone: [facility] 08-17-2024 11:07-0400 Diastolic blood pressure 80 mm[Hg] Malou Donovan [employer] Work Phone: [facility] 08-17-2024 11:07-0400 Heart rate 84 /min Malou Donovan [employer] Work Phone: [facility] 08-17-2024 11:07-0400 SaO2% (BldA) [Mass fraction] 97 % Malou Donovan [employer] Work Phone: [facility] 08-17-2024 11:07-0400 Systolic blood pressure 122 mm[Hg] Malou Donovan [employer] Work Phone: [facility] 12-09-2023 16:36-0500 Diastolic blood pressure 76 mm[Hg] [facility] 12-09-2023 16:36-0500 Systolic blood pressure 140 mm[Hg] [facility] 12-09-2023 14:07-0500 Heart rate 80 /min [facility] 12-09-2023 14:07-0500 SaO2% (BldA) [Mass fraction] 98 % [facility] 12-09-2023 13:29-0500 Body height 178 cm [facility] 12-09-2023 13:29-0500 Body mass index (BMI) [Ratio] 35.3 kg/m2 [facility] 12-09-2023 13:29-0500 Body temperature 96.7 [degF] [facility] 12-09-2023 13:29-0500 Body weight 112.03 kg [facility] 12-09-2023 13:29-0500 Respiratory rate 22 /min [facility] 01-07-2023 15:42-0500 Diastolic blood pressure 69 mm[Hg] [facility] 01-07-2023 15:42-0500 Systolic blood pressure 147 mm[Hg] [facility] 01-07-2023 13:29-0500 Heart rate 76 /min [facility] 01-07-2023 13:29-0500 Respiratory rate 15 /min [facility] 01-07-2023 13:29-0500 SaO2% (BldA) [Mass fraction] 98 % [facility] 01-07-2023 12:30-0500 Body height 177.8 cm [facility] 01-07-2023 12:30-0500 Body mass index (BMI) [Ratio] 34.2 kg/m2 [facility] 01-07-2023 12:30-0500 Body temperature 97.5 [degF] [facility] 01-07-2023 12:30-0500 Body weight 108.4 kg [facility] 10-12-2022 21:45-0500 Diastolic blood pressure 71 mm[Hg] [facility] 10-12-2022 21:45-0500 Heart rate 70 /min [facility] 10-12-2022 21:45-0500 Respiratory rate 12 /min [facility] 10-12-2022 21:45-0500 SaO2% (BldA) [Mass fraction] 98 % [facility] 10-12-2022 21:45-0500 Systolic blood pressure 121 mm[Hg] [facility] 10-12-2022 18:42-0500 Body height 177.8 cm [facility] Work Phone: 10-12-2022 18:42-0500 Body mass index (BMI) [Ratio] 36.3 kg/m2 [facility] 10-12-2022 18:42-0500 Body temperature 97.1 [degF] [facility] 10-12-2022 18:42-0500 Body weight 114.89 kg [facility] 12-26-2021 12:02-0500 Body height 177.8 cm [facility] Work Phone: 12-26-2021 12:02-0500 Body mass index (BMI) [Ratio] 35.9 kg/m2 [facility] Work Phone: 12-26-2021 12:02-0500 Body temperature 96.8 [degF] [facility] Work Phone: 12-26-2021 12:02-0500 Body weight 113.39 kg [facility] [facility] Work Phone: 12-26-2021 12:02-0500 Diastolic blood pressure 72 mm[Hg] [facility] Work Phone: 12-26-2021 12:02-0500 Heart rate 99 /min [facility] Work Phone: 12-26-2021 12:02-0500 Respiratory rate 18 /min [facility] Work Phone: 12-26-2021 12:02-0500 SaO2% (BldA) [Mass fraction] 99 % [facility] Work Phone: 12-26-2021 12:02-0500 Systolic blood pressure 186 mm[Hg] [facility] Work Phone: 11-26-2021 12:37-0500 Diastolic blood pressure 75 mm[Hg] [facility] Work Phone: 11-26-2021 12:37-0500 Heart rate 74 /min [facility] Work Phone: 11-26-2021 12:37-0500 Respiratory rate 10 /min [facility] Work Phone: 11-26-2021 12:37-0500 SaO2% (BldA) [Mass fraction] 97 % [facility] Work Phone: 11-26-2021 12:37-0500 Systolic blood pressure 149 mm[Hg] [facility] Work Phone: 11-26-2021 08:50-0500 Body temperature 97.9 [degF] [facility] Work Phone: 11-26-2021 08:48-0500 Body mass index (BMI) [Ratio] 35.6 kg/m2 [facility] Work Phone: 11-26-2021 08:48-0500 Body weight 112.49 kg [facility] Work Phone: Encounters Encounter Date Encounter Type Care Provider Facility Start: 06-08-2025 Emergency department patient visit Barrington Sanchez Facility:[facility] Start: 06-04-2025 ambulatory Jaycob Yang Facility:[facility] Start: 05-31-2025 End: 05-31-2025 Emergency department patient visit Jaycob Yang MD Work Phone: -Emergency Department Work Phone: Start: 05-29-2025 End: 05-29-2025 Patient encounter procedure Lashawn Castillo WEB CONTENT MANAGER[facility]C [facility] Work Phone: Start: 05-29-2025 End: 05-29-2025 ambulatory Jaycob Yang MD Work Phone: [facility] Start: 05-27-2025 End: 05-27-2025 ambulatory Jaycob Yang MD Work Phone: -Laboratory [facility] Start: 05-27-2025 End: 05-27-[address] Jaycob Yang MD -Laboratory [facility] Start: 05-27-2025 End: 05-27-2025 ambulatory Jaycob Yang Facility:[facility] Start: 05-19-2025 End: 05-19-2025 ambulatory Jaycob Yang MD Work Phone: -Laboratory Specimen Start: 05-19-2025 End: 05-19-2025 Patient encounter procedure Barrington MARIA -Laboratory Specimen Work Phone: Start: 05-19-2025 End: 05-19-2025 ambulatory Barrington Holguin Facility:[facility] Start: 03-08-2025 Non-patient / Non-visit Geovani Cristobal nd, DO [facility] Start: 03-08-2025 End: 03-08-2025 Admission to same day surgery center Geovani Ramirez DO -Covering Machine Operator [facility] Work Phone: Start: 03-08-2025 End: 03-08-2025 ambulatory Jaycob Yang MD Work Phone: [facility] Work Phone: Start: 02-03-2025 End: 02-03-2025 Emergency department patient visit GREG CADENA DO Facility:[facility] Start: 11-03-2024 End: 11-03-[address] 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 with complication (HCC) Start: 07-02-2024 ambulatory [facility] Facility:[facility] Start: 06-30-2024 End: 06-30-2024 ambulatory [facility] Facility:[facility] Start: 12-09-2023 End: 12-09-2023 Emergency department patient visit [facility]-Emergency Department Work Phone: Start: 04-30-2023 Non-patient / Non-visit DO Nestor Corea Work Phone: [facility] Start: 04-30-2023 Patient encounter procedure DO Marlene Corea Work Phone: [facility]-Cardiovascula r Services Start: 04-25-2023 End: 04-25-2023 ambulatory DO Marlene Corea Work Phone: [facility] Work Phone: Start: 04-25-2023 End: 04-25-2023 Patient encounter procedure DO Marlene Corea Work Phone: [facility] Start: 01-07-2023 End: 01-07-2023 Emergency department patient visit [facility]-Emergency Department Start: 10-12-2022 End: 10-12-2022 Emergency department patient visit [facility]-Emergency Department Start: 08-08-2022 End: 08-08-2022 ambulatory [facility] Work Phone: Start: 08-08-2022 End: 08-08-2022 Patient encounter procedure [facility]-Laboratory, Specimen Start: 03-27-2022 End: 03-27-2022 ambulatory DOMINIQUE Slade [facility] Start: 03-16-2022 End: 03-16-2022 ambulatory DOMINIQUE Slade [facility] Start: 02-21-2022 End: 02-21-2022 ambulatory DOMINIQUE Slade [facility] Start: 02-16-2022 End: 02-16-2022 Patient encounter procedure [facility]-Radiology, [facility] Start: 01-31-2022 End: 01-31-2022 Patient encounter procedure [facility]-Laboratory, Lupe Cobian Start: 12-26-2021 End: 12-26-2021 Emergency department patient visit [facility]-Emergency Department Start: 11-26-2021 End: 11-26-2021 Emergency department patient visit [facility]-Emergency Department Start: 11-05-2018 End: 11-05-2018 Patient encounter procedure TONIO TERAN [facility] Start: 10-23-2018 End: 10-23-2018 Evaluation and management of inpatient TONIO TERAN Facility:[facility] Start: 10-23-2018 End: 10-23-2018 Patient encounter procedure TONIO TERAN [facility] Start: 08-15-2018 End: 08-15-2018 Patient encounter procedure TONIO TERAN [facility] Start: 07-08-2018 End: 07-08-2018 Patient encounter procedure TONIO TERAN [facility] Start: 06-10-2018 End: 06-10-2018 Patient encounter procedure TONIO TERAN [facility] Start: 06-06-2018 Patient encounter procedure TONIO TERAN Facility:[facility] Start: 05-23-2018 End: 05-23-2018 Evaluation and management of inpatient TONIO TERAN Facility:[facility] Start: 05-23-2018 End: 05-23-2018 Patient encounter procedure TONIO TERAN [facility] Start: 05-22-2018 End: 05-22-2018 Patient encounter procedure TONIO TERAN [facility] Start: 05-21-2018 End: 05-21-2018 Patient encounter procedure TONIO ANIKA TERAN [facility] Procedures Date Procedure Procedure Detail Performing Clinician Start: 05-31-2025 Urnls dip stick/tablet reagent auto microscopy Jaycob Yang MD Work Phone: Start: 05-31-2025 Estimated creatinine clearance Jaycob mcdonough MD Work Phone: Start: 05-19-2025 Bacteria identification test Jaycob Yang MD Work Phone: Start: 03-08-2025 Esophagogastroduodenoscopy Jaycob Smith Work Phone: Start: 11-03-2024 Urine culture Jaycob Yang MD Work Phone: Start: 12-09-2023 Plain chest X-ray Start: 01-07-2023 Plain chest X-ray Start: 10-12-2022 Plain chest X-ray Start: 02-16-2022 Radiography of esophagus Start: 01-31-2022 Plain chest X-ray Start: 11-26-2021 SARS-CoV-2 Antigen (Rapid) Start: 11-26-2021 CT angiography of chest with contrast Start: 11-26-2021 Plain chest X-ray Start: 05-04-2021 Ecg routine ecg w/least 12 lds i&r only Start: 11-05-2018 History of decompression of median nerve S/P carpal tunnel release Malou Villagomez APRN.PLASTIC SHAPER Work Phone: Urine culture Plan of Treatment Date Care Activity Detail Author Start: 01-24-2032 Urine microalbumin profile DTaP,Tdap,Td Vaccine (3 - Td or Tdap) [facility] Start: 05-31-2025 [facility] Start: 03-08-2025 Hospital admission, emergency, from emergency room, medical nature [facility] Start: 03-08-2025 Egd flexible foreign body removal EGD REMOVE FOREIGN BODY [facility] Start: 03-08-2025 Patient discharge [facility] Start: 07-26-2024 Covid-19 Vaccine () Covid-19 Vaccine () [facility] Start: 07-26-2024 Influenza vaccination Influenza Vacc ine (#1) [facility] Start: 05-04-2024 Diabetes Screening Diabetes Screenin g [facility] Start: 12-10-2023 [facility] Start: 12-09-2023 [facility] Start: 12-09-2023 [facility] Start: 11-25-2023 Advance Directive Discussion Advance Directive Discussion [facility] Start: 10-12-2022 [facility] Start: 2022 RSV Vaccine (1 - 1-d ose 75+ series) RSV Vaccine (1 - 1-dose 75+ series) [facility] Start: 12-26-2021 Smpl repair scalp/neck/ax/genit/trunk 2.6-7.5cm RPR S/N/AX/GEN/TRNK2.6-7.5 CM [facility] Work Phone: Start: 1963 Annual PCP Team Teacher'S Assistant janneth Disease Visit Annual PCP Team Chronic Disease Visit [facility] Start: 1963 Depression Screening Depression Scre ening [facility] Start: 1963 Hepatitis C screening Hepatitis C Sc [facility] Patient Education [facility] Work Phone: Patient referral [facility] Work Phone: Zinc [Mass/volume] i n Serum or Plasma [facility] Immunizations Immunization Date Immunization Notes Care Provider Fa alondra 09-11-2023 influenza virus vacc ine, unspecified formulation Malou Villagomez TESTER EQUIPMENT.PLASTIC SHAPER Work Phone: [facility] 12-26-2021 tetanus toxoid, redu joanne diphtheria toxoid, and acellular pertussis vaccine, adsorbed [facility] 02-01-2021 Covid (Pfizer) [facility] 01-14-2021 Covid (Pfizer) [facility] 09-03-2015 influenza, high dose seasonal, preservative-free Malou Villagomez TESTER EQUIPMENT.PLASTIC SHAPER Work Phone: [facility] 11-25-2014 pneumococcal polysaccharide vaccine, 23 valent Malou Villagomez TESTER EQUIPMENT.PLASTIC SHAPER Work Phone: [facility] 08-25-2013 Pneumococcal Vaccine [facility] Work Phone: 08-25-2013 pneumococcal vaccine , unspecified formulation [facility] Payers Date Payer Category Payer Self-pay [id number] 2025 Private Health Insurance [id number] 2025 Unknown [id number] 2024 Private Health Insurance [id number] 2024 Self-pay [id number] [address] [facility] [employer] [id number] 2019-Present [phone] [address] [place] [address] PPO [id number] 2019 Unknown [id number] 1945 Unknown [id number] 2.840.1.976166.3.579. 2.278 1945 Unknown [id number] 2.840.1.766601.3.579. 2.278 1945 Unknown [id number] 2.16.840.1.582064.3.579. 2.278 1945 Unknown [id number] 2.16.840.1.360270.3.579. 2.278 1945 Unknown [id number] 2.16.840.1.531598.3.579. 2.278 1945 Unknown [id number] 2.16.840.1.371352.3.579. 2.278 1945 Unknown [id number] 2.16.840.1.293265.3.579. 2.278 1945 Unknown [id number] 2.16.840.1.142452.3.579. 2.278 1947 Unknown [id number] 2.16.840.1.528773.3.579. 2.278 1947 Unknown [id number] 2.16.840.1.973717.3.579. 2.278 1947 Unknown [id number] 2.16.840.1.872578.3.579. 2.651 1947 Unknown [id number] 2.16.840.1.230653.3.579. 2.651 1947 Unknown [id number] 2.16.840.1.796498.3.579. 2.651 1945 Unknown [id number] 2.840.1.949696.3.579. 2.627 Unknown [id number] Unknown [id number] 2.840.1.514665.3.579. 2.462 Unknown [id number] 2.16840.1.791966.3.579. 2.462 Unknown [id number] 2.16.840.1.939645.3.579. 2.462 Unknown [id number] 2.16.840.1.561424.3.579. 2.462 Unknown [id number] 2.16840.1.050902.3.579. 2.462 Unknown [id number] 2.16840.1.049742.3.579. 2.462 Unknown [id number] 2.16.840.1.533342.3.579. 2.462 Unknown [id number] 2.16.840.1.799398.3.579. 2.462 Unknown [id number] 2.16.840.1.580541.3.579. 2.462 Unknown [id number] 2.16.840.1.784015.3.579. 2.462 Unknown [id number] 2.16.840.1.893501.3.579. 2.462 Unknown [id number] 2.16.840.1.937739.3.579. 2.462 Unknown [id number] 2.16.840.1.014964.3.579. 2.462 Social History Date Type Detail Facility Start: 12-26-2021 End: 12-09-2023 Tobacco smoking status MOIS Unknown if ever smoked [facility] Start: 12-25-2019 None [facility] Start: 12-25-2019 Alone [facility] Start: 1945 Sex Assigned At Male [facility] Start: 08-17-2024 End: 05-31-2025 Tobacco smoking status MOIS Ex-smoker [facility] Start: 12-06-1978 End: 12-06-1993 History of tobacco use Current smoker [facility] Start: 12-06-1978 End: 12-06-1993 History of tobacco use Cigarette Smoker [facility] Start: 08-17-2024 Cigarettes smoked current (pack per day) - Reported 0.5 [facility] Start: 08-17-2024 Tobacco use and exposure Smokeless tobacco non-user [facility] Start: 08-17-2024 Alcoholic beverage intake Current drinker of alcohol (finding) [facility] Start: 08-17-2024 Tobacco use panel [facility] National Score (1-10 0), lower number is lower risk 71 [facility] Start: 1945 Sex assigned at Not on file C [facility] Start: 02-03-2025 End: 03-08-2025 Sex Male (finding) [facility] Goals Date Patient Goal Desired Activity /State Mental Status Date Assessment Result Facility 05-31-2025 Cognitive function Level Of Cons ciousness Awake;Alert;Appropriate;Follow s Commands [facility] Work Phone: 03-08-2025 Cognitive function Voice/Name [facility] Work Phone: 12-09-2023 Cognitive function Level Of Cons ciousness Awake;Alert;Appropriate;Follow s Commands [facility] Work Phone: 01-07-2023 Cognitive function Voice/Name [facility] Work Phone: 10-12-2022 Cognitive function Voice/Name [facility] Work Phone: 11-26-2021 Cognitive function Voice/Name [facility] Work Phone: Clinical Notes 08-17-2024 to 05-31-2025 Note Date & Type Note Facility 05-31-2025 Discharge summary [facility] 03-08-2025 Consult note Note Date/Time March 08, 2025 4:37pm [facility] Medical Records Department [address] [place] [address] Pre-Anesthesia Evaluation 03/08/25 1637 MR#: [id number] Acct: [id number] Name: LIBRADO GUILLEN Rep #:[id number] : 1945 79 From: Barry Kline MD PCP: Dr. Jaycob Yang MD Status:REG SD C Y Race: C Location: [place] [address] ASA Classification* ASA Classification ASA Classification: 2 and E Assessment & Plan Anesthesia* Anesthesia Assessment Anesthesia Assessment: Discussed sedation and/or anesthesia options, risks, benefits, and alternatives with patient/parents/legal guardian/POA. Questions invited. The patient/parents/legal guardian/POA seems to understand and agrees to proceedwith anesthesia plan. Reviewed the physical assessment, medical history, allergy history and patient home medications list prior to surgery/procedure/anesthetic and documented any changes. Performed airway and anesthesia risk assessments. Anesthesia Type Anesthesia Type: MAC Anesthesia Focused Assessment* Temperature: 98.7 F Pulse Rate: 78 Blood Pressure: 158/68 Respiratory Rate: 16 Pulse Ox: 99 Airway Assessment Mouth opens: >3 cm Mallampati Score: II Focused Labs Anesthesia Preop lab: CBC WBC 9.5 K/mm3 (4.4-11.0) 06/03/24 18:46 06/03/24 RBC 4.74 M/mm3 (4.6-6.2) 06/03/24 18:46 06/03/24 Hgb 14.3 g/dL (13.0-16.5) 06/03/24 18:46 06/03/24 Hct 42.7 % (40-54) 06/03/24 18:46 06/03/24 Plt Count 211 K/mm3 (150-450) 06/03/24 18:46 06/03/24 CHEMISTRY Potassium 4.2 mmol/L (3.5-5.1) 06/03/24 18:46 06/03/24 Sodium 140 mmol/L (136-145) 06/03/24 18:46 06/03/24 Magnesium 2.5 mg/dL (1.6-2.6) 04/25/23 15:12 04/25/23 BUN 18 mg/dL (7-18) 06/03/24 18:46 06/03/24 Creatinine 1.20 mg/dL (0.70-1.30) 06/03/24 18:46 06/03/24 Glucose 86 mg/dL (74-106) 06/03/24 18:46 06/03/24 TSH 1.10 uIU/mL (0.358-3.74) 04/25/23 15:12 COAG PT 13.2 SECONDS (11.7-14.9) 06/03/24 18:46 Pre-Assessment Diagnosis/Proposed Procedure Planned Operative Procedure(s): EGD, remove FB Esophagous Anesthesia History 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 When Was Last Pacemaker Check QUESTION #4 FULL TEXT: You/Your Family Experience fever (hyperthermia) with Anesthesia Last Oral Intake Last Oral intake: Last Oral Intake NPO since 13:30 03/08/25 16:10 Meds taken in AM with sips of water? Meds patient instructed to take am of surgery PONV PONV - personal lines sales executive: PONV - personal lines sales executive Female HX of Motion Sickness HX of N/V After Surgery Non-Smoker Duration of Surgery greater than 60 minutes Number of Risk Factors PONV Score Height & Weight Height & Weight: Anesthesia: Height & Weight Height 5 ft 10 in 03/08/25 16:10 Weight: 111.6 kg 03/08/25 16:10 Body Mass Index (BMI) 35.3 03/08/25 16:10 Respiratory Assessment Respiratory Assessment - personal lines sales executive: Respiratory Tract Infection Hx - personal lines sales executive Hx Respiratory Tract Infection No 03/08/25 16:10 STOP Sleep Apnea STOP Sleep Apnea - personal lines sales executive: STOP Sleep Apnea - personal lines sales executive Hx Hypertension No 04/19/21 22:38 Hx Sleep Apnea Yes 03/08/25 16:10 CPAP Yes 03/08/25 16:10 BIPAP No 03/08/25 16:10 Do you snore loudly (louder than talking or can be heard Do you often feel tired/ fatigued/ sleepy during daytime? Has anyone observed you stop breathing during sleep? STOP Results Positive 03/08/25 16:10 QUESTION #5 FULL TEXT : Do you snore loudly (louder than talking or can be heard through closed doors)? 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 Specify any problems Hx of Preganancy in last 3 Months Nurse Filling Out Transfusion & Questions: Date: Time: Patient unable to answer at this time (ie. confused, unrespo /Reproduction History /Reproductive History - personal lines sales executive: /Reproductive Hx- personal lines sales executive Hx Now No 03/08/25 16:10 Gestational Age (in weeks): EDC: Hx Hx Para Hx Section SAB No 03/08/25 16:10 PFSH Medical History Zenkers diverticulum BPH (benign prostatic hyperplasia) History of DVT (deep vein thrombosis) GERD (gastroesophageal reflux disease) Former smoker Sleep apnea Chest pain Asthma IBS (irritable bowel syndrome) Crohn's disease Home Medications ?Medication ?Instructions ?Recorded ?Last Taken ?Type fluticasone furoate 200 1 ea IH DAILY 04/04/1904/19 09:00 History mcg-vilanterol 25 mcg/dose inhalation powder (Breo Ellipta) albuterol sulfate 2.5 mg/3 mL 1 puff inhalation Q4H LA N PRN Sob 11/30/19 Unknown History (0.083 %) solution for nebulization &/Or Wheezing bisacodyl 5 mg tablet 10 mg PO DAILY constipation 04/19/21 Unknown History mesalamine 400 mg capsule,delayed 2,400 mg PO DAILY Cr ohns 04/19/21 04/19/21 History release omeprazole 40 mg capsule,delayed 40 mg PO BID reflux 0 04/19/21 04/19/21 16:00 History release polyethylene glycol 3350 17 gram 17 g PO DAILY constip ation 04/19/21 04/19/21 History oral powder packet hydrocodone-acetaminophen 5-325mg 1 tab PO Q6H PRN david n 3 days #12 03/29/22 Unknown Rx 5mg-325mg tabs Allergy/AdvReac Type Severity Reaction Status Date / Time adalimumab (From Humira) Allergy itching Verified 03/08/25 14:11 Family History Mother CHF (congestive heart failure) Father Cancer unsure Surgical History History of colonoscopy (~06/2021) Hx of cholecystectomy Social History Smoking Status: Former smoker Review of Systems (Anesthesia) ROS Narrative System reviewed and no additional complaints, except as documented. 03/08/25 6327 <Electronically signed by Barry Kline MD > Date _ Barry Garciaignjuan alberto Signature: Date CC: ~ Signed [facility] Work Phone: 1(144) 496-359404-14-2025 Evaluation note* Diagnosis Onset Date Resolution Status Admit Date Esophageal obstruction due t o food impaction acute March 08, 2025 4:31pm [facility] Work Phone: 1(603) 700-865204-14-2025 Evaluation note* Diagnosis Onset Date Resolution Status Admit Date Esophageal obstruction due t o food impaction acute March 08, 2025 4:31pm Oral thrush acute May 29 1:02pm [facility] Work Phone: 1(371) 946-494304-14-2025 Consult note [facility] Medical Records Department [address] [place] [id number] Anesthesia Postop Eval I 03/08/25 1829 MR#: [id number] Acct: [id number] Name: LIBRADO GUILLEN Rep #:[id number] : 1945 79 From: Barry Kline MD PCP: Dr. Jaycob Yang MD Status:REG SD C Y Race: C Location: [place] [address] Anesthesia: Postop Eval I Current Vital Signs Temperature: 97.6 F Pulse Rate: 82 Blood Pressure: 131/67 Respiratory Rate: 16 Pulse Ox: 98 Oxygen Delivery Method: Room Air Assessment Airway patent: Yes Spontaneous unlabored respirations: Yes Mental status: Awake and Calm nausea: No Vomiting: No Anesthesia Complication: No Fluid Hydration Crystalloid volume administer (ml): 10 Total IV fluid infused: 10 Progress Note Anesthesia document: Postop Eval 1 completed: Yes 03/08/25 183 > Date _ Barry Zhou Signature: Date CC: ~ Signed [facility]04-14-2025 Consult note [facility] Medical Records Department [address] [place] [address] Anesthesia Postop Eval II 03/08/251829 MR#: [id number] Acct: [id number] Name: LIBRADO GUILLEN Rep #:[id number] : 1945 79 From: Barry Kline MD PCP: Dr. Jaycob Yang MD Status:REG SD C Y Race: C Location: [place] [address] Anesthesia Postop Eval I Sum Postop Eval Completion status Anesthesia document: Postop Eval 1 completed: Yes Anesthesia Postop Eval I Summary Anesthesia Postop Eval I Summary: Anesthesia Postop Eval I: Assessment Summary Airway patent Yes 03/08/25 18:30 Spontaneous unlabored Yes 03/08/25 18:30 respirations Mental status Awake,Calm 03/08/25 18:30 nausea No 03/08/25 18:30 Vomiting No 03/08/25 18:30 Anesthesia Postop Eval I: Fluid Summary Crystalloid volume administer 10 03/08/25 18:30 (ml) Colloids volume administered ( ml) Blood Product volume administered (ml) Total IV fluid infused 10 03/08/25 18:30 Anesthesia Postop Eval I: Summary Notes Anesthesia Complication No 03/08/25 18:30 Anesthesia Complication Comment: Post-operative progress note Anesthesia: Postop Eval II Evaluation Mental status: Awake Pain Level: 0 nausea: No Vomiting: No 03/08/251829 > Date _ Barry Kline MD Cosigner Signature: Date CC: ~ Signed [facility]04-14-2025 Procedure note [facility] Medical Records Department [address] [place] [address] EGD Report MR#: [id number] Acct: [id number] Name: LIBRADO GUILLEN Rep #:[id number] : 1945 79 From: Geovani Ramirez DO PCP: Dr. Jaycob Yang MD Status:REG SD C Patient Name: Librado Guillen Procedure Date: 03/08/2025 5:48 PM Date of : 1945 Age: 79 Procedure: Upper GI endoscopy Indications: Foreign body in the esophagus Providers: Geovani Ramirez DO Medicines: Monitored Anesthesia Care Patient Profile: This is a 79 year old male. Refer to note in patient chart for documentation of history and physical. Patient has symptoms of dysphagia with solids. Complications: No immediate complications. Procedure: Pre-Anesthesia Assessment: - Prior to the procedure, a History and Physical was performed, and patient medications and allergies were reviewed. The patient is competent. The risks and benefits of the procedure and the sedation options and risks were discussed with the patient. All questions were answered and informed consent was obtained. Patient identification and proposed procedure were verified by the physician in the pre-procedure area. Mental Status Examination: alert and oriented. Airway Examination: normal oropharyngeal airway and neck mobility. Respiratory Examination: clear to auscultation. CV Examination: normal. Prophylactic Antibiotics: The patient does not require prophylactic antibiotics. Prior Anticoagulants: The patient has taken no anticoagulant or antiplatelet agents except for NSAID medication. ASA Grade Assessment: III - A patient with severe systemic disease. After reviewing the risks and benefits, the patient was deemed in satisfactory condition to undergo the procedure. The anesthesia plan was to use monitored anesthesia care (MAC). Immediately prior to administration of medications, the patient was re-assessed for adequacy to receive sedatives. The heart rate, respiratory rate, oxygen saturations, blood pressure, adequacy of pulmonary ventilation, and response to care were monitored throughout the procedure. The physical status of the patient was re-assessed after the procedure. After obtaining informed consent, the endoscope was passed under direct vision. Throughout the procedure, the patient's blood pressure, pulse, and oxygen saturations were monitored continuously. The gastroscope was introduced through the mouth, and advanced to the second part of duodenum. The upper GI endoscopy was accomplished without difficulty. The patient tolerated the procedure well. Scope In: 6:09:13 PM Scope Out: 6:20:47 PM Total Procedure Duration Time 0 hours 11 minutes 34 seconds Findings: Food was found at the cricopharyngeus. Removal was accomplished with a regular forceps and Nunez net. A non-bleeding Zenker's diverticulum with a large opening, impacted food and no stigmata of recent bleeding was found. The exam of the esophagus was otherwise normal. No gross lesions were noted in the stomach. No gross lesions were noted in the entire examined duodenum. Impression: - Food at the cricopharyngeus. Removal was successful. - Zenker's diverticulum. - No gross lesions in the stomach. - No gross lesions in the entire examined duodenum. Recommendation: - Discharge patient to home. - Resume previous diet. - Continue present medications. Procedure Code(s): --- Professional --- 93660, Esophagogastroduodenoscopy, flexible, transoral; with removal of foreign body(s) CPT copyright 2021 [employer]. All rights reserved. The codes documented in this report are preliminary and upon locker attendant review may be revised to meet current compliance requirements. Geovani Ramirez DO 03/08/2025 6:24:36 PM This report has been signed electronically. Number of Addenda: 0 Note Initiated On: 03/08/2025 5:48 PM 03/08/25 1824 Date _ Geovani Krishnaignjuan alberto Signature: Date (if indicated) CC: Dr. Jaycob Yang MD; Geovani Ramirez DO ~ Date Dictated: 03/08/25 1748 Date Transcribed: Heat Treat Inspector: RF Signed [facility]04-14-2025 Procedure note [facility] Medical Records Department [address] [place] [address] [place] [address] Operative Report - CC Letter MR#: [id number] Acct: [id number] Name: LIBRADO GUILLEN Rep #:[id number] : 1945 79 From: Geovani Ramirez DO PCP: Dr. Jaycob Yang MD Status:REG SD C 03/08/2025 Jaycob Yang Md Re : Upper GI endoscopy procedure for Librado Guillen Dear Trey This procedure was performed on Saturday, March 08, 2025. My impressions and recommendations are as follows: Impressions : - Food at the cricopharyngeus. Removal was successful. - Zenker's diverticulum. - No gross lesions in the stomach. - No gross lesions in the entire examined duodenum. Recommendations : - Discharge patient to home. - Resume previous diet. - Continue present medications. My findings are described in the full procedure note, which is enclosed. If I can be of further assistance, please feel free to contact me at . Sincerely, Geovani Ramirez DO 03/08/2025 6:24:36 PM This report has been signed electronically. 03/08/25 182 Date _ Geovani Krishnaignjuan alberto Signature: Date (if indicated) CC: Dr. Jaycob Yang MD; Geovani Ramirez DO ~ Date Dictated: 03/08/25 1748 Date Transcribed: Heat Treat Inspector: RF Signed [facility]04-14-2025 History and physical note [facility] Medical Records Department [address] [place] [address] History & Physical Exam 03/08/25 1726 MR#: [id number] Acct: [id number] Name: LIBRADO GUILLEN Rep #:[id number] : 1945 79 From: Geovani Ramirez DO PCP: Dr. Jaycob Yang MD Status:REG SD C Location: [facility] HPI - General General Date of Admission: 03/08/25 Date of Service: 03/08/25 Chief Complaint: food impaction HPI Narrative LIBRADO GUILLEN, is a 79 M who presents with esophageal food impaction that occurred today. Patient states he was eating lunch approximately 40 minutes prior to arrival. Patient states he was eating some chicken and it felt like itgot stuck in his throat. Patient states it still feels like it is stuck. Patient states he is unable to swallow water. Patient states he feels the watergoing part way down and then he has to spit it back up. Patient denies any difficulty breathing. Patient denies any fevers or chills. Patient denies any chest pain. Patient states he has a history of Zenker's diverticulum and had surgery. Patient states that they opened it up but did not remove it. [facility] Medical History Zenkers diverticulum BPH (benign prostatic hyperplasia) History of DVT (deep vein thrombosis) GERD (gastroesophageal reflux disease) Former smoker Sleep apnea Chest pain Asthma IBS (irritable bowel syndrome) Crohn's disease Home Medications ?Medication ?Instructions ?Recorded ?Last Taken ?Type fluticasone furoate 200 1 ea IH DAILY 04/04/1904/19 09:00 History mcg-vilanterol 25 mcg/dose inhalation powder (Breo Ellipta) albuterol sulfate 2.5 mg/3 mL 1 puff inhalation Q4H LA N PRN Sob 11/30/19 Unknown History (0.083 %) solution for nebulization &/Or Wheezing bisacodyl 5 mg tablet 10 mg PO DAILY constipation 04/19/21 Unknown History mesalamine 400 mg capsule,delayed 2,400 mg PO DAILY Cr ohns 04/19/21 04/19/21 History release omeprazole 40 mg capsule,delayed 40 mg PO BID reflux 0 04/19/21 04/19/21 16:00 History release polyethylene glycol 3350 17 gram 17 g PO DAILY constip ation 04/19/21 04/19/21 History oral powder packet hydrocodone-acetaminophen 5-325mg 1 tab PO Q6H PRN david n 3 days #12 03/29/22 Unknown Rx 5mg-325mg tabs Allergy/AdvReac Type Severity Reaction Status Date / Time adalimumab (From Humira) Allergy itching Verified 03/08/25 14:11 Family History Mother CHF (congestive heart failure) Father Cancer unsure Surgical History History of colonoscopy (~06/2021) Hx of cholecystectomy Social History Smoking Status: Former smoker ROS Constitutional Constitutional: Denies fatigue, fever(s), poor appetite, weight gain or weight loss Gastrointestinal Gastrointestinal: Denies belching, bloating, change in bowel habits, change in stool character, chewing difficulty, coffee ground emesis, constipation, cramping, diarrhea, dyspepsia, dysphagia, earlysatiety, excessive flatus, fecalincontinence, heartburn, hematemesis, hematochezia, hemorrhoids, loose stools, melena, nausea, odynophagia, rectal bleeding, tenesmus, vomiting or weight changes Vital Signs Vital Signs Vital Signs: 03/08/25 14:08 03/08/25 14:19 03/08/25 15:11 Temperature 97.9 F Temperature Source Temporal Pulse Rate 96 85 Respiratory Rate 18 16 Respiratory Effort Normal Non-Labored Blood Pressure 167/78 H 126/73 H Blood Pressure Mean 107 90 Blood Pressure Source Blood Pressure Position Blood Pressure Location Pulse Ox 96 99 Oxygen Delivery Method Room Air Room Air 03/08/25 16:10 03/08/25 16:16 03/08/25 16:37 Temperature 98.7 F 98.7 F 98.7 F Temperature Source Oral Pulse Rate 74 78 78 Respiratory Rate 16 16 16 Respiratory Effort Blood Pressure 155/68 H 158/68 H 158/68 H Blood Pressure Mean 97 98 Blood Pressure Source Monitor Blood Pressure Position Semi-Fowlers Blood Pressure Location Right Arm Pulse Ox 97 99 99 Oxygen Delivery Method Room Air Weight Weight: 246 lb 0.574 oz Body Mass Index (BMI) 35.3 Physical Exam Const alert, oriented x3, no apparent distress and healthy appearing General Appearance: cooperative GI normal to inspection, nondistended, normoactive bowel sounds, soft to palpation,non-tender and non-distended Percussion: normal to percussion Rectal Exam: deferred Assessment & Plan Assessment/Plan (1) Esophageal obstruction due to food impaction: PLAN: Patient will undergo EGD with food impaction removal and possible esophageal dilation. He wasexplained alternatives, risk and benefits include understanding bleeding, infection, sepsis, perforation, need for charge and . He will have an ASA of 3.. 03/08/25 1728 Cosigner Signature (if applicable): CC: Dr. Jaycob Yang MD; Geovani Ramirez DO~ Signed [facility]04-14-2025 [facility] Medical Records Department [address] [place] [address] History Physical Exam 03/08/25 172 MR#: [id number] Acct: [id number] Name: LIBRADO GUILLEN Rep #: [id number] : 1945 79 From: Geovani Ramirez DO PCP: Dr. Jaycob Yang MD Status:[facility] Location: [facility] AC-TBA-3 HPI - General General Date of Admission: 03/08/25 Date of Service: 03/08/25 Chief Complaint: food impaction HPI Narrative LIBRADO GUILLEN, is a 79 M who presents with esophageal food impaction that occurred today. Patient states he was eating lunch approximately 40 minutes prior to arrival. Patient states he was eating some chicken and it felt like it got stuck in his throat. Patient states it still feels like it is stuck. Patient states he is unable to swallow water. Patient states he feels the water going part way down and then he has to spit it back up. Patient denies any difficulty breathing. Patient denies any fevers or chills. Patient denies any chest pain. Patient states he has a history of Zenker's diverticulum and had surgery. Patient states that they opened it up but did not remove it. [facility] Medical History Zenkers diverticulum BPH (benign prostatic hyperplasia) History of DVT (deep vein thrombosis) GERD (gastroesophageal reflux disease) Former smoker Sleep apnea Chest pain Asthma IBS (irritable bowel syndrome) Crohn's disease Home Medications ???Medication ???Instructions ???Recorded ???Last Taken ???Type fluticasone furoate 200 1 ea IH DAILY 04/04/19 04/19/21 09 :00 History mcg-vilanterol 25 mcg/dose inhalation powder (Breo Ellipta) albuterol sulfate 2.5 mg/3 mL 1 puff inhalation Q4H PRN PRN Sob 11/30/19 Unknown History (0.083 %) solution for nebulization /Or Wheezing bisacodyl 5 mg tablet 10 mg PO DAILY constipation Unknown History mesalamine 400 mg capsule,delayed 2,400 mg PO DAILY Crohns 04/19/21 04/19/21 History release omeprazole 40 mg capsule,delayed 40 mg PO BID reflux 04/19/2104/19 16:00 History release polyethylene glycol 3350 17 gram 17 g PO DAILY constipation 1 04/19/21 History oral powder packet hydrocodone-acetaminophen 5-325mg 1 tab PO Q6H PRN pain 3 days #12 03/29/22 Unknown Rx 5mg-325mg tabs Allergy/AdvReac Type Severity Reaction Status Date / Time adalimumab (From Humira) Allergy itching Verified 03/08/25 14:11 Family History Mother CHF (congestive heart failure) Father Cancer unsure Surgical History History of colonoscopy ( 06/2021) Hx of cholecystectomy Social History Smoking Status: Former smoker ROS Constitutional Constitutional: Denies fatigue, fever(s), poor appetite, weight gain or weight loss Gastrointestinal Gastrointestinal: Denies belching, bloating, change in bowel habits, change in stool character, chewing difficulty, coffee ground emesis, constipation, cramping, diarrhea, dyspepsia, dysphagia, early satiety, excessive flatus, fecal incontinence, heartburn, hematemesis, hematochezia, hemorrhoids, loose stools, melena, nausea, odynophagia, rectal bleeding, tenesmus, vomiting or weight changes Vital Signs Vital Signs Vital Signs: 03/08/25 14:08 03/08/25 14:19 03/08/25 15:11 Temperature 97.9 F Temperature Source Temporal Pulse Rate 96 85 Respiratory Rate 18 16 Respiratory Effort Normal Non-Labored Blood Pressure 167/78 H 126/73 H Blood Pressure Mean 107 90 Blood Pressure Source Blood Pressure Position Blood Pressure Location Pulse Ox 96 99 Oxygen Delivery Method Room Air Room Air 03/08/25 16:10 03/08/25 16:16 03/08/25 16:37 Temperature 98.7 F 98.7 F 98.7 F Temperature Source Oral Pulse Rate 74 78 78 Respiratory Rate 16 16 16 Respiratory Effort Blood Pressure 155/68 H 158/68 H 158/68 H Blood Pressure Mean 97 98 Blood Pressure Source Monitor Blood Pressure Position Semi-Fowlers Blood Pressure Location Right Arm Pulse Ox 97 99 99 Oxygen Delivery Method Room Air Weight Weight: 246 lb 0.574 oz Body Mass Index (BMI) 35.3 Physical Exam Const alert, oriented x3, no apparent distress and healthy appearing General Appearance: cooperative GI normal to inspection, nondistended, normoactive bowel sounds, soft to palpation, non-tender and non- distended Percussion: normal to percussion Rectal Exam: deferred Assessment Plan Assessment/Plan (1) Esophageal obstruction due to food impaction: PLAN: Patient will undergo EGD with food impaction removal and possible esophageal dilation. He was explained al (more content not included)...[facility]04-14-2025 Consult note [facility] Medical Records Department [address] [place] [address] Pre-Anesthesia Evaluation 03/08/25 1637 MR#: [id number] Acct: [id number] Name: LIBRADO GUILLEN Rep #:[id number] : 1945 79 From: Barry Kline MD PCP: Dr. Jaycob Yang MD Status:REG SD C Y Race: C Location: [place] [address] ASA Classification* ASA Classification ASA Classification: 2 and E Assessment & Plan Anesthesia* Anesthesia Assessment Anesthesia Assessment: Discussed sedation and/or anesthesia options, risks, benefits, and alternatives with patient/parents/legal guardian/POA. Questions invited. The patient/parents/legal guardian/POA seems to understand and agrees to proceedwith anesthesia plan. Reviewed the physical assessment, medical history, allergy history and patient home medications list prior to surgery/procedure/anesthetic and documented any changes. Performed airway and anesthesia risk assessments. Anesthesia Type Anesthesia Type: MAC Anesthesia Focused Assessment* Temperature: 98.7 F Pulse Rate: 78 Blood Pressure: 158/68 Respiratory Rate: 16 Pulse Ox: 99 Airway Assessment Mouth opens: >3 cm Mallampati Score: II Focused Labs Anesthesia Preop lab: CBC WBC 9.5 K/mm3 (4.4-11.0) 06/03/24 18:46 06/03/24 RBC 4.74 M/mm3 (4.6-6.2) 06/03/24 18:46 06/03/24 Hgb 14.3 g/dL (13.0-16.5) 06/03/24 18:46 06/03/24 Hct 42.7 % (40-54) 06/03/24 18:46 06/03/24 Plt Count 211 K/mm3 (150-450) 06/03/24 18:46 06/03/24 CHEMISTRY Potassium 4.2 mmol/L (3.5-5.1) 06/03/24 18:46 06/03/24 Sodium 140 mmol/L (136-145) 06/03/24 18:46 06/03/24 Magnesium 2.5 mg/dL (1.6-2.6) 04/25/23 15:12 04/25/23 BUN 18 mg/dL (7-18) 06/03/24 18:46 06/03/24 Creatinine 1.20 mg/dL (0.70-1.30) 06/03/24 18:46 06/03/24 Glucose 86 mg/dL (74-106) 06/03/24 18:46 06/03/24 TSH 1.10 uIU/mL (0.358-3.74) 04/25/23 15:12 COAG PT 13.2 SECONDS (11.7-14.9) 06/03/24 18:46 Pre-Assessment Diagnosis/Proposed Procedure Planned Operative Procedure(s): EGD, remove FB Esophagous Anesthesia History 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 When Was Last Pacemaker Check QUESTION #4 FULL TEXT: You/Your Family Experience fever (hyperthermia) with Anesthesia Last Oral Intake Last Oral intake: Last Oral Intake NPO since 13:30 03/08/25 16:10 Meds taken in AM with sips of water? Meds patient instructed to take am of surgery PONV PONV - personal lines sales executive: PONV - personal lines sales executive Female HX of Motion Sickness HX of N/V After Surgery Non-Smoker Duration of Surgery greater than 60 minutes Number of Risk Factors PONV Score Height & Weight Height & Weight: Anesthesia: Height & Weight Height 5 ft 10 in 03/08/25 16:10 Weight: 111.6 kg 03/08/25 16:10 Body Mass Index (BMI) 35.3 03/08/25 16:10 Respiratory Assessment Respiratory Assessment - personal lines sales executive: Respiratory Tract Infection Hx - personal lines sales executive Hx Respiratory Tract Infection No 03/08/25 16:10 STOP Sleep Apnea STOP Sleep Apnea - personal lines sales executive: STOP Sleep Apnea - personal lines sales executive Hx Hypertension No 04/19/21 22:38 Hx Sleep Apnea Yes 03/08/25 16:10 CPAP Yes 03/08/25 16:10 BIPAP No 03/08/25 16:10 Do you snore loudly (louder than talking or can be heard Do you often feel tired/ fatigued/ sleepy during daytime? Has anyone observed you stop breathing during sleep? STOP Results Positive 03/08/25 16:10 QUESTION #5 FULL TEXT : Do you snore loudly (louder than talking or can be heard through closeddoors)? 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 Specify any problems Hx of Preganancy in last 3 Months Nurse Filling Out Transfusion & Questions: Date: Time: Patient unable to answer at this time (ie. confused, unrespo /Reproduction History /Reproductive History - personal lines sales executive: /Reproductive Hx- personal lines sales executive Hx Now No 03/08/25 16:10 Gestational Age (in weeks): EDC: Hx Hx Para Hx Section SAB No 03/08/25 16:10 [facility] Medical History Zenkers diverticulum BPH (benign prostatic hyperplasia) History of DVT (deep vein thrombosis) GERD (gastroesophageal reflux disease) Former smoker Sleep apnea Chest pain Asthma IBS (irritable bowel syndrome) Crohn's disease Home Medications ?Medication ?Instructions ?Recorded ?Last Taken ?Type fluticasone furoate 200 1 ea IH DAILY 04/04/1904/19 09:00 History mcg-vilanterol 25 mcg/dose inhalation powder (Breo Ellipta) albuterol sulfate 2.5 mg/3 mL 1 puff inhalation Q4H LA N PRN Sob 11/30/19 Unknown History (0.083 %) solution for nebulization &/Or Wheezing bisacodyl 5 mg tablet 10 mg PO DAILY constipation 04/19/21 Unknown History mesalamine 400 mg capsule,delayed 2,400 mg PO DAILY Cr ohns 04/19/21 04/19/21 History release omeprazole 40 mg capsule,delayed 40 mg PO BID reflux 0 04/19/21 04/19/21 16:00 History release polyethylene glycol 3350 17 gram 17 g PO DAILY constip ation 04/19/21 04/19/21 History oral powder packet hydrocodone-acetaminophen 5-325mg 1 tab PO Q6H PRN david n 3 days #12 03/29/22 Unknown Rx 5mg-325mg tabs Allergy/AdvReac Type Severity Reaction Status Date / Time adalimumab (From Humira) Allergy itching Verified 03/08/25 14:11 Family History Mother CHF (congestive heart failure) Father Cancer unsure Surgical History History of colonoscopy (~06/2021) Hx of cholecystectomy Social History Smoking Status: Former smoker Review of Systems (Anesthesia) ROS Narrative System reviewed and no additional complaints, except as documented. 03/08/25 1637 > Date _ Barry Kline MD Cosigner Signature: Date CC: ~ Signed [facility]10-24-2024 Consult note Author Barry masood [facility] Note Date/Time March 08, 2025 6:3 0pm [facility] Medical Records Department [address] [place] [address] Anesthesia Postop Eval II 03/08/25 1830 MR#: [id number] Acct: [id number] Name: MINDYLIBRADO D Rep #:[id number] : 1945 79 From: Barry Kline MD PCP: Dr. Jaycob Yang MD Status:REG SD C Y Race: C Location: [facility] Anesthesia Postop Eval I Sum Postop Eval Completion status Anesthesia document: Postop Eval 1 completed: Yes Anesthesia Postop Eval I Summary Anesthesia Postop Eval I Summary: Anesthesia Postop Eval I: Assessment Summary Airway patent Yes 03/08/25 18:30 Spontaneous unlabored Yes 03/08/25 18:30 respirations Mental status Awake,Calm 03/08/25 18:30 nausea No 03/08/25 18:30 Vomiting No 03/08/25 18:30 Anesthesia Postop Eval I: Fluid Summary Crystalloid volume administer 10 03/08/25 18:30 (ml) Colloids volume administered ( ml) Blood Product volume administered (ml) Total IV fluid infused 10 03/08/25 18:30 Anesthesia Postop Eval I: Summary Notes Anesthesia Complication No 03/08/25 18:30 Anesthesia Complication Comment: Post-operative progress note Anesthesia: Postop Eval II Evaluation Mental status: Awake Pain Level: 0 nausea: No Vomiting: No 03/08/25 1830 <Electronically signed by Barry Kline MD > Date _ Barry Kline MD Cosigner Signature: Date CC: ~ Signed [facility] Work Phone: 1(165) 676-558109-23-2024 History of Present illness Narrative* Malou Villagomez APRN.[employer] - 08/17/2024 11:00 AM EDT HISTORY AND PHYSICAL Librado Guillen : 1945 REFERRING PHYSICIAN: [facility] CHIEF COMPLAINT: Patient presents with: Consult: EGD and colonoscopy consultation. HPI: Librado is a 78 year old male referred for endoscopy. Librado notes continued reflux symptoms despite PPI, hx of barretts with HGD s/p RFA. Librado denies abdominal pain. Librado notes diarrhea. D/t crohns but well controlled with mesalamine Librado denies constipation. Librado denies a change in bowel habits. Librado denies melena. Librado denies bright red blood per rectum. Librado denies hemorrhoids. Hx of Crohn's Dx- PO mesalamine BID Jonas was supposed to complete colonoscopy at the end of June, however his ride fell through and itwas never completed. Librado notes heartburn. 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 Jonas refers he had this procedure done 3 times and the final time they had to enter through the neck. He still refers difficulty swallowing +Having retrosternal burning pain Librado denies a history of ulcers/ peptic ulcer disease. Jonas presented to [facility] ED for CP. Cardiac work up was negative. Had stress test with completed 06/30/24no evidence of ischemia. EF is 69% Jonas follows with Dr. Arriola for asthma. Denies recent exacerbations, rescue inhaler, wheezing, SOB, recent hospitalizations Denies family history of colon issues. Librado has undergone prior endoscopy. EGD 09/2022 @ [facility] COLONOSCOPY 07/2021 @ [facility] - Ascending colon: HP - Descending colon: TA - Descending biopsy: nonspecific focal colitis Current Outpatient Medications Medication Sig benralizumab (FASENRA) 30 mg/mL injection Inject 30 mg subcutaneously every 8 weeks. dicyclomine (BENTYL) 20 mg tablet Take 20 mg by mouth four times a day as needed (abdominal pain). escitalopram oxalate (LEXAPRO) 5 mg tablet Take 5 mg by mouth once daily. esomeprazole (NEXIUM) 40 mg capsule Take 40 mg by mouth two times a day before meals. Mesalamine (LIALDA) 1.2 gram EC tablet Take 2,400 mg by mouth two times a day with meals. predniSONE (DELTASONE) 1 mg tablet Take 4 mg by mouth once daily. fluticasone-vilanterol (BREO ELLIPTA) 200-25 mcg/dose inhaler Inhale 1 Inhalation as instructed once daily. albuterol HFA (PROVENTIL HFA, VENTOLIN HFA) 90 mcg/actuation inhaler Inhale 2 Puffs as instructed every 6 hours as needed for wheezing/shortness of breath. Bisacodyl (DULCOLAX) 5 mg tab Take 10 mg by mouth as needed for constipation. budesonide, enteric coated (ENTOCORT EC) 3 mg 24 hr capsule Take 3 mg by mouth once daily. 3 capsules by mouth every day for 30 days then, 2 capsules by mouth every day for 30 days then, 1 capsule by mouth every day for 30 days for Crohn's disease. polyethylene glycol 3350 17 gram packet Take 17 g by mouth two times a day. Dissolve dose in 4 - 8 ounces of liquid and take as directed. aluminum & magnesium hydroxide-simethicone (MAALOX PLUS EXTRA STRENGTH) 400-400-40 mg/5 mL suspension Take 10 mL by mouth every 6 hours as needed (heartburn/indigestion). acetaminophen with codeine (ACETAMINOPHEN-CODEINE) 120 mg-12 mg /5 mL (5 mL) Take 5 mL by mouth every 8 hours as needed. omeprazole (PRILOSEC) 20 mg capsule Take 40 mg by mouth twice daily. albuterol (PROVENTIL) 2.5 mg /3 mL (0.083 %) nebulizer solution Use 3 mL via nebulizer every 4 hours. predniSONE (DELTASONE) 10 mg tablet Take 1 tablet by mouth once daily. (Patient taking differently:Take 5 mg by mouth once daily.) budesonide (PULMICORT) 0.5 mg/2 mL nebulizer solution Use 2 mL via nebulizer twice daily. ALBUTEROL INHALATION Inhale 2 Puffs as instructed as needed. ZYRTEC 10MG TABLET NEEDED No current facility-administered medications for this visit. 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 Crohn disease (HCC) Depression Diaphragmatic hernia without mention of obstruction or gangrene Hiatal hernia DVT of lower extremity (deep venous thrombosis) ([facility]) 07/11/2020 LLE Esophageal reflux Gastroesophageal reflux IBS (irritable bowel syndrome) Meningioma (HCC) right frontal lobe FABIANO (obstructive sleep apnea) compliant with CPAP at night Osteopenia Zenker's diverticulum PAST SURGICAL HISTORY Procedure Laterality Date COLONOSCOPY approx 06/2021 EGD W/O [facility] SPEC VARICIES INJ 06/2021 PAST SURGICAL HISTORY OF 1973 gallbladder removed PAST SURGICAL HISTORY OF 1974 right rib removed; TOS PAST SURGICAL HISTORY OF Multiple EGDs for Barretts esopagus PAST SURGICAL HISTORY OF bronchotheroplasty PAST SURGICAL HISTORY OF Right 05/23/2018 R Forearm Laceration Involving Tendon FAMILY HISTORY Problem Relation Age of Onset Heart Mother CHF Cancer Father lung CA Social History Tobacco Use Smoking status: Former Current packs/day: 0.00 Average packs/day: 0.5 packs/day for 15.0 years (7.5 ttl pk-yrs) Types: Cigarettes Start date: 12/06/1978 Quit date: 12/06/1993 Years since quittin.7 Smokeless tobacco: Never Substance Use Topics Alcohol use: Yes Comment: SOCIAL DRINKER 1-2 DRINKS PER MONTH Drug use: No REVIEW OF SYMPTOMS: REVIEW OF SYSTEMS: General: The patient denies fatigue, denies weight loss, denies weight gain, denies feeling hot, and feelings of cold. Cardiovascular: The patient denies chest pain, denies heart disease, denies high blood pressure, denies high cholesterol, and denies poor circulation. Respiratory: The patient denies tuberculosis, denies pneumonia, denies frequent cough, denies shortness of breath, and denies coughing up blood. Gastrointestinal: The patient denies difficulty swallowing, + acid reflux, denies ulcers, denies jaundice/hepatitis, denies gallbladder problems, denies vomiting, denies black or tarry stools, denieshemorrhoids, denies bleeding from rectum, + diverticulitis, + constipation, denies diarrhea, deniesloss of stool control, and denies hernias. PHYSICAL EXAMINATION: General: The patient is 78 year old, male well nourished, well hydrated in no acute distress. The patient is oriented to time, place, and person. VITALS: Blood pressure 122/80, pulse 84, temperature 36.2 C (97.1 F), height 177.8 cm (5' 10), weight 117.6 kg (259 lb 3.2 oz), SpO2 97%. Body mass index is 37.19 kg/m . HEENT: Normal cephalic, ataumatic, pupils are equally round, sclera are anicteric, mucous membranesare moist, oropharynx is clear. Neck has no masses, asymmetry or lymphadenopathy. Respiratory: Clear to auscultation and percussion. Normal respiratory excursion and pattern. Cardiac: Examination is regular rate and rhythm. Normal S1/S2 Abdominal exam: Soft, nontender, with no palpable masses. No hepatosplenomegaly. No palpable hernias. Extremities: no clubbing, cyanosis or edema. No adenopathy. LABORATORY VALUES: As Noted RADIOLOGIC STUDIES: As Noted Assessment IMPRESSION: patel's esophagus, screen for colon cancer, Crohn's disease PLAN: After discussion of the need for MAC d/t multiple failed diverticulum procedures and severe asthma Jonas refers he can not find a ride to [place] and would like to stay local. He is already a patient of Dr. Andujar, however[facility]'t [facility] anymore. If needed I can fax a consult for GI to [facility]. Jonas will call me if he can't complete the procedures with Dr. Andujar. Diagnoses: (K22.711) Patel's esophagus with high grade dysplasia (primary encounter diagnosis) (Z12.11) Screen for colon cancer (K50.819) Crohn's disease of small and large intestines with complication (HCC) Portions of this documentation were copied and pasted from previous office visit notes in order to provide a cohesive continuity of the history. The note has been reviewed and edited and updated as necessary. Malou Villagomez APRN.PLASTIC SHAPER [facility] NoteHNO ID: [id number] Author: MALOU VILLAGOMEZ APRN.SHAR Service: ? Author Type: Nurse Practitioner Type: Progress Notes Filed: 08/17/2024 11:42 Note Text: HISTORY AND PHYSICAL Librado Guillen : 1945 REFERRING PHYSICIAN: EVAN HAILE [facility] CHIEF COMPLAINT: Patient presents with: Consult: EGD and colonoscopy consultation. HPI: Librado is a 78 year old male referred for endoscopy. Librado notes continued reflux symptoms despite PPI, hx of barretts with HGD s/p RFA. Librado denies abdominal pain. Librado notes diarrhea. D/t crohns but well controlled with mesalamine Librado denies constipation. Librado denies a change in bowel habits. Librado denies melena. Librado denies bright red blood per rectum. Librado denies hemorrhoids. Hx of Crohn's Dx- PO mesalamine BID Jonas was supposed to complete colonoscopy at the end of June, however his ride fell through and it was never completed. Librado notes heartburn. 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 Jonas refers he had this procedure done 3 times and the final time they had to enter through the neck. He still refers difficulty swallowing +Having retrosternal burning pain Librado denies a history of ulcers/ peptic ulcer disease. Jonas presented to [facility] ED for CP. Cardiac work up was negative. Had stress test with completed 06/30/24 no evidence of ischemia. EF is 69% Jonas follows with Dr. Arriola for asthma. Denies recent exacerbations, rescue inhaler, wheezing, SOB, recent hospitalizations Denies family history of colon issues. Librado has undergone prior endoscopy. EGD 09/2022 @ [facility] COLONOSCOPY 07/2021 @ [facility] - Ascending colon: HP - Descending colon: TA - Descending biopsy: nonspecific focal colitis Current Outpatient Medications Medication Sig benralizumab (FASENRA) 30 mg/mL injection Inject 30 mg subcutaneously every 8 weeks. dicyclomine (BENTYL) 20 mg tablet Take 20 mg by mouth four times a day as needed (abdominal pain). escitalopram oxalate (LEXAPRO) 5 mg tablet Take 5 mg by mouth once daily. esomeprazole (NEXIUM) 40 mg capsule Take 40 mg by mouth two times a day before meals. Mesalamine (LIALDA) 1.2 gram EC tablet Take 2,400 mg by mouth two times a day with meals. predniSONE (DELTASONE) 1 mg tablet Take 4 mg by mouth once daily. fluticasone-vilanterol (BREO ELLIPTA) 200-25 mcg/dose inhaler Inhale 1 Inhalation as instructed once daily. albuterol HFA (PROVENTIL HFA, VENTOLIN HFA) 90 mcg/actuation inhaler Inhale 2 Puffs as instructed every 6 hours as needed for wheezing/shortness of breath. Bisacodyl (DULCOLAX) 5 mg tab Take 10 mg by mouth as needed for constipation. budesonide, enteric coated (ENTOCORT EC) 3 mg 24 hr capsule Take 3 mg by mouth once daily. 3 capsules by mouth every day for 30 days then, 2 capsules by mouth every day for 30 days then, 1 capsule by mouth every day for 30 days for Crohn's disease. polyethylene glycol 3350 17 gram packet Take 17 g by mouth two times a day. Dissolve dose in 4 - 8 ounces of liquid and take as directed. aluminum AND magnesium hydroxide-simethicone (MAALOX PLUS EXTRA STRENGTH) 400-400-40 mg/5 mL suspension Take 10 mL by mouth every 6 hours as needed (heartburn/indigestion). acetaminophen with codeine (ACETAMINOPHEN-CODEINE) 120 mg-12 mg /5 mL (5 mL) Take 5 mL by mouth every 8 hours as needed. omeprazole (PRILOSEC) 20 mg capsule Take 40 mg by mouth twice daily. albuterol (PROVENTIL) 2.5 mg /3 mL (0.083 %) nebulizer solution Use 3 mL via nebulizer every 4 hours. predniSONE (DELTASONE) 10 mg tablet Take 1 tablet by mouth once daily. (Patient taking differently: Take 5 mg by mouth once daily.) budesonide (PULMICORT) 0.5 mg/2 mL nebulizer solution Use 2 mL via nebulizer twice daily. ALBUTEROL INHALATION Inhale 2 Puffs as instructed as needed. ZYRTEC 10MG TABLET NEEDED No current facility-administered medications for this visit. 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 Crohn disease (HCC) Depression Diaphragmatic hernia without mention of obstruction or gangrene Hiatal hernia DVT of lower extremity (deep venous thrombosis) ([facility]) 07/11/2020 LLE Esophageal reflux Gastroesophageal reflux IBS (irritable bowel syndrome) Meningioma (HCC) right frontal lobe FABIANO (obstructive sleep apnea) compliant with CPAP at night Osteopenia Zenker's diverticulum PAST SURGICAL HISTORY Procedure Laterality Date COLONOSCOPY approx 06/2021 EGD W/O [facility] SPEC VARICIES INJ 06/2021 PAST SURGICAL HISTORY OF 1973 gallbladder removed PAST SURGICAL HISTORY OF 1974 right rib removed; TOS PAST (more content not included)...[facility] note Author Barry Kline [facility] Note Date/Time March 08, 2025 6:3 0pm [facility] Medical Records Department [address] [place] [address] Anesthesia Postop Eval I 03/08/25 1829 MR#: [id number] Acct: [id number] Name: LIBRADO GUILLEN Rep #:[id number] : 1945 79 From: Barry Kline MD PCP: Dr. Jaycob Yang MD Status:REG SD C Y Race: C Location: [place] [address] Anesthesia: Postop Eval I Current Vital Signs Temperature: 97.6 F Pulse Rate: 82 Blood Pressure: 131/67 Respiratory Rate: 16 Pulse Ox: 98 Oxygen Delivery Method: Room Air Assessment Airway patent: Yes Spontaneous unlabored respirations: Yes Mental status: Awake and Calm nausea: No Vomiting: No Anesthesia Complication: No Fluid Hydration Crystalloid volume administer (ml): 10 Total IV fluid infused: 10 Progress Note Anesthesia document: Postop Eval 1 completed: Yes 03/08/251829 <Electronically signed by Barry Kline MD > Date _ Barry Kline MD Cosign Signature: Date CC: ~ Signed [facility] Work Phone: Discharge summary Author Lewis [facility] Note Date/Time May 31, 2025 10:59 am [facility] Medical Records Department [address] [place] [address] Emergency Department Summary 05/31/25 MR#: [id number] Acct: [id number] Name: LIBRADO GUILLEN Rep #:[id number] : 1945 79 From: Lewis Turpin DO PCP: Dr. Jaycob Yang MD Status:REG ER Location: ED HPI History of Present Illness Chief Complaint: Other, Pain/Inj Narrative Narrative: Patient is a 79-year-old male with past medical history of Crohn's, IBS, asthma,GERD, Zenker's diverticulum who presents to the emergency department chief complaint of oral thrush with pain in his mouth. He states that this has been going on since last week and notes that he originally went to the ears nose and throat had a nurse practitioner and states he really did not know what he was looking at he states that he sent him home and he states that the neck several days his pain is severe to the [facility] the emergency department and he states that the doctor there said require you. This is an emergency room go see your doctor he states that he followed up with his PCP and he was given some medication with fungal properties as well as lidocaine as he states that his lips and his tongue on fire and he could not take the pain anymore thereforehe came here for further evaluation management [facility] Medical History Zenkers diverticulum BPH (benign prostatic hyperplasia) History of DVT (deep vein thrombosis) GERD (gastroesophageal reflux disease) Former smoker Sleep apnea Chest pain Asthma IBS (irritable bowel syndrome) Crohn's disease Home Medications ?Medication ?Instructions ?Recorded ?Last Taken ?Type benralizumab 10 mg/0.5 mL 30 mg subcut Q8W 05/29/25 History subcutaneous syringe (Fasenra) nystatin 100,000 unit/mL oral 400,000 unit (4 mL) bucc al .qid 7 05/29/25 Unknown Rx suspension days #250 mL polyethylene glycol 3350 17 4 g PO ONCE 05/29/2505/30 History gram/dose oral powder (Miralax) vedolizumab 300 mg intravenous mg .Route 05/29/2508/19 History solution (Entyvio) albuterol sulfate 90 mcg/actuation 2 inh inhalation Q4 H PRN shortness 05/31/25 05/17/25 History breath activated powder inhaler of breath bisacodyl 5 mg tablet 5 mg PO DAILY 05/31/2505/30 History clotrimazole 10 mg alexandra 10 mg mucous membrane 4X/DAY 05/31/25 Unknown History dicyclomine 20 mg tablet 20 mg PO 4X/DAY 05/31/2506/18 History diphenhydramine HCl 12.5 mg/5 mL 6.25 mg PO BID Unknown History oral liquid esomeprazole magnesium 40 mg 40 mg PO DAILY 05/31/25 0 05/31/25 History capsule,delayed release famotidine 20 mg tablet (Acid 20 mg PO DAILY 05/31/25 05/30/25 History Controller) fluconazole 100 mg tablet 100 mg PO Q24H 05/31/25 Unkn own History fluconazole 200 mg tablet 200 mg PO DAILY 10 days #10 tabs 05/31/25 Unknown Rx ipratropium bromide 42 mcg (0.06 2 spray intranasal TI D PRN allergy 05/31/25 05/30/25 History %) nasal spray symptoms lidocaine HCl 2 % mucosal solution 2.5 ml PO BID 05/31 Unknown History (Lidocaine Viscous) prednisone 1 mg tablet 4 mg PO DAILY 05/31/2505/30 History Allergy/AdvReac Type Severity Reaction Status Date / Time adalimumab (From Humira) Allergy itching Verified 05/31/25 07:28 Family History Mother CHF (congestive heart failure) Father Cancer unsure Surgical History History of colonoscopy (~06/2021) Hx of cholecystectomy Social History Smoking Status: Former smoker ROS ROS ED ROS Narrative Constitutional: Denies fever, chills, headaches, lightness, dizziness Eyes, ears, nose, throat: Complains of thrush and pain in his mouth as noted above denies change in vision double vision blurry vision Cardiovascular: Denies chest pain Respiratory: Shortness of breath Abdomen: Denies nausea vomit diarrhea : Denies urinary symptoms Neurological: Denies numbness, wheeze, tingling Musculoskeletal: Denies back pain Skin: Denies any rashes or lesions EXAM Physical Exam Narrative Exam Narrative: General: Patient lying in bed did appear to be uncomfortable secondary to pain of his mouth Head: Atraumatic, normocephalic Eyes, ears, nose and throat: Patient has what appears to be thrush on his tongueand along the back posterior pharynx Neck: Soft, supple, trachea midline Cardiovascular: Regular rate and rhythm Respiratory: Clear to auscultation bilaterally Extremities: +5/5 strength of the bilateral upper and lower extremities Neurological: Patient follow commands knew that she was at [facility] years 2024 Skin: Warm, dry, tact no rashes lesions noted Const Vital Signs: 05/31/25 07:25 05/31/25 07:25 Temperature 97.8 F Temperature Source Oral Pulse Rate 94 Respiratory Rate 18 Respiratory Pattern Normal Blood Pressure 143/72 H Blood Pressure Mean 95 Pulse Ox 98 Oxygen Delivery Method Room Air MDM MDM MDM Narrative Medical decision making narrative: Patient is a 79-year-old male who presents to the Emergency Department chief complaint of oral thrush. On differential diagnose includes but not limited to oral thrush, diabetes, strep throat although I have low suspicion for this. Once workup is obtained reviewed he will be reevaluated. Patient's CBC reviewed showed a white blood count of 7.5, he was 14.1, platelet count 219. Patient sodium was 138, potassium normal 3.9, creatinine normal at 1.06. Patient's anion gap was normal at 14, glucose was noted to be 109. Patient's AST and ALT were 35 and 41 respectively. Patient urinalysis showed normal glucose no ketones no evidence of infection. Pharmacy did review all medications for his oral thrush including fluconazole, nystatin,Clotrimazole and given that his symptoms are worsening not improving aswell as not tolerating oral intake I do believe he will warrant admission for IVantibiotics. Will discuss case with hospitalist for admission. Discussed case with hospitalist Dr. Hinson who states that the patient does not need admitted to the hospital and he is recommending increasing the doses ofthe Diflucan and the fluconazole and have him follow-up with his doctor in outpatient setting. I went back in and discussed this plan with the patient he was unhappy with thisplan but understood with our discussions that I cannot admit him myself. Advised him to follow-up with his sales and training specialist as well as primary care physician return with worsening symptoms or any concerns. He is agreeable to plan all course concerns answered he is discharged home in stable condition. Lab Data Labs: Laboratory Results - last 24 hr 05/31/25 05/31/25 07:51 08:18 WBC 7.5 RBC 4.47 L Hgb 14.1 Hct 42.0 MCV 94.0 MCH 31.5 MCHC 33.6 RDW Std Deviation 46.4 H RDW Coeff of Sandra 13.6 Plt Count 219 MPV 9.3 Immature Gran % (Auto) 1.200 H Neut % (Auto) 60.4 Lymph % (Auto) 28.0 [place] % (Auto) 9.6 Eos % (Auto) 0.0 Baso % (Auto) 0.8 Absolute Neuts (auto) 4.5 Absolute Lymphs (auto) 2.10 Nucleated RBC % 0 Sodium 138 Potassium 3.9 Chloride 107 Carbon Dioxide 16.6 L Anion Gap 14 BUN 14 Creatinine 1.06 Estim Creat Clear Calc 73.06 Est GFR (MDRD) Non-Af 72 BUN/Creatinine Ratio 13.6 Glucose 109 H Calcium 9.0 Total Bilirubin 0.63 AST 35 ALT 41 Alkaline Phosphatase 90 Total Protein 7.0 Albumin 4.0 Globulin 2.9 Albumin/Globulin Ratio 1.4 Urine Color Yellow Urine Clarity Clear Urine pH 6.0 Ur Specific [place] 1.020 Urine Protein 30 H Urine Glucose (UA) Normal Urine Ketones Negative Urine Occult Blood Negative Urine Nitrite Negative Urine Bilirubin Negative Urine Urobilinogen Normal Ur Leukocyte Esterase Negative Urine RBC 0 SEEN Urine WBC 0-5 SEEN Ur Squamous Epith Cells 0 SEEN Urine Bacteria RARE Hyaline Casts 0-5 SEEN Urine Mucus 2+ Discharge Plan Triage Chief Complaint: Other, Pain/Inj ED Provider: Lewis Turpin Dx/Rx/DC Orders Clinical Impression: Oral thrush Prescriptions: New fluconazole 200 mg tablet 200 mg PO DAILY 10 Days Qty: 10 0RF No Action Fasenra 10 mg/0.5 mL syringe 30 mg subcut Q8W Rx Instructions: start week 16 of treatment Entyvio 300 mg recon soln .Route Rx Instructions: every 8 weeks polyethylene glycol 3350 [Miralax] 17 gram/dose powder 4 g PO ONCE nystatin 100,000 unit/mL suspension 400,000 unit buccal .qid 7 Days Qty: 250 0RF Rx Instructions: By mouth 4 times daily; swish in the mouth and retain for as long as possible (several minutes) before swallowing- once symptoms resolve continue to use for 48 hours diphenhydramine HCl 12.5 mg/5 mL liquid 6.25 mg PO BID fluconazole 100 mg tablet 100 mg PO Q24H ipratropium bromide 42 mcg (0.06 %) spray,non-aerosol 2 spray INTRANASAL TID PRN (Reason: allergy symptoms) lidocaine HCl [Lidocaine Viscous] 2 % solution 2.5 ml PO BID albuterol sulfate 90 mcg/actuation aerosol powdr breath activated 2 inh inhalation Q4H PRN (Reason: shortness of breath) prednisone 1 mg tablet 4 mg PO DAILY dicyclomine 20 mg tablet 20 mg PO 4X/DAY famotidine [Acid Controller] 20 mg tablet 20 mg PO DAILY esomeprazole magnesium 40 mg capsule,delayed release(DR/EC) 40 mg PO DAILY bisacodyl 5 mg tablet 5 mg PO DAILY clotrimazole 10 mg alexandra 10 mg mucous membrane 4X/DAY Primary Care Provider: Jaycob Yang Referrals: Jaycob Yang MD [Primary Care Provider] - Activity Restrictions/Additional Instructions: Take the new prescription of sent to your pharmacy as prescribed the dose will be increased by 100 mg you need to take the entirety of this medication do not stop taking it if you feel that this is not working. Use the nystatin as well. Follow-up your doctor in outpatient setting return with any other concerns. Print Language: Faroese Disposition Disposition: Home, Self Care What to do if you have Problems For any increased pain, shortness of breath, bleeding, nausea or vomiting, chestpain, or any unexpected problems, contact your Primary Care Provider. Call [facility] ([phone]) or report to the closest Emergency Room. Call 911 if necessary. 05/31/25 1059 <Electronically signed by Lewis Turpin DO> Cosigner Signature (if applicable): CC: Dr. 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 Screen for colon cancer Special screening for malignant neoplasms, colon Crohn's disease of small and large intestines with complication (HCC) documented [facility] this [facility] Author Geovani Friend [facility] Note Date/Time March 08, 2025 5:2 8pm [facility] Medical Records Department [address] [place] [address] History & Physical Exam 03/08/25 1726 MR#: [id number] Acct: [id number] Name: LIBRADO GUILLEN Rep #:[id number] : 1945 79 From: Geovani Ramirez DO PCP: Dr. Jaycob Yang MD Status:REG SD C Location: [place] [address] HPI - General General Date of Admission: 03/08/25 Date of Service: 03/08/25 Chief Complaint: food impaction HPI Narrative LIBRADO GUILLEN, is a 79 M who presents with esophageal food impaction that occurred today. Patient states he was eating lunch approximately 40 minutes prior to arrival. Patient states he was eating some chicken and it felt like itgot stuck in his throat. Patient states it still feels like it is stuck. Patient states he is unable to swallow water. Patient states he feels the watergoing part way down and then he has to spit it back up. Patient denies any difficulty breathing. Patient denies any fevers or chills. Patient denies any chest pain. Patient states he has a history of Zenker's diverticulum and had surgery. Patient states that they opened it up but did not remove it. [facility] Medical History Zenkers diverticulum BPH (benign prostatic hyperplasia) History of DVT (deep vein thrombosis) GERD (gastroesophageal reflux disease) Former smoker Sleep apnea Chest pain Asthma IBS (irritable bowel syndrome) Crohn's disease Home Medications ?Medication ?Instructions ?Recorded ?Last Taken ?Type fluticasone furoate 200 1 ea IH DAILY 04/04/1904/19 09:00 History mcg-vilanterol 25 mcg/dose inhalation powder (Breo Ellipta) albuterol sulfate 2.5 mg/3 mL 1 puff inhalation Q4H LA N PRN Sob 11/30/19 Unknown History (0.083 %) solution for nebulization &/Or Wheezing bisacodyl 5 mg tablet 10 mg PO DAILY constipation 04/19/21 Unknown History mesalamine 400 mg capsule,delayed 2,400 mg PO DAILY Cr ohns 04/19/21 04/19/21 History release omeprazole 40 mg capsule,delayed 40 mg PO BID reflux 0 04/19/21 04/19/21 16:00 History release polyethylene glycol 3350 17 gram 17 g PO DAILY constip ation 04/19/21 04/19/21 History oral powder packet hydrocodone-acetaminophen 5-325mg 1 tab PO Q6H PRN david n 3 days #12 03/29/22 Unknown Rx 5mg-325mg tabs Allergy/AdvReac Type Severity Reaction Status Date / Time adalimumab (From Humira) Allergy itching Verified 03/08/25 14:11 Family History Mother CHF (congestive heart failure) Father Cancer unsure Surgical History History of colonoscopy (~06/2021) Hx of cholecystectomy Social History Smoking Status: Former smoker ROS Constitutional Constitutional: Denies fatigue, fever(s), poor appetite, weight gain or weight loss Gastrointestinal Gastrointestinal: Denies belching, bloating, change in bowel habits, change in stool character, chewing difficulty, coffee ground emesis, constipation, cramping, diarrhea, dyspepsia, dysphagia, early satiety, excessive flatus, fecalincontinence, heartburn, hematemesis, hematochezia, hemorrhoids, loose stools, melena, nausea, odynophagia, rectal bleeding, tenesmus, vomiting or weight changes Vital Signs Vital Signs Vital Signs: 03/08/25 14:08 03/08/25 14:19 03/08/25 15:11 Temperature 97.9 F Temperature Source Temporal Pulse Rate 96 85 Respiratory Rate 18 16 Respiratory Effort Normal Non-Labored Blood Pressure 167/78 H 126/73 H Blood Pressure Mean 107 90 Blood Pressure Source Blood Pressure Position Blood Pressure Location Pulse Ox 96 99 Oxygen Delivery Method Room Air Room Air 03/08/25 16:10 03/08/25 16:16 03/08/25 16:37 Temperature 98.7 F 98.7 F 98.7 F Temperature Source Oral Pulse Rate 74 78 78 Respiratory Rate 16 16 16 Respiratory Effort Blood Pressure 155/68 H 158/68 H 158/68 H Blood Pressure Mean 97 98 Blood Pressure Source Monitor Blood Pressure Position Semi-Fowlers Blood Pressure Location Right Arm Pulse Ox 97 99 99 Oxygen Delivery Method Room Air Weight Weight: 246 lb 0.574 oz Body Mass Index (BMI) 35.3 Physical Exam Const alert, oriented x3, no apparent distress and healthy appearing General Appearance: cooperative GI normal to inspection, nondistended, normoactive bowel sounds, soft to palpation,non-tender and non-distended Percussion: normal to percussion Rectal Exam: deferred Assessment & Plan Assessment/Plan (1) Esophageal obstruction due to food impaction: PLAN: Patient will undergo EGD with food impaction removal and possible esophageal dilation. He was explained alternatives, risk and benefits include understanding bleeding, infection, sepsis, perforation, need for charge and . He will have an ASA of 3.. 03/08/25 1728 <Electronically signed by Geovani Ramirez DO> Cosigner Signature (if applicable): CC: Dr. Jaycob Yang MD; Geovani Ramirez DO~ Signed [facility] Work Phone: Hospital Discharge instructions Additional Instructions Please return for any worsening symptoms. You had a negative chest pain work-up today. Best of luck in the upcoming weeksW[facility] Work Phone: Hospital Discharge instructions Additional Instructions Please follow-up for an outpatient stress test. In the meantime if symptoms worsen return to the ER for reevaluation.[facility] Work Phone: Hospital Discharge instructionsAdditional Instructions Take the new prescription of sent to your pharmacy as prescribed the dose will be increased by 100 mg you need to take the entirety of this medication do not stop taking it if you feel that this is not working. Use the nystatin as well. Follow-up your doctor in outpatient setting return with any other concerns.[facility] Work Phone: Reason for referral (narrative)No reason for referral information availableWClermont County Hospital Work Phone: Summary Purpose Family History No Family History Records Found Relationship Condition Age at Onset Recorded Date/T tesfaye mother Congestive heart failure Unknown father Malignant neoplasm Unknown Advance Directives No Advanced Directives Records Found Advance Directive Response Recorded Date/ Time Name of Medical Power of Public Speaker ? November 26, 2021 10:51am Advance Directives Yes April 21 7:08pm Living Will No December 26 2:55pm Power of Public Speaker No December 26, 2021 2:55pm Advance Directive Response Recorded Date/ Time Advance Directives Yes April 21 4 7:08pm Living Will Yes March 29, 2022 1: 48pm Power of Public Speaker Yes March 29, 2022 1:48pm Advance Directive Response Recorded Date/ Time Name of Medical Power of Public Speaker ? October 12, 2022 6:51pm Advance Directives Yes April 21 4 6:08pm Living Will Yes October 12, 2 022 6:51pm Power of Public Speaker Yes October 12, 2022 6:51pm Advance Directive Response Recorded Date/ Time Name of Medical Power of Public Speaker ? October 12, 2022 6:51pm Advance Directives Yes April 21 6:08pm Living Will No January 07, 2 023 1:30pm Power of Public Speaker No January 07, 2023 1:30pm Advance Directive Response Recorded Date/ Time Advance Directives Yes April 21 4 7:08pm Living Will No January 07, 2 023 2:30pm Power of Public Speaker No January 07, 2023 2:30pm Advance Directive Response Recorded Date/ Time Advance Directives Yes April 21 4 6:08pm Living Will No December 09 4:36pm Power of Public Speaker No December 09, 2023 4:36pm Advance Directive Response Recorded Date/ Time Advance Directives Yes April 21 7:08pm Advance Directive Response Recorded Date/ Time Living Will No March 08, 2025 2:34pm Do you have a Healthcare Power of Public Speaker? No March 08, 2025 2:34pm Advance Directives Yes April 21 7:08pm Advance Directive Response Recorded Date/ Time Living Will No March 08, 2025 2:34pm Do you have a Healthcare Power of Public Speaker? No March 08, 2025 2:34pm Do you have a Healthcare Power of Public Speaker? No May 31, 2025 7:25am Advance Directives Yes April 21 7:08pm Procedure Findings Note HNO ID: [id number]: Donald Teran Jr.Service: Hand SurgeryAuthor Type: PhysicianType: Operative ReportFiled: 10/23/2018 2:09 PMNote Text:OPERATIVE NOTESURGERY DATE: 10/23/2018Incision/Procedure Start Time: 1353Incision Close/Procedure End Time: 1405Surgeon(s)/Proceduralist(s) and Manager [employer](s):Robin/ Shantel PGY-2Procedures:Right Carpal Tunnel Release, CPT 40601Hchqwnxdbl: MAC and LocalFindings: See belowEstimated Blood Loss: Minimal mlsSpecimens: NoneComplications: NonePreop Diagnosis: Right Carpal Tunnel SyndromePostop Diagnosis: SameCLINICAL SCENARIO: This is a 73 year oldtue-uodp-pge male, who presented [facility] office with signs and symptoms consistent with right carpal tunnelsyndrome. I did offer her right carpal tunnel release. I explained therisks, benefits, options, and potential complications of surgery. Heunderstood these risks and agreed to proceed.DETAILS OF OPERATION: The patient's right palm was marked with indelibleink in the preoperative holding area. He w (more content not included)... Chief Complaint and Reason for Visit Chief Complaint SOB LACERATION LEFT ARM K22.9 Disease of esophagus, unspecified Chief Complaint chest pain, shortnes s of breath Chief Complaint chest pain, shortnes s of breath chest pain, sob Chief Complaint chest pain, sob M79.604 Chief Complaint chest pain Chief Complaint Admit Date diarrhea February 03, 2025 2:3 1pm Chief Complaint Admit Date diarrhea February 03, 2025 2:3 1pm FOOD IN THROAT March 08, 2025 4:3 1pm FOOD IN THROAT March 08, 2025 5:2 6pm Reason for Visit Admit Date Esophageal obstruction due to food impac tion March 08, 2025 4:31pm Chief Complaint Admit Date diarrhea February 03, 2025 2:3 1pm FOOD IN THROAT March 08, 2025 4:3 1pm FOOD IN THROAT March 08, 2025 5:2 6pm ACUTE PHARYNGITIS May 19, 2025 3:09 pm Chief Complaint Admit Date diarrhea February 03, 2025 2:3 1pm FOOD IN THROAT March 08, 2025 4:3 1pm FOOD IN THROAT March 08, 2025 5:2 6pm ACUTE PHARYNGITIS May 19, 2025 3:09 pm CONCERN FOR THRUSH May 29, 2025 1:02p m Chief Complaint Admit Date diarrhea February 03, 2025 2:3 1pm FOOD IN THROAT March 08, 2025 4:3 1pm FOOD IN THROAT March 08, 2025 5:2 6pm ACUTE PHARYNGITIS May 19, 2025 3:09 pm CONCERN FOR THRUSH May 29, 2025 1:02p m oral May 31, 2025 7:23a m Reason for Visit Admit Date Esophageal obstruction due to food impac tion March 08, 2025 4:31pm Oral thrush May 29, 2025 1:02p m Additional Source Comments (unrecognized sect ion and content) No Status Records FoundNo Status Records FoundNo Status Records FoundNo Status Records FoundNo Status Records FoundNo Status Records FoundNo Status Records FoundNo Status Records Found INFORMATION SOURCE (unrecogn ized section and content) DATE CREATED AUTHOR 11/17/2018 [facility] DATE CREATED AUTHOR AUTHOR'S ORGANIZ ATION 11/17/2018 [facility] DATE CREATED AUTHOR AUTHOR'S ORGANIZ ATION 07/16/2020 [facility] ([place]) DATE CREATED AUTHOR AUTHOR'S ORGANIZ ATION 12/26/2021 [facility] DATE CREATED AUTHOR AUTHOR'S ORGANIZ ATION 03/28/2022 [facility] DATE CREATED AUTHOR AUTHOR'S ORGANIZ ATION 12/16/2024 [facility] DATE CREATED AUTHOR AUTHOR'S ORGANIZ ATION 02/13/2025 [facility] DATE CREATED AUTHOR AUTHOR'S ORGANIZ ATION 06/08/2025 [facility] Goals (unrecognized section and content) Goals may be documented in a n alternate sectionGoals may be documented in an alternate sectionGoals may be documented in an alternate sectionGoals may be documented in an alternate sectionGoals may be documented in an alternate sectionGoals may be documented in an alternate sectionGoals may be documented in an alternate section Care Teams (unrecognized sec tion and content) Team Status: Active Member Role Status Dates Dr. Shannan Raymundo MD Family Provider Active Marlene Corea , DO Primary Care Provider Active Team Status: Inactive Member Role Status Dates Marlene Corea , DO Primary Care Provider Active Dr. Camilo Ge , DO Attending Provider, Emergency Pro vider Active Team Status: Inactive Member Role Status Dates Marlene M Nahomy , DO Primary Care Provider Active Dr. Zurdo Alcala MD Emergency Provider Active Team Status: Active Member Role Status Asha Corea DO Primary Care Provider Active Dr. He Diaz MD Attending Provider Active Team Status: Inactive Member Role Status Asha Corea DO Primary Care Provider Active Dr. Zurdo Alcala MD Attending Provider, Emergency Provider Active Team Status: Inactive Member Role Status Asha Corea DO Primary Care Provider, Attending Provider Active Team Status: Active Member Role Status Asha Corea DO Primary Care Provider Active Dr. Valerie Conklin MD Attending Provider, Referring P el Active Team Status: Inactive Member Role Status Asha Corea DO Primary Care Provider Active Dr. 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 Valerie Conklin MD Attending Provider Active Start: November 03, 2024 End: November 03, 2024 Dr. Valerie Conklin MD Referring Provider Active Start: November 03, 2024 End: November 03, 2024 Team Status: Inactive Member Role Status Asha Yang MD Primary Care Provider Active St art: February 03, 2025 End: February 03, 2025 Ed Physician Provider Emergency Provider Active Start: February 03, 2025 End: February 03, 2025 Team Status: Inactive Member Role Status Asha Yang MD Primary Care Provider Active St art: February 03, 2025 End: February 03, 2025 Ed Physician Provider Attending Provider Active Start: February 03, 2025 End: February 03, 2025 Ed Physician Provider Emergency Provider Active Start: February 03, 2025 End: February 03, 2025 Team Status: Active Member Role Status Asha Yang MD Primary Care Provider Active St art: March 08, 2025 Jaycob Yang MD Referring Provider Active Start : March 08, 2025 Dr. Barrington Sanchez , Emergency Provider Active Start: March 08, 2025 Dr. Geovani Ramirez DO Attending Provider Active Start: March 08, 2025 Team Status: Active Member Role Status Asha Yang MD Primary Care Provider Active St art: March 08, 2025 Jaycob Yang MD Referring Provider Active Start : March 08, 2025 Dr. Barrington Sanchez DO Emergency Provider Active Start: March 08, 2025 Dr. Geovani Ramirez DO Attending Provider Active Start: March 08, 2025 Dr. Geovani Ramirez DO Other Provider Active St art: March 08, 2025 Team Status: Inactive Member Role Status Asha Yang MD Primary Care Provider Active St art: March 08, 2025 End: March 08, 2025 Jaycob Yang MD Referring Provider Active Start : March 08, 2025 End: March 08, 2025 Dr. Barrington Sanchez DO Emergency Provider Active Start: March 08, 2025 End: March 08, 2025 Dr. Geovani Ramirez DO Attending Provider Active Start: March 08, 2025 End: March 08, 2025 Team Status: Active Member Role/Relationship Status Asha Yang MD Primary Care Provider Active Team Status: Inactive Member Role/Relationship Status Asha Yang MD Primary Care Provider Active St art: February 03, 2025 End: February 03, 2025 Ed Physician Provider Attending Provider Active Start: February 03, 2025 End: February 03, 2025 Ed Physician Provider Emergency Provider Active Start: February 03, 2025 End: February 03, 2025 Team Status: Inactive Member Role/Relationship Status Asha Yang MD Primary Care Provider Active St art: March 08, 2025 End: March 08, 2025 Jaycob Yang MD Referring Provider Active Start : March 08, 2025 End: March 08, 2025 Dr. Barrington Sanchez DO Emergency Provider Active Start: March 08, 2025 End: March 08, 2025 Dr. Geovani Ramirez DO Attending Provider Active Start: March 08, 2025 End: March 08, 2025 Team Status: Active Member Role/Relationship Status Asha Yang MD Primary Care Provider Active St art: March 08, 2025 Jaycob Yang MD Referring Provider Active Start : March 08, 2025 Dr. Barrington Sanchez DO Emergency Provider Active Start: March 08, 2025 Dr. Geovani Ramirez DO Attending Provider Active Start: March 08, 2025 Dr. Geovani Ramirez , Other Provider Active St art: March 08, 2025 Team Status: Inactive Member Role/Relationship Status Asha Yang MD Primary Care Provider Active St art: May 19, 2025 End: May 19, 2025 CANDACE Knowles Attending Provider Active Star t: May 19, 2025 End: May 19, 2025 CANDACE Knowles Referring Provider Active Star t: May 19, 2025 End: May 19, 2025 Team Status: Active Member Role/Relationship Status Asha Yang MD Primary Care Provider Active St art: May 27, 2025 Jaycob Yang MD Attending Provider Active Start : May 27, 2025 Jaycob Yang MD Referring Provider Active Start : May 27, 2025 Team Status: Inactive Member Role/Relationship Status Asha Yang MD Primary Care Provider Active St art: May 29, 2025 End: May 29, 2025 Jaycob Yang MD Referring Provider Active Start : May 29, 2025 End: May 29, 2025 KEILY Nichole Attending Provider Active Start: May 29, 2025 End: May 29, 2025 Team Status: Inactive Member Role/Relationship Status Asha Yang MD Primary Care Provider Active St art: May 31, 2025 End: May 31, 2025 Dr. Lewis Turpin DO Emergency Provider Active Start: May 31, 2025 End: May 31, 2025 Team Status: Inactive Member Role/Relationship Status Asha Yang MD Primary Care Provider Active St art: May 27, 2025 End: May 27, 2025 Jaycob Yang MD Attending Provider Active Start : May 27, 2025 End: May 27, 2025 Jaycob Yang MD Referring Provider Active Start : May 27, 2025 End: May 27, 2025 Source Comments (unrecognize d section and content) In the event this informatio n is protected by the [facility] Confidentiality of Alcohol and Drug Abuse Patient Records regulations: The Federal rules restrict any use of the information to criminally investigate or prosecute any alcohol or drug abuse patient.[facility] Reason for Visit (unrecogniz ed section and content) Reason Comments Consult EGD and colonoscopy consultation. Specialty Diagnoses / Procedures Referred By Contac t Referred To Contact General Surgery / GENERAL SURGERY Diagnoses consult for colonoscopy and EGD Procedures [facility] lAexx Link MD [address] [place] [address] Referral ID Status Reason Start Date Expiration Date Visits Re quested Visits Authorized [id number] Closed 08/11/2024 10/10/2024 1 1 FOR RECORDS PERTAINING TO PATIENTS WHO ARE [...] BE BASED ON THE PRIMARY CLINICAL RECORDS. [employer] [facility]. provides no warranty or guarantee of the accuracy or completeness of information in this document.
--- OUTSIDE RECORDS SUMMARY | 2025-06-08 22:34 | XMS RPT_ITS | CCD ---
Author Organization [facility] ion [facility] Care Team Providers Care Hands And Dial Inspector Name Role Phone LANZINGER , TONIO DONALDSON [...] Unavailable Guillen, Shannan H Unavailable Unavailable GURAN, BRIDGTE Unavailable Unavailable LANZINGER, TONIO Unavailable Unavailable Guillen, [...] 0 Dr. Barrington Sanchez DO Emergency Provider Dr. Geovani Ramirez DO Attending Provider Dr. Geovani Ramirez DO Other Provider [phone] Barrington Mclaughlin Attending Provider Barrington Mclaughlin Referring Provider Jaycob Yang MD Attending Provider [phone] Lashawn Gutierrez Attending Provider Dr. Lewis Turpin DO Emergency Provider Lewis Turpin Attending Unavailable Trey, Chalon Primary [...] adalimumab; Translations: [ADALIMUMAB] Drug Allergy 1 Itching [facility] (8 sources) Ibuprofen; Translations: [IBUPROFEN] Drug Allergy 1 GI Upset [facility] (1 source) Ibuprofen Drug Allergy [facility] Repository (2 sources) azaTHIOprine; Translations: [AZATHIOPRINE] Drug Allergy 4 GI Upset, Vomiting [facility] (2 sources) Escitalopram; Translations: [ESCITALOPRAM] Drug Allergy 0 Other: See Comments [facility] (1 source) adalimumab Drug Allergy 5 [facility] Repository Medications Current Medications Medication Drug Class(es) [...] 2025 12:00am take 1 capsule by mo [facility] twice daily before mealtime esomeprazole (NEXIUM) [...] spray (2 sources) Anticholinergic Start: 05-31-2025 Ipratropium [place] 42 mcg (0.06 %) spray,non-aerosol Active 2 [...] times a day with meals. Active nystatin 605897 unt/ml oral suspension (2 sources) Polyene Antifungal Start: 05-29-2025 Nystatin 10 0,000 unit/mL suspension Active 228536 U BUCCAL .qid 250 7 0 May 29, 2025 12:00am June 04, 2025 12:00am By mouth 4 times daily; swish in the mouth and retain for as long as possible (several minutes) before swallowing- once symptoms resolve continue to use for 48 hours polyethylene glycol 3350 69042 mg powder for oral solution (17 sources) [...] )on 06-08-2025 BUN/CRE 17.3 RATIO Normal 10-20 [facility] Comment on above: Performed By: #### L 101.9900, L500.2500, L501.6710, L100.0100 ####[facility] [address] [place], [address] Calcium [Mass/Vol] 9.2 mg/dL Normal 7.6-11.0 [facility] Comment on above: Performed By: #### L 101.9900, L500.2500, L501.6710, L100.0100 ####[facility] [address] [place], [address] Chloride [Moles/Vol] 107 mmol/L Normal 98-108 [facility] Comment on above: Performed By: #### L 101.9900, L500.2500, L501.6710, L100.0100 ####[facility] [address] [place], [address] CO2 [Moles/Vol] 21.9 mmol/L Normal 21.0-32.0 [facility] Comment on above: Performed By: #### L 101.9900, L500.2500, L501.6710, L100.0100 ####[facility] [address] [place], [address] Creatinine [Mass/Vol] 1.00 mg/dL Normal 0.70-1.20 [facility] Comment on above: Performed By: #### L 101.9900, L500.2500, L501.6710, L100.0100 ####[facility] [address] [place], [address] ECRCL 78.09 ml/min Normal 50-250 [facility] Comment on above: Performed By: #### L 101.9900, L500.2500, L501.6710, L100.0100 ####[facility] [address] [place], [address] GAP 11 Normal 5-15 [facility] Comment on above: Performed By: #### L 101.9900, L500.2500, L501.6710, L100.0100 ####[facility] [address] [place], [address] GFR/1.73 sq M.predicted among non-blacks MDRD (S/P/Bld) [Vol rate/Area] 78 mL/min/{1.73_m2} Normal >60 [facility] Comment on above: Result Comment: mL/m in/1.73m2 CKD-EPI Creatinine Equation (2020) Performed By: #### L 101.9900, L500.2500, L501.6710, L100.0100 ####[facility] [address] [place], [address] Glucose [Mass/Vol] 90 mg/dL Normal 70-99 [facility] Comment on above: Performed By: #### L 101.9900, L500.2500, L501.6710, L100.0100 ####[facility] [address] [place], [address] Potassium [Moles/Vol] 4.2 mmol/L Normal 3.3-5.1 [facility] Comment on above: Result Comment: Hemo lysis present, Results??could be affected. ?? Performed By: #### L 101.9900, L500.2500, L501.6710, L100.0100 ####[facility] [address] [place], [address] Sodium [Moles/Vol] 140 mmol/L Normal 133-145 [facility] Comment on above: Performed By: #### L 101.9900, L500.2500, L501.6710, L100.0100 ####[facility] [address] [place], [address] Urea nitrogen [Mass/Vol] 17 mg/dL Normal 4-19 [facility] Comment on above: Performed By: #### L 101.9900, L500.2500, L501.6710, L100.0100 ####[facility] [address] [place], [address] CBC W/Diff, Automatedon 07-1 -2024 Absolute Lymph 1.48 X10 3/uL Normal 0.83-4.51 [facility] Comment on above: Performed By: #### L 101.9900, L500.2500, L501.6710, L100.0100 ####[facility] [address] [place], [address] Absolute Neut 7.6 X10 3/uL Normal 2.0-7.7 [facility] Comment on above: Performed By: #### L 101.9900, L500.2500, L501.6710, L100.0100 ####[facility] [address] [place], [address] Basophils/100 WBC (Bld) 0.4 % Normal 0-1 [facility] Comment on above: Performed By: #### L 101.9900, L500.2500, L501.6710, L100.0100 ####[facility] [address] [place], [address] Eosinophils/100 WBC (Bld) 0.0 % Normal 0-5 [facility] Comment on above: Performed By: #### L 101.9900, L500.2500, L501.6710, L100.0100 ####[facility] [address] [place], [address] Erythrocyte distribution width (RBC) [Ratio] 13.3 % Normal 11.6-14.6 [facility] Comment on above: Performed By: #### L 101.9900, L500.2500, L501.6710, L100.0100 ####[facility] [address] [place], [address] Hematocrit (Bld) [Volume fraction] 38.2 % Low 40-54 [facility] Comment on above: Performed By: #### L 101.9900, L500.2500, L501.6710, L100.0100 ####[facility] [address] [place], [address] Hemoglobin (Bld) [Mass/Vol] 13.3 g/dL Normal 13.0-16.5 [facility] Comment on above: Performed By: #### L 101.9900, L500.2500, L501.6710, L100.0100 ####[facility] [address] [place], [address] IG% 0.800 Normal 0.0-0.9 [facility] Comment on above: Result Comment: IG% - Immature Granulocytes (promyelocytes, myelocytes and metamyelocytes) > 1% indicates that a LEFT SHIFT is Present. Performed By: #### L 101.9900, L500.2500, L501.6710, L100.0100 ####[facility] [address] [place], [address] Lymphocytes/100 WBC (Bld) 14.7 % Low 19-41 [facility] Comment on above: Performed By: #### L 101.9900, L500.2500, L501.6710, L100.0100 ####[facility] [address] [place], [address] MCH (RBC) [Entitic mass] 32.1 pg High 27.0-32.0 [facility] Comment on above: Performed By: #### L 101.9900, L500.2500, L501.6710, L100.0100 ####[facility] [address] [place], [address] MCHC (RBC) [Mass/Vol] 34.8 g/dL Normal 32-36 [facility] Comment on above: Performed By: #### L 101.9900, L500.2500, L501.6710, L100.0100 ####[facility] [address] [place], [address] MCV (RBC) [Entitic vol] 92.3 fL Normal 80-94 [facility] Comment on above: Performed By: #### L 101.9900, L500.2500, L501.6710, L100.0100 ####[facility] [address] [place], [address] Monocytes/100 WBC (Bld) 8.2 % Normal 0-10 [facility] Comment on above: Performed By: #### L 101.9900, L500.2500, L501.6710, L100.0100 ####[facility] [address] [place], [address] Neutrophils/100 WBC (Bld) 75.9 % High 47-70 [facility] Comment on above: Performed By: #### L 101.9900, L500.2500, L501.6710, L100.0100 ####[facility] [address] [place], [address] Nucleated RBC (Bld) [#/Vol] 0 10*3/uL Normal 0-5 [facility] Comment on above: Performed By: #### L 101.9900, L500.2500, L501.6710, L100.0100 ####[facility] [address] [place], [address] Platelet mean volume (Bld) [Entitic vol] 9.2 fL Normal 6.2-12.0 [facility] Comment on above: Performed By: #### L 101.9900, L500.2500, L501.6710, L100.0100 ####[facility] [address] [place], [address] Platelets (Bld) [#/Vol] 191 10*3/uL Normal 150-450 [facility] Comment on above: Performed By: #### L 101.9900, L500.2500, L501.6710, L100.0100 ####[facility] [address] [place], [address] RBC (Bld) [#/Vol] 4.14 10*6/uL Low 4.6-6.2 [facility] Comment on above: Performed By: #### L 101.9900, L500.2500, L501.6710, L100.0100 ####[facility] [address] [place], [address] RDW SD 45.4 fl High 35.1-43.9 [facility] Comment on above: Performed By: #### L 101.9900, L500.2500, L501.6710, L100.0100 ####[facility] [address] [place], [address] WBC (Bld) [#/Vol] 10.0 10*3/uL Normal 4.4-11.0 [facility] Comment on above: Performed By: #### L 101.9900, L500.2500, L501.6710, L100.0100 ####[facility] [address] [place], [address] CRPon 06-08-2025 C-REACTIVE PROT < 3.00 Normal 0.0-3.0 [facility] Comment on above: Performed By: #### L 101.9900, L500.2500, L501.6710, L100.0100 ####[facility] [address] [place], [address] Erythrocyte Sed Rateon 06-08 SED RATE 15 mm/hr Normal 0-20 [facility] Comment on above: Performed By: #### L 101.9900, L500.2500, L501.6710, L100.0100 ####[facility] [address] [place], [address] Foot min 3 Viewson Foot min 3 Views [facility] [address] [place] [address] Foot min 3 Views MR#: [id number] Acct: [id number] Name: MINDYLIBRADO D Rep #: [id number] : 1945 M 79 From: Gunnar Rooney MD PCP: Dr. Jaycob Yang MD Status: [facility] Study: Foot min 3 Views Date of Exam: 06/08/25 Exam# [id number] Ordering Dr: Barrington Sanchez DO PROCEDURE: FOOT [...] either foot. Moderate osteoarthritis bilaterally. Reading Location: [id number] CC: Dr. Jaycob Yang MD; Dr. Barrington Sanchez DO Hat Block Bench Hand: Signed Normal [facility] Foot min 3 Views [facility] Imaging Services [address] [place], [place] [address] Foot min 3 Views MR#: [id number] Acct: [id number] Name: LIBRADO GUILLEN Rep #: [id number] : 1945 79 From: Gunnar Rooney MD PCP: Dr. Jaycob Yang MD Status: REG ER Study: Foot min 3 Views Date of Exam: 06/08/25 Exam# [id number] Ordering Dr: Barrington Sanchez DO PROCEDURE: FOOT [...] either foot. Moderate osteoarthritis bilaterally. Reading Location: [id number] CC: Dr. Jaycob Yang MD; Dr. Barrington Sanchez DO Hat Block Bench Hand: Signed Normal [facility] Urinalysis, Completeon 06-08 BACTERIA 0 SEEN Normal None Seen [facility] Comment on above: Order Comment: CLEAN CATCH Performed By: #### L 400.0001 #### [facility] [address] [place], [address] EPI,SQUAMOUS 0 SEEN Normal 0-5 [facility] Comment on above: Order Comment: CLEAN CATCH Performed By: #### L 400.0001 #### [facility] [address] [place], [address] Mucus Ql (Urine sed) 0 SEEN Normal [facility] Comment on above: Order Comment: CLEAN CATCH Performed By: #### L 400.0001 #### [facility] [address] [place], [address] RBC 0 SEEN Normal 0-5 [facility] Comment on above: Order Comment: CLEAN CATCH Performed By: #### L 400.0001 #### [facility] [address] [place], [address] WBC 0 SEEN Normal 0-5 [facility] Comment on above: Order Comment: CLEAN CATCH Performed By: #### L 400.0001 #### [facility] [address] [place], [address] Vitamin D 1,25-Dihydroxyon 0 06-08-2025 VIT D 1,25 DIHY 58.6 pg/mL Normal 24.8-81.5 [facility] Comment on above: Order Comment: Order Date: 06/04/25Order Info: [id number] - [id number] Result Comment: Perf ormed at: [address] [id number] [employer]ter: Jamari Mariee MD, Phone: [phone] Performed By: #### L 500.4051, A1120.2629, Y3641.0431 ####[facility] [address] [place], [address] Vitamin D,25 Hydroxyon 06-08 Vitamin D 25-OH 23.5 ng/mL Low 30-100 [facility] Comment on above: Order Comment: CARRINGTON Watson ADD VITD TO BLOOD DRAWN 06/04/25 PER Order Date: 06/04/25Order Info: 0786-1 - CMPOrder Info: 2284-8 - FOLS Result Comment: Ankita min D Status Deficiency: <20 ng/mL (50nmol/L) Insufficiency: 20-30 ng/mL (50-75 nmol/L) Sufficiency: 30-100 ng/mL (75-250 nmol/L) Toxicity: >100 ng/mL (>250 nmol/L) Performed By: #### L 506.0200, L503.0106, L506.1001 ####[facility] [address] [place], [place], [address] Zinc, Plasma or Serumon 05-25 ZINC,PLASMA/SER 106 ug/dL Normal 44-115 [facility] Comment on above: Order Comment: Test( s) 447967-Wdge, Plasma or Serumwas developed and its performance characteristicsdetermined by [employer]. It has not been cleared or approvedby the Food and Drug Administration. Result Comment: Dete ction Limit = 5 Performed at: [address] [id number] [employer]: Jamari Mariee MD, Phone: [phone] Performed By: #### L 500.4050, L3300.9900, L3300.0960 ####[facility] [address] [place], [place], [address] Comprehensive Metabolic Prof ilon 06-04-2025 Albumin [Mass/Vol] 4.1 g/dL Normal 3.4-4.8 [facility] Comment on above: Order Comment: Order Date: 06/04/25Order Info: 0786-1 - CMPOrder Info: [id number] - FOLS Performed By: #### L 500.4050, L3300.9900, L3300.0960 ####[facility] [address] [place], [place], [address] Albumin/Globulin [Mass ratio] 1.4 {ratio} Normal 0.9-2.4 [facility] Comment on above: Order Comment: Order Date: 06/04/25Order Info: 0786-1 - CMPOrder Info: 2284-8 - FOLS Performed By: #### L 500.4050, L3300.9900, L3300.0960 ####[facility] [address] [place], [address] ALK PHOS 79 U/L Normal 40-129 [facility] Comment on above: Order Comment: Order Date: 06/04/25Order Info: 0786-1 - CMPOrder Info: 2284-8 - FOLS Performed By: #### L 500.4050, L3300.9900, L3300.0960 ####[facility] [address] [place], [address] ALT [Catalytic activity/Vol] 53 U/L High <=46 [facility] Comment on above: Order Comment: Order Date: 06/04/25Order Info: 86-1 - CMPOrder Info: 2284-8 - FOLS Performed By: #### L 500.4050, L3300.9900, L3300.0960 ####[facility] [address] [place], [address] AST [Catalytic activity/Vol] 41 U/L High <=37 [facility] Comment on above: Order Comment: Order Date: 06/04/25Order Info: 07- - CMPOrder Info: 2284-8 - FOLS Performed By: #### L 500.4050, L3300.9900, L3300.0960 ####[facility] [address] [place], [address] Bilirubin [Mass/Vol] 0.31 mg/dL Normal 0.00-1.30 [facility] Comment on above: Order Comment: Order Date: 06/04/25Order Info: 0786-1 - CMPOrder Info: 2284-8 - FOLS Performed By: #### L 500.4050, L3300.9900, L3300.0960 ####[facility] [address] [place], [address] BUN/CRE 17.7 RATIO Normal 10-20 [facility] Comment on above: Order Comment: Order Date: 06/04/25Order Info: 0786-1 - CMPOrder Info: 2284-8 - FOLS Performed By: #### L 500.4050, L3300.9900, L3300.0960 ####[facility] [address] [place], [address] Calcium [Mass/Vol] 9.2 mg/dL Normal 7.6-11.0 [facility] Comment on above: Order Comment: Order Date: 06/04/25Order Info: 785- - CMPOrder Info: 2284-8 - FOLS Performed By: #### L 500.4050, L3300.9900, L3300.0960 ####[facility] [address] [place], [address] Chloride [Moles/Vol] 106 mmol/L Normal 98-108 [facility] Comment on above: Order Comment: Order Date: 06/04/25Order Info: 785-11 - CMPOrder Info: 2283-8 - FOLS Performed By: #### L 500.4050, L3300.9900, L3300.0960 ####[facility] [address] [place], [address] CO2 [Moles/Vol] 21.4 mmol/L Normal 21.0-32.0 [facility] Comment on above: Order Comment: Order Date: 06/04/25Order Info: 07 - CMPOrder Info: 2284-8 - FOLS Performed By: #### L 500.4050, L3300.9900, L3300.0960 ####[facility] [address] [place], [address] Creatinine [Mass/Vol] 1.10 mg/dL Normal 0.70-1.20 [facility] Comment on above: Order Comment: Order Date: 06/04/25Order Info: 07- - CMPOrder Info: 2284-8 - FOLS Performed By: #### L 500.4050, L3300.9900, L3300.0960 ####[facility] [address] [place], [address] GAP 13 Normal 5-15 [facility] Comment on above: Order Comment: Order Date: 06/04/25Order Info: 0786-1 - CMPOrder Info: 228-8 - FOLS Performed By: #### L 500.4050, L3300.9900, L3300.0960 ####[facility] [address] [place], [address] GFR/1.73 sq M.predicted among non-blacks MDRD (S/P/Bld) [Vol rate/Area] 69 mL/min/{1.73_m2} Normal >60 [facility] Comment on above: Order Comment: Order Date: 06/04/25Order Info: 0786- - CMPOrder Info: 228-8 - FOLS Result Comment: mL/m in/1.73m2 CKD-EPI Creatinine Equation (2020) Performed By: #### L 500.4050, L3300.9900, L3300.0960 ####[facility] [address] [place], [address] Globulin (S) [Mass/Vol] 2.9 g/dL Normal 2.2-4.2 [facility] Comment on above: Order Comment: Order Date: 06/04/25Order Info: 0786- - CMPOrder Info: 2284-8 - FOLS Performed By: #### L 500.4050, L3300.9900, L3300.0960 ####[facility] [address] [place], [address] Glucose [Mass/Vol] 92 mg/dL Normal 70-99 [facility] Comment on above: Order Comment: Order Date: 06/04/25Order Info: 0786-1 - CMPOrder Info: 2284-8 - FOLS Performed By: #### L 500.4050, L3300.9900, L3300.0960 ####[facility] [address] [place], [address] Potassium [Moles/Vol] 3.8 mmol/L Normal 3.3-5.1 [facility] Comment on above: Order Comment: Order Date: 06/04/25Order Info: 0786-1 - CMPOrder Info: 2284-8 - FOLS Performed By: #### L 500.4050, L3300.9900, L3300.0960 ####[facility] [address] [place], [address] Sodium [Moles/Vol] 141 mmol/L Normal 133-145 [facility] Comment on above: Order Comment: Order Date: 06/04/25Order Info: 0786- - CMPOrder Info: 2284-8 - FOLS Performed By: #### L 500.4050, L3300.9900, L3300.0960 ####[facility] [address] [place], [address] T PROT 6.9 g/dL Normal 5.9-8.4 [facility] Comment on above: Order Comment: Order Date: 06/04/25Order Info: 0786- - CMPOrder Info: 2284-8 - FOLS Performed By: #### L 500.4050, L3300.9900, L3300.0960 ####[facility] [address] [place], [address] Urea nitrogen [Mass/Vol] 20 mg/dL High 4-19 [facility] Comment on above: Order Comment: Order Date: 06/04/25Order Info: 0786-1 - CMPOrder Info: 2284-8 - FOLS Performed By: #### L 500.4050, L3300.9900, L3300.0960 ####[facility] [address] [place], [address] Folates,Serum (Folic Acid)on 06-04-2025 FOLATES,SERUM 8.44 ng/mL Normal 4.60-34.80 [facility] Comment on above: Order Comment: N Performed By: #### L 506.0200, L503.0106, L506.1001 ####[facility] [address] [place], [address] Vitamin B12on 06-04-2025 Cobalamin (Vitamin B12) [Mass/Vol] 393 pg/mL Normal 180-914 [facility] Comment on above: Order Comment: Order Date: 06/04/25Order Info: 0786-1 - CMPOrder Info: 2284-8 - FOLS Performed By: #### L 506.0200, L503.0106, L506.1001 ####[facility] [address] [place], [address] Zinc, Plasma or Serumon ZINC,PLASMA/SER 71 ug/dL Normal 44-115 [facility] Comment on above: Order Comment: Test( s) 488743-Tavu, Plasma or Serum was developed and its performance characteristics determined by [employer]. It has not been cleared or approved by the Food and Drug Administration. Result Comment: Dete ction Limit = 5 Performed at: [address] [id number] [employer]: Jaamri Mariee MD, Phone: [phone] Performed By: #### L 100.0100, L3300.9900, L501.9589 #### [facility] [address] [place], [place], [address] Absolute lymphocyte countOrd ered By: Lewis Turpin on 05-31-2025 Lymphocytes Auto (Unsp spec) [#/Vol] 2.10 10*3/uL 0.83-4.51 [facility] Absolute neutrophil countOrd ered By: Lewis Turpin on 05-31-2025 Neutrophils (Bld) [#/Vol] 4.5 10*3/uL 2.0-7.7 [facility] Anion gap in Serum or Plasma Ordered By: Lewis Turpin on 05-31-2025 Anion gap [Moles/Vol] 14 mmol/L 5-15 [facility] Automated lymphocyte count a s percentage of total leukocytesOrdered By: Lewis Turpin on 05-31-2025 Lymphocytes/100 WBC Auto (Unsp spec) 28.0 % 19-41 [facility] BUN/creatinine ratioOrdered By: Lewis Turpin on 05-31-2025 Urea nitrogen/Creatinine [Mass ratio] 13.6 mg/mg 10-20 [facility] Basophil percentageOrdered B y: Lewis Turpin on 05-31-2025 Basophils/100 WBC (Bld) 0.8 % 0-1 [facility] Bilirubin Test strip Ql (U)O rdered By: Lewis Turpin on 05-31-2025 Bilirubin Ql (U) Negative Negative [facility] Bilirubin, totalOrdered By: Lewis Turpin on 05-31-2025 Bilirubin [Mass/Vol] 0.63 mg/dL 0.00-1.30 [facility] CBC W/Diff, Automatedon Absolute Lymph 2.10 X10 3/uL Normal 0.83-4.51 [facility] Comment on above: Performed By: #### L 500.4050, L100.0100 #### [facility] [address] [place], [address] Absolute Neut 4.5 X10 3/uL Normal 2.0-7.7 [facility] Comment on above: Performed By: #### L 500.4050, L100.0100 #### [facility] [address] [place], [address] Basophils/100 WBC (Bld) 0.8 % Normal 0-1 [facility] Comment on above: Performed By: #### L 500.4050, L100.0100 #### [facility] [address] [place], [address] Eosinophils/100 WBC (Bld) 0.0 % Normal 0-5 [facility] Comment on above: Performed By: #### L 500.4050, L100.0100 #### [facility] [address] [place], [address] Erythrocyte distribution width (RBC) [Ratio] 13.6 % Normal 11.6-14.6 [facility] Comment on above: Performed By: #### L 500.4050, L100.0100 #### [facility] [address] [place], [address] Hematocrit (Bld) [Volume fraction] 42.0 % Normal 40-54 [facility] Comment on above: Performed By: #### L 500.4050, L100.0100 #### [facility] [address] [place], [address] Hemoglobin (Bld) [Mass/Vol] 14.1 g/dL Normal 13.0-16.5 [facility] Comment on above: Performed By: #### L 500.4050, L100.0100 #### [facility] [address] [place], [address] IG% 1.200 High 0.0-0.9 [facility] Comment on above: Result Comment: IG% - Immature Granulocytes (promyelocytes, myelocytes and metamyelocytes) > 1% indicates that a LEFT SHIFT is Present. Performed By: #### L 500.4050, L100.0100 #### [facility] [address] [place], [address] Lymphocytes/100 WBC (Bld) 28.0 % Normal 19-41 [facility] Comment on above: Performed By: #### L 500.4050, L100.0100 #### [facility] [address] [place], [address] MCH (RBC) [Entitic mass] 31.5 pg Normal 27.0-32.0 [facility] Comment on above: Performed By: #### L 500.4050, L100.0100 #### [facility] [address] [place], [address] MCHC (RBC) [Mass/Vol] 33.6 g/dL Normal 32-36 [facility] Comment on above: Performed By: #### L 500.4050, L100.0100 #### [facility] [address] [place], [address] MCV (RBC) [Entitic vol] 94.0 fL Normal 80-94 [facility] Comment on above: Performed By: #### L 500.4050, L100.0100 #### [facility] [address] [place], [address] Monocytes/100 WBC (Bld) 9.6 % Normal 0-10 [facility] Comment on above: Performed By: #### L 500.4050, L100.0100 #### [facility] [address] [place], [address] Neutrophils/100 WBC (Bld) 60.4 % Normal 47-70 [facility] Comment on above: Performed By: #### L 500.4050, L100.0100 #### [facility] [address] [place], [address] Nucleated RBC (Bld) [#/Vol] 0 10*3/uL Normal 0-5 [facility] Comment on above: Performed By: #### L 500.4050, L100.0100 #### [facility] [address] [place], [address] Platelet mean volume (Bld) [Entitic vol] 9.3 fL Normal 6.2-12.0 [facility] Comment on above: Performed By: #### L 500.4050, L100.0100 #### [facility] [address] [place], [address] Platelets (Bld) [#/Vol] 219 10*3/uL Normal 150-450 [facility] Comment on above: Performed By: #### L 500.4050, L100.0100 #### [facility] [address] [place], [address] RBC (Bld) [#/Vol] 4.47 10*6/uL Low 4.6-6.2 [facility] Comment on above: Performed By: #### L 500.4050, L100.0100 #### [facility] [address] [place], [address] RDW SD 46.4 fl High 35.1-43.9 [facility] Comment on above: Performed By: #### L 500.4050, L100.0100 #### [facility] [address] [place], [address] WBC (Bld) [#/Vol] 7.5 10*3/uL Normal 4.4-11.0 [facility] Comment on above: Performed By: #### L 500.4050, L100.0100 #### [facility] [address] [place], [address] Carbon dioxide, total [Moles /volume] in Central venous bloodOrdered By: Lewis Turpin on 05-31-2025 CO2 [Moles/Vol] 16.6 mmol/L Low 21.0-32.0 [facility] Chloride assayOrdered By: Kenneth Turpin on 05-31-2025 Chloride [Moles/Vol] 107 mmol/L 98-108 [facility] Comprehensive Metabolic Prof ilon 05-31-2025 Albumin [Mass/Vol] 4.0 g/dL Normal 3.4-4.8 [facility] Comment on above: Performed By: #### L 500.4050, L100.0100 #### [facility] [address] [place], [address] Albumin/Globulin [Mass ratio] 1.4 {ratio} Normal 0.9-2.4 [facility] Comment on above: Performed By: #### L 500.4050, L100.0100 #### [facility] [address] [place], [address] ALK PHOS 90 U/L Normal 40-129 [facility] Comment on above: Performed By: #### L 500.4050, L100.0100 #### [facility] [address] [place], [address] ALT [Catalytic activity/Vol] 41 U/L Normal <=46 [facility] Comment on above: Performed By: #### L 500.4050, L100.0100 #### [facility] [address] [place], [address] AST [Catalytic activity/Vol] 35 U/L Normal <=37 [facility] Comment on above: Result Comment: Hemo lysis present, Results??could be affected. ?? Performed By: #### L 500.4050, L100.0100 #### [facility] [address] [place], [address] Bilirubin [Mass/Vol] 0.63 mg/dL Normal 0.00-1.30 [facility] Comment on above: Performed By: #### L 500.4050, L100.0100 #### [facility] [address] [place], [address] BUN/CRE 13.6 RATIO Normal 10-20 [facility] Comment on above: Performed By: #### L 500.4050, L100.0100 #### [facility] [address] [place], [address] Calcium [Mass/Vol] 9.0 mg/dL Normal 7.6-11.0 [facility] Comment on above: Performed By: #### L 500.4050, L100.0100 #### [facility] [address] [place], [address] Chloride [Moles/Vol] 107 mmol/L Normal 98-108 [facility] Comment on above: Performed By: #### L 500.4050, L100.0100 #### [facility] [address] [place], [address] CO2 [Moles/Vol] 16.6 mmol/L Low 21.0-32.0 [facility] Comment on above: Performed By: #### L 500.4050, L100.0100 #### [facility] [address] [place], [address] Creatinine [Mass/Vol] 1.06 mg/dL Normal 0.70-1.20 [facility] Comment on above: Performed By: #### L 500.4050, L100.0100 #### [facility] [address] [place], [address] ECRCL 73.06 ml/min Normal 50-250 [facility] Comment on above: Performed By: #### L 500.4050, L100.0100 #### [facility] [address] [place], [address] GAP 14 Normal 5-15 [facility] Comment on above: Performed By: #### L 500.4050, L100.0100 #### [facility] [address] [place], [address] GFR/1.73 sq M.predicted among non-blacks MDRD (S/P/Bld) [Vol rate/Area] 72 mL/min/{1.73_m2} Normal >60 [facility] Comment on above: Result Comment: mL/m in/1.73m2 CKD-EPI Creatinine Equation (2020) Performed By: #### L 500.4050, L100.0100 #### [facility] [address] [place], [address] Globulin (S) [Mass/Vol] 2.9 g/dL Normal 2.2-4.2 [facility] Comment on above: Performed By: #### L 500.4050, L100.0100 #### [facility] [address] [place], [address] Glucose [Mass/Vol] 109 mg/dL High 70-99 [facility] Comment on above: Performed By: #### L 500.4050, L100.0100 #### [facility] [address] [place], [address] Potassium [Moles/Vol] 3.9 mmol/L Normal 3.3-5.1 [facility] Comment on above: Result Comment: Hemo lysis present, Results??could be affected. ?? Performed By: #### L 500.4050, L100.0100 #### [facility] [address] [place], [address] Sodium [Moles/Vol] 138 mmol/L Normal 133-145 [facility] Comment on above: Performed By: #### L 500.4050, L100.0100 #### [facility] [address] [place], [address] T PROT 7.0 g/dL Normal 5.9-8.4 [facility] Comment on above: Performed By: #### L 500.4050, L100.0100 #### [facility] [address] [place], [address] Urea nitrogen [Mass/Vol] 14 mg/dL Normal 4-19 [facility] Comment on above: Performed By: #### L 500.4050, L100.0100 #### [facility] [address] [place], [address] Emergency Department Summary on 05-31-2025 Emergency Department Summary [facility] Medical Records Department [address] [place] [address] Emergency Department Summary 05/31/25 MR#: [id number] Acct: [id number] Name: LIBRADO GUILLEN Rep #: [id number] : 1945 79 From: Lewis Turpin DO [...] days his pain is severe to the [facility] the emergency department and he states that [...] he came here for further evaluation management [facility] Medical History Zenkers diverticulum BPH (benign prostatic [...] follow commands knew that she was at [facility] years 2024 Skin: Wa (more content not included)... Normal [facility] Eosinophil percentageOrdered By: Lewis Turpin on 05-31-2025 Eosinophils/100 WBC (Bld) 0.0 % 0-5 [facility] Erythrocyte distribution wid th ratioOrdered By: Lewis Turpin on 05-31-2025 Erythrocyte distribution width (RBC) [Ratio] 13.6 % 11.6-14.6 [facility] Erythrocyte distribution wid th standard deviationOrdered By: Lewis Turpin on 05-31-2025 Erythrocyte distribution width (RBC) [Ratio] 46.4 fl High 35.1-43.9 [facility] Glomerular filtration rate ( GFR) estimation/1.73 sq m using serum, plasma, or whole bOrdered By: Lewis Turpin on 05-31-2025 GFR/1.73 sq M.predicted among non-blacks MDRD (S/P/Bld) [Vol rate/Area] 72 mL/min/{1.73_m2} >60 [facility] Comment on above: mL/min/1.73m2 CKD-EP I Creatinine Equation (2020) Hematocrit Auto (Bld) [Volum e fraction]Ordered By: Lewis Turpin on 05-31-2025 Hematocrit (Bld) [Volume fraction] 42.0 % 40-54 [facility] Hemoglobin measurementOrdere d By: Lewis Turpin on 05-31-2025 Hemoglobin (Bld) [Mass/Vol] 14.1 g/dL 13.0-16.5 [facility] Hyaline casts LM.LPF (Urine sed) [#/Area]Ordered By: Lewsi Turpin on 05-31-2025 Hyaline casts (Urine sed) [#/Area] 0 /[LPF] 0-5 [facility] Immature granulocytes/100 WB C Auto (Bld)Ordered By: Lewis Turpin on 05-31-2025 Immature granulocytes/100 WBC (Bld) 1.200 % High 0.0-0.9 [facility] Comment on above: IG% - Immature Granu locytes (promyelocytes, myelocytes and metamyelocytes) > 1% indicates that a LEFT SHIFT is Present. Ketones Test strip Ql (U)Ord ered By: Lewis Turpin on 05-31-2025 Ketones Ql (U) Negative Negative [facility] - Chemistry and C hemistry - challengeOrdered By: Lewis Turpin on 05-31-2025 AST [Catalytic activity/Vol] 35 U/L <38 [facility] Comment on above: Hemolysis present, R esults could be affected. MCV (mean corpuscular volume ) determinationOrdered By: Lewis Turpin on 05-31-2025 MCV (RBC) [Entitic vol] 94.0 fL 80-94 [facility] Mean corpuscular hemoglobin (MCH) determinationOrdered By: Lewis Turpin on 05-31-2025 MCH (RBC) [Entitic mass] 31.5 pg 27.0-32.0 [facility] Mean corpuscular hemoglobin concentration (MCHC) determinationOrdered By: Lewis Turpin on 05-31-2025 MCHC (RBC) [Mass/Vol] 33.6 g/dL 32-36 [facility] Mean platelet volume determi nationOrdered By: Lewis Turpin on 05-31-2025 Platelet mean volume (Bld) [Entitic vol] 9.3 fL 6.2-12.0 [facility] Microscopic analysis of urin e for red blood cells (RBC)Ordered By: Lewis Turpin on 05-31-2025 Microscopic analysis of urine for red blood cells (RBC) 0 SEEN /hpf 0-5 [facility] Monocyte percentageOrdered B y: Lewis Turpin on 05-31-2025 Monocytes/100 WBC (Bld) 9.6 % 0-10 [facility] Mucus LM Ql (Urine sed)Order ed By: Lewis Turpin on 05-31-2025 Mucus Ql (Urine sed) 2+ /hpf [facility] Neutrophil percentageOrdered By: Lewis Turpin on 05-31-2025 Neutrophils/100 WBC (Bld) 60.4 % 47-70 [facility] Nitrite Test strip Ql (U)Ord ered By: Lewis Turpin on 05-31-2025 Nitrite Ql (U) Negative Negative [facility] Nucleated red blood cell per centageOrdered By: Lewis Turpin on 05-31-2025 Nucleated RBC/100 WBC (Bld) [Ratio] 0 % 0-5 [facility] Platelet countOrdered By: Kenneth Turpin on 05-31-2025 Platelets (Bld) [#/Vol] 219 10*3/uL 150-450 [facility] Potassium measurement (mass/ volume)Ordered By: Lewis Turpin on 05-31-2025 Potassium (Unsp spec) [Mass/Vol] 3.9 mmol/L 3.3-5.1 [facility] Comment on above: Hemolysis present, R esults could be affected. Protein Test strip Ql (U)Ord ered By: Lewis Turpin on 05-31-2025 Protein Ql (U) 30 mg/dl High Negative [facility] RBC Auto (Bld) [#/Vol]Ordere d By: Lewis Turpin on 05-31-2025 RBC (Bld) [#/Vol] 4.47 10*6/uL Low 4.6-6.2 [facility] Serum creatinine measurement (mass/volume)Ordered By: Lewis Turpin on 05-31-2025 Creatinine [Mass/Vol] 1.06 mg/dL 0.70-1.20 [facility] Serum globulin measurementOr dered By: Lewis Turpin on 05-31-2025 Globulin (S) [Mass/Vol] 2.9 g/dL 2.2-4.2 [facility] Serum glucose measurement (m ass/volume)Ordered By: Lewis Turpin on 05-31-2025 Glucose [Mass/Vol] 109 mg/dL High 70-99 [facility] Serum or plasma alanine alston otransferase (ALT) measurementOrdered By: Lewis Turpin on 05-31-2025 ALT [Catalytic activity/Vol] 41 U/L <47 [facility] Serum or plasma albumin rell urement (mass/volume)Ordered By: Lewis Turpin on 05-31-2025 Albumin [Mass/Vol] 4.0 g/dL 3.4-4.8 [facility] Serum or plasma albumin/glob ulin mass ratioOrdered By: Lewis Turpin on 05-31-2025 Albumin/Globulin [Mass ratio] 1.4 {ratio} 0.9-2.4 [facility] Serum or plasma alkaline carlin sphatase measurementOrdered By: Lewis Turpin on 05-31-2025 ALP [Catalytic activity/Vol] 90 U/L 40-129 [facility] Serum or plasma calcium rell urement (mass/volume)Ordered By: Lewis Turpin on 05-31-2025 Calcium [Mass/Vol] 9.0 mg/dL 7.6-11.0 [facility] Serum or plasma urea nitroge n measurement (mass/volume)Ordered By: Lewis Turpin on 05-31-2025 Urea nitrogen [Mass/Vol] 14 mg/dL 4-19 [facility] Sodium levelOrdered By: Remy Turpin on 05-31-2025 Sodium [Moles/Vol] 138 mmol/L 133-145 [facility] Squamous epithelial cells de tection in urine sediment by light microscopyOrdered By: Lewis Turpin on 05-31-2025 Epithelial cells.squamous LM Ql (Urine sed) 0 SEEN /hpf 0-5 [facility] Total proteinOrdered By: Richard Turpin on 05-31-2025 Protein [Mass/Vol] 7.0 g/dL 5.9-8.4 [facility] Urinalysis, Completeon 05-31 CAST,HYALINE 0-5 SEEN Normal 0-5 [facility] Comment on above: Order Comment: CLEAN CATCH Performed By: #### L 400.0001 #### [facility] [address] [place], [place], [address] Mucus Ql (Urine sed) 2+ /hpf Normal [facility] Comment on above: Order Comment: CLEAN CATCH Performed By: #### L 400.0001 #### [facility] [address] [place], [place], [address] BACTERIA RARE Normal None Seen [facility] Comment on above: Order Comment: CLEAN CATCH Performed By: #### L 400.0001 #### [facility] [address] [place], [address] WBC 0-5 SEEN Normal 0-5 [facility] Comment on above: Order Comment: CLEAN CATCH Performed By: #### L 400.0001 #### [facility] [address] [place], [address] EPI,SQUAMOUS 0 SEEN Normal 0-5 [facility] Comment on above: Order Comment: CLEAN CATCH Performed By: #### L 400.0001 #### [facility] [address] [place], [address] RBC 0 SEEN Normal 0-5 [facility] Comment on above: Order Comment: CLEAN CATCH Performed By: #### L 400.0001 #### [facility] [address] [place], [place], [address] Urine clarityOrdered By: Richard Turpin on 05-31-2025 Clarity (U) Clear Clear [facility] Urine color determinationOrd ered By: Lewis Turpin on 05-31-2025 Color (U) Yellow Yellow [facility] Urine glucose detectionOrder ed By: Lewis Turpin on 05-31-2025 Glucose Ql (U) Normal mg/dl Normal [facility] Urine leukocyte esterase det ection by dipstickOrdered By: Lewis Turpin on 05-31-2025 Leukocyte esterase Test strip Ql (U) Negative Negative [facility] Urine pHOrdered By: Lewis richey on 05-31-2025 pH (U) 6.0 [pH] 5.0 - 8.0 [facility] Urine sediment bacteria coun t by microscopy (number/high power field)Ordered By: Lewis Turpin on 05-31-2025 Bacteria LM.HPF (Urine sed) [#/Area] RARE /hpf None Seen [facility] Urine specific gravity measu rementOrdered By: Lewis Turpin on 05-31-2025 Specific gravity (U) [Rel density] 1.020 1.002-1.03 0 [facility] Urine urobilinogen measureme ntOrdered By: Lewis Turpin on 05-31-2025 Urobilinogen Ql (U) Normal mg/dl Normal [facility] White blood cell (WBC) count Ordered By: Lewis Turpin on 05-31-2025 WBC (Bld) [#/Vol] 7.5 10*3/uL 4.4-11.0 [facility] White blood cell countOrdere d By: Lewis Turpin on 05-31-2025 White blood cell count 0-5 SEEN /hpf 0-5 [facility] Visit Reporton 0 05-29-2025 Urgent Care Visit Report [facility] [address] [place] [address] OFFICE VISIT Date of Service: 05/29/25 MR#: [id number] Acct: [id number] Name: LIBRADO GUILLEN Rep #: [id number] : 1945 Provider: KEILY Castillo Age/Sex: 79/M Location[facility] Status: Signed Intake Vital Signs 03/08/25 16:10 [...] medication. Patient states it didn't help him. [facility] Medical History Zenkers diverticulum BPH (benign prostatic [...] 4. Preventio (more content not included)... Normal [facility] Absolute lymphocyte countOrd ered By: Jaycob Yang on 05-27-2025 Lymphocytes Auto (Unsp spec) [#/Vol] 2.04 10*3/uL 0.83-4.51 [facility] Absolute neutrophil countOrd ered By: Jaycob Yang on 05-27-2025 Neutrophils (Bld) [#/Vol] 5.8 10*3/uL 2.0-7.7 [facility] Anion gap in Serum or Plasma Ordered By: Jaycob Yang on 05-27-2025 Anion gap [Moles/Vol] 13 mmol/L 5-15 [facility] Automated lymphocyte count a s percentage of total leukocytesOrdered By: Jaycob Yang on 05-27-2025 Lymphocytes/100 WBC Auto (Unsp spec) 22.8 % 19-41 [facility] BUN/creatinine ratioOrdered By: Jaycob Yang on 05-27-2025 Urea nitrogen/Creatinine [Mass ratio] 18.9 mg/mg 10-20 [facility] Basophil percentageOrdered B y: Jaycob Yang on 05-27-2025 Basophils/100 WBC (Bld) 0.9 % 0-1 [facility] Bilirubin, totalOrdered By: Jaycob Yang on 05-27-2025 Bilirubin [Mass/Vol] 0.42 mg/dL 0.00-1.30 [facility] CBC W/Diff, Automatedon Absolute Lymph 2.04 X10 3/uL Normal 0.83-4.51 [facility] Comment on above: Order Comment: Order Date: 05/27/25 Order Info: 0184-1 - CBCD Performed By: #### L 100.0100, L3300.9900, L501.9520 #### [facility] [address] [place], [address] Absolute Neut 5.8 X10 3/uL Normal 2.0-7.7 [facility] Comment on above: Order Comment: Order Date: 05/27/25 Order Info: 0184-1 - CBCD Performed By: #### L 100.0100, L3300.9900, L501.9520 #### [facility] [address] [place], [address] Basophils/100 WBC (Bld) 0.9 % Normal 0-1 [facility] Comment on above: Order Comment: Order Date: 05/27/25 Order Info: 0184-1 - CBCD Performed By: #### L 100.0100, L3300.9900, L501.9520 #### [facility] [address] [place], [address] Eosinophils/100 WBC (Bld) 0.0 % Normal 0-5 [facility] Comment on above: Order Comment: Order Date: 05/27/25 Order Info: 0184-1 - CBCD Performed By: #### L 100.0100, L3300.9900, L501.9520 #### [facility] [address] [place], [address] Erythrocyte distribution width (RBC) [Ratio] 13.7 % Normal 11.6-14.6 [facility] Comment on above: Order Comment: Order Date: 05/27/25 Order Info: 0184-1 - CBCD Performed By: #### L 100.0100, L3300.9900, L501.9520 #### [facility] [address] [place], [address] Hematocrit (Bld) [Volume fraction] 42.1 % Normal 40-54 [facility] Comment on above: Order Comment: Order Date: 05/27/25 Order Info: 0184-1 - CBCD Performed By: #### L 100.0100, L3300.9900, L501.9520 #### [facility] [address] [place], [address] Hemoglobin (Bld) [Mass/Vol] 14.1 g/dL Normal 13.0-16.5 [facility] Comment on above: Order Comment: Order Date: 05/27/25 Order Info: 0184- - CBCD Performed By: #### L 100.0100, L3300.9900, L501.9520 #### [facility] [address] [place], [address] IG% 1.500 High 0.0-0.9 [facility] Comment on above: Order Comment: Order Date: 05/27/25 Order Info: 0184-1 - CBCD Result Comment: IG% - Immature Granulocytes (promyelocytes, myelocytes and metamyelocytes) > 1% indicates that a LEFT SHIFT is Present. Performed By: #### L 100.0100, L3300.9900, L501.9520 #### [facility] [address] [place], [address] Lymphocytes/100 WBC (Bld) 22.8 % Normal 19-41 [facility] Comment on above: Order Comment: Order Date: 05/27/25 Order Info: 0184-1 - CBCD Performed By: #### L 100.0100, L3300.9900, L501.9520 #### [facility] [address] [place], [address] MCH (RBC) [Entitic mass] 31.8 pg Normal 27.0-32.0 [facility] Comment on above: Order Comment: Order Date: 05/27/25 Order Info: 0184-1 - CBCD Performed By: #### L 100.0100, L3300.9900, L501.9520 #### [facility] [address] [place], [address] MCHC (RBC) [Mass/Vol] 33.5 g/dL Normal 32-36 [facility] Comment on above: Order Comment: Order Date: 05/27/25 Order Info: 0184-1 - CBCD Performed By: #### L 100.0100, L3300.9900, L501.9520 #### [facility] [address] [place], [address] MCV (RBC) [Entitic vol] 95.0 fL High 80-94 [facility] Comment on above: Order Comment: Order Date: 05/27/25 Order Info: 0184-1 - CBCD Performed By: #### L 100.0100, L3300.9900, L501.9520 #### [facility] [address] [place], [address] Monocytes/100 WBC (Bld) 9.6 % Normal 0-10 [facility] Comment on above: Order Comment: Order Date: 05/27/25 Order Info: 0184-1 - CBCD Performed By: #### L 100.0100, L3300.9900, L501.9520 #### [facility] [address] [place], [address] Neutrophils/100 WBC (Bld) 65.2 % Normal 47-70 [facility] Comment on above: Order Comment: Order Date: 05/27/25 Order Info: 0184-1 - CBCD Performed By: #### L 100.0100, L3300.9900, L501.9520 #### [facility] [address] [place], [address] Nucleated RBC (Bld) [#/Vol] 0 10*3/uL Normal 0-5 [facility] Comment on above: Order Comment: Order Date: 05/27/25 Order Info: 0184-1 - CBCD Performed By: #### L 100.0100, L3300.9900, L501.9520 #### [facility] [address] [place], [address] Platelet mean volume (Bld) [Entitic vol] 9.8 fL Normal 6.2-12.0 [facility] Comment on above: Order Comment: Order Date: 05/27/25 Order Info: 0184-1 - CBCD Performed By: #### L 100.0100, L3300.9900, L501.9520 #### [facility] [address] [place], [address] Platelets (Bld) [#/Vol] 235 10*3/uL Normal 150-450 [facility] Comment on above: Order Comment: Order Date: 05/27/25 Order Info: 0184-1 - CBCD Performed By: #### L 100.0100, L3300.9900, L501.9520 #### [facility] [address] [place], [address] RBC (Bld) [#/Vol] 4.43 10*6/uL Low 4.6-6.2 [facility] Comment on above: Order Comment: Order Date: 05/27/25 Order Info: 0184-1 - CBCD Performed By: #### L 100.0100, L3300.9900, L501.9520 #### [facility] [address] [place], [address] RDW SD 47.3 fl High 35.1-43.9 [facility] Comment on above: Order Comment: Order Date: 05/27/25 Order Info: 0184-1 - CBCD Performed By: #### L 100.0100, L3300.9900, L501.9520 #### [facility] [address] [place], [address] WBC (Bld) [#/Vol] 9.0 10*3/uL Normal 4.4-11.0 [facility] Comment on above: Order Comment: Order Date: 05/27/25 Order Info: 0184-1 - CBCD Performed By: #### L 100.0100, L3300.9900, L501.9520 #### [facility] [address] [place], [address] Carbon dioxide, total [Moles /volume] in Central venous bloodOrdered By: Jaycob Yang on 05-27-2025 CO2 [Moles/Vol] 20.6 mmol/L Low 21.0-32.0 [facility] Chloride assayOrdered By: Jessica Yang on 05-27-2025 Chloride [Moles/Vol] 106 mmol/L 98-108 [facility] Comprehensive Metabolic Prof ilon 05-27-2025 Albumin [Mass/Vol] 4.2 g/dL Normal 3.4-4.8 [facility] Comment on above: Order Comment: Order Date: 05/27/25Order Info: 0786-1 - CMPOrder Info: 3016-3 - TSH Performed By: #### M 100.1000 #### [facility] [address] [place], [address] Albumin/Globulin [Mass ratio] 1.5 {ratio} Normal 0.9-2.4 [facility] Comment on above: Order Comment: Order Date: 05/27/25Order Info: 0786-1 - CMPOrder Info: 3016-3 - TSH Performed By: #### M 100.1000 #### [facility] [address] [place], [address] ALK PHOS 93 U/L Normal 40-129 [facility] Comment on above: Order Comment: Order Date: 05/27/25Order Info: 0786-1 - CMPOrder Info: 6-3 - TSH Performed By: #### M 100.1000 #### [facility] [address] [place], [address] ALT [Catalytic activity/Vol] 43 U/L Normal <=46 [facility] Comment on above: Order Comment: Order Date: 05/27/25Order Info: 86-1 - CMPOrder Info: 6-3 - TSH Performed By: #### M 100.1000 #### [facility] [address] [place], [address] AST [Catalytic activity/Vol] 28 U/L Normal <=37 [facility] Comment on above: Order Comment: Order Date: 05/27/25Order Info: 86-1 - CMPOrder Info: 6-3 - TSH Performed By: #### M 100.1000 #### [facility] [address] [place], [address] Bilirubin [Mass/Vol] 0.42 mg/dL Normal 0.00-1.30 [facility] Comment on above: Order Comment: Order Date: 05/27/25Order Info: 86-1 - CMPOrder Info: 6-3 - TSH Performed By: #### M 100.1000 #### [facility] [address] [place], [address] BUN/CRE 18.9 RATIO Normal 10-20 [facility] Comment on above: Order Comment: Order Date: 05/27/25Order Info: 0786-1 - CMPOrder Info: 3016-3 - TSH Performed By: #### M 100.1000 #### [facility] [address] [place], [address] Calcium [Mass/Vol] 9.3 mg/dL Normal 7.6-11.0 [facility] Comment on above: Order Comment: Order Date: 05/27/25Order Info: 0786-1 - CMPOrder Info: 6-3 - TSH Performed By: #### M 100.1000 #### [facility] [facility] [address] [place], [address] Chloride [Moles/Vol] 106 mmol/L Normal 98-108 [facility] Comment on above: Order Comment: Order Date: 05/27/25Order Info: 785-1 - CMPOrder Info: 3015-3 - TSH Performed By: #### M 100.1000 #### [facility] [address] [place], [address] CO2 [Moles/Vol] 20.6 mmol/L Low 21.0-32.0 [facility] Comment on above: Order Comment: Order Date: 05/27/25Order Info: 785-1 - CMPOrder Info: 3015-3 - TSH Performed By: #### M 100.1000 #### [facility] [address] [place] [place], [address] Creatinine [Mass/Vol] 0.92 mg/dL Normal 0.70-1.20 [facility] Comment on above: Order Comment: Order Date: 05/27/25Order Info: 785- - CMPOrder Info: 3015-3 - TSH Performed By: #### M 100.1000 #### [facility] [address] [place], [address] GAP 13 Normal 5-15 [facility] Comment on above: Order Comment: Order Date: 05/27/25Order Info: 86-1 - CMPOrder Info: 6-3 - TSH Performed By: #### M 100.1000 #### [facility] [address] [place], [address] GFR/1.73 sq M.predicted among non-blacks MDRD (S/P/Bld) [Vol rate/Area] 86 mL/min/{1.73_m2} Normal >60 [facility] Comment on above: Order Comment: Order Date: 05/27/25Order Info: 86-1 - CMPOrder Info: 3016-3 - TSH Result Comment: mL/m in/1.73m2 CKD-EPI Creatinine Equation (2020) Performed By: #### M 100.1000 #### [facility] [address] [place], [address] Globulin (S) [Mass/Vol] 2.9 g/dL Normal 2.2-4.2 [facility] Comment on above: Order Comment: Order Date: 05/27/25Order Info: 86-1 - CMPOrder Info: 3 - TSH Performed By: #### M 100.1000 #### [facility] [address] [place], [address] Glucose [Mass/Vol] 105 mg/dL High 70-99 [facility] Comment on above: Order Comment: Order Date: 05/27/25Order Info: 785-1 - CMPOrder Info: 3016-01 - TSH Performed By: #### M 100.1000 #### [facility] [address] [place], [address] Potassium [Moles/Vol] 4.1 mmol/L Normal 3.3-5.1 [facility] Comment on above: Order Comment: Order Date: 05/27/25Order Info: 785-1 - CMPOrder Info: 3016-01 - TSH Performed By: #### M 100.1000 #### [facility] [address] [place], [address] Sodium [Moles/Vol] 140 mmol/L Normal 133-145 [facility] Comment on above: Order Comment: Order Date: 05/27/25Order Info: 07-1 - CMPOrder Info: 3 - TSH Performed By: #### M 100.1000 #### [facility] [address] [place], [address] T PROT 7.1 g/dL Normal 5.9-8.4 [facility] Comment on above: Order Comment: Order Date: 05/27/25Order Info: 0786-1 - CMPOrder Info: 3016- - TSH Performed By: #### M 100.1000 #### [facility] [address] [place], [place], [address] Urea nitrogen [Mass/Vol] 17 mg/dL Normal 4-19 [facility] Comment on above: Order Comment: Order Date: 05/27/25Order Info: 0786-1 - CMPOrder Info: 30163 - TSH Performed By: #### M 100.1000 #### [facility] [address] [place], [place], [address] Eosinophil percentageOrdered By: Jaycob Yang on 05-27-2025 Eosinophils/100 WBC (Bld) 0.0 % 0-5 [facility] Erythrocyte distribution wid th ratioOrdered By: Jaycob Yang on 05-27-2025 Erythrocyte distribution width (RBC) [Ratio] 13.7 % 11.6-14.6 [facility] Erythrocyte distribution wid th standard deviationOrdered By: Jaycob Yang on 05-27-2025 Erythrocyte distribution width (RBC) [Ratio] 47.3 fl High 35.1-43.9 [facility] Glomerular filtration rate ( GFR) estimation/1.73 sq m using serum, plasma, or whole bOrdered By: Jaycob Yang on 05-27-2025 GFR/1.73 sq M.predicted among non-blacks MDRD (S/P/Bld) [Vol rate/Area] 86 mL/min/{1.73_m2} >60 [facility] Comment on above: mL/min/1.73m2 CKD-EP I Creatinine Equation (2020) Hematocrit Auto (Bld) [Volum e fraction]Ordered By: Jaycob Yang on 05-27-2025 Hematocrit (Bld) [Volume fraction] 42.1 % 40-54 [facility] Hemoglobin measurementOrdere d By: Jaycob Yang on 05-27-2025 Hemoglobin (Bld) [Mass/Vol] 14.1 g/dL 13.0-16.5 [facility] Immature granulocytes/100 WB C Auto (Bld)Ordered By: Jaycob Yang on 05-27-2025 Immature granulocytes/100 WBC (Bld) 1.500 % High 0.0-0.9 [facility] Comment on above: IG% - Immature Granu locytes (promyelocytes, myelocytes and metamyelocytes) > 1% indicates that a LEFT SHIFT is Present. Laboratory - Chemistry and C hemistry - challengeOrdered By: Jaycob Yang on 05-27-2025 AST [Catalytic activity/Vol] 28 U/L <38 [facility] MCV (mean corpuscular volume ) determinationOrdered By: Jaycob Yang on 05-27-2025 MCV (RBC) [Entitic vol] 95.0 fL High 80-94 [facility] Mean corpuscular hemoglobin (MCH) determinationOrdered By: Jaycob Yang on 05-27-2025 MCH (RBC) [Entitic mass] 31.8 pg 27.0-32.0 [facility] Mean corpuscular hemoglobin concentration (MCHC) determinationOrdered By: Jaycob Yang on 05-27-2025 MCHC (RBC) [Mass/Vol] 33.5 g/dL 32-36 [facility] Mean platelet volume determi nationOrdered By: Jaycob Yang on 05-27-2025 Platelet mean volume (Bld) [Entitic vol] 9.8 fL 6.2-12.0 [facility] Monocyte percentageOrdered B y: Jaycob Yang on 05-27-2025 Monocytes/100 WBC (Bld) 9.6 % 0-10 [facility] Neutrophil percentageOrdered By: Jaycob Yang on 05-27-2025 Neutrophils/100 WBC (Bld) 65.2 % 47-70 [facility] Nucleated red blood cell per centageOrdered By: Jaycob Yang on 05-27-2025 Nucleated RBC/100 WBC (Bld) [Ratio] 0 % 0-5 [facility] Platelet countOrdered By: Jessica Yang on 05-27-2025 Platelets (Bld) [#/Vol] 235 10*3/uL 150-450 [facility] Potassium measurement (mass/ volume)Ordered By: Jaycob Yang on 05-27-2025 Potassium (Unsp spec) [Mass/Vol] 4.1 mmol/L 3.3-5.1 [facility] RBC Auto (Bld) [#/Vol]Ordere d By: Jaycob Yang on 05-27-2025 RBC (Bld) [#/Vol] 4.43 10*6/uL Low 4.6-6.2 [facility] Serum creatinine measurement (mass/volume)Ordered By: Jaycob Yang on 05-27-2025 Creatinine [Mass/Vol] 0.92 mg/dL 0.70-1.20 [facility] Serum globulin measurementOr dered By: Jaycob Yang on 05-27-2025 Globulin (S) [Mass/Vol] 2.9 g/dL 2.2-4.2 [facility] Serum glucose measurement (m ass/volume)Ordered By: Jaycob Yang on 05-27-2025 Glucose [Mass/Vol] 105 mg/dL High 70-99 [facility] Serum or plasma alanine alston otransferase (ALT) measurementOrdered By: Jaycob Yang on 05-27-2025 ALT [Catalytic activity/Vol] 43 U/L <47 [facility] Serum or plasma albumin rell urement (mass/volume)Ordered By: Jaycob Yang on 05-27-2025 Albumin [Mass/Vol] 4.2 g/dL 3.4-4.8 [facility] Serum or plasma albumin/glob ulin mass ratioOrdered By: Jaycob Yang on 05-27-2025 Albumin/Globulin [Mass ratio] 1.5 {ratio} 0.9-2.4 [facility] Serum or plasma alkaline carlin sphatase measurementOrdered By: Jaycob Yang on 05-27-2025 ALP [Catalytic activity/Vol] 93 U/L 40-129 [facility] Serum or plasma calcium rell urement (mass/volume)Ordered By: Jaycob Yang on 05-27-2025 Calcium [Mass/Vol] 9.3 mg/dL 7.6-11.0 [facility] Serum or plasma urea nitroge n measurement (mass/volume)Ordered By: Jaycob Yang on 05-27-2025 Urea nitrogen [Mass/Vol] 17 mg/dL 4-19 [facility] Serum or plasma zinc measure ment (mass/volume)Ordered By: Jaycob Yang on 05-27-2025 Zinc [Mass/Vol] 71 ug/dL 44-115 [facility] Comment on above: Detection Limit = 5P erformed at: - [facility] [address] [place], [place] [id number] Director: Jamari Mariee MD, Phone: [phone] Sodium levelOrdered By: Alena Hanke on 05-27-2025 Sodium [Moles/Vol] 140 mmol/L 133-145 [facility] TSH DL <= 0.005 mIU/L QnOrde red By: Jaycob Hanke on 05-27-2025 TSH Qn 2.650 uIU/mL 0.300-4.20 0 [facility] Thyroid Stim Hormone (TSH)on 05-27-2025 TSH 2.650 uIU/mL Normal 0.300-4.20 0 [facility] Comment on above: Order Comment: Order Date: 05/27/25 Order Info: 0786-1 - CMP Order Info: 3016-3 - TSH Performed By: #### L 100.0100, L3300.9900, L501.9520 #### [facility] [address] [facility] [place], [place], [id number] Total proteinOrdered By: Cassia joey Hanke on 05-27-2025 Protein [Mass/Vol] 7.1 g/dL 5.9-8.4 [facility] White blood cell (WBC) count Ordered By: Jaycob Trey on 05-27-2025 WBC (Bld) [#/Vol] 9.0 10*3/uL 4.4-11.0 [facility] Culture, Throaton 05-21-2025 CUT Normal throat mariajose isolated. No beta-hemolytic streptococcus isolated. Normal [facility] Comment on above: Performed By: #### M 100.1000 #### [facility] [address] [facility] [place], [address] Throat specimen bacteria jose ntification by cultureOrdered By: Barrington Holguin on 05-19-2025 Bacteria identified Cx Nom (Throat) streptococcus isolated. [facility] EGD Reporton 03-08-2025 EGD Report [facility] Medical Records Department [address] [place] [address] EGD Report MR#: [id number] Acct: [id number] Name: LIBRADO GUILLEN Rep #: [id number] : 1945 79 From: Geovani Ramirez DO PCP: Dr. Jaycob Yang MD Status:[facility] Patient Name: Librado Guillen Procedure Date: 03/08/2025 [...] present medications. Procedure Code(s): --- Professional --- 45236, Esophagogastroduodenoscopy, flexible, transoral; with removal of foreign body(s) CPT copyright 2021 [employer]. All rights reserved. The codes documented in this report are preliminary and upon mainspring former brace end review may be revised to meet current compliance requirements. Geovani Ramirez DO 03/08/2025 6:24:36 PM This report has been signed electronically. Number of Addenda: 0 Note Initiated On: 03/08/2025 5:48 PM 03/08/25 1824 Date Geovani Thomas Signature: Date (if indicated) CC: Dr. Jaycob Yang MD; Geovani Ramirez DO Date Dictated: 03/08/25 1748 Date Transcribed: Hat Block Bench Hand: HALEY Signed Normal [facility] Emergency Department Summary on 03-08-2025 Emergency Department Summary [facility] Medical Records Department [address] [place] [address] Emergency Department Summary 03/08/25 MR#: [id number] Acct: [id number] Name: LIBRADO GUILLEN Rep #: [id number] : 1945 79 From: Barrington Sanchez DO PCP: Dr. Jaycob Yang MD Status:DEP [facility] Location: EN HPI History of Present Illness [...] it up but did not remove it. [facility] Medical History [place] diverticulum BPH (benign prostatic [...] Dr. Ramirez. He (more content not included)... [facility] MR/POSTOP.ANEon 03-08-2025 MR/POSTOP.[facility] Medical Records Department [address] [place] [address] Anesthesia Postop Eval I 03/08/25 1829 MR#: [id number] Acct: [id number] Name: LIBRADO GUILLEN Rep #: [id number] : 1945 79 From: Barry Kline MD PCP: Dr. Jaycob Yang MD Status:REG [facility] Y Race: C Location: [place] [address] Anesthesia: Postop Eval I Current Vital Signs [...] completed: Yes 03/08/251829 Date [facility] Date CC: Signed [facility] MR/ENDISRFP1ts 03-08-2025 MR/POSTOPAN2 [facility] Medical Records Department [address] [place] [address] Anesthesia Postop Eval II 03/08/251829 MR#: [id number] Acct: [id number] Name: LIBRADO GUILLEN Rep #: [id number] : 1945 79 From: Barry Kline MD PCP: Dr. Jaycob Yang MD Status:REG [facility] Y Race: C Location: [facility] Anesthesia Postop Eval I Sum Postop Eval [...] MD Cosigner Signature: Date CC: Signed Normal [facility] .Auto Diffon 02-03-2025 Basophil, Absolute 0.0 10 3/mcL Normal 0.0-0.2 [facility] Comment on above: Performed By: #### G , YOEL, ADIFF, ANEU, TROPHS, LIP, CMP, CBC #### [facility] [address] [place], [place] [address] Basophils/100 WBC (Bld) 0.3 % Normal 0.0-2.5 [facility] Comment on above: Performed By: #### G , YOEL, ADIFF, ANEU, TROPHS, LIP, CMP, CBC #### [address] [address] Eosinophil, Absolute 0.0 10 3/mcL Normal 0.0-0.7 [facility] Comment on above: Performed By: #### G , YOEL, ADIFF, ANEU, TROPHS, LIP, CMP, CBC #### [address] [address] Eosinophils/100 WBC (Bld) 0.0 % Normal 0.0-7.0 [facility] Comment on above: Performed By: #### G , YOEL, ADIFF, ANEU, TROPHS, LIP, CMP, CBC #### [address] [address] Lymphocyte, Absolute 1.3 10 3/mcL Normal 0.9-4.3 [facility] Comment on above: Performed By: #### G , YOEL, ADIFF, ANEU, TROPHS, LIP, CMP, CBC #### [address] [address] Lymphocytes/100 WBC (Bld) 15.5 % Low 20.0-40.0 [facility] Comment on above: Performed By: #### G , YOEL, ADIFF, ANEU, TROPHS, LIP, CMP, CBC #### [address] [address] Monocyte, Absolute 0.6 10 3/mcL Normal 0.1-1.4 [facility] Comment on above: Performed By: #### G , YOEL, ADIFF, ANEU, TROPHS, LIP, CMP, CBC #### [address] [address] Monocytes/100 WBC (Bld) 7.2 % Normal 2.0-13.0 [facility] Comment on above: Performed By: #### G , YOEL, ADIFF, ANEU, TROPHS, LIP, CMP, CBC #### [address] [address] Neutrophils/100 WBC (Bld) 77.0 % High 50.0-75.0 [facility] Comment on above: Performed By: #### G YOEL YANES, ADANDREW, ANEU, TROPHS, LIP, CMP, CBC #### [address] [address] .GFRon 02-03-2025 Estimated Glomerular Filtration Rate 67 ml/min/1.73sqm Normal [facility] Comment on above: Result Comment: Stages of [...] GIOVANA, ANEU, TROPHS, LIP, CMP, CBC #### [address] [address] .MDWon 02-03-2025 Monocyte Distribution Width 18.09 Normal 0.00-20.00 [facility] Comment on above: Result Comment: For ED adult patients suspected of sepsis, MDW<=20.0 does not rule out sepsis or risk of sepsis Performed By: #### G YOEL YANES, GIOVANA, ANEU, TROPHS, LIP, CMP, CBC #### [address] [address] .NEUABSon 02-03-2025 Neutrophil, Absolute 6.3 10 3/mcL Normal 2.3-8.1 [facility] Comment on above: Performed By: #### G YOEL YANES, ADIFF, ANEU, TROPHS, LIP, CMP, CBC #### [address] [address] CBCon 02-03-2025 Erythrocyte distribution width (RBC) [Ratio] 13.4 % Normal 11.5-15.5 [facility] Comment on above: Performed By: #### G YOEL YANES, GIOVANA, ANEU, TROPHS, LIP, CMP, CBC #### [place] [address] Hematocrit (Bld) [Volume fraction] 40.4 % Normal 40.0-52.0 [facility] Comment on above: Performed By: #### G YOEL YANES, GIOVANA, ANEU, TROPHS, LIP, CMP, CBC #### [place] [address] Hgb 14.2 G/dL Normal 13.0-17.5 [facility] Comment on above: Performed By: #### G YOEL YNAES, GIOVANA, ANEU, TROPHS, LIP, CMP, CBC #### [place] [address] MCH (RBC) [Entitic mass] 32.1 pg Normal 27.0-33.0 [facility] Comment on above: Performed By: #### G YOEL YANES ADIFF, ANEU, TROPHS, LIP, CMP, CBC #### [place] [address] MCHC 35.1 G/dL Normal 32.0-36.0 [facility] Comment on above: Performed By: #### G YOEL YANES, GIOVANA, ANEU, TROPHS, LIP, CMP, CBC #### [place] [address] MCV (RBC) [Entitic vol] 91.3 fL Normal 81.0-100.0 [facility] Comment on above: Performed By: #### G YOEL YANES, GIOVANA, ANEU, TROPHS, LIP, CMP, CBC #### [place] [address] Platelet 190 10 3/mcL Normal 150-450 [facility] Comment on above: Performed By: #### G YOEL YANES, ADIFF, ANEU, TROPHS, LIP, CMP, CBC #### [address] [address] Platelet mean volume (Bld) [Entitic vol] 7.5 fL Normal 6.4-10.5 [facility] Comment on above: Performed By: #### G YOEL YANES, ADIFF, ANEU, TROPHS, LIP, CMP, CBC #### [address] [address] RBC 4.42 10 6/mcL Low 4.50-6.00 [facility] Comment on above: Performed By: #### G YOEL YANES, ABDIFATAHIFF, ANEU, TROPHS, LIP, CMP, CBC #### [address] [address] WBC 8.2 10 3/mcL Normal 4.5-10.8 [facility] Comment on above: Performed By: #### G YOEL YANES, ABDIFATAHIFF, ANEU, TROPHS, LIP, CMP, CBC #### [address] [address] CMPon 02-03-2025 Albumin Level 4.0 G/dL Normal 3.4-4.8 [facility] Comment on above: Performed By: #### G YOEL YANES, GIOVANA, ANEU, TROPHS, LIP, CMP, CBC #### [address] [address] Albumin/Globulin [Mass ratio] 1.2 {ratio} Normal 1.1-2.5 [facility] Comment on above: Performed By: #### G YOEL YANES, GIOVANA, ANEU, TROPHS, LIP, CMP, CBC #### [address] [address] ALP [Catalytic activity/Vol] 100 U/L Normal 40-135 [facility] Comment on above: Performed By: #### G YOEL YANES, ABDIFATAHIFF, ANEU, TROPHS, LIP, CMP, CBC #### [address] [address] ALT [Catalytic activity/Vol] 47 U/L Normal 16-63 [facility] Comment on above: Performed By: #### G YOEL YANES, GIOVANA, ANEU, TROPHS, LIP, CMP, CBC #### [address] [address] AST [Catalytic activity/Vol] 22 U/L Normal 10-40 [facility] Comment on above: Performed By: #### G YOEL YANES, GIOVANA, ANEU, TROPHS, LIP, CMP, CBC #### [address] [address] Bili Total 0.5 mg/dL Normal 0.2-1.0 [facility] Comment on above: Result Comment: Use of this assay is not recommended for patients undergoing treatment with eltrombopag due to the potential for falsely elevated results. Performed By: #### G YOEL YANES, GIOVANA, ANEU, TROPHS, LIP, CMP, CBC #### [place] [address] BUN/Creatinine Ratio 14 ratio Normal 7-27 [facility] Comment on above: Performed By: #### G YOEL YANES ADIFF, ANEU, TROPHS, LIP, CMP, CBC #### [address] [address] Calcium [Mass/Vol] 8.9 mg/dL Normal 8.4-10.2 [facility] Comment on above: Performed By: #### G YOEL YANES ADIFF, ANEU, TROPHS, LIP, CMP, CBC #### [address] [address] Chloride [Moles/Vol] 107 mmol/L Normal 98-107 [facility] Comment on above: Performed By: #### G YOEL YANES ADIFF, ANEU, TROPHS, LIP, CMP, CBC #### [address] [address] CO2 [Moles/Vol] 27 mmol/L Normal 23-31 [facility] Comment on above: Performed By: #### G YOEL YANES, ADIFF, ANEU, TROPHS, LIP, CMP, CBC #### [address] [address] Creatinine [Mass/Vol] 1.13 mg/dL Normal 0.70-1.30 [facility] Comment on above: Result Comment: Test ing performed on Siemens Dimension EXL analyzer using a modified kinetic Henrry technique. Performed By: #### G YOEL YANES, ABDIFATAHIFF, ANEU, TROPHS, LIP, CMP, CBC #### [address] [address] Electrolyte Balance 6.0 mEq/L Normal 4.0-15.0 [facility] Comment on above: Performed By: #### G YOEL YANES, GIOVANA, ANEU, TROPHS, LIP, CMP, CBC #### [address] [address] Globulin 3.3 G/dL Normal 1.5-3.8 [facility] Comment on above: Performed By: #### G YOEL YANES, GIOVANA, ANEU, TROPHS, LIP, CMP, CBC #### [address] [address] Glucose [Mass/Vol] 106 mg/dL Normal 83-110 [facility] Comment on above: Performed By: #### G YOEL YANES, GIOVANA, ANEU, TROPHS, LIP, CMP, CBC #### [address] [address] Potassium [Moles/Vol] 4.3 mmol/L Normal 3.5-5.1 [facility] Comment on above: Performed By: #### G YOEL YANES, GIOVANA, ANEU, TROPHS, LIP, CMP, CBC #### [address] [address] Sodium [Moles/Vol] 140 mmol/L Normal 136-145 [facility] Comment on above: Performed By: #### G YOEL YANES, ABDIFATAHIFF, ANEU, TROPHS, LIP, CMP, CBC #### [address] [address] Total Protein 7.3 G/dL Normal 6.4-8.2 [facility] Comment on above: Performed By: #### G YOEL YANES, GIOVANA, ANEU, TROPHS, LIP, CMP, CBC #### [facility] [address] [place], [place] [address] Urea nitrogen [Mass/Vol] 16 mg/dL Normal 7-18 [facility] Comment on above: Performed By: #### G YOEL YANES, GIOVANA, ANEU, TROPHS, LIP, CMP, CBC #### [facility] [address] [place], [place] [address] CT ABD/PELVIS W/ IV CONTRAST ONLYon 02-03-2025 [...] 5:28:58 PM Ordering Provider: SUNNY CRUZ Normal [facility] LIPon 02-03-2025 Lipase Level 16 U/L Normal 16-77 [facility] Comment on above: Performed By: #### G YOEL YANES, GIOVANA, ANEU, TROPHS, LIP, CMP, CBC #### [place] [address] [place], [place] [address] [facility] 02-03-2025 High Sensitivity Troponin I 10 ng/L Normal 0-76 [facility] Comment on above: Result Comment: High Sensitive Troponin I Reference Ranges: Female: 0-51 ng/L Male: 0-76 ng/L Testing performed on Tastemade using a homogeneous sandwich chemiluminescent immunoassay based on RECUPYL technology. Performed By: #### G YOEL YANES, GIOVANA, UMBERTO, TROPHS, LIP, CMP, CBC #### [place] [address] [place], [place] [address] [facility] 02-03-2025 Color (U) Yellow Normal [facility] Comment on above: Performed By: #### U A ####[facility] [place], [place] [address] Glucose (U) [Mass/Vol] Negative Normal Negative [facility] Comment on above: Performed By: #### U A ####[place] [address] [place] [address] Ketones Ql (U) Negative Normal Negative [facility] Comment on above: Performed By: #### U A ####[address] [place] [address] UA Appear Clear Normal Clear [facility] Comment on above: Performed By: #### U A ####[address] [place] [address] UA Blood Negative Normal Negative [facility] Comment on above: Performed By: #### U A ####[address] [place] [address] UA Leuk Est Negative Normal Negative [facility] Comment on above: Performed By: #### U A ####[address] [place] [address] UA Nitrite Negative Normal Negative [facility] Comment on above: Performed By: #### U A ####[address] [place] [address] UA pH 7.5 Normal 5.0 - 8.0 [facility] Comment on above: Performed By: #### U A ####[place] [address] [address] UA Protein Negative Normal Negative [facility] Comment on above: Performed By: #### U A ####[address] [place] [address] UA Spec Grav 1.015 Normal 1.015-1.02 5 [facility] Comment on above: Performed By: #### U A ####[address] [place] [address] UA Specimen Type Clean Catch Normal [facility] Comment on above: Performed By: #### U A ####[address] [place] [address] UA Urobilinogen 0.2 E.U./dL Normal 0.2-1.0 [facility] Comment on above: Performed By: #### U A ####[address] [place] [address] Urobilinogen (U) [Mass/Vol] Negative Normal Negative [facility] Comment on above: Performed By: #### U A ####[facility] [place], [place] [address] XR CHEST 1 VIEWon 02-03-2025 XR CHEST [...] 4:55:32 PM Ordering Provider: SUNNY CRUZ Normal [facility] SURGICAL PATHOLOGYon 025 CASE REPORT Normal [facility] Comment on above: Order Comment: Speci men Type: TISSUE SPECIMEN Ordering Facility: [facility] Address: ATTN: [place] [address] Result Comment: Surg ica Pathology Report Case: [id number] Authorizing Provider: Gloria Moses MD Collected: 12/10/2024 10:46 AM Ordering Location: [facility] Received: 12/11/2024 10:32 AM [facility] Pathologist: Lorenzo Marinelli MD Specimen: Esophagogastric Junction, Biopsy, Gastroesophageal SP-CL [id number] Performed By: #### S #### [facility] CLIA [id number] [address] [place] [address] [place] CLINICAL HISTORY 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 due for surveillance. Hx of Zenker's repair. Persistent GERD and dypepsia despite max acid supression. R/O Patel's. Normal [facility] Comment on above: Order Comment: Speci men Type: TISSUE SPECIMEN Ordering Facility: [facility] Address: ATTN: LABORATORY, [place] [address] Performed By: #### S #### [facility] CLIA [id number] [address] [place] [address] [place] FINAL DIAGNOSIS Normal [facility] Comment on above: Order Comment: Speci men Type: TISSUE SPECIMEN Ordering Facility: [facility] Address: ATTN: LABORATORY, [place] [address] Result Comment: A. E sophagogastric junction, biopsy: -Squamo-gastric junctional mucosa with reactive epithelial changes -Negative for intestinal metaplasia Performed By: #### S #### [facility] CLIA [id number] [address] [place] [address] [place] FINAL PERFORMING LAB Normal [facility] Comment on above: Order Comment: Speci men Type: TISSUE SPECIMEN Ordering Facility: [facility] Address: ATTN: LABORATORY, [place] [address] Result Comment: Diag nostic interpretation performed at: [facility], [address] [place] [address] CLIA# [id number] Trouble Shooting Mechanic: Anton Mclean MD Performed By: #### S #### [facility] CLIA [id number] [address] [place] [address] [place] GROSS DESCRIPTION Normal [facility] Comment on above: Order Comment: Speci men Type: TISSUE SPECIMEN Ordering Facility: [facility] Address: ATTN: LABORATORY, [place] [address] Result Comment: A. E sophagogastric Junction, Biopsy Received in formalin are multiple pieces of wray, soft tissue aggregating to 1.6 x 0.6 x 0.1 cm. Totally submitted in two cassettes. Gross examination performed at [facility], [address] [place] [address] December 11, 2024 10:57 AM Performed By: #### S #### [facility] CLIA [id number] [address] [place] Urine Cultureon 11-04-2024 [facility] Order Date: 11/03/24 Order Info: 630-4 - CUUR Culture exhibits no growth. Normal [facility] Comment on above: Performed By: #### M 100.1000 #### [facility] [place], [address] Urine cultureOrdered By: Valerie Conklin on 11-03-2024 Bacteria identified Cx Nom (U) Culture exhibits no growth. [facility] CNOVon 08-17-2024 CNOV Office Visit (GENSWS ) LIBRADO GUILLEN ([id number]) 1945 Date Time Provider Department 08/17/24 11:00 AM MALOU VILLAGOMEZ During your visit today, we recorded the following information about you: Temperature Pulse Blood pressure Weight 97.1 degrees 84/minute 122/80 117.6 kg Height 1.778 m Malou Villagomez APRN.CNP 08/17/2024 11:42 AM Signed HISTORY AND PHYSICAL Librado Guillen : 1945 REFERR[facility] CHIEF COMPLAINT: Patient presents with: Consult: EGD [...] ulcers/ peptic ulcer disease. Jonas presented to [facility] ED for CP. 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 Normal [facility] Stress Reporton 07-02-2024 Stress Report [facility] [address] [place] [address] MR#: [id number] Acct: [id number] Name: LIBRADO GUILLEN Rep #: [id number] : 1945 78 From: Caron Resendiz MD [...] is 69%. This note was generated with [employer] software. It may contain incorrect words, spelling, and punctuation that were not noted in checking the note before signing. 07/02/24 1338 Date Nagapradee Nagajothi MD CC: Dr. Jaycob Yang MD; Elia Downs MD Date Dictated: 07/02/241326 Date Transcribed: 07/02/241326 Hat Block Bench Hand: JIM Signed Normal [facility] Absolute lymphocyte countOrd ered By: ED PROVIDER on 12-09-2023 Lymphocytes Auto (Unsp spec) [#/Vol] 1.54 10*3/uL 0.83-4.51 [facility] Basophil percentageOrdered B y: ED PROVIDER on 12-09-2023 Basophils/100 WBC (Bld) 0.4 % 0-1 [facility] Chloride [Moles/Vol] 109 mmol/L 98-107 [facility] Eosinophils/100 WBC (Bld) 0.0 % 0-5 [facility] Glucose [Mass/Vol] 102 mg/dL 74-106 [facility] Comment on above: Fasting Glucose resu lt from 100 to 125 mg/dL suggests IMPAIRED HOMEOSTASIS per A.D.A. criteria. Neutrophils (Bld) [#/Vol] 7.0 10*3/uL 2.0-7.7 [facility] Neutrophils/100 WBC (Bld) 75.1 % 47-70 [facility] Potassium [Moles/Vol] 4.1 mmol/L 3.5-5.1 [facility] Sodium [Moles/Vol] 142 mmol/L 136-145 [facility] WBC (Bld) [#/Vol] 9.4 10*3/uL 4.4-11.0 [facility] Blood erythrocytes count (nu mber/volume)Ordered By: ED PROVIDER on 12-09-2023 RBC (Bld) [#/Vol] 4.77 10*6/uL 4.6-6.2 [facility] Blood hemoglobin measurement (mass/volume)Ordered By: ED PROVIDER on 12-09-2023 Hemoglobin (Bld) [Mass/Vol] 14.7 g/dL 13.0-16.5 [facility] Blood lymphocytes/100 leukoc ytesOrdered By: ED PROVIDER on 12-09-2023 Lymphocytes/100 WBC (Bld) 16.4 % 19-41 [facility] Blood monocytes/100 leukocyt esOrdered By: ED PROVIDER on 12-09-2023 Monocytes/100 WBC (Bld) 7.2 % 0-10 [facility] Blood platelet mean volumeOr dered By: ED PROVIDER on 12-09-2023 Platelet mean volume (Bld) [Entitic vol] 9.8 fL 6.2-12.0 [facility] Determination of erythrocyte mean corpuscular volume (MCV)Ordered By: ED PROVIDER on 12-09-2023 MCV (RBC) [Entitic vol] 93.5 fL 80-94 [facility] Hematocrit Auto (Bld) [Volum e fraction]Ordered By: ED PROVIDER on 12-09-2023 Hematocrit (Bld) [Volume fraction] 44.6 % 40-54 [facility] - Chemistry and C hemistry - challengeOrdered By: ED PROVIDER on 12-09-2023 CO2 [Moles/Vol] 24.0 mmol/L 21.0-32.0 [facility] Urea nitrogen/Creatinine [Mass ratio] 22.8 mg/mg 10-20 [facility] - Hematology and Cell countsOrdered By: ED PROVIDER on 12-09-2023 Erythrocyte distribution width (RBC) [Entitic vol] 44.6 fL 35.1-43.9 [facility] Erythrocyte distribution width (RBC) [Ratio] 12.9 % 11.6-14.6 [facility] Immature granulocytes/100 WBC (Bld) 0.900 % 0.0-0.9 [facility] Comment on above: IG% - Immature Granu locytes (promyelocytes, myelocytes and metamyelocytes) > 1% indicates that a LEFT SHIFT is Present. MCH (RBC) [Entitic mass] 30.8 pg 27.0-32.0 [facility] Nucleated RBC/100 WBC (Bld) [Ratio] 0 % 0-5 [facility] MCHC Auto (RBC) [Mass/Vol]Or dered By: ED PROVIDER on 12-09-2023 MCHC (RBC) [Mass/Vol] 33.0 g/dL 32-36 [facility] No Panel InformationOrdered By: ED PROVIDER on 12-09-2023 Troponin I High Sensitivity 15 pg/mL 3.0-78.0 [facility] Comment on above: Please Note: [place] Units and Gender Specific Reference Ranges. For more information see Policy Stat Procedure [place] High Sensitivity Troponin (TNIH) and attachments. Estimated Creatinine Clearance Calc 69.10 ml/min [facility] Estimated GFR (MDRD) Amer 80 mL/min >60 [facility] Comment on above: GFR Calc Estimated GFR (MDRD) Non-Af Amer 66 mL/min >60 [facility] Comment on above: Non- GFR Calc No Panel InformationOrdered By: Beata Blancas on 12-09-2023 D-Dimer Quantitative (PE/DVT) 0.47 FEU/ug/m 0.27-0.49 [facility] Comment on above: NORMAL D-Dimer level (<0.50) indicates no DVT or PE. Platelets bldOrdered By: ED PROVIDER on 12-09-2023 Platelets (Bld) [#/Vol] 194 10*3/uL 150-450 [facility] Serum or plasma calcium rell urement (mass/volume)Ordered By: ED PROVIDER on 12-09-2023 Calcium [Mass/Vol] 9.1 mg/dL 8.5-10.1 [facility] Serum or plasma creatinine m easurement (mass/volume)Ordered By: ED PROVIDER on 12-09-2023 Creatinine [Mass/Vol] 1.14 mg/dL 0.70-1.30 [facility] Comment on above: The validity of the calculated GFR & GFRAA in patients over 70 years has not been determined. Clinical correlation is essential. Serum or plasma urea nitroge n measurement (mass/volume)Ordered By: ED PROVIDER on 12-09-2023 Urea nitrogen [Mass/Vol] 26 mg/dL 7-18 [facility] Thin prep Papanicolaou smear with manual screeningOrdered By: ED PROVIDER on 12-09-2023 Thin prep Papanicolaou smear with manual screening 9 5-15 [facility] Absolute lymphocyte countOrd ered By: Marlene Corea on 04-25-2023 Lymphocytes Auto (Unsp spec) [#/Vol] 1.38 10*3/uL 0.83-4.51 [facility] Basophil percentageOrdered B y: Marlene Corea on 04-25-2023 Basophils/100 WBC (Bld) 0.3 % 0-1 [facility] Bilirubin [Mass/Vol] 0.40 mg/dL 0.20-1.00 [facility] Comment on above: For patients on eltr ombopag therapy, use of Dimension [place] TBIL is not recommended. Chloride [Moles/Vol] 109 mmol/L 98-107 [facility] Eosinophils/100 WBC (Bld) 0.0 % 0-5 [facility] Glucose [Mass/Vol] 98 mg/dL 74-106 [facility] Neutrophils (Bld) [#/Vol] 6.9 10*3/uL 2.0-7.7 [facility] Neutrophils/100 WBC (Bld) 77.2 % 47-70 [facility] Potassium [Moles/Vol] 4.6 mmol/L 3.5-5.1 [facility] Protein [Mass/Vol] 7.3 g/dL 6.4-8.2 [facility] Sodium [Moles/Vol] 142 mmol/L 136-145 [facility] WBC (Bld) [#/Vol] 8.9 10*3/uL 4.4-11.0 [facility] Blood erythrocytes count (nu mber/volume)Ordered By: Marlene Corea on 04-25-2023 RBC (Bld) [#/Vol] 4.58 10*6/uL 4.6-6.2 [facility] Blood hemoglobin measurement (mass/volume)Ordered By: Marlene Corea on 04-25-2023 Hemoglobin (Bld) [Mass/Vol] 14.1 g/dL 13.0-16.5 [facility] Blood lymphocytes/100 leukoc ytesOrdered By: Marlene Corea on 04-25-2023 Lymphocytes/100 WBC (Bld) 15.5 % 19-41 [facility] Blood monocytes/100 leukocyt esOrdered By: Marlene Corea on 04-25-2023 Monocytes/100 WBC (Bld) 6.4 % 0-10 [facility] Blood platelet mean volumeOr dered By: Marlene Corea on 04-25-2023 Platelet mean volume (Bld) [Entitic vol] 10.4 fL 6.2-12.0 [facility] Determination of erythrocyte mean corpuscular volume (MCV)Ordered By: Marlene Corea on 04-25-2023 MCV (RBC) [Entitic vol] 97.6 fL 80-94 [facility] Hematocrit Auto (Bld) [Volum e fraction]Ordered By: Marlene Corea on 04-25-2023 Hematocrit (Bld) [Volume fraction] 44.7 % 40-54 [facility] - Chemistry and C hemistry - challengeOrdered By: Marlene Corea on 04-25-2023 ALP [Catalytic activity/Vol] 82 U/L 45-117 [facility] ALT [Catalytic activity/Vol] 34 U/L 16-61 [facility] CO2 [Moles/Vol] 27.0 mmol/L 21.0-32.0 [facility] Cobalamin (Vitamin B12) [Mass/Vol] 353 pg/mL 211-911 [facility] Globulin (S) [Mass/Vol] 3.5 g/dL 2.2-4.2 [facility] Magnesium [Mass/Vol] 2.5 mg/dL 1.6-2.6 [facility] Urea nitrogen/Creatinine [Mass ratio] 16.1 mg/mg 10-20 [facility] - Hematology and Cell countsOrdered By: Marlene Corea on 04-25-2023 Erythrocyte distribution width (RBC) [Entitic vol] 45.7 fL 35.1-43.9 [facility] Erythrocyte distribution width (RBC) [Ratio] 12.8 % 11.6-14.6 [facility] Immature granulocytes/100 WBC (Bld) 0.600 % 0.0-0.9 [facility] Comment on above: IG% - Immature Granu locytes (promyelocytes, myelocytes and metamyelocytes) > 1% indicates that a LEFT SHIFT is Present. MCH (RBC) [Entitic mass] 30.8 pg 27.0-32.0 [facility] Nucleated RBC/100 WBC (Bld) [Ratio] 0 % 0-5 [facility] MCHC Auto (RBC) [Mass/Vol]Or dered By: Marlene Corea on 04-25-2023 MCHC (RBC) [Mass/Vol] 31.5 g/dL 32-36 [facility] No Panel InformationOrdered By: Marlene Corea on 04-25-2023 Estimated GFR (MDRD) Amer 82 mL/min >60 [facility] Comment on above: GFR Calc Estimated GFR (MDRD) Non-Af Amer 68 mL/min >60 [facility] Comment on above: Non- GFR Calc Thyroid Stimulating Hormone (TSH) 1.10 uIU/mL 0.358-3.74 [facility] Vitamin D 25-Hydroxy 34.4 ng/mL [facility] Comment on above: Vitamin D 25(OH) Sta tus Range Deficiency <20 ng/mL (50nmol/L) Insufficiency 20 - 30 ng/mL (50 - 75 nmol/L) Sufficiency 30 - 100 ng/mL (75 - 250 nmol/L) Toxicity >100 ng/mL (>250 nmol/L) Platelets bldOrdered By: Nestor Corea on 04-25-2023 Platelets (Bld) [#/Vol] 208 10*3/uL 150-450 [facility] Serum or plasma albumin rell urement (mass/volume)Ordered By: Marlene Corea on 04-25-2023 Albumin [Mass/Vol] 3.8 g/dL 3.2-5.0 [facility] Serum or plasma albumin/glob ulin mass ratioOrdered By: Marlene Corea on 04-25-2023 Albumin/Globulin [Mass ratio] 1.1 {ratio} 0.9-2.4 [facility] Serum or plasma calcium rell urement (mass/volume)Ordered By: Marlene Corea on 04-25-2023 Calcium [Mass/Vol] 8.8 mg/dL 8.5-10.1 [facility] Serum or plasma creatinine m easurement (mass/volume)Ordered By: Marlene Corea on 04-25-2023 Creatinine [Mass/Vol] 1.12 mg/dL 0.70-1.30 [facility] Comment on above: The validity of the calculated GFR & GFRAA in patients over 70 years has not been determined. Clinical correlation is essential. Serum or plasma urea nitroge n measurement (mass/volume)Ordered By: Marlene Corea on 04-25-2023 Urea nitrogen [Mass/Vol] 18 mg/dL 7-18 [facility] Thin prep Papanicolaou smear with manual screeningOrdered By: Marlene Corea on 04-25-2023 Thin prep Papanicolaou smear with manual screening 19 U/L 15-37 [facility] Thin prep Papanicolaou smear with manual screening 6 5-15 [facility] Absolute lymphocyte countOrd ered By: Dr. Alcala on 01-07-2023 Lymphocytes Auto (Unsp spec) [#/Vol] 1.07 10*3/uL 0.83-4.51 [facility] Basophil percentageOrdered B y: Dr. Alcala on 01-07-2023 Basophils/100 WBC (Bld) 0.1 % 0-1 [facility] Chloride [Moles/Vol] 110 mmol/L 98-107 [facility] Eosinophils/100 WBC (Bld) 0.0 % 0-5 [facility] Glucose [Mass/Vol] 112 mg/dL 74-106 [facility] Comment on above: Fasting Glucose resu lt from 100 to 125 mg/dL suggests IMPAIRED HOMEOSTASIS per A.D.A. criteria. Neutrophils (Bld) [#/Vol] 6.0 10*3/uL 2.0-7.7 [facility] Neutrophils/100 WBC (Bld) 78.4 % 47-70 [facility] Potassium [Moles/Vol] 4.4 mmol/L 3.5-5.1 [facility] Sodium [Moles/Vol] 142 mmol/L 136-145 [facility] WBC (Bld) [#/Vol] 7.7 10*3/uL 4.4-11.0 [facility] Blood erythrocytes count (nu mber/volume)Ordered By: Dr. Alcala on 01-07-2023 RBC (Bld) [#/Vol] 4.54 10*6/uL 4.6-6.2 [facility] Blood hemoglobin measurement (mass/volume)Ordered By: Dr. Alcala on 01-07-2023 Hemoglobin (Bld) [Mass/Vol] 14.5 g/dL 13.0-16.5 [facility] Blood lymphocytes/100 leukoc ytesOrdered By: Dr. Alcala on 01-07-2023 Lymphocytes/100 WBC (Bld) 13.9 % 19-41 [facility] Blood monocytes/100 leukocyt esOrdered By: Dr. Alcala on 01-07-2023 Monocytes/100 WBC (Bld) 6.9 % 0-10 [facility] Blood platelet mean volumeOr dered By: Dr. Alcala on 01-07-2023 Platelet mean volume (Bld) [Entitic vol] 9.6 fL 6.2-12.0 [facility] Determination of erythrocyte mean corpuscular volume (MCV)Ordered By: Dr. Alcala on 01-07-2023 MCV (RBC) [Entitic vol] 93.8 fL 80-94 [facility] Hematocrit Auto (Bld) [Volum e fraction]Ordered By: Dr. Alcala on 01-07-2023 Hematocrit (Bld) [Volume fraction] 42.6 % 40-54 [facility] - Chemistry and C hemistry - challengeOrdered By: Dr. Alcala on 01-07-2023 CO2 [Moles/Vol] 29.0 mmol/L 21.0-32.0 [facility] Urea nitrogen/Creatinine [Mass ratio] 16.5 mg/mg 10-20 [facility] - Hematology and Cell countsOrdered By: Dr. Alcala on 01-07-2023 Erythrocyte distribution width (RBC) [Entitic vol] 44.3 fL 35.1-43.9 [facility] Erythrocyte distribution width (RBC) [Ratio] 12.8 % 11.6-14.6 [facility] Immature granulocytes/100 WBC (Bld) 0.700 % 0.0-0.9 [facility] Comment on above: IG% - Immature Granu locytes (promyelocytes, myelocytes and metamyelocytes) > 1% indicates that a LEFT SHIFT is Present. MCH (RBC) [Entitic mass] 31.9 pg 27.0-32.0 [facility] Nucleated RBC/100 WBC (Bld) [Ratio] 0 % 0-5 [facility] MCHC Auto (RBC) [Mass/Vol]Or dered By: Dr. Alcala on 01-07-2023 MCHC (RBC) [Mass/Vol] 34.0 g/dL 32-36 [facility] No Panel InformationOrdered By: Dr. Alcala on 01-07-2023 Estimated Creatinine Clearance Calc 63.98 ml/min [facility] Estimated GFR (MDRD) Amer 91 mL/min >60 [facility] Comment on above: GFR Calc Estimated GFR (MDRD) Non-Af Amer 75 mL/min >60 [facility] Comment on above: Non- GFR Calc Troponin I High Sensitivity 10 pg/mL 3.0-78.0 [facility] Comment on above: Please Note: New [place] t Units and Gender Specific Reference Ranges. For more information see Policy Stat Procedure [place] High Sensitivity Troponin (TNIH) and attachments. Platelets bldOrdered By: Dr. Alcala on 01-07-2023 Platelets (Bld) [#/Vol] 187 10*3/uL 150-450 [facility] Serum or plasma calcium rell urement (mass/volume)Ordered By: Dr. Alcala on 01-07-2023 Calcium [Mass/Vol] 9.3 mg/dL 8.5-10.1 [facility] Serum or plasma creatinine m easurement (mass/volume)Ordered By: Dr. Alcala on 01-07-2023 Creatinine [Mass/Vol] 1.03 mg/dL 0.70-1.30 [facility] Comment on above: The validity of the calculated GFR & GFRAA in patients over 70 years has not been determined. Clinical correlation is essential. Serum or plasma urea nitroge n measurement (mass/volume)Ordered By: Dr. Alcala on 01-07-2023 Urea nitrogen [Mass/Vol] 17 mg/dL 7-18 [facility] Thin prep Papanicolaou smear with manual screeningOrdered By: Dr. Alcala on 01-07-2023 Thin prep Papanicolaou smear with manual screening 3 5-15 [facility] Absolute lymphocyte countOrd ered By: Markus Hugo on 10-12-2022 Lymphocytes Auto (Unsp spec) [#/Vol] 1.58 10*3/uL 0.83-4.51 [facility] Basophil percentageOrdered B y: Markus Hugo on 10-12-2022 Basophils/100 WBC (Bld) 0.5 % 0-1 [facility] Bilirubin [Mass/Vol] 0.40 mg/dL 0.20-1.00 [facility] Comment on above: For patients on eltr ombopag therapy, use of Dimension [place] TBIL is not recommended. Chloride [Moles/Vol] 110 mmol/L 98-107 [facility] Eosinophils/100 WBC (Bld) 0.0 % 0-5 [facility] Glucose [Mass/Vol] 108 mg/dL 74-106 [facility] Comment on above: Fasting Glucose resu lt from 100 to 125 mg/dL suggests IMPAIRED HOMEOSTASIS per A.D.A. criteria. Neutrophils (Bld) [#/Vol] 5.8 10*3/uL 2.0-7.7 [facility] Neutrophils/100 WBC (Bld) 70.7 % 47-70 [facility] Potassium [Moles/Vol] 4.1 mmol/L 3.5-5.1 [facility] Protein [Mass/Vol] 7.3 g/dL 6.4-8.2 [facility] Sodium [Moles/Vol] 144 mmol/L 136-145 [facility] WBC (Bld) [#/Vol] 8.3 10*3/uL 4.4-11.0 [facility] Blood erythrocytes count (nu mber/volume)Ordered By: Markus Hugo on 10-12-2022 RBC (Bld) [#/Vol] 4.70 10*6/uL 4.6-6.2 [facility] Blood hemoglobin measurement (mass/volume)Ordered By: Markus Hugo on 10-12-2022 Hemoglobin (Bld) [Mass/Vol] 14.5 g/dL 13.0-16.5 [facility] Blood lymphocytes/100 leukoc ytesOrdered By: Markus Hugo on 10-12-2022 Lymphocytes/100 WBC (Bld) 19.1 % 19-41 [facility] Blood monocytes/100 leukocyt esOrdered By: Markus Hugo on 10-12-2022 Monocytes/100 WBC (Bld) 8.9 % 0-10 [facility] Blood platelet mean volumeOr dered By: Markus Hugo on 10-12-2022 Platelet mean volume (Bld) [Entitic vol] 9.8 fL 6.2-12.0 [facility] Determination of erythrocyte mean corpuscular volume (MCV)Ordered By: Markus Hugo on 10-12-2022 MCV (RBC) [Entitic vol] 94.9 fL 80-94 [facility] Direct bilirubinOrdered By: Markus Hugo on 10-12-2022 Bilirubin.direct [Mass/Vol] 0.16 mg/dL 0.00-0.30 [facility] Hematocrit Auto (Bld) [Volum e fraction]Ordered By: Markus Hugo on 10-12-2022 Hematocrit (Bld) [Volume fraction] 44.6 % 40-54 [facility] - Chemistry and C hemistry - challengeOrdered By: Markus Hugo on 10-12-2022 ALP [Catalytic activity/Vol] 97 U/L 45-117 [facility] ALT [Catalytic activity/Vol] 53 U/L 16-61 [facility] CO2 [Moles/Vol] 26.0 mmol/L 21.0-32.0 [facility] Globulin (S) [Mass/Vol] 3.6 g/dL 2.2-4.2 [facility] Lipase [Catalytic activity/Vol] 65 U/L 73-393 [facility] Natriuretic peptide B (Bld) [Mass/Vol] 23.1 pg/mL 0-100 [facility] Urea nitrogen/Creatinine [Mass ratio] 19.1 mg/mg 10-20 [facility] - Hematology and Cell countsOrdered By: Markus Hugo on 10-12-2022 Erythrocyte distribution width (RBC) [Entitic vol] 45.2 fL 35.1-43.9 [facility] Erythrocyte distribution width (RBC) [Ratio] 12.9 % 11.6-14.6 [facility] Immature granulocytes/100 WBC (Bld) 0.800 % 0.0-0.9 [facility] Comment on above: IG% - Immature Granu locytes (promyelocytes, myelocytes and metamyelocytes) > 1% indicates that a LEFT SHIFT is Present. MCH (RBC) [Entitic mass] 30.9 pg 27.0-32.0 [facility] Nucleated RBC/100 WBC (Bld) [Ratio] 0 % 0-5 [facility] MCHC Auto (RBC) [Mass/Vol]Or dered By: Markus Hugo on 10-12-2022 MCHC (RBC) [Mass/Vol] 32.5 g/dL 32-36 [facility] No Panel InformationOrdered By: Markus Hugo on 10-12-2022 Troponin I High Sensitivity 17 pg/mL 3.0-78.0 [facility] Comment on above: Please Note: [place] t Units and Gender Specific Reference Ranges. For more information see Policy Stat Procedure [place] High Sensitivity Troponin (TNIH) and attachments. D-Dimer Quantitative (PE/DVT) 0.56 FEU/ug/m 0.27-0.49 [facility] Comment on above: CRITICAL VALUE VERIF IED. CALLED TO JUDITH STUBBS RN ED10/12/222015 Ar Cotto.RESULTS READ BACK BY SAME . D-Dimer ELEVATED (>0.49): Additional studies and clinicalassessments are indicated to conclude diagnosis of:Deep Vein Thrombosis (DVT) or Pulmonary Embolism (PE) Estimated Creatinine Clearance Calc 59.91 ml/min [facility] Estimated GFR (MDRD) Amer 84 mL/min >60 [facility] Comment on above: GFR Calc Estimated GFR (MDRD) Non-Af Amer 69 mL/min >60 [facility] Comment on above: Non- GFR Calc Platelets bldOrdered By: Selene Hugo on 10-12-2022 Platelets (Bld) [#/Vol] 206 10*3/uL 150-450 [facility] Serum or plasma albumin rell urement (mass/volume)Ordered By: Markus Hugo on 10-12-2022 Albumin [Mass/Vol] 3.7 g/dL 3.2-5.0 [facility] Serum or plasma calcium rell urement (mass/volume)Ordered By: Markus Hugo on 10-12-2022 Calcium [Mass/Vol] 9.0 mg/dL 8.5-10.1 [facility] Serum or plasma creatinine m easurement (mass/volume)Ordered By: Markus Hugo on 10-12-2022 Creatinine [Mass/Vol] 1.10 mg/dL 0.70-1.30 [facility] Comment on above: The validity of the calculated GFR & GFRAA in patients over 70 years has not been determined. Clinical correlation is essential. Serum or plasma urea nitroge n measurement (mass/volume)Ordered By: Markus Hugo on 10-12-2022 Urea nitrogen [Mass/Vol] 21 mg/dL 06-11 [facility] Thin prep Papanicolaou smear with manual screeningOrdered By: Markus Hugo on 10-12-2022 Thin prep Papanicolaou smear with manual screening 26 U/L 15 [facility] Thin prep Papanicolaou smear with manual screening 8 5-15 [facility] CBC + DIFFon 03-16-2022 Baso # 0.00 x10EE3/UL Normal 0.00 - 0.10 [facility] Comment on above: Performed By: #### [id number] #### [facility] [facility],[address] [place] [address] 64741 Basophils/100 WBC (Bld) 0.3 % Normal 0.0 - 2.0 [facility] Comment on above: Performed By: #### 2 36598 #### [facility],[address] [place] [address] CBC + DIFF Normal [facility] Comment on above: Result Comment: CBC- COMPLETE BLOOD COUNT Performed By: #### 2 83956 #### [facility],[address] [place] [address] 27183 EO # 0.00 x10EE3/UL Normal 0.00 - 0.50 [facility] Comment on above: Performed By: #### 2 91801 #### [facility],[address] [place] [address] 08948 Eosinophils/100 WBC (Bld) 0.0 % Normal 0.0 - 7.0 [facility] Comment on above: Performed By: #### 2 29315 #### [facility],[address] [place] [address] 75280 Erythrocyte distribution width (RBC) [Ratio] 13.0 % Normal 12.0 - 15.6 [facility] Comment on above: Performed By: #### 2 54473 #### [facility],[address] [place] [address] Hematocrit (Bld) [Volume fraction] 41.6 % Normal 40.0 - 52.0 [facility] Comment on above: Performed By: #### 2 14935 #### [facility],[address] [place] [address] Hemoglobin (Bld) [Mass/Vol] 14.3 g/dL Normal 13.0 - 17.5 [facility] Comment on above: Performed By: #### 2 96698 #### [facility],[address] [place] [address] Lymph # 1.70 x10EE3/UL Normal 0.80 - 2.80 [facility] Comment on above: Performed By: #### 2 19685 #### [place] [address] Lymphocytes/100 WBC (Bld) 25.0 % Normal 20.0 - 45.0 [facility] Comment on above: Performed By: #### 2 90264 #### [facility],[address] [place] [address] MANUAL DIFF N/A Normal [facility] Comment on above: Performed By: #### 2 98835 #### [place] [address] MCH (RBC) [Entitic mass] 31 pg Normal 27 - 33 [facility] Comment on above: Performed By: #### 2 39399 #### [place] [address] MCHC 34 X10 3 Normal 32 - 36 [facility] Comment on above: Performed By: #### 2 98318 #### [place] [address] MCV (RBC) [Entitic vol] 91 fL Normal 81 - 98 [facility] Comment on above: Performed By: #### 2 64850 #### [place] [address] [place] # 0.60 x10EE3/UL Normal 0.20 - 1.00 [facility] Comment on above: Performed By: #### 2 26407 #### [facility],[address] [place] [address] 83927 MONOS % 8.6 % Normal 0.0 - 10.0 [facility] Comment on above: Performed By: #### 2 89199 #### [facility],[address] [place] [address] Morphology Jeronimo (Bld) [Interp] N/A Normal [facility] Comment on above: Performed By: #### 2 92092 #### [facility],[address] [place] [address] Neut # 4.40 x10EE3/UL Normal 1.50 - 7.10 [facility] Comment on above: Performed By: #### 2 86853 #### [facility],[address] [place] [address] Neutrophils/100 WBC (Bld) 66.1 % Normal 46.0 - 76.0 [facility] Comment on above: Performed By: #### 2 57540 #### [facility],[address] [place] [address] PLATELET 209 x10EE3/UL Normal 150 - 450 [facility] Comment on above: Performed By: #### 2 04222 #### [facility],[address] [place] [address] Platelet mean volume (Bld) [Entitic vol] 8.2 fL Normal 6.4 - 10.5 [facility] Comment on above: Result Comment: AUTO MATED DIFFERENTIAL Performed By: #### 2 11275 #### [place] [id number] RBC 4.59 x 10EE6/UL Normal 4.50 - 6.00 [facility] Comment on above: Performed By: #### 2 04543 #### [facility],[address] [place], [place] [address] WBC 6.7 x 10EE3/UL Normal 4.5 - 10.8 [facility] Comment on above: Performed By: #### 2 64868 #### [facility],[address] [place] [address] 41243 CMP with eGFRon 03-16-2022 AGE 76 years Normal [facility] Comment on above: Performed By: #### 2 50520 #### [facility],[address] [place] [address] 15792 Albumin [Mass/Vol] 3.6 g/dL Normal 3.4 - 5.0 [facility] Comment on above: Performed By: #### 2 58814 #### [facility],[address] [place] [address] Albumin/Globulin [Mass ratio] 1.1 {ratio} Normal 0.9 - 1.6 [facility] Comment on above: Performed By: #### 2 56356 #### [facility],[address] [place] [address] 09419 ALK PHOS 100 U/L Normal 46 - 116 [facility] Comment on above: Performed By: #### 2 67749 #### [facility],[address] [place] [address] 55401 ALT [Catalytic activity/Vol] 34 U/L Normal 16 - 63 [facility] Comment on above: Performed By: #### 2 62025 #### [facility],[address] [place] [address] 97249 Anion gap [Moles/Vol] 11 mmol/L Normal 10 - 20 [facility] Comment on above: Performed By: #### 2 82955 #### [facility],[address] [place] [address] 95824 AST [Catalytic activity/Vol] 20 U/L Normal 15 - 37 [facility] Comment on above: Performed By: #### 2 65666 #### [facility],[address] [place] [address] 58172 B/C RATIO 16 ratio Normal 0 - 30 [facility] Comment on above: Performed By: #### 2 45066 #### [facility],[address] [place], [place] [address] Bilirubin [Mass/Vol] 0.7 mg/dL Normal 0.2 - 1.0 [facility] Comment on above: Performed By: #### 2 47972 #### [facility],[address] [place] [address] Calcium [Mass/Vol] 8.6 mg/dL Normal 8.5 - 10.1 [facility] Comment on above: Performed By: #### 2 86894 #### [facility],[address] [place] [address] Chloride [Moles/Vol] 105 mmol/L Normal 98 - 107 [facility] Comment on above: Performed By: #### 2 38221 #### [facility],[address] [place] [address] CMP with eGFR Normal [facility] Comment on above: Result Comment: COMP REHENSIVE METABOLIC PANEL Performed By: #### 2 72724 #### [facility],[address] [place] [address] CO2 [Moles/Vol] 28.0 mmol/L Normal 21.0 - 32.0 [facility] Comment on above: Performed By: #### 2 08027 #### [facility],[address] [place], [place] [address] Creatinine [Mass/Vol] 1.11 mg/dL Normal 0.70 - 1.30 [facility] Comment on above: Performed By: #### 2 11883 #### [facility],[address] [place], [place] [address] GFR/1.73 sq M.predicted among non-blacks MDRD (S/P/Bld) [Vol rate/Area] mL/min/{1.73_m2} Normal 60 - 999 [facility] Comment on above: Performed By: #### 2 08600 #### [facility],[address] [place] [address] 84205 Result Comment: ACCO RDING TO THE NATIONAL KIDNEY DISEASE EDUCATION PROGRAM(NKDE), A NORMAL eGFR IS A VALUE GREATER THAN OR EQUAL TO 60 ML/MIN/1.73 SQ METERS. CHRONIC KIDNEY DISEASE: <60mL/MIN/1.73 SQ METERS KIDNEY FAILURE: <15mL/MIN/1.73 SQ METERS THIS TEST SHOULD ONLY BE USED FOR PATIENTS 18 YEARS OF AGE AND OLDER. Globulin (S) [Mass/Vol] 3.3 g/dL Normal 1.5 - 3.8 [facility] Comment on above: Performed By: #### 2 54800 #### [facility],[address] [place] [address] 23527 Glucose [Mass/Vol] 96 mg/dL Normal 74 - 106 [facility] Comment on above: Performed By: #### 2 06037 #### [facility],[address] [place] [address] 50623 Potassium [Moles/Vol] 4.0 mmol/L Normal 3.5 - 5.1 [facility] Comment on above: Performed By: #### 2 18777 #### [facility],[address] [place] [address] 25793 Protein [Mass/Vol] 6.9 g/dL Normal 6.4 - 8.2 [facility] Comment on above: Performed By: #### 2 56205 #### [facility],[address] [place] [address] 36955 Sodium [Moles/Vol] 140 mmol/L Normal 136 - 145 [facility] Comment on above: Performed By: #### 2 34107 #### [facility],[address] [place] [address] 61291 Urea nitrogen [Mass/Vol] 18 mg/dL Normal 7 - 18 [facility] Comment on above: Performed By: #### 2 25877 #### [facility],[address] [place] [address] 12093 CBC + DIFFon 02-21-2022 Baso # 0.00 x10EE3/UL Normal 0.00 - 0.10 [facility] Comment on above: Performed By: #### 2 31152 #### [facility],[address] [place] [address] 35663 Basophils/100 WBC (Bld) 0.2 % Normal 0.0 - 2.0 [facility] Comment on above: Performed By: #### 2 69075 #### [facility],[address] [place] [address] 05218 CBC + DIFF Normal [facility] Comment on above: Result Comment: CBC- COMPLETE BLOOD COUNT Performed By: #### 2 25418 #### [facility],[address] [place] [address] 22094 EO # 0.00 x10EE3/UL Normal 0.00 - 0.50 [facility] Comment on above: Performed By: #### 2 81760 #### [facility],[address] [place] [address] 33658 Eosinophils/100 WBC (Bld) 0.0 % Normal 0.0 - 7.0 [facility] Comment on above: Performed By: #### 2 69404 #### [facility],[address] [place] [address] 31851 Erythrocyte distribution width (RBC) [Ratio] 13.2 % Normal 12.0 - 15.6 [facility] Comment on above: Performed By: #### 2 07428 #### [facility],[address] [place] [address] 24389 Hematocrit (Bld) [Volume fraction] 41.4 % Normal 40.0 - 52.0 [facility] Comment on above: Performed By: #### 2 53386 #### [facility],[address] [place] [address] 04756 Hemoglobin (Bld) [Mass/Vol] 14.0 g/dL Normal 13.0 - 17.5 [facility] Comment on above: Performed By: #### 2 74096 #### [facility],[address] [place] [address] Lymph # 1.40 x10EE3/UL Normal 0.80 - 2.80 [facility] Comment on above: Performed By: #### 2 79452 #### [facility],[address] [place] [address] Lymphocytes/100 WBC (Bld) 24.1 % Normal 20.0 - 45.0 [facility] Comment on above: Performed By: #### 2 93080 #### [facility],[address] [place] [address] MANUAL DIFF N/A Normal [facility] Comment on above: Performed By: #### 2 75471 #### [facility],[address] [place] [address] MCH (RBC) [Entitic mass] 31 pg Normal 27 - 33 [facility] Comment on above: Performed By: #### 2 98666 #### [facility],[address] [place] [address] MCHC 34 X10 3 Normal 32 - 36 [facility] Comment on above: Performed By: #### 2 21945 #### [facility],[address] [place] [address] MCV (RBC) [Entitic vol] 91 fL Normal 81 - 98 [facility] Comment on above: Performed By: #### 2 60157 #### [facility],[address] [place] [address] [place] # 0.50 x10EE3/UL Normal 0.20 - 1.00 [facility] Comment on above: Performed By: #### 2 78861 #### [facility],[address] [place] [address] MONOS % 8.6 % Normal 0.0 - 10.0 [facility] Comment on above: Performed By: #### 2 84278 #### [facility],[address] [place] [address] 96970 Morphology Jeronimo (Bld) [Interp] N/A Normal [facility] Comment on above: Performed By: #### 2 69786 #### [facility],[address] [place] [address] 00127 Neut # 4.00 x10EE3/UL Normal 1.50 - 7.10 [facility] Comment on above: Performed By: #### 2 20068 #### [facility],[address] [place] [address] 81196 Neutrophils/100 WBC (Bld) 67.1 % Normal 46.0 - 76.0 [facility] Comment on above: Performed By: #### 2 02299 #### [address] [address] PLATELET 202 x10EE3/UL Normal 150 - 450 [facility] Comment on above: Performed By: #### 2 26550 #### [facility],[address] [place] [address] 67307 Platelet mean volume (Bld) [Entitic vol] 8.0 fL Normal 6.4 - 10.5 [facility] Comment on above: Result Comment: AUTO MATED DIFFERENTIAL Performed By: #### 2 56847 #### [facility],[address] [place] [address] 46203 RBC 4.54 x 10EE6/UL Normal 4.50 - 6.00 [facility] Comment on above: Performed By: #### 2 83511 #### [facility],[address] [place] [address] 97077 WBC 5.9 x 10EE3/UL Normal 4.5 - 10.8 [facility] Comment on above: Performed By: #### 2 56954 #### [facility],[address] [place] [address] 56365 CHEST 2 VIEWSon 02-21-2022 CHEST 2 VIEWS [place] [address] Patient: LIBRADO GUILLEN Phone#: : 1945 Age: 76 Gender: M Pt. Type: Out Account: [id number] Location: Ordering: DOMINIQUE HERREAR Exam Date: 02/21/2022/11:19 Family Phys: SHANNAN RAYMUNDO Charge Code: 162232 Physician: [place] Order #: [id number] [id number] Dose#: PROCEDURE: X-RAY CHEST 2 VIEWS [...] Sal MD on 02/21/2022 at 11:31 Normal [facility] CMP with eGFRon 02-21-2022 AGE 76 years Normal [facility] Comment on above: Performed By: #### 2 64457 #### [facility],[address] [place] [address] 72436 Albumin [Mass/Vol] 3.5 g/dL Normal 3.4 - 5.0 [facility] Comment on above: Performed By: #### 2 81848 #### [facility],[address] [place] [address] 78068 Albumin/Globulin [Mass ratio] 1.0 {ratio} Normal 0.9 - 1.6 [facility] Comment on above: Performed By: #### 2 69801 #### [facility],[address] [place] [address] 75712 ALK PHOS 101 U/L Normal 46 - 116 [facility] Comment on above: Performed By: #### 2 91213 #### [facility],[address] [place] [address] 32791 ALT [Catalytic activity/Vol] 38 U/L Normal 16 - 63 [facility] Comment on above: Performed By: #### 2 83331 #### [facility],[address] [place] [address] 40849 Anion gap [Moles/Vol] 11 mmol/L Normal 10 - 20 [facility] Comment on above: Performed By: #### 2 30981 #### [facility],[address] [place] [address] AST [Catalytic activity/Vol] 22 U/L Normal 15 - 37 [facility] Comment on above: Performed By: #### 2 72590 #### [facility],[address] [place], [place] [address] B/C RATIO 18 ratio Normal 0 - 30 [facility] Comment on above: Performed By: #### 2 81064 #### [facility],[address] [place] [address] 34282 Bilirubin [Mass/Vol] 0.5 mg/dL Normal 0.2 - 1.0 [facility] Comment on above: Performed By: #### 2 37041 #### [facility],[address] [place] [address] 32595 Calcium [Mass/Vol] 8.9 mg/dL Normal 8.5 - 10.1 [facility] Comment on above: Performed By: #### 2 04027 #### [facility],[address] [place] [address] 91499 Chloride [Moles/Vol] 106 mmol/L Normal 98 - 107 [facility] Comment on above: Performed By: #### 2 37646 #### [facility],[address] [place] [address] 64551 CMP with eGFR Normal [facility] Comment on above: Result Comment: COMP REHENSIVE METABOLIC PANEL Performed By: #### 2 64667 #### [facility],[address] [place] [address] 98261 CO2 [Moles/Vol] 28.1 mmol/L Normal 21.0 - 32.0 [facility] Comment on above: Performed By: #### 2 75441 #### [facility],[address] [place] [address] 83324 Creatinine [Mass/Vol] 1.13 mg/dL Normal 0.70 - 1.30 [facility] Comment on above: Performed By: #### 2 64925 #### [facility],[address] [place], [place] [address] GFR/1.73 sq M.predicted among non-blacks MDRD (S/P/Bld) [Vol rate/Area] mL/min/{1.73_m2} Normal 60 - 999 [facility] Comment on above: Performed By: #### 2 84174 #### [facility],[address] [place] [address] Result Comment: ACCO RDING TO THE NATIONAL KIDNEY DISEASE EDUCATION PROGRAM(NKDE), A NORMAL eGFR IS A VALUE GREATER THAN OR EQUAL TO 60 ML/MIN/1.73 SQ METERS. CHRONIC KIDNEY DISEASE: <60mL/MIN/1.73 SQ METERS KIDNEY FAILURE: <15mL/MIN/1.73 SQ METERS THIS TEST SHOULD ONLY BE USED FOR PATIENTS 18 YEARS OF AGE AND OLDER. Globulin (S) [Mass/Vol] 3.5 g/dL Normal 1.5 - 3.8 [facility] Comment on above: Performed By: #### 2 14617 #### [facility],[address] [place] [address] 37713 Glucose [Mass/Vol] 106 mg/dL Normal 74 - 106 [facility] Comment on above: Performed By: #### 2 22686 #### [facility],[address] [place] [address] 05334 Potassium [Moles/Vol] 3.8 mmol/L Normal 3.5 - 5.1 [facility] Comment on above: Performed By: #### 2 84835 #### [facility],[address] [place] [address] 23826 Protein [Mass/Vol] 7.0 g/dL Normal 6.4 - 8.2 [facility] Comment on above: Performed By: #### 2 64153 #### [facility],[address] [place] [address] 23284 Sodium [Moles/Vol] 141 mmol/L Normal 136 - 145 [facility] Comment on above: Performed By: #### 2 51756 #### [facility],[address] [place] [address] 70799 Urea nitrogen [Mass/Vol] 20 mg/dL High 7 - 18 [facility] Comment on above: Performed By: #### 2 58981 #### [facility],[address] [place] [address] 46696 Absolute lymphocyte counton 01-31-2022 Lymphocytes Auto (Unsp spec) [#/Vol] 1.10 10*3/uL 0.83-4.51 [facility] Work Phone: Basophil percentageon 2021 Basophils/100 WBC (Bld) 1.4 % 0-1 [facility] Work Phone: Bilirubin [Mass/Vol] 0.50 mg/dL 0.20-1.00 [facility] Work Phone: Comment on above: For patients on eltr ombopag therapy, use of Dimension [place] TBIL is not recommended. Chloride [Moles/Vol] 108 mmol/L 98-107 [facility] Work Phone: Eosinophils/100 WBC (Bld) 3.5 % 0-5 [facility] Work Phone: Glucose [Mass/Vol] 71 mg/dL 74-106 [facility] Work Phone: Neutrophils (Bld) [#/Vol] 5.1 10*3/uL 2.0-7.7 [facility] Work Phone: [phone] Neutrophils/100 WBC (Bld) 69.2 % 47-70 [facility] Work Phone: Potassium [Moles/Vol] 3.9 mmol/L 3.5-5.1 [facility] Work Phone: Protein [Mass/Vol] 7.4 g/dL 6.4-8.2 [facility] Work Phone: Sodium [Moles/Vol] 140 mmol/L 136-145 [facility] Work Phone: WBC (Bld) [#/Vol] 7.3 10*3/uL 4.4-11.0 [facility] Work Phone: Blood erythrocytes count (nu mber/volume)on 01-31-2022 RBC (Bld) [#/Vol] 4.75 10*6/uL 4.6-6.2 [facility] Work Phone: Blood hemoglobin measurement (mass/volume)on 01-31-2022 Hemoglobin (Bld) [Mass/Vol] 14.9 g/dL 13.0-16.5 [facility] Work Phone: Blood lymphocytes/100 leukoc yteson 01-31-2022 Lymphocytes/100 WBC (Bld) 15.0 % 19-41 [facility] Work Phone: Blood monocytes/100 leukocyt eson 01-31-2022 Monocytes/100 WBC (Bld) 10.2 % 0-10 [facility] Work Phone: Blood platelet mean volumeon 01-31-2022 Platelet mean volume (Bld) [Entitic vol] 10.0 fL 6.2-12.0 [facility] Work Phone: Determination of erythrocyte mean corpuscular volume (MCV)on 01-31-2022 MCV (RBC) [Entitic vol] 94.1 fL 80-94 [facility] Work Phone: Hematocrit Auto (Bld) [Volum e fraction]on 01-31-2022 Hematocrit (Bld) [Volume fraction] 44.7 % 40-54 [facility] Work Phone: Laboratory - Chemistry and C hemistry - challengeon 01-31-2022 ALP [Catalytic activity/Vol] 112 U/L 45-117 [facility] Work Phone: ALT [Catalytic activity/Vol] 44 U/L 16-61 [facility] Work Phone: CO2 [Moles/Vol] 26.0 mmol/L 21.0-32.0 [facility] Work Phone: Globulin (S) [Mass/Vol] 3.6 g/dL 2.2-4.2 [facility] Work Phone: Magnesium [Mass/Vol] 2.5 mg/dL 1.6-2.6 [facility] Work Phone: Urea nitrogen/Creatinine [Mass ratio] 19.8 mg/mg 10-20 [facility] Work Phone: Laboratory - Hematology and Cell countson 01-31-2022 Erythrocyte distribution width (RBC) [Entitic vol] 45.1 fL 35.1-43.9 [facility] Work Phone: Erythrocyte distribution width (RBC) [Ratio] 13.1 % 11.6-14.6 [facility] Work Phone: Immature granulocytes/100 WBC (Bld) 0.700 % 0.0-0.9 [facility] Work Phone: Comment on above: IG% - Immature Granu locytes (promyelocytes, myelocytes and metamyelocytes) > 1% indicates that a LEFT SHIFT is Present. MCH (RBC) [Entitic mass] 31.4 pg 27.0-32.0 [facility] Work Phone: Nucleated RBC/100 WBC (Bld) [Ratio] 0 % 0-5 [facility] Work Phone: MCHC Auto (RBC) [Mass/Vol]on 01-31-2022 MCHC (RBC) [Mass/Vol] 33.3 g/dL 32-36 [facility] Work Phone: No Panel Informationon 01-31 Estimated GFR (MDRD) Amer 88 mL/min >60 [facility] Work Phone: Comment on above: GFR Calc Estimated GFR (MDRD) Non-Af Amer 73 mL/min >60 [facility] Work Phone: Comment on above: Non- GFR Calc Thyroid Stimulating Hormone (TSH) 1.89 uIU/mL 0.358-3.74 [facility] Work Phone: Platelets bldon 01-31-2022 Platelets (Bld) [#/Vol] 218 10*3/uL 150-450 [facility] Work Phone: Serum or plasma albumin rell urement (mass/volume)on 01-31-2022 Albumin [Mass/Vol] 3.8 g/dL 3.2-5.0 [facility] Work Phone: Serum or plasma albumin/glob ulin mass ratioon 01-31-2022 Albumin/Globulin [Mass ratio] 1.1 {ratio} 0.9-2.4 [facility] Work Phone: Serum or plasma calcium rell urement (mass/volume)on 01-31-2022 Calcium [Mass/Vol] 8.9 mg/dL 8.5-10.1 [facility] Work Phone: Serum or plasma creatinine m easurement (mass/volume)on 01-31-2022 Creatinine [Mass/Vol] 1.06 mg/dL 0.70-1.30 [facility] Work Phone: Comment on above: The validity of the calculated GFR & GFRAA in patients over 70 years has not been determined. Clinical correlation is essential. Serum or plasma ferritin james surement (mass/volume)on 01-31-2022 Ferritin [Mass/Vol] 49 ng/mL 26-388 [facility] Work Phone: Serum or plasma urea nitroge n measurement (mass/volume)on 01-31-2022 Urea nitrogen [Mass/Vol] 21 mg/dL 7-18 [facility] Work Phone: Thin prep Papanicolaou smear with manual screeningon 01-31-2022 Thin prep Papanicolaou smear with manual screening 24 U/L 15-37 [facility] Work Phone: Thin prep Papanicolaou smear with manual screening 6 5-15 [facility] Work Phone: Absolute lymphocyte counton 11-26-2021 Lymphocytes Auto (Unsp spec) [#/Vol] 1.78 10*3/uL 0.83-4.51 [facility] Work Phone: Basophil percentageon 2021 Basophils/100 WBC (Bld) 1.0 % 0-1 [facility] Work Phone: Chloride [Moles/Vol] 110 mmol/L 98-107 [facility] Work Phone: Eosinophils/100 WBC (Bld) 4.7 % 0-5 [facility] Work Phone: Glucose [Mass/Vol] 91 mg/dL 74-106 [facility] Work Phone: Comment on above: Please note revised GLUCOSE reference range effective 2017. Neutrophils (Bld) [#/Vol] 3.1 10*3/uL 2.0-7.7 [facility] Work Phone: [phone] Neutrophils/100 WBC (Bld) 53.4 % 47-70 [facility] Work Phone: Potassium [Moles/Vol] 3.7 mmol/L 3.5-5.1 [facility] Work Phone: Sodium [Moles/Vol] 142 mmol/L 136-145 [facility] Work Phone: WBC (Bld) [#/Vol] 5.7 10*3/uL 4.4-11.0 [facility] Work Phone: Blood erythrocytes count (nu mber/volume)on 11-26-2021 RBC (Bld) [#/Vol] 4.83 10*6/uL 4.6-6.2 [facility] Work Phone: Blood hemoglobin measurement (mass/volume)on 11-26-2021 Hemoglobin (Bld) [Mass/Vol] 14.7 g/dL 13.0-16.5 [facility] Work Phone: Blood lymphocytes/100 leukoc yteson 11-26-2021 Lymphocytes/100 WBC (Bld) 31.1 % 19-41 [facility] Work Phone: Blood monocytes/100 leukocyt eson 11-26-2021 Monocytes/100 WBC (Bld) 9.1 % 0-10 [facility] Work Phone: Blood platelet mean volumeon 11-26-2021 Platelet mean volume (Bld) [Entitic vol] 10.0 fL 6.2-12.0 [facility] Work Phone: Determination of erythrocyte mean corpuscular volume (MCV)on 11-26-2021 MCV (RBC) [Entitic vol] 90.1 fL 80-94 [facility] Work Phone: Hematocrit Auto (Bld) [Volum e fraction]on 11-26-2021 Hematocrit (Bld) [Volume fraction] 43.5 % 40-54 [facility] Work Phone: Laboratory - Chemistry and C hemistry - challengeon 11-26-2021 CO2 [Moles/Vol] 26.0 mmol/L 21.0-32.0 [facility] Work Phone: Natriuretic peptide B (Bld) [Mass/Vol] 30.3 pg/mL 0-100 [facility] Work Phone: Urea nitrogen/Creatinine [Mass ratio] 14.2 mg/mg 10-20 [facility] Work Phone: Laboratory - Hematology and Cell countson 11-26-2021 Erythrocyte distribution width (RBC) [Entitic vol] 41.7 fL 35.1-43.9 [facility] Work Phone: Erythrocyte distribution width (RBC) [Ratio] 12.6 % 11.6-14.6 [facility] Work Phone: Immature granulocytes/100 WBC (Bld) 0.700 % 0.0-0.9 [facility] Work Phone: Comment on above: IG% - Immature Granu locytes (promyelocytes, myelocytes and metamyelocytes) > 1% indicates that a LEFT SHIFT is Present. MCH (RBC) [Entitic mass] 30.4 pg 27.0-32.0 [facility] Work Phone: Nucleated RBC/100 WBC (Bld) [Ratio] 0 % 0-5 [facility] Work Phone: MCHC Auto (RBC) [Mass/Vol]on 11-26-2021 MCHC (RBC) [Mass/Vol] 33.8 g/dL 32-36 [facility] Work Phone: No Panel Informationon 11-26 Troponin I High Sensitivity 16 pg/mL 3.0-78.0 [facility] Work Phone: Comment on above: Please Note: New Aurelia t Units and Gender Specific Reference Ranges. For more information see Policy Stat Procedure [place] High Sensitivity Troponin (TNIH) and attachments. SARS-CoV-2 Antigen (Rapid) [facility] Work Phone: D-Dimer Quantitative (PE/DVT) 3.29 FEU/ug/m 0.27-0.49 [facility] Work Phone: Comment on above: D-Dimer ELEVATED (>0 .49): Additional studies and clinicalassessments are indicated to conclude diagnosis of:Deep Vein Thrombosis (DVT) or Pulmonary Embolism (PE)CRITICAL VALUE VERIFIED. CALLED TO PEDRO KIM11/26/21 Rosana Jean.RESULTS READ BACK BY SAME . Estimated Creatinine Clearance Calc 59.22 ml/min [facility] Work Phone: Estimated GFR (MDRD) Amer 82 mL/min >60 [facility] Work Phone: Comment on above: GFR Calc Estimated GFR (MDRD) Non-Af Amer 67 mL/min >60 [facility] Work Phone: Comment on above: Non- GFR Calc Platelets bldon 11-26-2021 Platelets (Bld) [#/Vol] 208 10*3/uL 150-450 [facility] Work Phone: Serum or plasma calcium rell urement (mass/volume)on 11-26-2021 Calcium [Mass/Vol] 9.3 mg/dL 8.5-10.1 [facility] Work Phone: Serum or plasma creatinine m easurement (mass/volume)on 11-26-2021 Creatinine [Mass/Vol] 1.13 mg/dL 0.70-1.30 [facility] Work Phone: Comment on above: The validity of the calculated GFR & GFRAA in patients over 70 years has not been determined. Clinical correlation is essential. Serum or plasma urea nitroge n measurement (mass/volume)on 11-26-2021 Urea nitrogen [Mass/Vol] 16 mg/dL 7-18 [facility] Work Phone: Thin prep Papanicolaou smear with manual screeningon 11-26-2021 Thin prep Papanicolaou smear with manual screening 6 5-15 [facility] Work Phone: BMPon 05-04-2021 Anion gap [Moles/Vol] 6 mmol/L Normal 5-16 [facility] Comment on above: Order Comment: Campu s: M Performed By: #### L 500.27573, L500.92343 #### [facility] [address] [place] [address] Calcium [Mass/Vol] 9.6 mg/dL Normal 8.5-10.5 [facility] Comment on above: Order Comment: Campu s: M Result Comment: NOTE NEW NORMAL RANGE DUE TO REAGENT CHANGE Performed By: #### L 500.08296, L500.85053 #### [facility] [address] [place] [id number] Chloride [Moles/Vol] 109 mmol/L High 98-107 [facility] Comment on above: Order Comment: Campu s: M Performed By: #### L 500.43764, L500.55915 #### [facility] [address] [place] [id number] CO2 [Moles/Vol] 26.0 mmol/L Normal 21-32 [facility] Comment on above: Order Comment: Campu s: M Performed By: #### L 500.41058, L500.72490 #### [facility] [address] [place] [address] Creatinine [Mass/Vol] 1.04 mg/dL Normal 0.5-1.4 [facility] Comment on above: Order Comment: Campu s: M Result Comment: NOTE NEW NORMAL RANGE DUE TO REAGENT CHANGE Patients receiving either N-Acetylcysteine (NAC) or Metamizole prior to venipuncture, may have falsely depressed results. Performed By: #### L 500.63721, L5.01416 #### [facility] [address] [place] [address] Glucose [Mass/Vol] 102 mg/dL High 70-100 [facility] Comment on above: Order Comment: Campu s: M Result Comment: 70-1 00- Normal Fasting; 100-125 Impaired Fasting; greater than 126 on more than one result- Diabetes. ADA guidelines. Results may be falsely elevated after the administration of Sulfapyridine. Results may be falsely depressed after the administration of Sulfasalazine. Performed By: #### L 500.86433, L500.66023 #### [facility] [place] [address] Potassium [Moles/Vol] 4.4 mmol/L Normal 3.5-5.1 [facility] Comment on above: Order Comment: Campu s: M Performed By: #### L 500.75285, L500.57051 #### [facility] [address] [place] [address] Sodium [Moles/Vol] 141 mmol/L Normal 136-145 [facility] Comment on above: Order Comment: Campu s: M Performed By: #### L 500.77289, L500.96854 #### [facility] [address] [place] [address] Urea nitrogen [Mass/Vol] 24 mg/dL Normal 7-26 [facility] Comment on above: Order Comment: Campu s: M Performed By: #### L 500.55990, L500.68481 #### [facility] [address] [place] [address] Urea nitrogen/Creatinine [Mass ratio] 23 mg/mg Normal 15-24 [facility] Comment on above: Order Comment: Campu s: M Performed By: #### L 500.80094, L500.09959 #### [facility] [address] [place] [address] CBC W/DIFFon 05-04-2021 BASO ABS 0.10 K/CU MM Normal 0-0.2 [facility] Comment on above: Order Comment: Campu s: M Performed By: #### L 200.44406 #### [facility] [address] [place] [address] Basophils/100 WBC (Bld) 0.9 % Normal 0-2 [facility] Comment on above: Order Comment: Campu s: M Performed By: #### L 200.90441 #### [facility] [address] [place] [address] EOS ABS 0.20 K/CU MM Normal 0-0.5 [facility] Comment on above: Order Comment: Campu s: M Performed By: #### L 200.83316 #### [facility] [address] [place] [address] Eosinophils/100 WBC (Bld) 1.7 % Normal 0-5 [facility] Comment on above: Order Comment: Campu s: M Performed By: #### L 200.86737 #### [facility] [address] [place] [address] Erythrocyte distribution width (RBC) [Ratio] 13.0 % Normal 11-14.5 [facility] Comment on above: Order Comment: Campu s: M Performed By: #### L 200.09252 #### [facility] [address] [place] [address] Hematocrit (Bld) [Volume fraction] 42.8 % Normal 41.0-53.0 [facility] Comment on above: Order Comment: Campu s: M Performed By: #### L 200.43297 #### [facility] [address] [place] [address] Hemoglobin (Bld) [Mass/Vol] 14.2 g/dL Normal 13.5-17.5 [facility] Comment on above: Order Comment: Campu s: M Performed By: #### L 200.48746 #### [facility] [address] [place] [address] IMMATR GRAN ABS 0.10 K/CU MM Normal Less than 2 [facility] Comment on above: Order Comment: Campu s: M Performed By: #### L 200.29942 #### [facility] [address] [place] [address] IMMATURE GRAN % 0.8 % Normal Less than 2 [facility] Comment on above: Order Comment: Campu s: M Performed By: #### L 200.97064 #### [facility] [address] [place] [address] LYMPH ABS 1.10 K/CU MM Normal 0.9-4.4 [facility] Comment on above: Order Comment: Campu s: M Performed By: #### L 200.22010 #### [facility] [address] [place] [address] Lymphocytes/100 WBC (Bld) 11.9 % Low 20-40 [facility] Comment on above: Order Comment: Campu s: M Performed By: #### L 200.80792 #### [facility] [address] [place] [address] MCHC (RBC) [Mass/Vol] 33.2 g/dL Normal 32.0-36.0 [facility] Comment on above: Order Comment: Campu s: M Performed By: #### L 200.89213 #### [facility] [address] [place] [address] MCV (RBC) [Entitic vol] 92.8 fL Normal 80.0-99.0 [facility] Comment on above: Order Comment: Campu s: M Performed By: #### L 200.61436 #### [facility] [address] [place] [address] MONO ABS 0.50 K/CU MM Normal 0.1-1.1 [facility] Comment on above: Order Comment: Campu s: M Performed By: #### L 200.09326 #### [facility] [address] [place] [address] Monocytes/100 WBC (Bld) 6.0 % Normal 2-10 [facility] Comment on above: Order Comment: Campu s: M Performed By: #### L 200.96294 #### [facility] [address] [place] [address] NEUTROPHIL ABS 7.00 K/CU MM Normal 2.0-8.3 [facility] Comment on above: Order Comment: Campu s: M Performed By: #### L 200.47430 #### [facility] [address] [place] [address] Neutrophils/100 WBC (Bld) 78.7 % High 45-75 [facility] Comment on above: Order Comment: Campu s: M Performed By: #### L 200.50993 #### [facility] [address] [place] [address] Nucleated RBC/100 WBC (Bld) [Ratio] 0.0 % Normal Less than 1 [facility] Comment on above: Order Comment: Campu s: M Performed By: #### L 200.96403 #### [facility] [address] [place] [address] Platelet mean volume (Bld) [Entitic vol] 9.8 fL Normal 9.4-12.4 [facility] Comment on above: Order Comment: Campu s: M Performed By: #### L 200.68321 #### [facility] [address] [place] [address] PLT 199 K/CU MM Normal 150-450 [facility] Comment on above: Order Comment: Campu s: M Performed By: #### L 200.35803 #### [facility] [address] [place] [address] RBC 4.61 M/CU MM Normal 4.50-6.00 [facility] Comment on above: Order Comment: Campu s: M Performed By: #### L 200.41727 #### [facility] [address] [place] [address] WBC 8.9 K/CUMM Normal 4.5-11.0 [facility] Comment on above: Order Comment: Campu s: M Performed By: #### L 200.01065 #### [facility] [address] [place] [address] EKGon 05-04-2021 Electrocardiogram Procedure Date and T [...] GRIGSBY M.D.FACC Frankie DDandT: 05/04/21 1534 TDandT: [facility] PATIENT NAME: LIBRADO GUILLEN [facility] [address] [facility] MEDICAL REC #: [id number] [place] [address] ADMIT DATE: DISCHARGE DATE: ATTENDING PHY: Yohana Franz,Emergency Physi ELECTROCARDIOGRAM REPORT CLB cc: [facility] PATIENT NAME: LIBRADO GUILLEN [facility] [address] [facility] MEDICAL REC #: [id number] [place] [address] ADMIT DATE: DISCHARGE DATE: ATTENDING PHY: Yohana Franz,Emergency Physi ELECTROCARDIOGRAM REPORT Normal [facility] Electrocardiogram Procedure Date and T tesfaye: 05/04/21 [...] GRIGSBY M.D.FACC Frankie DDandT: 05/04/21 1241 TDandT: [facility] PATIENT NAME: LIBRADO GUILLEN [facility] [address] MEDICAL REC #: [id number] [place] [address] ADMIT DATE: DISCHARGE DATE: ATTENDING PHY: Yohana Franz,Emergency Physi ELECTROCARDIOGRAM REPORT CLB cc: [facility] PAT[facility]: [facility] MED[facility] REC #: [id number] [place] [address] ADMIT DATE: DISCHARGE DATE: ATTENDING PHY: Yohana Franz,Emergency Physi ELECTROCARDIOGRAM REPORT Normal [facility] Susan 05-04-2021 EMERGENCY PHYSICIAN REPORT This is a preliminary report only, as the practitioner review and authentication has not occurred. Normal [facility] ER PHYSICIAN ASSESSMENT RECORDS : FlexChartData Event Time: 05/04/2021 13:15 Status: Signed [facility] Librado Guillen [[id number]] Attending Physician / 1945 Chart (V2b) Chart created at 05/04/2021 13:08 by Parish Henry Chart closed at 05/04/2021 16:28 Entry in Emergency Department at 05/04/2021 12:24, departure at 05/04/2021 16:54 Patient Name: Librado Guillen Record Number: [id number] Date: 05/04/2021 13:08 Entered Department at: 05/04/2021 [...] has been seen by his doctors [facility]. He is on PPI. He states that the only thing he knows that really gives him some relief is Pepto-Bismol. This is a symptoms that he has very regularly. Today he was going for outpatient lab at the [facility] and when he got there he started get dizzy and [facility] PATIENT NAME: LIBRADO GUILLEN [address] MEDICAL REC #: [id number] [place] [address] EMERGENCY DEPARTMENT REPORT EMERGENCY DEPARTMENT PHYSICIAN lightheaded. He felt weak as if he might pass out. He was having this chest discomfort. They called EMS to bring him here to the emergency department. He was admitted at [facility] several weeks ago for his chest pain. [...] information as of 05/04/2021, 12:33 pm 92.8 [facility] PATIENT NAME: LIBRADO GUILLEN [address] [facility] [address] MEDICAL REC #: [id number] [place] [address] EMERGENCY DEPARTMENT REPORT EMERGENCY DEPARTMENT PHYSICIAN / [...] he is his baseline. Is placed on search analyst. Has been in sinus rhythm. Cardiac testing here included EKG x2 which has been sinus rhythm without ischemic findings (more content not included)... Normal [facility] GFR ESTon 05-04-2021 IF AMER Greater than 60 Normal [facility] Comment on above: Order Comment: Polo s: M Performed By: #### L 500.85467, L500.00572 #### [facility] [address] [place] [address] IF non-AFR AMER Greater than 60 Normal [facility] Comment on above: Order Comment: Polo s: M Performed By: #### L 500.18785, L500.43933 #### [facility] [address] [place] [address] TROPONIN Ion 05-04-2021 Troponin I.cardiac [Mass/Vol] 2.5 ng/mL Normal 0-54 [facility] Comment on above: Order Comment: Polo s: M Result Comment: NOTE NEW NORMAL RANGE DUE TO REAGENT CHANGE This assay uses different antibodies than our current assay, and assays, even by the same corporate trust officer may recognize different regions of the antibody and cannot be used interchangeably. Expect results of this assay to run higher than the previous assay. Performed By: #### L 550.19331 #### [facility] [address] [place] [address] Troponin I.cardiac [Mass/Vol] 2.5 ng/mL Normal 0-54 [facility] Comment on above: Order Comment: Polo s: M Result Comment: NOTE NEW NORMAL RANGE DUE TO REAGENT CHANGE This assay uses different antibodies than our current assay, and assays, even by the same corporate trust officer may recognize different regions of the antibody and cannot be used interchangeably. Expect results of this assay to run higher than the previous assay. Performed By: #### L 550.70793 #### [facility] [address] [place], [place] [id number] MRI SPINE LUMBAR W/O CONTRAS [place] 01-04-2020 [...] Sign Date: 01/04/2020 4:42:29 PM Ordering Provider:Philippe Wahl [facility] ([place]) Rona 12-29-2019 EFRA [facility] MICRO - Microbiology [...] Locations *1: This test was performed at: [facility], [address] [place] [address], [address] , [facility] ([place]) Comment on above: Performed By: #### C GIOVANA RIZVI, ANEU #### [address] [address] #### TROP, LIP, CMP, GFR #### [address] [address] .Auto Diffon 12-26-2019 Ammonia (P) [Mass/Vol] 0.60 10 3/mcL Normal 0.15-1.00 [facility] ([place]) Comment on above: Performed By: #### GIOVANA SILVEIRA, ANEU #### [address] [address] #### TROP, LIP, CMP, GFR, LAC #### [address] [address] Basophils (Bld) [#/Vol] 0.10 10 3/mcL Normal 0.00-0.19 [facility] ([place]) Comment on above: Performed By: #### GIOVANA SILVEIRA, ANEU #### [place] [address] #### TROP, LIP, CMP, GFR, LAC #### [address] [address] Basophils/100 WBC (Bld) 1.3 % Normal 0.0-2.5 [facility] ([place]) Comment on above: Performed By: #### GIOVANA SILVEIRA, ANEU #### [address] [address] #### TROP, LIP, CMP, GFR, LAC #### [address] [address] Eosinophils (Bld) [#/Vol] 0.40 10 3/mcL Normal 0.00-0.40 [facility] ([place]) Comment on above: Performed By: #### C BC, ADIFF, ANEU #### [address] [address] #### TROP, LIP, CMP, GFR, LAC #### [address] [address] Eosinophils/100 WBC (Bld) 5.3 % Normal 0.0-7.0 [facility] ([place]) Comment on above: Performed By: #### C BC, ADIFF, ANEU #### [place] [address] #### TROP, LIP, CMP, GFR, LAC #### [address] [address] Lymphocytes (Bld) [#/Vol] 1.90 10 3/mcL Normal 0.77-3.85 [facility] ([place]) Comment on above: Performed By: #### C BC, ADIFF, ANEU #### [place] [address] #### TROP, LIP, CMP, GFR, LAC #### [address] [address] Lymphocytes/100 WBC (Bld) 26.5 % Normal 10.0-50.0 [facility] ([place]) Comment on above: Performed By: #### C BC, ADIFF, ANEU #### [place] [address] #### TROP, LIP, CMP, GFR, LAC #### [address] [address] Monocytes/100 WBC (Bld) 8.4 % Normal 1.7-13.0 [facility] ([place]) Comment on above: Performed By: #### C BC, ADIFF, ANEU #### [place] [address] #### TROP, LIP, CMP, GFR, LAC #### [address] [address] Neutrophils/100 WBC (Bld) 58.5 % Normal 37.0-80.0 [facility] ([place]) Comment on above: Performed By: #### C GIOVANA RIZVI, ANEU #### [place]ian [address] [address] #### TROP, LIP, CMP, GFR, LAC #### [address] [address] .GFRon 12-26-2019 GFR Non- 60 ml/min/1.73sqm Normal [facility] ([place]) Comment on above: Result Comment: GFR Population [...] #### C GIOVANA RIZVI, ANEU #### [place] [address] [address] #### TROP, LIP, CMP, GFR #### [address] [address] GFR 72 ml/min/1.73sqm Normal [facility] ([place]) Comment on above: Result Comment: GFR Population [...] By: #### C BC, ADIFF, ANEU #### [place] [address] #### TROP, LIP, CMP, GFR #### [place] [address] .NEUABSon 12-26-2019 Neutrophils (Bld) [#/Vol] 4.20 10 3/mcL Normal 2.85-6.16 [facility] ([place]) Comment on above: Performed By: #### C BC, ADIFF, ANEU #### [place] [address] #### TROP, LIP, CMP, GFR, LAC #### [place] [address] .Urinalysis Microscopic (AO) on 12-26-2019 RBC (U) [#/Vol] None Seen Normal None Seen [facility] ([place]) Comment on above: Performed By: #### C BC, ADIFF, ANEU #### [place] [address] #### TROP, LIP, CMP, GFR #### [place] [address] UA Mucous 2+ /hpf Normal [facility] ([place]) Comment on above: Performed By: #### C BC, ADIFF, ANEU #### [place] [address] #### TROP, LIP, CMP, GFR #### [place] [address] UA Squam Epithelial None Seen Normal None Seen [facility] ([place]) Comment on above: Performed By: #### C BC, ADIFF, ANEU #### [place] [address] #### TROP, LIP, CMP, GFR #### [place] [address] UA WBC 0-5 Abnormal None Seen [facility] ([place]) Comment on above: Performed By: #### C BC, ADIFF, ANEU #### [address] [address] #### TROP, LIP, CMP, GFR #### [address] [address] CBCon 12-26-2019 Erythrocyte distribution width (RBC) [Ratio] 13.1 % Normal 11.5-14.5 [facility] ([place]) Comment on above: Performed By: #### C BC, ADIFF, ANEU #### [place] [address] #### TROP, LIP, CMP, GFR, LAC #### [place] [address] Hematocrit (Bld) [Volume fraction] 43.1 % Normal 42.0-52.0 [facility] ([place]) Comment on above: Performed By: #### C DMITRI, ADIFF, ANEU #### [place] [address] #### TROP, LIP, CMP, GFR, LAC #### [place] [address] Hemoglobin (Bld) [Mass/Vol] 14.8 G/dL Normal 14.0-18.0 [facility] ([place]) Comment on above: Performed By: #### C BC, ADIFF, ANEU #### [place] [address] #### TROP, LIP, CMP, GFR, LAC #### [place] [address] MCH (RBC) [Entitic mass] 31.6 pg High 27.0-31.2 [facility] ([place]) Comment on above: Performed By: #### C BC, ADIFF, ANEU #### [place] [address] #### TROP, LIP, CMP, GFR, LAC #### [address] [address] MCHC (RBC) [Mass/Vol] 34.5 G/dL Normal 31.8-35.4 [facility] ([place]) Comment on above: Performed By: #### C BC, ADIFF, ANEU #### [place] [address] #### TROP, LIP, CMP, GFR, LAC #### [address] [address] MCV (RBC) [Entitic vol] 91.7 fL Normal 80.0-94.0 [facility] ([place]) Comment on above: Performed By: #### C BC, ADIFF, ANEU #### [place] [address] #### TROP, LIP, CMP, GFR, LAC #### [address] [address] Platelet mean volume (Bld) [Entitic vol] 8.5 fL Normal 7.4-10.4 [facility] ([place]) Comment on above: Performed By: #### C BC, ADIFF, ANEU #### [place] [address] #### TROP, LIP, CMP, GFR, LAC #### [address] [address] Platelets (Bld) [#/Vol] 180 10 3/mcL Normal 130-400 [facility] ([place]) Comment on above: Performed By: #### C BC, ADIFF, ANEU #### [place] [address] #### TROP, LIP, CMP, GFR, LAC #### [address] [address] RBC (Bld) [#/Vol] 4.70 10 6/mcL Normal 4.04-6.13 [facility] ([place]) Comment on above: Performed By: #### C BC, ADIFF, ANEU #### [place] [address] #### TROP, LIP, CMP, GFR, LAC #### [address] [address] WBC (Bld) [#/Vol] 7.20 10 3/mcL Normal 4.60-10.80 [facility] ([place]) Comment on above: Performed By: #### C BC, ADIFF, ANEU #### [address] [address] #### TROP, LIP, CMP, GFR, LAC #### [address] [address] CMPon 12-26-2019 Albumin [Mass/Vol] 4.2 G/dL Normal 3.4-4.8 [facility] ([place]) Comment on above: Performed By: #### C BC, ADIFF, ANEU #### [place] [address] #### TROP, LIP, CMP, GFR #### [address] [address] Albumin/Globulin [Mass ratio] 1.4 {ratio} Normal 1.1-2.5 [facility] ([place]) Comment on above: Performed By: #### C BC, ADIFF, ANEU #### [place] [address] #### TROP, LIP, CMP, GFR #### [address] [address] ALP [Catalytic activity/Vol] 103 U/L Normal 40-135 [facility] ([place]) Comment on above: Performed By: #### C BC, ADIFF, ANEU #### [place] [address] #### TROP, LIP, CMP, GFR #### [address] [address] ALT [Catalytic activity/Vol] 70 U/L High 10-35 [facility] ([place]) Comment on above: Performed By: #### C BC, ADIFF, ANEU #### [place] [address] #### TROP, LIP, CMP, GFR #### [address] [address] AST [Catalytic activity/Vol] 38 U/L Normal 10-40 [facility] ([place]) Comment on above: Performed By: #### C BC, ADIFF, ANEU #### [address] [address] #### TROP, LIP, CMP, GFR #### [address] [address] Bili Total 0.7 mg/dL Normal 0.2-1.0 [facility] ([place]) Comment on above: Performed By: #### C BC, ADIFF, ANEU #### [place] [address] #### TROP, LIP, CMP, GFR #### [address] [address] Calcium [Mass/Vol] 9.1 mg/dL Normal 8.4-10.2 [facility] ([place]) Comment on above: Performed By: #### C BC, ADIFF, ANEU #### [place] [address] #### TROP, LIP, CMP, GFR #### [address] [address] Chloride [Moles/Vol] 106 mmol/L Normal 98-107 [facility] ([place]) Comment on above: Performed By: #### C BC, ADIFF, ANEU #### [place] [address] #### TROP, LIP, CMP, GFR #### [address] [address] CO2 [Moles/Vol] 26 mmol/L Normal 23-31 [facility] ([place]) Comment on above: Performed By: #### C BC, ADIFF, ANEU #### [address] [address] #### TROP, LIP, CMP, GFR #### [address] [address] Creatinine [Mass/Vol] 1.20 mg/dL Normal 0.70-1.30 [facility] ([place]) Comment on above: Performed By: #### C BC, ADIFF, ANEU #### [address] [place] [address] #### TROP, LIP, CMP, GFR #### [address] [address] Electrolyte Balance 13.0 mEq/L Normal [facility] ([place]) Comment on above: Performed By: #### C BC, ADIFF, ANEU #### [address] [address] #### TROP, LIP, CMP, GFR #### [address] [address] Globulin (S) [Mass/Vol] 3.1 G/dL Normal [facility] ([place]) Comment on above: Performed By: #### C BC, ADIFF, ANEU #### [place] [address] #### TROP, LIP, CMP, GFR #### [address] [address] Glucose [Mass/Vol] 105 mg/dL Normal 83-110 [facility] ([place]) Comment on above: Performed By: #### C BC, ADIFF, ANEU #### [address] [address] #### TROP, LIP, CMP, GFR #### [address] [address] Potassium [Moles/Vol] 4.2 mmol/L Normal 3.5-5.1 [facility] ([place]) Comment on above: Performed By: #### C BC, ADIFF, ANEU #### [place] [id number] #### TROP, LIP, CMP, GFR #### [address] [address] Protein [Mass/Vol] 7.3 G/dL Normal 6.4-8.2 [facility] ([place]) Comment on above: Performed By: #### C BC, ADIFF, ANEU #### [address] [address] #### TROP, LIP, CMP, GFR #### [address] [address] Sodium [Moles/Vol] 145 mmol/L Normal 136-145 [facility] ([place]) Comment on above: Performed By: #### C BC, ADIFF, ANEU #### [address] [address] #### TROP, LIP, CMP, GFR #### [address] [address] Urea nitrogen [Mass/Vol] 19 mg/dL High 7-18 [facility] ([place]) Comment on above: Performed By: #### C BC, ADIFF, ANEU #### [address] [address] #### TROP, LIP, CMP, GFR #### [address] [address] Urea nitrogen/Creatinine [Mass ratio] 16 ratio Normal 7-27 [facility] ([place]) Comment on above: Performed By: #### C BC, ADIFF, ANEU #### [address] [address] #### TROP, LIP, CMP, GFR #### [address] [address] [address] ABD/PELVIS W/ IV CONTRAST ONLYon 12-26-2019 [...] Date: 12/26/2019 4:29:03 PM Ordering Provider:Paddy Wahl [facility] ([place]) Weaver 12-26-2019 Lactic Acid Lvl 1.1 mmol/L Normal 0.4-2.0 [facility] ([place]) Comment on above: Performed By: #### C BCGIOVANA, ANEU #### [address] [address] #### TROP, LIP, CMP, GFR #### [address] [address] Lactic Acid Lvl 2.4 mmol/L High 0.4-2.0 [facility] ([place]) Comment on above: Performed By: #### C BC, ADIFF, ANEU #### [address] [address] #### TROP, LIP, CMP, GFR #### [address] [address] LIPon 12-26-2019 Lipase Level 81 U/L Normal 73-393 [facility] ([place]) Comment on above: Performed By: #### C BC, ADIFF, ANEU #### [address] [address] #### TROP, LIP, CMP, GFR #### [place] [address] TROPon 12-26-2019 Troponin I.cardiac [Mass/Vol] 0.027 ng/mL Normal 0.000-0.04 0 [facility] ([place]) Comment on above: Result Comment: Trop onin I reference range: 0.00-0.040 ng/mL Negative and non-diagnostic. >0.040 ng/mL Consistent with cardiac damage, increased clinical risk and possibility of myocardial infarction. Serial measurements, a rise & fall in test results, clinical history, appropriate symptoms and/or ECG changes may help assess possibility of PA. *Other non-acute coronary syndrome conditions such as CHF, myocarditis, pulmonary emboli, sepsis and cardiac surgery could result in myocardial damage and increased troponin levels. Performed By: #### C BC, ADIFF, ANEU #### [place] [address] #### TROP, LIP, CMP, GFR #### [place] [address] UA 12-26-2019 Color (U) Dark yellow Normal [facility] ([place] Comment on above: Performed By: #### C BC, ADIFF, ANEU #### [address] [address] #### TROP, LIP, CMP, GFR #### [place] [address] Glucose (U) [Mass/Vol] Negative Normal Negative [facility] ([place]) Comment on above: Performed By: #### C BC, ADIFF, ANEU #### [place] [id number] #### TROP, LIP, CMP, GFR #### [place] [address] Ketones Ql (U) >=160 Abnormal Negative [facility] ([place]) Comment on above: Performed By: #### C BC, ADIFF, ANEU #### [address] [address] #### TROP, LIP, CMP, GFR #### [place] [address] UA Appear Slightly Cloudy Abnormal Clear [facility] ([place]) Comment on above: Performed By: #### C BC, ADIFF, ANEU #### [place] [address] #### TROP, LIP, CMP, GFR #### [place] [address] UA Blood Trace Abnormal Negative [facility] ([place]) Comment on above: Performed By: #### C BC, ADIFF, ANEU #### [place] [address] #### TROP, LIP, CMP, GFR #### [place] [address] UA Leuk Est Negative Normal Negative [facility] ([place]) Comment on above: Performed By: #### C BC, ADIFF, ANEU #### [place] [address] #### TROP, LIP, CMP, GFR #### [place] [address] UA Nitrite Negative Normal Negative [facility] ([place]) Comment on above: Performed By: #### C BC, ADIFF, ANEU #### [place] [address] #### TROP, LIP, CMP, GFR #### [place] [address] UA pH 7.5 Normal 5.0 - 8.0 [facility] ([place]) Comment on above: Performed By: #### C BC, ADIFF, ANEU #### [place] [address] #### TROP, LIP, CMP, GFR #### [address] [address] UA Protein Negative Normal Negative [facility] ([place]) Comment on above: Performed By: #### C BC, ADIFF, ANEU #### [address] [address] #### TROP, LIP, CMP, GFR #### [place] [address] UA Spec Grav 1.015 Normal 1.015-1.02 5 [facility] ([place]) Comment on above: Performed By: #### C BC, ADIFF, ANEU #### [place] [address] #### TROP, LIP, CMP, GFR #### [place] [address] UA Specimen Type Clean Catch Normal [facility] ([place]) Comment on above: Performed By: #### C BC, ADIFF, ANEU #### [place] [address] #### TROP, LIP, CMP, GFR #### [place] [address] UA Urobilinogen 0.2 E.U./dL Normal 0.2-1.0 [facility] ([place]) Comment on above: Performed By: #### C BC, ADIFF, ANEU #### [place] [address] #### TROP, LIP, CMP, GFR #### [place] [address] Urobilinogen Qn (U) Small Abnormal Negative [facility] ([place]) Comment on above: Performed By: #### C BC, ADIFF, ANEU #### [place] [address] #### TROP, LIP, CMP, GFR #### [place] [address] XR CHEST 1 VIEWon 12-26-2019 XR CHEST [...] Date: 12/26/2019 3:12:24 PM Ordering Provider:Paddy Wahl [facility] ([place]) .Auto Diffon 12-16-2019 Ammonia (P) [Mass/Vol] 0.90 10 3/mcL Normal 0.15-1.00 [facility] ([place]) Comment on above: Performed By: #### C GIOVANA RIZVI, ANEU #### [place] [address] #### TROP, LIP, CMP, GFR #### [address] [address] Basophils (Bld) [#/Vol] 0.20 10 3/mcL High 0.00-0.19 [facility] ([place]) Comment on above: Performed By: #### C GIOVANA RIZVI, ANEU #### [place] [address] #### TROP, LIP, CMP, GFR #### [address] [address] Basophils/100 WBC (Bld) 2.1 % Normal 0.0-2.5 [facility] ([place]) Comment on above: Performed By: #### C BC ADANDREW, ANEU #### [place] [address] #### TROP, LIP, CMP, GFR #### [address] [address] Eosinophils (Bld) [#/Vol] 0.30 10 3/mcL Normal 0.00-0.40 [facility] ([place]) Comment on above: Performed By: #### C BC, ADIFF, ANEU #### [address] [address] #### TROP, LIP, CMP, GFR #### [address] [address] Eosinophils/100 WBC (Bld) 3.0 % Normal 0.0-7.0 [facility] ([place]) Comment on above: Performed By: #### C BC, ADIFF, ANEU #### [place] [address] #### TROP, LIP, CMP, GFR #### [address] [address] Lymphocytes (Bld) [#/Vol] 2.20 10 3/mcL Normal 0.77-3.85 [facility] ([place]) Comment on above: Performed By: #### C BC, ADIFF, ANEU #### [place] [address] #### TROP, LIP, CMP, GFR #### [address] [address] Lymphocytes/100 WBC (Bld) 21.5 % Normal 10.0-50.0 [facility] ([place]) Comment on above: Performed By: #### C BC, ADIFF, ANEU #### [place] [address] #### TROP, LIP, CMP, GFR #### [address] [address] Monocytes/100 WBC (Bld) 8.4 % Normal 1.7-13.0 [facility] ([place]) Comment on above: Performed By: #### C BC, ADIFF, ANEU #### [place] [address] #### TROP, LIP, CMP, GFR #### [address] [address] Neutrophils/100 WBC (Bld) 65.0 % Normal 37.0-80.0 [facility] ([place]) Comment on above: Performed By: #### C BC, ADIFF, ANEU #### [address] [address] #### TROP, LIP, CMP, GFR #### [address] [address] .GFRon 12-16-2019 GFR 78 ml/min/1.73sqm Normal [facility] ([place]) Comment on above: Result Comment: GFR Population [...] By: #### C BC, ADIFF, ANEU #### [address] [address] #### TROP, LIP, CMP, GFR #### [address] [address] GFR Non- 64 ml/min/1.73sqm Normal [facility] ([place]) Comment on above: Result Comment: GFR Population [...] By: #### C BC, ADIFF, ANEU #### [place] [address] #### TROP, LIP, CMP, GFR #### [address] [address] .NEUABSon 12-16-2019 Neutrophils (Bld) [#/Vol] 6.60 10 3/mcL High 2.85-6.16 [facility] ([place]) Comment on above: Performed By: #### C GIOVANA RIZVI, ANEU #### [place] [address] #### TROP, LIP, CMP, GFR #### [address] [address] CBCon 12-16-2019 Erythrocyte distribution width (RBC) [Ratio] 13.6 % Normal 11.5-14.5 [facility] ([place]) Comment on above: Performed By: #### C GIOVANA RIZVI, ANEU #### [place] [address] #### TROP, LIP, CMP, GFR #### [place] [address] Hematocrit (Bld) [Volume fraction] 42.7 % Normal 42.0-52.0 [facility] ([place] Comment on above: Performed By: #### C GIOVANA RIZVI, ANEU #### [place] [address] #### TROP, LIP, CMP, GFR #### [place] [address] Hemoglobin (Bld) [Mass/Vol] 14.3 G/dL Normal 14.0-18.0 [facility] ([place] Comment on above: Performed By: #### C GIOVANA RIZVI, ANEU #### [place] [address] #### TROP, LIP, CMP, GFR #### [place] [address] MCH (RBC) [Entitic mass] 31.1 pg Normal 27.0-31.2 [facility] ([place] Comment on above: Performed By: #### C GIOVANA RIZVI, ANEU #### [address] [address] #### TROP, LIP, CMP, GFR #### [address] [address] MCHC (RBC) [Mass/Vol] 33.5 G/dL Normal 31.8-35.4 [facility] ([place]) Comment on above: Performed By: #### C ABDIFATAH RIZVIIFF, ANEU #### [place] [address] #### TROP, LIP, CMP, GFR #### [address] [address] MCV (RBC) [Entitic vol] 92.7 fL Normal 80.0-94.0 [facility] ([place]) Comment on above: Performed By: #### GIOVANA SILVEIRA, ANEU #### [place] [address] #### TROP, LIP, CMP, GFR #### [place] [address] Platelet mean volume (Bld) [Entitic vol] 9.5 fL Normal 7.4-10.4 [facility] ([place]) Comment on above: Performed By: #### GIOVANA SILVEIRA, ANEU #### [place] [address] #### TROP, LIP, CMP, GFR #### [place] [id number] Platelets (Bld) [#/Vol] 263 10 3/mcL Normal 130-400 [facility] ([place]) Comment on above: Performed By: #### C DMITRI, ADIFF, ANEU #### [place] [address] #### TROP, LIP, CMP, GFR #### [place] [id number] RBC (Bld) [#/Vol] 4.60 10 6/mcL Normal 4.04-6.13 [facility] ([place]) Comment on above: Performed By: #### C BC, ADIFF, ANEU #### [address] [address] #### TROP, LIP, CMP, GFR #### [address] [address] WBC (Bld) [#/Vol] 10.20 10 3/mcL Normal 4.60-10.80 [facility] ([place]) Comment on above: Performed By: #### C BC, ADIFF, ANEU #### [place] [address] #### TROP, LIP, CMP, GFR #### [address] [address] CMPon 12-16-2019 Albumin [Mass/Vol] 3.9 G/dL Normal 3.4-4.8 [facility] ([place]) Comment on above: Performed By: #### C BC, ADIFF, ANEU #### [place] [address] #### TROP, LIP, CMP, GFR #### [address] [address] Albumin/Globulin [Mass ratio] 1.3 {ratio} Normal 1.1-2.5 [facility] ([place]) Comment on above: Performed By: #### C BC, ADIFF, ANEU #### [place] [address] #### TROP, LIP, CMP, GFR #### [address] [address] ALP [Catalytic activity/Vol] 84 U/L Normal 40-135 [facility] ([place]) Comment on above: Performed By: #### C BC, ADIFF, ANEU #### [place] [address] #### TROP, LIP, CMP, GFR #### [address] [address] ALT [Catalytic activity/Vol] 59 U/L High 10-35 [facility] ([place]) Comment on above: Performed By: #### C BC, ADIFF, ANEU #### [address] [address] #### TROP, LIP, CMP, GFR #### [address] [address] AST [Catalytic activity/Vol] 25 U/L Normal 10-40 [facility] ([place]) Comment on above: Performed By: #### C BC, ADIFF, ANEU #### [address] [address] #### TROP, LIP, CMP, GFR #### [address] [address] Bili Total 0.4 mg/dL Normal 0.2-1.0 [facility] ([place]) Comment on above: Performed By: #### C BC, ADIFF, ANEU #### [address] [address] #### TROP, LIP, CMP, GFR #### [address] [address] Calcium [Mass/Vol] 9.1 mg/dL Normal 8.4-10.2 [facility] ([place]) Comment on above: Performed By: #### C BC, ADIFF, ANEU #### [address] [address] #### TROP, LIP, CMP, GFR #### [address] [address] Chloride [Moles/Vol] 106 mmol/L Normal 98-107 [facility] ([place]) Comment on above: Performed By: #### C BC, ADIFF, ANEU #### [address] [address] #### TROP, LIP, CMP, GFR #### [address] [address] CO2 [Moles/Vol] 31 mmol/L Normal 23-31 [facility] ([place]) Comment on above: Performed By: #### C BC, ADIFF, ANEU #### [address] [address] #### TROP, LIP, CMP, GFR #### [address] [address] Creatinine [Mass/Vol] 1.12 mg/dL Normal 0.70-1.30 [facility] ([place]) Comment on above: Performed By: #### C BC, ADIFF, ANEU #### [address] [address] #### TROP, LIP, CMP, GFR #### [address] [address] Electrolyte Balance 7.0 mEq/L Normal [facility] ([place]) Comment on above: Performed By: #### C BC, ADIFF, ANEU #### [address] [address] #### TROP, LIP, CMP, GFR #### [address] [address] Globulin (S) [Mass/Vol] 3.0 G/dL Normal [facility] ([place]) Comment on above: Performed By: #### C BC, ADIFF, ANEU #### [address] [address] #### TROP, LIP, CMP, GFR #### [address] [address] Glucose [Mass/Vol] 113 mg/dL High 83-110 [facility] ([place]) Comment on above: Performed By: #### C BC, ADIFF, ANEU #### [address] [address] #### TROP, LIP, CMP, GFR #### [address] [address] Potassium [Moles/Vol] 4.8 mmol/L Normal 3.5-5.1 [facility] ([place]) Comment on above: Performed By: #### C BC, ADIFF, ANEU #### [address] [address] #### TROP, LIP, CMP, GFR #### [address] [address] Protein [Mass/Vol] 6.9 G/dL Normal 6.4-8.2 [facility] ([place]) Comment on above: Performed By: #### C BC, ADIFF, ANEU #### [address] [address] #### TROP, LIP, CMP, GFR #### [address] [address] Sodium [Moles/Vol] 144 mmol/L Normal 136-145 [facility] ([place]) Comment on above: Performed By: #### C BC, ADIFF, ANEU #### [address] [address] #### TROP, LIP, CMP, GFR #### [address] [address] Urea nitrogen [Mass/Vol] 16 mg/dL Normal 7-18 [facility] ([place]) Comment on above: Performed By: #### C BC, ADIFF, ANEU #### [place] [address] #### TROP, LIP, CMP, GFR #### [address] [address] Urea nitrogen/Creatinine [Mass ratio] 14 ratio Normal 7-27 [facility] ([place]) Comment on above: Performed By: #### C BC, ADIFF, ANEU #### [address] [address] #### TROP, LIP, CMP, GFR #### [address] [address] LIPon 12-16-2019 Lipase Level 76 U/L Normal 73-393 [facility] ([place]) Comment on above: Performed By: #### C BC, ADIFF, ANEU #### [address] [address] #### TROP, LIP, CMP, GFR #### [address] [address] TROPon 12-16-2019 Troponin I.cardiac [Mass/Vol] ng/mL Normal 0.000-0.04 0 [facility] ([place]) Comment on above: Result Comment: Trop onin I reference range: 0.00-0.040 ng/mL Negative and non-diagnostic. >0.040 ng/mL Consistent with cardiac damage, increased clinical risk and possibility of myocardial infarction. Serial measurements, a rise & fall in test results, clinical history, appropriate symptoms and/or ECG changes may help assess possibility of PA. *Other non-acute coronary syndrome conditions such as CHF, myocarditis, pulmonary emboli, sepsis and cardiac surgery could result in myocardial damage and increased troponin levels. Performed By: #### C BC, ADIFF, ANEU #### [facility] [address] [place], [place] [address] #### TROP, LIP, CMP, GFR #### [address] [address] CNOVon 11-05-2018 CNOV Office Visit ([id number]) ----LIBRADO GUILLEN ([id number]) 1945 [facility] Hztzbfsnxc94/12/18 9:45 AM TONIO TERAN JR [id number] During [...] information in this document, created bythe medical data analyst for me, accurately reflects the services I personallyperformed and the decisions made by me. I have reviewed and approved thisdocument for accuracy.JAVIER Akbarlease note: This note has been produced using speech recognition software andmay contain errors related to that system including grammar, punctuation,spelling, gender and words and phrases that may be inappropriate.Referring Provider: TONIO TERAN JR [[id number]]Allergies As of Date: 11/05/2018(No Known Allergies)Date Reviewed: [...] to improve.Follow-up and Disposition History RecordedEncounter Number: [id number] Status:Closed by TONIO TERAN MD on 11/13/18 [facility] PROGRESSon 11-05-2018 Protein mass conc HNO ID: [id number] thor: Tonio Teran Jr.Service: (none)Author Type: PhysicianType: [...] information in this document, createdby the medical data analyst for me, accurately reflects the services Ipersonally performed and the decisions made by me. I have reviewed andapproved this document for accuracy.Rolando Akbar note: This note has been produced using speech recognition softwareand may contain errors related to that system including grammar,punctuation, spelling, gender and words and phrases that may beinappropriate. Normal [facility] Protein mass conc HNO ID: [id number] thor: Wendi (Tech) Gerry Granger: (none)Author Type: [...] for excessive bleeding, clots, bleeding disorders. Normal [facility] ANES Asha 10-23-2018 ANES POST HNO ID: [id number] thor: Alexx OronaoService: AnesthesiologyAuthor Type: PhysicianType: Anesthesia [...] 23, 2018 : 3:01 PM PAGER/CONTACT #: [facility] ANES PREOPon 10-23-2018 ANES PREOP HNO ID: [id number] thor: Alexx OronaoService: AnesthesiologyAuthor Type: PhysicianType: Anesthesia [...] otherwise documented in primary service progress notes: [facility] contains updated information obtained within 48 hours ofSurgery/Procedure.SIGNATUR E: Alexx Davis MD PATIENT NAME: Librado GuillenDATE: October 23, 2018 : 1:34 PM CSN: [id number] Normal [facility] HISTORY PHYSICALon 8 HISTORY PHYSICAL HNO ID: [id number] thor: Nancy Justin) SedlackoService: (none)Author Type: Physician AssistantType: HANDPFiled: 10/23/2018 1:48 PMNote Text:HISTORY AND PHYSICAL EXAMINATIONLibrado Smith Ofstzo5509[birth year]17/1945SERVICE DATE: 10/23/2018SERVICE TIME: 1:13 [facility]IAN: SONYA NairURGEON: Surgeon(s) and Role: [...] 23, 2018 : 1:13 PM PAGER/CONTACT #: [facility] PT EDon 10-23-2018 PT ED HNO ID: [id number] thor: Jaja (Rn) CRUZ Clintonervice: (none)Author Type: Registered NurseType: Patient EducationFiled: 10/23/2018 1:35 PMNote Text:ONGOING PATIENT EDUCATION TOPIC Reinforced: pain scalePatient Name: Librado GuillenMRN: [id number] [facility] To LearnMotivation To Learn: EagerInstruction Provided To: PatientLearning ResponsePatient/Family Response: Verbalizes understanding of: PAINMANAGEMENT-Effective strategies to manage pain in addition to painmedicationMethod of Instruction: Individual instructionFollow-Up Plan: Complete - No need for follow-upElectronically signed by: Jaja Clinton RN [facility] HOSPon 08-29-2018 HOSP Patient:Humza Guillen DMRN: Height:5' [...] entered within the past [address] [facility] CNOVon 08-15-2018 CNOV Office Visit (AGHWG1) ----LIBRADO GUILLEN ([id number]) 1945 [facility] Time Provider Department08/15/18 9:45 AM TONIO TERAN [...] for surgery.Follow-up and Disposition History RecordedEncounter Number: [id number] Status:Closed by TONIO TERAN MD on 08/15/18 [facility] OBSOLETEon 08-15-2018 OBSOLETE Procedure (AGSPHWG) -----LIBRADO GUILLEN ([id number]) 1945 MDate Time Provider Department08/15/18 9:00 AM [...] Further, nerves are often tested in a mmti-my-ozpfhtbhztoymy, as well as, additional extremities and are [...] name, , [facility] and [facility]being [facility] is aware of potential risks and benefits [...] by: Rashida Burrows Provider: TONIO TERAN JR [[id number]]Allergies As of Date: 08/15/2018(No Known Allergies)Date Reviewed: 08/15/2018Reviewed by: Bridget Naranjo - Fully AssessedReason for Visit: EMG [2011] Cmt: right upperPrimary Visit Diagnosis:Right upper limb pain [M79.601]Order(s):NEEDLE EMG EA EXTREMTY W/PARASPINL AREA COMPLETE [[id number]] Order #: [id number] MOTOR AND/SENS 5-6 NRV CNDJ PRECONF ELTRODE LIMB [[id number]] Order #: [id number] as of 08/15/2018 Sig: GABAPENTIN 300 MG [...] Further, nerves are often tested in a gzqp-qq-vqms comparison, as well as, additional extremities and [...] to improve.Follow-up and Disposition History RecordedEncounter Number: [id number] Status:Closed by BRIDGET NARANJO MD on 08/15/[address] [facility] PROCEDUREon 08-15-2018 Protein mass conc HNO ID: [id number] thor: Bridget Nicolas: (none)Author Type: PhysicianType: ProceduresFiled: [...] name, , allergies and procedurebeing performed at [place]Patient is aware of potential risks and benefits [...] NRV CNDJ PRECONF ELTRODE LIMBBridget Naranjo MD [facility] PROGRESSon 08-15-2018 Protein mass conc HNO ID: [id number] thor: Tonio Teran Jr.Service: (none)Author Type: PhysicianType: [...] words and phrases that may beinappropriate. [facility] Protein mass conc HNO ID: [id number] thor: Kali (Tech) Rip: (none)Author Type: TechnicianType: [...] for excessive bleeding, clots, bleeding disorders. [facility] CNOVon 07-08-2018 CNOV Office Visit (AGPOB3) ----LIBRADO GUILLEN ([id number]) 1945 MDate Time Provider Department07/08/18 8:00 AM TONIO TERAN JR AGPOB3 During your visit today, we recorded the following information about you: Respiration Weight Height 16/minute 117 kg 1.778 Lary Tang GoSquared 07/08/2018 8:21 AM SignedREVIEW OF SYSTEMS:GENERAL: Well developed, well nourished. No acute distressPAIN: Pain right forearmCARDIOVASCULAR: Negative for chest pain, leg swelling and palpations.MSK: Negative for joint pain, swelling, back pain, muscle pain.SKIN: Negative for lesions, rash, itching, metal sensitivityNEURO: Trauma 5-58-05JXZHRCJDW: Negative for Diabetes Type 1 and Type [...] TO PAIN MGT ANESTHESIA [20000301] Order #: [id number]: 1 meloxicam (MOBIC) 15 mg tabletTake 1 [...] nerve test.Follow-up and Disposition History RecordedEncounter Number: [id number] Status:Closed by TONIO TERAN MD on 07/08/18 [facility] PROGRESSon 07-08-2018 Protein mass conc HNO ID: [id number] thor: Tonio Teran Jr.Service: (none)Author Type: PhysicianType: [...] words and phrases that may beinappropriate. [facility] Protein mass conc HNO ID: [id number] thor: Clover Tang TECHService: (none)Author Type: (none)Type: Progress NotesFiled: 07/08/2018 8:21 AMNote Text:REVIEW OF SYSTEMS:GENERAL: Well developed, well nourished. No acute distressPAIN: Pain right forearmCARDIOVASCULAR: Negative for chest pain, leg swelling and palpations.MSK: Negative for joint pain, swelling, back pain, muscle pain.SKIN: Negative for lesions, rash, itching, metal sensitivityNEURO: Trauma 9-21-25FDAVASTPX: Negative for Diabetes Type 1 and Type 2HEMATOLOGY: Negative for excessive bleeding, clots, bleeding disorders. [facility] CNOVon 06-10-2018 CNOV Office Visit (AGPOB3) ----LIBRAD[facility] GUILLEN ([id number]) 1945 [facility] Department06/10/18 1:15 PM TONIO TERAN [...] may be inappropriate.Referring Provider: TONIO TERAN JR [[id number]]Allergies As of Date: 06/10/2018(No Known Allergies)Date Reviewed: 06/10/2018Reviewed by: Tonio Teran Jr. - Fully AssessedReason [...] to improve.Follow-up and Disposition History RecordedEncounter Number: [id number] Status:Closed by TONIO TERAN MD on 06/10/18 [facility] PROGRESSon 06-10-2018 Protein mass conc HNO ID: [id number] thor: Tonio Teran Jr.Service: (none)Author Type: PhysicianType: [...] words and phrases that may beinappropriate. [facility] OPERATIVE NOon 05-30-2018 OPERATIVE NO HNO ID: [id number] thor: Tonio Teran Jr.Service: Hand SurgeryAuthor Type: PhysicianType: Operative ReportFiled: 05/30/2018 10:47 AMNote Text:[facility] - Operative ReportSURGEON: JAVIER DouglasATIENT NAME: LIBRADO GUILLEN DMRN: [id number] CSN: [id number] OF SURGERY: 05/23/2018DATE OF : 1945 SEX/AGE: M/72PATIENT TYPE: A HOSP SVC: OROR LOCATION: [id number] OF SURGERY: 05/23/2018SURGEON: JAVIER DouglasREOPERATIVE DIAGNOSIS: Forearm laceration involving tendon, right.POSTOPERATIVE DIAGNOSIS: Forearm laceration.PROCEDURE PERFORMED: Exploration of penetrating wound, right forearm.PUBLIC RELATIONS OFFICER: Dominguez Brown MD, PGY-3.ANESTHESIA: MAC local.ESTIMATED BLOOD [...] MDOrthopedic SurgeryWDL:modlD: 05/30/2018 08:04:49T: 05/30/2018 08:20:15Job #: [id number] [facility] CNCOon 05-26-2018 CNCO Letter Text Tonio Teran MD [id number] [facility] [address], [facility] [id number] [address], [address] [facility] [id number] [facility], [address], [facility] [id number], [facility] [id number] [facility] [phone] ([id number] [email or web address].05/26/2018Librado Guillen1945To whom it may concern:This is to certify that Librado Guillen is under my care and underwent righthand surgery on 05/23/18. Please excuse his daughter, Coby Calle, fromwork as she is assisting him in his recovery.Please feel free to contact my office if you have any questions or concerns.Thank you for your assistance in this matter.Tonio Teran MD(Electronically signed to expedite care) [facility] ANES Asha 05-23-2018 ANES POST HNO ID: [id number] thor: Nick Aggarwal TalmageService: AnesthesiologyAuthor Type: PhysicianType: [...] 2018 : 10:01 PM PAGER/CONTACT #: [phone] [facility] ANES PREOPon 05-23-2018 ANES PREOP HNO ID: [id number] thor: Nick Quispeervice: AnesthesiologyAuthor Type: PhysicianType: Anesthesia [...] : 9:58 PM PAGER/CONTACT #: [phone] [facility] ANES PREOP HNO ID: [id number] thor: Nick Quispeervice: AnesthesiologyAuthor Type: PhysicianType: Anesthesia [...] May 23, 2018 : 4:17 PM CSN: [id number] [facility] BRIEF OP NOTon 05-23-2018 BRIEF OP NOT HNO ID: [id number] thor: Tonio Teran Jr.Service: Orthopaedic SurgeryAuthor Type: PhysicianType: Brief Op NoteFiled: 05/30/2018 8:01 AMNote Text:ORTHO BRIEF OPERATIVE REPORTPATIENT NAME: Librado GuillenMRN: [id number] ID: [id number]/Procedure Date: 05/23/2018Incision/Procedure Start Time: 6:52 PMIncision Close/Procedure End Time:Surgeon(s)/Proceduralis t(s) and Racetrack Steward(s):Surgeon(s) and Role: * Tonio Teran Jr. - [...] KolbATE: 05/23/18 : 7:19 PM PAGER/CONTACT #: [phone] [facility] NURSING PROGon 05-23-2018 Protein mass conc HNO ID: [id number] thor: Daniela (Pedro) CRUZ Welchervice: (none)Author Type: Registered NurseType: Nursing Progress NoteFiled: 05/23/2018 8:45 PMNote Text:Paged Dr. Brown multiple times to sign prescription for Tramadol. Liliane. Pt tired of waiting and decided he didn't want prescription.Prescription ripped up and discarded. [facility] HISTORY PHYSICALon 8 HISTORY PHYSICAL HNO ID: [id number] thor: Gabriela Salgado (Event Executive) MeltonService: (none)Author Type: Nurse PractitionerType: HANDPFiled: 05/22/2018 11:17 AMNote Text: HISTORY AND PHYSICAL EXAMINATIONSERVICE DATE: 05/22/2018SERVICE TIME: 10:32 AMPRINOR[facility] CARE [facility]IAN: Shannan Guillen MDThe patient has [...] 2018 : 10:32 AM PAGER/CONTACT #: [facility] CNOVon 05-21-2018 [facility] Office Visit (AGHWG1) ----MINDYLIBRADO D ([id number]) 1945 MDate Time Provider Department05/21/18 11:15 AM [...] Teran MD 05/21/2018 1:21 PM Signed05/21/2018Name:Librado Smith ClaudvilleDate of :1945History of Chief Complaint: Librado is [...] involvement, initial encounter [S51.811A, S56.921A]Order(s):APPLY FOREARM SPLINT,STATIC [[id number]] Order #: [id number] as of 05/21/2018 Sig: ALBUTEROL SULFATE 2.5 [...] for surgery.Follow-up and Disposition History RecordedEncounter Number: [id number] Status:Closed by TONIO TERAN MD on 05/21/18 [facility] HOSPon 05-21-2018 HOSP Patient:Humza Guillen DMRN: Height:5' [...] for the following basenames: K,HCTProgress Notes ([facility]):Moy Mercado 05/21/2018 1:21 PM SignedREVIEW OF SYSTEMS:GENERAL: [...] and phrases that may be inappropriate. [facility] PROGRESSon 05-21-2018 Protein mass conc HNO ID: [id number] thor: Tonio Teran Jr.Service: (none)Author Type: PhysicianType: Progress NotesFiled: 05/21/2018 1:21 PMNote Text:05/21/2018Name:Librado GuillenDate of :1945History of Chief Complaint: Librado is seeing me as a new patient today. Hecomplains of lacerations to both forearms. He was attacked by hisMediaspectrum's pit bull several days ago. He sustained [...] distal wound [facility]. [...] words and phrases that may beinappropriate. [facility] Protein mass conc HNO ID: [id number] thor: Abraham (Tech) PostService: (none)Author Type: TechnicianType: [...] for excessive bleeding, clots, bleeding disorders. [facility] Culture, urine Bacteria identified Cx Nom (U) Culture exhibits no growth. [facility] Work Phone: Vital Signs Date Time Vital Sign Value Performing Clinician Facility 05-31-2025 11:55-0400 Body temperature 97.9 [degF] Jaycob Yang MD Work Phone: [facility] 05-31-2025 11:55-0400 Diastolic blood pressure 77 mm[Hg] Jaycob Yang MD Work Phone: [facility] 05-31-2025 11:55-0400 Heart rate 74 /min Jaycob Yang MD Work Phone: [facility] 05-31-2025 11:55-0400 Respiratory rate 16 /min Jaycob Yang MD Work Phone: [facility] 05-31-2025 11:55-0400 SaO2% (BldA) [Mass fraction] 99 % Jaycob Yang MD Work Phone: [facility] 05-31-2025 11:55-0400 Systolic blood pressure 138 mm[Hg] Jaycob Yang MD Work Phone: [facility] 05-31-2025 07:25-0400 Body height 177.8 cm Jaycob Yang MD Work Phone: [phone] [address] 05-31-2025 07:25-0400 Body mass index (BMI) [Ratio] 35.3 kg/m2 Jaycob Yang MD Work Phone: [facility] 05-31-2025 07:25-0400 Body weight 111.76 kg Jaycob Yang MD Work Phone: [phone] [address] 05-29-2025 13:13-0400 Body temperature 98.1 [degF] Jaycob Yang MD Work Phone: [phone] [place] [address] 05-29-2025 13:13-0400 Diastolic blood pressure 78 mm[Hg] Jaycob Yang MD Work Phone: [facility] 05-29-2025 13:13-0400 Heart rate 81 /min Jaycob Yang MD Work Phone: [facility] 05-29-2025 13:13-0400 Respiratory rate 17 /min Jaycob Yang MD Work Phone: [facility] 05-29-2025 13:13-0400 SaO2% (BldA) [Mass fraction] 97 % Jaycob Yang MD Work Phone: [facility] 05-29-2025 13:13-0400 Systolic blood pressure 122 mm[Hg] Jaycob Yang MD Work Phone: [facility] 03-08-2025 18:45-0400 Body temperature 97 [degF] Jaycob Yang MD Work Phone: [facility] 03-08-2025 18:45-0400 Diastolic blood pressure 76 mm[Hg] Jaycob Yang MD Work Phone: [facility] 03-08-2025 18:45-0400 Heart rate 76 /min Jaycob Yang MD Work Phone: [facility] 03-08-2025 18:45-0400 Respiratory rate 16 /min Jaycob Yang MD Work Phone: [facility] 03-08-2025 18:45-0400 SaO2% (BldA) [Mass fraction] 98 % Jaycob Yang MD Work Phone: [facility] 03-08-2025 18:45-0400 Systolic blood pressure 132 mm[Hg] Jaycob aYng MD Work Phone: [facility] 03-08-2025 16:10-0400 Body height 177.8 cm Jaycob Yang MD Work Phone: [facility] 03-08-2025 16:10-0400 Body mass index (BMI) [Ratio] 35.3 kg/m2 Jaycob Yang MD Work Phone: [facility] 03-08-2025 16:10-0400 Body weight 111.6 kg Jaycob Yang MD Work Phone: [facility] 02-03-2025 14:31-0400 Body height 177.8 cm Jaycob Yang MD Work Phone: [facility] 02-03-2025 14:31-0400 Body mass index (BMI) [Ratio] 36.1 kg/m2 Jaycob Yang MD Work Phone: [facility] 02-03-2025 14:31-0400 Body temperature 98 [degF] Jaycob Yang MD Work Phone: [facility] 02-03-2025 14:31-0400 Body weight 114.3 kg Jaycob Yang MD Work Phone: [facility] 02-03-2025 14:31-0400 Diastolic blood pressure 72 mm[Hg] Jaycob Yang MD Work Phone: [facility] 02-03-2025 14:31-0400 Heart rate 74 /min Jaycob Yang MD Work Phone: [facility] 02-03-2025 14:31-0400 Respiratory rate 14 /min Jaycob Yang MD Work Phone: [facility] 02-03-2025 14:31-0400 SaO2% (BldA) [Mass fraction] 98 % Jaycob Yang MD Work Phone: [facility] 02-03-2025 14:31-0400 Systolic blood pressure 192 mm[Hg] Jaycob Yang MD Work Phone: [facility] 08-17-2024 11:07-0400 Body height 177.8 cm Malou Carsonir VETERINARY PHARMACOLOGIST.PORT CAPTAIN Work Phone: [facility] 08-17-2024 11:07-0400 Body mass index (BMI) [Ratio] 37.19 kg/m2 Malou Donovan VETERINARY PHARMACOLOGIST.PORT CAPTAIN Work Phone: [facility] 08-17-2024 11:07-0400 Body temperature 97.11 [degF] Malou Donovan VETERINARY PHARMACOLOGIST.PORT CAPTAIN Work Phone: [facility] 08-17-2024 11:07-0400 Body weight 117.57 kg Malou Donovan VETERINARY PHARMACOLOGIST.PORT CAPTAIN Work Phone: [facility] 08-17-2024 11:07-0400 Diastolic blood pressure 80 mm[Hg] Malou Donovan VETERINARY PHARMACOLOGIST.PORT CAPTAIN Work Phone: [facility] 08-17-2024 11:07-0400 Heart rate 84 /min Malou Donovan VETERINARY PHARMACOLOGIST.PORT CAPTAIN Work Phone: [facility] 08-17-2024 11:07-0400 SaO2% (BldA) [Mass fraction] 97 % Malou Dnoovan VETERINARY PHARMACOLOGIST.PORT CAPTAIN Work Phone: [facility] 08-17-2024 11:07-0400 Systolic blood pressure 122 mm[Hg] Malou Donovan VETERINARY PHARMACOLOGIST.PORT CAPTAIN Work Phone: [facility] 12-09-2023 16:36-0500 Diastolic blood pressure 76 mm[Hg] [facility] 12-09-2023 16:36-0500 Systolic blood pressure 140 mm[Hg] [facility] 12-09-2023 14:07-0500 Heart rate 80 /min [facility] 12-09-2023 14:07-0500 SaO2% (BldA) [Mass fraction] 98 % [facility] 12-09-2023 13:29-0500 Body height 178 cm [facility] 12-09-2023 13:29-0500 Body mass index (BMI) [Ratio] 35.3 kg/m2 [facility] 12-09-2023 13:29-0500 Body temperature 96.7 [degF] [facility] 12-09-2023 13:29-0500 Body weight 112.03 kg [facility] 12-09-2023 13:29-0500 Respiratory rate 22 /min [facility] 01-07-2023 15:42-0500 Diastolic blood pressure 69 mm[Hg] [facility] 01-07-2023 15:42-0500 Systolic blood pressure 147 mm[Hg] [facility] 01-07-2023 13:29-0500 Heart rate 76 /min [facility] 01-07-2023 13:29-0500 Respiratory rate 15 /min [facility] 01-07-2023 13:29-0500 SaO2% (BldA) [Mass fraction] 98 % [facility] 01-07-2023 12:30-0500 Body height 177.8 cm [facility] 01-07-2023 12:30-0500 Body mass index (BMI) [Ratio] 34.2 kg/m2 [facility] 01-07-2023 12:30-0500 Body temperature 97.5 [degF] [facility] 01-07-2023 12:30-0500 Body weight 108.4 kg [facility] 10-12-2022 21:45-0500 Diastolic blood pressure 71 mm[Hg] [facility] 10-12-2022 21:45-0500 Heart rate 70 /min [facility] 10-12-2022 21:45-0500 Respiratory rate 12 /min [facility] 10-12-2022 21:45-0500 SaO2% (BldA) [Mass fraction] 98 % [facility] 10-12-2022 21:45-0500 Systolic blood pressure 121 mm[Hg] [facility] 10-12-2022 18:42-0500 Body height 177.8 cm [facility] Work Phone: 10-12-2022 18:42-0500 Body mass index (BMI) [Ratio] 36.3 kg/m2 [facility] 10-12-2022 18:42-0500 Body temperature 97.1 [degF] [facility] 10-12-2022 18:42-0500 Body weight 114.89 kg [facility] 12-26-2021 12:02-0500 Body height 177.8 cm [facility] Work Phone: 12-26-2021 12:02-0500 Body mass index (BMI) [Ratio] 35.9 kg/m2 [facility] Work Phone: 12-26-2021 12:02-0500 Body temperature 96.8 [degF] [facility] Work Phone: 12-26-2021 12:02-0500 Body weight 113.39 kg [facility] Work Phone: 12-26-2021 12:02-0500 Diastolic blood pressure 72 mm[Hg] [facility] Work Phone: 12-26-2021 12:02-0500 Heart rate 99 /min [facility] Work Phone: 12-26-2021 12:02-0500 Respiratory rate 18 /min [facility] Work Phone: 12-26-2021 12:02-0500 SaO2% (BldA) [Mass fraction] 99 % [facility] Work Phone: 12-26-2021 12:02-0500 Systolic blood pressure 186 mm[Hg] [facility] Work Phone: 11-26-2021 12:37-0500 Diastolic blood pressure 75 mm[Hg] [facility] Work Phone: 11-26-2021 12:37-0500 Heart rate 74 /min [facility] Work Phone: 11-26-2021 12:37-0500 Respiratory rate 10 /min [facility] Work Phone: 11-26-2021 12:37-0500 SaO2% (BldA) [Mass fraction] 97 % [facility] Work Phone: 11-26-2021 12:37-0500 Systolic blood pressure 149 mm[Hg] [facility] Work Phone: 11-26-2021 08:50-0500 Body temperature 97.9 [degF] [facility] Work Phone: 11-26-2021 08:48-0500 Body mass index (BMI) [Ratio] 35.6 kg/m2 [facility] Work Phone: 11-26-2021 08:48-0500 Body weight 112.49 kg [facility] Work Phone: Encounters Encounter Date Encounter Type Care Provider Facility Start: 06-08-2025 Emergency department patient visit Barrington Sanchez Facility:[facility] Start: 06-04-2025 ambulatory Jaycob Yang Facility:[facility] Start: 05-31-2025 End: 05-31-2025 Emergency department patient visit Jaycob Yang MD Work Phone: -Emergency Department Work Phone: Start: 05-29-2025 End: 05-29-2025 Patient encounter procedure Lashawn Castillo SENIOR SQL DEVELOPERJeanC [facility] Work Phone: Start: 05-29-2025 End: 05-29-2025 ambulatory Jaycob Yang MD Work Phone: [facility] Start: 05-27-2025 End: 05-27-2025 ambulatory Jaycob Yang MD Work Phone: -Laboratory [facility] Start: 05-27-2025 End: 05-27-[address] Jaycob Yang MD -Laboratory [facility] Start: 05-27-2025 End: 05-27-2025 ambulatory Jaycob Yang Facility:[facility] Start: 05-19-2025 End: 05-19-2025 ambulatory Jaycob Yang MD Work Phone: -Laboratory Specimen Start: 05-19-2025 End: 05-19-2025 Patient encounter procedure Barrington MARIA -Laboratory Specimen Work Phone: Start: 05-19-2025 End: 05-19-2025 ambulatory Barrington Holguin Facility:[facility] Start: 03-08-2025 Non-patient / Non-visit Geovani Cristobal nd, DO [facility] Start: 03-08-2025 End: 03-08-2025 Admission to same day surgery center Geovani Ramirez DO -[employer] [facility] Work Phone: Start: 03-08-2025 End: 03-08-2025 ambulatory Jaycob Yang MD Work Phone: [facility] Work Phone: Start: 02-03-2025 End: 02-03-2025 Emergency department patient visit GREG CADENA DO Facility:[facility] Start: 11-03-2024 End: 11-03-[address] 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); Screen for colon cancer; Crohn's disease of small and large intestines with complication (HCC) Start: 07-02-2024 ambulatory [facility] Facility:[facility] Start: 06-30-2024 End: 06-30-2024 ambulatory [facility] Facility:[facility] Start: 12-09-2023 End: 12-09-2023 Emergency department patient visit [facility]Emergency Department Work Phone: Start: 04-30-2023 Non-patient / Non-visit DO Nestor Corea Work Phone: [facility] Start: 04-30-2023 Patient encounter procedure DO Marlene Corea Work Phone: [facility] Start: 04-25-2023 End: 04-25-2023 ambulatory DO Marlene Corea Work Phone: [facility] Work Phone: Start: 04-25-2023 End: 04-25-2023 Patient encounter procedure DO Marlene Corea Work Phone: [facility] Start: 01-07-2023 End: 01-07-2023 Emergency department patient visit [facility]Emergency [facility] Start: 10-12-2022 End: 10-12-2022 Emergency department patient visit [facility]Emergency Department Start: 08-08-2022 End: 08-08-2022 ambulatory [facility] Work Phone: Start: 08-08-2022 End: 08-08-2022 Patient encounter procedure [facility]-Laboratory, Specimen Start: 03-27-2022 End: 03-27-2022 ambulatory DOMINIQUE Slade [facility] Start: 03-16-2022 End: 03-16-2022 ambulatory DOMINIQUE Slade JAV[facility] Start: 02-21-2022 End: 02-21-2022 ambulatory DOMINIQUE Slade [facility] Start: 02-16-2022 End: 02-16-2022 Patient encounter procedure [facility], [facility] Start: 01-31-2022 End: 01-31-2022 Patient encounter procedure [facility]-Laboratory, Lupe Cobian Start: 12-26-2021 End: 12-26-2021 Emergency department patient visit [facility]Emergency [facility] Start: 11-26-2021 End: 11-26-2021 Emergency department patient visit [facility]Emergency Department Start: 11-05-2018 End: 11-05-2018 Patient encounter procedure TONIO TERAN JR [facility] Start: 10-23-2018 End: 10-23-2018 Evaluation and management of inpatient TONIO TERAN Facility:[facility] Start: 10-23-2018 End: 10-23-2018 Patient encounter procedure TONIO TERAN JR [facility] Start: 08-15-2018 End: 08-15-2018 Patient encounter procedure TONIO TERAN JR [facility] Start: 07-08-2018 End: 07-08-2018 Patient encounter procedure TONIO TERAN JR [facility] Start: 06-10-2018 End: 06-10-2018 Patient encounter procedure TONIO TERAN JR [facility] Start: 06-06-2018 Patient encounter procedure TONIO TERAN Facility:[facility] Start: 05-23-2018 End: 05-23-2018 Evaluation and management of inpatient TONIO TERAN Facility:[facility] Start: 05-23-2018 End: 05-23-2018 Patient encounter procedure TONIO TERAN JR [facility] Start: 05-22-2018 End: 05-22-2018 Patient encounter procedure TONIO TERAN JR [facility] Start: 05-21-2018 End: 05-21-2018 Patient encounter procedure TONIO ANIKA TERAN JR [facility] Procedures Date Procedure Procedure Detail Performing [...] nerve S/P carpal tunnel release Malou Villagomez APRN.PORT CAPTAIN Work Phone: Urine culture Plan of Treatment Date Care Activity Detail Author Start: 01-24-2032 Urine microalbumin profile DTaP,Tdap,Td Vaccine (3 - Td or Tdap) [facility] Start: 05-31-2025 [facility] Start: 03-08-2025 Hospital admission, emergency, from emergency room, medical nature [facility] Start: 03-08-2025 Egd flexible foreign body removal EGD REMOVE FOREIGN BODY [facility] Start: 03-08-2025 [facility] Start: 07-26-2024 Covid-19 Vaccine () Covid-19 Vaccine () [facility] Start: 07-26-2024 Influenza vaccination Influenza Vacc ine (#1) [facility] Start: 05-04-2024 Diabetes Screening Diabetes Screenin g [facility] Start: 12-10-2023 [facility] Start: 12-09-2023 [facility] Start: 12-09-2023 [facility] Start: 11-25-2023 Advance Directive Discussion Advance Directive Discussion [facility] Start: 10-12-2022 [facility] Start: 2022 RSV Vaccine (1 - 1-d ose 75+ series) RSV Vaccine (1 - 1-dose 75+ series) [facility] Start: 12-26-2021 Smpl repair scalp/neck/ax/genit/trunk 2.6-7.5cm RPR S/N/AX/GEN/TRNK2.6-7.5 CM [facility] Work Phone: Start: 1963 Annual PCP Team Coding Specialist Home Health janneth Disease Visit Annual PCP Team Chronic Disease Visit [facility] Start: 1965 Depression Screening Depression Scre ening [facility] Start: 1965 Hepatitis C screening Hepatitis C Sc [facility] Patient Education [facility] Work Phone: Patient referral [facility] Work Phone: Zinc [Mass/volume] i n Serum or Plasma [facility] Immunizations Immunization Date Immunization Notes Care Provider Fa alondra 09-11-2023 influenza virus vacc ine, unspecified formulation Malou Villagomez VETERINARY PHARMACOLOGIST.PORT CAPTAIN Work Phone: [facility] 12-26-2021 tetanus toxoid, redu joanne diphtheria toxoid, and acellular pertussis vaccine, adsorbed [facility] 02-01-2021 Covid (Pfizer) [facility] 01-14-2021 Covid (Pfizer) [facility] 09-03-2015 influenza, high dose seasonal, preservative-free Malou Villagomez VETERINARY PHARMACOLOGIST.PORT CAPTAIN Work Phone: [facility] 11-25-2014 pneumococcal polysaccharide vaccine, 23 valent Malou Villagomez VETERINARY PHARMACOLOGIST.PORT CAPTAIN Work Phone: [facility] 08-25-2013 Pneumococcal Vaccine [facility] Work Phone: 08-25-2013 pneumococcal vaccine , unspecified formulation [facility] Payers Date Payer Category Payer Self-pay [id number] 2025 Private Health Insurance [id number] 2025 Unknown [id number] 2024 Private Health Insurance [id number] 2024 Self-pay [id number] 2019 Private Health Insurance [facility] [employer] [id number] 2019-Present [phone] [address] [place] [address] PPO [id number] 2019 Unknown [id number] 1945 Unknown [id number] 2.840.1.928210.3.579. 2.278 1947 Unknown [id number] 2.840.1.412916.3.579. 2.278 1945 Unknown [id number] 2.16.840.1.131771.3.579. 2.278 1947 Unknown [id number] 2.16.840.1.813671.3.579. 2.278 1947 Unknown [id number] 2.16.840.1.293912.3.579. 2.278 1947 Unknown [id number] 2.16.840.1.481441.3.579. 2.278 1947 Unknown [id number] 2.16.840.1.486205.3.579. 2.278 1947 Unknown [id number] 2.16.840.1.699632.3.579. 2.278 1947 Unknown [id number] 2.16.840.1.259313.3.579. 2.278 1947 Unknown [id number] 2.16.840.1.431341.3.579. 2.278 1947 Unknown [id number] 2.16.840.1.658998.3.579. 2.651 1947 Unknown [id number] 2.16.840.1.436753.3.579. 2.651 1947 Unknown [id number] 2.16.840.1.311409.3.579. 2.651 1947 Unknown [id number] 2.840.1.252368.3.579. 2.627 Unknown [id number] Unknown [id number] 2.840.1.770550.3.579. 2.462 Unknown [id number] 2.16840.1.853987.3.579. 2.462 Unknown [id number] 2.16.840.1.207852.3.579. 2.462 Unknown [id number] 2.16.840.1.025631.3.579. 2.462 Unknown [id number] 2.16840.1.781952.3.579. 2.462 Unknown [id number] 2.16840.1.330827.3.579. 2.462 Unknown [id number] 2.16.840.1.769868.3.579. 2.462 Unknown [id number] 2.16.840.1.465264.3.579. 2.462 Unknown [id number] 2.16.840.1.562955.3.579. 2.462 Unknown [id number] 2.16.840.1.190635.3.579. 2.462 Unknown [id number] 2.16.840.1.643548.3.579. 2.462 Unknown [id number] 2.16.840.1.340937.3.579. 2.462 Unknown [id number] 2.16.840.1.800656.3.579. 2.462 Social History Date Type Detail Facility Start: 12-26-2021 End: 12-09-2023 Tobacco smoking status IDIS Unknown if ever smoked [facility] Start: 12-25-2019 None [facility] Start: 12-25-2019 Alone [facility] Start: 1945 Sex Assigned At Male [facility] Start: 08-17-2024 End: 05-31-2025 Tobacco smoking status IDIS Ex-smoker [facility] Start: 12-06-1978 End: 12-06-1993 History of tobacco use Current smoker [facility] Start: 12-06-1978 End: 12-06-1993 History of tobacco use Cigarette Smoker [facility] Start: 08-17-2024 Cigarettes smoked current (pack per day) - Reported 0.5 [facility] Start: 08-17-2024 Tobacco use and exposure Smokeless tobacco non-user [facility] Start: 08-17-2024 Alcoholic beverage intake Current drinker of alcohol (finding) [facility] Start: 08-17-2024 Tobacco use panel [facility] National Score (1-10 0), lower number is lower risk 71 [facility] Start: 1945 Sex assigned at Not on file C [facility] Start: 02-03-2025 End: 03-08-2025 Sex Male (finding) [facility] Goals Date Patient Goal Desired Activity /State Mental Status Date Assessment Result Facility 05-31-2025 Cognitive function Level Of Cons ciousness Awake;Alert;Appropriate;Follow s Commands [facility] Work Phone: 03-08-2025 Cognitive function Voice/Name [facility] Work Phone: 12-09-2023 Cognitive function Level Of Cons ciousness Awake;Alert;Appropriate;Follow s Commands [facility] Work Phone: 01-07-2023 Cognitive function Voice/Name [facility] Work Phone: 10-12-2022 Cognitive function Voice/Name [facility] Work Phone: 11-26-2021 Cognitive function Voice/Name [facility] Work Phone: Clinical Notes 08-17-2024 to 05-31-2025 Note Date & Type Note Facility 05-31-2025 Discharge summary [facility] 03-08-2025 Consult note Note Date/Time March 08, 2025 4:37pm [facility] Medical Records Department [address] [place] [address] Pre-Anesthesia Evaluation 03/08/25 1637 MR#: [id number] Acct: [id number] Name: LIBRADO GUILLEN Rep #:[id number] : 1945 79 From: Barry Kline MD PCP: Dr. Jaycob Yang MD Status:REG SD C Y Race: C Location: [place] [address] ASA Classification* ASA Classification ASA Classification: 2 [...] FB Esophagous Anesthesia History Anesthesia History - resident buyer: Anesthesia History - resident buyer Hx Hospitalization No 12/25/19 17:02 Any Problems [...] take am of surgery PONV PONV - resident buyer: PONV - resident buyer Female HX of Motion Sickness HX of N/V After Surgery Non-Smoker Duration of Surgery greater than 60 minutes Number of Risk Factors PONV Score Height & Weight Height & Weight: Anesthesia: Height & Weight Height 5 ft 10 in 03/08/25 16:10 Weight: 111.6 kg 03/08/25 16:10 Body Mass Index (BMI) 35.3 03/08/25 16:10 Respiratory Assessment Respiratory Assessment - resident buyer: Respiratory Tract Infection Hx - resident buyer Hx Respiratory Tract Infection No 03/08/25 16:10 STOP Sleep Apnea STOP Sleep Apnea - resident buyer: STOP Sleep Apnea - resident buyer Hx Hypertension No 04/19/21 22:38 Hx Sleep [...] Tobacco Use History Tobacco Use History - resident buyer: Tobacco Use History - resident buyer Tobacco Use Smoking Status Former smoker 03/08/25 14:34 Hx Tobacco Use No 12/25/19 17:02 Years Smoking Packs Smoked per Day Smoking Cessation Date was No - quit smoking greater 03/08/25 14:34 within the last 15 years than 15 years ago Hx Smoking Cessation Date 04/18/94 03/08/25 14:34 Hx Smoking Cessation No 03/08/25 14:34 Counseling Hematologic Medial History Hematologic Hx - resident buyer: 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 Specify any problems Hx of Preganancy in last 3 Months Nurse Filling Out Transfusion & Questions: Date: Time: Patient unable to answer at this time (ie. confused, unrespo /Reproduction History /Reproductive History - resident buyer: /Reproductive Hx- resident buyer Hx Now No 03/08/25 16:10 Gestational Age [...] 2.5 mg/3 mL 1 puff inhalation Q4H MI N PRN Sob 11/30/19 Unknown History (0.083 [...] no additional complaints, except as documented. 03/08/25 5227 <Electronically signed by Barry Kline MD > Date _ Barry Garciaignjuan alberto Signature: Date CC: ~ Signed [facility] Work Phone: 1(947) 957-693704-14-2025 Evaluation note* Diagnosis Onset Date Resolution Status Admit Date Esophageal obstruction due t o food impaction acute March 08, 2025 4:31pm [facility] Work Phone: 1(489) 644-337004-14-2025 Evaluation note* Diagnosis Onset Date Resolution Status Admit Date Esophageal obstruction due t o food impaction acute March 08, 2025 4:31pm Oral thrush acute May 29 1:02pm [facility] Work Phone: 1(928) 934-400204-14-2025 Consult note [facility] Medical Records Department [address] [place] [address] Anesthesia Postop Eval I 03/08/25 1829 MR#: [id number] Acct: [id number] Name: LIBRADO GUILLEN Rep #:[id number] : 1945 79 From: Barry Kline MD PCP: Dr. Jaycob Yang MD Status:REG SD C Y Race: C Location: [place] [address] Anesthesia: Postop Eval I Current Vital Signs [...] Barry Zhou Signature: Date CC: ~ Signed [facility]04-14-2025 Consult note [facility] Medical Records Department [address] [place] [address] Anesthesia Postop Eval II 03/08/251829 MR#: [id number] Acct: [id number] Name: LIBRADO GUILLEN Rep #:[id number] : 1945 79 From: Barry Kline MD PCP: Dr. Jaycob Yang MD Status:REG SD C Y Race: C Location: [place] [address] Anesthesia Postop Eval I Sum Postop Eval [...] MD Cosigner Signature: Date CC: ~ Signed [facility]04-14-2025 Procedure note [facility] Medical Records Department [address] [place] [address] EGD Report MR#: [id number] Acct: [id number] Name: LIBRADO GUILLEN Rep #:[id number] : 1945 79 From: Geovani Ramirez DO [...] present medications. Procedure Code(s): --- Professional --- 40219, Esophagogastroduodenoscopy, flexible, transoral; with removal of foreign body(s) CPT copyright 2021 [employer]. All rights reserved. The codes documented in this report are preliminary and upon mainspring former brace end review may be revised to meet current compliance requirements. Geovani Ramirez DO 03/08/2025 6:24:36 PM This report has been signed electronically. Number of Addenda: 0 Note Initiated On: 03/08/2025 5:48 PM 03/08/25 1824 Date _ Geovani Krishnaignjuan alberto Signature: Date (if indicated) CC: Dr. Jaycob Yang MD; Geovani Ramirez DO ~ Date Dictated: 03/08/25 1748 Date Transcribed: Hat Block Bench Hand: RF Signed [facility]04-14-2025 Procedure note [facility] Medical Records Department [address] [place] [address] [place] [address] Operative Report - CC Letter MR#: [id number] Acct: [id number] Name: LIBRADO GUILLEN Rep #:[id number] : 1945 79 From: Geovani Ramirez DO [...] ~ Date Dictated: 03/08/25 1748 Date Transcribed: Hat Block Bench Hand: RF Signed [facility]04-14-2025 History and physical note [facility] Medical Records Department [address] [place] [address] History & Physical Exam 03/08/25 1726 MR#: [id number] Acct: [id number] Name: LIBRADO GUILLEN Rep #:[id number] : 1945 79 From: Geovani Ramirez DO PCP: Dr. Jaycob Yang MD Status:REG SD C Location: [facility]-3 HPI - General General Date of [...] it up but did not remove it. [facility] Medical History Zenkers diverticulum BPH (benign prostatic [...] 2.5 mg/3 mL 1 puff inhalation Q4H MI N PRN Sob 11/30/19 Unknown History (0.083 [...] Jaycob Yang MD; Geovani Ramirez DO~ Signed [facility]04-14-2025 [facility] Medical Records Department [address] [place] [address] History Physical Exam 03/08/25 172 MR#: [id number] Acct: [id number] Name: LIBRADO GUILLEN Rep #: [id number] : 1945 79 From: Geovani Ramirez DO PCP: Dr. Jaycob Yang MD Status:[facility] Location: [facility] AC-TBA-3 HPI - General General Date of [...] it up but did not remove it. [facility] Medical History Zenkers diverticulum BPH (benign prostatic [...] He was explained al (more content not included)...[facility]04-14-2025 Consult note [facility] Medical Records Department [address] [place] [address] Pre-Anesthesia Evaluation 03/08/25 1637 MR#: [id number] Acct: [id number] Name: LIBRADO GUILLEN Rep #:[id number] : 1945 79 From: Barry Kline MD PCP: Dr. Jaycob Yang MD Status:REG SD C Y Race: C Location: [place] [address] ASA Classification* ASA Classification ASA Classification: 2 [...] FB Esophagous Anesthesia History Anesthesia History - resident buyer: Anesthesia History - resident buyer Hx Hospitalization No 12/25/19 17:02 Any Problems [...] take am of surgery PONV PONV - resident buyer: PONV - resident buyer Female HX of Motion Sickness HX of N/V After Surgery Non-Smoker Duration of Surgery greater than 60 minutes Number of Risk Factors PONV Score Height & Weight Height & Weight: Anesthesia: Height & Weight Height 5 ft 10 in 03/08/25 16:10 Weight: 111.6 kg 03/08/25 16:10 Body Mass Index (BMI) 35.3 03/08/25 16:10 Respiratory Assessment Respiratory Assessment - resident buyer: Respiratory Tract Infection Hx - resident buyer Hx Respiratory Tract Infection No 03/08/25 16:10 STOP Sleep Apnea STOP Sleep Apnea - resident buyer: STOP Sleep Apnea - resident buyer Hx Hypertension No 04/19/21 22:38 Hx Sleep [...] Tobacco Use History Tobacco Use History - resident buyer: Tobacco Use History - resident buyer Tobacco Use Smoking Status Former smoker 03/08/25 14:34 Hx Tobacco Use No 12/25/19 17:02 Years Smoking Packs Smoked per Day Smoking Cessation Date was No - quit smoking greater 03/08/25 14:34 within the last 15 years than 15 years ago Hx Smoking Cessation Date 04/18/94 03/08/25 14:34 Hx Smoking Cessation No 03/08/25 14:34 Counseling Hematologic Medial History Hematologic Hx - resident buyer: 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 Specify any problems Hx of Preganancy in last 3 Months Nurse Filling Out Transfusion & Questions: Date: Time: Patient unable to answer at this time (ie. confused, unrespo /Reproduction History /Reproductive History - resident buyer: /Reproductive Hx- resident buyer Hx Now No 03/08/25 16:10 Gestational Age (in weeks): EDC: Hx Hx Para Hx Section SAB No 03/08/25 16:10 [facility] Medical History Zenkers diverticulum BPH (benign prostatic [...] 2.5 mg/3 mL 1 puff inhalation Q4H MI N PRN Sob 11/30/19 Unknown History (0.083 [...] MD Cosigner Signature: Date CC: ~ Signed [facility]10-24-2024 Consult note Author Barry masood [facility] Note Date/Time March 08, 2025 6:3 0pm [facility] Medical Records Department [address] [place] [address] Anesthesia Postop Eval II 03/08/25 1830 MR#: [id number] Acct: [id number] Name: MINDYLIBRADO D Rep #:[id number] : 1945 79 From: Barry Kline MD PCP: Dr. Jaycob Yang MD Status:REG SD C Y Race: C [facility] Anesthesia Postop Eval I Sum Postop Eval [...] MD Cosigner Signature: Date CC: ~ Signed [facility] Work Phone: 1(315) 442-749109-23-2024 History of Present illness Narrative* Malou Villagomez APRN.PORT CAPTAIN - 08/17/2024 11:00 AM EDT HISTORY AND PHYSICAL Librado Guillen : 1945 REFERRING [facility]YSIC[facility] CHIEF COMPLAINT: Patient presents with: Consult: EGD and colonoscopy consultation. HPI: Librado is a 78 year old male referred for endoscopy. iLbrado notes continued reflux symptoms despite PPI, hx [...] ulcers/ peptic ulcer disease. Jonas presented to [facility] ED for CP. Cardiac work up [...] DVT of lower extremity (deep venous thrombosis) ([facility]) 07/11/2020 LLE Esophageal reflux Gastroesophageal [...] can fax a consult for GI to [facility]. Jonas will call me if he [...] edited and updated as necessary. Malou Villagomez APRN.PORT CAPTAIN documented in [facility]24 NoteHNO ID: [id number] Author: MALOU VILLAGOMEZ APRN.SHAR Service: ? Author Type: Nurse Practitioner Type: Progress Notes Filed: 08/17/2024 11:42 Note Text: HISTORY AND PHYSICAL Librado Guillen : 1945 REFERRING [facility]YSIC[facility] CHIEF COMPLAINT: Patient presents with: Consult: EGD [...] ulcers/ peptic ulcer disease. Jonas presented to [facility] ED for CP. Cardiac work up was negative. Had stress test with completed 06/30/24 no evidence of ischemia. EF is 69% Jonas follows with Dr. Arriola for asthma. Denies recent exacerbations, rescue inhaler, wheezing, SOB, recent hospitalizations Denies family history of colon issues. Librado has undergone prior endoscopy. EGD 09/2022 @ [facility] COLONOSCOPY 07/2021 @ [facility] - [...] DVT of lower extremity (deep venous thrombosis) ([facility]) 07/11/2020 LLE Esophageal reflux Gastroesophageal reflux IBS (irritable bowel syndrome) Meningioma (HCC) right frontal lobe FABIANO (obstructive sleep apnea) compliant with CPAP at night Osteopenia Zenker's diverticulum PAST SURGICAL HISTORY Procedure Laterality Date COLONOSCOPY approx 06/2021 EGD W/O [facility] SPEC VARICIES INJ 06/2021 PAST SURGICAL HISTORY OF 1973 gallbladder removed PAST SURGICAL HISTORY OF 1974 right rib removed; TOS PAST (more content not included)...[facility] note Author Barry Kline [facility] Note Date/Time March 08, 2025 6:3 0pm [facility] Medical Records Department [address] [place] [address] Anesthesia Postop Eval I 03/08/25 1829 MR#: [id number] Acct: [id number] Name: LIBRADO GUILLEN Rep #:[id number] : 1945 79 From: Barry Kline MD PCP: Dr. Jaycob Yang MD Status:REG SD C Y Race: C Location: [place] [address] Anesthesia: Postop Eval I Current Vital Signs [...] MD Cosign Signature: Date CC: ~ Signed [facility] Work Phone: Discharge summary Author Lewis [facility] Note Date/Time May 31, 2025 10:59 am [facility] Medical Records Department [address] [facility] [place] [address] Emergency Department Summary 05/31/25 MR#: [id number] Acct: [id number] Name: LIBRADO GUILLEN Rep #:[id number] : 1945 79 From: Lewis Turpin DO [...] days his pain is severe to the [facility] the emergency department and he states that [...] thereforehe came here for further evaluation management [facility] Medical History Zenkers diverticulum BPH (benign prostatic [...] follow commands knew that she was at [facility] years 2024 Skin: Warm, dry, tact no [...] myself. Advised him to follow-up with his population health manager as well as primary care physician return [...] % (Auto) 60.4 Lymph % (Auto) 28.0 [place] % (Auto) 9.6 Eos % (Auto) 0.0 [...] Clarity Clear Urine pH 6.0 Ur Specific [place] 1.020 Urine Protein 30 H Urine Glucose [...] return with any other concerns. Print Language: Croatian Disposition Disposition: Home, Self Care What to do if you have Problems For any increased pain, shortness of breath, bleeding, nausea or vomiting, chestpain, or any unexpected problems, contact your Primary Care Provider. Call [facility] ([phone]) or report to the closest Emergency Room. Call 911 if necessary. 05/31/25 1059 <Electronically signed by Lewis Turpin DO> Cosigner Signature (if applicable): CC: Dr. 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 Jaycob Yang MD Status:REG SD C Location: [place] [address] HPI - General General Date of Admission: [...] it up but did not remove it. [facility] Medical History Zenkers diverticulum BPH (benign prostatic [...] 2.5 mg/3 mL 1 puff inhalation Q4H MI N PRN Sob 11/30/19 Unknown History (0.083 [...] Jaycob Yang MD; Geovani Ramirez DO~ Signed [facility] Work Phone: Hospital Discharge instructions Additional Instructions Please return for any worsening symptoms. You had a negative chest pain work-up today. [facility] Work Phone: Hospital Discharge instructions Additional Instructions Please follow-up for an outpatient stress test. In the meantime if symptoms worsen return to the ER for reevaluation.[facility] Work Phone: Hospital Discharge instructionsAdditional Instructions Take the new prescription of sent to your pharmacy as prescribed the dose will be increased by 100 mg you need to take the entirety of this medication do not stop taking it if you feel that this is not working. Use the nystatin as well. Follow-up your doctor in outpatient setting return with any other concerns.[facility] Work Phone: Reason for referral (narrative)No reason for referral information availableWKeenan [facility] Work Phone: Summary Purpose Family History No Family History Records Found Relationship Condition Age at Onset Recorded Date/T tesfaye mother Congestive heart failure Unknown father Malignant neoplasm Unknown Advance Directives No Advanced Directives Records Found Advance Directive Response Recorded Date/ Time Name of Medical Power of Cosmetic Maker ? November 26, 2021 10:51am Advance Directives Yes April 21 7:08pm Living Will No December 26 2:55pm Power of Cosmetic Maker No December 26, 2021 2:55pm Advance Directive Response Recorded Date/ Time Advance Directives Yes April 21 4 7:08pm Living Will Yes March 29, 2022 1: 48pm Power of Cosmetic Maker Yes March 29, 2022 1:48pm Advance Directive Response Recorded Date/ Time Name of Medical Power of Cosmetic Maker ? October 12, 2022 6:51pm Advance Directives Yes April 21 4 6:08pm Living Will Yes October 12, 2 022 6:51pm Power of Cosmetic Maker Yes October 12, 2022 6:51pm Advance Directive Response Recorded Date/ Time Name of Medical Power of Cosmetic Maker ? October 12, 2022 6:51pm Advance Directives Yes April 21 6:08pm Living Will No January 07, 2 023 1:30pm Power of Cosmetic Maker No January 07, 2023 1:30pm Advance Directive Response Recorded Date/ Time Advance Directives Yes April 21 4 7:08pm Living Will No January 07, 2 023 2:30pm Power of Cosmetic Maker No January 07, 2023 2:30pm Advance Directive Response Recorded Date/ Time Advance Directives Yes April 21 4 6:08pm Living Will No December 09 4:36pm Power of Cosmetic Maker No December 09, 2023 4:36pm Advance Directive Response Recorded Date/ Time Advance Directives Yes April 21 7:08pm Advance Directive Response Recorded Date/ Time Living Will No March 08, 2025 2:34pm Do you have a Healthcare Power of Cosmetic Maker? No March 08, 2025 2:34pm Advance Directives Yes April 21 7:08pm Advance Directive Response Recorded Date/ Time Living Will No March 08, 2025 2:34pm Do you have a Healthcare Power of Cosmetic Maker? No March 08, 2025 2:34pm Do you have a Healthcare Power of Cosmetic Maker? No May 31, 2025 7:25am Advance Directives Yes April 21 7:08pm Procedure Findings Note HNO ID: [id number]: Donald Teran Jr.Service: Hand SurgeryAuthor Type: PhysicianType: Operative ReportFiled: 10/23/2018 2:09 PMNote Text:OPERATIVE NOTESURGERY DATE: 10/23/2018Incision/Procedure Start Time: 1353Incision Close/Procedure End Time: 1405Surgeon(s)/Proceduralist(s) and Racetrack Steward(s):Robin/ Sahntel PGY-2Procedures:Right Carpal Tunnel Release, CPT 54304Gpalaxccrr: MAC and LocalFindings: See belowEstimated Blood Loss: Minimal mlsSpecimens: NoneComplications: NonePreop Diagnosis: Right Carpal Tunnel SyndromePostop Diagnosis: SameCLINICAL SCENARIO: This is a 73 year oldgai-asvi-hup male, who presented [facility] office with signs [...] section and content) DATE CREATED AUTHOR 11/17/2018 [facility] DATE CREATED AUTHOR AUTHOR'S ORGANIZ ATION 11/17/2018 [facility] DATE CREATED AUTHOR AUTHOR'S ORGANIZ ATION 07/16/2020 [facility] ([place]) DATE CREATED AUTHOR AUTHOR'S ORGANIZ ATION 12/26/2021 [facility] DATE CREATED AUTHOR AUTHOR'S ORGANIZ ATION 03/28/[address] [facility] DATE CREATED AUTHOR AUTHOR'S ORGANIZ ATION 12/16/2024 [facility] DATE CREATED AUTHOR AUTHOR'S ORGANIZ ATION 02/13/2025 [facility] DATE CREATED AUTHOR AUTHOR'S ORGANIZ ATION 06/08/2025 [facility] Goals (unrecognized section and content) Goals may [...] Dr. Rudi Best , Emergency Provider Active Hands And Dial Inspector Relationship Specialty Start Date End Date Jaycob Yang MD [address] [place] [address] PCP - General Internal Medicine 08/17/24 Team [...] this informatio n is protected by the [facility] Confidentiality of Alcohol and Drug Abuse Patient Records regulations: The Federal rules restrict any use of the information to criminally investigate or prosecute any alcohol or drug abuse patient.[facility] Reason for Visit (unrecogniz ed section and content) Reason Comments Consult EGD and colonoscopy consultation. Specialty Diagnoses / Procedures Referred By Contac t Referred To Contact General Surgery / GENERAL SURGERY Diagnoses consult for colonoscopy and EGD Procedures [facility] Medical Alexx Link MD [address] [place] [address] Referral ID Status Reason Start Date Expiration Date Visits Re quested Visits Authorized [id number] Closed 08/11/2024 10/10/2024 1 1 FOR RECORDS [...] BE BASED ON THE PRIMARY CLINICAL RECORDS. [employer] [facility] provides no warranty or guarantee of the accuracy or completeness of information in this document.
[2025-06-08 22:42] LABS: CPK Total, Creatine Kinase 41 U/L (24-195)
[2025-06-08 22:58] VITALS: BMI 35.4
[2025-06-08 22:58] LABS: Magnesium 2.2 mg/dL (1.5-2.2)
[2025-06-08 23:00] VITALS: BP 105/61; PULSE 78; RESP 16; TEMP 36.7; O2SAT 98
[2025-06-08] MEDS: 0.9% Normal Saline (1000mL) 1,000 ML 70 ML IV (23:45)
[2025-06-09] VITALS (8 sets, daily range): BP systolic 109–118; BP diastolic 62–71; PULSE 58–80; RESP 14–20; TEMP 36.2–36.5; O2SAT 97–100; BMI 35.2
[2025-06-09 00:36] LABS: Vitamin B12 515 pg/mL (180-914)
[2025-06-09 04:33] LABS: Hematocrit 35.8 % (40-54); Hemoglobin 12.0 g/dL (13.0-16.5); Immature Granulocytes Count 0.080 X10^3/uL (0.0-0.0); Mean Corp Hgb Conc 33.5 g/dL (32-36); Mean Corpuscular Volume 94.2 fL (80-94); Mean Platelet Vol. 9.3 fl (6.2-12.0); NRBC Flagged by Analyzer 0 % (0-5); Platelet Count 173 K/mm3 (150-450); RBC Distribution Width CV 13.5 % (11.6-14.6); RBC Distribution Width SD 46.1 fl (35.1-43.9); Red Blood Count 3.80 M/mm3 (4.6-6.2); White Blood Count 8.2 K/mm3 (4.4-11.0)
[2025-06-09 05:01] LABS: AST(SGOT) 33 U/L (<=37); Alanine Aminotransfer ALT/SGPT 69 U/L (<=46); Albumin, Serum 3.4 g/dL (3.4-4.8); Alkaline Phosphatase 77 U/L (40-129); Anion Gap 8 (5-15); BUN 18 mg/dL (4-19); BUN/Creat Ratio 17.3 RATIO (10-20); Calcium,Total 8.7 mg/dL (7.6-11.0); Carbon Dioxide 24.7 mmol/L (21.0-32.0); Chloride 107 mmol/L (98-108); Cholesterol 156 mg/dL (<=200); Estimated Creatinine Clearance 74.61 ml/min (50-250); Globulin 2.3 g/dL (2.2-4.2); Glucose 120 mg/dL (70-99); Low Density Lipoprotein Calc. 98 mg/dL; Potassium 3.9 mmol/L (3.3-5.1); Triglycerides 125 mg/dL; Very Low Density Lipoprotein 25 mg/dL (5-40); cholesterol:hdl ratio screen 4.73
[2025-06-09 06:13] LABS: FOLATES,SERUM (FOLIC ACID) 9.88 ng/mL (4.60-34.80)
[2025-06-09] MEDS: Albuterol 2.5 MG/3 ML VIAL.NEB. INHALATION ×3 (07:14→19:15)
[2025-06-09] MEDS: Budesonide Respules 0.5 MG/2 ML AMPUL.NEB. INHALATION ×2 (07:14→19:15)
[2025-06-09] MEDS: Polyethylene Glycol 3350 17 GM PACKET 4 GM PO (07:50)
--- NOTE | 2025-06-09 09:56 | PCM.PN.HOSP ---
Reason for Visit Chief Complaint: Pain in Feet with Inability to Ambulate. Objective Data Objective Data Vital Signs: Vital Signs Temp Pulse Resp BP Pulse Ox O2 Del Method O2 Flow Rate 97.1 F L 69 18 118/68 98 Room Air 2 06/09/25 07:45 06/09/25 07:45 06/09/25 07:45 06/09/25 07:45 06/09/25 07:45 06/09/25 07:45 06/09/25 07:14 Oxygen Flow Rate (L/min) 2 Oxygen Delivery Method Room Air Weight: 245 lb 13.047 oz Body Mass Index (BMI) 35.2 Intake & Output: Intake and Output for Last 24 Hours 06/07/25 06/08/25 06/09/25 23:59 23:59 23:59 Intake Total 240 / 240 Balance 240 / 240 Lab / Micro Data 06/09/25 04:16 06/09/25 04:16 Labs: Laboratory Results - last 24 hr 06/08/25 18:44: WBC 10.0, RBC 4.14 L, Hgb 13.3, Hct 38.2 L, MCV 92.3, MCH 32.1 H, MCHC 34.8, RDW Std Deviation 45.4 H, RDW Coeff of Sandra 13.3, Plt Count 191, MPV 9.2, Immature Gran % (Auto) 0.800, Neut % (Auto) 75.9 H, Lymph % (Auto) 14.7 L, [place] % (Auto) 8.2, Eos % (Auto) 0.0, Baso % (Auto) 0.4, Absolute Neuts (auto) 7.6, Absolute Lymphs (auto) 1.48, Nucleated RBC % 0, ESR 15, Sodium 140, Potassium 4.2, Chloride 107, Carbon Dioxide 21.9, Anion Gap 11, BUN 17, Creatinine 1.00, Estim Creat Clear Calc 78.09, Est GFR (MDRD) Non-Af 78, BUN/Creatinine Ratio 17.3, Glucose 90, Hemoglobin A1c 5.4, Calcium 9.2, Magnesium 2.2, Total Creatine Kinase 41, C-React Prot Ext Range < 3.00, Vitamin B12 515, TSH 1.690 06/08/25 20:26: Urine Color Yellow, Urine Clarity Clear, Urine pH 5.0, Ur Specific Wilberforce 1.025, Urine Protein Negative, Urine Glucose (UA) Normal, Urine Ketones 5 H, Urine Occult Blood Negative, Urine Nitrite Negative, Urine Bilirubin Negative, Urine Urobilinogen Normal, Ur Leukocyte Esterase Negative, Urine RBC 0 SEEN, Urine WBC 0 SEEN, Ur Squamous Epith Cells 0 SEEN, Urine Bacteria 0 SEEN, Urine Mucus 0 SEEN 06/09/25 04:16: WBC 8.2, RBC 3.80 L, Hgb 12.0 L, Hct 35.8 L, MCV 94.2 H, MCH 31.6, MCHC 33.5, RDW Std Deviation 46.1 H, RDW Coeff of Sandra 13.5, Plt Count 173, MPV 9.3, Immature Gran % (Auto) 1.000 H, Neut % (Auto) 66.4, Lymph % (Auto) 22.0, [place] % (Auto) 10.4 H, Eos % (Auto) 0.0, Baso % (Auto) 0.2, Absolute Neuts (auto) 5.5, Absolute Lymphs (auto) 1.80, Nucleated RBC % 0, Sodium 140, Potassium 3.9, Chloride 107, Carbon Dioxide 24.7, Anion Gap 8, BUN 18, Creatinine 1.04, Estim Creat Clear Calc 74.61, Est GFR (MDRD) Non-Af 74, BUN/Creatinine Ratio 17.3, Glucose 120 H, Calcium 8.7, Phosphorus 3.7, Total Bilirubin 0.35, AST 33, ALT 69 H, Alkaline Phosphatase 77, Total Protein 5.8 L, Albumin 3.4, Globulin 2.3, Albumin/Globulin Ratio 1.5, Triglycerides 125, Cholesterol 156, LDL Cholesterol, Calc 98, VLDL Cholesterol 25, HDL Cholesterol 33 L, Cholesterol/HDL Ratio 4.73, Serum Folate 9.88 Radiography Diagnostic Testing: Radiology Impression Foot X-Ray 06/08/25 18:50 IMPRESSION: No acute osseous abnormality of either foot. Moderate osteoarthritis bilaterally. Reading Location: [id number] Foot X-Ray 06/08/25 18:50 IMPRESSION: No acute osseous abnormality of either foot. Moderate osteoarthritis bilaterally. Reading Location: [facility] Physical Exam Narrative Seen and examined. Patient came because of right leg numbness, could not bear weight on his feet. He was also mildly confused dizzy and disoriented after taking gabapentin. Patient stated the past he had back pain but which is not bothering him. He is [place] and probably had EMG/NCV study about 20 years ago which she does not remember. Physical exam General: Alert, Oriented x3, Cooperative HEENT: Atraumatic, PERRLA, EOMI, Normocephalic. Oral: No Gingival or Mucosal Lesions/ Ulcerations Neck: Supple, No JVD, Negative Carotid Bruits Chest wall/Lungs: Air entry diminished in bilateral lung bases. No crepitation/rhonchi Cardiovascular: Regular rate and rhythm, Normal S1,S2, No M/G/R Abdomen: Bowel Sounds Present, Soft, Non Tender, Non-Distended : No dysuria. No renal angle tenderness. No suprapubic tenderness. Extremities: No edema, Capillary Refill Less than 3 Seconds Skin: No rashes, No breakdown Musculoskeletal: No Tenderness to Palpation of Joints or Extremities Neurological: Cranial nerves II-XII grossly intact, DTR 2+/4. Numbness in right foot. Psych/Mental Status: Normal Affect, Appropriate. Assessment & Plan Assessment/Plan (1) Bilateral foot pain: (2) Neuropathy: (3) Adverse drug reaction: QUALIFIERS: Encounter type: initial encounter Qualified Code(s): T50.905A - Adverse effect of unspecified drugs, medicaments and biological substances, initial encounter (4) Generalized weakness: (5) Ambulatory dysfunction: (6) Obesity (BMI 30-39.9): (7) History of Crohn's disease: PLAN: Plan B/L feet pain getting worse over past 3 weeks. Pain is harp, wose with weight bearing, follows Podiarist at [facility]. Numbness below knees for 3 weeks 1. Bilateral foot pain; presumably due to severe neuropathy (not from B-12 deficiency with level of 515 pg/mL present on admission) with patient recently started on gabapentin with subsequent side effect of dizziness confusion and disorientation suggestive of acute encephalopathy- Admit to general medical floor under observation status. Hold gabapentin. Start pregabalin 50 mg p.o. 3 times daily and titrate as needed to control symptoms. Pain control 2. Generalized Weakness with Ambulatory Dysfunction attributable to #1 - PT/OT and Case Management consult patient also said he is feeling dizzy and not safe to go home today therefore advised PT and OT. His feet feel painful 3. Obesity (class II); with BMI of 35.9 this admission plus FABIANO; on CPAP adding to the burden of disease: Weight loss recommended maintain nocturnal CPAP as before. This complicates his case and may hamper recovery. 4. History of Crohn's disease; on benralizumab, vedolizumab and prednisone Resume home regimen to prevent acute flare. 5. GERD; on famotidine and esomeprazole - Resume H2-ambrosio and PPI. 6. Degenerative OA; on ibuprofen every 8 hours as needed at home-. DVT prophylaxis - Enoxaparin 40 mg subcu daily. Charges/Coding Visit Charges Inpatient E&M: 85866 Subs Hosp L2
--- NOTE | 2025-06-09 12:02 | CASEMGMT ---
Social Work- SW met with pt to discuss statement made in ED and discharge planning. SW introduced self and role; pt agreeable to meet. Pt was sitting in chair; SW observed that pt had frequent, repetitive movements seemingly from psychomotor agitation. Pt verbalized mental health history including PTSD from service in [place] and depression from loss of twin brother and two sisters. Pt reports that he sees a counselor as he feels is needed and is involved in mental health services through the [place]. Pt reports that he takes daily drives to feel better. Pt reports bouts of depression in which pt does not leave home or talk to people. Pt reports that he does not feel he has severe depression and would not and does not currently feel that he would harm himself. Pt reports that he has not thought of suicide and reports that he did not recall making comments alluding to such in the emergency room. Pt reported that he was confused and in pain upon arrival. Pt reports that he does not feel he is safe to discharge at this time due to brain fog, confusion, dizziness, head spinning, and pain. Pt declines interest in [facility], as he reports that the [facility] is arranging services for him. Pt gave permission for SW to call [facility] to follow up. SW called [facility] and left a voicemail for PERCY Torres. SW notified hospitalist of pt request to remain due to feeling unsafe at home. Hospitalist reports that pt will remain in hospital. Pt currently ambulated 170' with PT. SW will remain available to follow for discharge needs and emotional support. PREM Magallon
--- NOTE | 2025-06-09 16:32 | CASEMGMT ---
Met with patient to complete ORTIZ form. ORTIZ form and its content were verbally explained and patient's questions were answered to the best of my ability.? Patient voiced understanding and signed ORTIZ form.? Patient provided a copy of signed ORTIZ form and original placed in patient's chart.? Patient had no further questions. Maureen Goss, Discharge Planning Asst
[2025-06-10 04:30] VITALS: BP 120/57; PULSE 68; RESP 16; TEMP 36.5; O2SAT 99
[2025-06-10 05:26] VITALS: BMI 35.2
[2025-06-10 07:08] VITALS: PULSE 62; RESP 16; O2SAT 99
[2025-06-10] MEDS: Albuterol 2.5 MG/3 ML VIAL.NEB. INHALATION (07:08)
[2025-06-10] MEDS: Budesonide Respules 0.5 MG/2 ML AMPUL.NEB. INHALATION (07:08)
[2025-06-10 08:39] VITALS: BP 137/59; PULSE 80; RESP 18; TEMP 36.3; O2SAT 100
[2025-06-10] MEDS: Polyethylene Glycol 3350 17 GM PACKET 4 GM PO (08:55)
--- NOTE | 2025-06-10 10:30 | PCM.DC ---
Discharge Instructions DC O2, CPAP, BIPAP needs Home O2 Discharge instructions: No Dressing / Incision Discharge Activity: Return to Normal Activity Weight Bearing Status: Weight bearing as tolerated Dressing / Incision Call your doctor if you observe: Fever of 101 or Higher, Coldness, Increased Pain, Numbness or Tingling, Change in Color, Inability to urinate, Inability to have a bowel movement, Shortness of breath, Dizziness, Fainting spells, Swelling in the ankles, Chest pain, Prolonged hiccupping, Increased palpitations (irregular heartbeat) and Calf discomfort Follow Up Care When: IN 2 WEEKS Test Results: Test results from this visit will be discussed in further detail at your follow-up appointment, if applicable. Discharge Plan Admission Admit Date/Time: 06/08/25 22:03 Primary Reason for Your Visit: Neuropathy Attending Provider: Paulie Majano Primary Care Provider: Jaycob Yang Consulting Providers: Diomedes Fitzpatrick Instructions Additional Instructions / Restrictions: Patient states he has follow-up appointment with neurologist in [facility]. Outpatient physical therapy recommended Discharge Orders/Prescriptions Prescriptions: New ibuprofen 600 mg tablet 600 mg PO Q8H PRN PRN (Reason: pain) Qty: 20 0RF Continued Fasenra 10 mg/0.5 mL syringe 30 mg subcut Q8W Rx Instructions: start week 16 of treatment Entyvio 300 mg recon soln 300 mg IV .COMPLEX Rx Instructions: 300 mg intravenously q 8 weeks; 300 mg intravenously; every 8 weeks polyethylene glycol 3350 [Miralax] 17 gram/dose powder 4 g PO ONCE fluticasone furoate-vilanterol [Breo Ellipta] 200-25 mcg/dose blister with device 1 inh inhalation DAILY ipratropium bromide 42 mcg (0.06 %) spray,non-aerosol 2 spray INTRANASAL TID PRN (Reason: allergy symptoms) albuterol sulfate 90 mcg/actuation aerosol powdr breath activated 2 inh inhalation Q4H PRN (Reason: shortness of breath) prednisone 1 mg tablet 4 mg PO DAILY dicyclomine 20 mg tablet 20 mg PO 4X/DAY famotidine [Acid Controller] 20 mg tablet 20 mg PO QHS esomeprazole magnesium 40 mg capsule,delayed release(DR/EC) 40 mg PO DAILY bisacodyl 5 mg tablet 5 mg PO QODAY Referrals / Follow Up: Jaycob Yang MD [Primary Care Provider] - Within 2 Weeks Clemente Chadwick MD [Non-Staff -Ordering Privileges] - Within 2 Weeks Disposition Disposition (needs filled in before D/C Order can be placed): Home, Self Care
--- NOTE | 2025-06-10 10:44 | CASEMGMT ---
Social Work- PERCY collaborated with [facility]. Brian reports pt has a mental health appointment 06/15. Pt just started services through [facility]. Pt does not currently have HHC, but would be eligible. Pt also eligible for SNF. PERCY met with pt to discuss discharge planning. Pt reports that he has pain in feet after walking. SW notified nurse. SW provided education on neuro follow up and encouraged pt to speak with nurse for education on neuropathic pain. Pt reports that he has a neuro appointment scheduled in July at [facility]. SW encouraged pt to call and be placed on a call list d/t hospitalization. Pt aware on 06/15 appointment. Pt refusing referrals for OP or HHC. Pt reports that if he changes his mind, he will follow up with [facility]. Pt reports no other needs at this time. Physician updated. PREM Magallon
--- NOTE | 2025-06-10 11:32 | PCM.DC.SUM ---
Providers Date of Admission: 06/08/25 Date of Discharge: 06/10/25 Primary Care Physician: Jaycob Yang MD Reason For Visit: BILATERAL FOOT PAIN WITH INABILITY TO AMBULATE Diagnosis Discharge Diagnosis (1) Bilateral foot pain: Status: Acute Code(s): M79.671 - Pain in right foot; M79.672 - Pain in left foot (2) Neuropathy: Status: Acute Code(s): G62.9 - Polyneuropathy, unspecified (3) Adverse drug reaction: Status: Acute Code(s): T50.905A - Adverse effect of unspecified drugs, medicaments and biological substances, initial encounter Qualifiers: Encounter type: initial encounter Qualified Code(s): T50.905A - Adverse effect of unspecified drugs, medicaments and biological substances, initial encounter (4) Generalized weakness: Status: Acute Code(s): R53.1 - Weakness (5) Ambulatory dysfunction: Status: Acute Code(s): R26.2 - Difficulty in walking, not elsewhere classified (6) Obesity (BMI 30-39.9): Status: Acute Code(s): E66.9 - Obesity, unspecified (7) History of Crohn's disease: Status: Acute Code(s): Z87.19 - Personal history of other diseases of the digestive system Plan B/L feet pain getting worse over past 3 weeks. Pain is harp, wose with weight bearing, follows Podiarist at [facility]. Numbness below knees for 3 weeks 1. Bilateral foot pain; presumably due to severe neuropathy (not from B-12 deficiency with level of 515 pg/mL present on admission) with patient recently started on gabapentin with subsequent side effect of dizziness confusion and disorientation suggestive of acute encephalopathy- Admit to general medical floor under observation status. Hold gabapentin. Start pregabalin 50 mg p.o. 3 times daily and titrate as needed to control symptoms. Pain control 06/10: Patient had walked with an physical therapy on the walker. He has suboptimal problem in equilibrium and balance. Recommended outpatient physical therapy. Patient is a [place] and discussed with the manager social work. He declined home health referral. Patient stated he has appointment with neurologist through [place]. Advised to follow-up with him if not then he can follow-up with our neurologist, Dr. Chadwick 2. Generalized Weakness with Ambulatory Dysfunction attributable to #1 - PT/OT and Case Management consult patient also said he is feeling dizzy and not safe to go home today therefore advised PT and OT. His feet feel painful 3. Obesity (class II); with BMI of 35.9 this admission plus FABIANO; on CPAP adding to the burden of disease: Weight loss recommended maintain nocturnal CPAP as before. This complicates his case and may hamper recovery. 4. History of Crohn's disease; on benralizumab, vedolizumab and prednisone Resume home regimen to prevent acute flare. 5. GERD; on famotidine and esomeprazole - Resume H2-ambrosio and PPI. 6. Degenerative OA; on ibuprofen every 8 hours as needed at home-. DVT prophylaxis - Enoxaparin 40 mg subcu daily. Discharge medication reconciliation done. Discharge follow-up instructions completed. Discharge process discussed with the patient and all questions were answered to patient's satisfaction. Follow with PCP in 1 to 2 weeks Total time spent, exact 35 minutes on discharge meds reconciliation, examination, coordination of care with nurses and ancillary staff, review of imaging and blood test and discussion with the patient on follow-up instructions. Medications at Discharge Home Medications benralizumab 10 mg/0.5 mL subcutaneous syringe (Fasenra) 30 mg subcut Q8W 05/29/25 polyethylene glycol 3350 17 gram/dose oral powder (Miralax) 4 g PO ONCE 05/29/25 vedolizumab 300 mg intravenous solution (Entyvio) 300 mg IV .COMPLEX 05/29/25 albuterol sulfate 90 mcg/actuation breath activated powder inhaler 2 inh inhalation Q4H PRN shortness of breath 05/31/25 bisacodyl 5 mg tablet 5 mg PO QODAY 05/31/25 dicyclomine 20 mg tablet 20 mg PO 4X/DAY 05/31/25 esomeprazole magnesium 40 mg capsule,delayed release 40 mg PO DAILY 05/31/25 famotidine 20 mg tablet (Acid Controller) 20 mg PO QHS 05/31/25 ipratropium bromide 42 mcg (0.06 %) nasal spray 2 spray intranasal TID PRN allergy symptoms 05/31/25 prednisone 1 mg tablet 4 mg PO DAILY 05/31/25 fluticasone furoate 200 mcg-vilanterol 25 mcg/dose inhalation powder (Breo Ellipta) 1 inh inhalation DAILY 06/08/25 ibuprofen 600 mg tablet 600 mg PO Q8H PRN PRN pain #20 TABLETS 06/08/25 Physical Exam Narrative Seen and examined. Patient can walk with the walker. Has problem in turning around and balance. Patient still has still numbness in the right leg He is [place] and probably had EMG/NCV study about 20 years ago which she does not remember. Physical exam General: Alert, Oriented x3, Cooperative HEENT: Atraumatic, PERRLA, EOMI, Normocephalic. Oral: No Gingival or Mucosal Lesions/ Ulcerations Neck: Supple, No JVD, Negative Carotid Bruits Chest wall/Lungs: Air entry diminished in bilateral lung bases. No crepitation/rhonchi Cardiovascular: Regular rate and rhythm, Normal S1,S2, No M/G/R Abdomen: Bowel Sounds Present, Soft, Non Tender, Non-Distended : No dysuria. No renal angle tenderness. No suprapubic tenderness. Extremities: No edema, Capillary Refill Less than 3 Seconds Skin: No rashes, No breakdown Musculoskeletal: No Tenderness to Palpation of Joints or Extremities Neurological: Cranial nerves II-XII grossly intact, DTR 2+/4. Numbness in right foot. Psych/Mental Status: Normal Affect, Appropriate. Weight / BMI Weight Weight: 245 lb 9.519 oz Body Mass Index (BMI) 35.2 ABG / Lab / Microbiology Data 06/09/25 04:16 06/09/25 04:16 Laboratory: Laboratory Results - last 24 hr 06/10/25 06:17: Phosphorus 3.2 D/C Instructions Weight Bearing Status: Weight bearing as tolerated Call your doctor if you observe: Fever of 101 or Higher, Coldness, Increased Pain, Numbness or Tingling, Change in Color, Inability to urinate, Inability to have a bowel movement, Shortness of breath, Dizziness, Fainting spells, Swelling in the ankles, Chest pain, Prolonged hiccupping, Increased palpitations (irregular heartbeat) and Calf discomfort DC O2, CPAP, BIPAP Needs Home O2 Discharge instructions: No When: IN 2 WEEKS Meaningful Use Info Meaningful Use Meaningful Use Diagnoses (Choose all that apply): None applicable Discharge Plan Admission Admit Date/Time: 06/08/25 22:03 Primary Reason for Your Visit: Neuropathy Attending Provider: Paulie Majano Primary Care Provider: Jaycob Yang Consulting Providers: Diomedes Fitzpatrick Instructions Additional Instructions / Restrictions: Patient states he has follow-up appointment with neurologist in [facility]. Outpatient physical therapy recommended Discharge Orders/Prescriptions Prescriptions: New ibuprofen 600 mg tablet 600 mg PO Q8H PRN PRN (Reason: pain) Qty: 20 0RF Continued Fasenra 10 mg/0.5 mL syringe 30 mg subcut Q8W Rx Instructions: start week 16 of treatment Entyvio 300 mg recon soln 300 mg IV .COMPLEX Rx Instructions: 300 mg intravenously q 8 weeks; 300 mg intravenously; every 8 weeks polyethylene glycol 3350 [Miralax] 17 gram/dose powder 4 g PO ONCE fluticasone furoate-vilanterol [Breo Ellipta] 200-25 mcg/dose blister with device 1 inh inhalation DAILY ipratropium bromide 42 mcg (0.06 %) spray,non-aerosol 2 spray INTRANASAL TID PRN (Reason: allergy symptoms) albuterol sulfate 90 mcg/actuation aerosol powdr breath activated 2 inh inhalation Q4H PRN (Reason: shortness of breath) prednisone 1 mg tablet 4 mg PO DAILY dicyclomine 20 mg tablet 20 mg PO 4X/DAY famotidine [Acid Controller] 20 mg tablet 20 mg PO QHS esomeprazole magnesium 40 mg capsule,delayed release(DR/EC) 40 mg PO DAILY bisacodyl 5 mg tablet 5 mg PO QODAY Referrals / Follow Up: Jaycob Yang MD [Primary Care Provider] - Within 2 Weeks Clemente Chadwick MD [Non-Staff -Ordering Privileges] - Within 2 Weeks Disposition Disposition (needs filled in before D/C Order can be placed): Home, Self Care Charges/Coding Visit Charges Inpatient E&M: 61144 Disch Hosp >30min
--- NOTE | 2025-06-10 11:35 | CASEMGMT ---
Social Work- SW received a call from [facility] [phone] ext [phone] to coordinate on admit/pt needs. PERCY provided update. PREM Magallon
== END 2025-06-10 14:17 | disposition home or self-care (01) ==
LOC: ED 21:44 → MS3 22:31
PROVIDERS: Admitting Provider Internal Medicine; Emergency Provider Emergency Medicine; PCP Family Medicine; Visit Provider Internal Medicine
DX: G62.9 Polyneuropathy, unspecified (principal); K50.90 Crohn's disease, unspecified, without complications; M79.671 Pain in right foot; R53.1 Weakness; R26.89 Other abnormalities of gait and mobility; M79.672 Pain in left foot; R62.7 Adult failure to thrive; Z68.35 Body mass index [BMI] 35.0-35.9, adult; E66.9 Obesity, unspecified; Z87.891 Personal history of nicotine dependence; Z86.718 Personal history of other venous thrombosis and embolism; R03.0 Elevated blood-pressure reading, without diagnosis of hypertension; T50.905A Adverse effect of unspecified drugs, medicaments and biological substances, initial encounter; J45.909 Unspecified asthma, uncomplicated; N40.0 Benign prostatic hyperplasia without lower urinary tract symptoms; Z79.899 Other long term (current) drug therapy; Z79.52 Long term (current) use of systemic steroids; E66.812 Obesity, class 2; R26.2 Difficulty in walking, not elsewhere classified
CPT/HCPCS: 36415; 73630; 80048; 80053; 80061; 81001; 82550; 82607; 82746; 83036; 83735; 84100; 84443; 85025; 85652; 86140; 94640; 94668; 96372; 96374; 96375; 97112; 97116; 97162; 97530; 99221; 99285; A4216; G0378; J2405

== ENCOUNTER 2025-06-13 05:39 | Emergency (ER) | payer OTHER, SELFPAY ==
[2025-06-13 05:40] VITALS: BP 159/76; PULSE 86; RESP 18; TEMP 36.3; O2SAT 99; BMI 36.0
--- NOTE | 2025-06-13 06:14 | EX.ED.DYSGE1 ---
HPI History of Present Illness Chief Complaint: Other, Pain/Inj Informant: patient Narrative Narrative: Frustrated pleasant 79-year-old gentleman presenting with diffuse upper and lower bilateral lip pain that been present for the past 4 to 5 weeks. It hurts for him to touch his lips but nowhere else. If he eats something it does not hurt to chew, but then shortly thereafter when he is done eating, the pain flares up and is severe for a while. Similarly when he was swishing and swallowing medication for possible thrush, the pain was severe. Even when he would swish and spit it out, a minute or so later the pain would ramp up and be fairly severe in the same place. He has seen otolaryngology for this, they put him on antifungals. He has taken fluconazole several times as well and it did not help. Somebody put him on prednisone and he thought it did help but his doctor told him to get off of it. He takes prednisone 4 mg daily for his Crohn's and asthma, when his Crohn's flares up he gets abdominal pain and diarrhea without blood, he has had none of that in the past month. No coexisting chest discomfort, odynophagia or throat pain, headache, earache, or dyspnea. No palpitations or syncope. States occasionally the tip of his tongue hurts a little bit but not right now. He states he was given a new compounded prescription that he switched in his mouth last night for this and it made everything so much worse that he states he was screaming in pain all night which is why he presents at 6 AM for this. [facility] Medical History Neuropathy Ambulatory dysfunction Generalized weakness Depression Former smoker CPAP (continuous positive airway pressure) dependence Zenkers diverticulum BPH (benign prostatic hyperplasia) History of DVT (deep vein thrombosis) GERD (gastroesophageal reflux disease) Former smoker Sleep apnea Chest pain Asthma IBS (irritable bowel syndrome) Crohn's disease Home Medications ?Medication ?Instructions ?Recorded ?Last Taken ?Type benralizumab 10 mg/0.5 mL 30 mg subcut Q8W 05/29/25 04/06/25 History subcutaneous syringe (Fasenra) polyethylene glycol 3350 17 4 g PO ONCE 05/29/25 05/30/25 History gram/dose oral powder (Miralax) vedolizumab 300 mg intravenous 300 mg IV .COMPLEX 05/29/25 05/03/25 History solution (Entyvio) albuterol sulfate 90 mcg/actuation 2 inh inhalation Q4H PRN shortness 05/31/25 05/17/25 History breath activated powder inhaler of breath bisacodyl 5 mg tablet 5 mg PO QODAY 05/31/25 05/30/25 History dicyclomine 20 mg tablet 20 mg PO 4X/DAY 05/31/25 05/31/25 History esomeprazole magnesium 40 mg 40 mg PO DAILY 05/31/25 05/31/25 History capsule,delayed release famotidine 20 mg tablet (Acid 20 mg PO QHS 05/31/25 05/30/25 History Controller) ipratropium bromide 42 mcg (0.06 2 spray intranasal TID PRN allergy 05/31/25 05/30/25 History %) nasal spray symptoms prednisone 1 mg tablet 4 mg PO DAILY 05/31/25 05/30/25 History Held on 06/13/25. Instructions: Resume on 06/23/25. hold while on higher dose of prednisone fluticasone furoate 200 1 inh inhalation DAILY 06/08/25 Unknown History mcg-vilanterol 25 mcg/dose inhalation powder (Breo Ellipta) ibuprofen 600 mg tablet 600 mg PO Q8H PRN PRN pain #20 06/08/25 Unknown Rx TABLETS prednisone 10 mg tablet 10 mg PO UD #18 tabs 06/13/25 Unknown Rx Allergy/AdvReac Type Severity Reaction Status Date / Time adalimumab (From Humira) Allergy itching Verified 06/13/25 05:44 NSAIDS (Non-Steroidal AdvReac Mild crohns Verified 06/13/25 05:48 Anti-Inflamma flare up Family History Mother CHF (congestive heart failure) Father Cancer unsure Surgical History History of colonoscopy (~06/2021) Hx of cholecystectomy Social History Smoking Status: Former smoker ROS ROS ED Constitutional Constitutional ED: Denies chills or fever(s) Eyes Eyes: Denies change in vision or diplopia ENT ENT ED: Reports other Details: Diffuse lip pain see HPI ; Denies rhinorrhea or sore throat Cardiovascular Cardiovascular: Denies chest pain or palpitations Respiratory/Chest Respiratory/Chest: Denies cough or dyspnea Gastrointestinal Gastrointestinal: Denies abdominal pain, diarrhea, nausea or vomiting Genitourinary Genitourinary ED: Denies dysuria or hematuria Musculoskeletal Musculoskeletal: Denies back pain or neck pain Integumentary Denies abscess or rash Neurologic Neurologic: Denies headache(s), paresthesias or weakness Psychiatric Psychiatric: Denies anxiety or suicidal thoughts EXAM Physical Exam Const Vital Signs: 06/13/25 05:40 Temperature 97.4 F L Temperature Source Temporal Pulse Rate 86 Respiratory Rate 18 Blood Pressure 159/76 H Blood Pressure Mean 103 Pulse Ox 99 Oxygen Delivery Method Room Air Positive well nourished and well developed General Appearance ED: well developed and NAD HEENT Reports moist mucous membranes HEENT Narrative: Patient's lips look normal. He has a small amount of ecchymosis in the left lower lip without swelling, but he does not have any significant tenderness here. He states he had something like that a couple weeks ago on the right side that lasted 4 days and went away and it did not hurt significantly more there either. Intraoral exam is fairly normal. He has been sucking on popsicles tonight trying to help with the discomfort, so his tongue is a little blue but otherwise normal there are no lesions. The submandibular gland ducts look normal, Stensen's duct is normal bilaterally, the parotid and submandibular areas are all nontender and there is no lymphadenopathy in his neck or posterior neck. He is talking normally without hot potato voice or stridor. The lips are not swollen. There is no evidence of angular cheilitis. Posterior pharynx is a little erythematous and dry appearing, but the patient swallows and states it does not hurt. normocephalic and atraumatic Eyes PERRL and EOMs intact bilaterally Neck full ROM, no lymphadenopathy and supple Resp normal respiratory effort and clear to auscultation bilaterally Cardio regular rate, regular rhythm, no murmurs and peripheral pulses 2+ throughout GI non-tender and non-distended Auscultation: normoactive bowel sounds Palpation: soft Back/Spine no CVA tenderness General Back: other FROM Extremity normal to inspection General Extremety ED: Negative for edema, pulses abnormal or tenderness General Extremity: Negative for edema or pulses abnormal Neuro oriented x3, CN's II-XII intact bilaterally and no sensory deficits noted Sensorium / Orientation: awake and alert Motor Exam: strength 5/5 throughout Skin no rashes or lesions noted and no wounds MDM MDM MDM Narrative Medical decision making narrative: This is a very unusual pain. I am reproducing the pain by touching his lips but it is diffuse and just below the vermilion it is nontender. I would think it is referred pain, however I can touch his lips and it hurts him making me think this is not referred. He is not having a toothache to suggest this is an aortic dissection or something unusual or life-threatening. There is no asymmetry on exam or other abnormality to make me think a soft tissue CT of the neck is going to be helpful. One consideration is that this could be related to his Crohn's somehow which can affect someone from mouth to anus. Also in consideration is some type of neuropathic pain, but that would be more likely if it was just unilateral. It is interesting that he states while he was on 50 mg of prednisone a day, he thinks it was better, but he had other unintended side effects. He is well-appearing and he is in no distress and other than a little bit of systolic hypertension his vital signs are normal. I think putting him on 30 mg prednisone a day and tapering down over a week to see if that helps would be reasonable and have him follow-up. He is comfortable with that plan. Discharge Plan Triage Chief Complaint: Other, Pain/Inj ED Provider: Zurdo Alcala Dx/Rx/DC Orders Clinical Impression: Lip pain, Crohn's disease Instructions: Understanding the Pain Response Prescriptions: New prednisone 10 mg tablet 10 mg PO UD Qty: 18 0RF Rx Instructions: Take 3 tabs daily for 3 days, then 2 daily for 3 days, then 1 a day for 3 days Continued Fasenra 10 mg/0.5 mL syringe 30 mg subcut Q8W Rx Instructions: start week 16 of treatment Entyvio 300 mg recon soln 300 mg IV .COMPLEX Rx Instructions: 300 mg intravenously q 8 weeks; 300 mg intravenously; every 8 weeks polyethylene glycol 3350 [Miralax] 17 gram/dose powder 4 g PO ONCE ibuprofen 600 mg tablet 600 mg PO Q8H PRN PRN (Reason: pain) Qty: 20 0RF fluticasone furoate-vilanterol [Breo Ellipta] 200-25 mcg/dose blister with device 1 inh inhalation DAILY ipratropium bromide 42 mcg (0.06 %) spray,non-aerosol 2 spray INTRANASAL TID PRN (Reason: allergy symptoms) albuterol sulfate 90 mcg/actuation aerosol powdr breath activated 2 inh inhalation Q4H PRN (Reason: shortness of breath) dicyclomine 20 mg tablet 20 mg PO 4X/DAY famotidine [Acid Controller] 20 mg tablet 20 mg PO QHS esomeprazole magnesium 40 mg capsule,delayed release(DR/EC) 40 mg PO DAILY bisacodyl 5 mg tablet 5 mg PO QODAY Held prednisone 1 mg tablet 4 mg PO DAILY Hold Instructions: Resume on 06/23/25. hold while on higher dose of prednisone Primary Care Provider: Jaycob Yang Referrals: Jaycob Yang MD [Primary Care Provider] - As soon as possible Activity Restrictions/Additional Instructions: You received a dose of prednisone in the ER, so start the prescription tomorrow 06/14. Print Language: Colombian Disposition Disposition: Home, Self Care
[2025-06-13 06:31] VITALS: BP 110/76; PULSE 87; RESP 18; TEMP 36.3; O2SAT 96
--- OUTSIDE RECORDS SUMMARY | 2025-06-13 06:39 | XMS RPT_ITS | CCD ---
Author Organization [facility] Care Team Providers Care Account Classification Clerk Name Role Phone MELVIZINGBRIT SANTAMARIA, TONIO DONALDSON Unavailable Unav ailable LANZINGER JR, [...] DONALDSON Unavailable Unav ailable LANZINGER JR, TONIO DONALSDON Unavailable Unav ailable LANZINGER JR, TONIO DONALDSON [...] HERRERA Attending Unavailable SHANNAN RAYMUNDO Consulting Unavailable DOMINIQUE HERRERA Admitting Unavailable DOMINIQUE HERRERA Primary Care Unavailable PROVIDER, UNKNOWN Consulting Unavailable DOMINIQUE HERRERA Attending Unavailable JAVIER, DOMINIQUE C Admitting Unavailable SCHINDAISY, SHANNAN E Consulting Unavailable JAVIER, DOMINIQUE C Primary Care Unavailable PROVIDER, UNKNOWN Consulting Unavailable JAVIER, DOMINIQUE C Attending Unavailable JAVIER, DOMINIQUE C Admitting Unavailable SCHINNER, SHANNAN E Consulting Unavailable JAVIER, DOMINIQUE C Primary Care Unavailable PROVIDER, UNKNOWN Consulting Unavailable DO Marlene Corea Primary Care Provider [phone] Dr. He Diaz Attending Provider [phone] Jaycob Yang MD Primary Care Provider [phone] SHANNAN GUILLEN Primary Care Unavailable MALOU VILLAGOMEZ Attending Unavailable GREG CADENA DO Attending Unavailable PHYSICIAN, NOT RECORDED Primary Care Unavaila eulogio Yang MD, Jaycob Primary Care Provider [phone] Katerin LOVELL, Dr. Valerie Vang Attending Provider Dr. Valerie Conklin MD Referring Provider Provider, Ed Physician Emergency Provider Jaycob Cornell MD Primary Care Provider [phone] Provider, Ed Physician Attending Provider Jaycob Cornell MD Referring Provider [phone] Dr. Barrington Sanchez DO Emergency Provider [phone] Geovani Ramirez DO Attending Provider Dr. Geovani Ramirez DO Other Provider Barrington Mclaughlin Attending Provider Barrington Mclaughlin Referring Provider Jaycob Yang MD Attending Provider [phone] Lashawn Gutierrez Attending Provider Dr. Lewis Turpin DO Emergency Provider Jaycob Yang MD Primary Care Provider [phone] Lewis Turpin DO Attending Provider Fitzpatrick DO, Dr. Donaldson Admit Provider Unavail able Dr. Diomedes Fitzpatrick DO Attending Provider Unav ailable Fitzpatrick DO, Dr. Donaldson Other Provider Unavail able Melecio LOVELL, Dr. Apodaca Attending Provider Melecio LOVELL, Dr. Apodaca Other Provider [phone] Trey, Chalon Referring Unavailable Trey, Chalon Attending Unavailable Trey, Chalon Primary Care Unavailable Trey, Chalon Primary Care Unavailable Jolliff, Valerie S Referring Unavailable Jolliff, Valerie S Attending Unavailable Diomedes Fitzpatrick Attending Unavailable Diomedes Fitzpatrick Consulting Unavailable Diomedes Fitzpatrick Admitting Unavailable Trey, Chalon Primary Care Unavailable Paulie Majano Attending Unavailable Paulie Majano Consulting Unavailable FriendGeovani Attending Unavailable FriendGeovani Consulting Unavailable Trey, Chalon Primary Care Unavailable Trey, Chalon Referring Unavailable Trey, Chalon Referring Unavailable Trey, Chalon Primary Care Unavailable Lashawn Castillo Attending Unavailable Trey, Chalon Primary Care Unavailable Downs, Parwaiz Referring Unavailable NagajoJane shahademartina Attending Unavailabl e Trey, Chalon Primary Care Unavailable Downs, Parwaiz Referring Unavailable Downs, Parwaiz Consulting Unavailable NagCaron shaw Attending Unavailabl e Trey, Chalon Primary Care Unavailable Downs, Parwaiz Referring Unavailable Downs, Parwaiz Attending Unavailable TurpinLewis Attending Unavailable Trey, Chalon Primary Care Unavailable Trey, Chalon Primary Care Unavailable Holguin, Barrington Referring Unavailable Holguin, Barrington Attending Unavailable Trey, Chalon Attending Unavailable Trey, Chalon Primary Care Unavailable Trey, Chalon Referring Unavailable Diomedes Fitzpatrick Consulting Unavailable Diomedes Fitzpatrick Admitting Unavailable Trey, Chalon Primary Care Unavailable Paulie Majano Attending Unavailable FriendGeovani Attending Unavailable Trey, Chalon Primary Care Unavailable Trey, Chalon Referring Unavailable Provider, Ed Physician Attending Unavailab le Trey, Chalon Primary Care Unavailable Allergies Allergy Classification Reported Allergen(s) Allergy Type Date of Onset Reaction(s) Facility (18 sources) adalimumab; Translations: [ADALIMUMAB] Drug Allergy 1 Itching [facility] (8 sources) Ibuprofen; Translations: [IBUPROFEN] Drug Allergy 1 GI Upset [facility] (1 source) Ibuprofen Drug Allergy [facility] (2 sources) azaTHIOprine; Translations: [AZATHIOPRINE] Drug Allergy 4 GI Upset, Vomiting [facility] (2 sources) Escitalopram; Translations: [ESCITALOPRAM] Drug Allergy 0 Other: See Comments [facility] (1 source) adalimumab Drug Allergy 5 [facility] Medications Current Medications Medication Drug [...] actuat albuterol 0.09 mg/actuat dry powder inhaler (20 sources) beta2-Adrenergic Agonist Start: 05-31-2025 Albuterol Sulfate [...] mg subcutaneously every 8 weeks. Active Benralizumab (6 sources) Start: 025 Benralizumab (Fasenra) 10 mg/0.5 mL syringe Active 30 mg SC every 8 weeks May 29, 2025 12:00am start week 16 of treatment bisacodyl 5 mg delayed release oral tablet (20 sources) Stimulant Laxative Start: 025 take 1 tablet by mouth every other day Bisacodyl 5 mg tablet Active 5 mg PO EVERY OTHER DAY May 31, 2025 12:00am Start: 05-31-2025 take 1 tablet by elzbieta th once daily Bisacodyl 5 mg tablet Active [...] 10MG TABLET NEEDED 0 0 10/02/2004 Active dicyclomine hydrochloride 20 mg oral tablet (12 sources) Anticholinergic Start: 05-31-2025 take 1 tablet by mouth four times daily Dicyclomine 20 mg tablet Active 20 mg PO 4 TIMES DAILY May 31, 2025 12:00am Start: 05-29-2025 End: 05-31-2025 take 1 capsule by mouth twice daily Dicyclomine 10 mg capsule Discontinued 10 mg PO TWICE A DAY May 29, 2025 12:00am May 31, 2025 9:27am take 1 tablet by elzbieta every six hours as needed dicyclomine (BENTYL) 20 mg tablet Take 20 mg by mouth four times a day as needed (abdominal pain). Active escitalopram 5 mg oral tablet (1 source) Serotonin Reuptake Inhibitor take 1 tablet by mouth once daily escitalopram oxalate (LEXAPRO) 5 mg tablet Take 5 mg by mouth once daily. Active esomeprazole 40 mg delayed release oral capsule (6 sources) Proton Pump Inhibitor Start: take 1 capsule by mouth once daily Esomeprazole Magnesium 40 mg capsule,delayed release(DR/EC) Active 40 mg PO DAILY May 31, 2025 12:00am take 1 capsule by mo [facility] twice daily before mealtime esomeprazole (NEXIUM) 40 mg capsule Take 40 mg by mouth two times a day before meals. Active famotidine 20 mg oral tablet (6 sources) Histamine-2 Receptor Antagonist Start: 05-31-2025 take 1 tablet by mouth at bedtime Famotidine (Acid Controller) 20 mg tablet Active 20 mg PO AT BEDTIME May 31, 2025 12:00am End: 08-17-2024 take 1 tablet by mouth once daily at bedtime famotidine (PEPCID) 20 mg tablet Take 20 mg by mouth daily at bedtime. 08/17/2024 Discontinued (Discontinued by Patient) 30 actuat fluticasone furoate 0.2 mg/actuat / vilanterol 0.025 mg/actuat dry powder inhaler (19 sources) Corticosteroid, beta2-Adrenergic Agonist Start: 06-08-2025 Fluticasone Furoate-Vilanterol (Breo Ellipta) 200-25 mcg/dose blister with device Active 1 NMA INHALATION DAILY June 08, 2025 12:00am Start: 04-04-2019 take 1 dose by [...] 1 Inhalation as instructed once daily. Active ibuprofen 600 mg oral tablet (3 sources) Nonsteroidal Anti-inflammatory Drug Start: 06-08-2025 take 1 tablet by mouth every eight hours as needed for pain Ibuprofen 600 mg tablet Active 600 mg PO EVERY 8 HOURS NEEDED as needed for pain 20 0 June 08, 2025 12:00am ipratropium bromide 0.042 mg/actuat metered dose nasal spray (5 sources) Anticholinergic Start: 05-31-2025 Ipratropium [place] 42 mcg (0.06 %) spray,non-aerosol Active 2 NMA INTRANASAL THREE TIMES A DAY as needed for allergy symptoms May 31, 2025 12:00am mesalamine (7 sources) [...] two times a day with meals. Active polyethylene glycol 3350 78249 mg powder for oral solution (20 sources) Osmotic Laxative Start: 05-29-2025 Polyethylene Glycol [...] 13, 2016 8:11am vedolizumab 300 mg injection (6 sources) Integrin Receptor Antagonist Start: 05-29-2025 Vedolizumab (Entyvio ) 300 mg recon soln Active 300 mg IV .COMPLEX May 29, 2025 12:00am 300 mg intravenously q 8 weeks; 300 mg intravenously; every 8 weeks Completed/Discontinued Medications Medication Drug Class(es) Dates Sig (Normalized) Sig (Original) acetaminophen 325 mg / HYDROcodone bitartrate 5 mg oral tablet (20 sources) Opioid Agonist Start: 03-29-2022 End: 05-29-2025 Hydrocodone-Acetamino phen 5-325 mg tablet Discontinued 1 {tbl} PO EVERY 6 HOURS as needed for pain 12 3 March 29, 2022 May 29, 2025 1:04pm Postoperative pain Other acute postprocedural pain Start: 03-29-2022 take 1 tablet by elzbieta th every six hours Hydrocodone-Acetaminophen Active 1 TABLE T PO EVERY 6 HOURS 10 27March 29, 2022 Start: 08-07-2021 End: 10-10-2021 Hydrocodone-Acetaminophen 5- 325 mg tablet Discontinued 1 {tbl} PO EVERY 6 HOURS NEEDED as needed for Pain 12 3 August 07, 2021 October 10, 2021 2:08pm Abdominal pain Unspecified abdominal pain Start: 08-07-2021 End: 10-10-2021 Hydrocodone-Acetaminophen 2. 5-325 mg tablet Discontinued 1 {tbl} PO EVERY 6 HOURS as needed for pain 12 3 August 07, 2021 October 10, 2021 2:08pm [...] Discontinued 1 TABLET PO EVERY 6 HOURS 10 27August 07, 2021 October 10, 2021 1:08pm acetaminophen 325 mg / oxyCODONE hydrochloride 5 mg oral tablet (16 sources) Opioid Agonist Start: 12-02-2019 End: 12-05-2019 [...] December 02, 2019 December 05, 2019 12:09am clotrimazole 10 mg oral lozenge (5 sources) Azole Antifungal Start: 05-31-2025 End: 06-08-2025 Clotrimazole 10 mg alexandra Discontinued 10 mg MUCOUS MEM 4 TIMES DAILY May 31, 2025 12:00am June 08, 2025 11:32pm diphenhydrAMINE hydrochloride 2.5 mg/ml oral solution (5 sources) Histamine-1 Receptor Antagonist Start: 05-31-2025 End: 06-08-2025 take 6.25 mg by mouth twice daily Diphenhydramine Hcl 12.5 mg/5 mL liquid Discontinued 6.25 mg PO TWICE A DAY May 31, 2025 12:00am June 08, 2025 11:33pm fluconazole 100 mg oral tablet (10 sources) Azole Antifungal Start: 05-31-2025 End: 06-08-2025 take 1 tablet by mouth every twenty-four hours Fluconazole 100 mg tablet Discontinued 100 mg PO Q24H May 31, 2025 12:00am June 08, 2025 11:35pm Start: 05-31-2025 End: 06-08-2025 take 1 tablet by mouth once daily Fluconazole 200 mg tablet Discontinued 200 mg PO DAILY 10 10 0 May 31, 2025 12:00am June 08, 2025 11:35pm gabapentin 300 mg oral capsule (1 source) Anti-epileptic Agent End: 08-17-2024 take 1 capsule by mouth three times daily gabapentin (NEURONTIN) 300 mg capsule Take 300 mg by mouth three times daily. 08/17/2024 Discontinued (Discontinued by Patient) Lidocaine (5 sources) Antiarrhythmic, Amide Local Anesthetic Start: 05-31-2025 End: 06-08-2025 take 1 mL by mouth twice daily Lidocaine Hcl (Lidocaine Viscous) 2 % solution Discontinued 2.5 mL PO TWICE A DAY May 31, 2025 12:00am June 08, 2025 11:36pm Start: 05-31-2025 take 1 mL by mouth twice daily Lidocaine Hcl (Lidocaine Viscous) 2 % solution Active 2.5 mL PO TWICE A DAY May 31, 2025 12:00am meloxicam 15 mg oral tablet (1 source) Nonsteroidal Anti-inflammatory Drug Start: 07-08-2018 End: 08-17-2024 take 1 tablet by mouth once daily at mealtime meloxicam (MOBIC) 15 mg tablet Take 1 tablet by mouth daily with food. 30 tablet 07/08/2018 08/17/2024 Discontinued (Discontinued by Patient) Mesalamine 400 mg Capsule,Delayed Release(Dr/Ec) (10 sources) Start: 04-19-2021 End: 05-29-2025 Mesalamine 400 mg Capsule,Delayed Release(Dr/Ec) Discontinued 2400 mg PO DAILY April 19, 2021 12:00am May 29, 2025 1:13pm Crohns Start: 04-19-2021 Mesalamine 400 mg Capsule,Delayed Release(Dr/Ec) Active 2400 mg PO DAILY April 19, 2021 12:00am Crohns Start: 04-19-2021 Mesalamine 400 mg Capsule,Delayed Release(Dr/Ec) Active 2400 mg PO DAILY April 19, 2021 12:00am Mesalamine 400 mg capsule,delayed release(DR/EC) (6 sources) Start: 05-29-2025 End: 05-31-2025 Mesalamine 400 mg capsule,delayed release(DR/EC) Discontinued 2400 mg PO DAILY May 29, 2025 1:04pm May 31, 2025 9:30am Crohns Start: 05-29-2025 Mesalamine 400 mg capsule,delayed release(DR/EC) Active 2400 mg PO DAILY May 29, 2025 1:04pm Crohns nystatin [id number] unt/ml oral suspension (5 sources) Polyene Antifungal Start: 05-29-2025 End: 06-05-2025 Nystatin 100,000 unit/mL suspension Discontinued [id number] U BUCCAL .qid 250 7 0 May 29, 2025 12:00am June 04, 2025 12:00am June 05, 2025 12:09am By mouth 4 times daily; swish in the mouth and retain for as long as possible (several minutes) before swallowing- once symptoms resolve continue to use for 48 hours omeprazole 40 mg delayed release oral capsule (17 sources) Proton Pump Inhibitor Start: 04-19-2021 End: [...] 12-14-2019 Episodic Acute and unspecified renal failure (17 sources) Injury of kidney; Translations: [Acute kidney failure, unspecified] Onset: 4 04-19-2021 Episodic Anxiety disorders (15 sources) Anxiety; Translations: [Anxiety disorder, unspecified] Onset: 4 10-20-2022 Chronic Asthma (20 sources) Asthma; Translations: [Unspecified asthma, uncomplicated] Onset: 6 Resolved: 6 11-30-2019 Chronic E Codes: Adverse effects of medical drugs (6 sources) Adverse reaction to drug; Translations: [Adverse effect of unspecified drugs, medicaments and biological substances, initial encounter] Onset: 5 06-08-2025 Episodic Esophageal disorders (20 sources) Gastroesophageal reflux disease; Translations: [Gastro-esophageal reflux disease without esophagitis] Onset: 6 12-02-2019 Chronic Esophageal disorders (3 sources) Disease of esophagus, unspecified; Translations: [Disease of esophagus, unspecified] Onset: 2 Episodic External cause codes: Natural/environment (2 sources) Bitten by dog, subsequent encounter; Translations: [Bitten by dog, initial encounter] Onset: 8 Headache; including migraine (17 sources) Headache; Translations: [Headache] Onset: 4 12-02-2019 Episodic Malaise and fatigue (9 sources) Asthenia; Translations: [Weakness] Onset: 5 06-08-2025 Episodic Mycoses (16 sources) Candidiasis of mouth; Translations: [Candidal stomatitis] Onset: 5 05-29-2025 Episodic Open wounds of extremities (20 sources) Open bite of right forearm, subsequent encounter; Translations: [Laceration without foreign body of right forearm, initial encounter] Onset: 8 01-03-2022 Episodic Other circulatory disease (6 sources) Elevated blood pressure; Translations: [Elevated blood-pressure reading, without diagnosis of hypertension] 06-08-2025 Episodic Other connective tissue disease (6 sources) Foot pain; Translations: [Pain in right foot] 06-08-2025 Episodic Other connective tissue disease (2 sources) Pain in right foot; Translations: [Pain in right foot] Onset: 5 Episodic Other connective tissue disease (2 sources) Pain in left foot; Translations: [Pain in left foot] Onset: 5 Episodic Other gastrointestinal disorders (17 sources) Bowel spasm; Translations: [Irritable bowel syndrome without diarrhea] Onset: 4 12-02-2019 Chronic Other gastrointestinal disorders (20 sources) Epiploic appendagitis; Translations: [Other specified diseases of intestine] Onset: 4 08-07-2021 Episodic Other gastrointestinal disorders (20 sources) History of Crohns disease; Translations: [Personal history of other diseases of the digestive system] Onset: 4 12-03-2019 Episodic Other gastrointestinal disorders (17 sources) Constipation; Translations: [Constipation, unspecified] Onset: 4 12-03-2019 Episodic Other gastrointestinal disorders (2 sources) Personal history of other diseases of the digestive system; Translations: [Personal history of other diseases of the digestive system] Onset: 5 Episodic Other injuries and conditions due to external causes (18 sources) Obstruction of esophagus; Translations: [Food in esophagus causing other injury, initial encounter] 03-08-2025 Episodic Other injuries and conditions due to external causes (1 source) Food in esophagus causing other injury, initial encounter; Translations: [Food in esophagus causing other injury, initial encounter] Onset: 5 Episodic Other lower respiratory disease (17 sources) Dyspnea; Translations: [Dyspnea, unspecified] Onset: 4 [...] 8 08-29-2018 Chronic Other nervous system disorders (6 sources) Walking disability; Translations: [Difficulty in walking, not elsewhere classified] 06-08-2025 Chronic Other nervous system disorders (4 sources) Neuropathy; Translations: [Polyneuropathy, unspecified] 06-09-2025 Chronic Other nervous system disorders (2 sources) Polyneuropathy, unspecified; Translations: [Polyneuropathy, unspecified] Onset: 5 Chronic Other nervous system disorders (2 sources) Difficulty in walking, not elsewhere classified; Translations: [Difficulty in walking, not elsewhere classified] Onset: 5 Chronic Other nervous system disorders (16 sources) Postoperative pain ; Translations: [Other acute postprocedural pain] Onset: 4 03-29-2022 Episodic Other nutritional; endocrine; and metabolic disorders (1 source) Obese class II; Translations: [Obesity, unspecified] Onset: 8 05-23-2018 Chronic Other nutritional; endocrine; and metabolic disorders (6 sources) Body mass index 30+ - obesity; Translations: [Obesity, unspecified] 06-08-2025 Chronic Other nutritional; endocrine; and metabolic disorders (2 sources) Obesity, unspecified; Translations: [Obesity, unspecified] Onset: 5 Chronic Other nutritional; endocrine; and metabolic disorders (3 sources) Adult failure to thrive syndrome; Translations: [Adult failure to thrive] 06-08-2025 Episodic Other screening for suspected conditions (not mental disorders or infectious disease) (1 source) Patient encounter status; Translations: [Encounter for screening for malignant neoplasm of colon] 08-17-2024 Episodic Other upper respiratory infections (1 source) Acute pharyngitis, unspecified; Translations: [Acute pharyngitis, unspecified] Onset: 5 Episodic Regional enteritis and ulcerative colitis (19 sources) Crohn's disease; Translations: [Crohn's disease, unspecified, [...] Test Name Value Interpretation Reference Range Facility Discharge Instructionon 05-25 Discharge Instruction [facility] Medical Records Department [address] [place] [address] Instructions for Home/Discharge Instructions 06/10/25 1030 MR#: [id number] Acct: [id number] Name: LIBRADO GUILLEN Rep #: [id number] : 1945 79 From: Paulie Majano MD PCP: Dr. Jaycob Yang MD Status:ADM OVI Discharge Instructions DC O2, CPAP, BIPAP needs Home O2 Discharge instructions: No Dressing / Incision Discharge Activity: Return to Normal Activity Weight Bearing Status: Weight bearing as tolerated Dressing / Incision Call your doctor if you observe: Fever of 101 or Higher, Coldness, Increased Pain, Numbness or Tingling, Change in Color, Inability to urinate, Inability to have a bowel movement, Shortness of breath, Dizziness, Fainting spells, Swelling in the ankles, Chest pain, Prolonged hiccupping, Increased palpitations (irregular heartbeat) and Calf discomfort Follow Up Care When: IN 2 WEEKS Test Results: Test results from this visit will be discussed in further detail at your follow-up appointment, if applicable. Discharge Plan Admission Admit Date/Time: 06/08/25 22:03 Primary Reason for Your Visit: Neuropathy Attending Provider: Paulie Majano Primary Care Provider: Jaycob Yang Consulting Providers: Diomedes Fitzpatrick Instructions Additional Instructions / Restrictions: Patient states he has follow-up appointment with neurologist in [facility]. Outpatient physical therapy recommended Discharge Orders/Prescriptions Prescriptions: New ibuprofen 600 mg tablet 600 mg PO Q8H PRN PRN (Reason: pain) Qty: 20 0RF Continued Fasenra 10 mg/0.5 mL syringe 30 mg subcut Q8W Rx Instructions: start week 16 of treatment Entyvio 300 mg recon soln 300 mg IV .COMPLEX Rx Instructions: 300 mg intravenously q 8 weeks; 300 mg intravenously; every 8 weeks polyethylene glycol 3350 [Miralax] 17 gram/dose powder 4 g PO ONCE fluticasone furoate-vilanterol [Breo Ellipta] 200-25 mcg/dose blister with device 1 inh inhalation DAILY ipratropium bromide 42 mcg (0.06 %) spray,non-aerosol 2 spray INTRANASAL TID PRN (Reason: allergy symptoms) albuterol sulfate 90 mcg/actuation aerosol powdr breath activated 2 inh inhalation Q4H PRN (Reason: shortness of breath) prednisone 1 mg tablet 4 mg PO DAILY dicyclomine 20 mg tablet 20 mg PO 4X/DAY famotidine [Acid Controller] 20 mg tablet 20 mg PO QHS esomeprazole magnesium 40 mg capsule,delayed release(DR/EC) 40 mg PO DAILY bisacodyl 5 mg tablet 5 mg PO QODAY Referrals / Follow Up: Jaycob Yang MD [Primary Care Provider] - Within 2 Weeks Clemente Chadwick MD [Non-Staff -Ordering Privileges] - Within 2 Weeks Disposition Disposition (needs filled in before D/C Order can be placed): Home, Self Care 06/10/25 1132 Paulie Majano MD CC: Dr. Jaycob Yang MD; Dr. Diomedes Fitzpatrick DO Signed Normal [facility] Phosphoruson 06-10-2025 Phosphate [Mass/Vol] 3.2 mg/dL Normal 2.7-4.5 [facility] Comment on above: Performed By: #### L 501.2300, L500.4050, L500.4100, L100.0100 #### [facility] [address] [place], [address] Absolute lymphocyte countOrd ered By: Diomedes Mota on 06-09-2025 Lymphocytes Auto (Unsp spec) [#/Vol] 1.80 10*3/uL 0.83-4.51 [facility] Absolute neutrophil countOrd ered By: Diomedes Mota on 06-09-2025 Neutrophils (Bld) [#/Vol] 5.5 10*3/uL 2.0-7.7 [facility] Anion gap in Serum or Plasma Ordered By: Diomedes Mota on 06-09-2025 Anion gap [Moles/Vol] 8 mmol/L 5- [facility] Automated lymphocyte count a s percentage of total leukocytesOrdered By: Diomedes Moat on 06-09-2025 Lymphocytes/100 WBC Auto (Unsp spec) 22.0 % - [facility] BUN/creatinine ratioOrdered By: Diomedes Mota on 06-09-2025 Urea nitrogen/Creatinine [Mass ratio] 17.3 mg/mg - [facility] Basophil percentageOrdered B y: Diomedes Mota on 06-09-2025 Basophils/100 WBC (Bld) 0.2 % 0- [facility] Bilirubin, totalOrdered By: Diomedes Mota on 06-09-2025 Bilirubin [Mass/Vol] 0.35 mg/dL 0.00-1.30 [facility] CBC W/Diff, Automatedon 05-25 Absolute Lymph 1.80 X10 3/uL Normal 0.83-4.51 [facility] Comment on above: Performed By: #### L 501.2300, L500.4050, L500.4100, L100.0100 #### [facility] [address] [place], [address] Absolute Neut 5.5 X10 3/uL Normal 2.0-7.7 [facility] Comment on above: Performed By: #### L 501.2300, L500.4050, L500.4100, L100.0100 #### [facility] [address] [place], [address] Basophils/100 WBC (Bld) 0.2 % Normal 0-1 [facility] Comment on above: Performed By: #### L 501.2300, L500.4050, L500.4100, L100.0100 #### [facility] [address] [place], [address] Eosinophils/100 WBC (Bld) 0.0 % Normal 0-5 [facility] Comment on above: Performed By: #### L 501.2300, L500.4050, L500.4100, L100.0100 #### [facility] [address] [place], [address] Erythrocyte distribution width (RBC) [Ratio] 13.5 % Normal 11.6-14.6 [facility] Comment on above: Performed By: #### L 501.2300, L500.4050, L500.4100, L100.0100 #### [facility] [address] [place], [address] Hematocrit (Bld) [Volume fraction] 35.8 % Low 40-54 [facility] Comment on above: Performed By: #### L 501.2300, L500.4050, L500.4100, L100.0100 #### [facility] [address] [place], [address] Hemoglobin (Bld) [Mass/Vol] 12.0 g/dL Low 13.0-16.5 [facility] Comment on above: Performed By: #### L 501.2300, L500.4050, L500.4100, L100.0100 #### [facility] [address] [place], [address] IG% 1.000 High 0.0-0.9 [facility] Comment on above: Result Comment: IG% - Immature Granulocytes (promyelocytes, myelocytes and metamyelocytes) > 1% indicates that a LEFT SHIFT is Present. Performed By: #### L 501.2300, L500.4050, L500.4100, L100.0100 #### [facility] [address] [place], [address] Lymphocytes/100 WBC (Bld) 22.0 % Normal 19-41 [facility] Comment on above: Performed By: #### L 501.2300, L500.4050, L500.4100, L100.0100 #### [facility] [address] [place], [address] MCH (RBC) [Entitic mass] 31.6 pg Normal 27.0-32.0 [facility] Comment on above: Performed By: #### L 501.2300, L500.4050, L500.4100, L100.0100 #### [facility] [address] [place], [address] MCHC (RBC) [Mass/Vol] 33.5 g/dL Normal 32-36 [facility] Comment on above: Performed By: #### L 501.2300, L500.4050, L500.4100, L100.0100 #### [facility] [address] [place], [address] MCV (RBC) [Entitic vol] 94.2 fL High 80-94 [facility] Comment on above: Performed By: #### L 501.2300, L500.4050, L500.4100, L100.0100 #### [facility] [address] [place], [address] Monocytes/100 WBC (Bld) 10.4 % High 0-10 [facility] Comment on above: Performed By: #### L 501.2300, L500.4050, L500.4100, L100.0100 #### [facility] [address] [place], [address] Neutrophils/100 WBC (Bld) 66.4 % Normal 47-70 [facility] Comment on above: Performed By: #### L 501.2300, L500.4050, L500.4100, L100.0100 #### [facility] [address] [place], [address] Nucleated RBC (Bld) [#/Vol] 0 10*3/uL Normal 0-5 [facility] Comment on above: Performed By: #### L 501.2300, L500.4050, L500.4100, L100.0100 #### [facility] [address] [place], [address] Platelet mean volume (Bld) [Entitic vol] 9.3 fL Normal 6.2-12.0 [facility] Comment on above: Performed By: #### L 501.2300, L500.4050, L500.4100, L100.0100 #### [facility] [address] [place], [address] Platelets (Bld) [#/Vol] 173 10*3/uL Normal 150-450 [facility] Comment on above: Performed By: #### L 501.2300, L500.4050, L500.4100, L100.0100 #### [facility] [address] [place], [address] RBC (Bld) [#/Vol] 3.80 10*6/uL Low 4.6-6.2 [facility] Comment on above: Performed By: #### L 501.2300, L500.4050, L500.4100, L100.0100 #### [facility] [address] [place], [address] RDW SD 46.1 fl High 35.1-43.9 [facility] Comment on above: Performed By: #### L 501.2300, L500.4050, L500.4100, L100.0100 #### [facility] [address] [place], [address] WBC (Bld) [#/Vol] 8.2 10*3/uL Normal 4.4-11.0 [facility] Comment on above: Performed By: #### L 501.2300, L500.4050, L500.4100, L100.0100 #### [facility] [address] [place], [address] Calculated very low density lipoprotein (VLDL) cholesterol measurementOrdered By: Diomedes Mota on 06-09-2025 Calculated very low density lipoprotein (VLDL) cholesterol measurement 25 mg/dL 5-40 [facility] Carbon dioxide, total [Moles /volume] in Central venous bloodOrdered By: Diomedes Mota on 06-09-2025 CO2 [Moles/Vol] 24.7 mmol/L 21.0-32.0 [facility] Chloride assayOrdered By: Maximilian Mota on 06-09-2025 Chloride [Moles/Vol] 107 mmol/L 98-108 [facility] Comprehensive Metabolic Prof ilon 06-09-2025 Albumin [Mass/Vol] 3.4 g/dL Normal 3.4-4.8 [facility] Comment on above: Performed By: #### L 501.2300, L500.4050, L500.4100, L100.0100 #### [facility] [address] [place], [address] Albumin/Globulin [Mass ratio] 1.5 {ratio} Normal 0.9-2.4 [facility] Comment on above: Performed By: #### L 501.2300, L500.4050, L500.4100, L100.0100 #### [facility] [address] [place], [address] ALK PHOS 77 U/L Normal 40-129 [facility] Comment on above: Performed By: #### L 501.2300, L500.4050, L500.4100, L100.0100 #### [facility] [address] [place], [address] ALT [Catalytic activity/Vol] 69 U/L High <=46 [facility] Comment on above: Performed By: #### L 501.2300, L500.4050, L500.4100, L100.0100 #### [facility] [address] [place], [address] AST [Catalytic activity/Vol] 33 U/L Normal <=37 [facility] Comment on above: Performed By: #### L 501.2300, L500.4050, L500.4100, L100.0100 #### [facility] [address] [place], [address] Bilirubin [Mass/Vol] 0.35 mg/dL Normal 0.00-1.30 [facility] Comment on above: Performed By: #### L 501.2300, L500.4050, L500.4100, L100.0100 #### [facility] [address] [place], [address] BUN/CRE 17.3 RATIO Normal 10-20 [facility] Comment on above: Performed By: #### L 501.2300, L500.4050, L500.4100, L100.0100 #### [facility] [address] [place], [address] Calcium [Mass/Vol] 8.7 mg/dL Normal 7.6-11.0 [facility] Comment on above: Performed By: #### L 501.2300, L500.4050, L500.4100, L100.0100 #### [facility] [address] [place], [address] Chloride [Moles/Vol] 107 mmol/L Normal 98-108 [facility] Comment on above: Performed By: #### L 501.2300, L500.4050, L500.4100, L100.0100 #### [facility] [address] [place], [address] CO2 [Moles/Vol] 24.7 mmol/L Normal 21.0-32.0 [facility] Comment on above: Performed By: #### L 501.2300, L500.4050, L500.4100, L100.0100 #### [facility] [address] [place], [address] Creatinine [Mass/Vol] 1.04 mg/dL Normal 0.70-1.20 [facility] Comment on above: Performed By: #### L 501.2300, L500.4050, L500.4100, L100.0100 #### [facility] [address] [place], [address] ECRCL 74.61 ml/min Normal 50-250 [facility] Comment on above: Performed By: #### L 501.2300, L500.4050, L500.4100, L100.0100 #### [facility] [address] [place], [address] GAP 8 Normal 5-15 [facility] Comment on above: Performed By: #### L 501.2300, L500.4050, L500.4100, L100.0100 #### [facility] [address] [place], [address] GFR/1.73 sq M.predicted among non-blacks MDRD (S/P/Bld) [Vol rate/Area] 74 mL/min/{1.73_m2} Normal >60 [facility] Comment on above: Result Comment: mL/m in/1.73m2 CKD-EPI Creatinine Equation (2020) Performed By: #### L 501.2300, L500.4050, L500.4100, L100.0100 #### [facility] [address] [place], [address] Globulin (S) [Mass/Vol] 2.3 g/dL Normal 2.2-4.2 [facility] Comment on above: Performed By: #### L 501.2300, L500.4050, L500.4100, L100.0100 #### [facility] [address] [place], [address] Glucose [Mass/Vol] 120 mg/dL High 70-99 [facility] Comment on above: Performed By: #### L 501.2300, L500.4050, L500.4100, L100.0100 #### [facility] [address] [place], [address] Potassium [Moles/Vol] 3.9 mmol/L Normal 3.3-5.1 [facility] Comment on above: Performed By: #### L 501.2300, L500.4050, L500.4100, L100.0100 #### [facility] [address] [place], [address] Sodium [Moles/Vol] 140 mmol/L Normal 133-145 [facility] Comment on above: Performed By: #### L 501.2300, L500.4050, L500.4100, L100.0100 #### [facility] [address] [place], [address] T PROT 5.8 g/dL Low 5.9-8.4 [facility] Comment on above: Performed By: #### L 501.2300, L500.4050, L500.4100, L100.0100 #### [facility] [address] [place], [address] Urea nitrogen [Mass/Vol] 18 mg/dL Normal 4-19 [facility] Comment on above: Performed By: #### L 501.2300, L500.4050, L500.4100, L100.0100 #### [facility] [address] [place], [address] Eosinophil percentageOrdered By: Diomedes Mota on 06-09-2025 Eosinophils/100 WBC (Bld) 0.0 % 0-5 [facility] Erythrocyte distribution wid th ratioOrdered By: Diomedes Mota on 06-09-2025 Erythrocyte distribution width (RBC) [Ratio] 13.5 % 11.6-14.6 [facility] Erythrocyte distribution wid th standard deviationOrdered By: Diomedes Mota on 06-09-2025 Erythrocyte distribution width (RBC) [Ratio] 46.1 fl High 35.1-43.9 [facility] Folate [Moles/volume] in Ser um or PlasmaOrdered By: Diomedes Mota on 06-09-2025 Folate [Moles/Vol] 9.88 ng/mL 4.60-34.80 [facility] Comment on above: Hemolysis, Results w ill be affected, Requires Recollection. Folates,Serum (Folic Acid)on 06-09-2025 FOLATES,SERUM 9.88 ng/mL Normal 4.60-34.80 [facility] Comment on above: Result Comment: Hemo lysis, Results will be affected, Requires Recollection. Performed By: #### L 506.0200, L501.5200 #### [facility] [address] [place], [place], [address] Glomerular filtration rate ( GFR) estimation/1.73 sq m using serum, plasma, or whole bOrdered By: Diomedes Mota on 06-09-2025 GFR/1.73 sq M.predicted among non-blacks MDRD (S/P/Bld) [Vol rate/Area] 74 mL/min/{1.73_m2} >60 [facility] Comment on above: mL/min/1.73m2 CKD-EP I Creatinine Equation (2020) Hematocrit Auto (Bld) [Volum e fraction]Ordered By: Diomedes Mota on 06-09-2025 Hematocrit (Bld) [Volume fraction] 35.8 % Low 40-54 [facility] Hemoglobin A1con 06-09-2025 HbA1c (Bld) [Mass fraction] 5.4 % Normal <=5.6 [facility] Comment on above: Result Comment: Norm al < 5.7 % Prediabetic 5.7 - 6.4 % Diabetic >or= 6.5 % Please note range changes. Performed By: #### L 503.0106, L501.9520, L501.9925 #### [facility] [address] [place], [place], [id number] Hemoglobin measurementOrdere d By: Diomedes Mota on 06-09-2025 Hemoglobin (Bld) [Mass/Vol] 12.0 g/dL Low 13.0-16.5 [facility] Immature granulocytes/100 WB C Auto (Bld)Ordered By: Diomedes Mota on 06-09-2025 Immature granulocytes/100 WBC (Bld) 1.000 % High 0.0-0.9 [facility] Comment on above: IG% - Immature Granu locytes (promyelocytes, myelocytes and metamyelocytes) > 1% indicates that a LEFT SHIFT is Present. LDL calc ser/plasOrdered By: Diomedes Mota on 06-09-2025 Cholesterol in LDL [Mass/Vol] 98 mg/dL [facility] Comment on above: Ycuqtxuhda=107-383 m g/dL & Higher Bgyy=673 mg/dL or greater Laboratory - Chemistry and C hemistry - challengeOrdered By: Diomedes Mota on 06-09-2025 AST [Catalytic activity/Vol] 33 U/L <38 [facility] Lipid Profileon 06-09-2025 CHOL:HDL 4.73 Normal [facility] Comment on above: Performed By: #### L 501.2300, L500.4050, L500.4100, L100.0100 #### [facility] [address] [place], [place], [id number] Cholesterol [Mass/Vol] 156 mg/dL Normal <=200 [facility] Comment on above: Result Comment: Chol esterol level, Desirable <200 mg/dL Borderline high cholesterol 200-239 mg/dL High cholesterol >=240 mg/dL Recommendations of the NCEP Adult Treatment Panel for the following risk-cutoff thresholds for the [place] population. Performed By: #### L 501.2300, L500.4050, L500.4100, L100.0100 #### [facility] [address] [place], [address] Cholesterol in HDL [Mass/Vol] 33 mg/dL Low [facility] Comment on above: Result Comment: Mikki onal Cholesterol Education Program (NCEP) guidelines: <40 mg/dL: Low HDL-cholesterol (major risk factor for CHD) >= 60 mg/dL: High HDL-cholesterol (negative risk factor for CHD) HDL-cholesterol is affected by a number of factors, e.g. smoking, exercise, hormones, sex and age. Performed By: #### L 501.2300, L500.4050, L500.4100, L100.0100 #### [facility] [address] [place], [address] Cholesterol in LDL [Mass/Vol] 98 mg/dL Normal [facility] Comment on above: Result Comment: Bord rvxhaq=432-234 mg/dL Higher Pkxm=321 mg/dL or greater Performed By: #### L 501.2300, L500.4050, L500.4100, L100.0100 #### [facility] [address] [place], [address] Cholesterol in VLDL [Mass/Vol] 25 mg/dL Normal 5-40 [facility] Comment on above: Performed By: #### L 501.2300, L500.4050, L500.4100, L100.0100 #### [facility] [address] [place], [address] Triglyceride [Mass/Vol] 125 mg/dL Normal [facility] Comment on above: Result Comment: The drugs N-Acetylcysteine and Metamizole may falsely depress this assay. Normal range: <150 mg/dL Borderline High: 150-199 mg/dL High: 200-499 mg/dL Very High: >500 mg/dL Performed By: #### L 501.2300, L500.4050, L500.4100, L100.0100 #### [facility] [address] [place], [place], [id number] MCV (mean corpuscular volume ) determinationOrdered By: Diomedes Mota on 06-09-2025 MCV (RBC) [Entitic vol] 94.2 fL High 80-94 [facility] Mean corpuscular hemoglobin (MCH) determinationOrdered By: Diomedes Mota on 06-09-2025 MCH (RBC) [Entitic mass] 31.6 pg 27.0-32.0 [facility] Mean corpuscular hemoglobin concentration (MCHC) determinationOrdered By: Diomedes Mota on 06-09-2025 MCHC (RBC) [Mass/Vol] 33.5 g/dL 32-36 [facility] Mean platelet volume determi nationOrdered By: Diomedes Mota on 06-09-2025 Platelet mean volume (Bld) [Entitic vol] 9.3 fL 6.2-12.0 [facility] Monocyte percentageOrdered B y: Diomedes Mota on 06-09-2025 Monocytes/100 WBC (Bld) 10.4 % High 0-10 [facility] Neutrophil percentageOrdered By: Diomedes Mota on 06-09-2025 Neutrophils/100 WBC (Bld) 66.4 % 47-70 [facility] Nucleated red blood cell per centageOrdered By: Diomedes Mota on 06-09-2025 Nucleated RBC/100 WBC (Bld) [Ratio] 0 % 0-5 [facility] Phosphoruson 06-09-2025 Phosphate [Mass/Vol] 3.7 mg/dL Normal 2.7-4.5 [facility] Comment on above: Performed By: #### L 501.2300, L500.4050, L500.4100, L100.0100 #### [facility] [address] [place], [address] Platelet countOrdered By: Maximilian Mota on 06-09-2025 Platelets (Bld) [#/Vol] 173 10*3/uL 150-450 [facility] Potassium measurement (mass/ volume)Ordered By: Diomedes Mota on 06-09-2025 Potassium (Unsp spec) [Mass/Vol] 3.9 mmol/L 3.3-5.1 [facility] RBC Auto (Bld) [#/Vol]Ordere d By: Diomedes Mota on 06-09-2025 RBC (Bld) [#/Vol] 3.80 10*6/uL Low 4.6-6.2 [facility] Screening total cholesterol/ high density lipoprotein (HDL) cholesterol ratioOrdered By: Diomedes Mota on 06-09-2025 Cholesterol.total/Cho lesterol in HDL [Mass ratio] 4.73 {ratio} [facility] Serum creatinine measurement (mass/volume)Ordered By: Diomedes Mota on 06-09-2025 Creatinine [Mass/Vol] 1.04 mg/dL 0.70-1.20 [facility] Serum globulin measurementOr dered By: Diomedes Mota on 06-09-2025 Globulin (S) [Mass/Vol] 2.3 g/dL 2.2-4.2 [facility] Serum glucose measurement (m ass/volume)Ordered By: Diomedes Mota on 06-09-2025 Glucose [Mass/Vol] 120 mg/dL High 70-99 [facility] Serum or plasma alanine alston otransferase (ALT) measurementOrdered By: Diomedes Mota on 06-09-2025 ALT [Catalytic activity/Vol] 69 U/L High <47 [facility] Serum or plasma albumin rell urement (mass/volume)Ordered By: Diomedes Mota on 06-09-2025 Albumin [Mass/Vol] 3.4 g/dL 3.4-4.8 [facility] Serum or plasma albumin/glob ulin mass ratioOrdered By: Diomedes Mota on 06-09-2025 Albumin/Globulin [Mass ratio] 1.5 {ratio} 0.9-2.4 [facility] Serum or plasma alkaline carlin sphatase measurementOrdered By: Diomedes Mota on 06-09-2025 ALP [Catalytic activity/Vol] 77 U/L 40-129 [facility] Serum or plasma calcium rell urement (mass/volume)Ordered By: Diomedes Mota on 06-09-2025 Calcium [Mass/Vol] 8.7 mg/dL 7.6-11.0 [facility] Serum or plasma cholesterol in HDL measurement (mass/volume)Ordered By: Diomedes Mota on 06-09-2025 Cholesterol in HDL [Mass/Vol] 33 mg/dL Low >40 [facility] Comment on above: National Cholesterol Education Program (NCEP) guidelines:<40 mg/dL: Low HDL-cholesterol (major risk factor for CHD)>= 60 mg/dL: High HDL-cholesterol (negative risk factor for CHD)HDL-cholesterol is affected by a number of factors, e.g. smoking, exercise, hormones, sex and age. Serum or plasma cholesterol measurement (mass/volume)Ordered By: Diomedes Mota on 06-09-2025 Cholesterol [Mass/Vol] 156 mg/dL <201 [facility] Comment on above: Cholesterol level, D esirable <200 mg/dLBorderline high cholesterol 200-239 mg/dLHigh cholesterol >=240 mg/dLRecommendations of the NCEP Adult Treatment Panel for the following risk-cutoff thresholds for the [place] population. Serum or plasma urea nitroge n measurement (mass/volume)Ordered By: Diomedes Mota on 06-09-2025 Urea nitrogen [Mass/Vol] 18 mg/dL 4-19 [facility] Sodium levelOrdered By: Jeremiah Mota on 06-09-2025 Sodium [Moles/Vol] 140 mmol/L 133-145 [facility] Thyroid Stim Hormone (TSH)on 06-09-2025 TSH 1.690 uIU/mL Normal 0.300-4.20 0 [facility] Comment on above: Performed By: #### L 503.0106, L501.9520, L501.9985 #### [facility] [place], [address] Total proteinOrdered By: Vicente Mota on 06-09-2025 Protein [Mass/Vol] 5.8 g/dL Low 5.9-8.4 [facility] Triglycerides measurementOrd ered By: Diomedes Mota on 06-09-2025 Triglyceride [Mass/Vol] 125 mg/dL <199 [facility] Comment on above: The drugs N-Acetylcy steine and Metamizole may falsely depress this assay. Normal range: <150 mg/dLBorderline High: 150-199 mg/dLHigh: 200-499 mg/dLVery High: >500 mg/dL Vitamin B12on 06-09-2025 Cobalamin (Vitamin B12) [Mass/Vol] 515 pg/mL Normal 180-914 [facility] Comment on above: Performed By: #### L 503.0106, L501.9520, L501.9985 #### [facility] [address] [place], [place], [id number] White blood cell (WBC) count Ordered By: Diomedes Mota on 06-09-2025 WBC (Bld) [#/Vol] 8.2 10*3/uL 4.4-11.0 [facility] Absolute lymphocyte countOrd ered By: Barrington Sanchez on 06-08-2025 Lymphocytes Auto (Unsp spec) [#/Vol] 1.48 10*3/uL 0.83-4.51 [facility] Absolute neutrophil countOrd ered By: Barrington Sanchez on 06-08-2025 Neutrophils (Bld) [#/Vol] 7.6 10*3/uL 2.0-7.7 [facility] Anion gap in Serum or Plasma Ordered By: Barrington Sanchez on 06-08-2025 Anion gap [Moles/Vol] 11 mmol/L 04-08 [facility] Automated lymphocyte count a s percentage of total leukocytesOrdered By: Barrington Sanchez on 06-08-2025 Lymphocytes/100 WBC Auto (Unsp spec) 14.7 % Low 19-41 [facility] BUN/creatinine ratioOrdered By: Barrington Sanchez on 06-08-2025 Urea nitrogen/Creatinine [Mass ratio] 17.3 mg/mg - [facility] Basic Metabolic Profile (BMP )on 06-08-2025 BUN/CRE 17.3 RATIO Normal - [facility] Comment on above: Performed By: #### L 501.2300, L500.4050, L500.4100, L100.0100 #### [facility] [address] [place], [address] Calcium [Mass/Vol] 9.2 mg/dL Normal 7.6-11.0 [facility] Comment on above: Performed By: #### L 501.2300, L500.4050, L500.4100, L100.0100 #### [facility] [address] [place], [address] Chloride [Moles/Vol] 107 mmol/L Normal 98-108 [facility] Comment on above: Performed By: #### L 501.2300, L500.4050, L500.4100, L100.0100 #### [facility] [address] [place], [address] CO2 [Moles/Vol] 21.9 mmol/L Normal 21.0-32.0 [facility] Comment on above: Performed By: #### L 501.2300, L500.4050, L500.4100, L100.0100 #### [facility] [address] [place], [address] Creatinine [Mass/Vol] 1.00 mg/dL Normal 0.70-1.20 [facility] Comment on above: Performed By: #### L 501.2300, L500.4050, L500.4100, L100.0100 #### [facility] [address] [place], [address] ECRCL 78.09 ml/min Normal 50-250 [facility] Comment on above: Performed By: #### L 501.2300, L500.4050, L500.4100, L100.0100 #### [facility] [address] [place], [address] GAP 11 Normal 5-15 [facility] Comment on above: Performed By: #### L 501.2300, L500.4050, L500.4100, L100.0100 #### [facility] [address] [place], [address] GFR/1.73 sq M.predicted among non-blacks MDRD (S/P/Bld) [Vol rate/Area] 78 mL/min/{1.73_m2} Normal >60 [facility] Comment on above: Result Comment: mL/m in/1.73m2 CKD-EPI Creatinine Equation (2020) Performed By: #### L 501.2300, L500.4050, L500.4100, L100.0100 #### [facility] [address] [place], [address] Glucose [Mass/Vol] 90 mg/dL Normal 70-99 [facility] Comment on above: Performed By: #### L 501.2300, L500.4050, L500.4100, L100.0100 #### [facility] [address] [place], [address] Potassium [Moles/Vol] 4.2 mmol/L Normal 3.3-5.1 [facility] Comment on above: Result Comment: Hemo lysis present, Results??could be affected. ?? Performed By: #### L 501.2300, L500.4050, L500.4100, L100.0100 #### [facility] [address] [place], [address] Sodium [Moles/Vol] 140 mmol/L Normal 133-145 [facility] Comment on above: Performed By: #### L 501.2300, L500.4050, L500.4100, L100.0100 #### [facility] [address] [place], [address] Urea nitrogen [Mass/Vol] 17 mg/dL Normal 4-19 [facility] Comment on above: Performed By: #### L 501.2300, L500.4050, L500.4100, L100.0100 #### [facility] [address] [place], [address] Basophil percentageOrdered B y: Barrington Sanchez on 06-08-2025 Basophils/100 WBC (Bld) 0.4 % 0-1 [facility] Bilirubin Test strip Ql (U)O rdered By: Barrington Sanchez on 06-08-2025 Bilirubin Ql (U) Negative Negative [facility] CBC W/Diff, Automatedon 05-25 Absolute Lymph 1.48 X10 3/uL Normal 0.83-4.51 [facility] Comment on above: Performed By: #### L 501.2300, L500.4050, L500.4100, L100.0100 #### [facility] [address] [place], [address] Absolute Neut 7.6 X10 3/uL Normal 2.0-7.7 [facility] Comment on above: Performed By: #### L 501.2300, L500.4050, L500.4100, L100.0100 #### [facility] [address] [place], [address] Basophils/100 WBC (Bld) 0.4 % Normal 0-1 [facility] Comment on above: Performed By: #### L 501.2300, L500.4050, L500.4100, L100.0100 #### [facility] [address] [place], [address] Eosinophils/100 WBC (Bld) 0.0 % Normal 0-5 [facility] Comment on above: Performed By: #### L 501.2300, L500.4050, L500.4100, L100.0100 #### [facility] [address] [place], [address] Erythrocyte distribution width (RBC) [Ratio] 13.3 % Normal 11.6-14.6 [facility] Comment on above: Performed By: #### L 501.2300, L500.4050, L500.4100, L100.0100 #### [facility] [address] [place], [address] Hematocrit (Bld) [Volume fraction] 38.2 % Low 40-54 [facility] Comment on above: Performed By: #### L 501.2300, L500.4050, L500.4100, L100.0100 #### [facility] [address] [place], [address] Hemoglobin (Bld) [Mass/Vol] 13.3 g/dL Normal 13.0-16.5 [facility] Comment on above: Performed By: #### L 501.2300, L500.4050, L500.4100, L100.0100 #### [facility] [address] [place], [address] IG% 0.800 Normal 0.0-0.9 [facility] Comment on above: Result Comment: IG% - Immature Granulocytes (promyelocytes, myelocytes and metamyelocytes) > 1% indicates that a LEFT SHIFT is Present. Performed By: #### L 501.2300, L500.4050, L500.4100, L100.0100 #### [facility] [address] [place], [address] Lymphocytes/100 WBC (Bld) 14.7 % Low 19-41 [facility] Comment on above: Performed By: #### L 501.2300, L500.4050, L500.4100, L100.0100 #### [facility] [address] [place], [address] MCH (RBC) [Entitic mass] 32.1 pg High 27.0-32.0 [facility] Comment on above: Performed By: #### L 501.2300, L500.4050, L500.4100, L100.0100 #### [facility] [address] [place], [address] MCHC (RBC) [Mass/Vol] 34.8 g/dL Normal 32-36 [facility] Comment on above: Performed By: #### L 501.2300, L500.4050, L500.4100, L100.0100 #### [facility] [address] [place], [address] MCV (RBC) [Entitic vol] 92.3 fL Normal 80-94 [facility] Comment on above: Performed By: #### L 501.2300, L500.4050, L500.4100, L100.0100 #### [facility] [address] [place], [address] Monocytes/100 WBC (Bld) 8.2 % Normal 0-10 [facility] Comment on above: Performed By: #### L 501.2300, L500.4050, L500.4100, L100.0100 #### [facility] [address] [place], [address] Neutrophils/100 WBC (Bld) 75.9 % High 47-70 [facility] Comment on above: Performed By: #### L 501.2300, L500.4050, L500.4100, L100.0100 #### [facility] [address] [place], [address] Nucleated RBC (Bld) [#/Vol] 0 10*3/uL Normal 0-5 [facility] Comment on above: Performed By: #### L 501.2300, L500.4050, L500.4100, L100.0100 #### [facility] [address] [place], [address] Platelet mean volume (Bld) [Entitic vol] 9.2 fL Normal 6.2-12.0 [facility] Comment on above: Performed By: #### L 501.2300, L500.4050, L500.4100, L100.0100 #### [facility] [address] [place], [address] Platelets (Bld) [#/Vol] 191 10*3/uL Normal 150-450 [facility] Comment on above: Performed By: #### L 501.2300, L500.4050, L500.4100, L100.0100 #### [facility] [address] [place], [address] RBC (Bld) [#/Vol] 4.14 10*6/uL Low 4.6-6.2 [facility] Comment on above: Performed By: #### L 501.2300, L500.4050, L500.4100, L100.0100 #### [facility] [address] [place], [address] RDW SD 45.4 fl High 35.1-43.9 [facility] Comment on above: Performed By: #### L 501.2300, L500.4050, L500.4100, L100.0100 #### [facility] [address] [place], [address] WBC (Bld) [#/Vol] 10.0 10*3/uL Normal 4.4-11.0 [facility] Comment on above: Performed By: #### L 501.2300, L500.4050, L500.4100, L100.0100 #### [facility] [address] [place], [address] CPK Total, Creatine Kinaseon 06-08-2025 CPK TOTAL 41 U/L Normal 24-195 [facility] Comment on above: Performed By: #### L 501.2300, L500.4050, L500.4100, L100.0100 #### [facility] [address] [place], [address] CRPon 06-08-2025 C-REACTIVE PROT < 3.00 Normal 0.0-3.0 [facility] Comment on above: Performed By: #### L 501.2300, L500.4050, L500.4100, L100.0100 #### [facility] [address] [place], [address] Carbon dioxide, total [Moles /volume] in Central venous bloodOrdered By: Barrington Sanchez on 06-08-2025 CO2 [Moles/Vol] 21.9 mmol/L 21.0-32.0 [facility] Chloride assayOrdered By: Brit Sanchez on 06-08-2025 Chloride [Moles/Vol] 107 mmol/L 98-108 [facility] Emergency Department Summary on 06-08-2025 Emergency Department Summary [facility] Medical Records Department [address] [place] [address] Emergency Department Summary 06/08/25 MR#: [id number] Acct: [id number] Name: LIBRADO GUILLEN Rep #: [id number] : 1945 79 From: Barrington Sanchez DO PCP: Dr. Jaycob Yang MD Status:ADM OVI Location: [place] [address] HPI History of Present Illness HPI Narrative: Patient presents with bilateral foot pain that has been getting worse over the past 3 weeks. Patient states it is gradually getting worse. Patient states his feet feel like they are . Patient describes the pain as sharp. Patient states it is worse with weightbearing. 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 Patient states he was started on gabapentin. Patient states he took 1 dose of that. Patient states he went home and took a nap. Patient states that when he woke up he felt disoriented and weak. Patient denies any trauma or injury. Chief Complaint: Lower Extremity Injury Onset/Context/Timing Onset: Weeks (3) Context: Gradual Onset Quality of Pain: Sharp Location: Bilateral feet Worsened by: Nothing Relieved by: Nothing Associated Symptoms Associated Symptoms: Positive for Parasthesia; Negative for Weakness or Loss of Funtion [facility] Medical History Zenkers diverticulum BPH (benign prostatic hyperplasia) History of DVT (deep vein thrombosis) GERD (gastroesophageal reflux disease) Former smoker Sleep apnea Chest pain Asthma IBS (irritable bowel syndrome) Crohn's disease Home Medications ???Medication ???Instructions ???Recorded ???Last Taken ???Type benralizumab 10 mg/0.5 mL 30 mg subcut Q8W 05/29/25 04/06/25 History subcutaneous syringe (Fasenra) polyethylene glycol 3350 17 4 g PO [...] mg PO DAILY 05/31/25 05/30/25 Hi story ibuprofen 600 mg tablet 600 mg PO Q8H PRN PRN pain #20 Unknown Rx TABLETS Allergy/AdvReac Type Severity Reaction Status Date / Time adalimumab (From [facility]) Allergy itching Verified 06/08/25 17:43 Family History Mother CHF (congestive heart failure) Father Cancer unsure Surgical History History of colonoscopy ( 06/2021) Hx of cholecystectomy Social History Smoking Status: Former smoker ROS ROS ED Constitutional Constitutional ED: Denies chills or fever(s) Eyes Eyes: Reports blurry vision; Denies diplopia ENT ENT ED: Denies rhinorrhea or sore throat Cardiovascular Cardiovascular: Denies chest pain or palpitations Respiratory/Chest Respiratory/Chest: Denies cough or dyspnea Gastrointestinal Gastrointestinal: Denies nausea or vomiting Genitourinary Genitourinary ED: Denies dysuria or hematuria Musculoskeletal Musculoskeletal: Denies back pain or neck pain Integumentary Denies abscess or rash Neurologic Neurologic: Reports headache(s); Denies weakness Allergic/Immunologic Allergic/Immunologic ED: Denies mouth swelling or urticaria EXAM Physical Exam Const Vital Signs: 06/08/25 17:44 06/08/25 19:40 06/08/25 21:00 Temperature 98 F Temperature Source Oral Pulse Rate 78 78 70 Respiratory Rate 20 H 18 Blood Pressure 135/81 H 119/68 138/70 H Blood Pressure Mean 99 85 92 Pulse Ox 99 96 98 Oxygen Delivery Method Room Air 06/08/25 21:38 Temperature 98.6 F Temperature Source Pulse Rate 70 Respiratory Rate 18 Blood Pressure 138/70 H Blo (more content not included)... Normal [facility] Eosinophil percentageOrdered By: Barrington Sanchez on 06-08-2025 Eosinophils/100 WBC (Bld) 0.0 % 0-5 [facility] Erythrocyte Sed Rateon 06-08 SED RATE 15 mm/hr Normal 0-20 [facility] Comment on above: Performed By: #### L 501.2300, L500.4050, L500.4100, L100.0100 #### [facility] [address] [place], [place], [id number] Erythrocyte distribution wid th ratioOrdered By: Barrington Sanchez on 06-08-2025 Erythrocyte distribution width (RBC) [Ratio] 13.3 % 11.6-14.6 [facility] Erythrocyte distribution wid th standard deviationOrdered By: Barrington Sanchez on 06-08-2025 Erythrocyte distribution width (RBC) [Ratio] 45.4 fl High 35.1-43.9 [facility] Erythrocyte sedimentation ra teOrdered By: Barrington Sanchez on 06-08-2025 ESR (Bld) [Velocity] 15 mm/h 0-20 [facility] Foot min 3 Viewson Foot min 3 Views [facility] [address] [place] [address] Foot min 3 Views MR#: [id number] Acct: [id number] Name: LIBRADO GUILLEN Rep #: [id number] : 1945 M 79 From: Gunnar Rooney MD PCP: Dr. Jaycob Yang MD Status: REG ER Study: Foot min 3 Views Date of Exam: 06/08/25 Exam# [id number] Ordering Dr: Barrington Sanchez DO PROCEDURE: FOOT [...] either foot. Moderate osteoarthritis bilaterally. Reading Location: [facility] CC: Dr. Jaycob Yang MD; Dr. Barrington Sanchez DO Research Soil Scientist: Signed Normal [facility] Foot min 3 Views [facility] [address] [place] [address] Foot min 3 Views MR#: [id number] Acct: [id number] Name: MINDYLIBRADO D Rep #: [id number] : 1945 M 79 From: Gunnar Rooney MD PCP: Dr. Jaycob Yang MD Status: REG ER Study: Foot min 3 Views Date of Exam: 06/08/25 Exam# [id number] Ordering Dr: aBrrington Sanchez DO PROCEDURE: FOOT MIN 3 VIEWS [...] either foot. Moderate osteoarthritis bilaterally. Reading Location: [facility] CC: Dr. Jaycob Yang MD; Dr. Barrington Sanchez DO Research Soil Scientist: Signed Normal [facility] Glomerular filtration rate ( GFR) estimation/1.73 sq m using serum, plasma, or whole bOrdered By: Barrington Sanchez on 06-08-2025 GFR/1.73 sq M.predicted among non-blacks MDRD (S/P/Bld) [Vol rate/Area] 78 mL/min/{1.73_m2} >60 [facility] Comment on above: mL/min/1.73m2 CKD-EP I Creatinine Equation (2020) H AND P Exam - [facility] 06-08-2025 H&P Exam - Hospitalist [facility] Medical Records Department [address] [place] [address] H P Exam - Hospitalist 06/08/25 2138 MR#: [id number] Acct: [id number] Name: LIBRADO GUILLEN Rep #: [id number] : 1945 79 From: Diomedes Fitzpatrick DO PCP: Dr. Jaycob Yang MD Status:ADM OVI Location: [facility] UP605-8 HPI - General General Date of Admission: 06/08/25 Date of Service: 06/08/25 Chief Complaint: Pain in Feet with Inability to Ambulate. 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 Crohn's disease (with B-12 level of 515 pg/mLthis admission); with patient started on gabapentin earlier today, history of DVT, history of Zenker's diverticulum, history of esophageal obstruction due to food impaction, history of epiploic appendagitis, history of cholecystectomy,history of bronchial asthma; on as needed albuterol, BPH, history of IBS; of constipation-type; on polyethylene glycol, history of oral thrush; on fluconazole plus clotrimazole, GERD; on famotidine and esomeprazole and OA; on ibuprofen every 8 hours as needed who presents to [facility] ER complaining of pain in both of his feet with inability to ambulate. Mr. Guillen reports his symptoms began 3 weeks prior to admission with the gradual-onset of progressively worsening bilateral foot pain that is made worse with weight-bearing and walking. He states the pain from his heels up through his arches and into his toes. He denies associated injury to his feet, recent trauma or similar previous episodes. He states he was recently evaluated by his physician at the [facility], started on gabapentin for presumed neuropathic pain in his feet with patient was taking his first dose and then waking up feeling worse with dizziness and disorientation in addition to ongoing unrelenting pain in his feet so he decided to come in for further evaluation and treatment. He was treated with ondansetron IV plus morphine IV in the ER with continued pain and feeling unsafe to go home with patient subsequently requesting admission to the ER physician with called and made to the hospitalist service. He underwent x-rays of both feet in the ER which were negative for acute fracture, dislocation or soft tissue swelling. He also had a CRP less than 3 and an ESR of 15 with no leukocytosis or obvious signs of infection. He admits to nausea and severe bilateral foot pain made worse with activity but not fully relieved by rest. He denies associated fever, chills, vomiting, diarrhea, constipation, abdominal pain, chest pain, palpitations, heart racing, shortness of breath, cough, headache or rash. In the ER he was diagnosed with severe Bilateral Foot Pain; presumably due to Severe Neuropathy with no signs of acute traumatic injury or infection but causing Generalized Weakness with Ambulatory Dysfunction and he was then admitted to the general medical floor under observation status for a stay that is expected to be less than 2 midnights. [facility] Medical History (Updated 06/09/25 @ 04:[address] Diomedes Fitzpatrick, DO) Depression Former smoker CPAP (continuous positive airway pressure) dependence Zenkers diverticulum BPH (benign prostatic hyperplasia) History of DVT (deep vein thrombosis) GERD (gastroesophageal reflux disease) Former smoker Sleep apnea Chest pain Asthma IBS (irritable bowel syndrome) Crohn's disease Home Medications ???Medication ???Instructions ???Recorded ???Last Taken ???Type benralizumab 10 mg/0.5 mL 30 mg subcut Q8W 05/29/25 04/06/25 History subcutaneous syringe (Fasenra) polyethylene glycol 3350 17 4 g PO ONCE 05/29/25 05/30/25 Hist ory gram/dose oral powder (Miralax) vedolizumab 300 mg intravenous mg .Route 05/29/25 05/03/25 Histor y solution (Entyvio) albuterol sulfate 90 mcg/actuation 2 inh inhalation Q4H PRN shortne ss 05/31/25 05/17/25 History breath activated powder inhaler of breath bisacodyl 5 mg tablet 5 mg PO QODAY 05/31/25 05/30/25 Hi story dicyclomine 20 mg tablet 20 mg PO 4X/DAY 05/31/25 05/31/25 History esomeprazole magnesium 40 mg 40 mg PO DAILY 05/31/25 05/31/25 H istory capsule,delayed release famotidine 20 mg tablet (Acid 20 mg PO QHS 05/31/25 05/30/25 His tory Controller) ipratropium bromide 42 mcg (0.06 2 spray intranasal TID PRN allergy 05/31/25 05/30/25 History %) nasal spray symptoms prednisone 1 mg tablet 4 mg PO DAILY 05/31/25 05/30/25 Hi story fluticasone furoate 200 1 inh inhalation DAILY 06/08/25 Un known History mcg-vilanterol 25 mcg/dose inhalation powder (Breo Ellipta) i (more content not included)... Normal [facility] Hematocrit Auto (Bld) [Volum e fraction]Ordered By: Barrington Sanchez on 06-08-2025 Hematocrit (Bld) [Volume fraction] 38.2 % Low 40-54 [facility] Hemoglobin A1c percentageOrd ered By: Diomedes Mota on 06-08-2025 HbA1c (Bld) [Mass fraction] 5.4 % <5.7 [facility] Comment on above: Normal < 5.7 % Predi abetic 5.7 - 6.4 % Diabetic >or= 6.5 % Please note range changes. Hemoglobin measurementOrdere d By: Barrington Sanchez on 06-08-2025 Hemoglobin (Bld) [Mass/Vol] 13.3 g/dL 13.0-16.5 [facility] Immature granulocytes/100 WB C Auto (Bld)Ordered By: Barrington Sanchez on 06-08-2025 Immature granulocytes/100 WBC (Bld) 0.800 % 0.0-0.9 [facility] Comment on above: IG% - Immature Granu locytes (promyelocytes, myelocytes and metamyelocytes) > 1% indicates that a LEFT SHIFT is Present. Ketones Test strip Ql (U)Ord ered By: Barrington Sanchez on 06-08-2025 Ketones Ql (U) 5 mg/dl High Negative [facility] MCV (mean corpuscular volume ) determinationOrdered By: Barrington Sanchez on 06-08-2025 MCV (RBC) [Entitic vol] 92.3 fL 80-94 [facility] Magnesiumon 06-08-2025 Magnesium [Mass/Vol] 2.2 mg/dL Normal 1.5-2.2 [facility] Comment on above: Performed By: #### L 506.0200, L501.5200 #### [facility] [address] [place] [address], [address] Magnesium measurement (mass/ volume)Ordered By: Diomedes Mota on 06-08-2025 Magnesium (Unsp spec) [Mass/Vol] 2.2 mg/dL 1.5-2.2 [facility] Mean corpuscular hemoglobin (MCH) determinationOrdered By: Barrington Sanchez on 06-08-2025 MCH (RBC) [Entitic mass] 32.1 pg High 27.0-32.0 [facility] Mean corpuscular hemoglobin concentration (MCHC) determinationOrdered By: Barrington Sanchez on 06-08-2025 MCHC (RBC) [Mass/Vol] 34.8 g/dL 32-36 [facility] Mean platelet volume determi nationOrdered By: Barrington Sanchez on 06-08-2025 Platelet mean volume (Bld) [Entitic vol] 9.2 fL 6.2-12.0 [facility] Microscopic analysis of urin e for red blood cells (RBC)Ordered By: Barrington Sanchez on 06-08-2025 Microscopic analysis of urine for red blood cells (RBC) 0 SEEN /hpf 0-5 [facility] Monocyte percentageOrdered B y: Barrington Sanchez on 06-08-2025 Monocytes/100 WBC (Bld) 8.2 % 0-10 [facility] Mucus LM Ql (Urine sed)Order ed By: Barrington Sanchez on 06-08-2025 Mucus Ql (Urine sed) 0 SEEN /hpf [facility] Neutrophil percentageOrdered By: Barrington Sanchez on 06-08-2025 Neutrophils/100 WBC (Bld) 75.9 % High 47-70 [facility] Nitrite Test strip Ql (U)Ord ered By: Barrington Sanchez on 06-08-2025 Nitrite Ql (U) Negative Negative [facility] Nucleated red blood cell per centageOrdered By: Barrington Sanchez on 06-08-2025 Nucleated RBC/100 WBC (Bld) [Ratio] 0 % 0-5 [facility] Platelet countOrdered By: Brit Sanchez on 06-08-2025 Platelets (Bld) [#/Vol] 191 10*3/uL 150-450 [facility] Potassium measurement (mass/ volume)Ordered By: Barrington Sanchez on 06-08-2025 Potassium (Unsp spec) [Mass/Vol] 4.2 mmol/L 3.3-5.1 [facility] Comment on above: Hemolysis present, R esults could be affected. Protein Test strip Ql (U)Ord ered By: Barrington Sanchez on 06-08-2025 Protein Ql (U) Negative Negative [facility] RBC Auto (Bld) [#/Vol]Ordere d By: Barrington Sanchez on 06-08-2025 RBC (Bld) [#/Vol] 4.14 10*6/uL Low 4.6-6.2 [facility] Serum creatinine measurement (mass/volume)Ordered By: Barrington Sanchez on 06-08-2025 Creatinine [Mass/Vol] 1.00 mg/dL 0.70-1.20 [facility] Serum glucose measurement (m ass/volume)Ordered By: Barrington Sanchez on 06-08-2025 Glucose [Mass/Vol] 90 mg/dL 70-99 [facility] Serum or plasma C reactive p rotein measurement (mass/volume)Ordered By: Barrington Sanchez on 06-08-2025 CRP [Mass/Vol] mg/L 0.0-3.0 [facility] Serum or plasma calcium rell urement (mass/volume)Ordered By: Barrington Sanchez on 06-08-2025 Calcium [Mass/Vol] 9.2 mg/dL 7.6-11.0 [facility] Serum or plasma creatine kin ase activityOrdered By: Diomedes Mota on 06-08-2025 CK [Catalytic activity/Vol] 41 U/L 24-195 [facility] Serum or plasma urea nitroge n measurement (mass/volume)Ordered By: Barrington Sanchez on 06-08-2025 Urea nitrogen [Mass/Vol] 17 mg/dL 4-19 [facility] Sodium levelOrdered By: Barrington Sanchez on 06-08-2025 Sodium [Moles/Vol] 140 mmol/L 133-145 [facility] Squamous epithelial cells de tection in urine sediment by light microscopyOrdered By: Barrington Sanchez on 06-08-2025 Epithelial cells.squamous LM Ql (Urine sed) 0 SEEN /hpf 0-5 [facility] TSH DL <= 0.005 mIU/L QnOrde red By: Diomedes Mota on 06-08-2025 TSH Qn 1.690 uIU/mL 0.300-4.20 0 [facility] Urinalysis, Completeon 06-08 BACTERIA 0 SEEN Normal None Seen [facility] Comment on above: Order Comment: CLEAN CATCH Performed By: #### L 501.2300, L500.4050, L500.4100, L100.0100 #### [facility] [address] [place], [address] EPI,SQUAMOUS 0 SEEN Normal 0-5 [facility] Comment on above: Order Comment: CLEAN CATCH Performed By: #### L 501.2300, L500.4050, L500.4100, L100.0100 #### [facility] [address] [place], [address] Mucus Ql (Urine sed) 0 SEEN Normal [facility] Comment on above: Order Comment: CLEAN CATCH Performed By: #### L 501.2300, L500.4050, L500.4100, L100.0100 #### [facility] [address] [place], [address] RBC 0 SEEN Normal 0-5 [facility] Comment on above: Order Comment: CLEAN CATCH Performed By: #### L 501.2300, L500.4050, L500.4100, L100.0100 #### [facility] [address] [place], [address] WBC 0 SEEN Normal 0-[address] [place] [address] Comment on above: Order Comment: CLEAN CATCH Performed By: #### L 501.2300, L500.4050, L500.4100, L100.0100 #### [facility] [address] [place], [address] Urine clarityOrdered By: Kirsty Sanchez on 06-08-2025 Clarity (U) Clear Clear [facility] Urine color determinationOrd ered By: Barrington Sanchez on 06-08-2025 Color (U) Yellow Yellow [facility] Urine glucose detectionOrder ed By: Barrington Sanchez on 06-08-2025 Glucose Ql (U) Normal mg/dl Normal [facility] Urine leukocyte esterase det ection by dipstickOrdered By: Barrington Sanchez on 06-08-2025 Leukocyte esterase Test strip Ql (U) Negative Negative [facility] Urine pHOrdered By: Barrington bishop on 06-08-2025 pH (U) 5.0 [pH] 5.0 - 8.0 [facility] Urine sediment bacteria coun t by microscopy (number/high power field)Ordered By: Barrington Sanchez on 06-08-2025 Bacteria LM.HPF (Urine sed) [#/Area] 0 /[HPF] None Seen [facility] Urine specific gravity measu rementOrdered By: Barrington Sanchez on 06-08-2025 Specific gravity (U) [Rel density] 1.025 1.002-1.03 0 [facility] Urine urobilinogen measureme ntOrdered By: Barrington Sanchez on 06-08-2025 Urobilinogen Ql (U) Normal mg/dl Normal [facility] Vitamin B12 ser/plasOrdered By: Diomedes Mota on 06-08-2025 Cobalamin (Vitamin B12) [Mass/Vol] 515 pg/mL 180-914 [facility] Vitamin D 1,25-Dihydroxyon 0 06-08-2025 VIT D 1,25 DIHY 58.6 pg/mL Normal 24.8-81.5 [facility] Comment on above: Order Comment: Order Date: 06/04/25Order Info: [id number] Result Comment: Perf ormed at: [facility] [address] [id number] Child Daycare Worker: Jamari Mariee MD, Phone: [phone] Performed By: #### L 501.2300, L500.4050, L500.4100, L100.0100 #### [facility] [address] [place], [place], [id number] Vitamin D,25 Hydroxyon 06-08 Vitamin D 25-OH 23.5 ng/mL Low 30-100 [facility] Comment on above: Order Comment: CARRINGTON Watson ADD VITD TO BLOOD DRAWN 06/04/25 PER Order Date: 06/04/25Order Info: [id number] - CMPOrder Info: [id number] - FOLS Result Comment: Ankita min D Status Deficiency: <20 ng/mL (50nmol/L) Insufficiency: 20-30 ng/mL (50-75 nmol/L) Sufficiency: 30-100 ng/mL (75-250 nmol/L) Toxicity: >100 ng/mL (>250 nmol/L) Performed By: #### L 501.2300, L500.4050, L500.4100, L100.0100 #### [facility] [address] [place], [place], [id number] White blood cell (WBC) count Ordered By: Barrington Sanchez on 06-08-2025 WBC (Bld) [#/Vol] 10.0 10*3/uL 4.4-11.0 [facility] White blood cell countOrdere d By: Barrington Sanchez on 06-08-2025 White blood cell count 0 SEEN /hpf 0-5 [facility] Zinc, Plasma or Serumon 05-25 ZINC,PLASMA/SER 106 ug/dL Normal 44-115 [facility] Comment on above: Order Comment: Test( s) 337507-Ejed, Plasma or Serumwas developed and its performance characteristicsdetermined by [facility]. It has not been cleared or approvedby the Food and Drug Administration. Result Comment: Dete ction Limit = 5 Performed at: [address] [id number] Child Daycare Worker: Jamari Mariee MD, Phone: [phone] Performed By: #### L 501.2300, L500.4050, L500.4100, L100.0100 #### [facility] [address] [place], [place], [address] Anion gap in Serum or Plasma Ordered By: Jaycob Yang on 06-04-2025 Anion gap [Moles/Vol] 13 mmol/L 04-08 [facility] BUN/creatinine ratioOrdered By: Jaycob Yang on 06-04-2025 Urea nitrogen/Creatinine [Mass ratio] 17.7 mg/mg - [facility] Bilirubin, totalOrdered By: Jaycob Yang on 06-04-2025 Bilirubin [Mass/Vol] 0.31 mg/dL 0.00-1.30 [facility] Carbon dioxide, total [Moles /volume] in Central venous bloodOrdered By: Jaycob Yang on 06-04-2025 CO2 [Moles/Vol] 21.4 mmol/L 21.0-32.0 [facility] Chloride assayOrdered By: Jessica Yang on 06-04-2025 Chloride [Moles/Vol] 106 mmol/L 98-108 [facility] Comprehensive Metabolic Prof ilon 06-04-2025 Albumin [Mass/Vol] 4.1 g/dL Normal 3.4-4.8 [facility] Comment on above: Order Comment: Order Date: 06/04/25Order Info: [id number] - CMPOrder Info: [id number] - FOLS Performed By: #### L 501.2300, L500.4050, L500.4100, L100.0100 #### [facility] [address] [place], [address] Albumin/Globulin [Mass ratio] 1.4 {ratio} Normal 0.9-2.4 [facility] Comment on above: Order Comment: Order Date: 06/04/25Order Info: [id number]- - CMPOrder Info: [id number] - FOLS Performed By: #### L 501.2300, L500.4050, L500.4100, L100.0100 #### [facility] [address] [place], [address] ALK PHOS 79 U/L Normal 40-129 [facility] Comment on above: Order Comment: Order Date: 06/04/25Order Info: [id number]- - CMPOrder Info: [id number] - FOLS Performed By: #### L 501.2300, L500.4050, L500.4100, L100.0100 #### [facility] [address] [place], [address] ALT [Catalytic activity/Vol] 53 U/L High <=46 [facility] Comment on above: Order Comment: Order Date: 06/04/25Order Info: [id number] - CMPOrder Info: [id number] - FOLS Performed By: #### L 501.2300, L500.4050, L500.4100, L100.0100 #### [facility] [address] [place], [address] AST [Catalytic activity/Vol] 41 U/L High <=37 [facility] Comment on above: Order Comment: Order Date: 06/04/25Order Info: [id number] - CMPOrder Info: [id number] - FOLS Performed By: #### L 501.2300, L500.4050, L500.4100, L100.0100 #### [facility] Laboratory [address] [place], [address] Bilirubin [Mass/Vol] 0.31 mg/dL Normal 0.00-1.30 [facility] Comment on above: Order Comment: Order Date: 06/04/25Order Info: [id number] - CMPOrder Info: 8 - FOLS Performed By: #### L 501.2300, L500.4050, L500.4100, L100.0100 #### [facility] [address] [place], [address] BUN/CRE 17.7 RATIO Normal 10-20 [facility] Comment on above: Order Comment: Order Date: 06/04/25Order Info: [id number] - CMPOrder Info: 228-8 - FOLS Performed By: #### L 501.2300, L500.4050, L500.4100, L100.0100 #### [facility] [address] [place], [address] Calcium [Mass/Vol] 9.2 mg/dL Normal 7.6-11.0 [facility] Comment on above: Order Comment: Order Date: 06/04/25Order Info: [id number] - CMPOrder Info: 2284-8 - FOLS Performed By: #### L 501.2300, L500.4050, L500.4100, L100.0100 #### [facility] [address] [place], [address] Chloride [Moles/Vol] 106 mmol/L Normal 98-108 [facility] Comment on above: Order Comment: Order Date: 06/04/25Order Info: [id number]- - CMPOrder Info: 228-8 - FOLS Performed By: #### L 501.2300, L500.4050, L500.4100, L100.0100 #### [facility] [address] [place], [address] CO2 [Moles/Vol] 21.4 mmol/L Normal 21.0-32.0 [facility] Comment on above: Order Comment: Order Date: 06/04/25Order Info: [id number] - CMPOrder Info: 8 - FOLS Performed By: #### L 501.2300, L500.4050, L500.4100, L100.0100 #### [facility] [address] [place], [address] Creatinine [Mass/Vol] 1.10 mg/dL Normal 0.70-1.20 [facility] Comment on above: Order Comment: Order Date: 06/04/25Order Info: 07 - CMPOrder Info: [id number] - FOLS Performed By: #### L 501.2300, L500.4050, L500.4100, L100.0100 #### [facility] [address] [place], [address] GAP 13 Normal 5-15 [facility] Comment on above: Order Comment: Order Date: 06/04/25Order Info: [id number]- - CMPOrder Info: [id number] - FOLS Performed By: #### L 501.2300, L500.4050, L500.4100, L100.0100 #### [facility] [address] [place], [address] GFR/1.73 sq M.predicted among non-blacks MDRD (S/P/Bld) [Vol rate/Area] 69 mL/min/{1.73_m2} Normal >60 [facility] Comment on above: Order Comment: Order Date: 06/04/25Order Info: [id number] - CMPOrder Info: [id number] - FOLS Result Comment: mL/m in/1.73m2 CKD-EPI Creatinine Equation (2020) Performed By: #### L 501.2300, L500.4050, L500.4100, L100.0100 #### [facility] [address] [place], [address] Globulin (S) [Mass/Vol] 2.9 g/dL Normal 2.2-4.2 [facility] Comment on above: Order Comment: Order Date: 06/04/25Order Info: 0786- - CMPOrder Info: [id number] - FOLS Performed By: #### L 501.2300, L500.4050, L500.4100, L100.0100 #### [facility] [address] [place], [address] Glucose [Mass/Vol] 92 mg/dL Normal 70-99 [facility] Comment on above: Order Comment: Order Date: 06/04/25Order Info: [id number] - CMPOrder Info: 8 - FOLS Performed By: #### L 501.2300, L500.4050, L500.4100, L100.0100 #### [facility] [address] [place], [address] Potassium [Moles/Vol] 3.8 mmol/L Normal 3.3-5.1 [facility] Comment on above: Order Comment: Order Date: 06/04/25Order Info: 0786- - CMPOrder Info: 8 - FOLS Performed By: #### L 501.2300, L500.4050, L500.4100, L100.0100 #### [facility] [address] [place], [address] Sodium [Moles/Vol] 141 mmol/L Normal 133-145 [facility] Comment on above: Order Comment: Order Date: 06/04/25Order Info: [id number] - CMPOrder Info: [id number] - FOLS Performed By: #### L 501.2300, L500.4050, L500.4100, L100.0100 #### [facility] [address] [place], [address] T PROT 6.9 g/dL Normal 5.9-8.4 [facility] Comment on above: Order Comment: Order Date: 06/04/25Order Info: 0786- - CMPOrder Info: [id number] - FOLS Performed By: #### L 501.2300, L500.4050, L500.4100, L100.0100 #### [facility] [address] [place], [address] Urea nitrogen [Mass/Vol] 20 mg/dL High 4-19 [facility] Comment on above: Order Comment: Order Date: 06/04/25Order Info: [id number] - CMPOrder Info: [id number] - FOLS Performed By: #### L 501.2300, L500.4050, L500.4100, L100.0100 #### [facility] [address] [place], [address] Folate [Mass/volume] in Seru m or PlasmaOrdered By: Jaycob Yang on 06-04-2025 Folate [Mass/Vol] 8.44 ng/mL 4.60-34.80 [facility] Folates,Serum (Folic Acid)on 06-04-2025 FOLATES,SERUM 8.44 ng/mL Normal 4.60-34.80 [facility] Comment on above: Order Comment: N Performed By: #### L 501.2300, L500.4050, L500.4100, L100.0100 #### [facility] [address] [place], [address] Glomerular filtration rate ( GFR) estimation/1.73 sq m using serum, plasma, or whole bOrdered By: Jaycob Yang on 06-04-2025 GFR/1.73 sq M.predicted among non-blacks MDRD (S/P/Bld) [Vol rate/Area] 69 mL/min/{1.73_m2} >60 [facility] Comment on above: mL/min/1.73m2 CKD-EP I Creatinine Equation (2020) Laboratory - Chemistry and C hemistry - challengeOrdered By: Jaycob Yang on 06-04-2025 AST [Catalytic activity/Vol] 41 U/L High <38 [facility] Potassium measurement (mass/ volume)Ordered By: Jaycob Yang on 06-04-2025 Potassium (Unsp spec) [Mass/Vol] 3.8 mmol/L 3.3-5.1 [facility] Serum creatinine measurement (mass/volume)Ordered By: Jaycob Yang on 06-04-2025 Creatinine [Mass/Vol] 1.10 mg/dL 0.70-1.20 [facility] Serum globulin measurementOr dered By: Jaycob Yang on 06-04-2025 Globulin (S) [Mass/Vol] 2.9 g/dL 2.2-4.2 [facility] Serum glucose measurement (m ass/volume)Ordered By: Jaycob Yang on 06-04-2025 Glucose [Mass/Vol] 92 mg/dL 70-99 [facility] Serum or plasma alanine alston otransferase (ALT) measurementOrdered By: Jaycob Yang on 06-04-2025 ALT [Catalytic activity/Vol] 53 U/L High <47 [facility] Serum or plasma albumin rell urement (mass/volume)Ordered By: Jaycob Yang on 06-04-2025 Albumin [Mass/Vol] 4.1 g/dL 3.4-4.8 [facility] Serum or plasma albumin/glob ulin mass ratioOrdered By: Jaycob Yang on 06-04-2025 Albumin/Globulin [Mass ratio] 1.4 {ratio} 0.9-2.4 [facility] Serum or plasma alkaline carlin sphatase measurementOrdered By: Jaycob Yang on 06-04-2025 ALP [Catalytic activity/Vol] 79 U/L 40-129 [facility] Serum or plasma calcitriol m easurement (mass/volume)Ordered By: Jaycob Yang on 06-04-2025 1,25-dihydroxyvitamin D3 [Mass/Vol] 58.6 pg/mL 24.8-81.5 [facility] Comment on above: Performed at: [facility] [address] [id number] Director: Jamari Mariee MD, Phone: [phone] Serum or plasma calcium rell urement (mass/volume)Ordered By: Jaycob Yang on 06-04-2025 Calcium [Mass/Vol] 9.2 mg/dL 7.6-11.0 [facility] Serum or plasma urea nitroge n measurement (mass/volume)Ordered By: Jaycob Yang on 06-04-2025 Urea nitrogen [Mass/Vol] 20 mg/dL High 4-19 [facility] Serum or plasma zinc measure ment (mass/volume)Ordered By: Jaycob Yang on 06-04-2025 Zinc [Mass/Vol] 106 ug/dL 44-115 [facility] Comment on above: Detection Limit = 5P erformed at: [facility] [address] [id number] Director: Jamari Mariee MD, Phone: [phone] Sodium levelOrdered By: Alena Yang on 06-04-2025 Sodium [Moles/Vol] 141 mmol/L 133-145 [facility] Total proteinOrdered By: Cassia Yang on 06-04-2025 Protein [Mass/Vol] 6.9 g/dL 5.9-8.4 [facility] Vitamin B12on 06-04-2025 Cobalamin (Vitamin B12) [Mass/Vol] 393 pg/mL Normal 180-914 [facility] Comment on above: Order Comment: Order Date: 06/04/25Order Info: [id number] - CMPOrder Info: [id number] - FOLS Performed By: #### L 501.2300, L500.4050, L500.4100, L100.0100 #### [facility] [address] [place], [place], [address] Vitamin B12 ser/plasOrdered By: Jaycob Yang on 06-04-2025 Cobalamin (Vitamin B12) [Mass/Vol] 393 pg/mL 180-914 [facility] Zinc, Plasma or Serumon ZINC,PLASMA/SER 71 ug/dL Normal 44-115 [facility] Comment on above: Order Comment: Test( s) 261881-Sxbd, Plasma or Serumwas developed and its performance characteristicsdetermined by [employer]. It has not been cleared or approvedby the Food and Drug Administration. Result Comment: Dete ction Limit = 5 Performed at: [address] [id number] [employer] Worker: Jamari Mariee MD, Phone: [phone] Performed By: #### L 501.2300, L500.4050, L500.4100, L100.0100 #### [facility] [address] [place], [address] Absolute lymphocyte countOrd ered By: Lewis Turpin on 05-31-2025 Lymphocytes Auto (Unsp spec) [#/Vol] 2.10 10*3/uL 0.83-4.51 [facility] Absolute neutrophil countOrd ered By: Lewis Turpin on 05-31-2025 Neutrophils (Bld) [#/Vol] 4.5 10*3/uL 2.0-7.7 [facility] Anion gap in Serum or Plasma Ordered By: Lewis Turpin on 05-31-2025 Anion gap [Moles/Vol] 14 mmol/L 5-15 [facility] Automated lymphocyte count a s percentage of total leukocytesOrdered By: Lewis Turpin on 05-31-2025 Lymphocytes/100 WBC Auto (Unsp spec) 28.0 % 19-41 [facility] BUN/creatinine ratioOrdered By: Lewis Turpin on 05-31-2025 Urea nitrogen/Creatinine [Mass ratio] 13.6 mg/mg 10-20 [facility] Basophil percentageOrdered B y: Lewis Turpin on 07-07-2025 Basophils/100 WBC (Bld) 0.8 % 0-1 [facility] Bilirubin Test strip Ql (U)O rdered By: Lewis Turpin on 05-31-2025 Bilirubin Ql (U) Negative Negative [facility] Bilirubin, totalOrdered By: Lewis Turpin on 05-31-2025 Bilirubin [Mass/Vol] 0.63 mg/dL 0.00-1.30 [facility] CBC W/Diff, Automatedon Absolute Lymph 2.10 X10 3/uL Normal 0.83-4.51 [facility] Comment on above: Performed By: #### L 501.2300, L500.4050, L500.4100, L100.0100 #### [facility] [address] [place], [address] Absolute Neut 4.5 X10 3/uL Normal 2.0-7.7 [facility] Comment on above: Performed By: #### L 501.2300, L500.4050, L500.4100, L100.0100 #### [facility] [address] [place], [address] Basophils/100 WBC (Bld) 0.8 % Normal 0-1 [facility] Comment on above: Performed By: #### L 501.2300, L500.4050, L500.4100, L100.0100 #### [facility] [address] [place], [address] Eosinophils/100 WBC (Bld) 0.0 % Normal 0-5 [facility] Comment on above: Performed By: #### L 501.2300, L500.4050, L500.4100, L100.0100 #### [facility] [address] [place], [address] Erythrocyte distribution width (RBC) [Ratio] 13.6 % Normal 11.6-14.6 [facility] Comment on above: Performed By: #### L 501.2300, L500.4050, L500.4100, L100.0100 #### [facility] [address] [place], [address] Hematocrit (Bld) [Volume fraction] 42.0 % Normal 40-54 [facility] Comment on above: Performed By: #### L 501.2300, L500.4050, L500.4100, L100.0100 #### [facility] [address] [place], [address] Hemoglobin (Bld) [Mass/Vol] 14.1 g/dL Normal 13.0-16.5 [facility] Comment on above: Performed By: #### L 501.2300, L500.4050, L500.4100, L100.0100 #### [facility] [address] [place], [address] IG% 1.200 High 0.0-0.9 [facility] Comment on above: Result Comment: IG% - Immature Granulocytes (promyelocytes, myelocytes and metamyelocytes) > 1% indicates that a LEFT SHIFT is Present. Performed By: #### L 501.2300, L500.4050, L500.4100, L100.0100 #### [facility] [address] [place], [address] Lymphocytes/100 WBC (Bld) 28.0 % Normal 19-41 [facility] Comment on above: Performed By: #### L 501.2300, L500.4050, L500.4100, L100.0100 #### [facility] [address] [place], [address] MCH (RBC) [Entitic mass] 31.5 pg Normal 27.0-32.0 [facility] Comment on above: Performed By: #### L 501.2300, L500.4050, L500.4100, L100.0100 #### [facility] [address] [place], [address] MCHC (RBC) [Mass/Vol] 33.6 g/dL Normal 32-36 [facility] Comment on above: Performed By: #### L 501.2300, L500.4050, L500.4100, L100.0100 #### [facility] [address] [place], [address] MCV (RBC) [Entitic vol] 94.0 fL Normal 80-94 [facility] Comment on above: Performed By: #### L 501.2300, L500.4050, L500.4100, L100.0100 #### [facility] [address] [place], [address] Monocytes/100 WBC (Bld) 9.6 % Normal 0-10 [facility] Comment on above: Performed By: #### L 501.2300, L500.4050, L500.4100, L100.0100 #### [facility] [address] [place], [address] Neutrophils/100 WBC (Bld) 60.4 % Normal 47-70 [facility] Comment on above: Performed By: #### L 501.2300, L500.4050, L500.4100, L100.0100 #### [facility] [address] [place], [address] Nucleated RBC (Bld) [#/Vol] 0 10*3/uL Normal 0-5 [facility] Comment on above: Performed By: #### L 501.2300, L500.4050, L500.4100, L100.0100 #### [facility] [address] [place], [address] Platelet mean volume (Bld) [Entitic vol] 9.3 fL Normal 6.2-12.0 [facility] Comment on above: Performed By: #### L 501.2300, L500.4050, L500.4100, L100.0100 #### [facility] [address] [place], [address] Platelets (Bld) [#/Vol] 219 10*3/uL Normal 150-450 [facility] Comment on above: Performed By: #### L 501.2300, L500.4050, L500.4100, L100.0100 #### [facility] [address] [place], [address] RBC (Bld) [#/Vol] 4.47 10*6/uL Low 4.6-6.2 [facility] Comment on above: Performed By: #### L 501.2300, L500.4050, L500.4100, L100.0100 #### [facility] [address] [place], [address] RDW SD 46.4 fl High 35.1-43.9 [facility] Comment on above: Performed By: #### L 501.2300, L500.4050, L500.4100, L100.0100 #### [facility] [address] [place], [address] WBC (Bld) [#/Vol] 7.5 10*3/uL Normal 4.4-11.0 [facility] Comment on above: Performed By: #### L 501.2300, L500.4050, L500.4100, L100.0100 #### [facility] [address] [place], [address] Carbon dioxide, total [Moles /volume] in Central venous bloodOrdered By: Lewis Turpin on 05-31-2025 CO2 [Moles/Vol] 16.6 mmol/L Low 21.0-32.0 [facility] Chloride assayOrdered By: Kenneth Turpin on 05-31-2025 Chloride [Moles/Vol] 107 mmol/L 98-108 [facility] Comprehensive Metabolic Prof ilon 05-31-2025 Albumin [Mass/Vol] 4.0 g/dL Normal 3.4-4.8 [facility] Comment on above: Performed By: #### L 501.2300, L500.4050, L500.4100, L100.0100 #### [facility] [address] [place], [address] Albumin/Globulin [Mass ratio] 1.4 {ratio} Normal 0.9-2.4 [facility] Comment on above: Performed By: #### L 501.2300, L500.4050, L500.4100, L100.0100 #### [facility] [address] [place], [address] ALK PHOS 90 U/L Normal 40-129 [facility] Comment on above: Performed By: #### L 501.2300, L500.4050, L500.4100, L100.0100 #### [facility] [address] [place], [address] ALT [Catalytic activity/Vol] 41 U/L Normal <=46 [facility] Comment on above: Performed By: #### L 501.2300, L500.4050, L500.4100, L100.0100 #### [facility] [address] [place], [address] AST [Catalytic activity/Vol] 35 U/L Normal <=37 [facility] Comment on above: Result Comment: Hemo lysis present, Results??could be affected. ?? Performed By: #### L 501.2300, L500.4050, L500.4100, L100.0100 #### [facility] [address] [place], [address] Bilirubin [Mass/Vol] 0.63 mg/dL Normal 0.00-1.30 [facility] Comment on above: Performed By: #### L 501.2300, L500.4050, L500.4100, L100.0100 #### [facility] [address] [place], [address] BUN/CRE 13.6 RATIO Normal 10-20 [facility] Comment on above: Performed By: #### L 501.2300, L500.4050, L500.4100, L100.0100 #### [facility] [address] [place], [address] Calcium [Mass/Vol] 9.0 mg/dL Normal 7.6-11.0 [facility] Comment on above: Performed By: #### L 501.2300, L500.4050, L500.4100, L100.0100 #### [facility] [address] [place], [address] Chloride [Moles/Vol] 107 mmol/L Normal 98-108 [facility] Comment on above: Performed By: #### L 501.2300, L500.4050, L500.4100, L100.0100 #### [facility] [address] [place], [address] CO2 [Moles/Vol] 16.6 mmol/L Low 21.0-32.0 [facility] Comment on above: Performed By: #### L 501.2300, L500.4050, L500.4100, L100.0100 #### [facility] [address] [place], [address] Creatinine [Mass/Vol] 1.06 mg/dL Normal 0.70-1.20 [facility] Comment on above: Performed By: #### L 501.2300, L500.4050, L500.4100, L100.0100 #### [facility] [address] [place], [address] ECRCL 73.06 ml/min Normal 50-250 [facility] Comment on above: Performed By: #### L 501.2300, L500.4050, L500.4100, L100.0100 #### [facility] [address] [place], [address] GAP 14 Normal 5-15 [facility] Comment on above: Performed By: #### L 501.2300, L500.4050, L500.4100, L100.0100 #### [facility] [address] [place], [address] GFR/1.73 sq M.predicted among non-blacks MDRD (S/P/Bld) [Vol rate/Area] 72 mL/min/{1.73_m2} Normal >60 [facility] Comment on above: Result Comment: mL/m in/1.73m2 CKD-EPI Creatinine Equation (2020) Performed By: #### L 501.2300, L500.4050, L500.4100, L100.0100 #### [facility] [address] [place], [address] Globulin (S) [Mass/Vol] 2.9 g/dL Normal 2.2-4.2 [facility] Comment on above: Performed By: #### L 501.2300, L500.4050, L500.4100, L100.0100 #### [facility] [address] [place], [address] Glucose [Mass/Vol] 109 mg/dL High 70-99 [facility] Comment on above: Performed By: #### L 501.2300, L500.4050, L500.4100, L100.0100 #### [facility] [address] [place], [address] Potassium [Moles/Vol] 3.9 mmol/L Normal 3.3-5.1 [facility] Comment on above: Result Comment: Hemo lysis present, Results??could be affected. ?? Performed By: #### L 501.2300, L500.4050, L500.4100, L100.0100 #### [facility] [address] [place], [address] Sodium [Moles/Vol] 138 mmol/L Normal 133-145 [facility] Comment on above: Performed By: #### L 501.2300, L500.4050, L500.4100, L100.0100 #### [facility] [address] [place], [address] T PROT 7.0 g/dL Normal 5.9-8.4 [facility] Comment on above: Performed By: #### L 501.2300, L500.4050, L500.4100, L100.0100 #### [facility] [address] [place], [address] Urea nitrogen [Mass/Vol] 14 mg/dL Normal 4-19 [facility] Comment on above: Performed By: #### L 501.2300, L500.4050, L500.4100, L100.0100 #### [facility] [address] [place], [address] Emergency Department Summary on 05-31-2025 Emergency Department Summary [facility] Medical Records Department [address] [place] [address] Emergency Department Summary 05/31/25 MR#: [id number] Acct: [id number] Name: LIBRADO GUILLEN Luis Rep #: [id number] : 1945 79 From: Lewis Turpin DO [...] days his pain is severe to the [facility] the emergency department and he states that [...] he came here for further evaluation management [facility] Medical History [place] diverticulum BPH (benign prostatic [...] follow commands knew that she was at [facility] years 2024 Skin: Wa (more content not included)... Normal [facility] Eosinophil percentageOrdered By: Lewis Turpin on 05-31-2025 Eosinophils/100 WBC (Bld) 0.0 % 0-5 [facility] Erythrocyte distribution wid th ratioOrdered By: Lewis Turpin on 05-31-2025 Erythrocyte distribution width (RBC) [Ratio] 13.6 % 11.6-14.6 [facility] Erythrocyte distribution wid th standard deviationOrdered By: Lewis Turpin on 05-31-2025 Erythrocyte distribution width (RBC) [Ratio] 46.4 fl High 35.1-43.9 [facility] Glomerular filtration rate ( GFR) estimation/1.73 sq m using serum, plasma, or whole bOrdered By: Lewis Turpin on 05-31-2025 GFR/1.73 sq M.predicted among non-blacks MDRD (S/P/Bld) [Vol rate/Area] 72 mL/min/{1.73_m2} >60 [facility] Comment on above: mL/min/1.73m2 CKD-EP I Creatinine Equation (2020) Hematocrit Auto (Bld) [Volum e fraction]Ordered By: Lewis Turpin on 05-31-2025 Hematocrit (Bld) [Volume fraction] 42.0 % 40-54 [facility] Hemoglobin measurementOrdere d By: Lewis Turpin on 05-31-2025 Hemoglobin (Bld) [Mass/Vol] 14.1 g/dL 13.0-16.5 [facility] Hyaline casts LM.LPF (Urine sed) [#/Area]Ordered By: Lewis Turpin on 05-31-2025 Hyaline casts (Urine sed) [#/Area] 0 /[LPF] 0-5 [facility] Immature granulocytes/100 WB C Auto (Bld)Ordered By: Lewis Turpin 05-31-2025 Immature granulocytes/100 WBC (Bld) 1.200 % High 0.0-0.9 [facility] Comment on above: IG% - Immature Granu locytes (promyelocytes, myelocytes and metamyelocytes) > 1% indicates that a LEFT SHIFT is Present. Ketones Test strip Ql (U)Ord ered By: Lewis Turpin on 05-31-2025 Ketones Ql (U) Negative Negative [facility] - Chemistry and C hemistry - challengeOrdered By: Lweis Turpin on 05-31-2025 AST [Catalytic activity/Vol] 35 U/L <38 [facility] Comment on above: Hemolysis present, R esults could be affected. MCV (mean corpuscular volume ) determinationOrdered By: Lewis Turpin on 05-31-2025 MCV (RBC) [Entitic vol] 94.0 fL 80-94 [facility] Mean corpuscular hemoglobin (MCH) determinationOrdered By: Lewis Turpin on 05-31-2025 MCH (RBC) [Entitic mass] 31.5 pg 27.0-32.0 [facility] Mean corpuscular hemoglobin concentration (MCHC) determinationOrdered By: Lewis Turpin on 05-31-2025 MCHC (RBC) [Mass/Vol] 33.6 g/dL 32-36 [facility] Mean platelet volume determi nationOrdered By: Lewis Turpin on 05-31-2025 Platelet mean volume (Bld) [Entitic vol] 9.3 fL 6.2-12.0 [facility] Microscopic analysis of urin e for red blood cells (RBC)Ordered By: Lewis Turpin on 05-31-2025 Microscopic analysis of urine for red blood cells (RBC) 0 SEEN /hpf 0-5 [facility] Monocyte percentageOrdered B y: Lewis Turpin on 05-31-2025 Monocytes/100 WBC (Bld) 9.6 % 0-10 [facility] Mucus LM Ql (Urine sed)Order ed By: Lewis Turpin on 05-31-2025 Mucus Ql (Urine sed) 2+ /hpf [facility] Neutrophil percentageOrdered By: Lewis Turpin on 05-31-2025 Neutrophils/100 WBC (Bld) 60.4 % 47-70 [facility] Nitrite Test strip Ql (U)Ord ered By: Lewis Turpin on 05-31-2025 Nitrite Ql (U) Negative Negative [facility] Nucleated red blood cell per centageOrdered By: Lewis Turpin on 05-31-2025 Nucleated RBC/100 WBC (Bld) [Ratio] 0 % 0-5 [facility] Platelet countOrdered By: Kenneth Turpin on 05-31-2025 Platelets (Bld) [#/Vol] 219 10*3/uL 150-450 [facility] Potassium measurement (mass/ volume)Ordered By: Lewis Turpin on 05-31-2025 Potassium (Unsp spec) [Mass/Vol] 3.9 mmol/L 3.3-5.1 [facility] Comment on above: Hemolysis present, R esults could be affected. Protein Test strip Ql (U)Ord ered By: Lewis Turpin on 05-31-2025 Protein Ql (U) 30 mg/dl High Negative [facility] RBC Auto (Bld) [#/Vol]Ordere d By: Lewis Turpin on 05-31-2025 RBC (Bld) [#/Vol] 4.47 10*6/uL Low 4.6-6.2 [facility] Serum creatinine measurement (mass/volume)Ordered By: Lewis Turpin on 05-31-2025 Creatinine [Mass/Vol] 1.06 mg/dL 0.70-1.20 [facility] Serum globulin measurementOr dered By: Lewis Turpin on 05-31-2025 Globulin (S) [Mass/Vol] 2.9 g/dL 2.2-4.2 [facility] Serum glucose measurement (m ass/volume)Ordered By: Lewis Turpin on 05-31-2025 Glucose [Mass/Vol] 109 mg/dL High 70-99 [facility] Serum or plasma alanine alston otransferase (ALT) measurementOrdered By: Lewis Turpin on 05-31-2025 ALT [Catalytic activity/Vol] 41 U/L <47 [facility] Serum or plasma albumin rell urement (mass/volume)Ordered By: Lewis Turpin on 05-31-2025 Albumin [Mass/Vol] 4.0 g/dL 3.4-4.8 [facility] Serum or plasma albumin/glob ulin mass ratioOrdered By: Lewis Turpin on 05-31-2025 Albumin/Globulin [Mass ratio] 1.4 {ratio} 0.9-2.4 [facility] Serum or plasma alkaline carlin sphatase measurementOrdered By: Lewis Turpin on 05-31-2025 ALP [Catalytic activity/Vol] 90 U/L 40-129 [facility] Serum or plasma calcium rell urement (mass/volume)Ordered By: Lewis Turpin on 05-31-2025 Calcium [Mass/Vol] 9.0 mg/dL 7.6-11.0 [facility] Serum or plasma urea nitroge n measurement (mass/volume)Ordered By: Lewis Turpin on 05-31-2025 Urea nitrogen [Mass/Vol] 14 mg/dL 4-19 [facility] Sodium levelOrdered By: Remy Turpin on 05-31-2025 Sodium [Moles/Vol] 138 mmol/L 133-145 [facility] Squamous epithelial cells de tection in urine sediment by light microscopyOrdered By: Lewis Turpin on 05-31-2025 Epithelial cells.squamous LM Ql (Urine sed) 0 SEEN /hpf 0-5 [facility] Total proteinOrdered By: Richard Turpin on 05-31-2025 Protein [Mass/Vol] 7.0 g/dL 5.9-8.4 [facility] Urinalysis, Completeon 05-31 CAST,HYALINE 0-5 SEEN Normal 0-5 [facility] Comment on above: Order Comment: CLEAN CATCH Performed By: #### L 503.0106, L501.9520, L501.9985 #### [facility] [address] [place], [address] Mucus Ql (Urine sed) 2+ /hpf Normal [facility] Comment on above: Order Comment: CLEAN CATCH Performed By: #### L 503.0106, L501.9520, L501.9985 #### [facility] [address] [place], [address] BACTERIA RARE Normal None Seen [facility] Comment on above: Order Comment: CLEAN CATCH Performed By: #### L 503.0106, L501.9520, L501.9985 #### [facility] [address] [place], [address] WBC 0-5 SEEN Normal 0-5 [facility] Comment on above: Order Comment: CLEAN CATCH Performed By: #### L 503.0106, L501.9520, L501.9985 #### [facility] [address] [place], [address] EPI,SQUAMOUS 0 SEEN Normal 0-5 [facility] Comment on above: Order Comment: CLEAN CATCH Performed By: #### L 503.0106, L501.9520, L501.9985 #### [facility] [address] [place], [address] RBC 0 SEEN Normal 0-5 [facility] Comment on above: Order Comment: CLEAN CATCH Performed By: #### L 503.0106, L501.9520, L501.9985 #### [facility] [address] [place], [address] Urine clarityOrdered By: Richard Turpin on 05-31-2025 Clarity (U) Clear Clear [facility] Urine color determinationOrd ered By: Lewis Turpin on 05-31-2025 Color (U) Yellow Yellow [facility] Urine glucose detectionOrder ed By: Lewis Turpin on 05-31-2025 Glucose Ql (U) Normal mg/dl Normal [facility] Urine leukocyte esterase det ection by dipstickOrdered By: Lewis Turpin on 05-31-2025 Leukocyte esterase Test strip Ql (U) Negative Negative [facility] Urine pHOrdered By: Lewis richey on 05-31-2025 pH (U) 6.0 [pH] 5.0 - 8.0 [facility] Urine sediment bacteria coun t by microscopy (number/high power field)Ordered By: Lewis Turpin on 05-31-2025 Bacteria LM.HPF (Urine sed) [#/Area] RARE /hpf None Seen [facility] Urine specific gravity measu rementOrdered By: Lewis Turpin on 05-31-2025 Specific gravity (U) [Rel density] 1.020 1.002-1.03 0 [facility] Urine urobilinogen measureme ntOrdered By: Lewis Turpin on 05-31-2025 Urobilinogen Ql (U) Normal mg/dl Normal [facility] White blood cell (WBC) count Ordered By: Lewis Turpin on 05-31-2025 WBC (Bld) [#/Vol] 7.5 10*3/uL 4.4-11.0 [facility] White blood cell countOrdere d By: Lewis Turpin on 05-31-2025 White blood cell count 0-5 SEEN /hpf 0-5 [facility] Urgent Care Visit Reporton 0 05-29-2025 Urgent Care Visit Report [facility] [address], [address] [place] [address] OFFICE VISIT Date of Service: 05/29/25 MR#: [id number] Acct: [id number] Name: LIBRADO GUILLEN Rep #: [id number] : 1945 Provider: KEILY Castillo Age/Sex: 79/M Location: [facility] [place] Status: Signed Intake Vital Signs 03/08/25 16:10 [...] medication. Patient states it didn't help him. [facility] Medical History Zenkers diverticulum BPH (benign [...] 4. Preventio (more content not included)... Normal [facility] Absolute lymphocyte countOrd ered By: Jaycob Yang on 05-27-2025 Lymphocytes Auto (Unsp spec) [#/Vol] 2.04 10*3/uL 0.83-4.51 [facility] Absolute neutrophil countOrd ered By: Jaycob Trey on 05-27-2025 Neutrophils (Bld) [#/Vol] 5.8 10*3/uL 2.0-7.7 [facility] Anion gap in Serum or Plasma Ordered By: Jaycob Yang on 05-27-2025 Anion gap [Moles/Vol] 13 mmol/L 5-15 [facility] Automated lymphocyte count a s percentage of total leukocytesOrdered By: Jaycob Yang on 05-27-2025 Lymphocytes/100 WBC Auto (Unsp spec) 22.8 % 19-41 [facility] BUN/creatinine ratioOrdered By: Jaycob Yang on 05-27-2025 Urea nitrogen/Creatinine [Mass ratio] 18.9 mg/mg 10-20 [facility] Basophil percentageOrdered B y: Jaycob Yang on 05-27-2025 Basophils/100 WBC (Bld) 0.9 % 0-1 [facility] Bilirubin, totalOrdered By: Jaycob Yang on 05-27-2025 Bilirubin [Mass/Vol] 0.42 mg/dL 0.00-1.30 [facility] CBC W/Diff, Automatedon 07 Absolute Lymph 2.04 X10 3/uL Normal 0.83-4.51 [facility] Comment on above: Order Comment: Order Date: 05/27/25Order Info: 0184-1 - CBCD Performed By: #### L 501.2300, L500.4050, L500.4100, L100.0100 #### [facility] [address] [place], [address] Absolute Neut 5.8 X10 3/uL Normal 2.0-7.7 [facility] Comment on above: Order Comment: Order Date: 05/27/25Order Info: 0184-1 - CBCD Performed By: #### L 501.2300, L500.4050, L500.4100, L100.0100 #### [facility] [address] [place], [address] Basophils/100 WBC (Bld) 0.9 % Normal 0-1 [facility] Comment on above: Order Comment: Order Date: 05/27/25Order Info: 0184-1 - CBCD Performed By: #### L 501.2300, L500.4050, L500.4100, L100.0100 #### [facility] [address] [place], [address] Eosinophils/100 WBC (Bld) 0.0 % Normal 0-5 [facility] Comment on above: Order Comment: Order Date: 05/27/25Order Info: 0184-1 - CBCD Performed By: #### L 501.2300, L500.4050, L500.4100, L100.0100 #### [facility] [address] [place], [address] Erythrocyte distribution width (RBC) [Ratio] 13.7 % Normal 11.6-14.6 [facility] Comment on above: Order Comment: Order Date: 05/27/25Order Info: 0184-1 - CBCD Performed By: #### L 501.2300, L500.4050, L500.4100, L100.0100 #### [facility] [address] [place], [address] Hematocrit (Bld) [Volume fraction] 42.1 % Normal 40-54 [facility] Comment on above: Order Comment: Order Date: 05/27/25Order Info: 0184-1 - CBCD Performed By: #### L 501.2300, L500.4050, L500.4100, L100.0100 #### [facility] [address] [place], [address] Hemoglobin (Bld) [Mass/Vol] 14.1 g/dL Normal 13.0-16.5 [facility] Comment on above: Order Comment: Order Date: 05/27/25Order Info: 0184-1 - CBCD Performed By: #### L 501.2300, L500.4050, L500.4100, L100.0100 #### [facility] [address] [place], [address] IG% 1.500 High 0.0-0.9 [facility] Comment on above: Order Comment: Order Date: 05/27/25Order Info: 0184-1 - CBCD Result Comment: IG% - Immature Granulocytes (promyelocytes, myelocytes and metamyelocytes) > 1% indicates that a LEFT SHIFT is Present. Performed By: #### L 501.2300, L500.4050, L500.4100, L100.0100 #### [facility] [address] [place], [address] Lymphocytes/100 WBC (Bld) 22.8 % Normal 19-41 [facility] Comment on above: Order Comment: Order Date: 05/27/25Order Info: 0184-1 - CBCD Performed By: #### L 501.2300, L500.4050, L500.4100, L100.0100 #### [facility] [address] [place], [address] MCH (RBC) [Entitic mass] 31.8 pg Normal 27.0-32.0 [facility] Comment on above: Order Comment: Order Date: 05/27/25Order Info: 0184-1 - CBCD Performed By: #### L 501.2300, L500.4050, L500.4100, L100.0100 #### [facility] [address] [place], [address] MCHC (RBC) [Mass/Vol] 33.5 g/dL Normal 32-36 [facility] Comment on above: Order Comment: Order Date: 05/27/25Order Info: 0184-1 - CBCD Performed By: #### L 501.2300, L500.4050, L500.4100, L100.0100 #### [facility] [address] [place], [address] MCV (RBC) [Entitic vol] 95.0 fL High 80-94 [facility] Comment on above: Order Comment: Order Date: 05/27/25Order Info: 0184-1 - CBCD Performed By: #### L 501.2300, L500.4050, L500.4100, L100.0100 #### [facility] [address] [place], [address] Monocytes/100 WBC (Bld) 9.6 % Normal 0-10 [facility] Comment on above: Order Comment: Order Date: 05/27/25Order Info: 0184-1 - CBCD Performed By: #### L 501.2300, L500.4050, L500.4100, L100.0100 #### [facility] [address] [place], [address] Neutrophils/100 WBC (Bld) 65.2 % Normal 47-70 [facility] Comment on above: Order Comment: Order Date: 05/27/25Order Info: 0184-1 - CBCD Performed By: #### L 501.2300, L500.4050, L500.4100, L100.0100 #### [facility] [address] [place], [address] Nucleated RBC (Bld) [#/Vol] 0 10*3/uL Normal 0-5 [facility] Comment on above: Order Comment: Order Date: 05/27/25Order Info: 0184-1 - CBCD Performed By: #### L 501.2300, L500.4050, L500.4100, L100.0100 #### [facility] [address] [place], [address] Platelet mean volume (Bld) [Entitic vol] 9.8 fL Normal 6.2-12.0 [facility] Comment on above: Order Comment: Order Date: 05/27/25Order Info: 0184-1 - CBCD Performed By: #### L 501.2300, L500.4050, L500.4100, L100.0100 #### [facility] [address] [place], [address] Platelets (Bld) [#/Vol] 235 10*3/uL Normal 150-450 [facility] Comment on above: Order Comment: Order Date: 05/27/25Order Info: 0184-1 - CBCD Performed By: #### L 501.2300, L500.4050, L500.4100, L100.0100 #### [facility] [address] [place], [address] RBC (Bld) [#/Vol] 4.43 10*6/uL Low 4.6-6.2 [facility] Comment on above: Order Comment: Order Date: 05/27/25Order Info: 0184-1 - CBCD Performed By: #### L 501.2300, L500.4050, L500.4100, L100.0100 #### [facility] [address] [place], [address] RDW SD 47.3 fl High 35.1-43.9 [facility] Comment on above: Order Comment: Order Date: 05/27/25Order Info: 0184-1 - CBCD Performed By: #### L 501.2300, L500.4050, L500.4100, L100.0100 #### [facility] [address] [place], [address] WBC (Bld) [#/Vol] 9.0 10*3/uL Normal 4.4-11.0 [facility] Comment on above: Order Comment: Order Date: 05/27/25Order Info: 0184-1 - CBCD Performed By: #### L 501.2300, L500.4050, L500.4100, L100.0100 #### [facility] [address] [place], [address] Carbon dioxide, total [Moles /volume] in Central venous bloodOrdered By: Jaycob Yang on 05-27-2025 CO2 [Moles/Vol] 20.6 mmol/L Low 21.0-32.0 [facility] Chloride assayOrdered By: Jessica Yang on 05-27-2025 Chloride [Moles/Vol] 106 mmol/L 98-108 [facility] Comprehensive Metabolic Prof ilon 05-27-2025 Albumin [Mass/Vol] 4.2 g/dL Normal 3.4-4.8 [facility] Comment on above: Order Comment: Order Date: 05/27/25Order Info: 0786-1 - CMPOrder Info: 3016-3 - TSH Performed By: #### L 503.0106, L501.9520, L501.9985 #### [facility] [address] [place], [address] Albumin/Globulin [Mass ratio] 1.5 {ratio} Normal 0.9-2.4 [facility] Comment on above: Order Comment: Order Date: 05/27/25Order Info: 0786-1 - CMPOrder Info: 3016-3 - TSH Performed By: #### L 503.0106, L501.9520, L501.9985 #### [facility] [address] [place], [address] ALK PHOS 93 U/L Normal 40-129 [facility] Comment on above: Order Comment: Order Date: 05/27/25Order Info: 0786-1 - CMPOrder Info: 3015-3 - TSH Performed By: #### L 503.0106, L501.9520, L501.9985 #### [facility] [address] [place], [address] ALT [Catalytic activity/Vol] 43 U/L Normal <=46 [facility] Comment on above: Order Comment: Order Date: 05/27/25Order Info: 0786-1 - CMPOrder Info: 301-3 - TSH Performed By: #### L 503.0106, L501.9520, L501.9985 #### [facility] [address] [place], [address] AST [Catalytic activity/Vol] 28 U/L Normal <=37 [facility] Comment on above: Order Comment: Order Date: 05/27/25Order Info: 0786-1 - CMPOrder Info: 301-3 - TSH Performed By: #### L 503.0106, L501.9520, L501.9985 #### [facility] [address] [place], [address] Bilirubin [Mass/Vol] 0.42 mg/dL Normal 0.00-1.30 [facility] Comment on above: Order Comment: Order Date: 05/27/25Order Info: 0786-1 - CMPOrder Info: 3016-3 - TSH Performed By: #### L 503.0106, L501.9520, L501.9985 #### [facility] [address] [place], [address] BUN/CRE 18.9 RATIO Normal 10-20 [facility] Comment on above: Order Comment: Order Date: 05/27/25Order Info: 0786-1 - CMPOrder Info: 3015-3 - TSH Performed By: #### L 503.0106, L501.9520, L501.9985 #### [facility] [address] [place], [address] Calcium [Mass/Vol] 9.3 mg/dL Normal 7.6-11.0 [facility] Comment on above: Order Comment: Order Date: 05/27/25Order Info: 785- - CMPOrder Info: 3 - TSH Performed By: #### L 503.0106, L501.9520, L501.9985 #### [facility] [address] [place], [address] Chloride [Moles/Vol] 106 mmol/L Normal 98-108 [facility] Comment on above: Order Comment: Order Date: 05/27/25Order Info: 0786- - CMPOrder Info: 3 - TSH Performed By: #### L 503.0106, L501.9520, L501.9985 #### [facility] [address] [place], [address] CO2 [Moles/Vol] 20.6 mmol/L Low 21.0-32.0 [facility] Comment on above: Order Comment: Order Date: 05/27/25Order Info: 0786-1 - CMPOrder Info: 3015-3 - TSH Performed By: #### L 503.0106, L501.9520, L501.9985 #### [facility] [address] [place], [address] Creatinine [Mass/Vol] 0.92 mg/dL Normal 0.70-1.20 [facility] Comment on above: Order Comment: Order Date: 05/27/25Order Info: 0786-1 - CMPOrder Info: 3016-3 - TSH Performed By: #### L 503.0106, L501.9520, L501.9985 #### [facility] [address] [place], [address] GAP 13 Normal 5-15 [facility] Comment on above: Order Comment: Order Date: 05/27/25Order Info: 0786-1 - CMPOrder Info: 6-3 - TSH Performed By: #### L 503.0106, L501.9520, L501.9985 #### [facility] [address] [place], [address] GFR/1.73 sq M.predicted among non-blacks MDRD (S/P/Bld) [Vol rate/Area] 86 mL/min/{1.73_m2} Normal >60 [facility] Comment on above: Order Comment: Order Date: 05/27/25Order Info: 0786-1 - CMPOrder Info: 6-3 - TSH Result Comment: mL/m in/1.73m2 CKD-EPI Creatinine Equation (2020) Performed By: #### L 503.0106, L501.9520, L501.9985 #### [facility] [address] [place], [address] Globulin (S) [Mass/Vol] 2.9 g/dL Normal 2.2-4.2 [facility] Comment on above: Order Comment: Order Date: 05/27/25Order Info: 0786-1 - CMPOrder Info: 3016-3 - TSH Performed By: #### L 503.0106, L501.9520, L501.9985 #### [facility] [address] [place], [address] Glucose [Mass/Vol] 105 mg/dL High 70-99 [facility] Comment on above: Order Comment: Order Date: 05/27/25Order Info: 0786-1 - CMPOrder Info: 3016-3 - TSH Performed By: #### L 503.0106, L501.9520, L501.9985 #### [facility] [address] [place], [address] Potassium [Moles/Vol] 4.1 mmol/L Normal 3.3-5.1 [facility] Comment on above: Order Comment: Order Date: 05/27/25Order Info: 0786-1 - CMPOrder Info: 3 - TSH Performed By: #### L 503.0106, L501.9520, L501.9985 #### [facility] [address] [place], [address] Sodium [Moles/Vol] 140 mmol/L Normal 133-145 [facility] Comment on above: Order Comment: Order Date: 05/27/25Order Info: 0786-1 - CMPOrder Info: 3 - TSH Performed By: #### L 503.0106, L501.9520, L501.9985 #### [facility] [address] [place], [address] T PROT 7.1 g/dL Normal 5.9-8.4 [facility] Comment on above: Order Comment: Order Date: 05/27/25Order Info: 0786-1 - CMPOrder Info: 3 - TSH Performed By: #### L 503.0106, L501.9520, L501.9985 #### [facility] [address] [place], [address] Urea nitrogen [Mass/Vol] 17 mg/dL Normal 4-19 [facility] Comment on above: Order Comment: Order Date: 05/27/25Order Info: 0786-1 - CMPOrder Info: 3015-3 - TSH Performed By: #### L 503.0106, L501.9520, L501.9985 #### [facility] [address] [place], [address] Eosinophil percentageOrdered By: Jaycob Yang on 05-27-2025 Eosinophils/100 WBC (Bld) 0.0 % 0-5 [facility] Erythrocyte distribution wid th ratioOrdered By: Jaycob Yang on 05-27-2025 Erythrocyte distribution width (RBC) [Ratio] 13.7 % 11.6-14.6 [facility] Erythrocyte distribution wid th standard deviationOrdered By: Jaycob Yang on 05-27-2025 Erythrocyte distribution width (RBC) [Ratio] 47.3 fl High 35.1-43.9 [facility] Glomerular filtration rate ( GFR) estimation/1.73 sq m using serum, plasma, or whole bOrdered By: Jaycob Yang on 05-27-2025 GFR/1.73 sq M.predicted among non-blacks MDRD (S/P/Bld) [Vol rate/Area] 86 mL/min/{1.73_m2} >60 [facility] Comment on above: mL/min/1.73m2 CKD-EP I Creatinine Equation (2020) Hematocrit Auto (Bld) [Volum e fraction]Ordered By: Jaycob Yang on 05-27-2025 Hematocrit (Bld) [Volume fraction] 42.1 % 40-54 [facility] Hemoglobin measurementOrdere d By: Jaycob Yang on 05-27-2025 Hemoglobin (Bld) [Mass/Vol] 14.1 g/dL 13.0-16.5 [facility] Immature granulocytes/100 WB C Auto (Bld)Ordered By: Jaycob Yang on 05-27-2025 Immature granulocytes/100 WBC (Bld) 1.500 % High 0.0-0.9 [facility] Comment on above: IG% - Immature Granu locytes (promyelocytes, myelocytes and metamyelocytes) > 1% indicates that a LEFT SHIFT is Present. Laboratory - Chemistry and C hemistry - challengeOrdered By: Jaycob Yang on 05-27-2025 AST [Catalytic activity/Vol] 28 U/L <38 [facility] MCV (mean corpuscular volume ) determinationOrdered By: Jaycob Trey on 05-27-2025 MCV (RBC) [Entitic vol] 95.0 fL High 80-94 [facility] Mean corpuscular hemoglobin (MCH) determinationOrdered By: Jaycob Yang on 05-27-2025 MCH (RBC) [Entitic mass] 31.8 pg 27.0-32.0 [facility] Mean corpuscular hemoglobin concentration (MCHC) determinationOrdered By: Jaycob Yang on 05-27-2025 MCHC (RBC) [Mass/Vol] 33.5 g/dL 32-36 [facility] Mean platelet volume determi nationOrdered By: Jaycob Yang on 05-27-2025 Platelet mean volume (Bld) [Entitic vol] 9.8 fL 6.2-12.0 [facility] Monocyte percentageOrdered B y: Jaycob Yang on 05-27-2025 Monocytes/100 WBC (Bld) 9.6 % 0-10 [facility] Neutrophil percentageOrdered By: Jaycob Yang on 05-27-2025 Neutrophils/100 WBC (Bld) 65.2 % 47-70 [facility] Nucleated red blood cell per centageOrdered By: Jaycob Yang on 05-27-2025 Nucleated RBC/100 WBC (Bld) [Ratio] 0 % 0-5 [facility] Platelet countOrdered By: Jessica Yang on 05-27-2025 Platelets (Bld) [#/Vol] 235 10*3/uL 150-450 [facility] Potassium measurement (mass/ volume)Ordered By: Jaycob Yang on 05-27-2025 Potassium (Unsp spec) [Mass/Vol] 4.1 mmol/L 3.3-5.1 [facility] RBC Auto (Bld) [#/Vol]Ordere d By: Jaycob Yang on 05-27-2025 RBC (Bld) [#/Vol] 4.43 10*6/uL Low 4.6-6.2 [facility] Serum creatinine measurement (mass/volume)Ordered By: Jaycob Yang on 05-27-2025 Creatinine [Mass/Vol] 0.92 mg/dL 0.70-1.20 [facility] Serum globulin measurementOr dered By: Jaycob Yang on 05-27-2025 Globulin (S) [Mass/Vol] 2.9 g/dL 2.2-4.2 [facility] Serum glucose measurement (m ass/volume)Ordered By: Jaycob Yang on 05-27-2025 Glucose [Mass/Vol] 105 mg/dL High 70-99 [facility] Serum or plasma alanine alston otransferase (ALT) measurementOrdered By: Jaycob Yang on 05-27-2025 ALT [Catalytic activity/Vol] 43 U/L <47 [facility] Serum or plasma albumin rell urement (mass/volume)Ordered By: Jaycob Yang on 05-27-2025 Albumin [Mass/Vol] 4.2 g/dL 3.4-4.8 [facility] Serum or plasma albumin/glob ulin mass ratioOrdered By: Jaycob Yang on 05-27-2025 Albumin/Globulin [Mass ratio] 1.5 {ratio} 0.9-2.4 [facility] Serum or plasma alkaline carlin sphatase measurementOrdered By: Jaycob Yang on 05-27-2025 ALP [Catalytic activity/Vol] 93 U/L 40-129 [facility] Serum or plasma calcium rell urement (mass/volume)Ordered By: Jaycob Yang on 05-27-2025 Calcium [Mass/Vol] 9.3 mg/dL 7.6-11.0 [facility] Serum or plasma urea nitroge n measurement (mass/volume)Ordered By: Jaycob Yang on 05-27-2025 Urea nitrogen [Mass/Vol] 17 mg/dL 4-19 [facility] Serum or plasma zinc measure ment (mass/volume)Ordered By: Jaycob Yang on 05-27-2025 Zinc [Mass/Vol] 71 ug/dL 44-115 [facility] Comment on above: Detection Limit = 5P erformed at: [facility] [address] [id number] Director: Jamari Mariee MD, Phone: [phone] Sodium levelOrdered By: Alena Yang on 05-27-2025 Sodium [Moles/Vol] 140 mmol/L 133-145 [facility] TSH DL <= 0.005 mIU/L QnOrde red By: Jaycob Yang on 05-27-2025 TSH Qn 2.650 uIU/mL 0.300-4.20 0 [facility] Thyroid Stim Hormone (TSH)on 05-27-2025 TSH 2.650 uIU/mL Normal 0.300-4.20 0 [facility] Comment on above: Order Comment: Order Date: 05/27/25 Order Info: 0786-1 - CMP Order Info: 3016-3 - TSH Performed By: #### L 3300.9900, L100.0100, L501.9520 #### [facility] [address] [facility] [place], [address] Total proteinOrdered By: Cassia Yang on 05-27-2025 Protein [Mass/Vol] 7.1 g/dL 5.9-8.4 [facility] White blood cell (WBC) count Ordered By: Jaycob Yang on 05-27-2025 WBC (Bld) [#/Vol] 9.0 10*3/uL 4.4-11.0 [facility] Culture, Throaton 05-21-2025 CUT Normal throat mariajose isolated. No beta-hemolytic streptococcus isolated. Normal [facility] Comment on above: Performed By: #### L 503.0106, L501.9520, L501.9985 #### [facility] [address] [place], [address] Throat specimen bacteria jose ntification by cultureOrdered By: Barrington Holguin on 05-19-2025 Bacteria identified Cx Nom (Throat) streptococcus isolated. [facility] EGD Reporton 03-08-2025 EGD Report [facility] Medical Records Department [address] [place] [address] EGD Report MR#: [id number] Acct: [id number] Name: LIBRADO GUILLEN Rep #: [id number] : 1945 79 From: Geovani Ramirez DO PCP: Dr. Jaycob Yang MD Status:[facility] [place] Patient Name: Librado Guillen Procedure Date: 03/08/2025 [...] present medications. Procedure Code(s): --- Professional --- 89260, Esophagogastroduodenoscopy, flexible, transoral; with removal of foreign body(s) CPT copyright 2021 [employer]. All rights reserved. The codes documented in this report are preliminary and upon medical record coder review may be revised to meet current compliance requirements. Geovani Ramirez DO 03/08/2025 6:24:36 PM This report has been signed electronically. Number of Addenda: 0 Note Initiated On: 03/08/2025 5:48 PM 03/08/25 182 Date Geovani Ramirez DO Cosigner Signature: Date (if indicated) CC: Dr. Jaycob Yang MD; Geovani Ramirez DO Date Dictated: 03/08/25 174 Date Transcribed: Research Soil Scientist: HALEY Signed Normal [facility] Emergency Department Summary on 03-08-2025 Emergency Department Summary [facility] Medical Records Department [address] [place] [id number] Emergency Department Summary 03/08/25 MR#: [id number] Acct: [id number] Name: LIBRADO GUILLEN Rep #: [id number] : 1945 79 From: Barrington Sanchez DO PCP: Dr. Jaycob Yang MD Status:[facility] Location: [facility] History of Present Illness Chief Complaint: Foreign [...] it up but did not remove it. [facility] Medical History Zenkers diverticulum BPH (benign prostatic [...] Dr. Ramirez. He (more content not included)... Normal [facility] MR/POSTOP.Dereck 03-08-2025 MR/[facility]OP.[facility] Medical Records Department [address] [place] [address] Anesthesia Postop Eval I 03/08/25 1828 MR#: [id number] Acct: [id number] Name: LIBRADO GUILLEN Rep #: [id number] : 1945 79 From: Barry Kline MD PCP: Dr. Jaycob Yang MD Status:REG [facility] [place] [facility] Y Race: C Location: [place] [address] Anesthesia: Postop Eval I Current Vital Signs [...] completed: Yes 03/08/251829 Date Barry Kline MD Cosigner Signature: Date CC: Signed Normal [facility] MR/[id number] 03-08-2025 [facility] Medical Records Department [address] [place] [address] Anesthesia Postop Eval II 03/08/251829 MR#: [id number] Acct: [id number] Name: LIBRADO GUILLEN Rep #: [id number] : 1945 79 From: Barry Kline MD PCP: Dr. Jaycob Yang MD Status:REG [facility] [place] [facility] Y Race: C Location: [facility] Anesthesia Postop Eval I Sum Postop Eval [...] No Vomiting: No 03/08/25 1830 Date Barry Zhou Signature: Date CC: Signed Normal [facility] .Auto Diffon 02-03-2025 Basophil, Absolute 0.0 10 3/mcL Normal 0.0-0.2 [facility] Comment on above: Performed By: #### G YOEL YANES, GIOVANA, ANEU, TROPHS, LIP, CMP, CBC #### [address] [address] Basophils/100 WBC (Bld) 0.3 % Normal 0.0-2.5 [facility] Comment on above: Performed By: #### G YOEL YANES, GIOVANA, ANEU, TROPHS, LIP, CMP, CBC #### [address] [address] Eosinophil, Absolute 0.0 10 3/mcL Normal 0.0-0.7 [facility] Comment on above: Performed By: #### G YOEL YANES, GIOVANA, ANEU, TROPHS, LIP, CMP, CBC #### [address] [address] Eosinophils/100 WBC (Bld) 0.0 % Normal 0.0-7.0 [facility] Comment on above: Performed By: #### G YOEL YANES, ADIFF, ANEU, TROPHS, LIP, CMP, CBC #### [address] [address] Lymphocyte, Absolute 1.3 10 3/mcL Normal 0.9-4.3 [facility] Comment on above: Performed By: #### G YOEL YANES, ABDIFATAHIFF, ANEU, TROPHS, LIP, CMP, CBC #### [address] [address] Lymphocytes/100 WBC (Bld) 15.5 % Low 20.0-40.0 [facility] Comment on above: Performed By: #### G YOEL YANES, ABDIFATAHIFF, ANEU, TROPHS, LIP, CMP, CBC #### [address] [address] Monocyte, Absolute 0.6 10 3/mcL Normal 0.1-1.4 [facility] Comment on above: Performed By: #### G YOEL YANES, ADIFF, ANEU, TROPHS, LIP, CMP, CBC #### [address] [address] Monocytes/100 WBC (Bld) 7.2 % Normal 2.0-13.0 [facility] Comment on above: Performed By: #### G YOEL YANES, ABDIFATAHIFF, ANEU, TROPHS, LIP, CMP, CBC #### [address] [address] Neutrophils/100 WBC (Bld) 77.0 % High 50.0-75.0 [facility] Comment on above: Performed By: #### G YOEL YANES, ADIFF, ANEU, TROPHS, LIP, CMP, CBC #### [address] [address] .GFRon 02-03-2025 Estimated Glomerular Filtration Rate 67 ml/min/1.73sqm Normal [facility] Comment on above: Result Comment: Stages of [...] results. Performed By: #### G YOEL YANES, ADIFF, ANEU, TROPHS, LIP, CMP, CBC #### [place] [address] .MDWon 02-03-2025 Monocyte Distribution Width 18.09 Normal 0.00-20.00 [facility] Comment on above: Result Comment: For ED adult patients suspected of sepsis, MDW<=20.0 does not rule out sepsis or risk of sepsis Performed By: #### G YOEL YANES, GIOVANA, ANEU, TROPHS, LIP, CMP, CBC #### [place] [address] .NEUABSon 02-03-2025 Neutrophil, Absolute 6.3 10 3/mcL Normal 2.3-8.1 [facility] Comment on above: Performed By: #### G YOEL YANES, GIOVANA, ANEU, TROPHS, LIP, CMP, CBC #### [place] [address] CBCon 02-03-2025 Erythrocyte distribution width (RBC) [Ratio] 13.4 % Normal 11.5-15.5 [facility] Comment on above: Performed By: #### G YOEL YANES, ABDIFATAHIFF, ANEU, TROPHS, LIP, CMP, CBC #### [place] [address] Hematocrit (Bld) [Volume fraction] 40.4 % Normal 40.0-52.0 [facility] Comment on above: Performed By: #### G YOEL YANES, ABDIFATAHIFF, ANEU, TROPHS, LIP, CMP, CBC #### [address] [address] Hgb 14.2 G/dL Normal 13.0-17.5 [facility] Comment on above: Performed By: #### G YOEL YANES, GIOVANA, ANEU, TROPHS, LIP, CMP, CBC #### [place] [address] MCH (RBC) [Entitic mass] 32.1 pg Normal 27.0-33.0 [facility] Comment on above: Performed By: #### G YOEL YANES, GIOVANA, ANEU, TROPHS, LIP, CMP, CBC #### [place] [address] MCHC 35.1 G/dL Normal 32.0-36.0 [facility] Comment on above: Performed By: #### G YOEL YANES, GIOVANA, ANEU, TROPHS, LIP, CMP, CBC #### [place] [address] MCV (RBC) [Entitic vol] 91.3 fL Normal 81.0-100.0 [facility] Comment on above: Performed By: #### G YOEL YANES, GIOVANA, ANEU, TROPHS, LIP, CMP, CBC #### [address] [address] Platelet 190 10 3/mcL Normal 150-450 [facility] Comment on above: Performed By: #### G YOEL YANES, GIOVANA, ANEU, TROPHS, LIP, CMP, CBC #### [place] [address] Platelet mean volume (Bld) [Entitic vol] 7.5 fL Normal 6.4-10.5 [facility] Comment on above: Performed By: #### G YOEL YANES, GIOVANA, ANEU, TROPHS, LIP, CMP, CBC #### [place] [address] RBC 4.42 10 6/mcL Low 4.50-6.00 [facility] Comment on above: Performed By: #### G YOEL YANES, ADIFF, ANEU, TROPHS, LIP, CMP, CBC #### [address] [address] WBC 8.2 10 3/mcL Normal 4.5-10.8 [facility] Comment on above: Performed By: #### G YOEL YANES, GIOVANA, ANEU, TROPHS, LIP, CMP, CBC #### [address] [address] CMPon 02-03-2025 Albumin Level 4.0 G/dL Normal 3.4-4.8 [facility] Comment on above: Performed By: #### G YOEL YANES, GIOVANA, ANEU, TROPHS, LIP, CMP, CBC #### [address] [address] Albumin/Globulin [Mass ratio] 1.2 {ratio} Normal 1.1-2.5 [facility] Comment on above: Performed By: #### G YOEL YANES, GIOVANA, ANEU, TROPHS, LIP, CMP, CBC #### [address] [address] ALP [Catalytic activity/Vol] 100 U/L Normal 40-135 [facility] Comment on above: Performed By: #### G YOEL YANES, GIOVANA, ANEU, TROPHS, LIP, CMP, CBC #### [address] [address] ALT [Catalytic activity/Vol] 47 U/L Normal 16-63 [facility] Comment on above: Performed By: #### G YOEL YANES, ABDIFATAHIFF, ANEU, TROPHS, LIP, CMP, CBC #### [address] [address] AST [Catalytic activity/Vol] 22 U/L Normal 10-40 [facility] Comment on above: Performed By: #### G YOEL YANES, ABDIFATAHIFF, ANEU, TROPHS, LIP, CMP, CBC #### [address] [address] Bili Total 0.5 mg/dL Normal 0.2-1.0 [facility] Comment on above: Result Comment: Use of this assay is not recommended for patients undergoing treatment with eltrombopag due to the potential for falsely elevated results. Performed By: #### G YOEL YANES, GIOVANA, ANEU, TROPHS, LIP, CMP, CBC #### [place] [address] BUN/Creatinine Ratio 14 ratio Normal 7-27 [facility] Comment on above: Performed By: #### G YOEL YANES, GIOVANA, ANEU, TROPHS, LIP, CMP, CBC #### [place] [address] Calcium [Mass/Vol] 8.9 mg/dL Normal 8.4-10.2 [facility] Comment on above: Performed By: #### G YOEL YANES, GIOVANA, ANEU, TROPHS, LIP, CMP, CBC #### [place] [address] Chloride [Moles/Vol] 107 mmol/L Normal 98-107 [facility] Comment on above: Performed By: #### G YOEL YANES, GIOVANA, ANEU, TROPHS, LIP, CMP, CBC #### [place] [address] CO2 [Moles/Vol] 27 mmol/L Normal 23-31 [facility] Comment on above: Performed By: #### G YOEL YANES, GIOVANA, ANEU, TROPHS, LIP, CMP, CBC #### [place] [address] Creatinine [Mass/Vol] 1.13 mg/dL Normal 0.70-1.30 [facility] Comment on above: Result Comment: Test ing performed on Siemens Dimension EXL analyzer using a modified kinetic Henrry technique. Performed By: #### G YOEL YANES, ABDIFATAHIFF, ANEU, TROPHS, LIP, CMP, CBC #### [place] [address] Electrolyte Balance 6.0 mEq/L Normal 4.0-15.0 [facility] Comment on above: Performed By: #### G YOEL YANES, GIOVANA, ANEU, TROPHS, LIP, CMP, CBC #### [address] [address] Globulin 3.3 G/dL Normal 1.5-3.8 [facility] Comment on above: Performed By: #### YOEL JEREZ, GIOVANA, ANEU, TROPHS, LIP, CMP, CBC #### [address] [address] Glucose [Mass/Vol] 106 mg/dL Normal 83-110 [facility] Comment on above: Performed By: #### G YOEL YANES, GIOVANA, ANEU, TROPHS, LIP, CMP, CBC #### [address] [address] Potassium [Moles/Vol] 4.3 mmol/L Normal 3.5-5.1 [facility] Comment on above: Performed By: #### G YOEL YANES, GIOVANA, ANEU, TROPHS, LIP, CMP, CBC #### [address] [address] Sodium [Moles/Vol] 140 mmol/L Normal 136-145 [facility] Comment on above: Performed By: #### YOEL JEREZ, GIOVANA, ANEU, TROPHS, LIP, CMP, CBC #### [address] [address] Total Protein 7.3 G/dL Normal 6.4-8.2 [facility] Comment on above: Performed By: #### YOEL JEREZ, GIOVANA, ANEU, TROPHS, LIP, CMP, CBC #### [address] [address] Urea nitrogen [Mass/Vol] 16 mg/dL Normal 7-18 [facility] Comment on above: Performed By: #### YOEL JEREZ, GIOVANA, ANEU, TROPHS, LIP, CMP, CBC #### [address], [place] [address] CT ABD/PELVIS W/ IV CONTRAST ONLYon 02-03-2025 [...] 5:28:58 PM Ordering Provider: SUNNY CRUZ Normal [facility] LIPon 02-03-2025 Lipase Level 16 U/L Normal 16-77 [facility] Comment on above: Performed By: #### G YOEL YANES, GIOVANA, ANEU, TROPHS, LIP, CMP, CBC #### [place] [address] [place], [place] [address] TROPHSon 02-03-2025 High Sensitivity Troponin I 10 ng/L Normal 0-76 [facility] Comment on above: Result Comment: High Sensitive Troponin I Reference Ranges: Female: 0-51 ng/L Male: 0-76 ng/L Testing performed on BDNA using a homogeneous sandwich chemiluminescent immunoassay based on Pixelligent technology. Performed By: #### G YOEL YANES, GIOVANA, UMBERTO, TROPHS, LIP, CMP, CBC #### [place] [address] [place], [place] [address] UAon 02-03-2025 Color (U) Yellow Normal [facility] Comment on above: Performed By: #### U A ####[place] [address] [place], [place] [address] Glucose (U) [Mass/Vol] Negative Normal Negative [facility] Comment on above: Performed By: #### U A ####[address] [address] Ketones Ql (U) Negative Normal Negative [facility] Comment on above: Performed By: #### U A ####[address] [place], [place] [address] UA Appear Clear Normal Clear [facility] Comment on above: Performed By: #### U A ####[facility] [place], [place] [address] UA Blood Negative Normal Negative [facility] Comment on above: Performed By: #### U A ####[place] [address] UA Leuk Est Negative Normal Negative [facility] Comment on above: Performed By: #### U A ####[facility] [place] [address] UA Nitrite Negative Normal Negative [facility] Comment on above: Performed By: #### U A ####[place] [place] [address] UA pH 7.5 Normal 5.0 - 8.0 [facility] Comment on above: Performed By: #### U A ####[address] [place] [address] UA Protein Negative Normal Negative [facility] Comment on above: Performed By: #### U A ####[facility] [place] [address] UA Spec Grav 1.015 Normal 1.015-1.02 5 [facility] Comment on above: Performed By: #### U A ####[place] [address] UA Specimen Type Clean Catch Normal [facility] Comment on above: Performed By: #### U A ####[facility] [place] [address] UA Urobilinogen 0.2 E.U./dL Normal 0.2-1.0 [facility] Comment on above: Performed By: #### U A ####[place] [address] [place] [address] Urobilinogen (U) [Mass/Vol] Negative Normal Negative [facility] Comment on above: Performed By: #### U A ####[facility] [place] [address] XR CHEST 1 VIEWon 02-03-2025 XR CHEST [...] Date: 02/03/2025 4:55:32 PM Ordering Provider: SUNNY Wahl [facility] SURGICAL PATHOLOGYon 025 CASE REPORT Normal [facility] Comment on above: Order Comment: Anjali elmore Type: TISSUE SPECIMEN Ordering Facility: [facility] Address: ATTN: [place] [address] Result Comment: Surg ica Pathology Report Case: [id number] Authorizing Provider: Gloria Moses MD Collected: 12/10/2024 10:46 AM Ordering Location: [facility] Received: 12/11/2024 10:32 AM [facility] Pathologist: Lorenzo Marinelli MD Specimen: Esophagogastric Junction, Biopsy, Gastroesophageal SP-CL [id number] Performed By: #### S #### [facility] CLIA [id number] [address] [place] [address] [place] CLINICAL HISTORY 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 due for surveillance. Hx of Zenker's repair. Persistent GERD and dypepsia despite max acid supression. R/O Patel's. Normal [facility] Comment on above: Order Comment: Anjali elmore Type: TISSUE SPECIMEN Ordering Facility: [facility] Address: ATTN: [place] [address] Performed By: #### S #### [facility] CLIA [id number] [address] [place] [address] [place] FINAL DIAGNOSIS Normal [facility] Comment on above: Order Comment: Anjali elmore Type: TISSUE SPECIMEN Ordering Facility: [facility] Address: ATTN: [place] [address] Result Comment: A. E sophagogastric junction, biopsy: -Squamo-gastric junctional mucosa with reactive epithelial changes -Negative for intestinal metaplasia Performed By: #### S #### [facility] CLIA [id number] [address] [place] [address] [place] FINAL PERFORMING LAB Normal [facility] Comment on above: Order Comment: Speci men Type: TISSUE SPECIMEN Ordering Facility: [facility] Address: ATTN: LABORATORY, [place] [address] Result Comment: Diag nostic interpretation performed at: [facility], [address] [place] [address] CLIA# [id number] Hide And Skin Classer: Anton Mclean MD Performed By: #### S #### [facility] CLIA [id number] [address] [place] [address] [place] GROSS DESCRIPTION Normal [facility] Comment on above: Order Comment: Speci men Type: TISSUE SPECIMEN Ordering Facility: [facility] Address: ATTN: LABORATORY, [place] [address] Result Comment: A. E sophagogastric Junction, Biopsy Received in formalin are multiple pieces of wray, soft tissue aggregating to 1.6 x 0.6 x 0.1 cm. Totally submitted in two cassettes. Gross examination performed at [facility], [address] [place] [address] AMS December 11, 2024 10:57 AM Performed By: #### S #### [facility] CLIA [id number] [address] [place] [address] [place] Urine Cultureon 11-04-2024 [facility] Order Date: 11/03/24 Order Info: 630-4 - CUUR Culture exhibits no growth. Normal [facility] Comment on above: Performed By: #### L 501.2300, L500.4050, L500.4100, L100.0100 #### [facility] [address] [facility] [place], [address] Urine cultureOrdered By: Valerie Conklin on 11-03-2024 Bacteria identified Cx Nom (U) Culture exhibits no growth. [facility] CNOVon 08-17-2024 CNOV Office Visit (GENSWS ) LIBRADO GUILLEN ([id number]) 1945 M Date Time Provider Department 08/17/24 11:00 AM MALOU VILLAGOMEZ GENPERCYS During your visit today, we recorded the following information about you: Temperature Pulse Blood pressure Weight 97.1 degrees 84/minute 122/80 117.6 kg Height 1.778 m Malou Villagomez APRN.TRIPE FINISHER 08/17/2024 11:42 AM Signed HISTORY AND PHYSICAL Librado Smith Mindy : 1945 REFERR[facility]IC[facility] CHIEF COMPLAINT: Patient presents with: Consult: EGD [...] ulcers/ peptic ulcer disease. Jonas presented to [facility] ED for CP. Cardiac work up [...] DVT of lower extremity (deep venous thrombosis) ([facility]) 07/11/2020 LLE Esophageal reflux Gastroesophageal reflux IBS (irritable bowel syndrome) Meningioma (HCC) right frontal lobe FABIANO (obstructive sleep apnea) compliant with CP (more content not included)... Normal [facility] Stress Reporton 07-02-2024 Stress Report [facility] [address] [place] [address] MR#: [id number] Acct: [id number] Name: LIBRADO GUILLEN Rep #: [id number] : 1945 78 From: Caron Resendiz MD Primary Care: Dr. Jaycob Yang MD Status: REG CLI Referring Dr: Elia Downs MD Sex: M C Stress Test Report Date: 06/30/2024 Procedure: Pharmacologic [...] is 69%. This note was generated with Booshakaation software. It may contain incorrect words, spelling, and punctuation that were not noted in checking the note before signing. 07/02/24 1338 Date Caron Resendiz MD CC: Dr. Jaycob Yang MD; Elia Downs MD Date Dictated: 07/02/241326 Date Transcribed: 07/02/241326 Research Soil Scientist: JIM Signed Normal [facility] Absolute lymphocyte countOrd ered By: ED PROVIDER on 12-09-2023 Lymphocytes Auto (Unsp spec) [#/Vol] 1.54 10*3/uL 0.83-4.51 [facility] Basophil percentageOrdered B y: ED PROVIDER on 12-09-2023 Basophils/100 WBC (Bld) 0.4 % 0-1 [facility] Chloride [Moles/Vol] 109 mmol/L 98-107 [facility] Eosinophils/100 WBC (Bld) 0.0 % 0-5 [facility] Glucose [Mass/Vol] 102 mg/dL 74-106 [facility] Comment on above: Fasting Glucose resu lt from 100 to 125 mg/dL suggests IMPAIRED HOMEOSTASIS per A.D.A. criteria. Neutrophils (Bld) [#/Vol] 7.0 10*3/uL 2.0-7.7 [facility] Neutrophils/100 WBC (Bld) 75.1 % 47-70 [facility] Potassium [Moles/Vol] 4.1 mmol/L 3.5-5.1 [facility] Sodium [Moles/Vol] 142 mmol/L 136-145 [facility] WBC (Bld) [#/Vol] 9.4 10*3/uL 4.4-11.0 [facility] Blood erythrocytes count (nu mber/volume)Ordered By: ED PROVIDER on 12-09-2023 RBC (Bld) [#/Vol] 4.77 10*6/uL 4.6-6.2 [facility] Blood hemoglobin measurement (mass/volume)Ordered By: ED PROVIDER on 12-09-2023 Hemoglobin (Bld) [Mass/Vol] 14.7 g/dL 13.0-16.5 [facility] Blood lymphocytes/100 leukoc ytesOrdered By: ED PROVIDER on 12-09-2023 Lymphocytes/100 WBC (Bld) 16.4 % 19-41 [facility] Blood monocytes/100 leukocyt esOrdered By: ED PROVIDER on 12-09-2023 Monocytes/100 WBC (Bld) 7.2 % 0-10 [facility] Blood platelet mean volumeOr dered By: ED PROVIDER on 12-09-2023 Platelet mean volume (Bld) [Entitic vol] 9.8 fL 6.2-12.0 [facility] Determination of erythrocyte mean corpuscular volume (MCV)Ordered By: ED PROVIDER on 12-09-2023 MCV (RBC) [Entitic vol] 93.5 fL 80-94 [facility] Hematocrit Auto (Bld) [Volum e fraction]Ordered By: ED PROVIDER on 12-09-2023 Hematocrit (Bld) [Volume fraction] 44.6 % 40-54 [facility] - Chemistry and C hemistry - challengeOrdered By: ED PROVIDER on 12-09-2023 CO2 [Moles/Vol] 24.0 mmol/L 21.0-32.0 [facility] Urea nitrogen/Creatinine [Mass ratio] 22.8 mg/mg 10-20 [facility] - Hematology and Cell countsOrdered By: ED PROVIDER on 12-09-2023 Erythrocyte distribution width (RBC) [Entitic vol] 44.6 fL 35.1-43.9 [facility] Erythrocyte distribution width (RBC) [Ratio] 12.9 % 11.6-14.6 [facility] Immature granulocytes/100 WBC (Bld) 0.900 % 0.0-0.9 [facility] Comment on above: IG% - Immature Granu locytes (promyelocytes, myelocytes and metamyelocytes) > 1% indicates that a LEFT SHIFT is Present. MCH (RBC) [Entitic mass] 30.8 pg 27.0-32.0 [facility] Nucleated RBC/100 WBC (Bld) [Ratio] 0 % 0-5 [facility] MCHC Auto (RBC) [Mass/Vol]Or dered By: ED PROVIDER on 12-09-2023 MCHC (RBC) [Mass/Vol] 33.0 g/dL 32-36 [facility] No Panel InformationOrdered By: ED PROVIDER on 12-09-2023 Troponin I High Sensitivity 15 pg/mL 3.0-78.0 [facility] Comment on above: Please Note: [place] t Units and Gender Specific Reference Ranges. For more information see Policy Stat Procedure Smock High Sensitivity Troponin (TNIH) and attachments. Estimated Creatinine Clearance Calc 69.10 ml/min [facility] Estimated GFR (MDRD) Amer 80 mL/min >60 [facility] Comment on above: GFR Calc Estimated GFR (MDRD) Non-Af Amer 66 mL/min >60 [facility] Comment on above: Non- GFR Calc No Panel InformationOrdered By: Beata Blancas on 12-09-2023 D-Dimer Quantitative (PE/DVT) 0.47 FEU/ug/m 0.27-0.49 [facility] Comment on above: NORMAL D-Dimer level (<0.50) indicates no DVT or PE. Platelets bldOrdered By: ED PROVIDER on 12-09-2023 Platelets (Bld) [#/Vol] 194 10*3/uL 150-450 [facility] Serum or plasma calcium rell urement (mass/volume)Ordered By: ED PROVIDER on 12-09-2023 Calcium [Mass/Vol] 9.1 mg/dL 8.5-10.1 [facility] Serum or plasma creatinine m easurement (mass/volume)Ordered By: ED PROVIDER on 12-09-2023 Creatinine [Mass/Vol] 1.14 mg/dL 0.70-1.30 [facility] Comment on above: The validity of the calculated GFR & GFRAA in patients over 70 years has not been determined. Clinical correlation is essential. Serum or plasma urea nitroge n measurement (mass/volume)Ordered By: ED PROVIDER on 12-09-2023 Urea nitrogen [Mass/Vol] 26 mg/dL 7-18 [facility] Thin prep Papanicolaou smear with manual screeningOrdered By: ED PROVIDER on 12-09-2023 Thin prep Papanicolaou smear with manual screening 9 - [facility] Absolute lymphocyte countOrd ered By: Marlene Corea on 04-25-2023 Lymphocytes Auto (Unsp spec) [#/Vol] 1.38 10*3/uL 0.83-4.51 [facility] Basophil percentageOrdered B y: Marlene Corea on 04-25-2023 Basophils/100 WBC (Bld) 0.3 % 0-1 [facility] Bilirubin [Mass/Vol] 0.40 mg/dL 0.20-1.00 [facility] Comment on above: For patients on eltr ombopag therapy, use of Dimension Smock TBIL is not recommended. Chloride [Moles/Vol] 109 mmol/L 98-107 [facility] Eosinophils/100 WBC (Bld) 0.0 % 0-5 [facility] Glucose [Mass/Vol] 98 mg/dL 74-106 [facility] Neutrophils (Bld) [#/Vol] 6.9 10*3/uL 2.0-7.7 [facility] Neutrophils/100 WBC (Bld) 77.2 % 47-70 [facility] Potassium [Moles/Vol] 4.6 mmol/L 3.5-5.1 [facility] Protein [Mass/Vol] 7.3 g/dL 6.4-8.2 [facility] Sodium [Moles/Vol] 142 mmol/L 136-145 [facility] WBC (Bld) [#/Vol] 8.9 10*3/uL 4.4-11.0 [facility] Blood erythrocytes count (nu mber/volume)Ordered By: Marlene Corea on 04-25-2023 RBC (Bld) [#/Vol] 4.58 10*6/uL 4.6-6.2 [facility] Blood hemoglobin measurement (mass/volume)Ordered By: Marlene Corea on 04-25-2023 Hemoglobin (Bld) [Mass/Vol] 14.1 g/dL 13.0-16.5 [facility] Blood lymphocytes/100 leukoc ytesOrdered By: Marlene Corea on 04-25-2023 Lymphocytes/100 WBC (Bld) 15.5 % 19-41 [facility] Blood monocytes/100 leukocyt esOrdered By: Marlene Corea on 04-25-2023 Monocytes/100 WBC (Bld) 6.4 % 0-10 [facility] Blood platelet mean volumeOr dered By: Marlene Corea on 04-25-2023 Platelet mean volume (Bld) [Entitic vol] 10.4 fL 6.2-12.0 [facility] Determination of erythrocyte mean corpuscular volume (MCV)Ordered By: Marlene Corea on 04-25-2023 MCV (RBC) [Entitic vol] 97.6 fL 80-94 [facility] Hematocrit Auto (Bld) [Volum e fraction]Ordered By: Marlene Corea on 04-25-2023 Hematocrit (Bld) [Volume fraction] 44.7 % 40-54 [facility] - Chemistry and C hemistry - challengeOrdered By: Marlene Corea on 04-25-2023 ALP [Catalytic activity/Vol] 82 U/L 45-117 [facility] ALT [Catalytic activity/Vol] 34 U/L 16-61 [facility] CO2 [Moles/Vol] 27.0 mmol/L 21.0-32.0 [facility] Cobalamin (Vitamin B12) [Mass/Vol] 353 pg/mL 211-911 [facility] Globulin (S) [Mass/Vol] 3.5 g/dL 2.2-4.2 [facility] Magnesium [Mass/Vol] 2.5 mg/dL 1.6-2.6 [facility] Urea nitrogen/Creatinine [Mass ratio] 16.1 mg/mg 10-20 [facility] - Hematology and Cell countsOrdered By: Marlene Corea on 04-25-2023 Erythrocyte distribution width (RBC) [Entitic vol] 45.7 fL 35.1-43.9 [facility] Erythrocyte distribution width (RBC) [Ratio] 12.8 % 11.6-14.6 [facility] Immature granulocytes/100 WBC (Bld) 0.600 % 0.0-0.9 [facility] Comment on above: IG% - Immature Granu locytes (promyelocytes, myelocytes and metamyelocytes) > 1% indicates that a LEFT SHIFT is Present. MCH (RBC) [Entitic mass] 30.8 pg 27.0-32.0 [facility] Nucleated RBC/100 WBC (Bld) [Ratio] 0 % 0-5 [facility] MCHC Auto (RBC) [Mass/Vol]Or dered By: Marlene Corea on 04-25-2023 MCHC (RBC) [Mass/Vol] 31.5 g/dL 32-36 [facility] No Panel InformationOrdered By: Marlene Corea on 04-25-2023 Estimated GFR (MDRD) Amer 82 mL/min >60 [facility] Comment on above: GFR Calc Estimated GFR (MDRD) Non-Af Amer 68 mL/min >60 [facility] Comment on above: Non- GFR Calc Thyroid Stimulating Hormone (TSH) 1.10 uIU/mL 0.358-3.74 [facility] Vitamin D 25-Hydroxy 34.4 ng/mL [facility] Comment on above: Vitamin D 25(OH) Sta tus Range Deficiency <20 ng/mL (50nmol/L) Insufficiency 20 - 30 ng/mL (50 - 75 nmol/L) Sufficiency 30 - 100 ng/mL (75 - 250 nmol/L) Toxicity >100 ng/mL (>250 nmol/L) Platelets bldOrdered By: Nestor Corea on 04-25-2023 Platelets (Bld) [#/Vol] 208 10*3/uL 150-450 [facility] Serum or plasma albumin rell urement (mass/volume)Ordered By: Marlene Corea on 04-25-2023 Albumin [Mass/Vol] 3.8 g/dL 3.2-5.0 [facility] Serum or plasma albumin/glob ulin mass ratioOrdered By: Marlene Corea on 04-25-2023 Albumin/Globulin [Mass ratio] 1.1 {ratio} 0.9-2.4 [facility] Serum or plasma calcium rell urement (mass/volume)Ordered By: Marlene Corea on 04-25-2023 Calcium [Mass/Vol] 8.8 mg/dL 8.5-10.1 [facility] Serum or plasma creatinine m easurement (mass/volume)Ordered By: Marlene Corea on 04-25-2023 Creatinine [Mass/Vol] 1.12 mg/dL 0.70-1.30 [facility] Comment on above: The validity of the calculated GFR & GFRAA in patients over 70 years has not been determined. Clinical correlation is essential. Serum or plasma urea nitroge n measurement (mass/volume)Ordered By: Marlene Corea on 04-25-2023 Urea nitrogen [Mass/Vol] 18 mg/dL 7-18 [facility] Thin prep Papanicolaou smear with manual screeningOrdered By: Marlene Corea on 04-25-2023 Thin prep Papanicolaou smear with manual screening 19 U/L 15-37 [facility] Thin prep Papanicolaou smear with manual screening 6 5-15 [facility] Absolute lymphocyte countOrd ered By: Dr. Alcala on 01-07-2023 Lymphocytes Auto (Unsp spec) [#/Vol] 1.07 10*3/uL 0.83-4.51 [facility] Basophil percentageOrdered B y: Dr. Alcala on 01-07-2023 Basophils/100 WBC (Bld) 0.1 % 0-1 [facility] Chloride [Moles/Vol] 110 mmol/L 98-107 [facility] Eosinophils/100 WBC (Bld) 0.0 % 0-5 [facility] Glucose [Mass/Vol] 112 mg/dL 74-106 [facility] Comment on above: Fasting Glucose resu lt from 100 to 125 mg/dL suggests IMPAIRED HOMEOSTASIS per A.D.A. criteria. Neutrophils (Bld) [#/Vol] 6.0 10*3/uL 2.0-7.7 [facility] Neutrophils/100 WBC (Bld) 78.4 % 47-70 [facility] Potassium [Moles/Vol] 4.4 mmol/L 3.5-5.1 [facility] Sodium [Moles/Vol] 142 mmol/L 136-145 [facility] WBC (Bld) [#/Vol] 7.7 10*3/uL 4.4-11.0 [facility] Blood erythrocytes count (nu mber/volume)Ordered By: Dr. Alcala on 01-07-2023 RBC (Bld) [#/Vol] 4.54 10*6/uL 4.6-6.2 [facility] Blood hemoglobin measurement (mass/volume)Ordered By: Dr. Alcala on 01-07-2023 Hemoglobin (Bld) [Mass/Vol] 14.5 g/dL 13.0-16.5 [facility] Blood lymphocytes/100 leukoc ytesOrdered By: Dr. Alcala on 01-07-2023 Lymphocytes/100 WBC (Bld) 13.9 % 19-41 [facility] Blood monocytes/100 leukocyt esOrdered By: Dr. Alcala on 01-07-2023 Monocytes/100 WBC (Bld) 6.9 % 0-10 [facility] Blood platelet mean volumeOr dered By: Dr. Alcala on 01-07-2023 Platelet mean volume (Bld) [Entitic vol] 9.6 fL 6.2-12.0 [facility] Determination of erythrocyte mean corpuscular volume (MCV)Ordered By: Dr. Alcala on 01-07-2023 MCV (RBC) [Entitic vol] 93.8 fL 80-94 [facility] Hematocrit Auto (Bld) [Volum e fraction]Ordered By: Dr. Alcala on 01-07-2023 Hematocrit (Bld) [Volume fraction] 42.6 % 40-54 [facility] - Chemistry and C hemistry - challengeOrdered By: Dr. Alcala on 01-07-2023 CO2 [Moles/Vol] 29.0 mmol/L 21.0-32.0 [facility] Urea nitrogen/Creatinine [Mass ratio] 16.5 mg/mg 10-20 [facility] - Hematology and Cell countsOrdered By: Dr. Alcala on 01-07-2023 Erythrocyte distribution width (RBC) [Entitic vol] 44.3 fL 35.1-43.9 [facility] Erythrocyte distribution width (RBC) [Ratio] 12.8 % 11.6-14.6 [facility] Immature granulocytes/100 WBC (Bld) 0.700 % 0.0-0.9 [facility] Comment on above: IG% - Immature Granu locytes (promyelocytes, myelocytes and metamyelocytes) > 1% indicates that a LEFT SHIFT is Present. MCH (RBC) [Entitic mass] 31.9 pg 27.0-32.0 [facility] Nucleated RBC/100 WBC (Bld) [Ratio] 0 % 0-5 [facility] MCHC Auto (RBC) [Mass/Vol]Or dered By: Dr. Alcala on 01-07-2023 MCHC (RBC) [Mass/Vol] 34.0 g/dL 32-36 [facility] No Panel InformationOrdered By: Dr. Alcala on 01-07-2023 Estimated Creatinine Clearance Calc 63.98 ml/min [facility] Estimated GFR (MDRD) Amer 91 mL/min >60 [facility] Comment on above: GFR Calc Estimated GFR (MDRD) Non-Af Amer 75 mL/min >60 [facility] Comment on above: Non- GFR Calc Troponin I High Sensitivity 10 pg/mL 3.0-78.0 [facility] Comment on above: Please Note: New [place] t Units and Gender Specific Reference Ranges. For more information see Policy Stat Procedure Smock High Sensitivity Troponin (TNIH) and attachments. Platelets bldOrdered By: Dr. Alcala on 01-07-2023 Platelets (Bld) [#/Vol] 187 10*3/uL 150-450 [facility] Serum or plasma calcium rell urement (mass/volume)Ordered By: Dr. Alcala on 01-07-2023 Calcium [Mass/Vol] 9.3 mg/dL 8.5-10.1 [facility] Serum or plasma creatinine m easurement (mass/volume)Ordered By: Dr. Alcala on 01-07-2023 Creatinine [Mass/Vol] 1.03 mg/dL 0.70-1.30 [facility] Comment on above: The validity of the calculated GFR & GFRAA in patients over 70 years has not been determined. Clinical correlation is essential. Serum or plasma urea nitroge n measurement (mass/volume)Ordered By: Dr. Alcala on 01-07-2023 Urea nitrogen [Mass/Vol] 17 mg/dL 7-18 [facility] Thin prep Papanicolaou smear with manual screeningOrdered By: Dr. Alcala on 01-07-2023 Thin prep Papanicolaou smear with manual screening 3 5-15 [facility] Absolute lymphocyte countOrd ered By: Markus Hugo on 10-12-2022 Lymphocytes Auto (Unsp spec) [#/Vol] 1.58 10*3/uL 0.83-4.51 [facility] Basophil percentageOrdered B y: Markus Hugo on 10-12-2022 Basophils/100 WBC (Bld) 0.5 % 0-1 [facility] Bilirubin [Mass/Vol] 0.40 mg/dL 0.20-1.00 [facility] Comment on above: For patients on eltr ombopag therapy, use of Dimension Smock TBIL is not recommended. Chloride [Moles/Vol] 110 mmol/L 98-107 [facility] Eosinophils/100 WBC (Bld) 0.0 % 0-5 [facility] Glucose [Mass/Vol] 108 mg/dL 74-106 [facility] Comment on above: Fasting Glucose resu lt from 100 to 125 mg/dL suggests IMPAIRED HOMEOSTASIS per A.D.A. criteria. Neutrophils (Bld) [#/Vol] 5.8 10*3/uL 2.0-7.7 [facility] Neutrophils/100 WBC (Bld) 70.7 % 47-70 [facility] Potassium [Moles/Vol] 4.1 mmol/L 3.5-5.1 [facility] Protein [Mass/Vol] 7.3 g/dL 6.4-8.2 [facility] Sodium [Moles/Vol] 144 mmol/L 136-145 [facility] WBC (Bld) [#/Vol] 8.3 10*3/uL 4.4-11.0 [facility] Blood erythrocytes count (nu mber/volume)Ordered By: Markus Hugo on 10-12-2022 RBC (Bld) [#/Vol] 4.70 10*6/uL 4.6-6.2 [facility] Blood hemoglobin measurement (mass/volume)Ordered By: Markus Hugo on 10-12-2022 Hemoglobin (Bld) [Mass/Vol] 14.5 g/dL 13.0-16.5 [facility] Blood lymphocytes/100 leukoc ytesOrdered By: Markus Hugo on 10-12-2022 Lymphocytes/100 WBC (Bld) 19.1 % 19-41 [facility] Blood monocytes/100 leukocyt esOrdered By: Markus Hugo on 10-12-2022 Monocytes/100 WBC (Bld) 8.9 % 0-10 [facility] Blood platelet mean volumeOr dered By: Markus Hugo on 10-12-2022 Platelet mean volume (Bld) [Entitic vol] 9.8 fL 6.2-12.0 [facility] Determination of erythrocyte mean corpuscular volume (MCV)Ordered By: Markus Hugo on 10-12-2022 MCV (RBC) [Entitic vol] 94.9 fL 80-94 [facility] Direct bilirubinOrdered By: Markus Hugo on 10-12-2022 Bilirubin.direct [Mass/Vol] 0.16 mg/dL 0.00-0.30 [facility] Hematocrit Auto (Bld) [Volum e fraction]Ordered By: Markus Hugo on 10-12-2022 Hematocrit (Bld) [Volume fraction] 44.6 % 40-54 [facility] - Chemistry and C hemistry - challengeOrdered By: Markus Hugo on 10-12-2022 ALP [Catalytic activity/Vol] 97 U/L 45-117 [facility] ALT [Catalytic activity/Vol] 53 U/L 16-61 [facility] CO2 [Moles/Vol] 26.0 mmol/L 21.0-32.0 [facility] Globulin (S) [Mass/Vol] 3.6 g/dL 2.2-4.2 [facility] Lipase [Catalytic activity/Vol] 65 U/L 73-393 [facility] Natriuretic peptide B (Bld) [Mass/Vol] 23.1 pg/mL 0-100 [facility] Urea nitrogen/Creatinine [Mass ratio] 19.1 mg/mg 10-20 [facility] - Hematology and Cell countsOrdered By: Markus Hugo on 10-12-2022 Erythrocyte distribution width (RBC) [Entitic vol] 45.2 fL 35.1-43.9 [facility] Erythrocyte distribution width (RBC) [Ratio] 12.9 % 11.6-14.6 [facility] Immature granulocytes/100 WBC (Bld) 0.800 % 0.0-0.9 [facility] Comment on above: IG% - Immature Granu locytes (promyelocytes, myelocytes and metamyelocytes) > 1% indicates that a LEFT SHIFT is Present. MCH (RBC) [Entitic mass] 30.9 pg 27.0-32.0 [facility] Nucleated RBC/100 WBC (Bld) [Ratio] 0 % 0-5 [facility] MCHC Auto (RBC) [Mass/Vol]Or dered By: Markus Hugo on 10-12-2022 MCHC (RBC) [Mass/Vol] 32.5 g/dL 32-36 [facility] No Panel InformationOrdered By: Markus Hugo on 10-12-2022 Troponin I High Sensitivity 17 pg/mL 3.0-78.0 [facility] Comment on above: Please Note: New [place] t Units and Gender Specific Reference Ranges. For more information see Policy Stat Procedure Smock High Sensitivity Troponin (TNIH) and attachments. D-Dimer Quantitative (PE/DVT) 0.56 FEU/ug/m 0.27-0.49 [facility] Comment on above: CRITICAL VALUE VERIF IED. CALLED TO JUDITH STUBBS RN ED10/12/22 2016 Ar Cotto.RESULTS READ BACK BY SAME . D-Dimer ELEVATED (>0.49): Additional studies and clinicalassessments are indicated to conclude diagnosis of:Deep Vein Thrombosis (DVT) or Pulmonary Embolism (PE) Estimated Creatinine Clearance Calc 59.91 ml/min [facility] Estimated GFR (MDRD) Amer 84 mL/min >60 [facility] Comment on above: GFR Calc Estimated GFR (MDRD) Non-Af Amer 69 mL/min >60 [facility] Comment on above: Non- GFR Calc Platelets bldOrdered By: Selene Hugo on 10-12-2022 Platelets (Bld) [#/Vol] 206 10*3/uL 150-450 [facility] Serum or plasma albumin rell urement (mass/volume)Ordered By: Markus Hugo on 10-12-2022 Albumin [Mass/Vol] 3.7 g/dL 3.2-5.0 [facility] Serum or plasma calcium rell urement (mass/volume)Ordered By: Markus Hugo on 10-12-2022 Calcium [Mass/Vol] 9.0 mg/dL 8.5-10.1 [facility] Serum or plasma creatinine m easurement (mass/volume)Ordered By: Markus Hugo on 10-12-2022 Creatinine [Mass/Vol] 1.10 mg/dL 0.70-1.30 [facility] Comment on above: The validity of the calculated GFR & GFRAA in patients over 70 years has not been determined. Clinical correlation is essential. Serum or plasma urea nitroge n measurement (mass/volume)Ordered By: Markus Hugo on 10-12-2022 Urea nitrogen [Mass/Vol] 21 mg/dL 7-18 [facility] Thin prep Papanicolaou smear with manual screeningOrdered By: Markus Hugo on 10-12-2022 Thin prep Papanicolaou smear with manual screening 26 U/L 15-37 [facility] Thin prep Papanicolaou smear with manual screening 8 5-15 [facility] CBC + DIFFon 03-16-2022 Baso # 0.00 x10EE3/UL Normal 0.00 - 0.10 [facility] Comment on above: Performed By: #### 2 92958 #### [facility],[address] [place] [address] Basophils/100 WBC (Bld) 0.3 % Normal 0.0 - 2.0 [facility] Comment on above: Performed By: #### 2 [id number] #### [facility],[address] [place] [address] CBC + DIFF Normal [facility] Comment on above: Result Comment: CBC- COMPLETE BLOOD COUNT Performed By: #### 2 53840 #### [place] [address] EO # 0.00 x10EE3/UL Normal 0.00 - 0.50 [facility] Comment on above: Performed By: #### 2 88135 #### [place] [address] Eosinophils/100 WBC (Bld) 0.0 % Normal 0.0 - 7.0 [facility] Comment on above: Performed By: #### 2 65136 #### [place] [address] Erythrocyte distribution width (RBC) [Ratio] 13.0 % Normal 12.0 - 15.6 [facility] Comment on above: Performed By: #### 2 07834 #### [place] [address] Hematocrit (Bld) [Volume fraction] 41.6 % Normal 40.0 - 52.0 [facility] Comment on above: Performed By: #### 2 55651 #### [place] [address] Hemoglobin (Bld) [Mass/Vol] 14.3 g/dL Normal 13.0 - 17.5 [facility] Comment on above: Performed By: #### 2 79829 #### [address] [address] Lymph # 1.70 x10EE3/UL Normal 0.80 - 2.80 [facility] Comment on above: Performed By: #### 2 19908 #### [facility],[address] [place] [address] Lymphocytes/100 WBC (Bld) 25.0 % Normal 20.0 - 45.0 [facility] Comment on above: Performed By: #### 2 71600 #### [facility],[address] [place] [address] MANUAL DIFF N/A Normal [facility] Comment on above: Performed By: #### 2 63430 #### [facility],[address] [place] [address] MCH (RBC) [Entitic mass] 31 pg Normal 27 - 33 [facility] Comment on above: Performed By: #### 2 62817 #### [facility],[address] [place] [address] MCHC 34 X10 3 Normal 32 - 36 [facility] Comment on above: Performed By: #### 2 91597 #### [facility],[address] [place] [address] MCV (RBC) [Entitic vol] 91 fL Normal 81 - 98 [facility] Comment on above: Performed By: #### 2 78585 #### [facility],[address] [place] [address] [place] # 0.60 x10EE3/UL Normal 0.20 - 1.00 [facility] Comment on above: Performed By: #### 2 91811 #### [place] [address] MONOS % 8.6 % Normal 0.0 - 10.0 [facility] Comment on above: Performed By: #### 2 37296 #### [facility],[address] [place] [address] Morphology Jeronimo (Bld) [Interp] N/A Normal [facility] Comment on above: Performed By: #### 2 48549 #### [facility],[address] [place] [address] Neut # 4.40 x10EE3/UL Normal 1.50 - 7.10 [facility] Comment on above: Performed By: #### 2 15616 #### [facility],[address] [place] [address] Neutrophils/100 WBC (Bld) 66.1 % Normal 46.0 - 76.0 [facility] Comment on above: Performed By: #### 2 15290 #### [facility],[address] [place] [address] PLATELET 209 x10EE3/UL Normal 150 - 450 [facility] Comment on above: Performed By: #### 2 74179 #### [facility],[address] [place] [address] Platelet mean volume (Bld) [Entitic vol] 8.2 fL Normal 6.4 - 10.5 [facility] Comment on above: Result Comment: AUTO MATED DIFFERENTIAL Performed By: #### 2 87078 #### [facility],[address] [place] [address] RBC 4.59 x 10EE6/UL Normal 4.50 - 6.00 [facility] Comment on above: Performed By: #### 2 80840 #### [facility],[address] [place] [address] WBC 6.7 x 10EE3/UL Normal 4.5 - 10.8 [facility] Comment on above: Performed By: #### 2 23601 #### [facility],[address] [place] [address] CMP with eGFRon 03-16-2022 AGE 76 years Normal [facility] Comment on above: Performed By: #### 2 28591 #### [facility],[address] [place] [address] Albumin [Mass/Vol] 3.6 g/dL Normal 3.4 - 5.0 [facility] Comment on above: Performed By: #### 2 11517 #### [facility],[address] [place] [address] Albumin/Globulin [Mass ratio] 1.1 {ratio} Normal 0.9 - 1.6 [facility] Comment on above: Performed By: #### 2 21083 #### [facility],[address] [place] [address] ALK PHOS 100 U/L Normal 46 - 116 [facility] Comment on above: Performed By: #### 2 53621 #### [facility],[address] [place] [address] ALT [Catalytic activity/Vol] 34 U/L Normal 16 - 63 [facility] Comment on above: Performed By: #### 2 59980 #### [facility],[address] [place] [address] Anion gap [Moles/Vol] 11 mmol/L Normal 10 - 20 [facility] Comment on above: Performed By: #### 2 09145 #### [facility],[address] [place] [address]855 AST [Catalytic activity/Vol] 20 U/L Normal 15 - 37 [facility] Comment on above: Performed By: #### 2 71791 #### [facility],[address] [place] [address] B/C RATIO 16 ratio Normal 0 - 30 [facility] Comment on above: Performed By: #### 2 62117 #### [facility],[address] [place] [address] Bilirubin [Mass/Vol] 0.7 mg/dL Normal 0.2 - 1.0 [facility] Comment on above: Performed By: #### 2 21441 #### [facility],[address] [place] [address] Calcium [Mass/Vol] 8.6 mg/dL Normal 8.5 - 10.1 [facility] Comment on above: Performed By: #### 2 69031 #### [facility],[address] [place] [address] Chloride [Moles/Vol] 105 mmol/L Normal 98 - 107 [facility] Comment on above: Performed By: #### 2 86610 #### [facility],[address] [place] [address] CMP with eGFR Normal [facility] Comment on above: Result Comment: COMP REHENSIVE METABOLIC PANEL Performed By: #### 2 44365 #### [facility],[address] [place] [address] CO2 [Moles/Vol] 28.0 mmol/L Normal 21.0 - 32.0 [facility] Comment on above: Performed By: #### 2 61522 #### [facility],[address] [place] [address] Creatinine [Mass/Vol] 1.11 mg/dL Normal 0.70 - 1.30 [facility] Comment on above: Performed By: #### 2 11281 #### [facility],[address] [place] [address] GFR/1.73 sq M.predicted among non-blacks MDRD (S/P/Bld) [Vol rate/Area] mL/min/{1.73_m2} Normal 60 - 999 [facility] Comment on above: Performed By: #### 2 37722 #### [facility],[address] [place] [address] Result Comment: ACCO RDING TO THE NATIONAL KIDNEY DISEASE EDUCATION PROGRAM(NKDE), A NORMAL eGFR IS A VALUE GREATER THAN OR EQUAL TO 60 ML/MIN/1.73 SQ METERS. CHRONIC KIDNEY DISEASE: <60mL/MIN/1.73 SQ METERS KIDNEY FAILURE: <15mL/MIN/1.73 SQ METERS THIS TEST SHOULD ONLY BE USED FOR PATIENTS 18 YEARS OF AGE AND OLDER. Globulin (S) [Mass/Vol] 3.3 g/dL Normal 1.5 - 3.8 [facility] Comment on above: Performed By: #### 2 90002 #### [facility],[address] [place] [address] Glucose [Mass/Vol] 96 mg/dL Normal 74 - 106 [facility] Comment on above: Performed By: #### 2 64863 #### [facility],[address] [place] [address] Potassium [Moles/Vol] 4.0 mmol/L Normal 3.5 - 5.1 [facility] Comment on above: Performed By: #### 2 30501 #### [facility],[address] [place] [address] Protein [Mass/Vol] 6.9 g/dL Normal 6.4 - 8.2 [facility] Comment on above: Performed By: #### 2 31147 #### [facility],[address] [place] [address] Sodium [Moles/Vol] 140 mmol/L Normal 136 - 145 [facility] Comment on above: Performed By: #### 2 93505 #### [facility],[address] [place] [address] Urea nitrogen [Mass/Vol] 18 mg/dL Normal 7 - 18 [facility] Comment on above: Performed By: #### 2 92605 #### [facility],[address] [place] [address] CBC + DIFFon 02-21-2022 Baso # 0.00 x10EE3/UL Normal 0.00 - 0.10 [facility] Comment on above: Performed By: #### 2 56654 #### [facility],[address] [place] [address] Basophils/100 WBC (Bld) 0.2 % Normal 0.0 - 2.0 [facility] Comment on above: Performed By: #### 2 21724 #### [facility],[address] [place] [address] CBC + DIFF Normal [facility] Comment on above: Result Comment: CBC- COMPLETE BLOOD COUNT Performed By: #### 2 30223 #### [facility],[address] [place] [address] EO # 0.00 x10EE3/UL Normal 0.00 - 0.50 [facility] Comment on above: Performed By: #### 2 47865 #### [facility],[address] [place] [address] Eosinophils/100 WBC (Bld) 0.0 % Normal 0.0 - 7.0 [facility] Comment on above: Performed By: #### 2 90715 #### [facility],[address] [place] [address] Erythrocyte distribution width (RBC) [Ratio] 13.2 % Normal 12.0 - 15.6 [facility] Comment on above: Performed By: #### 2 03279 #### [facility],[address] [place] [address] Hematocrit (Bld) [Volume fraction] 41.4 % Normal 40.0 - 52.0 [facility] Comment on above: Performed By: #### 2 92580 #### [facility],[address] [place] [address] Hemoglobin (Bld) [Mass/Vol] 14.0 g/dL Normal 13.0 - 17.5 [facility] Comment on above: Performed By: #### 2 29644 #### [facility],[address] [place] [address] Lymph # 1.40 x10EE3/UL Normal 0.80 - 2.80 [facility] Comment on above: Performed By: #### 2 05811 #### [facility],[address] [place] [address] Lymphocytes/100 WBC (Bld) 24.1 % Normal 20.0 - 45.0 [facility] Comment on above: Performed By: #### 2 12934 #### [facility],[address] [place] [address] MANUAL DIFF N/A Normal [facility] Comment on above: Performed By: #### 2 63369 #### [facility],[address] [place] [address] MCH (RBC) [Entitic mass] 31 pg Normal 27 - 33 [facility] Comment on above: Performed By: #### 2 98311 #### [place] [address] MCHC 34 X10 3 Normal 32 - 36 [facility] Comment on above: Performed By: #### 2 09930 #### [place] [address] MCV (RBC) [Entitic vol] 91 fL Normal 81 - 98 [facility] Comment on above: Performed By: #### 2 79136 #### [facility],[address] [place] [address] [place] # 0.50 x10EE3/UL Normal 0.20 - 1.00 [facility] Comment on above: Performed By: #### 2 25959 #### [facility],[address] [place] [address] MONOS % 8.6 % Normal 0.0 - 10.0 [facility] Comment on above: Performed By: #### 2 68918 #### [place] [address] Morphology Jeronimo (Bld) [Interp] N/A Normal [facility] Comment on above: Performed By: #### 2 89817 #### [place] [address] Neut # 4.00 x10EE3/UL Normal 1.50 - 7.10 [facility] Comment on above: Performed By: #### 2 67872 #### [facility],[address] [place] [address] Neutrophils/100 WBC (Bld) 67.1 % Normal 46.0 - 76.0 [facility] Comment on above: Performed By: #### 2 81978 #### [facility],[address] [place] [address] PLATELET 202 x10EE3/UL Normal 150 - 450 [facility] Comment on above: Performed By: #### 2 70587 #### [address] [address] Platelet mean volume (Bld) [Entitic vol] 8.0 fL Normal 6.4 - 10.5 [facility] Comment on above: Result Comment: AUTO MATED DIFFERENTIAL Performed By: #### 2 09408 #### [address] [address] RBC 4.54 x 10EE6/UL Normal 4.50 - 6.00 [facility] Comment on above: Performed By: #### 2 32437 #### [facility],[address] [place] [address] WBC 5.9 x 10EE3/UL Normal 4.5 - 10.8 [facility] Comment on above: Performed By: #### 2 58259 #### [facility],[address] [place] [address]60 CHEST 2 VIEWSon 02-21-2022 CHEST 2 VIEWS [place] [address] Patient: LIBRADO GUILLEN Phone#: : 1945 Age: 76 Gender: M Pt. Type: Out Account: [id number] Location: Ordering: DOMINIQUE HERRERA Exam Date: 02/21/2022/11:19 Family Phys: SHANNAN RAYMUNDO Charge Code: 778266 Physician: [place] Order #: [id number] DLP Dose#: PROCEDURE: X-RAY CHEST 2 VIEWS [...] Sal MD on 02/21/2022 at 11:31 Normal [facility] CMP with eGFRon 02-21-2022 AGE 76 years Normal [facility] Comment on above: Performed By: #### 2 13000 #### [place] [id number] Albumin [Mass/Vol] 3.5 g/dL Normal 3.4 - 5.0 [facility] Comment on above: Performed By: #### 2 41420 #### [address] [address] Albumin/Globulin [Mass ratio] 1.0 {ratio} Normal 0.9 - 1.6 [facility] Comment on above: Performed By: #### 2 33326 #### [address] [address] ALK PHOS 101 U/L Normal 46 - 116 [facility] Comment on above: Performed By: #### 2 88088 #### [address] [address] ALT [Catalytic activity/Vol] 38 U/L Normal 16 - 63 [facility] Comment on above: Performed By: #### 2 97442 #### [address] [address] Anion gap [Moles/Vol] 11 mmol/L Normal 10 - 20 [facility] Comment on above: Performed By: #### 2 25612 #### [facility],[address] [place] [address] AST [Catalytic activity/Vol] 22 U/L Normal 15 - 37 [facility] Comment on above: Performed By: #### 2 29755 #### [facility],[address] [place] [address] B/C RATIO 18 ratio Normal 0 - 30 [facility] Comment on above: Performed By: #### 2 36952 #### [facility],[address] [place] [address] Bilirubin [Mass/Vol] 0.5 mg/dL Normal 0.2 - 1.0 [facility] Comment on above: Performed By: #### 2 90486 #### [facility],[address] [place] [address] Calcium [Mass/Vol] 8.9 mg/dL Normal 8.5 - 10.1 [facility] Comment on above: Performed By: #### 2 07314 #### [facility],[address] [place] [address] Chloride [Moles/Vol] 106 mmol/L Normal 98 - 107 [facility] Comment on above: Performed By: #### 2 48992 #### [facility],[address] [place] [address] CMP with eGFR Normal [facility] Comment on above: Result Comment: COMP REHENSIVE METABOLIC PANEL Performed By: #### 2 26870 #### [facility],[address] [place] [address] CO2 [Moles/Vol] 28.1 mmol/L Normal 21.0 - 32.0 [facility] Comment on above: Performed By: #### 2 67361 #### [facility],[address] [place] [address] Creatinine [Mass/Vol] 1.13 mg/dL Normal 0.70 - 1.30 [facility] Comment on above: Performed By: #### 2 96096 #### [facility],[address] [place] [address] GFR/1.73 sq M.predicted among non-blacks MDRD (S/P/Bld) [Vol rate/Area] mL/min/{1.73_m2} Normal 60 - 999 [facility] Comment on above: Performed By: #### 2 69568 #### [facility],[address] [place] [address] Result Comment: ACCO RDING TO THE NATIONAL KIDNEY DISEASE EDUCATION PROGRAM(NKDE), A NORMAL eGFR IS A VALUE GREATER THAN OR EQUAL TO 60 ML/MIN/1.73 SQ METERS. CHRONIC KIDNEY DISEASE: <60mL/MIN/1.73 SQ METERS KIDNEY FAILURE: <15mL/MIN/1.73 SQ METERS THIS TEST SHOULD ONLY BE USED FOR PATIENTS 18 YEARS OF AGE AND OLDER. Globulin (S) [Mass/Vol] 3.5 g/dL Normal 1.5 - 3.8 [facility] Comment on above: Performed By: #### 2 96051 #### [facility],[address] [place], [place] [id number] Glucose [Mass/Vol] 106 mg/dL Normal 74 - 106 [facility] Comment on above: Performed By: #### 2 93524 #### [facility],[address] [place], [place] [id number] Potassium [Moles/Vol] 3.8 mmol/L Normal 3.5 - 5.1 [facility] Comment on above: Performed By: #### 2 43249 #### [facility],[address] [place], [place] [id number] Protein [Mass/Vol] 7.0 g/dL Normal 6.4 - 8.2 [facility] Comment on above: Performed By: #### 2 36759 #### [facility],[address] [place] [address] Sodium [Moles/Vol] 141 mmol/L Normal 136 - 145 [facility] Comment on above: Performed By: #### 2 17222 #### [facility],[address] [place] [address] Urea nitrogen [Mass/Vol] 20 mg/dL High 7 - 18 [facility] Comment on above: Performed By: #### 2 57416 #### [facility],[address] [place] [address] Absolute lymphocyte counton 01-31-2022 Lymphocytes Auto (Unsp spec) [#/Vol] 1.10 10*3/uL 0.83-4.51 [facility] Work Phone: Basophil percentageon 2021 Basophils/100 WBC (Bld) 1.4 % 0-1 [facility] Work Phone: Bilirubin [Mass/Vol] 0.50 mg/dL 0.20-1.00 [facility] Work Phone: Comment on above: For patients on eltr ombopag therapy, use of Dimension Smock TBIL is not recommended. Chloride [Moles/Vol] 108 mmol/L 98-107 [facility] Work Phone: Eosinophils/100 WBC (Bld) 3.5 % 0-5 [facility] Work Phone: Glucose [Mass/Vol] 71 mg/dL 74-106 [facility] Work Phone: Neutrophils (Bld) [#/Vol] 5.1 10*3/uL 2.0-7.7 [facility] Work Phone: Neutrophils/100 WBC (Bld) 69.2 % 47-70 [facility] Work Phone: Potassium [Moles/Vol] 3.9 mmol/L 3.5-5.1 [facility] Work Phone: Protein [Mass/Vol] 7.4 g/dL 6.4-8.2 [facility] Work Phone: Sodium [Moles/Vol] 140 mmol/L 136-145 [facility] Work Phone: WBC (Bld) [#/Vol] 7.3 10*3/uL 4.4-11.0 [facility] Work Phone: Blood erythrocytes count (nu mber/volume)on 01-31-2022 RBC (Bld) [#/Vol] 4.75 10*6/uL 4.6-6.2 [facility] Work Phone: Blood hemoglobin measurement (mass/volume)on 01-31-2022 Hemoglobin (Bld) [Mass/Vol] 14.9 g/dL 13.0-16.5 [facility] Work Phone: Blood lymphocytes/100 leukoc yteson 01-31-2022 Lymphocytes/100 WBC (Bld) 15.0 % 19-41 [facility] Work Phone: Blood monocytes/100 leukocyt eson 01-31-2022 Monocytes/100 WBC (Bld) 10.2 % 0-10 [facility] Work Phone: Blood platelet mean volumeon 01-31-2022 Platelet mean volume (Bld) [Entitic vol] 10.0 fL 6.2-12.0 [facility] Work Phone: Determination of erythrocyte mean corpuscular volume (MCV)on 01-31-2022 MCV (RBC) [Entitic vol] 94.1 fL 80-94 [facility] Work Phone: Hematocrit Auto (Bld) [Volum e fraction]on 01-31-2022 Hematocrit (Bld) [Volume fraction] 44.7 % 40-54 [facility] Work Phone: Laboratory - Chemistry and C hemistry - challengeon 01-31-2022 ALP [Catalytic activity/Vol] 112 U/L 45-117 [facility] Work Phone: ALT [Catalytic activity/Vol] 44 U/L 16-61 [facility] Work Phone: CO2 [Moles/Vol] 26.0 mmol/L 21.0-32.0 [facility] Work Phone: Globulin (S) [Mass/Vol] 3.6 g/dL 2.2-4.2 [facility] Work Phone: Magnesium [Mass/Vol] 2.5 mg/dL 1.6-2.6 [facility] Work Phone: Urea nitrogen/Creatinine [Mass ratio] 19.8 mg/mg 10-20 [facility] Work Phone: Laboratory - Hematology and Cell countson 01-31-2022 Erythrocyte distribution width (RBC) [Entitic vol] 45.1 fL 35.1-43.9 [facility] Work Phone: Erythrocyte distribution width (RBC) [Ratio] 13.1 % 11.6-14.6 [facility] Work Phone: Immature granulocytes/100 WBC (Bld) 0.700 % 0.0-0.9 [facility] Work Phone: Comment on above: IG% - Immature Granu locytes (promyelocytes, myelocytes and metamyelocytes) > 1% indicates that a LEFT SHIFT is Present. MCH (RBC) [Entitic mass] 31.4 pg 27.0-32.0 [facility] Work Phone: Nucleated RBC/100 WBC (Bld) [Ratio] 0 % 0-5 [facility] Work Phone: MCHC Auto (RBC) [Mass/Vol]on 01-31-2022 MCHC (RBC) [Mass/Vol] 33.3 g/dL 32-36 [facility] Work Phone: No Panel Informationon 01-31 Estimated GFR (MDRD) Amer 88 mL/min >60 [facility] Work Phone: Comment on above: GFR Calc Estimated GFR (MDRD) Non-Af Amer 73 mL/min >60 [facility] Work Phone: Comment on above: Non- GFR Calc Thyroid Stimulating Hormone (TSH) 1.89 uIU/mL 0.358-3.74 [facility] Work Phone: Platelets bldon 01-31-2022 Platelets (Bld) [#/Vol] 218 10*3/uL 150-450 [facility] Work Phone: Serum or plasma albumin rell urement (mass/volume)on 01-31-2022 Albumin [Mass/Vol] 3.8 g/dL 3.2-5.0 [facility] Work Phone: Serum or plasma albumin/glob ulin mass ratioon 01-31-2022 Albumin/Globulin [Mass ratio] 1.1 {ratio} 0.9-2.4 [facility] Work Phone: Serum or plasma calcium rell urement (mass/volume)on 01-31-2022 Calcium [Mass/Vol] 8.9 mg/dL 8.5-10.1 [facility] Work Phone: Serum or plasma creatinine m easurement (mass/volume)on 01-31-2022 Creatinine [Mass/Vol] 1.06 mg/dL 0.70-1.30 [facility] Work Phone: Comment on above: The validity of the calculated GFR & GFRAA in patients over 70 years has not been determined. Clinical correlation is essential. Serum or plasma ferritin james surement (mass/volume)on 01-31-2022 Ferritin [Mass/Vol] 49 ng/mL 26-388 [facility] Work Phone: Serum or plasma urea nitroge n measurement (mass/volume)on 01-31-2022 Urea nitrogen [Mass/Vol] 21 mg/dL 7-18 [facility] Work Phone: Thin prep Papanicolaou smear with manual screeningon 01-31-2022 Thin prep Papanicolaou smear with manual screening 24 U/L 15-37 [facility] Work Phone: Thin prep Papanicolaou smear with manual screening 6 5-15 [facility] Work Phone: Absolute lymphocyte counton 11-26-2021 Lymphocytes Auto (Unsp spec) [#/Vol] 1.78 10*3/uL 0.83-4.51 [facility] Work Phone: [phone] Basophil percentageon 2021 Basophils/100 WBC (Bld) 1.0 % 0-1 [facility] Work Phone: Chloride [Moles/Vol] 110 mmol/L 98-107 [facility] Work Phone: Eosinophils/100 WBC (Bld) 4.7 % 0-5 [facility] Work Phone: Glucose [Mass/Vol] 91 mg/dL 74-106 [facility] Work Phone: Comment on above: Please note revised GLUCOSE reference range effective 2017. Neutrophils (Bld) [#/Vol] 3.1 10*3/uL 2.0-7.7 [facility] Work Phone: Neutrophils/100 WBC (Bld) 53.4 % 47-70 [facility] Work Phone: Potassium [Moles/Vol] 3.7 mmol/L 3.5-5.1 [facility] Work Phone: Sodium [Moles/Vol] 142 mmol/L 136-145 [facility] Work Phone: WBC (Bld) [#/Vol] 5.7 10*3/uL 4.4-11.0 [facility] Work Phone: Blood erythrocytes count (nu mber/volume)on 11-26-2021 RBC (Bld) [#/Vol] 4.83 10*6/uL 4.6-6.2 [facility] Work Phone: Blood hemoglobin measurement (mass/volume)on 11-26-2021 Hemoglobin (Bld) [Mass/Vol] 14.7 g/dL 13.0-16.5 [facility] Work Phone: Blood lymphocytes/100 leukoc yteson 11-26-2021 Lymphocytes/100 WBC (Bld) 31.1 % 19-41 [facility] Work Phone: Blood monocytes/100 leukocyt eson 11-26-2021 Monocytes/100 WBC (Bld) 9.1 % 0-10 [facility] Work Phone: [phone] Blood platelet mean volumeon 11-26-2021 Platelet mean volume (Bld) [Entitic vol] 10.0 fL 6.2-12.0 [facility] Work Phone: Determination of erythrocyte mean corpuscular volume (MCV)on 11-26-2021 MCV (RBC) [Entitic vol] 90.1 fL 80-94 [facility] Work Phone: Hematocrit Auto (Bld) [Volum e fraction]on 11-26-2021 Hematocrit (Bld) [Volume fraction] 43.5 % 40-54 [facility] Work Phone: Laboratory - Chemistry and C hemistry - challengeon 11-26-2021 CO2 [Moles/Vol] 26.0 mmol/L 21.0-32.0 [facility] Work Phone: Natriuretic peptide B (Bld) [Mass/Vol] 30.3 pg/mL 0-100 [facility] Work Phone: Urea nitrogen/Creatinine [Mass ratio] 14.2 mg/mg 10-20 [facility] Work Phone: Laboratory - Hematology and Cell countson 11-26-2021 Erythrocyte distribution width (RBC) [Entitic vol] 41.7 fL 35.1-43.9 [facility] Work Phone: [phone] Erythrocyte distribution width (RBC) [Ratio] 12.6 % 11.6-14.6 [facility] Work Phone: Immature granulocytes/100 WBC (Bld) 0.700 % 0.0-0.9 [facility] Work Phone: Comment on above: IG% - Immature Granu locytes (promyelocytes, myelocytes and metamyelocytes) > 1% indicates that a LEFT SHIFT is Present. MCH (RBC) [Entitic mass] 30.4 pg 27.0-32.0 [facility] Work Phone: Nucleated RBC/100 WBC (Bld) [Ratio] 0 % 0-5 [facility] Work Phone: MCHC Auto (RBC) [Mass/Vol]on 11-26-2021 MCHC (RBC) [Mass/Vol] 33.8 g/dL 32-36 [facility] Work Phone: No Panel Informationon 11-26 Troponin I High Sensitivity 16 pg/mL 3.0-78.0 [facility] Work Phone: Comment on above: Please Note: New Aurelia t Units and Gender Specific Reference Ranges. For more information see Policy Stat Procedure Smock High Sensitivity Troponin (TNIH) and attachments. SARS-CoV-2 Antigen (Rapid) [facility] Work Phone: D-Dimer Quantitative (PE/DVT) 3.29 FEU/ug/m 0.27-0.49 [facility] Work Phone: Comment on above: D-Dimer ELEVATED (>0 .49): Additional studies and clinicalassessments are indicated to conclude diagnosis of:Deep Vein Thrombosis (DVT) or Pulmonary Embolism (PE)CRITICAL VALUE VERIFIED. CALLED TO LUIS KIM11/26/21 Senait6 Priya Jean.RESULTS READ BACK BY SAME . Estimated Creatinine Clearance Calc 59.22 ml/min [facility] Work Phone: Estimated GFR (MDRD) Amer 82 mL/min >60 [facility] Work Phone: Comment on above: GFR Calc Estimated GFR (MDRD) Non-Af Amer 67 mL/min >60 [facility] Work Phone: Comment on above: Non- GFR Calc Platelets bldon 11-26-2021 Platelets (Bld) [#/Vol] 208 10*3/uL 150-450 [facility] Work Phone: Serum or plasma calcium rell urement (mass/volume)on 11-26-2021 Calcium [Mass/Vol] 9.3 mg/dL 8.5-10.1 [facility] Work Phone: Serum or plasma creatinine m easurement (mass/volume)on 11-26-2021 Creatinine [Mass/Vol] 1.13 mg/dL 0.70-1.30 [facility] Work Phone: Comment on above: The validity of the calculated GFR & GFRAA in patients over 70 years has not been determined. Clinical correlation is essential. Serum or plasma urea nitroge n measurement (mass/volume)on 11-26-2021 Urea nitrogen [Mass/Vol] 16 mg/dL 7-18 [facility] Work Phone: Thin prep Papanicolaou smear with manual screeningon 11-26-2021 Thin prep Papanicolaou smear with manual screening 6 5-15 [facility] Work Phone: BMPon 05-04-2021 Anion gap [Moles/Vol] 6 mmol/L Normal 5-16 [facility] Comment on above: Order Comment: Campu s: M Performed By: #### L 500.01539, L500.37066 #### [facility] [address] [place] [address] Calcium [Mass/Vol] 9.6 mg/dL Normal 8.5-10.5 [facility] Comment on above: Order Comment: Campu s: M Result Comment: NOTE NEW NORMAL RANGE DUE TO REAGENT CHANGE Performed By: #### L 500.35974, L500.26753 #### [facility] [place] [address] Chloride [Moles/Vol] 109 mmol/L High 98-107 [facility] Comment on above: Order Comment: Campu s: M Performed By: #### L 500.98266, L500.60099 #### [facility] [place] [address] CO2 [Moles/Vol] 26.0 mmol/L Normal 21-32 [facility] Comment on above: Order Comment: Campu s: M Performed By: #### L 500.55982, L5.80850 #### [facility] [address] [place] [address] Creatinine [Mass/Vol] 1.04 mg/dL Normal 0.5-1.4 [facility] Comment on above: Order Comment: Campu s: M Result Comment: NOTE NEW NORMAL RANGE DUE TO REAGENT CHANGE Patients receiving either N-Acetylcysteine (NAC) or Metamizole prior to venipuncture, may have falsely depressed results. Performed By: #### L 500.47474, L5.92736 #### [facility] [address] [place] [address] Glucose [Mass/Vol] 102 mg/dL High 70-100 [facility] Comment on above: Order Comment: Campu s: M Result Comment: 70-1 00- Normal Fasting; 100-125 Impaired Fasting; greater than 126 on more than one result- Diabetes. ADA guidelines. Results may be falsely elevated after the administration of Sulfapyridine. Results may be falsely depressed after the administration of Sulfasalazine. Performed By: #### L 500.36877, L5.30974 #### [facility] [address] [place] [address] Potassium [Moles/Vol] 4.4 mmol/L Normal 3.5-5.1 [facility] Comment on above: Order Comment: Campu s: M Performed By: #### L 500.90264, L5.08736 #### [facility] [address] [place] [address] Sodium [Moles/Vol] 141 mmol/L Normal 136-145 [facility] Comment on above: Order Comment: Campu s: M Performed By: #### L 500.09190, L5.70663 #### [facility] [address] [place] [address] Urea nitrogen [Mass/Vol] 24 mg/dL Normal 7-26 [facility] Comment on above: Order Comment: Campu s: M Performed By: #### L 500.22366, L500.49902 #### [facility] [address] [place] [address] Urea nitrogen/Creatinine [Mass ratio] 23 mg/mg Normal 15-24 [facility] Comment on above: Order Comment: Campu s: M Performed By: #### L 500.42737, L500.12614 #### [facility] [address] [place] [address] CBC W/DIFFon 05-04-2021 BASO ABS 0.10 K/CU MM Normal 0-0.2 [facility] Comment on above: Order Comment: Campu s: M Performed By: #### L 200.78018 #### [facility] [address] [place] [address] Basophils/100 WBC (Bld) 0.9 % Normal 0-2 [facility] Comment on above: Order Comment: Campu s: M Performed By: #### L 200.49464 #### [facility] [address] [place] [address] EOS ABS 0.20 K/CU MM Normal 0-0.5 [facility] Comment on above: Order Comment: Campu s: M Performed By: #### L 200.34815 #### [facility] [address] [place] [address] Eosinophils/100 WBC (Bld) 1.7 % Normal 0-5 [facility] Comment on above: Order Comment: Campu s: M Performed By: #### L 200.48303 #### [facility] [address] [place] [address] Erythrocyte distribution width (RBC) [Ratio] 13.0 % Normal 11-14.5 [facility] Comment on above: Order Comment: Campu s: M Performed By: #### L 200.20636 #### [facility] [address] [place] [address] Hematocrit (Bld) [Volume fraction] 42.8 % Normal 41.0-53.0 [facility] Comment on above: Order Comment: Campu s: M Performed By: #### L 200.13738 #### [facility] [address] [place] [address] Hemoglobin (Bld) [Mass/Vol] 14.2 g/dL Normal 13.5-17.5 [facility] Comment on above: Order Comment: Campu s: M Performed By: #### L 200.29338 #### [facility] [address] [place] [address] IMMATR GRAN ABS 0.10 K/CU MM Normal Less than 2 [facility] Comment on above: Order Comment: Campu s: M Performed By: #### L 200.00430 #### [facility] [address] [place] [address] IMMATURE GRAN % 0.8 % Normal Less than 2 [facility] Comment on above: Order Comment: Campu s: M Performed By: #### L 200.68216 #### [facility] [address] [place] [address] LYMPH ABS 1.10 K/CU MM Normal 0.9-4.4 [facility] Comment on above: Order Comment: Campu s: M Performed By: #### L 200.43429 #### [facility] [address] [place] [address] Lymphocytes/100 WBC (Bld) 11.9 % Low 20-40 [facility] Comment on above: Order Comment: Campu s: M Performed By: #### L 200.80404 #### [facility] [address] [place] [address] MCHC (RBC) [Mass/Vol] 33.2 g/dL Normal 32.0-36.0 [facility] Comment on above: Order Comment: Campu s: M Performed By: #### L 200.38374 #### [facility] [address] [place] [address] MCV (RBC) [Entitic vol] 92.8 fL Normal 80.0-99.0 [facility] Comment on above: Order Comment: Campu s: M Performed By: #### L 200.51377 #### [facility] [address] [place] [address] MONO ABS 0.50 K/CU MM Normal 0.1-1.1 [facility] Comment on above: Order Comment: Campu s: M Performed By: #### L 200.50975 #### [facility] [address] [place] [address] Monocytes/100 WBC (Bld) 6.0 % Normal 2-10 [facility] Comment on above: Order Comment: Campu s: M Performed By: #### L 200.00167 #### [facility] [address] [place] [address] NEUTROPHIL ABS 7.00 K/CU MM Normal 2.0-8.3 [facility] Comment on above: Order Comment: Campu s: M Performed By: #### L 200.71876 #### [facility] [address] [place] [address] Neutrophils/100 WBC (Bld) 78.7 % High 45-75 [facility] Comment on above: Order Comment: Campu s: M Performed By: #### L 200.83203 #### [facility] [address] [place] [address] Nucleated RBC/100 WBC (Bld) [Ratio] 0.0 % Normal Less than 1 [facility] Comment on above: Order Comment: Campu s: M Performed By: #### L 200.34891 #### [facility] [address] [place] [address] Platelet mean volume (Bld) [Entitic vol] 9.8 fL Normal 9.4-12.4 [facility] Comment on above: Order Comment: Campu s: M Performed By: #### L 200.86482 #### [facility] [address] [place] [address] PLT 199 K/CU MM Normal 150-450 [facility] Comment on above: Order Comment: Campu s: M Performed By: #### L 200.64125 #### [facility] [address] [place] [address] RBC 4.61 M/CU MM Normal 4.50-6.00 [facility] Comment on above: Order Comment: Campu s: M Performed By: #### L 200.56483 #### [facility] [address] [place], [place] [id number] WBC 8.9 K/CUMM Normal 4.5-11.0 [facility] Comment on above: Order Comment: Campu s: M Performed By: #### L 200.11814 #### [facility] [address] [place] [address] EKGon 05-04-2021 Electrocardiogram Procedure Date and T [...] No significant change was found Confirmed by Frankie GRIGSBYSAMARITAN HEALTHCAREDenis Slade ([id number]) on 05/04/2021 10:25:42 PM Referred By: Parish Henry Confirmed By:Denis GRIGSBY M.D.FACC Frankie DDandT: 05/04/21 1534 TDandT: [facility] PATIENT NAME: LIBRADO GUILLEN [facility] [address] [place] MEDICAL REC #: [id number] [place] [address] ADMIT DATE: DISCHARGE DATE: ATTENDING PHY: Yohana Franz,Emergency Physi ELECTROCARDIOGRAM REPORT CLB cc: [facility] PATIENT NAME: LIBRADO GUILLEN [facility] [address] [place] MEDICAL REC #: [id number] [place] [id number] ADMIT DATE: DISCHARGE DATE: ATTENDING PHY: Yohana Franz,Emergency Physi ELECTROCARDIOGRAM REPORT Normal [facility] Electrocardiogram Procedure Date and T [...] GRIGSBY M.D.FACC Frankie DDandT: 05/04/21 1241 TDandT: [facility] PATIENT NAME: LIBRADO GUILLEN [facility] [address] [place] MEDICAL REC #: [id number] [place] [address] ADMIT DATE: DISCHARGE DATE: ATTENDING PHY: Yohana Franz,Emergency Physi ELECTROCARDIOGRAM REPORT CLB cc: [facility] PATIENT NAME: LIBRADO GUILLEN [facility] Dr[address] [facility] MEDICAL REC #: [id number] [place] [address] ADMIT DATE: DISCHARGE DATE: ATTENDING PHY: Yohana Franz,Emergency Physi ELECTROCARDIOGRAM REPORT Normal [facility] Susan 05-04-2021 EMERGENCY PHYSICIAN REPORT This is a preliminary report only, as the practitioner review and authentication has not occurred. Normal [facility] ER PHYSICIAN ASSESSMENT RECORDS : FlexChartData Event Time: 05/04/2021 13:15 Status: Signed [facility] Librado Guillen [[id number]] Attending Physician 75 / / 1945 Chart (V2b) Chart created at 05/04/2021 13:08 by Parish Henry Chart closed at 05/04/2021 16:28 Entry in Emergency Department at 05/04/2021 12:24, departure at 05/04/2021 16:54 Patient Name: Librado Guillen Record Number: [id number] Date: 05/04/2021 13:08 Entered Department at: 05/04/2021 [...] has been seen by his doctors [facility]. He is on PPI. He states that the only thing he knows that really gives him some relief is Pepto-Bismol. This is a symptoms that he has very regularly. Today he was going for outpatient lab at the [facility] and when he got there he started get dizzy and [facility] PAT[facility]: [facility] REC #: [id number] [place] [address] EMERGENCY DEPARTMENT REPORT EMERGENCY DEPARTMENT PHYSICIAN lightheaded. He felt weak as if he might pass out. He was having this chest discomfort. They called EMS to bring him here to the emergency department. He was admitted at [place] several weeks ago for his chest pain. [...] information as of 05/04/2021, 12:33 pm 92.8 [facility] PATIENT NAME: LIBRADO GUILLEN Izabela Cortés MEDICAL REC #: [id number] [place] [address] EMERGENCY DEPARTMENT REPORT EMERGENCY DEPARTMENT PHYSICIAN / [...] he is his baseline. Is placed on compliance monitor. Has been in sinus rhythm. Cardiac testing here included EKG x2 which has been sinus rhythm without ischemic findings (more content not included)... Normal [facility] GFR ESTon 05-04-2021 IF AMER Greater than 60 Normal [facility] Comment on above: Order Comment: Darinu s: M Performed By: #### L 500.12328, L500.55044 #### [facility] [address] [place] [address] IF non-AFR AMER Greater than 60 Normal [facility] Comment on above: Order Comment: Campu s: M Performed By: #### L 500.66447, L500.84314 #### [facility] [address] [place] [address] TROPONIN Ion 05-04-2021 Troponin I.cardiac [Mass/Vol] 2.5 ng/mL Normal 0-54 [facility] Comment on above: Order Comment: Darinu s: M Result Comment: NOTE NEW NORMAL RANGE DUE TO REAGENT CHANGE This assay uses different antibodies than our current assay, and assays, even by the same yeast fermentation attendant may recognize different regions of the antibody and cannot be used interchangeably. Expect results of this assay to run higher than the previous assay. Performed By: #### L 550.99724 #### [facility] [address] [place] [address] Troponin I.cardiac [Mass/Vol] 2.5 ng/mL Normal 0-54 [facility] Comment on above: Order Comment: Campu s: M Result Comment: NOTE NEW NORMAL RANGE DUE TO REAGENT CHANGE This assay uses different antibodies than our current assay, and assays, even by the same yeast fermentation attendant may recognize different regions of the antibody and cannot be used interchangeably. Expect results of this assay to run higher than the previous assay. Performed By: #### L 550.08300 #### [facility] [address] [place] [address] MRI SPINE LUMBAR W/O CONTRAS Ton 01-04-2020 [...] Sign Date: 01/04/2020 4:42:29 PM Ordering Provider:Philippe [facility] ([place]) Rona 12-29-2019 [facility] MICRO - Microbiology [...] Locations *1: This test was performed at: [facility], [address] [place] [address], [id number] [place] [address] ([place]) Comment on above: Performed By: #### C GIOVANA RIZVI, ANEU #### [place] [address] #### TROP, LIP, CMP, GFR #### [address] [address] .Auto Diffon 12-26-2019 Ammonia (P) [Mass/Vol] 0.60 10 3/mcL Normal 0.15-1.00 [facility] ([place]) Comment on above: Performed By: #### C DMITRI, ABDIFATAHIFF, ANEU #### [place] [address] #### TROP, LIP, CMP, GFR, LAC #### [address] [address] Basophils (Bld) [#/Vol] 0.10 10 3/mcL Normal 0.00-0.19 [facility] ([place]) Comment on above: Performed By: #### C GIOVANA RIZVI, ANEU #### [place] [address] #### TROP, LIP, CMP, GFR, LAC #### [address] [address] Basophils/100 WBC (Bld) 1.3 % Normal 0.0-2.5 [facility] ([place]) Comment on above: Performed By: #### C DMITRI, GIOVANA, ANEU #### [place] [address] #### TROP, LIP, CMP, GFR, LAC #### [address] [address] Eosinophils (Bld) [#/Vol] 0.40 10 3/mcL Normal 0.00-0.40 [facility] ([place]) Comment on above: Performed By: #### C DMITRI, GIOVANA, ANEU #### [place] [address] #### TROP, LIP, CMP, GFR, LAC #### [address] [address] Eosinophils/100 WBC (Bld) 5.3 % Normal 0.0-7.0 [facility] ([place]) Comment on above: Performed By: #### C BC, ADIFF, ANEU #### [place] [address] #### TROP, LIP, CMP, GFR, LAC #### [address] [address] Lymphocytes (Bld) [#/Vol] 1.90 10 3/mcL Normal 0.77-3.85 [facility] ([place]) Comment on above: Performed By: #### C BC, ADIFF, ANEU #### [place] [address] #### TROP, LIP, CMP, GFR, LAC #### [address] [address] Lymphocytes/100 WBC (Bld) 26.5 % Normal 10.0-50.0 [facility] ([place]) Comment on above: Performed By: #### C BC, ADIFF, ANEU #### [place] [address] #### TROP, LIP, CMP, GFR, LAC #### [address] [address] Monocytes/100 WBC (Bld) 8.4 % Normal 1.7-13.0 [facility] ([place]) Comment on above: Performed By: #### C BC, ADIFF, ANEU #### [place] [address] #### TROP, LIP, CMP, GFR, LAC #### [address] [address] Neutrophils/100 WBC (Bld) 58.5 % Normal 37.0-80.0 [facility] ([place]) Comment on above: Performed By: #### C BC, ADIFF, ANEU #### [place] [address] #### TROP, LIP, CMP, GFR, LAC #### [address] [address] .GFRon 12-26-2019 GFR Non- 60 ml/min/1.73sqm Normal [facility] ([place]) Comment on above: Result Comment: GFR Population [...] mL/min/1.73 square meters Performed By: #### C BCGIOVANA, ANEU #### [address] [address] #### TROP, LIP, CMP, GFR #### [place] [address] GFR 72 ml/min/1.73sqm Normal [facility] ([place]) Comment on above: Result Comment: GFR Population [...] square meters Performed By: #### C BC, ADANDREW, ANEU #### [address] [address] #### TROP, LIP, CMP, GFR #### [place] [id number] .NEUABSon 12-26-2019 Neutrophils (Bld) [#/Vol] 4.20 10 3/mcL Normal 2.85-6.16 [facility] ([place]) Comment on above: Performed By: #### C BC, ADIFF, ANEU #### [place] [address] #### TROP, LIP, CMP, GFR, LAC #### [place] [address] .Urinalysis Microscopic (AO) on 12-26-2019 RBC (U) [#/Vol] None Seen Normal None Seen [facility] ([place]) Comment on above: Performed By: #### C BC, ADIFF, ANEU #### [place] [address] #### TROP, LIP, CMP, GFR #### [place] [address] UA Mucous 2+ /hpf Normal [facility] ([place]) Comment on above: Performed By: #### C BC, ADIFF, ANEU #### [place] [address] #### TROP, LIP, CMP, GFR #### [place] [address] UA Squam Epithelial None Seen Normal None Seen [facility] ([place]) Comment on above: Performed By: #### C BC, ADIFF, ANEU #### [place] [address] #### TROP, LIP, CMP, GFR #### [place] [address] UA WBC 0-5 Abnormal None Seen [facility] ([place]) Comment on above: Performed By: #### C BC, ADIFF, ANEU #### [place] [address] #### TROP, LIP, CMP, GFR #### [place] [address] CBCon 12-26-2019 Erythrocyte distribution width (RBC) [Ratio] 13.1 % Normal 11.5-14.5 [facility] ([place]) Comment on above: Performed By: #### C BC, ADIFF, ANEU #### [place] [address] #### TROP, LIP, CMP, GFR, LAC #### [place] [address] Hematocrit (Bld) [Volume fraction] 43.1 % Normal 42.0-52.0 [facility] ([place]) Comment on above: Performed By: #### C GIOVANA RIZVI, ANEU #### [place] [address] #### TROP, LIP, CMP, GFR, LAC #### [place] [address] Hemoglobin (Bld) [Mass/Vol] 14.8 G/dL Normal 14.0-18.0 [facility] ([place]) Comment on above: Performed By: #### C GIOVANA RIZVI, ANEU #### [place] [address] #### TROP, LIP, CMP, GFR, LAC #### [place] [address] MCH (RBC) [Entitic mass] 31.6 pg High 27.0-31.2 [facility] ([place]) Comment on above: Performed By: #### C GIOVANA RIZVI, ANEU #### [place] [address] #### TROP, LIP, CMP, GFR, LAC #### [place] [address] MCHC (RBC) [Mass/Vol] 34.5 G/dL Normal 31.8-35.4 [facility] ([place]) Comment on above: Performed By: #### C GIOVANA RIZVI, ANEU #### [place] [address] #### TROP, LIP, CMP, GFR, LAC #### [place] [id number] MCV (RBC) [Entitic vol] 91.7 fL Normal 80.0-94.0 [facility] ([place]) Comment on above: Performed By: #### C DMITRI, ADIFF, ANEU #### [place] [address] #### TROP, LIP, CMP, GFR, LAC #### [address] [address] Platelet mean volume (Bld) [Entitic vol] 8.5 fL Normal 7.4-10.4 [facility] ([place]) Comment on above: Performed By: #### C BC, ADIFF, ANEU #### [place] [address] #### TROP, LIP, CMP, GFR, LAC #### [address] [address] Platelets (Bld) [#/Vol] 180 10 3/mcL Normal 130-400 [facility] ([place]) Comment on above: Performed By: #### C DMITRI, ADIFF, ANEU #### [place] [address] #### TROP, LIP, CMP, GFR, LAC #### [place] [address] RBC (Bld) [#/Vol] 4.70 10 6/mcL Normal 4.04-6.13 [facility] ([place]) Comment on above: Performed By: #### C BC, ADIFF, ANEU #### [place] [address] #### TROP, LIP, CMP, GFR, LAC #### [place] [id number] WBC (Bld) [#/Vol] 7.20 10 3/mcL Normal 4.60-10.80 [facility] ([place]) Comment on above: Performed By: #### C BC, ADIFF, ANEU #### [place] [address] #### TROP, LIP, CMP, GFR, LAC #### [address] [address] CMPon 12-26-2019 Albumin [Mass/Vol] 4.2 G/dL Normal 3.4-4.8 [facility] ([place]) Comment on above: Performed By: #### C BC, ADIFF, ANEU #### [address] [address] #### TROP, LIP, CMP, GFR #### [address] [address] Albumin/Globulin [Mass ratio] 1.4 {ratio} Normal 1.1-2.5 [facility] ([place]) Comment on above: Performed By: #### C BC, ADIFF, ANEU #### [place] [address] #### TROP, LIP, CMP, GFR #### [address] [address] ALP [Catalytic activity/Vol] 103 U/L Normal 40-135 [facility] ([place]) Comment on above: Performed By: #### C BC, ADIFF, ANEU #### [place] [address] #### TROP, LIP, CMP, GFR #### [address] [address] ALT [Catalytic activity/Vol] 70 U/L High 10-35 [facility] ([place]) Comment on above: Performed By: #### C BC, ADIFF, ANEU #### [address] [address] #### TROP, LIP, CMP, GFR #### [address] [address] AST [Catalytic activity/Vol] 38 U/L Normal 10-40 [facility] ([place]) Comment on above: Performed By: #### C BC, ADIFF, ANEU #### [place] [address] #### TROP, LIP, CMP, GFR #### [address] [address] Bili Total 0.7 mg/dL Normal 0.2-1.0 [facility] ([place]) Comment on above: Performed By: #### C BC, ADIFF, ANEU #### [address] [address] #### TROP, LIP, CMP, GFR #### [address] [address] Calcium [Mass/Vol] 9.1 mg/dL Normal 8.4-10.2 [facility] ([place]) Comment on above: Performed By: #### C BC, ADIFF, ANEU #### [address] [address] #### TROP, LIP, CMP, GFR #### [address] [address] Chloride [Moles/Vol] 106 mmol/L Normal 98-107 [facility] ([place]) Comment on above: Performed By: #### C BC, ADIFF, ANEU #### [address] [address] #### TROP, LIP, CMP, GFR #### [address] [address] CO2 [Moles/Vol] 26 mmol/L Normal 23-31 [facility] ([place]) Comment on above: Performed By: #### C BC, ADIFF, ANEU #### [address] [address] #### TROP, LIP, CMP, GFR #### [address] [address] Creatinine [Mass/Vol] 1.20 mg/dL Normal 0.70-1.30 [facility] ([place]) Comment on above: Performed By: #### C BC, ADIFF, ANEU #### [address] [address] #### TROP, LIP, CMP, GFR #### [address] [address] Electrolyte Balance 13.0 mEq/L Normal [facility] ([place]) Comment on above: Performed By: #### C BC, ADIFF, ANEU #### [address] [address] #### TROP, LIP, CMP, GFR #### [address] [address] Globulin (S) [Mass/Vol] 3.1 G/dL Normal [facility] ([place]) Comment on above: Performed By: #### C BC, ADIFF, ANEU #### [address] [address] #### TROP, LIP, CMP, GFR #### [address] [address] Glucose [Mass/Vol] 105 mg/dL Normal 83-110 [facility] ([place]) Comment on above: Performed By: #### C BC, ADIFF, ANEU #### [address] [address] #### TROP, LIP, CMP, GFR #### [address] [address] Potassium [Moles/Vol] 4.2 mmol/L Normal 3.5-5.1 [facility] ([place]) Comment on above: Performed By: #### C BC, ADIFF, ANEU #### [address] [address] #### TROP, LIP, CMP, GFR #### [address] [address] Protein [Mass/Vol] 7.3 G/dL Normal 6.4-8.2 [facility] ([place]) Comment on above: Performed By: #### C DMITRI, GIOVANA, ANEU #### [address] [address] #### TROP, LIP, CMP, GFR #### [address] [address] Sodium [Moles/Vol] 145 mmol/L Normal 136-145 [facility] ([place]) Comment on above: Performed By: #### C BC, ADIFF, ANEU #### [address] [address] #### TROP, LIP, CMP, GFR #### [address] [address] Urea nitrogen [Mass/Vol] 19 mg/dL High 7-18 [facility] ([place]) Comment on above: Performed By: #### C BC, ADIFF, ANEU #### [facility] [address] [place], [place] [address] #### TROP, LIP, CMP, GFR #### [facility] [address] [place] [address] Urea nitrogen/Creatinine [Mass ratio] 16 ratio Normal 7-27 [facility] ([place]) Comment on above: Performed By: #### C BC, ADIFF, ANEU #### [facility] [address] [place], [place] [address] #### TROP, LIP, CMP, GFR #### [facility] [address] [place] [address] ABD/PELVIS W/ IV CONTRAST ONLYon 12-26-2019 [...] Date: 12/26/2019 4:29:03 PM Ordering Provider:Paddy Wahl [facility] ([place]) LAC 12-26-2019 Lactic Acid Lvl 1.1 mmol/L Normal 0.4-2.0 [facility] ([place]) Comment on above: Performed By: #### C ABDIFATAH RIZVIIFF, ANEU #### [place] [address] #### TROP, LIP, CMP, GFR #### [place] [address] Lactic Acid Lvl 2.4 mmol/L High 0.4-2.0 [facility] ([place]) Comment on above: Performed By: #### C GIOVANA RIZVI, ANEU #### [place] [address] #### TROP, LIP, CMP, GFR #### [place] [address] LIP 12-26-2019 Lipase Level 81 U/L Normal 73-393 [facility] ([place]) Comment on above: Performed By: #### C BCABDIFATAHIFF, ANEU #### [place] [address] #### TROP, LIP, CMP, GFR #### [address] [address] TROPon 12-26-2019 Troponin I.cardiac [Mass/Vol] 0.027 ng/mL Normal 0.000-0.04 0 [facility] ([place]) Comment on above: Result Comment: Trop onin I reference range: 0.00-0.040 ng/mL Negative and non-diagnostic. >0.040 ng/mL Consistent with cardiac damage, increased clinical risk and possibility of myocardial infarction. Serial measurements, a rise & fall in test results, clinical history, appropriate symptoms and/or ECG changes may help assess possibility of MN. *Other non-acute coronary syndrome conditions such as CHF, myocarditis, pulmonary emboli, sepsis and cardiac surgery could result in myocardial damage and increased troponin levels. Performed By: #### C GIOVANA RIZVI ANEU #### [place] [address] #### TROP, LIP, CMP, GFR #### [place] [address] UAon 12-26-2019 Color (U) Dark yellow Normal [facility] ([place]) Comment on above: Performed By: #### C GIOVANA RIZVI ANEU #### [place] [address] #### TROP, LIP, CMP, GFR #### [place] [address] Glucose (U) [Mass/Vol] Negative Normal Negative [facility] ([place]) Comment on above: Performed By: #### C GIOVANA RIZVI ANEU #### [place] [address] #### TROP, LIP, CMP, GFR #### [place] [address] Ketones Ql (U) >=160 Abnormal Negative [facility] ([place]) Comment on above: Performed By: #### C GIOVANA RIZVI, ANEU #### [place] [address] #### TROP, LIP, CMP, GFR #### [place] [address] UA Appear Slightly Cloudy Abnormal Clear [facility] ([place]) Comment on above: Performed By: #### C BC, ADIFF, ANEU #### [address] [address] #### TROP, LIP, CMP, GFR #### [place] [address] UA Blood Trace Abnormal Negative [facility] ([place]) Comment on above: Performed By: #### C BC, ADIFF, ANEU #### [place] [address] #### TROP, LIP, CMP, GFR #### [place] [address] UA Leuk Est Negative Normal Negative [facility] ([place]) Comment on above: Performed By: #### C BC, ADIFF, ANEU #### [place] [address] #### TROP, LIP, CMP, GFR #### [place] [address] UA Nitrite Negative Normal Negative [facility] ([place]) Comment on above: Performed By: #### C BC, ADIFF, ANEU #### [place] [address] #### TROP, LIP, CMP, GFR #### [place] [address] UA pH 7.5 Normal 5.0 - 8.0 [facility] ([place]) Comment on above: Performed By: #### C BC, ADIFF, ANEU #### [place] [address] #### TROP, LIP, CMP, GFR #### [place] [address] UA Protein Negative Normal Negative [facility] ([place]) Comment on above: Performed By: #### C BC, ADIFF, ANEU #### [place] [address] #### TROP, LIP, CMP, GFR #### [place] [address] UA Spec Grav 1.015 Normal 1.015-1.02 5 [facility] ([place]) Comment on above: Performed By: #### C BC, ADIFF, ANEU #### [address] [address] #### TROP, LIP, CMP, GFR #### [place] [address] UA Specimen Type Clean Catch Normal [facility] ([place]) Comment on above: Performed By: #### C BC, ADIFF, ANEU #### [place] [address] #### TROP, LIP, CMP, GFR #### [place] [address] UA Urobilinogen 0.2 E.U./dL Normal 0.2-1.0 [facility] ([place]) Comment on above: Performed By: #### C BC, ADIFF, ANEU #### [place] [address] #### TROP, LIP, CMP, GFR #### [place] [address] Urobilinogen Qn (U) Small Abnormal Negative [facility] ([place]) Comment on above: Performed By: #### C BC, ADIFF, ANEU #### [place] [address] #### TROP, LIP, CMP, GFR #### [place] [address] XR CHEST 1 VIEWon 12-26-2019 XR CHEST [...] Date: 12/26/2019 3:12:24 PM Ordering Provider:Paddy Wahl [facility] ([place]) .Auto Diffon 12-16-2019 Ammonia (P) [Mass/Vol] 0.90 10 3/mcL Normal 0.15-1.00 [facility] ([place]) Comment on above: Performed By: #### C BC, ADIFF, ANEU #### [place] [address] #### TROP, LIP, CMP, GFR #### [address] [address] Basophils (Bld) [#/Vol] 0.20 10 3/mcL High 0.00-0.19 [facility] ([place]) Comment on above: Performed By: #### C BC, ADIFF, ANEU #### [place] [address] #### TROP, LIP, CMP, GFR #### [address] [address] Basophils/100 WBC (Bld) 2.1 % Normal 0.0-2.5 [facility] ([place]) Comment on above: Performed By: #### C BC, ADIFF, ANEU #### [place] [address] #### TROP, LIP, CMP, GFR #### [address] [address] Eosinophils (Bld) [#/Vol] 0.30 10 3/mcL Normal 0.00-0.40 [facility] ([place]) Comment on above: Performed By: #### C BC, ADIFF, ANEU #### [place] [address] #### TROP, LIP, CMP, GFR #### [address] [address] Eosinophils/100 WBC (Bld) 3.0 % Normal 0.0-7.0 [facility] ([place]) Comment on above: Performed By: #### C BC, ADIFF, ANEU #### [place] [address] #### TROP, LIP, CMP, GFR #### [address] [address] Lymphocytes (Bld) [#/Vol] 2.20 10 3/mcL Normal 0.77-3.85 [facility] ([place]) Comment on above: Performed By: #### C BC, ADIFF, ANEU #### [place] [address] #### TROP, LIP, CMP, GFR #### [address] [address] Lymphocytes/100 WBC (Bld) 21.5 % Normal 10.0-50.0 [facility] ([place]) Comment on above: Performed By: #### C BC, ADIFF, ANEU #### [place] [address] #### TROP, LIP, CMP, GFR #### [address] [address] Monocytes/100 WBC (Bld) 8.4 % Normal 1.7-13.0 [facility] ([place]) Comment on above: Performed By: #### C BC, ADIFF, ANEU #### [place] [address] #### TROP, LIP, CMP, GFR #### [address] [address] Neutrophils/100 WBC (Bld) 65.0 % Normal 37.0-80.0 [facility] ([place]) Comment on above: Performed By: #### C BC, ADIFF, ANEU #### [place] [address] #### TROP, LIP, CMP, GFR #### [address] [address] .GFRon 12-16-2019 GFR 78 ml/min/1.73sqm Normal [facility] ([place]) Comment on above: Result Comment: GFR Population [...] By: #### C BC, ADIFF, ANEU #### [address] [address] #### TROP, LIP, CMP, GFR #### [address] [address] GFR Non- 64 ml/min/1.73sqm Normal [facility] ([place]) Comment on above: Result Comment: GFR Population [...] By: #### C BC, ADIFF, ANEU #### [address] [address] #### TROP, LIP, CMP, GFR #### [address] [address] .NEUABSon 12-16-2019 Neutrophils (Bld) [#/Vol] 6.60 10 3/mcL High 2.85-6.16 [facility] ([place]) Comment on above: Performed By: #### C BC, GIOVANA, ANEU #### [address] [address] #### TROP, LIP, CMP, GFR #### [address] [address] CBCon 12-16-2019 Erythrocyte distribution width (RBC) [Ratio] 13.6 % Normal 11.5-14.5 [facility] ([place]) Comment on above: Performed By: #### C BC, ADIFF, ANEU #### [place] [address] #### TROP, LIP, CMP, GFR #### [place] [address] Hematocrit (Bld) [Volume fraction] 42.7 % Normal 42.0-52.0 [facility] ([place]) Comment on above: Performed By: #### C BC, ADIFF, ANEU #### [place] [address] #### TROP, LIP, CMP, GFR #### [place] [address] Hemoglobin (Bld) [Mass/Vol] 14.3 G/dL Normal 14.0-18.0 [facility] ([place]) Comment on above: Performed By: #### C BC, ADIFF, ANEU #### [place] [address] #### TROP, LIP, CMP, GFR #### [place] [address] MCH (RBC) [Entitic mass] 31.1 pg Normal 27.0-31.2 [facility] ([place]) Comment on above: Performed By: #### C BC, ADIFF, ANEU #### [place] [address] #### TROP, LIP, CMP, GFR #### [place] [id number] MCHC (RBC) [Mass/Vol] 33.5 G/dL Normal 31.8-35.4 [facility] ([place]) Comment on above: Performed By: #### C BC, ADIFF, ANEU #### [place] [address] #### TROP, LIP, CMP, GFR #### [address] [address] MCV (RBC) [Entitic vol] 92.7 fL Normal 80.0-94.0 [facility] ([place]) Comment on above: Performed By: #### C BC, ADIFF, ANEU #### [place] [address] #### TROP, LIP, CMP, GFR #### [address] [address] Platelet mean volume (Bld) [Entitic vol] 9.5 fL Normal 7.4-10.4 [facility] ([place]) Comment on above: Performed By: #### C BC, ADIFF, ANEU #### [place] [address] #### TROP, LIP, CMP, GFR #### [address] [address] Platelets (Bld) [#/Vol] 263 10 3/mcL Normal 130-400 [facility] ([place]) Comment on above: Performed By: #### C BC, ADIFF, ANEU #### [place] [address] #### TROP, LIP, CMP, GFR #### [place] [id number] RBC (Bld) [#/Vol] 4.60 10 6/mcL Normal 4.04-6.13 [facility] ([place]) Comment on above: Performed By: #### C BC, ADIFF, ANEU #### [place] [address] #### TROP, LIP, CMP, GFR #### [address] [address] WBC (Bld) [#/Vol] 10.20 10 3/mcL Normal 4.60-10.80 [facility] ([place]) Comment on above: Performed By: #### C BC, ADIFF, ANEU #### [place] [address] #### TROP, LIP, CMP, GFR #### [address] [address] CMPon 12-16-2019 Albumin [Mass/Vol] 3.9 G/dL Normal 3.4-4.8 [facility] ([place]) Comment on above: Performed By: #### C BC, ADIFF, ANEU #### [place] [address] #### TROP, LIP, CMP, GFR #### [place] [address] Albumin/Globulin [Mass ratio] 1.3 {ratio} Normal 1.1-2.5 [facility] ([place]) Comment on above: Performed By: #### C BC, ADIFF, ANEU #### [place] [address] #### TROP, LIP, CMP, GFR #### [place] [address] ALP [Catalytic activity/Vol] 84 U/L Normal 40-135 [facility] ([place]) Comment on above: Performed By: #### C BC, ADIFF, ANEU #### [place] [address] #### TROP, LIP, CMP, GFR #### [place] [phone] ALT [Catalytic activity/Vol] 59 U/L High 10-35 [facility] ([place]) Comment on above: Performed By: #### C BC, ADIFF, ANEU #### [place] [address] #### TROP, LIP, CMP, GFR #### [place] [phone] AST [Catalytic activity/Vol] 25 U/L Normal 10-40 [facility] ([place]) Comment on above: Performed By: #### C BC, ADIFF, ANEU #### [place] [address] #### TROP, LIP, CMP, GFR #### [address] [address] Bili Total 0.4 mg/dL Normal 0.2-1.0 [facility] ([place]) Comment on above: Performed By: #### C BC, ADIFF, ANEU #### [address] [address] #### TROP, LIP, CMP, GFR #### [place] [address] Calcium [Mass/Vol] 9.1 mg/dL Normal 8.4-10.2 [facility] ([place]) Comment on above: Performed By: #### C BC, ADIFF, ANEU #### [place] [address] #### TROP, LIP, CMP, GFR #### [place] [address] Chloride [Moles/Vol] 106 mmol/L Normal 98-107 [facility] ([place]) Comment on above: Performed By: #### C BC, ADIFF, ANEU #### [address] [address] #### TROP, LIP, CMP, GFR #### [place] [address] CO2 [Moles/Vol] 31 mmol/L Normal 23-31 [facility] ([place]) Comment on above: Performed By: #### C BC, ADIFF, ANEU #### [place] [address] #### TROP, LIP, CMP, GFR #### [place] [address] Creatinine [Mass/Vol] 1.12 mg/dL Normal 0.70-1.30 [facility] ([place]) Comment on above: Performed By: #### C BC, ADIFF, ANEU #### [address] [address] #### TROP, LIP, CMP, GFR #### [place] [address] Electrolyte Balance 7.0 mEq/L Normal [facility] ([place]) Comment on above: Performed By: #### C BC, ADIFF, ANEU #### [address] [address] #### TROP, LIP, CMP, GFR #### [address] [address] Globulin (S) [Mass/Vol] 3.0 G/dL Normal [facility] ([place]) Comment on above: Performed By: #### C BC, ADIFF, ANEU #### [address] [address] #### TROP, LIP, CMP, GFR #### [address] [address] Glucose [Mass/Vol] 113 mg/dL High 83-110 [facility] ([place]) Comment on above: Performed By: #### C BC, ADIFF, ANEU #### [place] [address] #### TROP, LIP, CMP, GFR #### [address] [address] Potassium [Moles/Vol] 4.8 mmol/L Normal 3.5-5.1 [facility] ([place]) Comment on above: Performed By: #### C BC, ADIFF, ANEU #### [address] [address] #### TROP, LIP, CMP, GFR #### [address] [address] Protein [Mass/Vol] 6.9 G/dL Normal 6.4-8.2 [facility] ([place]) Comment on above: Performed By: #### C BC, ADIFF, ANEU #### [address] [address] #### TROP, LIP, CMP, GFR #### [address] [address] Sodium [Moles/Vol] 144 mmol/L Normal 136-145 [facility] ([place]) Comment on above: Performed By: #### C BC, ADIFF, ANEU #### [address] [address] #### TROP, LIP, CMP, GFR #### [address] [address] Urea nitrogen [Mass/Vol] 16 mg/dL Normal 7-18 [facility] ([place]) Comment on above: Performed By: #### C BC, ADIFF, ANEU #### [address] [address] #### TROP, LIP, CMP, GFR #### [address] [address] Urea nitrogen/Creatinine [Mass ratio] 14 ratio Normal 7-27 [facility] ([place]) Comment on above: Performed By: #### C BC, ADIFF, ANEU #### [address] [address] #### TROP, LIP, CMP, GFR #### [place] [id number] LIPon 12-16-2019 Lipase Level 76 U/L Normal 73-393 [facility] ([place]) Comment on above: Performed By: #### C BC, ADIFF, ANEU #### [address] [address] #### TROP, LIP, CMP, GFR #### [address] [address] TROPon 12-16-2019 Troponin I.cardiac [Mass/Vol] ng/mL Normal 0.000-0.04 0 [facility] ([place]) Comment on above: Result Comment: Trop onin I reference range: 0.00-0.040 ng/mL Negative and non-diagnostic. >0.040 ng/mL Consistent with cardiac damage, increased clinical risk and possibility of myocardial infarction. Serial measurements, a rise & fall in test results, clinical history, appropriate symptoms and/or ECG changes may help assess possibility of MN. *Other non-acute coronary syndrome conditions such as CHF, myocarditis, pulmonary emboli, sepsis and cardiac surgery could result in myocardial damage and increased troponin levels. Performed By: #### C BC, ADIFF, ANEU #### [place] [address] [place], [place] [address] #### TROP, LIP, CMP, GFR #### [facility] [address] [place] [address] CNOVon 11-05-2018 CNOV Office Visit (AGHWG1) ----LIBRADO GUILLEN ([id number]) 1945 MDate Time Provider Zbkkqknbff20/12/18 9:45 AM TONIO TERAN JR AGHWG1 During [...] information in this document, created bythe medical housekeeper for me, accurately reflects the services I personallyperformed and the decisions made by me. I have reviewed and approved thisdocument for accuracy.Rolando Akbar note: This note has been produced using speech recognition software andmay contain errors related to that system including grammar, punctuation,spelling, gender and words and phrases that may be inappropriate.Referring Provider: TONIO TERAN JR [[id number]]Allergies As of Date: 11/05/2018(No Known Allergies)Date Reviewed: [...] to improve.Follow-up and Disposition History RecordedEncounter Number: [id number] Status:Closed by TONIO TERAN MD on 11/13/18 [facility] PROGRESSon 11-05-2018 Protein mass conc HNO ID: [id number] thor: Tonio Teran Jr.Service: (none)Author Type: PhysicianType: [...] for, and in the presence ofLetty Akbarribe: aJmes Mittal C linician Attestation Statement: The information in this document, createdby the medical housekeeper for me, accurately reflects the services Ipersonally performed and the decisions made by me. I have reviewed andapproved this document for accuracy.Rolando Akbar note: This note has been produced using speech recognition softwareand may contain errors related to that system including grammar,punctuation, spelling, gender and words and phrases that may beinappropriate. Normal [facility] Protein mass conc HNO ID: [id number] thor: Wendi (Tech) Gerry Granger: (none)Author Type: [...] for excessive bleeding, clots, bleeding disorders. Normal [facility] ANES Asha 10-23-2018 ANES POST HNO ID: [id number] thor: Alexx Coevice: AnesthesiologyAuthor Type: PhysicianType: Anesthesia PostOpFiled: 10/23/2018 3:01 [...] 23, 2018 : 3:01 PM PAGER/CONTACT #: Maryuri [facility] LIDYA PREOPon 10-23-2018 ANES PREOP HNO ID: [id number] thor: Alexx OronaoService: AnesthesiologyAuthor Type: PhysicianType: Anesthesia PreOpFiled: 10/23/2018 1:35 PMNote Text: ANESTHESIOLOGY DAY OF SURGERY NOTESERVICE DATE: 10/23/2018SERVICE TIME: 1:34 PMDOB: 1945Procedure(s) (LRB):DECOMPRESSION NERVE MEDIAN CARPAL TUNNEL (Right)Surgeon(s):Tonio Reyes (Res) MakowskiEstimated body mass index is 36.73 kg/m? as calculated from the following: Height as of this encounter: 177.8 cm (5' 10). Weight as of this encounter: 116.1 kg (256 lb).Most recent hematocrit and potassium results:Hematocrit 38.8 07/19/2016Potassium 4.2 07/19/2016ANES DOS/PREOP NOTE:Vitals: 332BP: 176/88Pulse: 88Resp: 16Temp: 36.2 ?C (97.2 [...] 1973 gallbladder removed- PAST SURGICAL HISTORY OF 1975 right rib removed- PAST SURGICAL HISTORY OF [...] OralASA Class: 3Other Medical Problems: NoneChronic Beta Ambrosio medication administered within 24 hours: N/AI have [...] October 23, 2018 : 1:34 PM CSN: [id number] Normal [facility] HISTORY PHYSICALon HISTORY PHYSICAL HNO ID: [id number] thor: Cruz (Pa) SedlackoService: (none)Author Type: Physician AssistantType: HANDPFiled: 10/23/2018 1:48 PMNote Text:HISTORY AND PHYSICAL EXAMINATIONLibrado Guillen1945SERVICE DATE: 10/23/2018SERVICE TIME: 1:13 PMPRIMARY CARE PHYSICIAN: SONYA NairURGEON: Surgeon(s) and Role: * Tonio Teran Jr. - Primary * Ar (Juan Carlos Funes - Resident - AssistingANESTHESIA: Monitored Anesthesia CareDIAGNOSIS: [...] radial pulses; noweakness on hand grasp tulio} 2BP: 176/88Pulse: 88Resp: 16Temp: 36.2 ?C (97.2 ?F)SpO2: 97%Weight: 116.1 kg (256 lb)Height: 177.8 cm (5' 10)Body mass index is 36.73 kg/m?.SIGNATURE: Nancy Scales PA-C PATIENT NAME: Librado GuillenDATE: October 23, 2018 : 1:13 PM PAGER/CONTACT #: [facility] PT EDon 10-23-2018 PT ED HNO ID: [id number] thor: Jaja (Rn) CRUZ Clintonervice: (none)Author Type: Registered NurseType: Patient EducationFiled: 10/23/2018 1:35 PMNote Text:ONGOING PATIENT EDUCATION TOPIC Reinforced: pain scalePatient Name: Librado GuillenMRN: [id number] [facility] To LearnMotivation To Learn: EagerInstruction Provided To: PatientLearning ResponsePatient/Family Response: Verbalizes understanding of: PAINMANAGEMENT-Effective strategies to manage pain in addition to painmedicationMethod of Instruction: Individual instructionFollow-Up Plan: Complete - No need for follow-upElectronically signed by: Jaja Clinton RN [facility] HOSPon 08-29-2018 HOSP Patient:Humza Guillen DMRN: [...] last 30 days for the following basenames: K,HCTNo progress notes entered within the past 30 days [facility] CNOVon 08-15-2018 CNOV Office Visit (AGHWG1) ----LIBRADO GUILLEN ([id number]) 1945 MDate Time Provider Department08/15/18 9:45 AM TONIO TERAN JR AGHWG1 During your visit today, we recorded the following information about you: Respiration Weight Height 16/minute 116.1 kg 1.778 Moy Hayden 08/15/2018 10:08 AM SignedREVIEW OF SYSTEMS:GENERAL: Well [...] for surgery.Follow-up and Disposition History RecordedEncounter Number: [id number] Status:Closed by TONIO TERAN MD on 08/15/18 [facility] OBSOLETEon 08-15-2018 OBSOLETE Procedure (AGSPHWG) -----LIBRAD[facility] GUILLEN ([id number]) 1945 [facility] Time Provider Department08/15/18 9:00 AM BRIDGET NARANJO [...] Further, nerves are often tested in a cpoi-ii-jswtlarpcwjnwq, as well as, additional extremities and are [...] name, , allergies and procedurebeing performed at [facility] is aware of potential risks and [...] MOTOR AND/SENS 5-6 NRV CNDJ PRECONF ELTRODE Johana Nolan MA 08/15/2018 9:05 AM SignedReview of SystemsEyes: Negative for blurred vision.Respiratory: Positive for shortness of breath.?Cardiovascular: Negative for chest pain. Negative for leg swelling.Gastrointestinal: Negative for constipation, diarrhea, nausea?and vomiting.Genitourinary: Negative for dysuria.Skin: Negative for itching.Neurological: Negative for headaches. Negative for dizziness, tingling?andweakness.Endo/He me/Allergies: Positive for bruising/bleeding easily.Psychiatric/Behaviora l: Negative for depression?and suicidal ideas.ROS entered by: Rashida Burrows Provider: TONIO TERAN JR [[id number]]Allergies As of Date: 08/15/2018(No Known Allergies)Date Reviewed: 08/15/2018Reviewed by: Bridget Naranjo - Fully AssessedReason for Visit: EMG [2011] Cmt: right upperPrimary Visit Diagnosis:Right upper limb pain [M79.601]Order(s):NEEDLE EMG EA EXTREMTY W/PARASPINL AREA COMPLETE [54980SCA] Order #: [id number] MOTOR AND/SENS 5-6 NRV CNDJ PRECONF ELTRODE LIMB [[id number]] Order #: [id number] as of 08/15/2018 Sig: GABAPENTIN 300 MG [...] Further, nerves are often tested in a pdmr-hp-hjyn comparison, as well as, additional extremities and are crucial in isolating the area of the spine and/or distal nerve that has been damaged so that the diagnosis and treatment of the patient can be achieved. Therefore, the muscles and nerves examined were medically necessary.Visit Notes:>> Navi Prince SatAug 15, 2018 9:04 AM Status: SignedReview of SystemsEyes: Negative for blurred vision.Respiratory: Positive for shortness of breath.?Cardiovascular: Negative for chest pain. Negative for leg swelling.Gastrointestinal: Negative for constipation, diarrhea, nausea?andvomiting.Genitouri nary: Negative for dysuria.Skin: Negative for itching.Neurological: Negative for headaches. Negative for dizziness, tingling?andweakness.Endo/He me/Allergies: Positive for bruising/bleeding easily.Psychiatric/Behaviora l: Negative for depression?and suicidal ideas.ROS entered by: Kaiser Burrowsposition: Return if symptoms worsen or fail to improve.Follow-up and Disposition History RecordedEncounter Number: [id number] Status:Closed by BRIDGET NARANJO MD on 08/15/18 [facility] PROCEDUREon 08-15-2018 Protein mass conc HNO ID: [id number] thor: Bridget Nicolas: (none)Author Type: PhysicianType: ProceduresFiled: [...] name, , allergies and procedurebeing performed at [facility] is aware of potential risks and [...] PRECONF ELTRODE LIMBBridget Naranjo MD [facility] PROGRESSon 08-15-2018 Protein mass conc HNO ID: [id number] thor: Tonio Teran Jr.Service: (none)Author Type: PhysicianType: [...] words and phrases that may beinappropriate. Normal [facility] Protein mass conc HNO ID: [id number] thor: Kali (Tech) Rip: (none)Author Type: TechnicianType: [...] for excessive bleeding, clots, bleeding disorders. Normal [facility] CNOVon 07-08-2018 CNOV Office Visit (AGPOB3) ----LIBRADO GUILLEN ([id number]) 1945 MDate Time Provider Department07/08/18 8:00 AM [facility] During your visit today, we recorded the following information about you: Respiration Weight Height 16/minute 117 kg 1.778 Lary Tang Giftah 07/08/2018 8:21 AM SignedREVIEW OF SYSTEMS:GENERAL: Well developed, well nourished. No acute distressPAIN: Pain right forearmCARDIOVASCULAR: Negative for chest pain, leg swelling and palpations.MSK: Negative for joint pain, swelling, back pain, muscle pain.SKIN: Negative for lesions, rash, itching, metal sensitivityNEURO: Trauma 8-26-42DNARLPRTI: Negative for Diabetes Type 1 and Type [...] TO PAIN MGT ANESTHESIA [20000301] Order #: [id number]: 1 meloxicam (MOBIC) 15 mg tabletTake 1 [...] >> Clover MOREL 07/08/2018 7:59 AM >> GILLIAN MOREL CLOVER Sudha Jul 08, 2018 7:59 AM No longer [...] nerve test.Follow-up and Disposition History RecordedEncounter Number: [id number] Status:Closed by TONIO TERAN MD on 07/08/18 [facility] PROGRESSon 07-08-2018 Protein mass conc HNO ID: [id number] thor: Tonio Teran Jr.Service: (none)Author Type: PhysicianType: [...] words and phrases that may beinappropriate. Normal [facility] Protein mass conc HNO ID: [id number] thor: Clover Tang TECHService: (none)Author Type: (none)Type: Progress NotesFiled: 07/08/2018 8:21 AMNote Text:REVIEW OF SYSTEMS:GENERAL: Well developed, well nourished. No acute distressPAIN: Pain right forearmCARDIOVASCULAR: Negative for chest pain, leg swelling and palpations.MSK: Negative for joint pain, swelling, back pain, muscle pain.SKIN: Negative for lesions, rash, itching, metal sensitivityNEURO: Trauma 8-55-49MBMDOTCKJ: Negative for Diabetes Type 1 and Type 2HEMATOLOGY: Negative for excessive bleeding, clots, bleeding disorders. Normal [facility] CNOVon 06-10-2018 CNOV Office Visit (AGPOB3) ----LIBRADO GUILLEN ([id number]) 1945 [facility] Time Provider Department06/10/18 1:15 PM TONIO TERAN JR AGPOB3 During your visit today, we recorded the following information about you: Respiration Weight Height 18/minute 116.1 kg 1.778 mWilliam MD Robin 06/10/2018 2:11 PM SignedPatient presents with:Surgical Followup: [...] and phrases that may be inappropriate.Referring Provider: TOINO TERAN JR [[id number]]Allergies As of Date: 06/10/2018(No Known Allergies)Date Reviewed: [...] to improve.Follow-up and Disposition History RecordedEncounter Number: [id number] Status:Closed by TONIO TERAN MD on 06/10/18 [facility] PROGRESSon 06-10-2018 Protein mass conc HNO ID: [id number] thor: Tonio Teran Jr.Service: (none)Author Type: PhysicianType: Progress NotesFiled: 06/10/2018 2:11 PMNote Text:Patient presents with:Surgical Followup: R Forearm DOS 05/23/2018PROCEDUREIrrigation and debridement right forearm woundHISTORY OF PRESENT ILLNESSJonaskati Guillen presents for post operative follow up [...] and words and phrases that may beinappropriate. [facility] OPERATIVE NOon 05-30-2018 OPERATIVE NO HNO ID: [id number] thor: Tonio Teran Jr.Service: Hand SurgeryAuthor Type: PhysicianType: Operative ReportFiled: 05/30/2018 10:47 AMNote Text:[facility] - Operative ReportSURGEON: JAVIER DouglasATIENT NAME: LIBRADO GUILLEN DMRN: [id number] CSN: [id number] OF SURGERY: 05/23/2018DATE OF : 1945 SEX/AGE: M/72PATIENT TYPE: A HOSP SVC: OROR LOCATION: [id number] OF SURGERY: 05/23/2018SURGEON: JAVIER DouglasREOPERATIVE DIAGNOSIS: Forearm laceration involving tendon, right.POSTOPERATIVE DIAGNOSIS: Forearm laceration.PROCEDURE PERFORMED: Exploration of penetrating wound, right forearm.CYTOTECHNOLOGIST/HISTOTECHNOLOGIST: Dominguez Brown MD, PGY-3.ANESTHESIA: MAC local.ESTIMATED BLOOD [...] MDOrthopedic SurgeryWDL:modlD: 05/30/2018 08:04:49T: 05/30/2018 08:20:15Job #: [id number] [facility] CNCOon 05-26-2018 CNCO Letter Text Tonio Teran MD [address] [place] [address] [address], [facility] [id number] [facility] [id number] [facility], [address], [facility] [id number], [facility] [address] [facility], [facility] [id number] ([id number]) [facility].org.05/26/2018Librado Smith Mshbkr9609/17/1945To whom it may concern:This is to certify that Librado Guillen is under my care and underwent righthand surgery on 05/23/18. Please excuse his daughter, Coby Luc, fromwork as she is assisting him in his recovery.Please feel free to contact my office if you have any questions or concerns.Thank you for your assistance in this matter.Tonio Teran MD(Electronically signed to expedite care) [facility] ANES Asha 05-23-2018 ANES POST HNO ID: [id number] thor: Nick Quispeervice: AnesthesiologyAuthor Type: PhysicianType: Anesthesia PostOpFiled: 05/23/2018 10:01 [...] Remarks:SIGNATURE: Nick Vizcarra MD PATIENT NAME: Librado GuillenDATE: May 23, 2018 : 10:01 PM PAGER/CONTACT #: [phone] [facility] ANES PREOPon 05-23-2018 ANES PREOP HNO ID: [id number] thor: Nick Quispeervice: AnesthesiologyAuthor Type: PhysicianType: Anesthesia [...] status.Further assessment by Anesthesia Service: NoneOther Remarks:SIGNATURE: Ncik Vizcarra MD PATIENT NAME: Librado GuillenDATE: May 23, 2018 : 9:58 PM PAGER/CONTACT #: [phone] [facility] ANES PREOP HNO ID: [id number] thor: Nick Quispeervice: AnesthesiologyAuthor Type: PhysicianType: Anesthesia [...] OralASA Class: 3Other Medical Problems: NoneChronic Beta Ambrosio medication administered within 24 hours: N/AI have [...] May 23, 2018 : 4:17 PM CSN: [id number] [facility] BRIEF OP NOTon 05-23-2018 BRIEF OP NOT HNO ID: [id number] thor: Tonio Teran Jr.Service: Orthopaedic SurgeryAuthor Type: PhysicianType: Brief Op NoteFiled: 05/30/2018 8:01 AMNote Text:ORTHO BRIEF OPERATIVE REPORTPATIENT NAME: Librado GuillenMRN: [id number] ID: [id number]/Procedure Date: 05/23/2018Incision/Procedure Start Time: 6:52 PMIncision Close/Procedure End Time:Surgeon(s)/Proceduralis t(s) and Machine Burrer(s):Surgeon(s) and Role: * Tonio Teran Jr. - [...] Continue PO antibiotics- Discharge planning: Home/Self CareSIGNATURE: Dominguez Brown MDDATE: 05/23/18 : 7:19 PM PAGER/CONTACT #: [phone] [facility] NURSING PROGon 05-23-2018 Protein mass conc HNO ID: [id number] thor: Daniela (Rn) Rebekah RNService: (none)Author Type: Registered NurseType: Nursing Progress NoteFiled: 05/23/2018 8:45 PMNote Text:Paged Dr. Brown multiple times to sign prescription for Tramadol. Noresponse. Pt tired of waiting and decided he didn't want prescription.Prescription ripped up and discarded. [facility] HISTORY PHYSICALon 8 HISTORY PHYSICAL HNO ID: [id number] thor: Gabriela Salgado (Squad Sergeant) MeltonService: (none)Author Type: Nurse PractitionerType: HANDPFiled: 05/22/2018 11:17 AMNote Text: HISTORY AND PHYSICAL EXAMINATIONSERVICE DATE: 05/22/2018SERVICE TIME: 10:32 AMPRICLEBUR[facility] PHYSICIAN: Shannan Guillen MDThe patient has [...] instructions and voicescomprehension and compliance.SIGNATURE: Gabriela Perez APRN.TRIPE FINISHER PATIENT NAME: Librado Smith MindyDATE: May 22, 2018 : 10:32 AM PAGER/CONTACT #: Maryuri [facility] CNOVon 05-21-2018 CNOV Office Visit (AGHWG1) ----MINDYJONASLIBRADO D ([id number]) 1945 MDate Time Provider Department05/21/18 11:15 AM [...] blocking splint told to follow up with melody for definitive management. He denies any numbness [...] involvement, initial encounter [S51.811A, S56.921A]Order(s):APPLY FOREARM SPLINT,STATIC [[id number]] Order #: [id number] as of 05/21/2018 Sig: ALBUTEROL SULFATE 2.5 [...] for surgery.Follow-up and Disposition History RecordedEncounter Number: [id number] Status:Closed by TONIO TERAN MD on 05/21/18 [facility] HOSPon 05-21-2018 HOSP Patient:Humza Guillen DMRN: [...] for the following basenames: K,HCTProgress Notes ([facility]):Abraham German Tech 05/21/2018 1:21 PM SignedREVIEW OF SYSTEMS:GENERAL: [...] Teran MD 05/21/2018 1:21 PM Signed05/21/2018Name:Librado Smith LyndenDate of :1945History of Chief Complaint: Librado is [...] of the forearms. [facility] His wounds were [...] and phrases that may be inappropriate. Normal [facility] PROGRESSon 05-21-2018 Protein mass conc HNO ID: [id number] thor: Tonio Teran Jr.Service: (none)Author Type: PhysicianType: Progress NotesFiled: 05/21/2018 1:21 PMNote Text:05/21/2018Name:Librado Smith LyndenDate of :1945History of Chief Complaint: Librado is seeing me as a new patient today. Hecomplains of lacerations to both forearms. He was attacked by hisnealtonbor's pit bull several days ago. He sustained [...] distal wound is [facility] obvious tendon involvement. He [...] words and phrases that may beinappropriate. Normal [facility] Protein mass conc HNO ID: [id number] thor: Abraham (Tech) PostService: (none)Author Type: TechnicianType: [...] for excessive bleeding, clots, bleeding disorders. Normal [facility] Culture, urine Bacteria identified Cx Nom (U) Culture exhibits no growth. [facility] Work Phone: Vital Signs Date Time Vital Sign Value Performing Clinician Facility 06-10-2025 08:39-0400 Body temperature 97.4 [degF] Jaycob Yang MD Work Phone: [facility] 06-10-2025 08:39-0400 Diastolic blood pressure 59 mm[Hg] Jaycob Yang MD Work Phone: [facility] 06-10-2025 08:39-0400 Heart rate 80 /min Jaycob Yang MD Work Phone: [facility] 06-10-2025 08:39-0400 Respiratory rate 18 /min Jaycob Yang MD Work Phone: [facility] 06-10-2025 08:39-0400 SaO2% (BldA) [Mass fraction] 100 % Jaycob Yang MD Work Phone: [facility] 06-10-2025 08:39-0400 Systolic blood pressure 137 mm[Hg] Jaycob Yang MD Work Phone: [facility] 06-10-2025 05:26-0400 Body mass index (BMI) [Ratio] 35.2 kg/m2 Jaycob Yang MD Work Phone: [facility] 06-10-2025 05:26-0400 Body weight 111.4 kg Jaycob Yang MD Work Phone: [facility] 06-09-2025 14:00-0400 Body temperature 97.3 [degF] Jaycob Yang MD Work Phone: [facility] 06-09-2025 14:00-0400 Diastolic blood pressure 62 mm[Hg] Jaycob Yang MD Work Phone: [facility] 06-09-2025 14:00-0400 Heart rate 79 /min Jaycob Yang MD Work Phone: [facility] 06-09-2025 14:00-0400 Respiratory rate 18 /min Jaycob Yang MD Work Phone: [facility] 06-09-2025 14:00-0400 SaO2% (BldA) [Mass fraction] 97 % Jaycob Yang MD Work Phone: [facility] 06-09-2025 14:00-0400 Systolic blood pressure 109 mm[Hg] Jaycob Yang MD Work Phone: [facility] 06-09-2025 07:14-0400 Inhaled oxygen flow rate 2 L/min Jaycob Yang MD Work Phone: [facility] 06-09-2025 06:00-0400 Body mass index (BMI) [Ratio] 35.2 kg/m2 Jaycob Yang MD Work Phone: [phone] [place] [address] 06-09-2025 06:00-0400 Body weight 111.5 kg Jaycob Yang MD Work Phone: [facility] 06-08-2025 22:58-0400 Body height 177.8 cm Jaycob Yang MD Work Phone: [facility] 06-08-2025 21:38-0400 Body temperature 98.6 [degF] Jaycob Yang MD Work Phone: [facility] 06-08-2025 21:38-0400 Diastolic blood pressure 70 mm[Hg] Jaycob Yang MD Work Phone: [facility] 06-08-2025 21:38-0400 Heart rate 70 /min Jaycob Yang MD Work Phone: [facility] 06-08-2025 21:38-0400 Respiratory rate 18 /min Jaycob Yang MD Work Phone: [facility] 06-08-2025 21:38-0400 SaO2% (BldA) [Mass fraction] 98 % Jaycob Yang MD Work Phone: [facility] 06-08-2025 21:38-0400 Systolic blood pressure 138 mm[Hg] Jaycob Yang MD Work Phone: [facility] 06-08-2025 17:44-0400 Body height 177.8 cm Jaycob Yang MD Work Phone: [facility] 06-08-2025 17:44-0400 Body mass index (BMI) [Ratio] 35.9 kg/m2 Jaycob Yang MD Work Phone: [facility] 06-08-2025 17:44-0400 Body weight 113.6 kg Jaycob Yang MD Work Phone: [facility] 05-31-2025 11:55-0400 Body temperature 97.9 [degF] Jaycob Yang MD Work Phone: [facility] 05-31-2025 11:55-0400 Diastolic blood pressure 77 mm[Hg] Jaycob Yang MD Work Phone: [facility] 05-31-2025 11:55-0400 Heart rate 74 /min Jaycob Yang MD Work Phone: [facility] 05-31-2025 11:55-0400 Respiratory rate 16 /min Jaycob Yang MD Work Phone: [facility] 05-31-2025 11:55-0400 SaO2% (BldA) [Mass fraction] 99 % Jaycob Yang MD Work Phone: [facility] 05-31-2025 11:55-0400 Systolic blood pressure 138 mm[Hg] Jaycob Yang MD Work Phone: [facility] 05-31-2025 07:25-0400 Body height 177.8 cm Jaycob Yang MD Work Phone: [facility] 05-31-2025 07:25-0400 Body mass index (BMI) [Ratio] 35.3 kg/m2 Jaycob Yang MD Work Phone: [facility] 05-31-2025 07:25-0400 Body weight 111.76 kg Jaycob Yang MD Work Phone: [facility] 05-29-2025 13:13-0400 Body temperature 98.1 [degF] Jaycob Yang MD Work Phone: [facility] 05-29-2025 13:13-0400 Diastolic blood pressure 78 mm[Hg] Jaycob Yang MD Work Phone: [facility] 05-29-2025 13:13-0400 Heart rate 81 /min Jaycob Yang MD Work Phone: [facility] 05-29-2025 13:13-0400 Respiratory rate 17 /min Jaycob Yang MD Work Phone: [facility] 05-29-2025 13:13-0400 SaO2% (BldA) [Mass fraction] 97 % Jaycob Yang MD Work Phone: [facility] 05-29-2025 13:13-0400 Systolic blood pressure 122 mm[Hg] Jaycob Yang MD Work Phone: [facility] 03-08-2025 18:45-0400 Body temperature 97 [degF] Jaycob Yang MD Work Phone: [facility] 03-08-2025 18:45-0400 Diastolic blood pressure 76 mm[Hg] Jaycob Yang MD Work Phone: [facility] 03-08-2025 18:45-0400 Heart rate 76 /min Jaycob Yang MD Work Phone: [facility] 03-08-2025 18:45-0400 Respiratory rate 16 /min Jaycob Yang MD Work Phone: [facility] 03-08-2025 18:45-0400 SaO2% (BldA) [Mass fraction] 98 % Jaycob Yang MD Work Phone: [facility] 03-08-2025 18:45-0400 Systolic blood pressure 132 mm[Hg] Jaycob Yang MD Work Phone: [facility] 03-08-2025 16:10-0400 Body height 177.8 cm Jaycob Yang MD Work Phone: [facility] 03-08-2025 16:10-0400 Body mass index (BMI) [Ratio] 35.3 kg/m2 Jaycob Yang MD Work Phone: [facility] 03-08-2025 16:10-0400 Body weight 111.6 kg Jayocb Yang MD Work Phone: [facility] 02-03-2025 14:31-0400 Body height 177.8 cm Jaycob Yang MD Work Phone: [facility] 02-03-2025 14:31-0400 Body mass index (BMI) [Ratio] 36.1 kg/m2 Jaycob Yang MD Work Phone: [facility] 02-03-2025 14:31-0400 Body temperature 98 [degF] Jaycob Yang MD Work Phone: [facility] 02-03-2025 14:31-0400 Body weight 114.3 kg Jaycob Yang MD Work Phone: [facility] 02-03-2025 14:31-0400 Diastolic blood pressure 72 mm[Hg] Jaycob Yang MD Work Phone: [facility] 02-03-2025 14:31-0400 Heart rate 74 /min Jaycob Yang MD Work Phone: [facility] 02-03-2025 14:31-0400 Respiratory rate 14 /min Jaycob Yang MD Work Phone: [facility] 02-03-2025 14:31-0400 SaO2% (BldA) [Mass fraction] 98 % Jaycob Yang MD Work Phone: [facility] 02-03-2025 14:31-0400 Systolic blood pressure 192 mm[Hg] Jaycob Yang MD Work Phone: [facility] 08-17-2024 11:07-0400 Body height 177.8 cm Malou Donovan [employer] ASSIST[employer] Work Phone: [facility] 08-17-2024 11:07-0400 Body mass index (BMI) [Ratio] 37.19 kg/m2 Malou Donovan [employer] ASSIST[employer] Work Phone: [facility] 08-17-2024 11:07-0400 Body temperature 97.11 [degF] Malou Donovan [employer] ASSIST[employer] FINISH[employer] Work Phone: [facility] 08-17-2024 11:07-0400 Body weight 117.57 kg Malou Donovan [employer] ASSIST[employer] FINISH[employer] Work Phone: [facility] 08-17-2024 11:07-0400 Diastolic blood pressure 80 mm[Hg] Malou Donovan [employer] ASSISTANT[employer] FINISH[employer] Work Phone: [facility] 08-17-2024 11:07-0400 Heart rate 84 /min Malou Donovan [employer] ASSISTANT.[employer]IPE FINISH[employer] Work Phone: [facility] 08-17-2024 11:07-0400 SaO2% (BldA) [Mass fraction] 97 % Malou Carsonir [employer]OP ASSISTANT.TRIPE FINISHER Work Phone: [facility] 08-17-2024 11:07-0400 Systolic blood pressure 122 mm[Hg] Malou Carsonir [employer]OP ASSISTANT.TRIPE FINISHER Work Phone: [facility] 12-09-2023 16:36-0500 Diastolic blood pressure 76 mm[Hg] [facility] 12-09-2023 16:36-0500 Systolic blood pressure 140 mm[Hg] [facility] 12-09-2023 14:07-0500 Heart rate 80 /min [facility] 12-09-2023 14:07-0500 SaO2% (BldA) [Mass fraction] 98 % [facility] 12-09-2023 13:29-0500 Body height 178 cm [facility] 12-09-2023 13:29-0500 Body mass index (BMI) [Ratio] 35.3 kg/m2 [facility] 12-09-2023 13:29-0500 Body temperature 96.7 [degF] [facility] 12-09-2023 13:29-0500 Body weight 112.03 kg [facility] 12-09-2023 13:29-0500 Respiratory rate 22 /min [facility] 01-07-2023 15:42-0500 Diastolic blood pressure 69 mm[Hg] [facility] 01-07-2023 15:42-0500 Systolic blood pressure 147 mm[Hg] [facility] 01-07-2023 13:29-0500 Heart rate 76 /min [facility] 01-07-2023 13:29-0500 Respiratory rate 15 /min [facility] 01-07-2023 13:29-0500 SaO2% (BldA) [Mass fraction] 98 % [facility] 01-07-2023 12:30-0500 Body height 177.8 cm [facility] 01-07-2023 12:30-0500 Body mass index (BMI) [Ratio] 34.2 kg/m2 [facility] 01-07-2023 12:30-0500 Body temperature 97.5 [degF] [facility] 01-07-2023 12:30-0500 Body weight 108.4 kg [facility] 10-12-2022 21:45-0500 Diastolic blood pressure 71 mm[Hg] [facility] 10-12-2022 21:45-0500 Heart rate 70 /min [facility] 10-12-2022 21:45-0500 Respiratory rate 12 /min [facility] 10-12-2022 21:45-0500 SaO2% (BldA) [Mass fraction] 98 % [facility] 10-12-2022 21:45-0500 Systolic blood pressure 121 mm[Hg] [facility] 10-12-2022 18:42-0500 Body height 177.8 cm [facility] Work Phone: 10-12-2022 18:42-0500 Body mass index (BMI) [Ratio] 36.3 kg/m2 [facility] 10-12-2022 18:42-0500 Body temperature 97.1 [degF] [facility] 10-12-2022 18:42-0500 Body weight 114.89 kg [facility] 12-26-2021 12:02-0500 Body height 177.8 cm [facility] Work Phone: 12-26-2021 12:02-0500 Body mass index (BMI) [Ratio] 35.9 kg/m2 [facility] Work Phone: 12-26-2021 12:02-0500 Body temperature 96.8 [degF] [facility] Work Phone: 12-26-2021 12:02-0500 Body weight 113.39 kg [facility] Work Phone: 12-26-2021 12:02-0500 Diastolic blood pressure 72 mm[Hg] [facility] Work Phone: 12-26-2021 12:02-0500 Heart rate 99 /min [facility] Work Phone: 12-26-2021 12:02-0500 Respiratory rate 18 /min [facility] Work Phone: 12-26-2021 12:02-0500 SaO2% (BldA) [Mass fraction] 99 % [facility] Work Phone: 12-26-2021 12:02-0500 Systolic blood pressure 186 mm[Hg] [facility] Work Phone: 11-26-2021 12:37-0500 Diastolic blood pressure 75 mm[Hg] [facility] Work Phone: 11-26-2021 12:37-0500 Heart rate 74 /min [facility] Work Phone: 11-26-2021 12:37-0500 Respiratory rate 10 /min [facility] Work Phone: 11-26-2021 12:37-0500 SaO2% (BldA) [Mass fraction] 97 % [facility] Work Phone: 11-26-2021 12:37-0500 Systolic blood pressure 149 mm[Hg] [facility] Work Phone: 11-26-2021 08:50-0500 Body temperature 97.9 [degF] [facility] Work Phone: 11-26-2021 08:48-0500 Body mass index (BMI) [Ratio] 35.6 kg/m2 [facility] Work Phone: 11-26-2021 08:48-0500 Body weight 112.49 kg [facility] Work Phone: Encounters Encounter Date Encounter Type Care Provider Facility Start: 06-10-2025 Non-patient / Non-visit Dr. Paulie Majano MD -[facility] Work Phone: Start: 06-09-2025 Non-patient / Non-visit Dr. Paulie Majano MD -[facility] Work Phone: Start: 06-08-2025 End: 06-10-2025 ambulatory Diomedes Fitzpatrick Facility:[facility] Start: 06-08-2025 End: 06-10-2025 Evaluation and management of inpatient Dr. Diomedes Fitzpatrick DO -[facility] Work Phone: Start: 06-08-2025 End: 06-10-2025 observation encounter Jaycob Yang MD Work Phone: -[facility] 3 Start: 06-04-2025 End: 06-04-2025 ambulatory Jaycob Yang MD Work Phone: -Laboratory [facility] Start: 06-04-2025 End: 06-04-[address] Jaycob Yang MD -Laboratory [facility] Start: 06-04-2025 End: 06-04-2025 ambulatory Jaycob Trey Facility:[facility] Start: 05-31-2025 End: 05-31-2025 Emergency department patient visit Jaycob Yang MD Work Phone: -Emergency Department Work Phone: Start: 05-29-2025 End: 05-29-2025 Patient encounter procedure Lashawn CARDENASC [facility] Work Phone: Start: 05-29-2025 End: 05-29-2025 ambulatory Jaycob Yang MD Work Phone: [facility] Start: 05-27-2025 End: 05-27-2025 ambulatory Jaycob Yang MD Work Phone: -Laboratory [facility] Start: 05-27-2025 End: 05-27-[address] Jaycob Yang MD -Laboratory [facility] Start: 05-27-2025 End: 05-27-2025 ambulatory Jaycob Trey Facility:[facility] Start: 05-19-2025 End: 05-19-2025 ambulatory Jaycob Yang MD Work Phone: -Laboratory [facility] Start: 05-19-2025 End: 05-19-2025 Patient encounter procedure Barrington MARIA -Laboratory Specimen Work Phone: Start: 05-19-2025 End: 05-19-2025 ambulatory [facility] Facility:[facility] Start: 03-08-2025 Non-patient / Non-visit Geovani Susu linad DO -[facility] Start: 03-08-2025 End: 03-08-2025 Admission to same day surgery center Geovani Ramirez DO -[facility] Work Phone: Start: 03-08-2025 End: 03-08-2025 ambulatory Jaycob Yang MD Work Phone: [facility] Work Phone: Start: 02-03-2025 End: 02-03-2025 Emergency department patient visit GREG TAMMI HENNING Facility:[facility] Start: 11-03-2024 End: 11-03-[address] 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); Screen for colon cancer; Crohn's disease of small and large intestines with complication (HCC) Start: 07-02-2024 ambulatory [facility] Facility:[facility] Start: 06-30-2024 End: 06-30-2024 ambulatory [facility] Facility:[facility] Start: 12-09-2023 End: 12-09-2023 Emergency department patient visit [facility]-Emergency Department Work Phone: Start: 04-30-2023 Non-patient / Non-visit DO Nestor Corea Work Phone: [facility] Start: 04-30-2023 Patient encounter procedure DO Marlene Corea Work Phone: [facility]Cardiovascula [facility] Services Start: 04-25-2023 End: 04-25-2023 ambulatory DO Marlene Corea Work Phone: [facility] Work Phone: Start: 04-25-2023 End: 04-25-2023 Patient encounter [facility] Start: 01-07-2023 End: 01-07-2023 Emergency department patient visit [facility]Emergency Department Start: 10-12-2022 End: 10-12-2022 Emergency department patient visit [facility]Emergency Department Start: 08-08-2022 End: 08-08-2022 ambulatory [facility] Work Phone: Start: 08-08-2022 End: 08-08-2022 Patient encounter procedure [facility]-Laboratory, Specimen Start: 03-27-2022 End: 03-27-2022 ambulatory [facility] Start: 03-16-2022 End: 03-16-2022 ambulatory [facility] Start: 02-21-2022 End: 02-21-2022 ambulatory [facility] Start: 02-16-2022 End: 02-16-2022 Patient encounter procedure [facility]-Radiology, [facility] Start: 01-31-2022 End: 01-31-2022 Patient encounter procedure [facility] Start: 12-26-2021 End: 12-26-2021 Emergency department patient visit [facility]Emergency [facility] Start: 11-26-2021 End: 11-26-2021 Emergency department patient visit [facility]Emergency Department Start: 11-05-2018 End: 11-05-2018 Patient encounter procedure TONIO TERAN JR [facility] Start: 10-23-2018 End: 10-23-2018 Evaluation and management of inpatient TONIO TERAN Facility:[facility] Start: 10-23-2018 End: 10-23-2018 Patient encounter procedure TONIO TERAN JR [facility] Start: 08-15-2018 End: 08-15-2018 Patient encounter procedure TONIO TERAN JR [facility] Start: 07-08-2018 End: 07-08-2018 Patient encounter procedure TONIO TERAN JR [facility] Start: 06-10-2018 End: 06-10-2018 Patient encounter procedure TONIO TERAN JR [facility] Start: 06-06-2018 Patient encounter procedure TONIO TERAN Facility:[facility] Start: 05-23-2018 End: 05-23-2018 Evaluation and management of inpatient TONIO TERAN Facility:[facility] Start: 05-23-2018 End: 05-23-2018 Patient encounter procedure TONIO TERAN JR [facility] Start: 05-22-2018 End: 05-22-2018 Patient encounter procedure TONIO TERAN JR [facility] Start: 05-21-2018 End: 05-21-2018 Patient encounter procedure TONIO TERAN JR [facility] Procedures Date Procedure Procedure Detail Performing Clinician Start: 06-10-2025 Serum inorganic phosphate measurement Jaycob Yang MD Work Phone: Start: 06-09-2025 Estimated creatinine clearance Jaycob mcdonough MD Work Phone: Start: 06-09-2025 Serum inorganic phosphate measurement Jaycob Yang MD Work Phone: Start: 06-08-2025 Urnls dip stick/tablet reagent auto microscopy Jaycob Yang MD Work Phone: Start: 06-08-2025 X-ray of foot, three or more views Roberto Yang MD Work Phone: Start: 06-08-2025 Estimated creatinine clearance Jaycob mcdonough MD Work Phone: Start: 06-04-2025 Vitamin D, 25-hydroxy measurement Jaycob Yang MD Work Phone: Comment on above: Vitamin D StatusDeficiency: <20 ng/mL (5 0nmol/L)Insufficiency: 20-30 ng/mL (50-75 nmol/L)Sufficiency: 30-100 ng/mL (75-250 nmol/L)Toxicity: >100 ng/mL (>250 nmol/L) Start: 05-31-2025 Urnls dip stick/tablet reagent auto [...] nerve S/P carpal tunnel release Malou Villagomez APRN.CNP Work Phone: Urine culture Plan of Treatment Date Care Activity Detail Author Start: 01-24-2032 Urine microalbumin profile DTaP,Tdap,Td Vaccine (3 - Td or Tdap) [facility] Start: 06-10-2025 Patient discharge [facility] Start: 06-10-2025 Serum inorganic phosphate measurement [facility] Start: 06-08-2025 Assessment of risk of venous thromboembolism [facility] Start: 06-08-2025 Incentive spirometry [facility] Start: 06-08-2025 Insertion of catheter into peripheral vein [facility] Start: 06-08-2025 Measuring intake and output [facility] Start: 06-08-2025 Oxygen therapy [facility] Start: 06-08-2025 Providing care according to standard [facility] Start: 06-08-2025 Provision of activity privileges [facility] Start: 06-08-2025 Referral to occupational therapist [facility] Start: 06-08-2025 Referral to service [facility] Start: 06-08-2025 [facility] Start: 06-08-2025 Following clinical pathway protocol [facility] Start: 06-08-2025 Verification routine [facility] Start: 06-08-2025 Admission procedure [facility] Start: 06-08-2025 Hospital admission, emergency, from emergency room, medical nature [facility] Start: 06-08-2025 [facility] Start: 05-31-2025 [facility] Start: 03-08-2025 Hospital admission, emergency, from emergency room, medical nature [facility] Start: 03-08-2025 Egd flexible foreign body removal EGD REMOVE FOREIGN BODY [facility] Start: 03-08-2025 Patient discharge [facility] Start: 07-26-2024 Covid-19 Vaccine ( season) Covid-19 Vaccine ( season) [facility] Start: 07-26-2024 Influenza vaccination Influenza Vaccine (#1) [facility] Start: 05-04-2024 Diabetes Screening Diabetes Screening [facility] Start: 12-10-2023 [facility] Start: 12-09-2023 [facility] Start: 12-09-2023 [facility] Start: 11-25-2023 Advance Directive Discussion Advance Directive Discussion [facility] Start: 10-12-2022 [facility] Start: 2022 RSV Vaccine (1 - 1-dose 75+ series) RSV Vaccine (1 - 1-dose 75+ series) [facility] Start: 12-26-2021 Smpl repair scalp/neck/ax/genit/trunk 2.6-7.5cm RPR S/N/AX/GEN/TRNK2.6-7.5 CM [facility] Work Phone: Start: 1963 Annual PCP Team Chronic Disease Visit Annual PCP Team Chronic Disease Visit [facility] Start: 1963 Depression Screening Depression Screening [facility] Start: 1963 Hepatitis C screening Hepatitis C Screening [facility] Folate [Moles/volume ] in Serum or Plasma [facility] Magnesium measurement [facility] Patient Education [facility] Work Phone: Patient referral [facility] Work Phone: Zinc [Mass/volume] i n Serum or Plasma [facility] Immunizations Immunization Date Immunization Notes Care Provider Fa alondra 09-11-2023 influenza virus vacc ine, unspecified formulation Malou Donovan [employer] ASSIST[employer]ISH[employer] Work Phone: [facility] 12-26-2021 tetanus toxoid, redu joanne diphtheria toxoid, and acellular pertussis vaccine, adsorbed [facility] 02-01-2021 Covid (Pfizer) [facility] 01-14-2021 Covid (Pfizer) [facility] 09-03-2015 influenza, high dose seasonal, preservative-free Malou Donovan [employer] ASSIST[employer] FIN[employer]ER Work Phone: [facility] 11-25-2014 pneumococcal polysaccharide vaccine, 23 valent Malou Donovan [employer]OP ASSISTANT.[employer] FINISHER Work Phone: [facility] 08-25-2013 Pneumococcal Vaccine [facility] Work Phone: 08-25-2013 pneumococcal vaccine , unspecified formulation [facility] Payers Date Payer Category Payer Self-pay [id number] 2025 Private Health Insurance [id number] 2025 Unknown [id number] 2024 Private Health Insurance [id number] 2024 Self-pay [id number] 2019 Private Health Insurance [facility] CC[employer] [id number] 2019-Present [phone] [address] [place] [id number] PPO [id number] 2019 Unknown [id number] 1945 Unknown [id number] 2.16.840.1.289857.3.579. 2.278 1945 Unknown [id number] 2.16.840.1.502063.3.579. 2.278 1945 Unknown [id number] 2.16.840.1.844082.3.579. 2.278 1947 Unknown [id number] 2.16.840.1.714715.3.579. 2.278 1947 Unknown [id number] 2.16.840.1.998686.3.579. 2.278 1947 Unknown [id number] 2.16.840.1.292186.3.579. 2.278 1947 Unknown [id number] 2.16.840.1.860698.3.579. 2.278 1947 Unknown [id number] 2.16.840.1.400399.3.579. 2.278 1947 Unknown [id number] 2.16.840.1.413870.3.579. 2.278 1947 Unknown [id number] 2.16.840.1.389971.3.579. 2.278 1947 Unknown [id number] 2.16.840.1.709215.3.579. 2.651 1947 Unknown [id number] 2.16.840.1.593219.3.579. 2.651 1947 Unknown [id number] 2.16.840.1.599540.3.579. 2.651 1947 Unknown [id number] 2.16.840.1.510662.3.579. 2.627 Unknown [id number] Unknown [id number] 2.16.840.1.426690.3.579. 2.462 Unknown [id number] 2.16.840.1.020790.3.579. 2.462 Unknown [id number] 2.16.840.1.414363.3.579. 2.462 Unknown [id number] 2.16.840.1.460455.3.579. 2.462 Unknown [id number] 2.16.840.1.896930.3.579. 2.462 Unknown [id number] 2.16.840.1.763767.3.579. 2.462 Unknown [id number] 2.16.840.1.016345.3.579. 2.462 Unknown [id number] 2.16.840.1.807572.3.579. 2.462 Unknown [id number] 2.16.840.1.884722.3.579. 2.462 Unknown [id number] 2.16.840.1.759140.3.579. 2.462 Unknown [id number] 2.16.840.1.122858.3.579. 2.462 Unknown [id number] 2.16.840.1.052826.3.579. 2.462 Unknown [id number] 2.16.840.1.531193.3.579. 2.462 Unknown [id number] 2.16.840.1.622449.3.579. 2.462 Unknown [id number] 2.16.840.1.610415.3.579. 2.462 Unknown [id number] 2.16.840.1.357336.3.579. 2.462 Social History Date Type Detail Facility Start: 12-26-2021 End: 12-09-2023 Tobacco smoking status NHIS Unknown if ever smoked [facility] Start: 12-25-2019 None [facility] Start: 12-25-2019 Alone [facility] Start: 1945 Sex Assigned At Male [facility] Start: 08-17-2024 End: 06-08-2025 Tobacco smoking status NHIS Ex-smoker [facility] Start: 12-06-1978 End: 12-06-1993 History of tobacco use Current smoker [facility] Start: 12-06-1978 End: 12-06-1993 History of tobacco use Cigarette Smoker [facility] Start: 08-17-2024 Cigarettes smoked current (pack per day) - Reported 0.5 [facility] Start: 08-17-2024 Tobacco use and exposure Smokeless tobacco non-user [facility] Start: 08-17-2024 Alcoholic beverage intake Current drinker of alcohol (finding) [facility] Start: 08-17-2024 Tobacco use panel [facility] National Score (1-10 0), lower number is lower risk 71 [facility] Start: 1945 Sex assigned at Not on file [facility] Start: 02-03-2025 End: 03-08-2025 Sex Male (finding) [facility] Goals Date Patient Goal Desired Activity /State Functional Status Date Assessment Result Facility 06-10-2025 Functional status Ambulates;Chair [facility] Work Phone: 06-09-2025 Functional status Ambulates [facility] Work Phone: Mental Status Date Assessment Result Facility 06-10-2025 Cognitive function Voice/Name [facility] Work Phone: 06-09-2025 Cognitive function Voice/Name [facility] Work Phone: 05-31-2025 Cognitive function Level Of Cons ciousness Awake;Alert;Appropriate;Follow s Commands [facility] Work Phone: 03-08-2025 Cognitive function Voice/Name [facility] Work Phone: 12-09-2023 Cognitive function Level Of Cons ciousness Awake;Alert;Appropriate;Follow s Commands [facility] Work Phone: 01-07-2023 Cognitive function Voice/Name [facility] Work Phone: 10-12-2022 Cognitive function Voice/Name [facility] Work Phone: 11-26-2021 Cognitive function Voice/Name [facility] Work Phone: Clinical Notes 08-17-2024 to 06-10-2025 Note Date & Type Note Facility 06-10-2025 Hospital Discharg e instructions Additional Instructions Patient states he has follow-up appointment with neurologist in [facility]. Outpatient physical therapy recommended Date of Discharge: 06/10/25 [facility] Work Phone: 06-10-2025 Discharge summary Note Date/Time June 10, 2025 11:57am [facility] Medical Records Department [address] [place] [address] Discharge Summary 06/10/25 1132 MR#: [id number] Acct: [id number] Name: LIBRADO GUILLEN Rep #:[id number] : 1945 79 From: Paulie Smith PCP: Dr. Jaycob Yang MD Status:ADM IN Location: [facility] [place] [id number] Providers Date of Admission: 06/08/25 Date of Discharge: 06/10/25 Primary Care Physician: Jaycob Yang MD Reason For Visit: BILATERAL FOOT PAIN WITH INABILITY TO AMBULATE Diagnosis Discharge Diagnosis (1) Bilateral foot pain: Status: Acute Code(s): M79.671 - Pain in right foot; M79.672 - Pain in left foot (2) Neuropathy: Status: Acute Code(s): G62.9 - Polyneuropathy, unspecified (3) Adverse drug reaction: Status: Acute Code(s): T50.905A - Adverse effect of unspecified drugs, medicaments and biological substances, initial encounter Qualifiers: Encounter type: initial encounter Qualified Code(s): T50.905A - Adverseeffect of unspecified drugs, medicaments and biological substances, initial encounter (4) Generalized weakness: Status: Acute Code(s): R53.1 - Weakness (5) Ambulatory dysfunction: Status: Acute Code(s): R26.2 - Difficulty in walking, not elsewhere classified (6) Obesity (BMI 30-39.9): Status: Acute Code(s): E66.9 - Obesity, unspecified (7) History of Crohn's disease: Status: Acute Code(s): Z87.19 - Personal history of other diseases of the digestive system Plan B/L feet pain getting worse over past 3 weeks. Pain is harp, wose with weight bearing, follows Podiarist at [facility]. Numbness below knees for 3 weeks 1. Bilateral foot pain; presumably due to severe neuropathy (not from B-12 deficiency with level of 515 pg/mL present on admission) with patient recently started on gabapentin with subsequent side effect of dizziness confusion and disorientation suggestive of acute encephalopathy- Admit to general medical floor under observation status. Hold gabapentin. Start pregabalin 50 mg p.o. 3times daily and titrate as needed to control symptoms. Pain control 06/10: Patient had walked with an physical therapy on the walker. He has suboptimal problem in equilibrium and balance. Recommended outpatient physical therapy. Patient is a [place] and discussed with the web content & social media manager. He declined home health referral. Patient stated he has appointment with neurologist through [place]. Advised to follow-up with him if not then he can follow-up with ourneurologist, Dr. Chadwick 2. Generalized Weakness with Ambulatory Dysfunction attributable to #1 - PT/OT and Case Management consult patient also said he is feeling dizzy and not safe to go home today therefore advised PT and OT. His feet feel painful 3. Obesity (class II); with BMI of 35.9 this admission plus FABIANO; on CPAP addingto the burden of disease: Weight loss recommended maintain nocturnal CPAP as before. This complicates his case and may hamper recovery. 4. History of Crohn's disease; on benralizumab, vedolizumab and prednisone Resume home regimen to prevent acute flare. 5. GERD; on famotidine and esomeprazole - Resume H2-ambrosio and PPI. 6. Degenerative OA; on ibuprofen every 8 hours as needed at home-. DVT prophylaxis - Enoxaparin 40 mg subcu daily. Discharge medication reconciliation done. Discharge follow-up instructions completed. Discharge process discussed with the patient and all questions wereanswered to patient's satisfaction. Follow with PCP in 1 to 2 weeks Total time spent, exact 35 minutes on discharge meds reconciliation, examination, coordination of care with nurses and ancillary staff, review of imaging and blood test and discussion with the patient on follow-up instructions. Medications at Discharge Home Medications benralizumab 10 mg/0.5 mL subcutaneous syringe (Fasenra) 30 mg subcut Q8W 05/29/25 polyethylene glycol 3350 17 gram/dose oral powder (Miralax) 4 g PO ONCE 05/29/25 vedolizumab 300 mg intravenous solution (Entyvio) 300 mg IV .COMPLEX 05/29/25 albuterol sulfate 90 mcg/actuation breath activated powder inhaler 2 inh inhalation Q4H PRN shortness of breath 05/31/25 bisacodyl 5 mg tablet 5 mg PO QODAY 05/31/25 dicyclomine 20 mg tablet 20 mg PO 4X/DAY 05/31/25 esomeprazole magnesium 40 mg capsule,delayed release 40 mg PO DAILY 05/31/25 famotidine 20 mg tablet (Acid Controller) 20 mg PO QHS 05/31/25 ipratropium bromide 42 mcg (0.06 %) nasal spray 2 spray intranasal TID PRN allergy symptoms 05/31/25 prednisone 1 mg tablet 4 mg PO DAILY 05/31/25 fluticasone furoate 200 mcg-vilanterol 25 mcg/dose inhalation powder (Breo Ellipta) 1 inh inhalation DAILY 06/08/25 ibuprofen 600 mg tablet 600 mg PO Q8H PRN PRN pain #20 TABLETS 06/08/25 Physical Exam Narrative Seen and examined. Patient can walk with the walker. Has problem in turning around and balance. Patient still has still numbness in the right leg [facility] and probably had EMG/NCV study about 20 years ago which she does not remember. Physical exam General: Alert, Oriented x3, Cooperative HEENT: Atraumatic, PERRLA, EOMI, Normocephalic. Oral: No Gingival or Mucosal Lesions/ Ulcerations Neck: Supple, No JVD, Negative Carotid Bruits Chest wall/Lungs: Air entry diminished in bilateral lung bases. No crepitation/rhonchi Cardiovascular: Regular rate and rhythm, Normal S1,S2, No M/G/R Abdomen: Bowel Sounds Present, Soft, Non Tender, Non-Distended : No dysuria. No renal angle tenderness. No suprapubic tenderness. Extremities: No edema, Capillary Refill Less than 3 Seconds Skin: No rashes, No breakdown Musculoskeletal: No Tenderness to Palpation of Joints or Extremities Neurological: Cranial nerves II-XII grossly intact, DTR 2+/4. Numbness in right foot. Psych/Mental Status: Normal Affect, Appropriate. Weight / BMI Weight Weight: 245 lb 9.519 oz Body Mass Index (BMI) 35.2 ABG / Lab / Microbiology Data 06/09/25 04:16 06/09/25 04:16 Laboratory: Laboratory Results - last 24 hr 06/10/25 06:17: Phosphorus 3.2 D/C Instructions Weight Bearing Status: Weight bearing as tolerated Call your doctor if you observe: Fever of 101 or Higher, Coldness, Increased Pain, Numbness or Tingling, Change in Color, Inability to urinate, Inability to have a bowel movement, Shortness of breath, Dizziness, Fainting spells, Swellingin the ankles, Chest pain, Prolonged hiccupping, Increased palpitations (irregular heartbeat) and Calf discomfort DC O2, CPAP, BIPAP Needs Home O2 Discharge instructions: No When: IN 2 WEEKS Meaningful Use Info Meaningful Use Meaningful Use Diagnoses (Choose all that apply): None applicable Discharge Plan Admission Admit Date/Time: 06/08/25 22:03 Primary Reason for Your Visit: Neuropathy Attending Provider: Paulie Majano Primary Care Provider: Jaycob Yang Consulting Providers: Diomedes Fitzpatrick Instructions Additional Instructions / Restrictions: Patient states he has follow-up appointment with neurologist in [place] through [facility]. Outpatient physical therapy recommended Discharge Orders/Prescriptions Prescriptions: New ibuprofen 600 mg tablet 600 mg PO Q8H PRN PRN (Reason: pain) Qty: 20 0RF Continued Fasenra 10 mg/0.5 mL syringe 30 mg subcut Q8W Rx Instructions: start week 16 of treatment Entyvio 300 mg recon soln 300 mg IV .COMPLEX Rx Instructions: 300 mg intravenously q 8 weeks; 300 mg intravenously; every 8 weeks polyethylene glycol 3350 [Miralax] 17 gram/dose powder 4 g PO ONCE fluticasone furoate-vilanterol [Breo Ellipta] 200-25 mcg/dose blister with device 1 inh inhalation DAILY ipratropium bromide 42 mcg (0.06 %) spray,non-aerosol 2 spray INTRANASAL TID PRN (Reason: allergy symptoms) albuterol sulfate 90 mcg/actuation aerosol powdr breath activated 2 inh inhalation Q4H PRN (Reason: shortness of breath) prednisone 1 mg tablet 4 mg PO DAILY dicyclomine 20 mg tablet 20 mg PO 4X/DAY famotidine [Acid Controller] 20 mg tablet 20 mg PO QHS esomeprazole magnesium 40 mg capsule,delayed release(DR/EC) 40 mg PO DAILY bisacodyl 5 mg tablet 5 mg PO QODAY Referrals / Follow Up: Jaycob Yang MD [Primary Care Provider] - Within 2 Weeks Clemente Chadwick MD [Non-Staff -Ordering Privileges] - Within 2 Weeks Disposition Disposition (needs filled in before D/C Order can be placed): Home, Self Care Charges/Coding Visit Charges Inpatient E&M: 04627 Disch Hosp >30min 06/10/25 1157 <Electronically signed by Paulie Majano MD> Cosigner Signature (if applicable): CC: Dr. Jaycob Yang MD; Dr. Paulie Majano MD~ Signed [facility] Work Phone: 1(260) 358-617107-17-2025 Discharge summary Author Paulie Majano [facility] Note Date/Time June 10, 2025 11:3 2am [facility] Medical Records Department [address] [place] [address] Instructions for Home/Discharge Instructions 06/10/25 1030 MR#: [id number] Acct: [id number] Name: LIBRADO GUILLEN Rep #:[id number] : 1945 79 From: Paulie Smith PCP: Dr. Jaycob Yang MD Status:ADM IN O Discharge Instructions DC O2, CPAP, BIPAP needs Home O2 Discharge instructions: No Dressing / Incision Discharge Activity: Return to Normal Activity Weight Bearing Status: Weight bearing as tolerated Dressing / Incision Call your doctor if you observe: Fever of 101 or Higher, Coldness, Increased Pain, Numbness or Tingling, Change in Color, Inability to urinate, Inability to have a bowel movement, Shortness of breath, Dizziness, Fainting spells, Swellingin the ankles, Chest pain, Prolonged hiccupping, Increased palpitations (irregular heartbeat) and Calf discomfort Follow Up Care When: IN 2 WEEKS Test Results: Test results from this visit will be discussed in further detail at your follow- up appointment, if applicable. Discharge Plan Admission Admit Date/Time: 06/08/25 22:03 Primary Reason for Your Visit: Neuropathy Attending Provider: Paulie Majano Primary Care Provider: Jaycob Yang Consulting Providers: Diomedes Fitzpatrick Instructions Additional Instructions / Restrictions: Patient states he has follow-up appointment with neurologist in [place] through [facility]. Outpatient physical therapy recommended Discharge Orders/Prescriptions Prescriptions: New ibuprofen 600 mg tablet 600 mg PO Q8H PRN PRN (Reason: pain) Qty: 20 0RF Continued Fasenra 10 mg/0.5 mL syringe 30 mg subcut Q8W Rx Instructions: start week 16 of treatment Entyvio 300 mg recon soln 300 mg IV .COMPLEX Rx Instructions: 300 mg intravenously q 8 weeks; 300 mg intravenously; every 8 weeks polyethylene glycol 3350 [Miralax] 17 gram/dose powder 4 g PO ONCE fluticasone furoate-vilanterol [Breo Ellipta] 200-25 mcg/dose blister with device 1 inh inhalation DAILY ipratropium bromide 42 mcg (0.06 %) spray,non-aerosol 2 spray INTRANASAL TID PRN (Reason: allergy symptoms) albuterol sulfate 90 mcg/actuation aerosol powdr breath activated 2 inh inhalation Q4H PRN (Reason: shortness of breath) prednisone 1 mg tablet 4 mg PO DAILY dicyclomine 20 mg tablet 20 mg PO 4X/DAY famotidine [Acid Controller] 20 mg tablet 20 mg PO QHS esomeprazole magnesium 40 mg capsule,delayed release(DR/EC) 40 mg PO DAILY bisacodyl 5 mg tablet 5 mg PO QODAY Referrals / Follow Up: Jaycob Yang MD [Primary Care Provider] - Within 2 Weeks Clemente Chadwick MD [Non-Staff -Ordering Privileges] - Within 2 Weeks Disposition Disposition (needs filled in before D/C Order can be placed): Home, Self Care 06/10/25 1132<Electronically signed by Paulie Majano MD>Paulie Majano MD CC: Dr. Jaycob Yang MD; Dr. Diomedes Fitzpatrick DO ~ Signed [facility] Work Phone: 1(370) 136-595307-17-2025 Discharge summary [facility] Medical Records Department [address] [place] [address] Discharge Summary 06/10/25 1132 MR#: [id number] Acct: [id number] Name: LIBRADO GUILLEN Rep #:[id number] : 1945 79 From: Paulie Smith PCP: Dr. Jaycob Yang MD Status:ADM IN O Location: [facility] [id number] Providers Date of Admission: 06/08/25 Date of Discharge: 06/10/25 Primary Care Physician: Jaycob Yang MD Reason For Visit: BILATERAL FOOT PAIN WITH INABILITY TO AMBULATE Diagnosis Discharge Diagnosis (1) Bilateral foot pain: Status: Acute Code(s): M79.671 - Pain in right foot; M79.672 - Pain in left foot (2) Neuropathy: Status: Acute Code(s): G62.9 - Polyneuropathy, unspecified (3) Adverse drug reaction: Status: Acute Code(s): T50.905A - Adverse effect of unspecified drugs, medicaments and biological substances, initial encounter Qualifiers: Encounter type: initial encounter Qualified Code(s): T50.905A - Adverseeffect of unspecified drugs,medicaments and biological substances, initial encounter (4) Generalized weakness: Status: Acute Code(s): R53.1 - Weakness (5) Ambulatory dysfunction: Status: Acute Code(s): R26.2 - Difficulty in walking, not elsewhere classified (6) Obesity (BMI 30-39.9): Status: Acute Code(s): E66.9 - Obesity, unspecified (7) History of Crohn's disease: Status: Acute Code(s): Z87.19 - Personal history of other diseases of the digestive system Plan B/L feet pain getting worse over past 3 weeks. Pain is harp, wose with weight bearing, follows Podiarist at [facility]. Numbness below knees for 3 weeks 1. Bilateral foot pain; presumably due to severe neuropathy (not from B-12 deficiency with level of515 pg/mL present on admission) with patient recently started on gabapentin with subsequent side effect of dizziness confusion and disorientation suggestive of acute encephalopathy- Admit to general medical floor under observation status. Hold gabapentin. Start pregabalin 50 mg p.o. 3times daily and titrate as needed to control symptoms. Pain control 06/10: Patient had walked with an physical therapy on the walker. He has suboptimal problem in equilibrium and balance. Recommended outpatient physical therapy. [place] and discussed with the web content & social media manager. He declined home health referral. Patient stated he [facility]. Advised to follow-up with him if not then he can follow-up with ourneurologist, Dr. Chadwick 2. Generalized Weakness with Ambulatory Dysfunction attributable to #1 - PT/OT and Case Management consult patient also said he is feeling dizzy and not safe to go home today therefore advised PT andOT. His feet feel painful 3. Obesity (class II); with BMI of 35.9 this admission plus FABIANO; on CPAP addingto the burden of disease: Weight loss recommended maintain nocturnal CPAP as before. This complicates his case and may hamper recovery. 4. History of Crohn's disease; on benralizumab, vedolizumab and prednisone Resume home regimen to prevent acute flare. 5. GERD; on famotidine and esomeprazole - Resume H2-ambrosio and PPI. 6. Degenerative OA; on ibuprofen every 8 hours as needed at home-. DVT prophylaxis - Enoxaparin 40 mg subcu daily. Discharge medication reconciliation done. Discharge follow-up instructions completed. Discharge process discussed with the patient and all questions wereanswered to patient's satisfaction. Follow with PCP in 1 to 2 weeks Total time spent, exact 35 minutes on discharge meds reconciliation, examination, coordination of care with nurses and ancillary staff, review of imaging and blood test and discussion with the patient on follow-up instructions. Medications at Discharge Home Medications benralizumab 10 mg/0.5 mL subcutaneous syringe (Fasenra) 30 mg subcut Q8W 05/29/25 polyethylene glycol 3350 17 gram/dose oral powder (Miralax) 4 g PO ONCE 05/29/25 vedolizumab 300 mg intravenous solution (Entyvio) 300 mg IV .COMPLEX 05/29/25 albuterol sulfate 90 mcg/actuation breath activated powder inhaler 2 inh inhalation Q4H PRN shortness of breath 05/31/25 bisacodyl 5 mg tablet 5 mg PO QODAY 05/31/25 dicyclomine 20 mg tablet 20 mg PO 4X/DAY 05/31/25 esomeprazole magnesium 40 mg capsule,delayed release 40 mg PO DAILY 05/31/25 famotidine 20 mg tablet (Acid Controller) 20 mg PO QHS 05/31/25 ipratropium bromide 42 mcg (0.06 %) nasal spray 2 spray intranasal TID PRN allergy symptoms 05/31/25 prednisone 1 mg tablet 4 mg PO DAILY 05/31/25 fluticasone furoate 200 mcg-vilanterol 25 mcg/dose inhalation powder (Breo Ellipta) 1 inh inhalation DAILY 06/08/25 ibuprofen 600 mg tablet 600 mg PO Q8H PRN PRN pain #20 TABLETS 06/08/25 Physical Exam Narrative Seen and examined. Patient can walk with the walker. Has problem in turning around and balance. Patient still has still numbness in the right leg [facility] is [facility] and probably had EMG/NCV study about 20 years ago which she does not remember. Physical exam General: Alert, Oriented x3, Cooperative HEENT: Atraumatic, PERRLA, EOMI, Normocephalic. Oral: No Gingival or Mucosal Lesions/ Ulcerations Neck: Supple, No JVD, Negative Carotid Bruits Chest wall/Lungs: Air entry diminished in bilateral lung bases. No crepitation/rhonchi Cardiovascular: Regular rate and rhythm, Normal S1,S2, No M/G/R Abdomen: Bowel Sounds Present, Soft, Non Tender, Non-Distended : No dysuria. No renal angle tenderness. No suprapubic tenderness. Extremities: No edema, Capillary Refill Less than 3 Seconds Skin: No rashes, No breakdown Musculoskeletal: No Tenderness to Palpation of Joints or Extremities Neurological: Cranial nerves II-XII grossly intact, DTR 2+/4. Numbness in right foot. Psych/Mental Status: Normal Affect, Appropriate. Weight / BMI Weight Weight: 245 lb 9.519 oz Body Mass Index (BMI) 35.2 ABG / Lab / Microbiology Data 06/09/25 04:16 06/09/25 04:16 Laboratory: Laboratory Results - last 24 hr 06/10/25 06:17: Phosphorus 3.2 D/C Instructions Weight Bearing Status: Weight bearing as tolerated Call your doctor if you observe: Fever of 101 or Higher, Coldness, Increased Pain, Numbness or Tingling, Change in Color, Inability to urinate, Inability to have a bowel movement, Shortness of breath, Dizziness, Fainting spells, Swellingin the ankles, Chest pain, Prolonged hiccupping, Increased palpitations (irregular heartbeat) and Calf discomfort DC O2, CPAP, BIPAP Needs Home O2 Discharge instructions: No When: IN 2 WEEKS Meaningful Use Info Meaningful Use Meaningful Use Diagnoses (Choose all that apply): None applicable Discharge Plan Admission Admit Date/Time: 06/08/25 22:03 Primary Reason for Your Visit: Neuropathy Attending Provider: Paulie Majano Primary Care Provider: Jaycob Yang Consulting Providers: Diomedes Fitzpatrick Instructions Additional Instructions / Restrictions: Patient states he has follow-up appointment with neurologist in [place] through [facility]. Outpatient physical therapy recommended Discharge Orders/Prescriptions Prescriptions: New ibuprofen 600 mg tablet 600 mg PO Q8H PRN PRN (Reason: pain) Qty: 20 0RF Continued Fasenra 10 mg/0.5 mL syringe 30 mg subcut Q8W Rx Instructions: start week 16 of treatment Entyvio 300 mg recon soln 300 mg IV .COMPLEX Rx Instructions: 300 mg intravenously q 8 weeks; 300 mg intravenously; every 8 weeks polyethylene glycol 3350 [Miralax] 17 gram/dose powder 4 g PO ONCE fluticasone furoate-vilanterol [Breo Ellipta] 200-25 mcg/dose blister with device 1 inh inhalation DAILY ipratropium bromide 42 mcg (0.06 %) spray,non-aerosol 2 spray INTRANASAL TID PRN (Reason: allergy symptoms) albuterol sulfate 90 mcg/actuation aerosol powdr breath activated 2 inh inhalation Q4H PRN (Reason: shortness of breath) prednisone 1 mg tablet 4 mg PO DAILY dicyclomine 20 mg tablet 20 mg PO 4X/DAY famotidine [Acid Controller] 20 mg tablet 20 mg PO QHS esomeprazole magnesium 40 mg capsule,delayed release(DR/EC) 40 mg PO DAILY bisacodyl 5 mg tablet 5 mg PO QODAY Referrals / Follow Up: Jaycob Yang MD [Primary Care Provider] - Within 2 Weeks Clemente Chadwick MD [Non-Staff -Ordering Privileges] - Within 2 Weeks Disposition Disposition (needs filled in before D/C Order can be placed): Home, Self Care Charges/Coding Visit Charges Inpatient E&M: 89629 Disch Hosp >30min 06/10/25 9719 Cosigner Signature (if applicable): CC: Dr. Jaycob Yang MD; Dr. Paulie Majano MD~ Signed [facility]07-17-2025 Discharge summary [facility] Medical Records Department [address] [place] [address] Instructions for Home/Discharge Instructions 06/10/25 1030 MR#: [id number] Acct: [id number] Name: LIBRADO GUILLEN Rep #:[id number] : 1945 79 From: Paulie Smith PCP: Dr. Jaycob Yang MD Status:ADM IN O Discharge Instructions DC O2, CPAP, BIPAP needs Home O2 Discharge instructions: No Dressing / Incision Discharge Activity: Return to Normal Activity Weight Bearing Status: Weight bearing as tolerated Dressing / Incision Call your doctor if you observe: Fever of 101 or Higher, Coldness, Increased Pain, Numbness or Tingling, Change in Color, Inability to urinate, Inability to have a bowel movement, Shortness of breath, Dizziness, Fainting spells, Swellingin the ankles, Chest pain, Prolonged hiccupping, Increased palpitations (irregular heartbeat) and Calf discomfort Follow Up Care When: IN 2 WEEKS Test Results: Test results from this visit will be discussed in further detail at your follow- up appointment, if applicable. Discharge Plan Admission Admit Date/Time: 06/08/25 22:03 Primary Reason for Your Visit: Neuropathy Attending Provider: Paulie Majano Primary Care Provider: Jaycob Yang Consulting Providers: Diomedes Fitzpatrick Instructions Additional Instructions / Restrictions: Patient states he has follow-up appointment with neurologist in [place] through [facility]. Outpatient physical therapy recommended Discharge Orders/Prescriptions Prescriptions: New ibuprofen 600 mg tablet 600 mg PO Q8H PRN PRN (Reason: pain) Qty: 20 0RF Continued Fasenra 10 mg/0.5 mL syringe 30 mg subcut Q8W Rx Instructions: start week 16 of treatment Entyvio 300 mg recon soln 300 mg IV .COMPLEX Rx Instructions: 300 mg intravenously q 8 weeks; 300 mg intravenously; every 8 weeks polyethylene glycol 3350 [Miralax] 17 gram/dose powder 4 g PO ONCE fluticasone furoate-vilanterol [Breo Ellipta] 200-25 mcg/dose blister with device 1 inh inhalation DAILY ipratropium bromide 42 mcg (0.06 %) spray,non-aerosol 2 spray INTRANASAL TID PRN (Reason: allergy symptoms) albuterol sulfate 90 mcg/actuation aerosol powdr breath activated 2 inh inhalation Q4H PRN (Reason: shortness of breath) prednisone 1 mg tablet 4 mg PO DAILY dicyclomine 20 mg tablet 20 mg PO 4X/DAY famotidine [Acid Controller] 20 mg tablet 20 mg PO QHS esomeprazole magnesium 40 mg capsule,delayed release(DR/EC) 40 mg PO DAILY bisacodyl 5 mg tablet 5 mg PO QODAY Referrals / Follow Up: Jaycob Yang MD [Primary Care Provider] - Within 2 Weeks Clemente Chadwick MD [Non-Staff -Ordering Privileges] - Within 2 Weeks Disposition Disposition (needs filled in before D/C Order can be placed): Home, Self Care 06/10/25 1132Psaskia Majano MD CC: Dr. Jaycob Yang MD; Dr. Diomedes Fitzpatrick DO [facility]07-17-2025 [facility] Medical Records Department [address] [place] [address] Discharge Summary 06/10/25 1132 MR#: [id number] Acct: [id number] Name: LIBRADO GUILLEN Rep #: [id number] : 1945 79 From: Paulie Majano MD PCP: Dr. Jaycob Yang MD Status:ADM OVI Location: [place] [address] Providers Date of Admission: 06/08/25 Date of Discharge: 06/10/25 Primary Care Physician: Jaycob Yang MD Reason For Visit: BILATERAL FOOT PAIN WITH INABILITY TO AMBULATE Diagnosis Discharge Diagnosis (1) Bilateral foot pain: Status: Acute Code(s): M79.671 - Pain in right foot; M79.672 - Pain in left foot (2) Neuropathy: Status: Acute Code(s): G62.9 - Polyneuropathy, unspecified (3) Adverse drug reaction: Status: Acute Code(s): T50.905A - Adverse effect of unspecified drugs, medicaments and biological substances, initial encounter Qualifiers: Encounter type: initial encounter Qualified Code(s): T50.905A - Adverse effect of unspecified drugs, medicaments and biological substances, initial encounter (4) Generalized weakness: Status: Acute Code(s): R53.1 - Weakness (5) Ambulatory dysfunction: Status: Acute Code(s): R26.2 - Difficulty in walking, not elsewhere classified (6) Obesity (BMI 30-39.9): Status: Acute Code(s): E66.9 - Obesity, unspecified (7) History of Crohn's disease: Status: Acute Code(s): Z87.19 - Personal history of other diseases of the digestive system Plan B/L feet pain getting worse over past 3 weeks. Pain is harp, wose with weight bearing, follows Podiarist at [facility]. Numbness below knees for 3 weeks 1. Bilateral foot pain; presumably due to severe neuropathy (not from B-12 deficiency with level of 515 pg/mL present on admission) with patient recently started on gabapentin with subsequent side effect of dizziness confusion and disorientation suggestive of acute encephalopathy- Admit to general medical floor under observation status. Hold gabapentin. Start pregabalin 50 mg p.o. 3 times daily and titrate as needed to control symptoms. Pain control 06/10: Patient had walked with an physical therapy on the walker. He has suboptimal problem in equilibrium and balance. Recommended outpatient physical therapy. Patient is a [place] and discussed with the web content & social media manager. He declined home health referral. Patient stated he has appointment with neurologist through [place]. Advised to follow-up with him if not then he can follow- up with our neurologist, Dr. Chadwick 2. Generalized Weakness with Ambulatory Dysfunction attributable to #1 - PT/OT and Case Management consult patient also said he is feeling dizzy and not safe to go home today therefore advised PT and OT. His feet feel painful 3. Obesity (class II); with BMI of 35.9 this admission plus FABIANO; on CPAP adding to the burden of disease: Weight loss recommended maintain nocturnal CPAP as before. This complicates his case and may hamper recovery. 4. History of Crohn's disease; on benralizumab, vedolizumab and prednisone Resume home regimen to prevent acute flare. 5. GERD; on famotidine and esomeprazole - Resume H2-ambrosio and PPI. 6. Degenerative OA; on ibuprofen every 8 hours as needed at home-. DVT prophylaxis - Enoxaparin 40 mg subcu daily. Discharge medication reconciliation done. Discharge follow-up instructions completed. Discharge process discussed with the patient and all questions were answered to patient's satisfaction. Follow with PCP in 1 to 2 weeks Total time spent, exact 35 minutes on discharge meds reconciliation, examination, coordination of care with nurses and ancillary staff, review of imaging and blood test and discussion with the patient on follow-up instructions. Medications at Discharge Home Medications benralizumab 10 mg/0.5 mL subcutaneous syringe (Fasenra) 30 mg subcut Q8W 05/29/25 polyethylene glycol 3350 17 gram/dose oral powder (Miralax) 4 g PO ONCE 05/29/25 vedolizumab 300 mg intravenous solution (Entyvio) 300 mg IV .COMPLEX 05/29/25 albuterol sulfate 90 mcg/actuation breath activated powder inhaler 2 inh inhalation Q4H PRN shortness of breath 05/31/25 bisacodyl 5 mg tablet 5 mg PO QODAY 05/31/25 dicyclomine 20 mg tablet 20 mg PO 4X/DAY 05/31/25 esomeprazole magnesium 40 mg capsule,delayed release 40 mg PO DAILY 05/31/25 famotidine 20 mg tablet (Acid Controller) 20 mg PO QHS 05/31/25 ipratropium bromide 42 mcg (0.06 %) nasal spray 2 spray intranasal TID PRN allergy symptoms 05/31/25 prednisone 1 mg tablet 4 mg PO DAILY 05/31/25 fluticasone furoate 200 mcg-vilanterol 25 mcg/dose inhalation powder (Breo Ellipta) 1 inh inhalation DAILY 06/08/25 ibuprofen 600 mg tablet 600 mg PO Q8H PRN PRN pain #20 TABLETS 06/08/25 Physical Exam Narrative Seen and examined. Patient can walk with the walker. Has problem in turning around and balance. Patient still has still numbness in the right leg (more content not included)... [facility]07-16-2025 Progress note Author Paulie Majano [facility] Note Date/Time June 09, 2025 5:08 pm [facility] Medical Records Department [address] [place] [address] Progress Note - Hospitalist 06/09/25 0956 MR#: [id number] Acct: [id number] Name: LIBRADO GUILLEN Rep #:[id number] : 1945 79 From: Paulie Smith PCP: Dr. Jaycob Yang MD Status:ADM IN O Location: MS3 [id number] Reason for Visit Chief Complaint: Pain in Feet with Inability to Ambulate. Objective Data Objective Data Vital Signs: Vital Signs Temp Pulse Resp BP Pulse Ox O2 Del Method O2 Flow Rate 97.1 F L 69 18 118/68 98 Room Air 2 06/09/25 07:45 06/09/25 07:45 06/09/25 07:45 06/09/25 07:45 06/09/25 07:45 06/09/25 07:45 06/09/25 07:14 Oxygen Flow Rate (L/min) 2 Oxygen Delivery Method Room Air Weight: 245 lb 13.047 oz Body Mass Index (BMI) 35.2 Intake & Output: Intake and Output for Last 24 Hours 06/07/25 06/08/25 06/09/25 23:59 23:59 23:59 Intake Total 240 / 240 Balance 240 / 240 Lab / Micro Data 06/09/25 04:16 06/09/25 04:16 Labs: Laboratory Results - last 24 hr 06/08/25 18:44: WBC 10.0, RBC 4.14 L, Hgb 13.3, Hct 38.2 L, MCV 92.3, MCH 32.1 H, MCHC 34.8, RDW Std Deviation 45.4 H, RDW Coeff of Sandra 13.3, Plt Count 191, MPV9.2, Immature Gran % (Auto) 0.800, Neut % (Auto) 75.9 H, Lymph % (Auto) 14.7 L, [place] % (Auto) 8.2, Eos % (Auto) 0.0, Baso % (Auto) 0.4, Absolute Neuts (auto) 7.6, Absolute Lymphs (auto) 1.48, Nucleated RBC % 0, ESR 15, Sodium 140, Potassium 4.2, Chloride 107, Carbon Dioxide 21.9, Anion Gap 11, BUN 17, Creatinine 1.00, Estim Creat Clear Calc 78.09, Est GFR (MDRD) Non-Af 78, BUN/Creatinine Ratio 17.3, Glucose 90, Hemoglobin A1c 5.4, Calcium 9.2, Magnesium 2.2, Total Creatine Kinase 41, C- React Prot Ext Range < 3.00, Vitamin B12 515, TSH 1.690 06/08/25 20:26: Urine Color Yellow, Urine Clarity Clear, Urine pH 5.0, Ur Specific [place] 1.025, Urine Protein Negative, Urine Glucose (UA) Normal, UrineKetones 5 H, Urine Occult Blood Negative, Urine Nitrite Negative, Urine Bilirubin Negative, Urine Urobilinogen Normal, Ur Leukocyte Esterase Negative, Urine RBC 0 SEEN, Urine WBC 0 SEEN, Ur Squamous Epith Cells 0 SEEN, Urine Bacteria 0 SEEN, Urine Mucus 0 SEEN 06/09/25 04:16: WBC 8.2, RBC 3.80 L, Hgb 12.0 L, Hct 35.8 L, MCV 94.2 H, MCH 31.6, MCHC 33.5, RDW Std Deviation 46.1 H, RDW Coeff of Sandra 13.5, Plt Count 173,MPV 9.3, Immature Gran % (Auto) 1.000 H, Neut % (Auto) 66.4, Lymph % (Auto) 22.0, [place] % (Auto) 10.4 H, Eos % (Auto) 0.0, Baso % (Auto) 0.2, Absolute Neuts (auto) 5.5, Absolute Lymphs (auto) 1.80, Nucleated RBC % 0, Sodium 140, Potassium 3.9, Chloride 107, Carbon Dioxide 24.7, Anion Gap 8, BUN 18, Creatinine 1.04, Estim Creat Clear Calc 74.61, Est GFR (MDRD) Non-Af 74, BUN/Creatinine Ratio 17.3, Glucose 120 H, Calcium 8.7, Phosphorus 3.7, Total Bilirubin 0.35, AST 33, ALT 69 H, Alkaline Phosphatase 77, Total Protein 5.8 L, Albumin 3.4, Globulin 2.3, Albumin/Globulin Ratio 1.5, Triglycerides 125, Cholesterol 156, LDL Cholesterol, Calc 98, VLDL Cholesterol 25, HDL Cholesterol 33 L, Cholesterol/HDL Ratio 4.73, Serum Folate 9.88 Radiography Diagnostic Testing: Radiology Impression Foot X-Ray 06/08/25 18:50 IMPRESSION: No acute osseous abnormality of either foot. Moderate osteoarthritis bilaterally. Reading Location: [id number] Foot X-Ray 06/08/25 18:50 IMPRESSION: No acute osseous abnormality of either foot. Moderate osteoarthritis bilaterally. Reading Location: [id number] Physical Exam Narrative Seen and examined. Patient came because of right leg numbness, could not bear weight on his feet. He was also mildly confused dizzy and disoriented after taking gabapentin. Patient stated the past he had back pain but which is not bothering him. He is [place] and probably had EMG/NCV study about 20 years ago which she does not remember. Physical exam General: Alert, Oriented x3, Cooperative HEENT: Atraumatic, PERRLA, EOMI, Normocephalic. Oral: No Gingival or Mucosal Lesions/ Ulcerations Neck: Supple, No JVD, Negative Carotid Bruits Chest wall/Lungs: Air entry diminished in bilateral lung bases. No crepitation/rhonchi Cardiovascular: Regular rate and rhythm, Normal S1,S2, No M/G/R Abdomen: Bowel Sounds Present, Soft, Non Tender, Non-Distended : No dysuria. No renal angle tenderness. No suprapubic tenderness. Extremities: No edema, Capillary Refill Less than 3 Seconds Skin: No rashes, No breakdown Musculoskeletal: No Tenderness to Palpation of Joints or Extremities Neurological: Cranial nerves II-XII grossly intact, DTR 2+/4. Numbness in right foot. Psych/Mental Status: Normal Affect, Appropriate. Assessment & Plan Assessment/Plan (1) Bilateral foot pain: (2) Neuropathy: (3) Adverse drug reaction: QUALIFIERS: Encounter type: initial encounter Qualified Code(s): T50.905A - Adverse effect of unspecified drugs, medicaments and biological substances, initial encounter (4) Generalized weakness: (5) Ambulatory dysfunction: (6) Obesity (BMI 30-39.9): (7) History of Crohn's disease: PLAN: Plan B/L feet pain getting worse over past 3 weeks. Pain is harp, wose with weight bearing, follows Podiarist at [facility]. Numbness below knees for 3 weeks 1. Bilateral foot pain; presumably due to severe neuropathy (not from B-12 deficiency with level of 515 pg/mL present on admission) with patient recently started on gabapentin with subsequent side effect of dizziness confusion and disorientation suggestive of acute encephalopathy- Admit to general medical floor under observation status. Hold gabapentin. Start pregabalin 50 mg p.o. 3times daily and titrate as needed to control symptoms. Pain control 2. Generalized Weakness with Ambulatory Dysfunction attributable to #1 - PT/OT and Case Management consult patient also said he is feeling dizzy and not safe to go home today therefore advised PT and OT. His feet feel painful 3. Obesity (class II); with BMI of 35.9 this admission plus FABIANO; on CPAP addingto the burden of disease: Weight loss recommended maintain nocturnal CPAP as before. This complicates his case and may hamper recovery. 4. History of Crohn's disease; on benralizumab, vedolizumab and prednisone Resume home regimen to prevent acute flare. 5. GERD; on famotidine and esomeprazole - Resume H2-ambrosio and PPI. 6. Degenerative OA; on ibuprofen every 8 hours as needed at home-. DVT prophylaxis - Enoxaparin 40 mg subcu daily. Charges/Coding Visit Charges Inpatient E&M: 08553 Subs Hosp L2 06/09/25 3703 <Electronically signed by Paulie Majano MD> Cosigner Signature (if applicable): CC: ~ Signed [facility] Work Phone: [phone] 720-853707-16-2025 Progress note [facility] Medical Records Department [address] [place] [address] Progress Note - Hospitalist 06/09/25 0956 MR#: [id number] Acct: [id number] Name: LIBRADO GUILLEN Rep #:[id number] : 1945 79 From: Paulie Smith PCP: Dr. Jaycob Yang MD Status:ADM IN Location: MS3 [id number] Reason for Visit Chief Complaint: Pain in Feet with Inability to Ambulate. Objective Data Objective Data Vital Signs: Vital Signs Temp Pulse Resp BP Pulse Ox O2 Del Method O2 Flow Rate 97.1 F L 69 18 118/68 98 Room Air 2 06/09/25 07:45 06/09/25 07:45 06/09/25 07:45 06/09/25 07:45 06/09/25 07:45 06/09/25 07:45 06/09/25 07:14 Oxygen Flow Rate (L/min) 2 Oxygen Delivery Method Room Air Weight: 245 lb 13.047 oz Body Mass Index (BMI) 35.2 Intake & Output: Intake and Output for Last 24 Hours 06/07/25 06/08/25 06/09/25 23:59 23:59 23:59 Intake Total 240 / 240 Balance 240 / 240 Lab / Micro Data 06/09/25 04:16 06/09/25 04:16 Labs: Laboratory Results - last 24 hr 06/08/25 18:44: WBC 10.0, RBC 4.14 L, Hgb 13.3, Hct 38.2 L, MCV 92.3, MCH 32.1 H, MCHC 34.8, RDW Std Deviation 45.4 H, RDW Coeff of Sandra 13.3, Plt Count 191, MPV9.2, Immature Gran % (Auto) 0.800, Neut% (Auto) 75.9 H, Lymph % (Auto) 14.7 L, [place] % (Auto) 8.2, Eos % (Auto) 0.0, Baso % (Auto) 0.4, Absolute Neuts (auto) 7.6, Absolute Lymphs (auto) 1.48, Nucleated RBC % 0, ESR 15, Sodium 140, Potassium 4.2, Chloride 107, Carbon Dioxide 21.9, Anion Gap 11, BUN 17, Creatinine 1.00, Estim Creat Clear Calc 78.09, Est GFR (MDRD) Non-Af 78, BUN/Creatinine Ratio 17.3, Glucose 90, Hemoglobin A1c 5.4, Calcium 9.2, Magnesium 2.2, Total Creatine Kinase 41, C-React Prot Ext Range < 3.00, Vitamin B12 515,TSH 1.690 06/08/25 20:26: Urine Color Yellow, Urine Clarity Clear, Urine pH 5.0, Ur Specific [place] 1.025, Urine Protein Negative, Urine Glucose (UA) Normal, UrineKetones 5 H, Urine Occult Blood Negative, Urine Nitrite Negative, Urine Bilirubin Negative, Urine Urobilinogen Normal, Ur Leukocyte Esterase Negative, Urine RBC 0 SEEN, Urine WBC 0 SEEN, Ur Squamous Epith Cells 0 SEEN, Urine Bacteria 0 SEEN, Urine Mucus 0 SEEN 06/09/25 04:16: WBC 8.2, RBC 3.80 L, Hgb 12.0 L, Hct 35.8 L, MCV 94.2 H, MCH 31.6, MCHC 33.5, RDW Std Deviation 46.1 H, RDW Coeff of Sandra 13.5, Plt Count 173,MPV 9.3, Immature Gran % (Auto) 1.000 H, Neut % (Auto) 66.4, Lymph % (Auto) 22.0, [place] % (Auto) 10.4 H, Eos % (Auto) 0.0, Baso % (Auto) 0.2, Absolute Neuts (auto) 5.5, Absolute Lymphs (auto) 1.80, Nucleated RBC % 0, Sodium 140, Potassium 3.9, Chloride 107, Carbon Dioxide 24.7, Anion Gap 8, BUN 18, Creatinine 1.04,Estim Creat Clear Calc 74.61, Est GFR (MDRD) Non-Af 74, BUN/Creatinine Ratio 17.3, Glucose 120 H, Calcium 8.7, Phosphorus 3.7, Total Bilirubin 0.35, AST 33, ALT 69 H, Alkaline Phosphatase 77, Total Protein 5.8 L, Albumin 3.4, Globulin 2.3, Albumin/Globulin Ratio 1.5, Triglycerides 125, Cholesterol 156, LDL Cholesterol, Calc 98, VLDL Cholesterol 25, HDL Cholesterol 33 L, Cholesterol/HDL Ratio 4.73, Serum Folate 9.88 Radiography Diagnostic Testing: Radiology Impression Foot X-Ray 06/08/25 18:50 IMPRESSION: No acute osseous abnormality of either foot. Moderate osteoarthritis bilaterally. Reading Location: [facility] Foot X-Ray 06/08/25 18:50 IMPRESSION: No acute osseous abnormality of either foot. Moderate osteoarthritis bilaterally. Reading Location: [facility] Physical Exam Narrative Seen and examined. Patient came because of right leg numbness, could not bear weight on his feet. He was also mildly confused dizzy and disoriented after taking gabapentin. Patient stated the past he had back pain but which is not bothering him. He is [place] and probably had EMG/NCV study about 20 years ago which she does not remember. Physical exam General: Alert, Oriented x3, Cooperative HEENT: Atraumatic, PERRLA, EOMI, Normocephalic. Oral: No Gingival or Mucosal Lesions/ Ulcerations Neck: Supple, No JVD, Negative Carotid Bruits Chest wall/Lungs: Air entry diminished in bilateral lung bases. No crepitation/rhonchi Cardiovascular: Regular rate and rhythm, Normal S1,S2, No M/G/R Abdomen: Bowel Sounds Present, Soft, Non Tender, Non-Distended : No dysuria. No renal angle tenderness. No suprapubic tenderness. Extremities: No edema, Capillary Refill Less than 3 Seconds Skin: No rashes, No breakdown Musculoskeletal: No Tenderness to Palpation of Joints or Extremities Neurological: Cranial nerves II-XII grossly intact, DTR 2+/4. Numbness in right foot. Psych/Mental Status: Normal Affect, Appropriate. Assessment & Plan Assessment/Plan (1) Bilateral foot pain: (2) Neuropathy: (3) Adverse drug reaction: QUALIFIERS: Encounter type: initial encounter Qualified Code(s): T50.905A - Adverse effect of unspecified drugs, medicaments and biological substances, initial encounter (4) Generalized weakness: (5) Ambulatory dysfunction: (6) Obesity (BMI 30-39.9): (7) History of Crohn's disease: PLAN: Plan B/L feet pain getting worse over past 3 weeks. Pain is harp, wose with weight bearing, follows Podiarist at [facility]. Numbness below knees for 3 weeks 1. Bilateral foot pain; presumably due to severe neuropathy (not from B-12 deficiency with level of515 pg/mL present on admission) with patient recently started on gabapentin with subsequent side effect of dizziness confusion and disorientation suggestive of acute encephalopathy- Admit to general medical floor under observation status. Hold gabapentin. Start pregabalin 50 mg p.o. 3times daily and titrate as needed to control symptoms. Pain control 2. Generalized Weakness with Ambulatory Dysfunction attributable to #1 - PT/OT and Case Management consult patient also said he is feeling dizzy and not safe to go home today therefore advised PT andOT. His feet feel painful 3. Obesity (class II); with BMI of 35.9 this admission plus FABIANO; on CPAP addingto the burden of disease: Weight loss recommended maintain nocturnal CPAP as before. This complicates his case and may hamper recovery. 4. History of Crohn's disease; on benralizumab, vedolizumab and prednisone Resume home regimen to prevent acute flare. 5. GERD; on famotidine and esomeprazole - Resume H2-ambrosio and PPI. 6. Degenerative OA; on ibuprofen every 8 hours as needed at home-. DVT prophylaxis - Enoxaparin 40 mg subcu daily. Charges/Coding Visit Charges Inpatient E&M: 26381 Subs Hosp L2 06/09/25 1708 Cosigner Signature (if applicable): CC: ~ Signed [facility]07-16-2025 History and physical note Author Diomedes Mota [facility] Note Date/Time June 09, 2025 6:10 am [facility] Medical Records Department [address] [place] [address] H&P Exam - Hospitalist 06/08/252137 MR#: [id number] Acct: [id number] Name: LIBRADO GUILLEN Rep #:[id number] : 1945 79 From: Diomedes Gold DO PCP: Dr. Jaycob Yang MD Status:ADM IN O Location: [facility] [id number] HPI - General General Date of Admission: 06/08/25 Date of Service: 06/08/25 Chief Complaint: Pain in Feet with Inability to Ambulate. 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 due to Crohn's disease (with B-12 level of 515 pg/mLthis admission); with patient started on gabapentin earlier today, history of DVT, history of Zenker's diverticulum, history of esophageal obstruction due to food impaction, history of epiploic appendagitis, history of cholecystectomy,history of bronchial asthma; on as needed albuterol, BPH, history of IBS; of constipation-type; on polyethylene glycol, history of oral thrush; on fluconazole plus clotrimazole, GERD; on famotidine and esomeprazole and OA; on ibuprofen every 8 hours as needed who presents to [facility] ER complaining of pain in both of his feet with inability to ambulate. Mr. Guillen reports his symptoms began ~3 weeks prior to admission with the gradual-onset of progressively worsening bilateral foot pain that is made worse with weight-bearing and walking. He states the pain from his heels up through his arches and into his toes. He denies associated injury to his feet, recent trauma or similar previous episodes. He states he was recently evaluated by [facility], started on gabapentin for presumed neuropathic pain in his feet with patient was taking his first dose and then waking up feeling worsewith dizziness and disorientation in addition to ongoing unrelenting pain in hisfeet so he decided to come in for further evaluation and treatment. He was treated with ondansetron IV plus morphine IV in the ER with continued pain and feeling unsafe to go home with patient subsequently requesting admission to the ER physician with called and made to the hospitalist service. He underwent x-rays of both feet in the ER which were negative for acute fracture, dislocation or soft tissue swelling. He also had a CRP less than 3 and an ESR of 15 with noleukocytosis or obvious signs of infection. He admits to nausea and severe bilateral foot pain made worse with activity but not fully relieved by rest. Hedenies associated fever, chills, vomiting, diarrhea, constipation, abdominal pain, chest pain, palpitations, heart racing, shortness of breath, cough, headache or rash. In the ER he was diagnosed with severe Bilateral Foot Pain; presumably due to Severe Neuropathy with no signs of acute traumatic injury or infection but causing Generalized Weakness with Ambulatory Dysfunction and he was then admitted to the general medical floor under observation status for a stay that is expected to be less than 2 midnights. [facility] Medical History (Updated 06/09/25 @ 04:[address] Diomedes Fitzpatrick, ) Depression Former smoker CPAP (continuous positive airway pressure) dependence Zenkers diverticulum BPH (benign prostatic hyperplasia) History of DVT (deep vein thrombosis) GERD (gastroesophageal reflux disease) Former smoker Sleep apnea Chest pain Asthma IBS (irritable bowel syndrome) Crohn's disease Home Medications ?Medication ?Instructions ?Recorded ?Last Taken ?Type benralizumab 10 mg/0.5 mL 30 mg subcut Q8W 05/29/25 History subcutaneous syringe (Fasenra) polyethylene glycol 3350 17 4 g PO ONCE 05/29/2505/30 History gram/dose oral powder (Miralax) vedolizumab 300 mg intravenous mg .Route 05/29/25 06/08/19 History solution (Entyvio) albuterol sulfate 90 mcg/actuation 2 inh inhalation Q4 H PRN shortness 05/31/25 05/17/25 History breath activated powder inhaler of breath bisacodyl 5 mg tablet 5 mg PO QODAY 05/31/2505/30 History dicyclomine 20 mg tablet 20 mg PO 4X/DAY 05/31/2506/18 History esomeprazole magnesium 40 mg 40 mg PO DAILY 05/31/25 0 05/31/25 History capsule,delayed release famotidine 20 mg tablet (Acid 20 mg PO QHS 05/31/25 History Controller) ipratropium bromide 42 mcg (0.06 2 spray intranasal TI D PRN allergy 05/31/25 05/30/25 History %) nasal spray symptoms prednisone 1 mg tablet 4 mg PO DAILY 05/31/2505/30 History fluticasone furoate 200 1 inh inhalation DAILY 06/08 Unknown History mcg-vilanterol 25 mcg/dose inhalation powder (Breo Ellipta) ibuprofen 600 mg tablet 600 mg PO Q8H PRN PRN pain # 20 06/08/25 Unknown Rx TABLETS Allergy/AdvReac Type Severity Reaction Status Date / Time adalimumab (From Humira) Allergy itching Verified 06/08/25 17:43 Family History Mother CHF (congestive heart failure) Father Cancer unsure Surgical History History of colonoscopy (~06/2021) Hx of cholecystectomy Social History Smoking Status: Former smoker ROS ROS Narrative Review of Systems: Constitutional: Patient denies fever or chills. Eyes: Patient denies changes in vision or discharge from eyes. ENT: Patient denies runny nose, sore throat or ear pain. Resp: Patient denies shortness of breath or cough. CV: Patient denies chest pain, palpitations, heart racing or LE edema. GI: Patient admits to nausea but he denies vomiting, abdominal pain, diarrhea orconstipation. : Patient denies dysuria or hematuria. MSK: Patient admits to severe bilateral foot pain as per HPI. Skin: Patient denies rash, abscess, wounds or jaundice. Psych: Patient denies symptoms of uncontrolled depression or anxiety. Neuro: Patient admits to bilateral foot pain as per HPI but he denies headache or focal neurologic deficits. Allergy: Patient denies lip swelling, tongue swelling or urticaria. Hematology: Patient denies easy bleeding or easy bruisability. Endocrinology: Patient denies polyuria, polydipsia, polyphagia or heat/cold intolerance. 14 point ROS otherwise negative except for positives noted above in HPI. Vital Signs Vital Signs Vital Signs: 06/08/25 17:44 06/08/25 19:40 Temperature 98 F Temperature Source Oral Pulse Rate 78 78 Respiratory Rate 20 H Blood Pressure 135/81 H 119/68 Blood Pressure Mean 99 85 Pulse Ox 99 96 Oxygen Delivery Method Room Air Weight Weight: 250 lb 7.122 oz Body Mass Index (BMI) 35.9 Physical Exam Const alert and oriented x3 Constitutional Narrative: Obese with mild distress noted made worse with activity. General Appearance: cooperative HEENT normocephalic, head/scalp atraumatic, hearing grossly normal bilaterally and moist oral mucous membranes Eyes PERRL and EOMs intact bilaterally Neck no lymphadenopathy, supple and no JVD Resp normal respiratory effort, no retractions, no use of accessory muscles and clearto auscultation bilaterally Cardio regular rate and regular rhythm GI normal to inspection, nondistended, normoactive bowel sounds, soft to palpation,non-tender and non-distended GI Narrative: Obese. Extremity Extremity Narrative: Patient is complaining of bilateral foot pain with no signs of trauma, infectionor acute dislocation. Skin Skin Narrative: Patient has no evidence of rash, abscess, wounds or jaundice. Neuro oriented x3, CN's II-XII intact bilaterally, moves all extremities and no focal motor deficits Neuro Narrative: Patient is complaining of bilateral foot pain with no signs of trauma, infectionor acute dislocation. Sensorium / Orientation: awake, alert, oriented to person, oriented to place andoriented to time Speech: speech normal Psych affect normal Results Medical Records Data Attestation: I reviewed the patient's medical records Lab / Micro Data Attestation: I reviewed the patient's lab results. 06/08/25 18:44 06/08/25 18:44 Labs: Laboratory Results - last 24 hr 06/08/25 18:44: WBC 10.0, RBC 4.14 L, Hgb 13.3, Hct 38.2 L, MCV 92.3, MCH 32.1 H, MCHC 34.8, RDW Std Deviation 45.4 H, RDW Coeff of Sandra 13.3, Plt Count 191, MPV9.2, Immature Gran % (Auto) 0.800, Neut % (Auto) 75.9 H, Lymph % (Auto) 14.7 L, [place] % (Auto) 8.2, Eos % (Auto) 0.0, Baso % (Auto) 0.4, Absolute Neuts (auto) 7.6, Absolute Lymphs (auto) 1.48, Nucleated RBC % 0, ESR 15, Sodium 140, Potassium 4.2, Chloride 107, Carbon Dioxide 21.9, Anion Gap 11, BUN 17, Creatinine 1.00, Estim Creat Clear Calc 78.09, Est GFR (MDRD) Non-Af 78, BUN/Creatinine Ratio 17.3, Glucose 90, Calcium 9.2, C-React Prot Ext Range < 3.00 06/08/25 20:26: Urine Color Yellow, Urine Clarity Clear, Urine pH 5.0, Ur Specific [place] 1.025, Urine Protein Negative, Urine Glucose (UA) Normal, UrineKetones 5 H, Urine Occult Blood Negative, Urine Nitrite Negative, Urine Bilirubin Negative, Urine Urobilinogen Normal, Ur Leukocyte Esterase Negative, Urine RBC 0 SEEN, Urine WBC 0 SEEN, Ur Squamous Epith Cells 0 SEEN, Urine Bacteria 0 SEEN, Urine Mucus 0 SEEN Imaging Radiology Impression Foot X-Ray 06/08/25 18:50 IMPRESSION: No acute osseous abnormality of either foot. Moderate osteoarthritis bilaterally. Reading Location: [id number] Foot X-Ray 06/08/25 18:50 IMPRESSION: No acute osseous abnormality of either foot. Moderate osteoarthritis bilaterally. Reading Location: [id number] Assessment & Plan Assessment/Plan (1) Bilateral foot pain: (2) Neuropathy: (3) Adverse drug reaction: QUALIFIERS: Encounter type: initial encounter Qualified Code(s): T50.905A - Adverse effect of unspecified drugs, medicaments and biological substances, initial encounter (4) Generalized weakness: (5) Ambulatory dysfunction: (6) Obesity (BMI 30-39.9): (7) History of Crohn's disease: PLAN: Plan 1. Bilateral foot pain; presumably due to severe neuropathy (not from B-12 deficiency with level of 515 pg/mL present on admission) with patient recently started on gabapentin with subsequent Adverse Drug Reaction - Admit to general medical floor under observation status. Hold gabapentin in case of adverse drugreaction worsening his symptoms. Start pregabalin 50 mg p.o. 3 times daily and titrate as needed to control symptoms. Give acetaminophen as needed for inkc-oo-aanebbmi (level 1- 5/10) pain or fever. Give morphine IV as needed for severe (level 6-10/10) pain. 2. Generalized Weakness with Ambulatory Dysfunction attributable to #1 - PT/OT and Case Management consult and treat on rounds in a.m. as patient may likely require rehabilitation, with help appreciated advance. 3. Obesity (class II); with BMI of 35.9 this admission plus FABIANO; on CPAP addingto the burden of disease outlined #1 & #2 - Weight loss will be recommended. Check TSH. Maintain nocturnal CPAP as before. This complicates his case and may hamper recovery. 4. History of Crohn's disease; on benralizumab, vedolizumab and prednisone adding to the medical complexity of #1 - #3 - Resume home regimen to prevent acute flare. 5. History of DVT - Noted. Check D-dimer. 6. History of bronchial asthma; on as needed albuterol - Stable with no evidence of acute flare at this time. Continue as needed albuterol. 7. History of Zenker's diverticulum - Noted with no complaints related to this issue at this time. 8. History of esophageal obstruction due to food impaction - Noted. 9. History of epiploic appendagitis - Noted. 10. History of cholecystectomy - Noted. 11. BPH - Stable. 12. History of IBS; of constipation-type; on polyethylene glycol - Continue present therapy. 13. History of oral thrush; on fluconazole plus clotrimazole - Maintain currenttreatment. 14. GERD; on famotidine and esomeprazole - Resume H2-ambrosio and PPI. 15. OA; on ibuprofen every 8 hours as needed - We will follow pain regimen and scales outlined in #1. 16. DVT prophylaxis - Enoxaparin 40 mg subcu daily. Total time: Approximately (but not less than) 70 minutes. Charges/Coding Visit Charges OBSV E&M: 61103 Observ/hosp same date L2 06/09/25 0610 <Electronically signed by Diomedes Fitzpatrick DO> Cosigner Signature (if applicable): CC: Dr. Jaycob Yang MD; Dr. Diomedes Fitzpatrick DO~ Signed [facility] Work Phone: [phone] History and physical note [facility] Medical Records Department [address] [place] [id number] H&P Exam - Hospitalist 06/08/252137 MR#: [id number] Acct: [id number] Name: LIBRADO GUILLEN Rep #:[id number] : 1945 79 From: Diomedes Gold DO PCP: Dr. Jaycob Yang MD Status:ADM IN O Location: [id number] [id number] HPI - General General Date of Admission: 06/08/25 Date of Service: 06/08/25 Chief Complaint: Pain in Feet with Inability to Ambulate. 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 (with B-12 level of 515 pg/mLthis admission); with patient started on gabapentin earlier today, history of DVT, history of Zenker's diverticulum, history of esophageal obstruction due to food impaction, history of epiploic appendagitis, history of cholecystectomy,history of bronchial asthma; on as needed albuterol, BPH, history of IBS; of constipation-type; on polyethylene glycol, history of oral thrush; on fluconazole plus clotrimazole, GERD;on famotidine and esomeprazole and OA; on ibuprofen every 8 hours as needed who presents to [facility] ER complaining of pain in both of his feet with inability to ambulate. Mr. Guillen reports his symptoms began ~3 weeks prior to admission with the gradual-onset of progressively worsening bilateral foot pain that is made worse with weight-bearing and walking. He states the pain from his heels up through his arches and into his toes. He denies associated injury to his feet, recent trauma or similar previous episodes. He states he was [facility], started on gabapentin for presumed neuropathic pain in his feet with patient was taking his first dose and then waking up feeling worsewith dizziness and disorientation in addition to ongoing unrelenting pain in hisfeet so he decided to come in for further evaluation and treatment. He was treated with ondansetron IV plus morphine IV in the ER with continued pain and feeling unsafe togo home with patient subsequently requesting admission to the ER physician with called and made to the hospitalist service. He underwent x- rays of both feet in the ER which were negative for acute fracture, dislocation or soft tissue swelling. He also had a CRP less than 3 and an ESR of 15 with noleukocytosis or obvious signs of infection. He admits to nausea and severe bilateral foot pain made worse with activity but not fully relieved by rest. Hedenies associated fever, chills, vomiting, diarrhea, constipation, abdominal pain, chest pain, palpitations, heart racing, shortness of breath, cough, headache or rash. In the ER he was diagnosed with severe Bilateral Foot Pain; presumably due to Severe Neuropathy with no signs of acute traumatic injury or infection but causing Generalized Weakness with Ambulatory Dysfunction and he was then admitted to the general medical floor under observation status for a stay that is expected to be less than 2 midnights. [facility] Medical History (Updated 06/09/25 @ 04:[address] Diomedes Fitzpatrick, DO) Depression Former smoker CPAP (continuous positive airway pressure) dependence Zenkers diverticulum BPH (benign prostatic hyperplasia) History of DVT (deep vein thrombosis) GERD (gastroesophageal reflux disease) Former smoker Sleep apnea Chest pain Asthma IBS (irritable bowel syndrome) Crohn's disease Home Medications ?Medication ?Instructions ?Recorded ?Last Taken ?Type benralizumab 10 mg/0.5 mL 30 mg subcut Q8W 05/29/25 History subcutaneous syringe (Fasenra) polyethylene glycol 3350 17 4 g PO ONCE 05/29/2505/30 History gram/dose oral powder (Miralax) vedolizumab 300 mg intravenous mg .Route 05/29/2508/19 History solution (Entyvio) albuterol sulfate 90 mcg/actuation 2 inh inhalation Q4 H PRN shortness 05/31/25 05/17/25 History breath activated powder inhaler of breath bisacodyl 5 mg tablet 5 mg PO QODAY 05/31/2505/30 History dicyclomine 20 mg tablet 20 mg PO 4X/DAY 05/31/2506/18 History esomeprazole magnesium 40 mg 40 mg PO DAILY 05/31/25 0 05/31/25 History capsule,delayed release famotidine 20 mg tablet (Acid 20 mg PO QHS 05/31/25 History Controller) ipratropium bromide 42 mcg (0.06 2 spray intranasal TI D PRN allergy 05/31/25 05/30/25 History %) nasal spray symptoms prednisone 1 mg tablet 4 mg PO DAILY 05/31/2505/30 History fluticasone furoate 200 1 inh inhalation DAILY 06/08 Unknown History mcg-vilanterol 25 mcg/dose inhalation powder (Breo Ellipta) ibuprofen 600 mg tablet 600 mg PO Q8H PRN PRN pain # 20 06/08/25 Unknown Rx TABLETS Allergy/AdvReac Type Severity Reaction Status Date / Time adalimumab (From Humira) Allergy itching Verified 06/08/25 17:43 Family History Mother CHF (congestive heart failure) Father Cancer unsure Surgical History History of colonoscopy (~06/2021) Hx of cholecystectomy Social History Smoking Status: Former smoker ROS ROS Narrative Review of Systems: Constitutional: Patient denies fever or chills. Eyes: Patient denies changes in vision or discharge from eyes. ENT: Patient denies runny nose, sore throat or ear pain. Resp: Patient denies shortness of breath or cough. CV: Patient denies chest pain, palpitations, heart racing or LE edema. GI: Patient admits to nausea but he denies vomiting, abdominal pain, diarrhea orconstipation. : Patient denies dysuria or hematuria. MSK: Patient admits to severe bilateral foot pain as per HPI. Skin: Patient denies rash, abscess, wounds or jaundice. Psych: Patient denies symptoms of uncontrolled depression or anxiety. Neuro: Patient admits to bilateral foot pain as per HPI but he denies headache or focal neurologic deficits. Allergy: Patient denies lip swelling, tongue swelling or urticaria. Hematology: Patient denies easy bleeding or easy bruisability. Endocrinology: Patient denies polyuria, polydipsia, polyphagia or heat/cold intolerance. 14 point ROS otherwise negative except for positives noted above in HPI. Vital Signs Vital Signs Vital Signs: 06/08/25 17:44 06/08/25 19:40 Temperature 98 F Temperature Source Oral Pulse Rate 78 78 Respiratory Rate 20 H Blood Pressure 135/81 H 119/68 Blood Pressure Mean 99 85 Pulse Ox 99 96 Oxygen Delivery Method Room Air Weight Weight: 250 lb 7.122 oz Body Mass Index (BMI) 35.9 Physical Exam Const alert and oriented x3 Constitutional Narrative: Obese with mild distress noted made worse with activity. General Appearance: cooperative HEENT normocephalic, head/scalp atraumatic, hearing grossly normal bilaterally and moist oral mucous membranes Eyes PERRL and EOMs intact bilaterally Neck no lymphadenopathy, supple and no JVD Resp normal respiratory effort, no retractions, no use of accessory muscles and clearto auscultation bilaterally Cardio regular rate and regular rhythm GI normal to inspection, nondistended, normoactive bowel sounds, soft to palpation,non-tender and non-distended GI Narrative: Obese. Extremity Extremity Narrative: Patient is complaining of bilateral foot pain with no signs of trauma, infectionor acute dislocation. Skin Skin Narrative: Patient has no evidence of rash, abscess, wounds or jaundice. Neuro oriented x3, CN's II-XII intact bilaterally, moves all extremities and no focal motor deficits Neuro Narrative: Patient is complaining of bilateral foot pain with no signs of trauma, infectionor acute dislocation. Sensorium / Orientation: awake, alert, oriented to person, oriented to place andoriented to time Speech: speech normal Psych affect normal Results Medical Records Data Attestation: I reviewed the patient's medical records Lab / Micro Data Attestation: I reviewed the patient's lab results. 06/08/25 18:44 06/08/25 18:44 Labs: Laboratory Results - last 24 hr 06/08/25 18:44: WBC 10.0, RBC 4.14 L, Hgb 13.3, Hct 38.2 L, MCV 92.3, MCH 32.1 H, MCHC 34.8, RDW Std Deviation 45.4 H, RDW Coeff of Sandra 13.3, Plt Count 191, MPV9.2, Immature Gran % (Auto) 0.800, Neut% (Auto) 75.9 H, Lymph % (Auto) 14.7 L, [place] % (Auto) 8.2, Eos % (Auto) 0.0, Baso % (Auto) 0.4, Absolute Neuts (auto) 7.6, Absolute Lymphs (auto) 1.48, Nucleated RBC % 0, ESR 15, Sodium 140, Potassium 4.2, Chloride 107, Carbon Dioxide 21.9, Anion Gap 11, BUN 17, Creatinine 1.00, Estim Creat Clear Calc 78.09, Est GFR (MDRD) Non-Af 78, BUN/Creatinine Ratio 17.3, Glucose 90, Calcium 9.2, C-React Prot Ext Range < 3.00 06/08/25 20:26: Urine Color Yellow, Urine Clarity Clear, Urine pH 5.0, Ur Specific [place] 1.025, Urine Protein Negative, Urine Glucose (UA) Normal, UrineKetones 5 H, Urine Occult Blood Negative, Urine Nitrite Negative, Urine Bilirubin Negative, Urine Urobilinogen Normal, Ur Leukocyte Esterase Negative, Urine RBC 0 SEEN, Urine WBC 0 SEEN, Ur Squamous Epith Cells 0 SEEN, Urine Bacteria 0 SEEN, Urine Mucus 0 SEEN Imaging Radiology Impression Foot X-Ray 06/08/25 18:50 IMPRESSION: No acute osseous abnormality of either foot. Moderate osteoarthritis bilaterally. Reading Location: [id number] Foot X-Ray 06/08/25 18:50 IMPRESSION: No acute osseous abnormality of either foot. Moderate osteoarthritis bilaterally. Reading Location: [facility] Assessment & Plan Assessment/Plan (1) Bilateral foot pain: (2) Neuropathy: (3) Adverse drug reaction: QUALIFIERS: Encounter type: initial encounter Qualified Code(s): T50.905A - Adverse effect of unspecified drugs, medicaments and biological substances, initial encounter (4) Generalized weakness: (5) Ambulatory dysfunction: (6) Obesity (BMI 30-39.9): (7) History of Crohn's disease: PLAN: Plan 1. Bilateral foot pain; presumably due to severe neuropathy (not from B-12 deficiency with level of515 pg/mL present on admission) with patient recently started on gabapentin with subsequent AdverseDrug Reaction - Admit to general medical floor under observation status. Hold gabapentin in case ofadverse drugreaction worsening his symptoms. Start pregabalin 50 mg p.o. 3 times daily and titrate as needed to control symptoms. Give acetaminophen as needed for [id number] (level 1-5/10) painor fever. Give morphine IV as needed for severe (level 6-10/10) pain. 2. Generalized Weakness with Ambulatory Dysfunction attributable to #1 - PT/OT and Case Management consult and treat on rounds in a.m. as patient may likely require rehabilitation, with help appreciated advance. 3. Obesity (class II); with BMI of 35.9 this admission plus FABIANO; on CPAP addingto the burden of disease outlined #1 & #2 - Weight loss will be recommended. Check TSH. Maintain nocturnal CPAP as before. This complicates his case and may hamper recovery. 4. History of Crohn's disease; on benralizumab, vedolizumab and prednisone adding to the medical complexity of #1 - #3 - Resume home regimen to prevent acute flare. 5. History of DVT - Noted. Check D-dimer. 6. History of bronchial asthma; on as needed albuterol - Stable with no evidence of acute flare at this time. Continue as needed albuterol. 7. History of Zenker's diverticulum - Noted with no complaints related to this issue at this time. 8. History of esophageal obstruction due to food impaction - Noted. 9. History of epiploic appendagitis - Noted. 10. History of cholecystectomy - Noted. 11. BPH - Stable. 12. History of IBS; of constipation-type; on polyethylene glycol - Continue present therapy. 13. History of oral thrush; on fluconazole plus clotrimazole - Maintain currenttreatment. 14. GERD; on famotidine and esomeprazole - Resume H2-ambrosio and PPI. 15. OA; on ibuprofen every 8 hours as needed - We will follow pain regimen and scales outlined in #1. 16. DVT prophylaxis - Enoxaparin 40 mg subcu daily. Total time: Approximately (but not less than) 70 minutes. Charges/Coding Visit Charges OBSV E&M: 39014 Observ/hosp same date L2 06/09/25 0610 Cosigner Signature (if applicable): CC: Dr. Jaycob Yang MD; Dr. Diomedes Fitzpatrick DO~ Signed [facility]07-16-2025 Discharge summary Author Barrington Sanchez [facility] Note Date/Time June 08, 2025 10:2 8pm [facility] Medical Records Department [address] [place] [address] Emergency Department Summary 06/08/25 MR#: [id number] Acct: [id number] Name: LIBRADO GUILLEN Rep #:[id number] : 1945 79 From: Barrington Corona PCP: Dr. Jaycob Yang MD Status:ADM IN O Location: [place] [id number] HPI History of Present Illness HPI Narrative: Patient presents with bilateral foot pain that has been getting worse over the past 3 weeks. Patient states it is gradually getting worse. Patient states hisfeet feel like they are . Patient describes the pain as sharp. Patient states it is worse with weightbearing. 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 Patient states he was started on gabapentin. Patient states he took 1 dose of that. Patient states he went home and took a nap. Patient states that when he woke up he felt disoriented and weak. Patient denies any trauma or injury. Chief Complaint: Lower Extremity Injury Onset/Context/Timing Onset: Weeks (3) Context: Gradual Onset Quality of Pain: Sharp Location: Bilateral feet Worsened by: Nothing Relieved by: Nothing Associated Symptoms Associated Symptoms: Positive for Parasthesia; Negative for Weakness or Loss of Funtion PFSH [facility] Medical History Zenkers diverticulum BPH (benign prostatic hyperplasia) History of DVT (deep vein thrombosis) GERD (gastroesophageal reflux disease) Former smoker Sleep apnea Chest pain Asthma IBS (irritable bowel syndrome) Crohn's disease Home Medications ?Medication ?Instructions ?Recorded ?Last Taken ?Type benralizumab 10 mg/0.5 mL 30 mg subcut Q8W 05/29/25 History subcutaneous syringe (Fasenra) polyethylene glycol 3350 17 4 g PO [...] tablet 4 mg PO DAILY 05/31/2505/30 History ibuprofen 600 mg tablet 600 mg PO Q8H PRN PRN pain # 20 06/08/25 Unknown Rx TABLETS Allergy/AdvReac Type Severity Reaction Status Date / Time adalimumab (From Humira) Allergy itching Verified 06/08/25 17:43 Family History Mother CHF (congestive heart failure) Father Cancer unsure Surgical History History of colonoscopy (~06/2021) Hx of cholecystectomy Social History Smoking Status: Former smoker ROS ROS ED Constitutional Constitutional ED: Denies chills or fever(s) Eyes Eyes: Reports blurry vision; Denies diplopia ENT ENT ED: Denies rhinorrhea or sore throat Cardiovascular Cardiovascular: Denies chest pain or palpitations Respiratory/Chest Respiratory/Chest: Denies cough or dyspnea Gastrointestinal Gastrointestinal: Denies nausea or vomiting Genitourinary Genitourinary ED: Denies dysuria or hematuria Musculoskeletal Musculoskeletal: Denies back pain or neck pain Integumentary Denies abscess or rash Neurologic Neurologic: Reports headache(s); Denies weakness Allergic/Immunologic Allergic/Immunologic ED: Denies mouth swelling or urticaria EXAM Physical Exam Const Vital Signs: 06/08/25 17:44 06/08/25 19:40 06/08/25 21:00 Temperature 98 F Temperature Source Oral Pulse Rate 78 78 70 Respiratory Rate 20 H 18 Blood Pressure 135/81 H 119/68 138/70 H Blood Pressure Mean 99 85 92 Pulse Ox 99 96 98 Oxygen Delivery Method Room Air 06/08/25 21:38 Temperature 98.6 F Temperature Source Pulse Rate 70 Respiratory Rate 18 Blood Pressure 138/70 H Blood Pressure Mean 92 Pulse Ox 98 Oxygen Delivery Method Positive well nourished and well developed General Appearance ED: well developed and NAD HEENT Reports moist mucous membranes Neck full ROM and supple Resp normal respiratory effort and clear to auscultation bilaterally Cardio regular rate and regular rhythm GI non-tender and non-distended Palpation: soft Extremity Extremity Narrative: There is mild tenderness and edema of the bilateral feet. There is no erythema or warmth. There is no discharge or drainage. There is good range of motion ofthe feet. Sensation was intact to light touch in all digits. Capillary refill was less than 2 seconds in all digits. Pedal pulses are equal bilaterally. General Extremety ED: Yes weight-bearing difficulty General Extremity: weight-bearing difficulty Neuro oriented x3, CN's II-XII intact bilaterally, moves all extremities and no sensory deficits noted Sensorium / Orientation: alert Motor Exam: strength 5/5 throughout Skin no wounds MDM MDM MDM Narrative Medical decision making narrative: Differential diagnosis includes arthritis, neuropathy, electrolyte abnormality, fracture, and tendinitis. X-rays of the bilateral foot will be obtained to assess for fracture and degenerative arthritis. CBC will be obtained to assess for leukocytosis and anemia. Basic metabolic profile will be obtained to assessfor electrolyte abnormality renal function. Sed rate and CRP will be obtained to assess for acute phase reactants. Lab Data Attestation: I reviewed the patient's lab results. Lab results narrative: CBC was reviewed and was within normal. Basic metabolic profile was reviewed and was within normal limits. C-reactive protein was reviewed and was less than3.0. Sed rate was reviewed and was normal at 15. Urinalysis was reviewed. There is no evidence of urinary tract infection or hematuria. Labs: Laboratory Results - last 24 hr 06/08/25 06/08/25 18:44 20:26 WBC 10.0 RBC 4.14 L Hgb 13.3 Hct 38.2 L MCV 92.3 MCH 32.1 H MCHC 34.8 RDW Std Deviation 45.4 H RDW Coeff of Sandra 13.3 Plt Count 191 MPV 9.2 Immature Gran % (Auto) 0.800 Neut % (Auto) 75.9 H Lymph % (Auto) 14.7 L [place] % (Auto) 8.2 Eos % (Auto) 0.0 Baso % (Auto) 0.4 Absolute Neuts (auto) 7.6 Absolute Lymphs (auto) 1.48 Nucleated RBC % 0 ESR 15 Sodium 140 Potassium 4.2 Chloride 107 Carbon Dioxide 21.9 Anion Gap 11 BUN 17 Creatinine 1.00 Estim Creat Clear Calc 78.09 Est GFR (MDRD) Non-Af 78 BUN/Creatinine Ratio 17.3 Glucose 90 Calcium 9.2 C-React Prot Ext Range < 3.00 Urine Color Yellow Urine Clarity Clear Urine pH 5.0 Ur Specific [place] 1.025 Urine Protein Negative Urine Glucose (UA) Normal Urine Ketones 5 H Urine Occult Blood Negative Urine Nitrite Negative Urine Bilirubin Negative Urine Urobilinogen Normal Ur Leukocyte Esterase Negative Urine RBC 0 SEEN Urine WBC 0 SEEN Ur Squamous Epith Cells 0 SEEN Urine Bacteria 0 SEEN Urine Mucus 0 SEEN Radiography Diagnostic Testing: Clinical Impression(s) from Imaging Studies Foot X-Ray 06/08/25 18:50 IMPRESSION: No acute osseous abnormality of either foot. Moderate osteoarthritis bilaterally. Reading Location: [facility] Foot X-Ray 06/08/25 18:50 IMPRESSION: No acute osseous abnormality of either foot. Moderate osteoarthritis bilaterally. Reading Location: [id number] X-rays of the left foot were obtained. There are 3 views. On my independent interpretation, there is no acute fracture. There is no dislocation. There is no soft tissue swelling. Radiologist also interpreted the x-rays and agrees. X-rays of the right foot were obtained. There are 3 views. On my independent interpretation, there is no acute fracture. There is no dislocation. There is no soft tissue swelling. Radiologist also interpreted the x-rays and agrees. Treatment and Re-Evaluation Narrative: Patient was given a dose of morphine and Zofran here. Patient was advised of his findings. Patient was instructed to ice and elevate his feet. Patient was given a prescription for a short course of ibuprofen. Patient was instructed tofollow-up with his primary care physician in 5 to 7 days. Patient was instructed to return if worse in any way. Patient understood and was agreeable with the plan. All questions were answered. Prior to discharge, the patient felt that he was unsafe to take care of himself at home. Patient was able to ambulate but states his feet were very painful when he ambulated. Patient is concerned that he may fall at home. Case was discussed with the hospitalist. He will admit the patient for observation. Patient understood and was agreeable with the plan. All questions were answered. Discharge Plan Dx/Rx/DC Orders Clinical Impression: Adult failure to thrive, Bilateral foot pain, Elevated blood pressure reading Disposition Disposition: [facility] What to do if you have Problems For any increased pain, shortness of breath, bleeding, nausea or vomiting, chestpain, or any unexpected problems, contact your Primary Care Provider. Call [facility] ([phone]) or report to the closest Emergency Room. Call 911 if necessary. 06/08/258 <Electronically signed by Barrington Schwiger DO> Cosigner Signature (if applicable): CC: Dr. Jaycob Yang MD ~ Signed [facility] Work Phone: 1(247) 882-292707-15-2025 Discharge summary [facility] Medical Records Department [address] [place] [address] Emergency Department Summary 06/08/25 MR#: [id number] Acct: [id number] Name: LIBRADO GUILLEN Rep #:[id number] : 1945 79 From: Barrington Corona PCP: Dr. Jaycob Yang MD Status:ADM IN O Location: MS3 SF371-5 HPI History of Present Illness HPI Narrative: Patient presents with bilateral foot pain that has been getting worse over the past 3 weeks. Patient states it is gradually getting worse. Patient states hisfeet feel like they are . Patient describes the pain as sharp. Patient states it is worse with weightbearing. Patient saw [place]ristat the [place] in [place] today. Patient states he was started on gabapentin. Patient states he took 1 dose of that. Patient states he went home and took a nap. Patient states that when he woke up he felt disoriented and weak. Patient denies any trauma or injury. Chief Complaint: Lower Extremity Injury Onset/Context/Timing Onset: Weeks (3) Context: Gradual Onset Quality of Pain: Sharp Location: Bilateral feet Worsened by: Nothing Relieved by: Nothing Associated Symptoms Associated Symptoms: Positive for Parasthesia; Negative for Weakness or Loss of Funtion [facility] Medical History Zenkers diverticulum BPH (benign prostatic hyperplasia) History of DVT (deep vein thrombosis) GERD (gastroesophageal reflux disease) Former smoker Sleep apnea Chest pain Asthma IBS (irritable bowel syndrome) Crohn's disease Home Medications ?Medication ?Instructions ?Recorded ?Last Taken ?Type benralizumab 10 mg/0.5 mL 30 mg subcut Q8W 05/29/25 History subcutaneous syringe (Fasenra) polyethylene glycol 3350 17 4 g PO [...] tablet 4 mg PO DAILY 05/31/2505/30 History ibuprofen 600 mg tablet 600 mg PO Q8H PRN PRN pain # 20 06/08/25 Unknown Rx TABLETS Allergy/AdvReac Type Severity Reaction Status Date / Time adalimumab (From Humira) Allergy itching Verified 06/08/25 17:43 Family History Mother CHF (congestive heart failure) Father Cancer unsure Surgical History History of colonoscopy (~06/2021) Hx of cholecystectomy Social History Smoking Status: Former smoker ROS ROS ED Constitutional Constitutional ED: Denies chills or fever(s) Eyes Eyes: Reports blurry vision; Denies diplopia ENT ENT ED: Denies rhinorrhea or sore throat Cardiovascular Cardiovascular: Denies chest pain or palpitations Respiratory/Chest Respiratory/Chest: Denies cough or dyspnea Gastrointestinal Gastrointestinal: Denies nausea or vomiting Genitourinary Genitourinary ED: Denies dysuria or hematuria Musculoskeletal Musculoskeletal: Denies back pain or neck pain Integumentary Denies abscess or rash Neurologic Neurologic: Reports headache(s); Denies weakness Allergic/Immunologic Allergic/Immunologic ED: Denies mouth swelling or urticaria EXAM Physical Exam Const Vital Signs: 06/08/25 17:44 06/08/25 19:40 06/08/25 21:00 Temperature 98 F Temperature Source Oral Pulse Rate 78 78 70 Respiratory Rate 20 H 18 Blood Pressure 135/81 H 119/68 138/70 H Blood Pressure Mean 99 85 92 Pulse Ox 99 96 98 Oxygen Delivery Method Room Air 06/08/25 21:38 Temperature 98.6 F Temperature Source Pulse Rate 70 Respiratory Rate 18 Blood Pressure 138/70 H Blood Pressure Mean 92 Pulse Ox 98 Oxygen Delivery Method Positive well nourished and well developed General Appearance ED: well developed and NAD HEENT Reports moist mucous membranes Neck full ROM and supple Resp normal respiratory effort and clear to auscultation bilaterally Cardio regular rate and regular rhythm GI non-tender and non-distended Palpation: soft Extremity Extremity Narrative: There is mild tenderness and edema of the bilateral feet. There is no erythema or warmth. There is no discharge or drainage. There is good range of motion ofthe feet. Sensation was intact to light touch in all digits. Capillary refill was less than 2 seconds in all digits. Pedal pulses are equal bilaterally. General Extremety ED: Yes weight-bearing difficulty General Extremity: weight-bearing difficulty Neuro oriented x3, CN's II-XII intact bilaterally, moves all extremities and no sensory deficits noted Sensorium / Orientation: alert Motor Exam: strength 5/5 throughout Skin no wounds MDM MDM MDM Narrative Medical decision making narrative: Differential diagnosis includes arthritis, neuropathy, electrolyte abnormality, fracture, and tendinitis. X-rays of the bilateral foot will be obtained to assess for fracture and degenerative arthritis. CBC will be obtained to assess for leukocytosis and anemia. Basic metabolic profile will be obtained to assessfor electrolyte abnormality renal function. Sed rate and CRP will be obtained to assess for acute phase reactants. Lab Data Attestation: I reviewed the patient's lab results. Lab results narrative: CBC was reviewed and was within normal. Basic metabolic profile was reviewed and was within normal limits. C-reactive protein was reviewed and was less than3.0. Sed rate was reviewed and was normal at 15. Urinalysis was reviewed. There is no evidence of urinary tract infection or hematuria. Labs: Laboratory Results - last 24 hr 06/08/25 06/08/25 18:44 20:26 WBC 10.0 RBC 4.14 L Hgb 13.3 Hct 38.2 L MCV 92.3 MCH 32.1 H MCHC 34.8 RDW Std Deviation 45.4 H RDW Coeff of Sandra 13.3 Plt Count 191 MPV 9.2 Immature Gran % (Auto) 0.800 Neut % (Auto) 75.9 H Lymph % (Auto) 14.7 L [place] % (Auto) 8.2 Eos % (Auto) 0.0 Baso % (Auto) 0.4 Absolute Neuts (auto) 7.6 Absolute Lymphs (auto) 1.48 Nucleated RBC % 0 ESR 15 Sodium 140 Potassium 4.2 Chloride 107 Carbon Dioxide 21.9 Anion Gap 11 BUN 17 Creatinine 1.00 Estim Creat Clear Calc 78.09 Est GFR (MDRD) Non-Af 78 BUN/Creatinine Ratio 17.3 Glucose 90 Calcium 9.2 C-React Prot Ext Range < 3.00 Urine Color Yellow Urine Clarity Clear Urine pH 5.0 Ur Specific [place] 1.025 Urine Protein Negative Urine Glucose (UA) Normal Urine Ketones 5 H Urine Occult Blood Negative Urine Nitrite Negative Urine Bilirubin Negative Urine Urobilinogen Normal Ur Leukocyte Esterase Negative Urine RBC 0 SEEN Urine WBC 0 SEEN Ur Squamous Epith Cells 0 SEEN Urine Bacteria 0 SEEN Urine Mucus 0 SEEN Radiography Diagnostic Testing: Clinical Impression(s) from Imaging Studies Foot X-Ray 06/08/25 18:50 IMPRESSION: No acute osseous abnormality of either foot. Moderate osteoarthritis bilaterally. Reading Location: [id number] Foot X-Ray 06/08/25 18:50 IMPRESSION: No acute osseous abnormality of either foot. Moderate osteoarthritis bilaterally. Reading Location: [id number] X-rays of the left foot were obtained. There are 3 views. On my independent interpretation, there is no acute fracture. There is no dislocation. There is no soft tissue swelling. Radiologist also interpreted the x-rays and agrees. X-rays of the right foot were obtained. There are 3 views. On my independent interpretation, there is no acute fracture. There is no dislocation. There is no soft tissue swelling. Radiologist also interpreted the x-rays and agrees. Treatment and Re-Evaluation Narrative: Patient was given a dose of morphine and Zofran here. Patient was advised of his findings. Patient was instructed to ice and elevate his feet. Patient was given a prescription for a short course of ibuprofen. Patient was instructed tofollow- up with his primary care physician in 5 to 7 days. Patientwas instructed to return if worse in any way. Patient understood and was agreeable with the plan. All questions were answered. Prior to discharge, the patient felt that he was unsafe to take care of himself at home. Patient was able to ambulate but states his feet were very painful when he ambulated. Patient is concerned that he may fall at home. Case was discussed with the hospitalist. He will admit the patient for observation. Patient understood and was agreeable with the plan. All questions were answered. Discharge Plan Dx/Rx/DC Orders Clinical Impression: Adult failure to thrive, Bilateral foot pain, Elevated blood pressure reading Disposition Disposition: Acute Care Hospital [facility] What to do if you have Problems For any increased pain, shortness of breath, bleeding, nausea or vomiting, chestpain, or any unexpected problems, contact your Primary Care Provider. Call [facility] ([phone]) or report tothe closest Emergency Room. Call 911 if necessary. 06/08/252227 Cosigner Signature (if applicable): CC: Dr. Jaycob Yang MD ~ Signed [facility]07-15-2025 Radiology Diagnostic study note [facility] Imaging Services [address], [place] [address] Foot min 3 Views MR#: [id number] Acct: [id number] Name: LIBRADO GUILLEN Rep #: [id number] : 1945 M 79 From: Sharmin Rooney MD PCP: Dr. Jaycob Yang MD Status: REG ER Study:Foot min 3 Views Date of Exam: Exam# [id number] Ordering Dr: Barrington Sanchez DO PROCEDURE: FOOT [...] either foot. Moderate osteoarthritis bilaterally. Reading Location: [id number] CC: Dr. Jaycob Yang MD; Dr. Barrington Sanchez DO ~ Research Soil Scientist: Signed [facility]07-15-2025 Radiology Diagnostic study note [facility] Imaging Services [address] [place], [place] [address] Foot min 3 Views MR#: [id number] Acct: [id number] Name: LIBRADO GUILLEN Rep #: [id number] : 1945 M 79 From: Sharmin Rooney MD PCP: Dr. Jaycob Yang MD Status: REG ER Study:Foot min 3 Views Date of Exam: Exam# [id number] Ordering Dr: Barrington Sanchez DO PROCEDURE: FOOT [...] either foot. Moderate osteoarthritis bilaterally. Reading Location: [id number] CC: Dr. Jaycob Yang MD; Dr. Barrington Sanchez DO ~ Research Soil Scientist: Signed [facility]07-07-2025 Discharge summary [facility] Medical Records Department [address] [place] [address] Emergency Department Summary 05/31/25 MR#: [id number] Acct: [id number] Name: LIBRADO GUILLEN Rep #:[id number] : 1945 79 From: Lewis Turpin DO [...] really did not know what he was lookingat he states that he sent him home and he states that the neck several days his pain is severe to the [facility] the emergency department and he states that the doctor there said require you. Thisis an emergency room go see your doctor he states that he followed up with his PCP and he was given some medication with fungal properties as well as lidocaine as he states that his lips and his tongue on fire and he could not take the pain anymore thereforehe came here for further evaluation management [facility] Medical History Zenkers diverticulum BPH (benign prostatic [...] (Miralax) vedolizumab 300 mg intravenous mg .Route 05/29/25/08/19 History solution (Entyvio) albuterol sulfate 90 mcg/actuation [...] his mouth as noted above denies change invision double vision blurry vision Cardiovascular: Denies chest [...] follow commands knew that she was at [facility] years 2024 Skin: Warm, dry, tact [...] patient he was unhappy with thisplan but understoodwith our discussions that I cannot admit him myself. 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 Print Language: Serbian Disposition Disposition: Home, Self Care What to do if you have Problems For any increased pain, shortness of breath, bleeding, nausea or vomiting, chestpain, or any unexpected problems, contact your Primary Care Provider. Call [facility] ([phone]) or report tothe closest Emergency Room. Call 911 if necessary. 05/31/25 1052 Cosigner Signature (if applicable): CC: Dr. Jaycob Yang MD ~ Signed [facility]04-14-2025 Consult note Author Barry Kline [facility] Note Date/Time March 08, 2025 4:3 7pm [facility] Medical Records Department [address] [place] [address] Pre-Anesthesia Evaluation 03/08/25 1637 MR#: [id number] Acct: [id number] Name: LIBRADO GUILLEN Rep #:[id number] : 1945 79 From: Barry Kline MD PCP: Dr. Jaycob Yang MD Status:REG SD C Y Race: C Location: [place] [address] ASA Classification* ASA Classification ASA Classification: 2 [...] FB Esophagous Anesthesia History Anesthesia History - laboratory animal caretaker: Anesthesia History - laboratory animal caretaker Hx Hospitalization No 12/25/19 17:02 Any Problems [...] take am of surgery PONV PONV - laboratory animal caretaker: PONV - laboratory animal caretaker Female HX of Motion Sickness HX of N/V After Surgery Non-Smoker Duration of Surgery greater than 60 minutes Number of Risk Factors PONV Score Height & Weight Height & Weight: Anesthesia: Height & Weight Height 5 ft 10 in 03/08/25 16:10 Weight: 111.6 kg 03/08/25 16:10 Body Mass Index (BMI) 35.3 03/08/25 16:10 Respiratory Assessment Respiratory Assessment - laboratory animal caretaker: Respiratory Tract Infection Hx - laboratory animal caretaker Hx Respiratory Tract Infection No 03/08/25 16:10 STOP Sleep Apnea STOP Sleep Apnea - laboratory animal caretaker: STOP Sleep Apnea - laboratory animal caretaker Hx Hypertension No 04/19/21 22:38 Hx Sleep [...] Tobacco Use History Tobacco Use History - laboratory animal caretaker: Tobacco Use History - laboratory animal caretaker Tobacco Use Smoking Status Former smoker 03/08/25 14:34 Hx Tobacco Use No 12/25/19 17:02 Years Smoking Packs Smoked per Day Smoking Cessation Date was No - quit smoking greater 03/08/25 14:34 within the last 15 years than 15 years ago Hx Smoking Cessation Date 04/18/94 03/08/25 14:34 Hx Smoking Cessation No 03/08/25 14:34 Counseling Hematologic Medial History Hematologic Hx - laboratory animal caretaker: Hematologic 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 Specify any problems Hx of Preganancy in last 3 Months Nurse Filling Out Transfusion & Questions: Date: Time: Patient unable to answer at this time (ie. confused, unrespo /Reproduction History /Reproductive History - laboratory animal caretaker: /Reproductive Hx- laboratory animal caretaker Hx Now No 03/08/25 16:10 Gestational Age (in weeks): EDC: Hx Hx Para Hx Section SAB No 03/08/25 16:10 [facility] Medical History Zenkers diverticulum BPH (benign [...] 2.5 mg/3 mL 1 puff inhalation Q4H WI N PRN Sob 11/30/19 Unknown History (0.083 [...] additional complaints, except as documented. 03/08/25 1637 <Electronically signed by Barry Kline MD > Date _ Barry Kline MD Cosigner Signature: Date CC: ~ Signed [facility] Work Phone: 1(428) 627-699504-14-2025 Evaluation note* Diagnosis Onset Date Resolution Status Admit Date Esophageal obstruction due t o food impaction acute March 08, 2025 4:31pm [facility] Work Phone: 1(601) 760-136304-14-2025 Evaluation note* Diagnosis Onset Date Resolution Status Admit Date Esophageal obstruction due t o food impaction acute March 08, 2025 4:31pm Oral thrush acute May 29 1:02pm [facility] Work Phone: 1(157) 759-668804-14-2025 Evaluation note* Diagnosis Onset Date Resolution Status Admit Date Esophageal obstruction due t o food impaction acute March 08, 2025 4:31pm Oral thrush acute May 29 1:02pm Ambulatory dysfunction acute Ju ly 2024 10:03pm Bilateral foot pain acute June 08, 2025 10:03pm Elevated blood pressure reading acut e June 08, 2025 10:03pm Generalized weakness acute June 08, 2025 10:03pm History of Crohn's disease acute June 08, 2025 10:03pm Obesity (BMI 30-39.9) acute May 10:03pm [facility] Work Phone: 1(387) 640-567204-14-2025 Evaluation note* Diagnosis Onset Date Resolution Status Admit Date Esophageal obstruction due t o food impaction acute March 08, 2025 4:31pm Oral thrush acute May 29 1:02pm Adverse drug reaction acute May 10:03pm Ambulatory dysfunction acute Ju ly 2024 10:03pm Bilateral foot pain acute June 08, 2025 10:03pm Elevated blood pressure reading acut e June 08, 2025 10:03pm Generalized weakness acute June 08, 2025 10:03pm History of Crohn's disease acute June 08, 2025 10:03pm Neuropathy acute June 08 10:03pm Obesity (BMI 30-39.9) acute May 10:03pm [facility] Work Phone: 1(261) 626-269804-14-2025 Consult note [facility] Medical Records Department [address] [place] [address] Anesthesia Postop Eval I 03/08/25 1829 MR#: [id number] Acct: [id number] Name: LIBRADO GUILLEN Rep #:[id number] : 1945 79 From: Barry Kline MD PCP: Dr. Jaycob Yang MD Status:REG SD C Y Race: C Location: [place] [address] Anesthesia: Postop Eval I Current Vital Signs [...] document: Postop Eval 1 completed: Yes 03/08/251829 > Date _ Barry Kline MD Cosigner Signature: Date CC: ~ Signed [facility]04-14-2025 Consult note [facility] Medical Records Department [address] [place] [address] Anesthesia Postop Eval II 03/08/251829 MR#: [id number] Acct: [id number] Name: LIBRADO GUILLEN Rep #:[id number] : 1945 79 From: Barry Kline MD PCP: Dr. Jaycob Yang MD Status:REG SD C Y Race: C Location: [place] [address] Anesthesia Postop Eval I Sum Postop Eval [...] 0 nausea: No Vomiting: No 03/08/25 1830 > Date _ Barry Kline MD Cosignbrit Signature: Date CC: ~ Signed [facility]04-14-2025 Procedure note [facility] Medical Records Department [address] [place] [address] EGD Report MR#: [id number] Acct: [id number] Name: LIBRADO GUILLEN Rep #:[id number] : 1945 79 From: Geovani Ramirez DO [...] present medications. Procedure Code(s): --- Professional --- 33633, Esophagogastroduodenoscopy, flexible, transoral; with removal of foreign body(s) CPT copyright 2021 [employer]. All rights reserved. The codes documented in this report are preliminary and upon medical record coder review may be revised to meet current compliance requirements. Geovani Ramirez DO 03/08/2025 6:24:36 PM This report has been signed electronically. Number of Addenda: 0 Note Initiated On: 03/08/2025 5:48 PM 03/08/251823 Date _ Geovani Ramirez DO Cosigner Signature: Date (if indicated) CC: Dr. Jaycob Yang MD; Geovani Ramirez DO ~ Date Dictated: 03/08/251747 Date Transcribed: Research Soil Scientist: RF Signed [facility]04-14-2025 Procedure note [facility] Medical Records Department [address] [place] [address] Operative Report - CC Letter MR#: [id number] Acct: [id number] Name: LIBRADO GUILLEN Rep #:[id number] : 1945 79 From: Geovani Ramirez DO PCP: Dr. Jaycob Yang MD Status:REG SD C 03/08/2025 Jaycob Yang Md Re : Upper GI endoscopy procedure for Librado Guillen Ely Yang This procedure was performed on Saturday, March [...] PM This report has been signed electronically. 03/08/251823 Date _ Geovani Thomas Signature: Date (if indicated) CC: Dr. Jaycob Yang MD; Geovani Ramirez DO ~ Date Dictated: 03/08/25 1748 Date Transcribed: Research Soil Scientist: RF Signed [facility]04-14-2025 History and physical note [facility] Medical Records Department [address] [place] [address] History & Physical Exam 03/08/25 1726 MR#: [id number] Acct: [id number] Name: LIBRADO GUILLEN Rep #:[id number] : 1945 79 From: Geovani Ramirez DO PCP: Dr. Jaycob Yang MD Status:REG SD C Location: [facility] A-3 HPI - General General Date of [...] it up but did not remove it. [facility] Medical History Zenkers diverticulum BPH (benign [...] 2.5 mg/3 mL 1 puff inhalation Q4H WI N PRN Sob 11/30/19 Unknown History (0.083 [...] Jaycob Yang MD; Geovani Ramirez DO~ Signed [facility]04-14-2025 [facility] Medical Records Department [address] [place] [address] History Physical Exam 03/08/25 1726 MR#: [id number] Acct: [id number] Name: LIBRADO GUILLEN Rep #: [id number] : 1945 79 From: Geovani Ramirez DO PCP: Dr. Jaycob Yang MD Status:[employer] Location: [place] [address] HPI - General General Date of Admission: [...] it up but did not remove it. [facility] Medical History Zenkers diverticulum BPH (benign [...] Reaction Status Date / Time adalimumab (From Muxlim) Allergy itching Verified 03/08/25 14:11 Family History [...] He was explained al (more content not included)...[facility]04-14-2025 Consult note [facility] Medical Records Department [address] [place] [address] Pre-Anesthesia Evaluation 03/08/25 1637 MR#: [id number] Acct: [id number] Name: LIBRADO GUILLEN Rep #:[id number] : 1945 79 From: Barry Kline MD PCP: Dr. Jaycob Yang MD Status:REG SD C Y Race: C Location: [place] [address] ASA Classification* ASA Classification ASA Classification: 2 [...] FB Esophagous Anesthesia History Anesthesia History - laboratory animal caretaker: Anesthesia History - laboratory animal caretaker Hx Hospitalization No 12/25/19 17:02 Any Problems [...] take am of surgery PONV PONV - laboratory animal caretaker: PONV - laboratory animal caretaker Female HX of Motion Sickness HX of N/V After Surgery Non-Smoker Duration of Surgery greater than 60 minutes Number of Risk Factors PONV Score Height & Weight Height & Weight: Anesthesia: Height & Weight Height 5 ft 10 in 03/08/25 16:10 Weight: 111.6 kg 03/08/25 16:10 Body Mass Index (BMI) 35.3 03/08/25 16:10 Respiratory Assessment Respiratory Assessment - laboratory animal caretaker: Respiratory Tract Infection Hx - laboratory animal caretaker Hx Respiratory Tract Infection No 03/08/25 16:10 STOP Sleep Apnea STOP Sleep Apnea - laboratory animal caretaker: STOP Sleep Apnea - laboratory animal caretaker Hx Hypertension No 04/19/21 22:38 Hx Sleep [...] Tobacco Use History Tobacco Use History - laboratory animal caretaker: Tobacco Use History - laboratory animal caretaker Tobacco Use Smoking Status Former smoker 03/08/25 14:34 Hx Tobacco Use No 12/25/19 17:02 Years Smoking Packs Smoked per Day Smoking Cessation Date was No - quit smoking greater 03/08/25 14:34 within the last 15 years than 15 years ago Hx Smoking Cessation Date 04/18/94 03/08/25 14:34 Hx Smoking Cessation No 03/08/25 14:34 Counseling Hematologic Medial History Hematologic Hx - laboratory animal caretaker: Hematologic 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 Specify any problems Hx of Preganancy in last 3 Months Nurse Filling Out Transfusion & Questions: Date: Time: Patient unable to answer at this time (ie. confused, unrespo /Reproduction History /Reproductive History - laboratory animal caretaker: /Reproductive Hx- laboratory animal caretaker Hx Now No 03/08/25 16:10 Gestational Age (in weeks): EDC: Hx Hx Para Hx Section SAB No 03/08/25 16:10 [facility] Medical History Zenkers diverticulum BPH (benign [...] 2.5 mg/3 mL 1 puff inhalation Q4H WI N PRN Sob 11/30/19 Unknown History (0.083 [...] hydrocodone-acetaminophen 5-325mg 1 tab PO Q6H PRN daivd n 3 days #12 03/29/22 Unknown Rx [...] MD Cosigner Signature: Date CC: ~ Signed [facility]10-24-2024 Consult note Author Barry Kline [facility] Note Date/Time March 08, 2025 6:3 0pm [facility] Medical Records Department [address] [place] [address] Anesthesia Postop Eval II 03/08/251829 MR#: [id number] Acct: [id number] Name: LIBRADO GUILLEN Rep #:[id number] : 1945 79 From: Barry Kline MD PCP: Dr. Jaycob Yang MD Status:REG SD C Y Race: C Location: [place] [address] Anesthesia Postop Eval I Sum Postop Eval [...] Level: 0 nausea: No Vomiting: No 03/08/251829 <Electronically signed by Barry Kline MD > Date _ Barry Kline MD Cosigner Signature: Date CC: ~ Signed [facility] Work Phone: 1(263) 110-880709-23-2024 History of Present illness Narrative* Malou Villagomez APRN.TRIPE FINISHER - 08/17/2024 11:00 AM EDT HISTORY AND PHYSICAL Librado Guillen : 1945 REF[facility]IC[facility] CHIEF COMPLAINT: Patient presents with: Consult: EGD [...] ulcers/ peptic ulcer disease. Jonas presented to [facility] ED for CP. Cardiac work up [...] DVT of lower extremity (deep venous thrombosis) (HCC) 07/11/2020 LLE Esophageal reflux Gastroesophageal reflux IBS [...] he can not find a ride to [place] and would like to stay local. He is already a patient of Dr. Andujar, [facility]'t [facility] anymore. If needed I can fax a consult for GI to [facility]. Jonas will call me if he [...] edited and updated as necessary. Malou Villagomez APRN.SHAR documented in this [facility]24 NoteHNO ID: [id number] Author: MALOU VILLAGOMEZ APRN.SHAR Service: ? Author Type: Nurse Practitioner Type: Progress Notes Filed: 08/17/2024 11:42 Note Text: HISTORY AND PHYSICAL Librado Guillen : 1945 REFERRING [facility]IC[facility] CHIEF COMPLAINT: Patient presents with: Consult: EGD [...] ulcers/ peptic ulcer disease. Jonas presented to [facility] ED for CP. Cardiac work up [...] DVT of lower extremity (deep venous thrombosis) (HCC) 07/11/2020 LLE Esophageal reflux Gastroesophageal reflux IBS (irritable bowel syndrome) Meningioma (HCC) right frontal lobe FABIANO (obstructive sleep apnea) compliant with CPAP at night Osteopenia Zenker's diverticulum PAST SURGICAL HISTORY Procedure Laterality Date COLONOSCOPY approx 06/2021 EGD W/O BRSH SPEC VARICIES INJ 06/2021 PAST SURGICAL HISTORY OF 1973 gallbladder removed PAST SURGICAL HISTORY OF 1974 right rib removed; TOS PAST (more content not included)...[facility] note Author Barry Kline [facility] Note Date/Time March 08, 2025 6:3 0pm [facility] Medical Records Department [address] [place] [address] Anesthesia Postop Eval I 03/08/251828 MR#: [id number] Acct: [id number] Name: LIBRADO GUILLEN Rep #:[id number] : 1945 79 From: Barry Kline MD PCP: Dr. Jaycob Yang MD Status:REG SD C Y Race: C Location: [place] [address] Anesthesia: Postop Eval I Current Vital Signs [...] MD Cosigner Signature: Date CC: ~ Signed [facility] Work Phone: Discharge summary Author Lewis Turpin [facility] Note Date/Time May 31, 2025 10:59 am [facility] Medical Records Department [address] [place] [address] Emergency Department Summary 05/31/25 MR#: [id number] Acct: [id number] Name: LIBRADO GUILLEN Rep #:[id number] : 1945 79 From: Lewis Turpin DO [...] days his pain is severe to the [facility] the emergency department and he states that [...] thereforehe came here for further evaluation management [facility] Medical History Zenkers diverticulum BPH (benign prostatic [...] follow commands knew that she was at [facility] years 2024 Skin: Warm, dry, tact [...] myself. 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 as well as primary care physician return [...] % (Auto) 60.4 Lymph % (Auto) 28.0 [place] % (Auto) 9.6 Eos % (Auto) 0.0 [...] Clarity Clear Urine pH 6.0 Ur Specific [place] 1.020 Urine Protein 30 H Urine Glucose (UA) Normal Urine Ketones Negative Urine Occult Blood Negative Urine Nitrite Negative Urine Bilirubin Negative Urine Urobilinogen Normal Ur Leukocyte Esterase Negative Urine RBC 0 SEEN Urine WBC 0-5 SEEN Ur Squamous Epith Cells 0 SEEN Urine Bacteria RARE Hyaline Casts 0-5 SEEN Urine Mucus 2+ Discharge Plan Triage Chief Complaint: Other, Pain/Inj ED Provider: Turpin,Lewis Dx/Rx/DC Orders Clinical Impression: Oral thrush Prescriptions: [...] return with any other concerns. Print Language: Serbian Disposition Disposition: Home, Self Care What to do if you have Problems For any increased pain, shortness of breath, bleeding, nausea or vomiting, chestpain, or any unexpected problems, contact your Primary Care Provider. Call [facility] ([phone]) or report to the closest Emergency Room. Call 911 if necessary. 05/31/25 1059 <Electronically signed by Lewis Turpin DO> Cosigner Signature (if applicable): CC: Dr. 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 Jaycob Yang MD Status:REG SD C Location: [facility] A HPI - General General Date of Admission: [...] it up but did not remove it. [facility] Medical History Zenkers diverticulum BPH (benign [...] 2.5 mg/3 mL 1 puff inhalation Q4H WI N PRN Sob 11/30/19 Unknown History (0.083 [...] Jaycob Yang MD; Geovani Ramirez DO~ Signed [facility] Work Phone: Hospital Discharge instructions Additional Instructions Please return for any worsening symptoms. You had a negative chest pain work-up today. Best of luck in the upcoming weeksWMercy Health Work Phone: Hospital Discharge instructions Additional Instructions Please follow-up for an outpatient stress test. In the meantime if symptoms worsen return to the ER for reevaluation.[facility] Work Phone: Hospital Discharge instructionsAdditional Instructions Take the new prescription of sent to your pharmacy as prescribed the dose will be increased by 100 mg you need to take the entirety of this medication do not stop taking it if you feel that this is not working. Use the nystatin as well. Follow-up your doctor in outpatient setting return with any other concerns.[facility] Work Phone: Reason for referral (narrative)No reason for referral information availableWMercy Health Work Phone: Summary Purpose Family History No Family History Records Found Relationship Condition Age at Onset Recorded Date/T tesfaye mother Congestive heart failure Unknown father Malignant neoplasm Unknown Advance Directives No Advanced Directives Records Found Advance Directive Response Recorded Date/ Time Name of Medical Power of Medical Scheduler ? November 26, 2021 10:51am Advance Directives Yes April 21 7:08pm Living Will No December 26 2:55pm Power of Medical Scheduler No December 26, 2021 2:55pm Advance Directive Response Recorded Date/ Time Advance Directives Yes April 21 7:08pm Living Will Yes March 29, 2022 1: 48pm Power of Medical Scheduler Yes March 29, 2022 1:48pm Advance Directive Response Recorded Date/ Time Name of Medical Power of Medical Scheduler ? October 12, 2022 6:51pm Advance Directives Yes April 21 4 6:08pm Living Will Yes October 12, 2 022 6:51pm Power of Medical Scheduler Yes October 12, 2022 6:51pm Advance Directive Response Recorded Date/ Time Name of Medical Power of Medical Scheduler ? October 12, 2022 6:51pm Advance Directives Yes April 21 4 6:08pm Living Will No January 07, 2 023 1:30pm Power of Medical Scheduler No January 07, 2023 1:30pm Advance Directive Response Recorded Date/ Time Advance Directives Yes April 21 7:08pm Living Will No January 07, 2 023 2:30pm Power of Medical Scheduler No January 07, 2023 2:30pm Advance Directive Response Recorded Date/ Time Advance Directives Yes April 21 6:08pm Living Will No Tamara 15th, 20 24 4:36pm Power of Medical Scheduler No December 09, 2023 4:36pm Advance Directive Response Recorded Date/ Time Advance Directives Yes April 21 7:08pm Advance Directive Response Recorded Date/ Time Living Will No March 08, 2025 2:34pm Do you have a Healthcare Power of Medical Scheduler? No March 08, 2025 2:34pm Advance Directives Yes April 21 7:08pm Advance Directive Response Recorded Date/ Time Living Will No March 08, 2025 2:34pm Do you have a Healthcare Power of Medical Scheduler? No March 08, 2025 2:34pm Do you have a Healthcare Power of Medical Scheduler? No May 31, 2025 7:25am Advance Directives Yes April 21 7:08pm Advance Directive Response Recorded Date/ Time Living Will No March 08, 2025 2:34pm Do you have a Healthcare Power of Medical Scheduler? No March 08, 2025 2:34pm Do you have a Healthcare Power of Medical Scheduler? Yes June 08, 2025 5:44pm Do you have a Healthcare Power of Medical Scheduler? No May 31, 2025 7:25am Advance Directives Yes April 21 7:08pm Advance Directive Response Recorded Date/ Time Living Will No March 08, 2025 2:34pm Do you have a Healthcare Power of Medical Scheduler? No March 08, 2025 2:34pm Do you have a Healthcare Power of Medical Scheduler? Yes June 08, 2025 10:58pm Do you have a Healthcare Power of Medical Scheduler? No May 31, 2025 7:25am Advance Directives Yes April 21 7:08pm Procedure Findings Note HNO ID: [id number]: Donald Teran Jr.Service: Hand SurgeryAuthor Type: PhysicianType: Operative ReportFiled: 10/23/2018 2:09 PMNote Text:OPERATIVE NOTESURGERY DATE: 10/23/2018Incision/Procedure Start Time: 1353Incision Close/Procedure End Time: 1405Surgeon(s)/Proceduralist(s) and Machine Burrer(s):Robin/ Shantel PGY-2Procedures:Right Carpal Tunnel Release, CPT 26919Plneuiheyh: MAC and LocalFindings: See belowEstimated Blood Loss: Minimal mlsSpecimens: NoneComplications: NonePreop Diagnosis: Right Carpal Tunnel SyndromePostop Diagnosis: SameCLINICAL SCENARIO: This is a 73 year oldcky-xdvg-zen male, who presented [facility] office with signs [...] Oral thrush May 29, 2025 1:02p m Chief Complaint Admit Date FOOD IN THROAT March 08, 2025 4:3 1pm FOOD IN THROAT March 08, 2025 5:2 6pm ACUTE PHARYNGITIS May 19, 2025 3:09 pm CONCERN FOR THRUSH May 29, 2025 1:02p m oral May 31, 2025 7:23a m BILATERAL FOOT PAIN WITH INABILITY TO AM BULATE June 08, 2025 10:03pm Reason for Visit Admit Date Esophageal obstruction due to food impac tion March 08, 2025 4:31pm Oral thrush May 29, 2025 1:02p m Ambulatory dysfunction June 08, 2025 1 0:03pm Bilateral foot pain June 08, 2025 10:0 3pm Elevated blood pressure reading May 10:03pm Generalized weakness June 08, 2025 10: 03pm History of Crohn's disease June 08 10:03pm Obesity (BMI 30-39.9) June 08, 2025 10 :03pm Reason for Visit Admit Date Esophageal obstruction due to food impac tion March 08, 2025 4:31pm Oral thrush May 29, 2025 1:02p m Adverse drug reaction June 08, 2025 10 :03pm Ambulatory dysfunction June 08, 2025 1 0:03pm Bilateral foot pain June 08, 2025 10:0 3pm Elevated blood pressure reading May 10:03pm Generalized weakness June 08, 2025 10: 03pm History of Crohn's disease June 08 10:03pm Neuropathy June 08, 2025 10:0 3pm Obesity (BMI 30-39.9) June 08, 2025 10 :03pm Chief Complaint Admit Date FOOD IN THROAT March 08, 2025 4:3 1pm FOOD IN THROAT March 08, 2025 5:2 6pm ACUTE PHARYNGITIS May 19, 2025 3:09 pm CONCERN FOR THRUSH May 29, 2025 1:02p m oral May 31, 2025 7:23a m BILATERAL FOOT PAIN WITH INABILITY TO AM BULATE June 08, 2025 10:03pm BILATERAL FOOT PAIN WITH INABILITY TO AM BULATE June 09, 2025 9:56am BILATERAL FOOT PAIN WITH INABILITY TO AM BULATE June 10, 2025 11:32am Additional Source Comments (unrecognized sect ion and content) No Status Records FoundNo Status Records FoundNo Status Records FoundNo Status Records FoundNo Status Records FoundNo Status Records FoundNo Status Records FoundNo Status Records Found INFORMATION SOURCE (unrecogn ized section and content) DATE CREATED AUTHOR 11/17/2018 [facility] DATE CREATED AUTHOR AUTHOR'S ORGANIZ ATION 11/17/2018 [facility] DATE CREATED AUTHOR AUTHOR'S ORGANIZ ATION 07/16/2020 [facility] ([place]) DATE CREATED AUTHOR AUTHOR'S ORGANIZ ATION 12/26/2021 [facility] DATE CREATED AUTHOR AUTHOR'S ORGANIZ ATION 03/28/2022 [facility] DATE CREATED AUTHOR AUTHOR'S ORGANIZ ATION 12/16/2024 [facility] DATE CREATED AUTHOR AUTHOR'S ORGANIZ ATION 02/13/2025 [facility] DATE CREATED AUTHOR AUTHOR'S ORGANIZ ATION 06/12/2025 [facility] Goals (unrecognized section and content) Goals [...] Raymundo MD Family Provider Active Marlene Corea DO Primary Care Provider Active Team Status: Inactive Member Role Status Dates Marlene Corea DO Primary Care Provider Active Dr. Camilo Ge , Attending Provider, Emergency Pro vider Active Team Status: Inactive Member Role Status Dates Marlene Corea DO Primary Care Provider Active Dr. Zurdo Alcala MD Emergency Provider Active Team Status: Active Member Role Status Dates Marlene Corea DO Primary Care Provider Active Dr. He Diaz MD Attending Provider Active Team Status: Inactive Member Role Status Dates Marlene Corea DO Primary Care Provider Active Dr. Zurdo Alcala MD Attending Provider, Emergency Provider Active Team Status: Inactive Member Role Status Asha Corea , DO Primary Care Provider, Attending Provider Active Team Status: Active Member Role Status Asha Corea , DO Primary Care Provider Active Dr. Valerie Conklin MD Attending Provider, Referring P el Active Team Status: Inactive Member Role Status Asha Corea DO Primary Care Provider Active Dr. Rudi Best DO Emergency Provider Active Account Classification Clerk Relationship Specialty Start Date End Date Jyacob Yang MD [address] [place] [address] PCP - General Internal Medicine 08/17/24 Team [...] 08, 2025 End: March 08, 2025 Dr. Barrignton Sanchez DO Emergency Provider Active Start: March [...] 2025 Team Status: Inactive Member Role/Relationship Status sAha Yang MD Primary Care Provider Active St [...] May 27, 2025 End: May 27, 2025 Team Status: Inactive Member [...] 2025 Team Status: Active Member Role/Relationship Status Dates Jaycob Yang MD Primary Care Provider Active St [...] 2025 End: May 19, 2025 Team Status: Inactive Member Role/Relationship Status Asha Yang MD Primary Care Provider Active St art: May 27, 2025 End: May 27, 2025 Jaycob Yang MD Attending Provider Active Start : May 27, 2025 End: May 27, 2025 Jaycob Yang MD Referring Provider Active Start : May 27, 2025 End: May 27, 2025 Team Status: Inactive Member [...] End: May 31, 2025 Dr. Lewis Turpin , Attending Provider Active Start: May 31, 2025 End: May 31, 2025 Dr. Lewis Turpin DO Emergency Provider Active Start: May 31, 2025 End: May 31, 2025 Team Status: Active Member Role/Relationship Status Asha Yang MD Primary Care Provider Active St art: June 04, 2025 Jaycob Yang MD Attending Provider Active Start : June 04, 2025 Jaycob Yang MD Referring Provider Active Start : June 04, 2025 Team Status: Active Member Role/Relationship Status Dates Jaycob Yang MD Primary Care Provider Active St art: June 08, 2025 Dr. Barrington Sanchez , Emergency Provider Active Start: June 08, 2025 Dr. Diomedes Fitzpatrick DO Admit Provider Active Start: June 08, 2025 Dr. Diomedes Fitzpatrick DO Attending Provider Active Start: June 08, 2025 Team Status: Inactive Member Role/Relationship Status Asha Yang MD Primary Care Provider Active St art: June 04, 2025 End: June 04, 2025 Jaycob Yang MD Attending Provider Active Start : June 04, 2025 End: June 04, 2025 Jaycob Yang MD Referring Provider Active Start : June 04, 2025 End: June 04, 2025 Team Status: Active Member Role/Relationship Status Asha Yang MD Primary Care Provider Active St art: June 08, 2025 Dr. Barrington Sanchez DO Emergency Provider Active Start: June 08, 2025 Dr. Diomedes Fitzpatrick , Admit Provider Active Start: June 08, 2025 Dr. Diomedes Fitzpatrick DO Other Provider Active Start: June 08, 2025 Dr. Paulie Majano MD Attending Provider Active Start: June 08, 2025 Team Status: Inactive Member Role/Relationship Status Asha Yang MD Primary Care Provider Active St art: June 08, 2025 End: June 10, 2025 Dr. Barrington Sanchez DO Emergency Provider Active Start: June 08, 2025 End: June 10, 2025 Dr. Diomedes Fitzpatrick DO Admit Provider Active Start: June 08, 2025 End: June 10, 2025 Dr. Diomedes Fitzpatrick DO Other Provider Active Start: June 08, 2025 End: June 10, 2025 Dr. Paulie Majano MD Attending Provider Active Start: June 08, 2025 End: June 10, 2025 Team Status: Active Member Role/Relationship Status Asha Yang MD Primary Care Provider Active St art: June 09, 2025 Dr. Barrington Sanchez DO Emergency Provider Active Start: June 09, 2025 Dr. Diomedes Fitzpatrick DO Admit Provider Active Start: June 09, 2025 Dr. Diomedes Fitzpatrick DO Other Provider Active Start: June 09, 2025 Dr. Paulie Majano MD Attending Provider Active Start: June 09, 2025 Dr. Paulie Majano MD Other Provider Active Sta rt: June 09, 2025 Team Status: Active Member Role/Relationship Status Dates Jaycob Yang MD Primary Care Provider Active St art: June 10, 2025 Dr. Barrington Sanchez DO Emergency Provider Active Start: June 10, 2025 Dr. Diomedes Fitzpatrick DO Admit Provider Active Start: June 10, 2025 Dr. Diomedes Fitzpatrick DO Other Provider Active Start: June 10, 2025 Dr. Paulie Majano MD Attending Provider Active Start: June 10, 2025 Dr. Paulie Majano MD Other Provider Active Sta rt: June 10, 2025 Source Comments (unrecognize d section and content) In the event this informatio n is protected by the Federal Confidentiality of Alcohol and Drug Abuse Patient Records regulations: The Federal rules restrict any use of the information to criminally investigate or prosecute any alcohol or drug abuse patient.[facility] Reason for Visit (unrecogniz ed section and content) Reason Comments Consult EGD and colonoscopy consultation. Specialty Diagnoses / Procedures Referred By Contac t Referred To Contact General Surgery / GENERAL SURGERY Diagnoses consult for colonoscopy and EGD Procedures OFFICE CONSULT [facility] Medical Alexx Link MD [address] [place] [address] Referral ID Status Reason Start Date Expiration Date Visits Re quested Visits Authorized [id number] Closed 08/11/2024 10/10/2024 1 1 FOR RECORDS [...] BE BASED ON THE PRIMARY CLINICAL RECORDS. [facility]. provides no warranty or guarantee of the accuracy or completeness of information in this document.
== END 2025-06-13 06:37 | disposition home or self-care (01) ==
LOC: ED 06:36
PROVIDERS: Emergency Provider Emergency Medicine; PCP Family Medicine; Visit Provider Emergency Medicine
DX: K13.0 Diseases of lips (principal); K50.90 Crohn's disease, unspecified, without complications; Z87.891 Personal history of nicotine dependence
CPT/HCPCS: 99282

== ENCOUNTER 2025-07-19 10:39 | Emergency (ER) | payer OTHER, SELFPAY ==
[2025-07-19 10:40] VITALS: BP 132/79; PULSE 73; RESP 18; TEMP 36.4; O2SAT 100; BMI 36.8
[2025-07-19 11:13] LABS: Hematocrit 41.2 % (40-54); Hemoglobin 14.1 g/dL (13.0-16.5); Immature Granulocytes Count 0.080 X10^3/uL (0.0-0.0); Mean Corp Hgb Conc 34.2 g/dL (32-36); Mean Corpuscular Volume 93.4 fL (80-94); Mean Platelet Vol. 9.5 fl (6.2-12.0); NRBC Flagged by Analyzer 0 % (0-5); Platelet Count 194 K/mm3 (150-450); RBC Distribution Width CV 12.7 % (11.6-14.6); RBC Distribution Width SD 43.6 fl (35.1-43.9); Red Blood Count 4.41 M/mm3 (4.6-6.2); White Blood Count 8.8 K/mm3 (4.4-11.0)
[2025-07-19 11:46] LABS: AST(SGOT) 26 U/L (<=37); Alanine Aminotransfer ALT/SGPT 34 U/L (<=46); Albumin, Serum 4.1 g/dL (3.4-4.8); Alkaline Phosphatase 79 U/L (40-129); Anion Gap 11 (5-15); BUN 21 mg/dL (4-19); BUN/Creat Ratio 19.3 RATIO (10-20); Calcium,Total 9.4 mg/dL (7.6-11.0); Carbon Dioxide 24.9 mmol/L (21.0-32.0); Chloride 106 mmol/L (98-108); Estimated Creatinine Clearance 71.83 ml/min (50-250); Globulin 2.7 g/dL (2.2-4.2); Glucose 85 mg/dL (70-99); Potassium 4.2 mmol/L (3.3-5.1)
[2025-07-19 11:51] LABS: Red Blood Cells-Urine 0 SEEN /hpf (0-5); Squamous Epithelial Cells - UA 0 SEEN /hpf (0-5)
[2025-07-19 11:58] LABS: Color, Urine Yellow (Yellow); Glucose, Dipstick Normal (Normal); Ketone-Dipstick Negative (Negative); Leukocyte Esterase-Dipstick Negative /ul (Negative); Nitrite-Dipstick Negative (Negative); Occult Blood-Urine Negative /ul (Negative); Protein-Dipstick 15 mg/dl (Negative); Specific Gravity, Urine 1.020 (1.002-1.030); Urine Bilirubin Dipstick Negative (Negative)
[2025-07-19 12:08] LABS: Mucous, Urine 1+ /hpf (<or=2+)
--- NOTE | 2025-07-19 12:22 | EX.ED.DYSGE1 ---
HPI History of Present Illness Chief Complaint: Abd Pain Detail of Chief Complaint: Transient/fleeting right lower quadrant abdominal pain Informant: patient Onset/Context/Timing Onset: Days (Onset January 16) Context: Sudden Onset Timing: Intermittent and Lasts (2 to 3 seconds) Quality: Sharp Location: Right lower quadrant Current Severity: Gone Maximum Severity: Severe Worsened by: Nothing Relieved by: Not think Associated Symptoms Associated Symptoms: No other GI symptoms or urologic symptoms. Narrative Narrative: Patient is a 79-year-old male. He has history of Crohn's disease. He is status postcholecystectomy. He presents with transient intermittent sharp right lower quadrant pain lasting 2 to 3 seconds. He has had no vomiting or diarrhea. He denies dysuria, frequency, urgency or hematuria. He denies history of renal ureterolithiasis. He states he has 2 bowel movements a day, which is his baseline. He denies blood or mucus in the stool. He denies change in caliber or consistency of his stool. He denies back or flank pain. He has no other symptoms. 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 BPH (benign prostatic hyperplasia) History of DVT (deep vein thrombosis) GERD (gastroesophageal reflux disease) Former smoker Sleep apnea Chest pain Asthma IBS (irritable bowel syndrome) Crohn's disease Medical History no medical history Home Medications ?Medication ?Instructions ?Recorded ?Last Taken ?Type benralizumab 10 mg/0.5 mL 30 mg subcut Q8W 05/29/25 06/09/25 History subcutaneous syringe (Fasenra) polyethylene glycol 3350 17 4 g PO ONCE 05/29/25 07/18/25 History gram/dose oral powder (Miralax) vedolizumab 300 mg intravenous 300 mg IV .COMPLEX 05/29/25 06/23/25 History solution (Entyvio) albuterol sulfate 90 mcg/actuation 2 inh inhalation Q4H PRN shortness 05/31/25 05/17/25 History breath activated powder inhaler of breath bisacodyl 5 mg tablet 5 mg PO QODAY 05/31/25 07/18/25 History dicyclomine 20 mg tablet 20 mg PO 4X/DAY 05/31/25 07/19/25 History esomeprazole magnesium 40 mg 40 mg PO DAILY 05/31/25 07/19/25 History capsule,delayed release famotidine 20 mg tablet (Acid 20 mg PO QHS 05/31/25 07/18/25 History Controller) prednisone 1 mg tablet 4 mg PO DAILY 05/31/25 07/18/25 History fluticasone furoate 200 1 inh inhalation DAILY 06/08/25 07/18/25 History mcg-vilanterol 25 mcg/dose inhalation powder (Breo Ellipta) Allergy/AdvReac Type Severity Reaction Status Date / Time adalimumab (From Humira) Allergy itching Verified 07/19/25 10:41 NSAIDS (Non-Steroidal AdvReac Mild crohns Verified 07/19/25 10:41 Anti-Inflamma flare up Family History Mother CHF (congestive heart failure) Father Cancer unsure Family History no significant family his Surgical History History of colonoscopy (~06/2021) Hx of cholecystectomy Surgical History no surgical history Social History Smoking Status: Former smoker ROS ROS ED Constitutional Constitutional ED: Denies chills, fever(s), subjective, sweats or weight loss Cardiovascular Cardiovascular: Denies chest pain or palpitations Respiratory/Chest Respiratory/Chest: Denies cough, dyspnea or dyspnea on exertion Gastrointestinal Gastrointestinal: Reports abdominal pain and other Details: Greater detail HPI narrative ; Denies constipation, diarrhea, melena, nausea or vomiting Genitourinary Genitourinary ED: Denies dysuria, hematuria or urinary frequency Musculoskeletal Musculoskeletal: Denies arthralgias, back pain or myalgias Integumentary Denies rash Hematologic/Lymphatic Hematologic/Lymphatic: Reports systems reviewed and no addt'l complaints, except as documented EXAM Physical Exam Const Vital Signs: 07/19/25 10:40 Temperature 97.5 F L Temperature Source Temporal Pulse Rate 73 Respiratory Rate 18 Blood Pressure 132/79 H Blood Pressure Mean 96 Pulse Ox 100 Oxygen Delivery Method Room Air Positive well nourished and well developed Constitutional Narrative: BMI is 36.8. General Appearance ED: well developed and NAD; Negative for pallor HEENT Reports moist mucous membranes HEENT Narrative: Head is atraumatic normocephalic. Ears normal. Nares patent. Posterior pharynx is normal. Eyes PERRL and EOMs intact bilaterally General Eye ED: Negative for pale conjunctiva or scleral icterus Resp normal respiratory effort and clear to auscultation bilaterally Cardio regular rate, regular rhythm, S1 normal heart sound, S2 normal heart sound and no murmurs GI normal to inspection, nondistended, normoactive bowel sounds, non-tender and non-distended; Negative for hepatosplenomegaly or no masses GI Narrative: There is no tympany on percussion. There is no fluid wave. His abdomen is protuberant Palpation: soft Back/Spine no CVA tenderness Extremity normal to inspection Neuro oriented x3 and CN's II-XII intact bilaterally Sensorium / Orientation: alert Psych mental status grossly normal Skin no rashes or lesions noted, no wounds and skin turgor normal General Skin Exam: Negative for jaundice or pallor MDM MDM MDM Narrative Medical decision making narrative: Differential diagnoses abdominal pain unknown etiology. Doubt appendicitis or exacerbation of his Crohn's. Atypical presentation for ureterolithiasis. Will obtain CBC, electrolyte panel and UA. History & Record Review Additional record(s) reviewed:: Prior outpatient record (He is followed by Dr. Ramirez. He was seen on March 08 for obstruction of the esophagus due to food bolus.) and Prior ED visit (Patient was seen twice in May. He was admitted for adverse drug reaction June 08. He was seen by Dr. Pinzon at that time. Dr. Russo's H&P was reviewed.) Lab Data Attestation: I reviewed the patient's lab results. Lab results narrative: CBC is unremarkable. Competence of metabolic panel is unremarkable. Urinalysis is negative. Labs: Laboratory Results - last 24 hr 07/19/25 07/19/25 11:01 11:44 WBC 8.8 RBC 4.41 L Hgb 14.1 Hct 41.2 MCV 93.4 MCH 32.0 MCHC 34.2 RDW Std Deviation 43.6 RDW Coeff of Sandra 12.7 Plt Count 194 MPV 9.5 Immature Gran % (Auto) 0.900 Neut % (Auto) 63.4 Lymph % (Auto) 21.7 [place] % (Auto) 10.7 H Eos % (Auto) 2.8 Baso % (Auto) 0.5 Absolute Neuts (auto) 5.6 Absolute Lymphs (auto) 1.91 Nucleated RBC % 0 Sodium 142 Potassium 4.2 Chloride 106 Carbon Dioxide 24.9 Anion Gap 11 BUN 21 H Creatinine 1.10 Estim Creat Clear Calc 71.83 Est GFR (MDRD) Non-Af 69 BUN/Creatinine Ratio 19.3 Glucose 85 Calcium 9.4 Total Bilirubin 0.30 AST 26 ALT 34 Alkaline Phosphatase 79 Total Protein 6.8 Albumin 4.1 Globulin 2.7 Albumin/Globulin Ratio 1.5 Urine Color Yellow Urine Clarity Clear Urine pH 6.0 Ur Specific [place] 1.020 Urine Protein 15 H Urine Glucose (UA) Normal Urine Ketones Negative Urine Occult Blood Negative Urine Nitrite Negative Urine Bilirubin Negative Urine Urobilinogen Normal Ur Leukocyte Esterase Negative Urine RBC 0 SEEN Urine WBC 0 SEEN Ur Squamous Epith Cells 0 SEEN Urine Bacteria 0 SEEN Urine Mucus 1+ Discharge Plan Triage Chief Complaint: Abd Pain ED Provider: Sean Saavedra Dx/Rx/DC Orders Clinical Impression: Intermittent right lower quadrant abdominal pain, Hx of Crohn's disease Instructions: ED Abdominal Pain Unkn Cause Male... Prescriptions: No Action Fasenra 10 mg/0.5 mL syringe 30 mg subcut Q8W Rx Instructions: start week 16 of treatment Entyvio 300 mg recon soln 300 mg IV .COMPLEX Rx Instructions: 300 mg intravenously q 8 weeks; 300 mg intravenously; every 8 weeks polyethylene glycol 3350 [Miralax] 17 gram/dose powder 4 g PO ONCE fluticasone furoate-vilanterol [Breo Ellipta] 200-25 mcg/dose blister with device 1 inh inhalation DAILY albuterol sulfate 90 mcg/actuation aerosol powdr breath activated 2 inh inhalation Q4H PRN (Reason: shortness of breath) prednisone 1 mg tablet 4 mg PO DAILY dicyclomine 20 mg tablet 20 mg PO 4X/DAY famotidine [Acid Controller] 20 mg tablet 20 mg PO QHS esomeprazole magnesium 40 mg capsule,delayed release(DR/EC) 40 mg PO DAILY bisacodyl 5 mg tablet 5 mg PO QODAY Primary Care Provider: Jaycob Yang Referrals: Jaycob Yang MD [Primary Care Provider] - 1 Week if not improving Print Language: Bengali Disposition Disposition: Home, Self Care
[2025-07-19 12:32] VITALS: BP 128/65; PULSE 68; RESP 16; TEMP 37; O2SAT 98
== END 2025-07-19 12:36 | disposition home or self-care (01) ==
PROVIDERS: Emergency Provider Emergency Medicine; PCP Family Medicine; Visit Provider Emergency Medicine
DX: R10.31 Right lower quadrant pain (principal); Z87.891 Personal history of nicotine dependence; Z90.49 Acquired absence of other specified parts of digestive tract; G47.30 Sleep apnea, unspecified; Z99.89 Dependence on other enabling machines and devices; K21.9 Gastro-esophageal reflux disease without esophagitis; Z79.899 Other long term (current) drug therapy; J45.909 Unspecified asthma, uncomplicated; Z79.51 Long term (current) use of inhaled steroids; Z87.19 Personal history of other diseases of the digestive system
CPT/HCPCS: 80053; 81001; 85025; 99283